=== PATIENT | female | born 2000 | race Caucasian/White ===

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

== ENCOUNTER 2022-01-10 08:00 | Outpatient (RCR) | payer OTHER, SELFPAY ==
--- NOTE | 2021-12-13 09:27 | HP.PTEVAL ---
Patient's Visit Information STEWART AQUINO is a 21 year old F referred to Physical Therapy by ARDEN Berkowitz with a diagnosis of STRAIN OF MUSCLE/TENDIN AT LOWER LEG LEVEL. Date of Evaluation: 12/13/21 Physical Therapist: Cristian Ogden, PT, Cert MDT, OCS - Visit Plan Frequency: 2x /Week Duration: 4 Weeks Plan: PATIENT PLANS TO HAVE MENISCUS REPAIR. PT INTERVETIONS ROM ,STRETCHING KNEE ,GRADED PRE'S QUADS/HAMS/HIP ,FUNCTIONAL STRENGTHNENING AND MODLITIES - Subjective This 21 y/o female presents to physical therapy with with right knee pain . Patient was tumbling gymnastics landed on knee in May 2021 felt pop and immediate edema. Pain located medial /inferior. Patient has popping after sitting for extended . Patient is scheduled for surgery at [facility] but rescheduled for April [address] Mattson. Patient had MRI at [facility] showed meniscus. Patient has continue pain with symptoms worsen. Seen [facility] recommended to reschedule surgery. Last week moving furniture felt pop caused pain thus seen Dr at [facility]. Aggravating squatting /kneeling stairs ,extended sitting. No running. Sleeping good . Alleviating factors ice and Aziza recommended brace. Denies paresthesia/tingling. Patient goal get stronger for surgery. Plan to start ENT program. MEDS : predisone 5day and muscle relaxer. 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 - Pain Right Knee Pain Intensity (Out of 10): 6 Pain Intensity Range: 10 - Objective POSTURE: mild genu recurvatum ,knee valgus. GAIT: ambulates with decrease stance time RLE with brace affecting swing phase. PALPATION: lateral joint line. EDEMA: absent. AROM: 7-127 supine knee flexion pain. MMT: quads 26.7, hamstrings 25.5 ,hip flexion/abduction 4/5 ,ankle 5/5 - Special Tests R Knee Luz Maria - Meniscus: Positive R Knee Anterior Drawer - ACL: Negative R Knee Valgus - MCL: Negative R Knee Varus - LCL: Positive - Balance/Special Test Scores Lower Extremity Functional Score: 33 - Goals Goal 1:: I with HEP for right knee Goal Time Frame: 4-6 Weeks Goal 2:: Patient to demonstrate 50% improvement with increase function and less pain Goal Time Frame: 4-6 Weeks Goal 3:: Patient to improve AROM knee 0-130 degrees to improve function with stairs Goal Time Frame: 4-6 Weeks Goal 4:: Patient to improve MMT peak force of knee by 5 to improve function Goal Time Frame: 4-6 Weeks Goal 5:: Patient to improve LFES score by 5 points to improve function and QOL. Goal Time Frame: 4-6 Weeks - Rehabilitation Potential Physical Therapy Diagnosis: Patient has meniscus tear and plans to have repair of meniscus Apr 2021 with current impairments with pain ,decrease ROM weakness and affects walking stairs and job activities thus need skilled PT PT. Rehabilitation Potential: Good - Anticipated Interventions Patient/Client Instruction: Educate patient on: Condition, Plan of Care For the Purpose of:: To decrease pain, To increase ROM, To improve muscle performance and motor function, To improve ability to perform ADL's, To increase tolerance to activity/condition/position, To improve performance and independence with ADL's, To improve ability of physical actions for home/community/work/leisure, To improve health of tissue, To decrease soft tissue restriction, To increase flexibility/ROM, To improve endurance, To improve balance, To reduce risk of recurrence, To prevent re-injury Therapeutic Exercise to Include: Strength training, Endurance training, Balance training, Postural training, Flexibilty training, Active ROM For the Purpose of:: To decrease pain, To increase ROM, To improve muscle performance and motor function, To improve ability to perform ADL's, To increase tolerance to activity/condition/position, To improve ability of physical actions for home/community/work/leisure, To improve health of tissue, To decrease soft tissue restriction, To increase flexibility/ROM, To reduce risk of recurrence, To prevent re-injury TENS: Yes IF ES: Yes Cryotherapy (ice pack, ice massage): Yes Thermo therapy (hot pack): Yes Ultrasound (thermal/non thermal): Yes For the Purpose of:: To decrease pain, To increase ROM, To improve nutrient delivery to tissue, To increase oxygenation perfusion, To improve health of tissue, To decrease soft tissue restriction Thank you for the opportunity to evaluate your patient. For Medicare and Medicare HMO plans, please review the plan of care and approve it. It will need to be FAXED BACK to us at [phone] for Medicare purposes. For Medicare only, by signing this I certify the plan of care. Please let me know if there are questions or concerns regarding this plan of care. Physician Signature: Date:
--- NOTE | 2022-01-10 08:28 | HP.PTDCSUM ---
It has been my pleasure to treat STEWART AQUINO referred by ARDEN Berkowitz, with the diagnosis of Right STRAIN OF MUSCLE/TENDIN AT LOWER LEG LEVEL for a total of 8 visit(s). Discharge Date: 01/10/22 Please see the following information for a summary of their discharge status. Subjective: Patient plan to have to have surgery meniscectomy tomorrow Right Knee Pain Intensity (Out of 10): 0 % Improvement: 50 Objective/Function: POSTURE: WFL. GAIT: reciprocal pattern. AROM: 2-135 DEGREES. MMT: quads/hams 4/5 ,hip abduction 4/5,ankle 5/5 Goal 1:: I with HEP for right knee Goal Progress: Goal Met Goal 2:: Patient to demonstrate 50% improvement with increase function and less pain Goal Progress: Progressing Goal 3:: Patient to improve AROM knee 0-130 degrees to improve function with stairs Goal Progress: Goal Met Goal 4:: Patient to improve MMT peak force of knee by 5 to improve function Goal Progress: Goal Met Goal 5:: Patient to improve LFES score by 5 points to improve function and QOL. Goal Progress: Goal Met Plan: D/C PLAN TO HAVE SURGERY Discharge Comments: SCEDULED FOR SURGERY If there are questions or concerns regarding this patient's physical therapy, please feel free to call me at [phone]. Thank you for the referral of this patient. Sincerely, Cristian Ogden, PT, Cert MDT, OCS Balance/Gait/Functional tests - Balance/Special Test Scores Lower Extremity Functional Score: 54
== END 2022-01-10 19:00 | disposition home or self-care (01) ==
LOC: PT 08:00
PROVIDERS: PCP Pediatrics; Referring Provider Physician Assistant; Visit Provider Physician Assistant
DX: S86.911D Strain of unspecified muscle(s) and tendon(s) at lower leg level, right leg, subsequent encounter (principal)
CPT/HCPCS: 97110; 97161; 97530

== ENCOUNTER 2022-02-22 08:00 | Outpatient (RCR) | payer OTHER, SELFPAY ==
--- NOTE | 2022-02-08 08:44 | HP.PTEVAL_ITS ---
Patient's Visit Information STEWART AQUINO is a 21 year old F referred to Physical Therapy by Dr. Paulo Rojas MD with a diagnosis of Right Medial Meniscal Repair and Plica Resection 01/12/22. Date of Evaluation: 02/08/22 Physical Therapist: Shilpa Crain DPT - Visit Plan Frequency: 3x /Week Duration: 4 Weeks Plan: Meniscal Repair 01/12/22- no restrictions- can wean from brace and crutches as tolerated. HEP Given IE: ROM Ex both flexion and extension and quad sets in supine/seated/prone - Subjective Right Medial Meniscal Repair and Plica Resection by Dr. Rojas 01/12/22. Original injury was gymnastics in May. Feb 03 she was given WBAT but told her to use her crutches- she is wearing a TROM brace every day. Worst: 6/10 Agg: any sort of pressure on the medial aspect of the knee. Eases: heat Best: 0/10. Describes the pain as sharp. No radiating pain into the hip/ankle. No N/T. She was given SLR during her 1 week post op so thats what she has been doing. Sleep: not disturbed- does not sleep in the brace since she saw him. 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 PMHx: none Meds: control - Objective Posture: fair throughout. Gait: slightly antalgic- decrease stance on right LE with poor heel strike. HR/TR: able without UE A. SLS: 10 sec with moderate sway. Observation: well healed incision no s/s of infection. Palpation: tender along medial joint line and medial patella. ROM: Right: 10-120 degrees Left: -5-140 degrees. Strength: Core: fair plus, Hip: 4+/5 throughout, Knee: Extn: Right: 25/24 Left: 63/64- Quad set visible but weak- mild SLR lag. Flexion: Right: 24/25 Left:50/48. Girth: Patella:36 cm 6: above:49 cm - Balance/Special Test Scores Lower Extremity Functional Score: 39 - Goals Goal 1:: Patient will be I with HEP and progression Goal Time Frame: 4-6 Weeks Goal 2:: Patient will have equal strength in bilateral flexion/extn of knees Goal Time Frame: 4-6 Weeks Goal 3:: Patient will demo 0-140 degrees of ROM in the right knee Goal Time Frame: 4-6 Weeks Goal 4:: Patient will ambulate >300 feet with a normalized gait pattern Goal Time Frame: 4-6 Weeks Goal 5:: Patient will have equal girth 6 above patella Goal Time Frame: 4-6 Weeks - Rehabilitation Potential Physical Therapy Diagnosis: Patient presents with hypomobility s/p right medial meniscal repair- she has decreased LE ROM, strength/stabilization, flex and muscular control leading to abnormal gait and decreased ability to perform ADL's. Rehabilitation Potential: Good - Anticipated Interventions Patient/Client Instruction: Educate patient on: Benefits of Fitness Program Therapeutic Exercise to Include: Strength training, Endurance training, Balance training, Coordination, Agility training, Body mechanics, Postural training, Flexibilty training, Gait and locomotor training, Neuromotor development, Dynamic Lumbar Stabilization, Scapular Strength/Stabilization TENS: Yes Cryotherapy (ice pack, ice massage): Yes Thermo therapy (hot pack): Yes Ultrasound (thermal/non thermal): No Vasopneumatic device: Yes Thank you for the opportunity to evaluate your patient. For Medicare and Medicare HMO plans, please review the plan of care and approve it. It will need to be FAXED BACK to us at [phone] for Medicare purposes. For Medicare only, by signing this I certify the plan of care. Please let me know if there are questions or concerns regarding this plan of care. Physician Signature: Date:
== END 2022-02-22 19:00 | disposition home or self-care (01) ==
LOC: PT 08:00
PROVIDERS: PCP Pediatrics; Referring Provider Orthopaedic Surgery; Visit Provider Orthopaedic Surgery
DX: S83.221A Peripheral tear of medial meniscus, current injury, right knee, initial encounter (principal)
CPT/HCPCS: 97110; 97161

== ENCOUNTER 2022-10-22 17:37 | Emergency (ER) | payer OTHER, SELFPAY ==
[2022-10-22 17:39] VITALS: BP 139/78; PULSE 124; RESP 18; TEMP 37; O2SAT 95; BMI 27.6
--- NOTE | 2022-10-22 17:46 | CT_ITS ---
INDICATION: Pain EXAMINATION: CT ABDOMEN AND PELVIS WITHOUT CONTRAST - CT Abdomen And Pelvis W/O Contrast Injection TECHNIQUE: Helically acquired images were obtained of the abdomen and pelvis without oral or IV contrast. A radiation dose optimization technique was used for this scan. IV Contrast dosage and agent: None. Oral contrast: None. COMPARISON: None. FINDINGS: LOWER CHEST: Lung bases are clear. No cardiomegaly or pericardial effusion. LIVER: Homogeneous. No focal mass. GALLBLADDER AND BILIARY TREE: No calcified gallstones. No gallbladder distension or wall edema. No intra- or extrahepatic biliary ductal dilation. PANCREAS: No focal cystic or solid mass. SPLEEN: Normal size without focal cystic or solid mass. ADRENAL GLANDS: No nodules. KIDNEYS AND URETERS: Normal renal size and position. No hydronephrosis. PERITONEUM: No ascites or free air. No other fluid collection. BOWEL: Significant colonic stool burden with the rectal thickening. Presacral haziness. Moderate colonic stool burden overall. No small bowel obstruction. Normal appendix. LYMPH NODES: No enlarged mesenteric or retroperitoneal lymph nodes. VESSELS: Aorta is non-dilated. URINARY BLADDER: Unremarkable. REPRODUCTIVE ORGANS: No pelvic masses. ABDOMINAL WALL: No discrete abdominal or pelvic wall hernia. BONES: No lytic or blastic abnormality. CT/Abdomen/Pelvis without Cont IMPRESSION: Significant colonic stool burden. Rectal thickening. Consider proctitis. Electronically Signed: Tal Ortiz MD at 19:29 EDT ,
--- NOTE | 2022-10-22 17:47 | ED.VIS.GI ---
HPI HPI - GI History of Present Illness Chief Complaint: Abd Pain Detail of Chief Complaint: Abdominal pain Informant: patient Narrative Narrative: Patient presents emergency department complaint of abdominal pain that started 5 days ago. Patient states that she ate some chicken while in [place] and afterwards started having vomiting. Patient went to urgent care and was told she may have food poisoning and was given some medication to take. Patient states that the vomiting stopped 4 days ago. She continues to have abdominal pain. She also started her menstrual period yesterday and typically the second day is painful and more heavy bleeding. Today the pain became more severe. EMS was called and they gave her Toradol 30 mg IV. Currently rates her pain a 5 out of 10. She denies urinary symptoms. She had no fever. Her last bowel movement was earlier today. [facility] Medical History Contact with and (suspected) exposure to other viral communicable diseases Strain of right knee Home Medications norgestimate 0.25 mg-ethinyl estradiol 35 mcg tablet 1 ea PO QHS 10/15/18 [History Last Taken Unknown] acetaminophen 325 mg tablet (Tylenol) 325 mg PO ONCE PRN fever or pain 12/08/21 [History Last Taken Unknown] dicyclomine 10 mg capsule mg 10/22/22 [History Last Taken Unknown] diphenoxylate-atropine 2.5 mg-0.025 mg tablet tab 10/22/22 [History Last Taken Unknown] metoprolol succinate 25 mg tablet,extended release 24 hr 12.5 mg PO QHS 10/22/22 [History Last Taken Unknown] ondansetron 4 mg disintegrating tablet mg 10/22/22 [History Last Taken Unknown] Allergy/AdvReac Type Severity Reaction Status Date / Time lactose Allergy Mild Unknown Verified 09/14/22 12:17 Family History Grandmother Heart disease Parkinsons Cancer Grandfather Cancer Social History Smoking Status: Never smoker alcohol intake: never ROS ROS ED Review of Systems ROS Unobtainable: other Constitutional Constitutional ED: Reports lethargy; Denies chills, fever(s), sweats or weight loss Eyes Eyes: Denies blurry vision, change in vision or diplopia ENT ENT ED: Denies rhinorrhea or sore throat Cardiovascular Cardiovascular: Denies chest pain, orthopnea or racing heartbeat Respiratory/Chest Respiratory/Chest: Denies cough, dyspnea, dyspnea on exertion, orthopnea or sputum Gastrointestinal Gastrointestinal: Reports abdominal pain, nausea and vomiting; Denies diarrhea Genitourinary Genitourinary ED: Denies dysuria, hematuria or urinary frequency Musculoskeletal Musculoskeletal: Denies arthralgias, back pain, myalgias or neck pain Integumentary Denies abscess, Abrasions or rash Neurologic Neurologic: Denies headache(s) or weakness Psychiatric Psychiatric: Denies anxiety, depression or suicidal thoughts Endocrine Endocrinology: Denies polydipsia, polyphagia or polyuria Hematologic/Lymphatic Hematologic/Lymphatic: Denies easy bleeding, easy bruising or lymphadenopathy Allergic/Immunologic Allergic/Immunologic ED: Denies mouth swelling, tongue swelling or urticaria EXAM Physical Exam Const Vital Signs: 10/22/22 17:39 Temperature 98.6 F Temperature Source Oral Pulse Rate 124 H Respiratory Rate 18 Blood Pressure 139/78 H Blood Pressure Mean 98 Pulse Ox 95 Oxygen Delivery Method Room Air Positive well nourished and well developed General Appearance ED: well developed and NAD HEENT Reports TM's clear and moist mucous membranes normocephalic and atraumatic; Negative for trauma or tenderness Tympanic Membrane ED: Yes TM's clear Eyes PERRL and EOMs intact bilaterally General Eye ED: Negative for pale conjunctiva or scleral icterus Neck no lymphadenopathy, supple and no JVD General: Negative for tenderness Chest Wall inspection of chest normal and palpation of chest normal Chest: Negative for tenderness Resp normal respiratory effort and clear to auscultation bilaterally Effort and Inspection: Negative for respiratory distress or pain with movement Auscultation: Negative for rhonchi, wheezes or diminished lung sounds Cardio regular rate, regular rhythm, S1 normal heart sound, S2 normal heart sound and no murmurs Peripheral Pulses: pulses 2+ throughout GI normal to inspection, nondistended, normoactive bowel sounds, soft to palpation, non-distended and no masses GI Narrative: Tender to palpation over the suprapubic region as well as the left lower quadrant with some guarding. There is no rebound, rigidity, or pedal signs. No mass palpated. Back/Spine no CVA tenderness and no thoracic nor lumbar tenderness Extremity normal to inspection General Extremety ED: Negative for edema General Extremity: Negative for edema Neuro oriented x3, CN's II-XII intact bilaterally, no sensory deficits noted and gait normal Sensorium / Orientation: awake, alert, oriented to person, oriented to place and oriented to time Motor Exam: strength 5/5 throughout and strength abnormal Psych mental status grossly normal Skin no rashes or lesions noted and no wounds MDM MDM MDM Narrative Medical decision making narrative: Patient presents to the emergency department with abdominal pain x5 days. In the differential would be constipation versus bowel obstruction versus appendicitis versus ovarian cyst or kidney stone or other etiology. IV line established. CBC with differential obtained showed an elevated white count of 13.3 with hemoglobin of 14 and platelet count of 418. Chemistries were unremarkable. Lactate was normal at 1.1. hCG was negative. Urinalysis was unremarkable other than some blood however she is on her menstrual period. CT scan of the Yusef without contra showed large mount of dual throughout the colon. I recommended that we perform a rectal exam to rule out impaction. Patient however is refusing. She tells me she has been having bowel movements and has always had problems with constipation. She would like to try MiraLAX at home and drinking [employer] which normally gets her to go. She refused an enema. There is mention of possible proctitis based on CT findings however clinically I feel this is less likely and patient has not been having significant rectal pain or mucus. She is however refusing rectal exam. Lab Data Attestation: I reviewed the patient's lab results. Labs: Laboratory Results - last 24 hr 10/22/22 10/22/22 17:50 18:10 WBC 13.3 H RBC 4.81 Hgb 14.1 Hct 41.9 MCV 87.1 MCH 29.3 MCHC 33.7 RDW Std Deviation 38.5 RDW Coeff of Karrie 12.1 Plt Count 418 MPV 10.7 Immature Gran % (Auto) 0.500 Neut % (Auto) 70.5 H Lymph % (Auto) 20.1 [place] % (Auto) 6.5 Eos % (Auto) 2.0 Baso % (Auto) 0.4 Absolute Neuts (auto) 9.4 H Absolute Lymphs (auto) 2.68 Nucleated RBC % 0 Sodium 139 Potassium 3.3 L Chloride 109 H Carbon Dioxide 21.0 Anion Gap 9 BUN 12 Creatinine 1.02 Estim Creat Clear Calc 66.39 Est GFR (MDRD) Af Amer 88 Est GFR (MDRD) Non-Af 73 BUN/Creatinine Ratio 11.8 Glucose 113 H Lactic Acid 1.1 Calcium 9.6 Serum , Qual NEGATIVE Urine Color Brown Urine Clarity Cloudy Urine pH 7.0 Ur Specific [place] 1.015 Urine Protein 100 H Urine Glucose (UA) Normal Urine Ketones 150 A* Urine Occult Blood 250 H Urine Nitrite Negative Urine Bilirubin 1 H Urine Urobilinogen 12 H Ur Leukocyte Esterase 100 H Urine RBC 10-25 SEEN Urine WBC 5-10 SEEN Ur Squamous Epith Cells 0-5 SEEN Urine Bacteria 2+ Urine Mucus 1+ Radiography Diagnostic Testing: Clinical Impression(s) from Imaging Studies Abdomen/Pelvis CT 10/22/22 17:46 IMPRESSION: Significant colonic stool burden. Rectal thickening. Consider proctitis. Electronically Signed: Tal Ortiz MD at 19:29 EDT Reading Location ID and State: [address] [place] [address] Tel , Service support , Discharge Plan Triage Chief Complaint: Abd Pain ED Provider: Thea Luque Dx/Rx/DC Orders Clinical Impression: Abdominal pain, Constipation Instructions: Abdominal Pain, ED Constipation (Adult) Prescriptions: No Action acetaminophen [Tylenol] 325 mg tablet 325 mg PO ONCE PRN (Reason: fever or pain) norgestimate-ethinyl estradiol 1 EACH tablet 1 ea PO QHS metoprolol succinate 25 mg tablet extended release 24 hr 12.5 mg PO QHS Patient Comments: TAKE 1/2 TABLET (12.5 MG) BY MOUTH EVERY DAY diphenoxylate-atropine 2.5-0.025 mg tablet Patient Comments: TAKE 1 TABLET BY MOUTH TWICE A DAY FOR 3 DAYS NEEDED FOR DIARRHEA ondansetron 4 mg tablet,disintegrating Patient Comments: TAKE 1 TABLET BY MOUTH EVERY 8 HOURS FOR 3 DAYS dicyclomine 10 mg capsule Patient Comments: TAKE 1 CAPSULE BY MOUTH FOUR TIMES A DAY NEEDED FOR ABDOMINAL PAIN FOR 3 DAYS Primary Care Provider: Kayleen Bailey Referrals: Kayleen Bailey MD [Primary Care Provider] - 3-5 Days Disposition Disposition: Home, Self Care
[2022-10-22 17:59] LABS: Absolute Lymphocyte Count 2.68 X10^3/uL (0.83-4.51); Absolute Neutrophil Count 9.4 X10^3/uL (2.0-7.7); Basophil# 0.05 X10^3/uL; Basophil% 0.4 % (0-1); Eosinophil# 0.27 X10^3/uL; Hematocrit 41.9 % (37-47); Hemoglobin 14.1 g/dL (12.0-15.0); Lymphocyte # 2.68 X10^3/ul (0.83-4.51); Lymphocyte % 20.1 % (19-41); Mean Corp Hgb Conc 33.7 g/dL (32-36); Mean Corpuscular Hgb 29.3 pg (27.0-32.0); Mean Corpuscular Volume 87.1 fL (81-99); Mean Platelet Vol. 10.7 fl (6.2-12.0); Monocyte# 0.87 X10^3/uL; Monocyte% 6.5 % (0-10); NRBC Flagged by Analyzer 0 % (0-5); Neutrophil # 9.38 X10^3/uL (2.7-7.7); Neutrophil % 70.5 % (47-70); Platelet Count 418 K/mm3 (150-450); RBC Distribution Width CV 12.1 % (11.6-14.6); RBC Distribution Width SD 38.5 fl (35.1-43.9); Red Blood Count 4.81 M/mm3 (4.2-5.4); White Blood Count 13.3 K/mm3 (4.4-11.0)
[2022-10-22 18:08] LABS: Internal QC Validated? YES +Cl - CLEAR BKGD; Pregnancy, Serum, hCG Quali. NEGATIVE Negative
[2022-10-22] MEDS: 0.9% Normal Saline 1,000 ML 125 ML IV (18:09)
[2022-10-22 18:11] LABS: Anion Gap 9 (5-15); BUN 12 mg/dL (7-18); BUN/Creat Ratio 11.8 RATIO (10-20); Calcium,Total 9.6 mg/dL (8.5-10.1); Chloride 109 mmol/L (98-107); Creatinine, Serum 1.02 mg/dL (0.55-1.02); EST Glomerular Filtration Rate 73 mL/min (>60); Est Glom Filt Rate - Afr Amer 88 mL/min (>60); Estimated Creatinine Clearance 66.39 ml/min; Glucose 113 mg/dL (74-106); Potassium 3.3 mmol/L (3.5-5.1); Sodium Level 139 mmol/L (136-145)
[2022-10-22 18:16] LABS: Glucose, Dipstick Normal (Normal); Leukocyte Esterase-Dipstick 100 /ul (Negative); Nitrite-Dipstick Negative (Negative); Occult Blood-Urine 250 /ul (Negative); Protein-Dipstick 100 mg/dl (Negative); Specific Gravity, Urine 1.015 (1.002-1.030); Urine Urobilinogen 12 mg/dl (Normal)
[2022-10-22 18:23] LABS: Lactic Acid 1.1 mmol/L (0.4-1.9)
[2022-10-22 18:56] LABS: Urine Bilirubin Dipstick 1 mg/dL (Negative)
[2022-10-22 18:57] LABS: Color, Urine Brown (Yellow); Urine Clarity Cloudy (Clear)
[2022-10-22 18:58] LABS: Bacteria 2+ /hpf (None Seen); Ketone-Dipstick 150 mg/dl (Negative); Mucous, Urine 1+ /hpf (<or=2+); Red Blood Cells-Urine 10-25 SEEN /hpf (0-5); Squamous Epithelial Cells - UA 0-5 SEEN /hpf (5-10); White Blood Cells 5-10 SEEN /hpf (0-5)
[2022-10-22 20:18] VITALS: BP 116/65; PULSE 72; RESP 18; O2SAT 100
== END 2022-10-22 20:20 | disposition home or self-care (01) ==
PROVIDERS: Emergency Provider Emergency Medicine; PCP Pediatrics; Visit Provider Emergency Medicine
DX: R10.9 Unspecified abdominal pain (principal); K59.00 Constipation, unspecified; Z79.899 Other long term (current) drug therapy
CPT/HCPCS: 74176; 80048; 81001; 83605; 84703; 85025; 96360; 96361; 99285; J7030; A4216

== ENCOUNTER 2023-03-28 10:00 | Outpatient (RCR) | payer OTHER, SELFPAY ==
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
--- NOTE | 2023-03-15 08:03 | HP.PTREVAL_ITS ---
Re-Evaluation Intro: Mariajose Sanchez, KADEN-C, It has been my pleasure to treat STEWART AQUINO over the last 7 visits for Trap muscle spasm, Acute POLLOCK, concussion w/o loss of consciousness. Please see the progress note below for an update on the physical therapy plan of care! Subjective Subjective: Freq of POLLOCK have gone down but Sunday night she had a bad migraine that was the first time in a little bit. L side of her neck has been bothering her still. Objective Objective/Function: C-spine AROM: flexion 75%, Ext 50%, Rot B 100%, SB B 100% (increase pain in all directions) Plan Plan Plan: Continue current treatment for another 2-3 weeks with HEP Balance/Gait/Functional tests Balance/Special Test Scores Oswestry Neck Score: 9 Goals Goals Goal 1:: I HEP Goal Time Frame: 6-8 Weeks Goal Progress: Goal Met Goal 2:: Sit with upright posture Goal Time Frame: 6-8 Weeks Goal Progress: Goal Met Goal 3:: Decrease POLLOCK to 1X/ week Goal Time Frame: 6-8 Weeks Goal Progress: Goal Met Goal 4:: Increase C-spine AROM all planes with no pain (at time of the eval: C- spine AROM: flexion 75%, Ext 25%, Rot B 75%, SB B 75% (increase pain in all directions) Goal Time Frame: 6-8 Weeks Anticipated Interventions Anticipated Interventions Patient/Client Instruction: Educate patient on: Condition and Plan of Care For the Purpose of:: To decrease pain, To increase ROM, To improve nutrient delivery to tissue, To improve muscle performance and motor function, To improve ability to perform ADL's, To increase tolerance to activity/condition/position, To improve performance and independence with ADL's, To decrease level of supervision to perform tasks, To improve ability of physical actions for home/community/work/leisure, To improve health of tissue, To decrease soft tissue restriction and To increase flexibility/ROM Therapeutic Exercise to Include: Strength training, Postural training, Flexibilty training, Neuromotor development, Passive ROM, Active ROM, Dynamic Lumbar Stabilization and Scapular Strength/Stabilization For the Purpose of:: To decrease pain, To increase ROM, To improve nutrient delivery to tissue, To improve muscle performance and motor function, To improve ability to perform ADL's, To increase tolerance to activity/condition/position, To improve performance and independence with ADL's, To decrease level of supervision to perform tasks, To improve ability of physical actions for home/c ommunity/work/leisure, To improve health of tissue, To decrease soft tissue restriction and To increase flexibility/ROM Manual Therapy Techniques to Include: Passive ROM and Soft tissue mobilization For the Purpose of:: To decrease pain, To increase ROM, To improve nutrient delivery to tissue, To improve muscle performance and motor function, To improve ability to perform ADL's, To increase tolerance to activity/condition/position, To improve health of tissue, To decrease soft tissue restriction and To increase flexibility/ROM Re-Evaluation Ending Re-evaluation ending: Please do not hesitate to contact me at [phone] by phone or if you have questions or concerns regarding this new plan of care! Sincerely, Briseyda Valenzuela, MPT
--- NOTE | 2023-03-28 10:37 | HP.PTDCSUM_ITS ---
Discharge Summary D/C summary: It has been my pleasure to treat STEWART AQUINO referred by MARIAELENA Staples, with the diagnosis of Trap muscle spasm, Acute POLLOCK, concussion w/o loss of consciousness for a total of 10 visit(s). Discharge Date: 03/28/23 Please see the following information for a summary of their discharge status. Subjective Subjective: Her last POLLOCK was Sunday and it was not bad. Pain neck pain: Pain Intensity (Out of 10): 0 POLLOCK: Pain Intensity (Out of 10): 0 Overall Improvement % Improvement: 100 Objective Objective/Function: C-spine AROM: Full ROM in all planes Goals Goal 1:: I HEP Goal Progress: Goal Met Goal 2:: Sit with upright posture Goal Progress: Goal Met Goal 3:: Decrease POLLOCK to 1X/ week Goal Progress: Goal Met Goal 4:: Increase C-spine AROM all planes with no pain (at time of the eval: C- spine AROM: flexion 75%, Ext 25%, Rot B 75%, SB B 75% (increase pain in all directions) Goal Progress: Goal Met Plan Plan: DC PT to HEP D/C Information Discharge Comments: DC PT to HEP d/c sentence: If there are questions or concerns regarding this patient's physical therapy, please feel free to call me at [phone]. Thank you for the referral of this patient. Sincerely, Briseyda Valenzuela, MPT Balance/Gait/Functional tests Balance/Special Test Scores Oswestry Neck Score: 0 Improvement % Improvement: 100
== END 2023-03-28 14:59 | disposition home or self-care (01) ==
LOC: PT 10:00
PROVIDERS: PCP Pediatrics; Referring Provider Nurse Practitioner Family; Visit Provider Nurse Practitioner Family
DX: S06.0X0D Concussion without loss of consciousness, subsequent encounter (principal); R51.9 Headache, unspecified; M62.838 Other muscle spasm
CPT/HCPCS: 97110; 97140; 97161; 97530

== ENCOUNTER 2023-07-06 10:32 | Emergency (ER) | payer OTHER, SELFPAY ==
[2023-07-06 10:32] VITALS: BP 145/99; PULSE 97; RESP 16; TEMP 36.1; O2SAT 100; BMI 25.8
--- NOTE | 2023-07-06 10:41 | ED.VIS.LOWEX ---
HPI History of Present Illness HPI Narrative: Patient presents with right knee pain that began after a fall last night. Patient states she fell onto her right knee and felt a pop. Patient states her pain is worse with weightbearing. Patient describes her pain as constant aching but sharp whenever she tries to bear weight. Patient states she has been using ice to her knee which has been helping somewhat. Patient states she has been taking Tylenol and ibuprofen which has been helping somewhat. Patient denies any paresthesias or weakness. Patient denies any other injuries. Patient states she has had a prior arthroscopy to her right knee for meniscus tear. Chief Complaint: Lower Extremity Injury Occured/Mechanism Mechanism/Context: Yes fall Onset/Context/Timing Onset: Yesterday Context: Sudden Onset Timing: Continuous Quality of Pain: Sharp and Aching Location: Right knee Worsened by: Weightbearing Relieved by: Ice, Tylenol, ibuprofen Associated Symptoms Associated Symptoms: Negative for Parasthesia, Weakness or Loss of Funtion [facility] Medical History (Updated 07/06/23 @ 11:[address] Cain Modi, DO) Cephalgia Contact with and (suspected) exposure to other viral communicable diseases PVCs (premature ventricular contractions) Strain of right knee Home Medications norgestimate 0.25 mg-ethinyl estradiol 35 mcg tablet 1 ea PO QHS 10/15/18 [History Last Taken Unknown] acetaminophen 325 mg tablet (Tylenol) 325 mg PO ONCE PRN fever or pain 12/08/21 [History Last Taken Unknown] dicyclomine 10 mg capsule mg 10/22/22 [History Last Taken Unknown] diphenoxylate-atropine 2.5 mg-0.025 mg tablet tab 10/22/22 [History Last Taken Unknown] metoprolol succinate 25 mg tablet,extended release 24 hr 12.5 mg PO QHS 10/22/22 [History Last Taken Unknown] ondansetron 4 mg disintegrating tablet mg 10/22/22 [History Last Taken Unknown] Allergy/AdvReac Type Severity Reaction Status Date / Time lactose Allergy Mild Unknown Verified 07/06/23 10:33 Family History Grandmother Heart disease Parkinsons Cancer Grandfather Cancer Surgical History Hx of arthroscopy of right knee Social History Smoking Status: Never smoker alcohol intake: never ROS ROS ED Constitutional Constitutional ED: Denies chills or fever(s) Eyes Eyes: Denies blurry vision or change in vision ENT ENT ED: Denies rhinorrhea or sore throat Cardiovascular Cardiovascular: Denies chest pain or palpitations Respiratory/Chest Respiratory/Chest: Denies cough or dyspnea Gastrointestinal Gastrointestinal: Denies nausea or vomiting Genitourinary Genitourinary ED: Denies dysuria or hematuria Musculoskeletal Musculoskeletal: Denies back pain or neck pain Integumentary Denies abscess or rash Neurologic Neurologic: Denies headache(s) or weakness Allergic/Immunologic Allergic/Immunologic ED: Denies mouth swelling or urticaria EXAM Physical Exam Const Vital Signs: 07/06/23 10:32 Temperature 97 F L Temperature Source Temporal Pulse Rate 97 Respiratory Rate 16 Blood Pressure 145/99 H Blood Pressure Mean 114 Pulse Ox 100 Oxygen Delivery Method Room Air Positive well nourished and well developed General Appearance ED: well developed and NAD HEENT Reports moist mucous membranes Neck full ROM and supple Extremity Extremity Narrative: There is diffuse tenderness over the right knee. There is slight joint effusion. There is no obvious deformity noted. There is no edema or ecchymosis. There is no calf tenderness noted. Pedal pulses are equal bilaterally. Strength is 5/5 bilateral in the lower extremities. There are no sensory deficits noted. Extensor mechanism is intact. Neuro oriented x3, CN's II-XII intact bilaterally, moves all extremities and no sensory deficits noted Sensorium / Orientation: alert Motor Exam: strength 5/5 throughout Psych mental status grossly normal MDM MDM MDM Narrative Medical decision making narrative: Differential diagnosis includes sprain, occult fracture, and contusion. X-rays of the right knee will be obtained for fracture. Radiography Diagnostic Testing: Clinical Impression(s) from Imaging Studies Knee X-Ray 07/06/23 10:55 IMPRESSION: Normal x-ray examination of the knee. Electronically Signed: Luis Miguel Francis MD at 11:17 EDT , X-rays of the right knee were obtained. There are 4 views. On my independent interpretation, there is no acute fracture or dislocation. There is no loose body noted. Radiologist also interpreted the x-rays and agrees. Treatment and Re-Evaluation Narrative: Patient was advised of her findings. Patient was advised that this could be something in the soft tissue such as ligaments, tendons, and cartilage. Patient was instructed to continue using ice to the area. Patient was instructed to continue using Tylenol and ibuprofen as needed. Patient was instructed to follow-up with her primary care physician in 5 to 7 days. Patient understood and was agreeable with the plan. All questions were answered. Discharge Plan Triage Chief Complaint: Lower Extremity Injury ED Provider: Cain Modi Dx/Rx/DC Orders Clinical Impression: Strain of right knee, Fall Instructions: ED Knee Pain of Uncertain Cause Prescriptions: No Action acetaminophen [Tylenol] 325 mg tablet 325 mg PO ONCE PRN (Reason: fever or pain) norgestimate-ethinyl estradiol 1 EACH tablet 1 ea PO QHS metoprolol succinate 25 mg tablet extended release 24 hr 12.5 mg PO QHS Patient Comments: TAKE 1/2 TABLET (12.5 MG) BY MOUTH EVERY DAY diphenoxylate-atropine 2.5-0.025 mg tablet Patient Comments: TAKE 1 TABLET BY MOUTH TWICE A DAY FOR 3 DAYS NEEDED FOR DIARRHEA ondansetron 4 mg tablet,disintegrating Patient Comments: TAKE 1 TABLET BY MOUTH EVERY 8 HOURS FOR 3 DAYS dicyclomine 10 mg capsule Patient Comments: TAKE 1 CAPSULE BY MOUTH FOUR TIMES A DAY NEEDED FOR ABDOMINAL PAIN FOR 3 DAYS Primary Care Provider: Kayleen Bailey Referrals: Kayleen Bailey MD [Primary Care Provider] - 5-7 Days Disposition Disposition: Home, Self Care
--- NOTE | 2023-07-06 10:55 | RAD_ITS ---
STUDY: X-RAY - RIGHT KNEE REASON FOR EXAM: Female, 23 years old. Injury/Pain TECHNIQUE: 4 view(s) of the knee. COMPARISON: None. FINDINGS: Normal visualized distal femur. Normal visualized proximal tibia and fibula. Normal proximal tibiofibular articulation. Normal medial femorotibial compartment. Normal lateral femorotibial compartment. Normal patellofemoral articulation. The soft tissue structures are unremarkable. RAD/Knee 4 or More Views IMPRESSION: Normal x-ray examination of the knee. Electronically Signed: Luis Miguel Francis MD at 11:17 EDT ,
[2023-07-06 11:32] VITALS: BP 118/78; PULSE 64; RESP 18; TEMP 36.4; O2SAT 99
== END 2023-07-06 11:53 | disposition home or self-care (01) ==
PROVIDERS: Emergency Provider Emergency Medicine; PCP Pediatrics; Visit Provider Emergency Medicine
DX: S83.91XA Sprain of unspecified site of right knee, initial encounter (principal); W19.XXXA Unspecified fall, initial encounter
CPT/HCPCS: 73564; 99282

== ENCOUNTER 2023-11-01 11:54 | Emergency (ER) | payer OTHER, SELFPAY ==
[2023-11-01 11:55] VITALS: BP 118/78; BP 120/81; PULSE 131; PULSE 133; RESP 12; RESP 16; TEMP 36.1; O2SAT 96; BMI 26.9
--- NOTE | 2023-11-01 12:30 | EKG12_ITS ---
Test Reason : Blood Pressure : / mmHG Vent. Rate : 125 BPM Atrial Rate : 125 BPM P-R Int : 152 ms QRS Dur : 082 ms QT Int : 298 ms P-R-T Axes : 065 064 025 degrees QTc Int : 430 ms Sinus tachycardia Borderline ECG Non-specific ST & T wave changes POSSIBLY AGE RELATED Confirmed by Rubio Paulino ([id number]), loan expeditor AGUSTIN MCCLURE ([id number]) on 11/02/2023 8:19:05 AM Referred By: ROCIO Confirmed By:Rubio Paulino
--- NOTE | 2023-11-01 12:31 | EDS_ITS ---
HPI History of Present Illness Chief Complaint: Chest Pain Narrative Narrative: 23-year-old female past medical history of previous chest pain with PVCs, on a beta-reuben, sees Dr. Paulino as her public service representative, presents with chest pain that she has had all day today. She states it may have started yesterday but did not feel as bad as when she woke up today. No exacerbating or alleviating factors. And may be pleuritic but she denies any leg swelling. No recent fevers or chills, no cough. She was nauseated and vomited twice in association with the pain. She denies any diaphoresis. No DVT or PE risk factors. Non-smoker. [facility] Medical History Physical exam, pre-employment Palpitations Chest pain PVCs (premature ventricular contractions) Cephalgia Contact with and (suspected) exposure to other viral communicable diseases Strain of right knee Home Medications ?Medication ?Instructions ?Recorded ?Last Taken ?Type norgestimate 0.25 mg-ethinyl 1 ea PO QHS 10/15/18 Unknown History estradiol 35 mcg tablet acetaminophen 325 mg tablet 325 mg PO ONCE PRN fever or pain 12/08/21 Unknown History (Tylenol) bisoprolol fumarate 5 mg tablet 5 mg PO DAILY #30 tabs 08/10/23 Unknown Rx fexofenadine 180 mg tablet 180 mg PO DAILY PRN 08/10/23 Unknown History (Raquel Allergy) prednisone 10 mg tablet 10 mg PO DAILY #18 tabs 10/23/23 Unknown Rx Allergy/AdvReac Type Severity Reaction Status Date / Time lactose Allergy Mild Unknown Verified 11/01/23 11:55 adhesive (adhesives) AdvReac Severe Rash Verified 11/01/23 11:55 Family History Grandmother Heart disease Parkinsons Cancer Grandfather Cancer Surgical History Hx of arthroscopy of right knee Social History Smoking Status: Never smoker alcohol intake: never substance use type: does not use caffeine: Yes ROS ROS ED ROS Narrative Constitutional: No fever, no chills. HEENT: No sore throat. No neck pain. No loss of vision. No rhinorrhea. Cardiovascular: Positive diffuse chest pain. No palpitations. No pedal edema. Respiratory: No cough, no shortness of breath. Abdominal: No abdominal pain. Positive nausea and vomiting. Genitourinary: No dysuria. No hematuria. Musculoskeletal: No myalgias. No arthralgias. Neurologic: No headaches. No dizziness. No lightheadedness. Skin: No rash. No change in color. Psychiatric: No depression. No anxiety. EXAM Physical Exam Narrative Exam Narrative: Afebrile. Vital signs noted. HEENT: Normocephalic. Atraumatic. PERRL, EOMI. Neck soft and supple. No point tenderness or step off. Cardiovascular: Positive tachycardia no murmurs, rubs, or gallops appreciated. Respiratory: No tachypnea. Lungs clear to auscultation bilaterally. Gastrointestinal: Abdomen soft, nontender, with normoactive bowel sounds. No rebound or guarding. Neurological: Awake. Alert. Nonfocal, nonlateralizing. Skin: No rash. Normal color. No pallor. Musculoskeletal: No pedal edema. Full range of motion extremities. Const Vital Signs: 11/01/23 11:55 11/01/23 11:55 11/01/23 12:30 Temperature 96.9 F L Temperature Source Temporal Pulse Rate 133 H 131 H Respiratory Rate 12 16 Blood Pressure 120/81 H 118/78 Blood Pressure Mean 94 91 Pulse Ox 96 96 Oxygen Delivery Method Room Air Room Air Room Air 11/01/23 13:55 11/01/23 15:00 11/01/23 16:55 Temperature 97 F L Temperature Source Pulse Rate 126 H 110 H 100 Respiratory Rate 14 13 17 Blood Pressure 132/89 H 127/73 H 124/89 H Blood Pressure Mean 103 91 100 Pulse Ox 96 96 96 Oxygen Delivery Method Room Air Room Air Heart Score History: Slightly/Non-Suspicious ECG: Normal Age: </= 45 years Risk Factors: No Risk Factors Troponin: </= Normal Limit Score: 0 MDM MDM MDM Narrative Medical decision making narrative: Differential diagnosis includes but not limited to ACS versus pulmonary embolism versus pneumothorax versus pneumonia versus anxiety. I have lower suspicion for the latter 2 diagnoses because history and physical does not support this. She states she already took her beta-reuben. EKG was obtained and interpreted by myself independently as sinus tachycardia at 125 bpm without ectopy or acute ST changes. No STEMI. I reviewed her laboratory work and she has normal white count of 10.7, hemoglobin 14.1, hematocrit 40.5, platelet count normal at 274. D-dimer is negative at less than 0.27, so I doubt pulmonary embolism. Potassium slightly low at 3.3 which he think is nonspecific, she has had this in the past as well. Magnesium normal at 1.8, troponin initially is 4 with repeat at 2 hours being 4 as well. Lipase normal at 15 so I doubt pancreatitis. Serum is negative. Urinalysis negative for infection. Chest x-ray interpreted by myself independently shows no evidence of an acute process no pneumothorax or pneumonia.. I reviewed the radiology report which confirms my independent interpretation. At this point in time, I am unsure as to the cause of her chest pain. She remains intermittently tachycardic. There may be some anxiety component to this as well. RN stated that she requested pain medication for her headache. I did offer her something more for pain such as Toradol, but she declined and stated she wanted discharge. I feel she can be discharged to follow-up with her public service representative. I am unsure to the cause of her chest pain, but given her negative workup including a negative D-dimer, I feel she can be discharged to follow-up. Return instructions to the emergency department were reviewed. Disposition is discharged home in stable condition. History & Record Review Discussion w/independent historian: Patient and Family Lab Data Attestation: I reviewed the patient's lab results. Labs: Laboratory Results - last 24 hr 11/01/23 11/01/23 11/01/23 12:46 12:50 14:55 WBC 10.7 RBC 4.71 Hgb 14.1 Hct 40.5 MCV 86.0 MCH 29.9 MCHC 34.8 RDW Std Deviation 38.5 RDW Coeff of Karrie 12.2 Plt Count 274 MPV 9.6 Immature Gran % (Auto) 0.200 Neut % (Auto) 85.6 H Lymph % (Auto) 4.1 L [place] % (Auto) 6.3 Eos % (Auto) 3.5 Baso % (Auto) 0.3 Absolute Neuts (auto) 9.2 H Absolute Lymphs (auto) 0.44 L Nucleated RBC % 0 D-Dimer Quant (PE/DVT) < 0.27 L Sodium 137 Potassium 3.3 L Chloride 107 Carbon Dioxide 23.0 Anion Gap 7 BUN 5 L Creatinine 0.74 Estim Creat Clear Calc 103.66 Est GFR (MDRD) Af Amer 127 Est GFR (MDRD) Non-Af 105 BUN/Creatinine Ratio 6.8 L Glucose 112 H Calcium 9.3 Magnesium 1.8 Troponin I High Sens 4 4 Lipase 15 Serum , Qual NEGATIVE Urine Color Yellow Urine Clarity Clear Urine pH 7.0 Ur Specific [place] 1.010 Urine Protein Negative Urine Glucose (UA) Normal Urine Ketones Negative Urine Occult Blood Negative Urine Nitrite Negative Urine Bilirubin Negative Urine Urobilinogen 1 H Ur Leukocyte Esterase Negative Urine RBC 0 SEEN Urine WBC 0 SEEN Ur Squamous Epith Cells 5-10 SEEN Urine Bacteria 1+ Urine Mucus 0 SEEN Radiography Diagnostic Testing: Clinical Impression(s) from Imaging Studies Chest X-Ray 11/01/23 12:55 IMPRESSION: Normal x-ray examination of the chest. Electronically Signed: Darío Cardenas MD at 13:07 EDT Reading Location ID and State: [facility] / [place] , Service support , Discharge Plan Triage Chief Complaint: Chest Pain ED Provider: Antoine Dodson Dx/Rx/DC Orders Clinical Impression: Chest pain, Tachycardia Instructions: ED Chest Pain, Uncertain Cause, ED Pain, Acute, Uncertain Cause Prescriptions: No Action acetaminophen [Tylenol] 325 mg tablet 325 mg PO ONCE PRN (Reason: fever or pain) fexofenadine [Rauqel Allergy] 180 mg tablet 180 mg PO DAILY PRN bisoprolol fumarate 5 mg tablet 5 mg PO DAILY Qty: 30 5RF prednisone 10 mg tablet 10 mg PO DAILY Qty: 18 0RF Rx Instructions: 3 tablets daily x3 days, then 2 tablets daily x3 days, then 1 tablet daily x3 days norgestimate-ethinyl estradiol 1 EACH tablet 1 ea PO QHS Primary Care Provider: Kayleen Bailey Referrals: Kayleen Bailey MD [Primary Care Provider] - As soon as possible Rubio Paulino MD [Med Staff - Active Staff] - As soon as possible Print Language: Gibraltarian Disposition Disposition: Home, Self Care Discharge Date/Time: 11/01/23 16:56
--- NOTE | 2023-11-01 12:55 | RAD_ITS ---
STUDY: X-RAY CHEST REASON FOR EXAM: Female, 23 years old. chest pain TECHNIQUE: Single AP portable view of the chest. COMPARISON: 02/15/2021 FINDINGS: EKG leads overlie the chest The lungs are clear and expanded. There is no demonstrated pleural abnormality. Normal size heart. Normal mediastinum and yonny. Normal visualized pulmonary arteries. Normal visualized aortic arch and descending thoracic aorta. Normal visualized thoracic spine. Normal visualized ribs, clavicles, and shoulders. There is no demonstrated abnormality of the visualized soft tissue structures of the upper abdomen. RAD/Chest 1 View (Portable) IMPRESSION: Normal x-ray examination of the chest. Electronically Signed: Darío Cardenas MD at 13:07 EDT ,
[2023-11-01] MEDS: 0.9% Normal Saline (1000mL) 1,000 ML 999 ML IV (12:58)
[2023-11-01 13:04] LABS: Absolute Lymphocyte Count 0.44 X10^3/uL (0.83-4.51); Absolute Neutrophil Count 9.2 X10^3/uL (2.0-7.7); Basophil# 0.03 X10^3/uL; Basophil% 0.3 % (0-1); Eosinophil# 0.38 X10^3/uL; Eosinophils% 3.5 % (0-5); Hematocrit 40.5 % (37-47); Hemoglobin 14.1 g/dL (12.0-15.0); Lymphocyte # 0.44 X10^3/ul (0.83-4.51); Lymphocyte % 4.1 % (19-41); Mean Corp Hgb Conc 34.8 g/dL (32-36); Mean Corpuscular Hgb 29.9 pg (27.0-32.0); Mean Platelet Vol. 9.6 fl (6.2-12.0); Monocyte# 0.68 X10^3/uL; Monocyte% 6.3 % (0-10); NRBC Flagged by Analyzer 0 % (0-5); Neutrophil # 9.16 X10^3/uL (2.7-7.7); Neutrophil % 85.6 % (47-70); POSITIVE DIFFERENTIAL YES; Platelet Count 274 K/mm3 (150-450); RBC Distribution Width CV 12.2 % (11.6-14.6); RBC Distribution Width SD 38.5 fl (35.1-43.9); Red Blood Count 4.71 M/mm3 (4.2-5.4); White Blood Count 10.7 K/mm3 (4.4-11.0)
[2023-11-01 13:14] LABS: Anion Gap 7 (5-15); BUN 5 mg/dL (7-18); BUN/Creat Ratio 6.8 RATIO (10-20); Calcium,Total 9.3 mg/dL (8.5-10.1); Chloride 107 mmol/L (98-107); Creatinine, Serum 0.74 mg/dL (0.55-1.02); EST Glomerular Filtration Rate 105 mL/min (>60); Est Glom Filt Rate - Afr Amer 127 mL/min (>60); Estimated Creatinine Clearance 103.66 ml/min; Glucose 112 mg/dL (74-106); Magnesium 1.8 mg/dL (1.6-2.6); Potassium 3.3 mmol/L (3.5-5.1); Sodium Level 137 mmol/L (136-145); Troponin-I HS (w/2H Reflex) 4 pg/mL (3.0-54.0)
[2023-11-01 13:47] LABS: D-Dimer Quantitative (DVT/PE) < 0.27 FEU/ug/m (0.27-0.49)
[2023-11-01 13:55] VITALS: BP 132/89; PULSE 126; RESP 14; O2SAT 96
[2023-11-01] MEDS: Ondansetron 4 MG/2 ML Vial IV (14:19)
[2023-11-01 14:20] LABS: Mucous, Urine 0 SEEN /hpf (<or=2+); Red Blood Cells-Urine 0 SEEN /hpf (0-5); White Blood Cells 0 SEEN /hpf (0-5)
[2023-11-01 14:22] LABS: Internal QC Validated? YES +Cl - CLEAR BKGD; Pregnancy, Serum, hCG Quali. NEGATIVE Negative
[2023-11-01 14:23] LABS: Lipase 15 U/L (13-75)
[2023-11-01 14:25] LABS: Color, Urine Yellow (Yellow); Glucose, Dipstick Normal (Normal); Ketone-Dipstick Negative (Negative); Leukocyte Esterase-Dipstick Negative /ul (Negative); Nitrite-Dipstick Negative (Negative); Occult Blood-Urine Negative /ul (Negative); Protein-Dipstick Negative (Negative); Urine Bilirubin Dipstick Negative (Negative); Urine Clarity Clear (Clear); Urine Urobilinogen 1 mg/dl (Normal)
[2023-11-01 14:40] LABS: Bacteria 1+ /hpf (None Seen); Squamous Epithelial Cells - UA 5-10 SEEN /hpf (5-10)
[2023-11-01 14:52] LABS: Reflex Troponin-HS? (from REC) Y
[2023-11-01 15:00] VITALS: BP 127/73; PULSE 110; RESP 13; O2SAT 96
[2023-11-01 16:00] LABS: Troponin-I HS 4 pg/mL (3.0-54.0)
[2023-11-01 16:55] VITALS: BP 124/89; PULSE 100; RESP 17; TEMP 36.1; O2SAT 96
== END 2023-11-01 16:56 | disposition home or self-care (01) ==
PROVIDERS: Emergency Provider Emergency Medicine; PCP Pediatrics; Visit Provider Emergency Medicine
DX: R07.9 Chest pain, unspecified (principal); R00.0 Tachycardia, unspecified; I49.3 Ventricular premature depolarization; Z79.899 Other long term (current) drug therapy
CPT/HCPCS: 71045; 80048; 81001; 83690; 83735; 84484; 84703; 85025; 85379; 93005; 96361; 96374; 99284; J7030; A4216; J2405

== ENCOUNTER → 2023-11-22 | Outpatient (CLI) | payer OTHER, SELFPAY | END | disposition home or self-care (01) | PROVIDERS: Referring Provider Internal Medicine Cardiovascular Disease; Visit Provider Internal Medicine Cardiovascular Disease | DX: R00.2 Palpitations (principal); R07.9 Chest pain, unspecified; I49.3 Ventricular premature depolarization | CPT/HCPCS: 93225; 93226 ==

== ENCOUNTER 2024-03-24 17:38 | Emergency (ER) | payer OTHER, SELFPAY ==
[2024-03-24 17:41] VITALS: BP 134/82; PULSE 122; RESP 20; TEMP 36.5; O2SAT 98; BMI 25.9
--- NOTE | 2024-03-24 18:14 | EDS_ITS ---
HPI History of Present Illness Chief Complaint: Nausea/Vomiting/Diarrhea PFSH PFS Medical History Physical exam, pre-employment Palpitations Chest pain PVCs (premature ventricular contractions) Cephalgia Contact with and (suspected) exposure to other viral communicable diseases Strain of right knee Home Medications ?Medication ?Instructions ?Recorded ?Last Taken ?Type acetaminophen 325 mg tablet 325 mg PO ONCE PRN fever or pain 12/08/21 Unknown History (Tylenol) bisoprolol fumarate 5 mg tablet 5 mg PO DAILY #30 tabs 08/10/23 Unknown Rx fexofenadine 180 mg tablet 180 mg PO DAILY PRN 08/10/23 Unknown History (Raquel Allergy) fluticasone propionate 50 2 spray intranasal QDAY #16 grams 01/10/24 Unknown Rx mcg/actuation nasal spray,suspension (Flonase Allergy Relief) Allergy/AdvReac Type Severity Reaction Status Date / Time lactose Allergy Mild Unknown Verified 03/24/24 17:43 adhesive (adhesives) AdvReac Severe Rash Verified 03/24/24 17:43 Family History Grandmother Heart disease Parkinsons Cancer Grandfather Cancer Surgical History Hx of arthroscopy of right knee Social History Smoking Status: Never smoker alcohol intake: never substance use type: does not use caffeine: Yes EXAM Physical Exam Const Vital Signs: 03/24/24 17:41 03/24/24 19:38 Temperature 97.7 F L Temperature Source Temporal Pulse Rate 122 H 71 Respiratory Rate 20 H 18 Blood Pressure 134/82 H 128/77 H Blood Pressure Mean 99 94 Pulse Ox 98 99 Oxygen Delivery Method Room Air MDM MDM MDM Narrative Medical decision making narrative: HISTORY OF PRESENT ILLNESS: 3-year-old female here with nausea vomiting diarrhea. States she 17 weeks . States I have noticed a decrease in movement. States she has had crampy abdominal pain all day. She further states symptoms began on (03/20/2024). States since then she has had copious amounts of nonbloody nonbilious vomitus as well as nonbloody nonmelanotic diarrhea. No sick contacts. No travel or recent antibiotics. No history abdominal surgeries. She notes she has been feeling her baby move and has been less than usual. Denies vaginal bleeding, discharge passage of tissue or fluid. She notes she is a G 1P0. REVIEW OF SYSTEMS: Pertinent positives: Abdominal pain, nausea vomiting diarrhea Pertinent negatives: Vaginal bleeding, vaginal discharge PHYSICAL EXAM: Nursing triage notes reviewed, Vital signs reviewed Constitutional: please see mdm HENT: MMM Eyes: Pupils equal round and reactive to light, Extraocular muscles intact Neck: No stridor, no JVD, full neck ROM Lungs: Clear to auscultation, No wheezing or rales. No increased work of breathing, no conversational dyspnea, no accessory muscle use, no nasal flaring. No respiratory distress noted Heart: Regular rate and rhythm, No murmurs, No rubs and No gallops, 2+ distal pulses (radial, femoral, posterior tibial) in all extremities Abdomen: Gravid uterus, soft, there is no significant tenderness, or rigidity, rebound or guarding, no obvious peritoneal signs, no palpable pulsatile abdominal masses, no auscultated abdominal bruit : No CVAT Extremities: No edema Neuro: No new focal neurological deficits, cranial nerves II through XII intact, 5/5 strength in all present extremities. Intact sensation to light touch in all present extremities, 2+ reflexes bilateral patella tendons. Skin: No rash or lesions noted MEDICAL DECISION MAKING: Chief Complaint: Nausea vomiting diarrhea, abdominal cramping External records reviewed: CT scan abdomen pelvis shows stool burden, rectal thickening and proctitis Factors affecting care: 17 weeks OB Social determinants of health: none History obtained from others: none Consults: none [facility] Narrative: Patient was initially tachycardic rate of 122, otherwise afebrile and nontoxic- appearing. Exam with benign abdomen. No peritoneal signs. Gravid uterus. No significant tenderness noted. I considered the following differential diagnosis: loss, dehydration, viral gastroenteritis, electrolyte disturbances, UTI I obtained a broad lab and imaging workup to further elucidate etiology of patient complaints. I gave patient IV fluids, Zofran for symptomatic relief. ALL IMAGES (IF OBTAINED) HAVE BEEN PERSONALLY REVIEWED AND INTERPRETED BY MYSELF. heart rate 152 CBC with leukocytosis suggestive of systemic inflammation likely reactive secondary to , no anemia or thrombocytopenia noted BMP with mild hypokalemia suggestive of dehydration, GI losses, no signs of metabolic acidosis or endorgan hypoperfusion No sign of PRINCESS LFTs show no evidence of hepatobiliary pathology. Lipase is wnl indicating no pancreatic inflammation. Patient cannot provide a urine sample On reevaluation patient abdominal exam is benign. Her blood pressure improved to 120/77, heart rate improved to 71. Stable tolerate p.o. She has Zofran prescription at home. Encouraged continue to take this as needed for nausea and vomiting. I encouraged her to take an electrolyte containing solutions. The patient and/or family, caregivers express understanding. The patient and/or family, caregivers agrees with the plan. Shared decision making: I will have a discussion with the patient and or visitors regarding risk/benefits of further testing or admission. They will be made aware of of the risk/benefits inherent in this decision they will be given the opportunity to voice understanding. Total critical care time today provided was at least 0 minutes. This excludes separately billable procedures. Critical care time (if documented) is secondary to the patient having high probability of clinically significant/life threatening deterioration in the patient's condition which required my urgent intervention. Impression: 1. Nausea vomiting diarrhea 2. Second trimester Dispo: Discharge home This note was generated with quickhuddle dictation software. It may contain incorrect words, spelling, and punctuation that were not noted in review of the chart prior to signing. Lab Data Labs: Laboratory Results - last 24 hr 03/24/24 18:20 WBC 15.2 H RBC 4.51 Hgb 13.5 Hct 39.2 MCV 86.9 MCH 29.9 MCHC 34.4 RDW Std Deviation 42.0 RDW Coeff of Karrie 13.3 Plt Count 309 MPV 9.5 Immature Gran % (Auto) 0.300 Neut % (Auto) 75.8 H Lymph % (Auto) 16.4 L [place] % (Auto) 4.7 Eos % (Auto) 2.6 Baso % (Auto) 0.2 Absolute Neuts (auto) 11.5 H Absolute Lymphs (auto) 2.49 Nucleated RBC % 0 Sodium 139 Potassium 3.2 L Chloride 109 H Carbon Dioxide 22.0 Anion Gap 8 BUN 4 L Creatinine 0.55 Estim Creat Clear Calc 136.75 Est GFR (MDRD) Af Amer 177 Est GFR (MDRD) Non-Af 146 BUN/Creatinine Ratio 7.2 L Glucose 98 Calcium 9.2 Total Bilirubin 0.40 AST 14 L ALT 21 Alkaline Phosphatase 59 Total Protein 6.8 Albumin 3.4 Globulin 3.4 Albumin/Globulin Ratio 1.0 Lipase 19 Discharge Plan Triage Chief Complaint: Nausea/Vomiting/Diarrhea ED Provider: Len Haile Dx/Rx/DC Orders Prescriptions: No Action acetaminophen [Tylenol] 325 mg tablet 325 mg PO ONCE PRN (Reason: fever or pain) fexofenadine [Raquel Allergy] 180 mg tablet 180 mg PO DAILY PRN bisoprolol fumarate 5 mg tablet 5 mg PO DAILY Qty: 30 5RF fluticasone propionate [Flonase Allergy Relief] 50 mcg/actuation spray,suspension 2 spray intranasal QDAY Qty: 16 0RF Rx Instructions: administer into each nostril Primary Care Provider: Care Physician,No Primary Referrals: Care Physician,No Primary [Primary Care Provider] - Print Language: Divehi
--- NOTE | 2024-03-24 18:22 | EKG12_ITS ---
Test Reason : DYSRHYTHMIA Blood Pressure : */* mmHG Vent. Rate : 124 BPM Atrial Rate : 124 BPM P-R Int : 138 ms QRS Dur : 90 ms QT Int : 322 ms P-R-T Axes : 74 66 51 degrees QTcB Int : 462 ms Sinus tachycardia Nonspecific ST and T wave abnormality Abnormal ECG Confirmed by MARKO SANTIAGO, JOSE M ([id number]), social media editor AGUSTIN MCCLURE ([id number]) on 03/31/2024 2:24:00 PM Referred By: Confirmed By: JOSE M ZHU MD
[2024-03-24] MEDS: Ondansetron 4 MG/2 ML Vial IV (18:35)
[2024-03-24] MEDS: 0.9% Normal Saline (1000mL) 1,000 ML 999 ML IV (18:35)
[2024-03-24 18:43] LABS: Absolute Lymphocyte Count 2.49 X10^3/uL (0.83-4.51); Absolute Neutrophil Count 11.5 X10^3/uL (2.0-7.7); Basophil# 0.03 X10^3/uL; Basophil% 0.2 % (0-1); Eosinophils% 2.6 % (0-5); Hematocrit 39.2 % (37-47); Hemoglobin 13.5 g/dL (12.0-15.0); Lymphocyte # 2.49 X10^3/ul (0.83-4.51); Lymphocyte % 16.4 % (19-41); Mean Corp Hgb Conc 34.4 g/dL (32-36); Mean Corpuscular Hgb 29.9 pg (27.0-32.0); Mean Corpuscular Volume 86.9 fL (81-99); Mean Platelet Vol. 9.5 fl (6.2-12.0); Monocyte# 0.72 X10^3/uL; Monocyte% 4.7 % (0-10); NRBC Flagged by Analyzer 0 % (0-5); Neutrophil # 11.53 X10^3/uL (2.7-7.7); Neutrophil % 75.8 % (47-70); Platelet Count 309 K/mm3 (150-450); RBC Distribution Width CV 13.3 % (11.6-14.6); Red Blood Count 4.51 M/mm3 (4.2-5.4); White Blood Count 15.2 K/mm3 (4.4-11.0)
[2024-03-24 19:01] LABS: AST(SGOT) 14 U/L (15-37); Alanine Aminotransfer ALT/SGPT 21 U/L (13-56); Albumin, Serum 3.4 g/dL (3.2-5.0); Alkaline Phosphatase 59 U/L (45-117); Anion Gap 8 (5-15); BUN 4 mg/dL (7-18); BUN/Creat Ratio 7.2 RATIO (10-20); Calcium,Total 9.2 mg/dL (8.5-10.1); Chloride 109 mmol/L (98-107); Creatinine, Serum 0.55 mg/dL (0.55-1.02); EST Glomerular Filtration Rate 146 mL/min (>60); Est Glom Filt Rate - Afr Amer 177 mL/min (>60); Estimated Creatinine Clearance 136.75 ml/min; Globulin 3.4 g/dL (2.2-4.2); Glucose 98 mg/dL (74-106); Lipase 19 U/L (13-75); Potassium 3.2 mmol/L (3.5-5.1); Protein, Total 6.8 g/dL (6.4-8.2); Sodium Level 139 mmol/L (136-145)
[2024-03-24 19:38] VITALS: BP 128/77; PULSE 71; RESP 18; O2SAT 99
[2024-03-24 21:00] VITALS: BP 124/65; PULSE 66; RESP 16; O2SAT 98
== END 2024-03-24 21:34 | disposition home or self-care (01) ==
PROVIDERS: Emergency Provider Emergency Medicine; Visit Provider Emergency Medicine
DX: O21.9 Vomiting of pregnancy, unspecified (principal); O99.891 Other specified diseases and conditions complicating pregnancy; R19.7 Diarrhea, unspecified; Z3A.17 17 weeks gestation of pregnancy
CPT/HCPCS: 80053; 83690; 85025; 87177; 87209; 93005; 96361; 96374; 99283; J2405

== ENCOUNTER 2024-06-15 19:56 | Outpatient (CLI) | payer OTHER, SELFPAY ==
[2024-06-15] VITALS (8 sets, daily range): BP systolic 116–136; BP diastolic 75–89; PULSE 70–108; RESP 16–20; TEMP 36.6–37.7; O2SAT 96–100
--- NOTE | 2024-06-15 20:00 | ED.RN ---
Talked to OB charge about pt. Instructed to have pt be seen up here first for SOB and to call them if baby needs monitored or mom taken to OB. KADEN Thomas notified.
--- NOTE | 2024-06-15 21:09 | EKG12_ITS ---
Test Reason : Blood Pressure : */* mmHG Vent. Rate : 85 BPM Atrial Rate : 85 BPM P-R Int : 138 ms QRS Dur : 70 ms QT Int : 344 ms P-R-T Axes : 41 57 38 degrees QTcB Int : 409 ms Normal sinus rhythm Normal ECG Confirmed by Rubio Paulino ([id number]), acquisition editor SHANTANU HARRIS ([id number]) on 06/16/2024 1:15:49 PM Referred By: Georgia Lino Confirmed By: Rubio Paulino
--- NOTE | 2024-06-15 21:11 | CT_ITS ---
PROCEDURE: CTA CHEST W/WO CONTRAST 06/15/2024 REASON FOR EXAM: Shortness of breath, pulmonary embolism TECHNIQUE: CTA imaging of the chest, abdomen and pelvis without and with intravenous contrast. Coronal and Sagittal reconstruction series were provided. 3D, 3D post processing, 3D reconstructions, Maximum intensity projection (MIPs) Volume rendering and Shaded surface rendering was provided. One or more dose reduction techniques were used (e.g., Automated exposure control, adjustment of the mA and/or kV according to patient size, use of iterative reconstruction technique). COMPARISON: None FINDINGS: Heart size is within normal limits. No significant pericardial effusion or coronary artery calcifications. Normal caliber thoracic aorta without gross dissection. Normal caliber pulmonary arteries without filling defects. Somewhat limited evaluation of the peripheral pulmonary arteries due to motion artifact. No suspicious adenopathy. Partially visualized mass in the upper abdomen measuring 10.1 x 12.8 cm in axial dimensions width ovoid fluid centrally and peripheral vascularity. Central airways are patent. No acute infiltrates, pleural effusion or pneumothorax. No pulmonary mass. Osseous structures are intact. CT/CTA Chest W/WO Contrast IMPRESSION: 1. No acute thoracic process. 2. Partially visualized large peripherally enhancing mass with central fluid de nsity in the upper abdomen. Recommend further evaluation with CT abdomen pelvis. Reading Location: [facility]
--- NOTE | 2024-06-15 21:13 | EDS_ITS ---
HPI History of Present Illness Chief Complaint: Shortness of Breath Narrative Narrative: Chief complaint and HPI: 24-year-old female who is G1, P0 and 29 weeks who follows with [facility] [place] [facility] presents for evaluation of shortness of breath and abdominal cramping. Patient states she received RhoGAM shot on Sunday given that she is O-. She states since then she has had increased shortness of breath and intermittent abdominal/pelvic cramping. She denies any vaginal bleeding or discharge. Shortness of breath is worse with exertion and walking. She states that she attempted to call the [facility] but did not get a return call therefore she presented to the emergency department. She denies any fever, chills, URI symptoms, cough, chest pain, nausea, vomiting, dysuria, hematuria, constipation, diarrhea. Patient does endorse good movement. Review of systems: See HPI Medications: As listed on the chart Allergies: As listed on the chart PFSH: Per chart Vital signs: As listed on the chart. Reviewed. Physical exam: Gen: A&O x3, NAD Head: Normocephalic, atraumatic Eyes: No sclera icterus, conjunctiva clear ENT: Moist mucous membranes Neck: Trachea midline, No JVD CV: RRR with intermittent tachycardia, no murmurs, no peripheral edema Resp: Lungs CTA BL, no w/r/c GI: Abd soft, gravid, non-tender, no r/r/g : No CVA tenderness Musc: Full ROM, no deformity Skin: Warm, dry Neuro: Alert, oriented, grossly intact, sensation intact Psych: Cooperative, appropriate mood and affect [facility] Medical History Physical exam, pre-employment Palpitations Chest pain PVCs (premature ventricular contractions) Cephalgia Contact with and (suspected) exposure to other viral communicable diseases Strain of right knee Home Medications ?Medication ?Instructions ?Recorded ?Last Taken ?Type acetaminophen 325 mg tablet 325 mg PO ONCE PRN fever o r pain 12/08/21 Unknown History (Tylenol) bisoprolol fumarate 5 mg tablet 5 mg PO DAILY #30 tabs 08/10/23 Unknown Rx fexofenadine 180 mg tablet 180 mg PO DAILY PRN 4 Unknown History (Raquel Allergy) fluticasone propionate 50 2 spray intranasal QDAY #16 grams 11/07/24 Unknown Rx mcg/actuation nasal spray,suspension (Flonase Allergy Relief) ondansetron 4 mg disintegrating 4 mg PO Q8H PRN PRN Na usea #10 tabs 03/24/24 Unknown Rx tablet Allergy/AdvReac Type Severity Reaction Status Date / Time lactose Allergy Mild Unknown Verified 06/16/24 00:00 adhesive (adhesives) AdvReac Severe Rash Verified 06/16/24 00:00 Family History Grandmother Heart disease Parkinsons Cancer Grandfather Cancer Surgical History Hx of arthroscopy of right knee Social History (Updated 06/15/24 @ 21:00 by Haylee Gold) household members: spouse housing: house Smoking Status: Never smoker alcohol intake: never substance use type: does not use caffeine: Yes EXAM Physical Exam Const Vital Signs: 06/15/24 19:56 06/15/24 20:59 06/15/24 20:59 Temperature 97.9 F Temperature Source Oral Pulse Rate 100 70 Respiratory Rate 20 H 18 Respiratory Effort Normal Non-Labored Respiratory Depth Normal Respiratory Pattern Normal Blood Pressure 136/83 H 128/78 H Blood Pressure Mean 100 94 BP Systolic BP Diastolic Pulse Ox 98 98 Oxygen Delivery Method Room Air Room Air 06/15/24 21:00 06/15/24 22:00 06/15/24 22:53 Temperature 98 F Temperature Source Pulse Rate 89 107 H 100 Respiratory Rate 17 18 18 Respiratory Effort Respiratory Depth Respiratory Pattern Blood Pressure 117/89 H 116/75 123/83 H Blood Pressure Mean 98 88 96 BP Systolic BP Diastolic Pulse Ox 98 98 99 Oxygen Delivery Method 06/15/24 23:24 06/15/24 23:24 06/15/24 23:25 Temperature Temperature Source Temporal Pulse Rate 100 Respiratory Rate Respiratory Effort Respiratory Depth Respiratory Pattern Blood Pressure Blood Pressure Mean BP Systolic BP Diastolic Pulse Ox 96 Oxygen Delivery Method 06/15/24 23:25 06/15/24 23:25 06/15/24 23:25 Temperature Temperature Source Pulse Rate 108 H Respiratory Rate 16 Respiratory Effort Respiratory Depth Respiratory Pattern Blood Pressure 128/86 H Blood Pressure Mean BP Systolic 128 BP Diastolic 86 Pulse Ox Oxygen Delivery Method 06/15/24 23:25 06/15/24 23:25 06/15/24 23:26 Temperature 99.9 F H Temperature Source Pulse Rate Respiratory Rate Respiratory Effort Respiratory Depth Respiratory Pattern Blood Pressure 128/86 H Blood Pressure Mean BP Systolic 128 BP Diastolic 86 Pulse Ox 97 Oxygen Delivery Method 06/15/24 23:26 Temperature Temperature Source Pulse Rate 107 H Respiratory Rate Respiratory Effort Respiratory Depth Respiratory Pattern Blood Pressure Blood Pressure Mean BP Systolic BP Diastolic Pulse Ox Oxygen Delivery Method MDM MDM MDM Narrative Medical decision making narrative: 24-year-old female who is G1, P0 and 29 weeks who follows with [facility] [place] [facility] presents for evaluation of shortness of breath and abdominal cramping. Prior to patient being placed in a room, triage called OB charge they recommend evaluation in our emergency department prior to transfer down to them for the intermittent abdominal cramping. Differential diagnosis includes but is not limited to symptomatic , PE, eclampsia, UTI, other intra-abdominal pathology. Suspect less likely viral illness or pneumonia given patient's symptoms. heart rate was obtained and within normal limits. I do not have ultrasound available in our emergency department at this time. I do not think an emergent ultrasound is needed as I suspect that her intermittent abdominal pain/pelvic cramping is likely secondary to her . She is nontender on physical exam. She is not in any acute distress. Given that I do not have ultrasound available, I did speak with OB charge, they are comfortable with evaluating her after I clear her and okay for no ultrasound. NS bolus ordered. CBC shows baseline leukocytosis of 15.1, likely secondary to . No anemia. Platelets unremarkable. CMP with hypokalemia of 3.2. P.o. potassium ordered. No PRINCESS. No transaminitis. LDH not elevated. Lipase unremarkable. Troponin unremarkable. BNP unremarkable. UA is positive for protein but otherwise is negative for bacteria or UTI. At this point in time, no clear etiology CTA chest is negative for acute thoracic process. Read states there is a partially visualized large peripheral enhancing mass with central fluid density in the right upper abdomen. I looked at this imaging, this is the patient's uterus. I did call the radiologist Dr. Tran and he confirmed that this is the uterus. To explain patient's shortness of breath, I suspect that this is secondary to . She is medically cleared for OB triage. I spoke with the on-call physician Dr. Lino. She is okay with transfer to OB triage after being updated on the patient and results. Patient updated on all the results and the plan and confirmed understanding. Impression: 1. Shortness of breath 2. Episodic abdominal/pelvic cramping 3. 29 weeks Lab Data Labs: Laboratory Results - last 24 hr 06/15/24 06/15/24 20:07 21:24 WBC 15.1 H RBC 4.17 L Hgb 12.9 Hct 38.5 MCV 92.3 MCH 30.9 MCHC 33.5 RDW Std Deviation 45.6 H RDW Coeff of Karrie 13.6 Plt Count 264 MPV 10.2 Immature Gran % (Auto) 1.300 H Neut % (Auto) 65.4 Lymph % (Auto) 21.7 [place] % (Auto) 6.4 Eos % (Auto) 4.9 Baso % (Auto) 0.3 Absolute Neuts (auto) 9.9 H Absolute Lymphs (auto) 3.28 Nucleated RBC % 0 Sodium 137 Potassium 3.2 L Chloride 104 Carbon Dioxide 20.9 L Anion Gap 12 BUN 4 Creatinine 0.88 Estim Creat Clear Calc 91.07 Est GFR (MDRD) Non-Af 95 BUN/Creatinine Ratio 5.0 L Glucose 86 Calcium 9.0 Total Bilirubin 0.20 AST 14 ALT 8 Alkaline Phosphatase 84 Lactate Dehydrogenase 169 Troponin T High Sens < 6 NT pro BNP II 59 Total Protein 6.4 Albumin 3.8 Globulin 2.6 Albumin/Globulin Ratio 1.5 Lipase 26 Urine Color Yellow Urine Clarity Sl. Cloudy Urine pH 7.0 Ur Specific [place] 1.005 Urine Protein 15 H Urine Glucose (UA) Normal Urine Ketones Negative Urine Occult Blood Negative Urine Nitrite Negative Urine Bilirubin Negative Urine Urobilinogen Normal Ur Leukocyte Esterase Negative Urine RBC 0 SEEN Urine WBC 0 SEEN Ur Squamous Epith Cells 0-5 SEEN Urine Bacteria 0 SEEN Urine Mucus 0 SEEN Radiography Diagnostic Testing: Clinical Impression(s) from Imaging Studies Chest CTA 06/15/24 21:11 IMPRESSION: 1. No acute thoracic process. 2. Partially visualized large peripherally enhancing mass with central fluid density in the upper abdomen. Recommend further evaluation with CT abdomen pelvis. Reading Location: [facility] Discharge Plan Admission Reason For Visit: CRAMPING Attending Provider: Georgia Lino Primary Care Provider: Care Physician,No Primary Discharge Date/Time: 06/16/24 00:00 Instructions Patient Instructions: Oswald Hoffmann, OB Triage: Return to Hospital or Notify Physician if you Experience: Additional Instructions / Restrictions: No reason to describe your shortness of breath. You need to go immediately to the OB ED to be evaluated for your abdominal pain. I did inform them that you were coming. Follow-up with your PCP as well as [facility]. If you do not have a PCP follow-up with the 1 provided above. Discharge Orders/Prescriptions Prescriptions: No Action acetaminophen [Tylenol] 325 mg tablet 325 mg PO ONCE PRN (Reason: fever or pain) fexofenadine [Raquel Allergy] 180 mg tablet 180 mg PO DAILY PRN bisoprolol fumarate 5 mg tablet 5 mg PO DAILY Qty: 30 5RF fluticasone propionate [Flonase Allergy Relief] 50 mcg/actuation spray,suspension 2 spray intranasal QDAY Qty: 16 0RF Rx Instructions: administer into each nostril ondansetron 4 mg tablet,disintegrating 4 mg PO Q8H PRN PRN (Reason: Nausea) Qty: 10 0RF Referrals / Follow Up: Georgia Lino MD [Med Staff - Active Staff] - 3-5 Days Paulo Singh MD [Med Staff - Active Staff] - 3-5 Days Care Physician,No Primary [Primary Care Provider] - Disposition Patient Disposition: Home, Self Care
[2024-06-15] MEDS: 0.9% Normal Saline (1000mL) 1,000 ML 1000 ML IV (21:21)
[2024-06-15 21:27] LABS: Bacteria 0 SEEN /hpf (None Seen); Mucous, Urine 0 SEEN /hpf (<or=2+); Red Blood Cells-Urine 0 SEEN /hpf (0-5); White Blood Cells 0 SEEN /hpf (0-5)
[2024-06-15 21:27] LABS: Absolute Lymphocyte Count 3.28 X10^3/uL (0.83-4.51); Absolute Neutrophil Count 9.9 X10^3/uL (2.0-7.7); Basophil# 0.05 X10^3/uL; Basophil% 0.3 % (0-1); Eosinophil# 0.74 X10^3/uL; Eosinophils% 4.9 % (0-5); Hematocrit 38.5 % (37-47); Hemoglobin 12.9 g/dL (12.0-15.0); Lymphocyte # 3.28 X10^3/ul (0.83-4.51); Lymphocyte % 21.7 % (19-41); Mean Corp Hgb Conc 33.5 g/dL (32-36); Mean Corpuscular Hgb 30.9 pg (27.0-32.0); Mean Corpuscular Volume 92.3 fL (81-99); Mean Platelet Vol. 10.2 fl (6.2-12.0); Monocyte# 0.97 X10^3/uL; Monocyte% 6.4 % (0-10); NRBC Flagged by Analyzer 0 % (0-5); Neutrophil % 65.4 % (47-70); Platelet Count 264 K/mm3 (150-450); RBC Distribution Width CV 13.6 % (11.6-14.6); RBC Distribution Width SD 45.6 fl (35.1-43.9); Red Blood Count 4.17 M/mm3 (4.2-5.4); White Blood Count 15.1 K/mm3 (4.4-11.0)
[2024-06-15 21:43] LABS: Color, Urine Yellow (Yellow); Glucose, Dipstick Normal (Normal); Ketone-Dipstick Negative (Negative); Leukocyte Esterase-Dipstick Negative /ul (Negative); Nitrite-Dipstick Negative (Negative); Occult Blood-Urine Negative /ul (Negative); Protein-Dipstick 15 mg/dl (Negative); Specific Gravity, Urine 1.005 (1.002-1.030); Urine Bilirubin Dipstick Negative (Negative); Urine Clarity Sl. Cloudy (Clear); Urine Urobilinogen Normal (Normal)
[2024-06-15 21:50] LABS: ALB/GLOB Ratio 1.5 RATIO (0.9-2.4); AST(SGOT) 14 U/L (<=31); Alanine Aminotransfer ALT/SGPT 8 U/L (<=34); Albumin, Serum 3.8 g/dL (3.5-5.0); Alkaline Phosphatase 84 U/L (35-104); Anion Gap 12 (5-15); BUN 4 mg/dL (4-19); Carbon Dioxide 20.9 mmol/L (21.0-32.0); Chloride 104 mmol/L (98-108); Creatinine, Serum 0.88 mg/dL (0.70-1.20); EST Glomerular Filtration Rate 95 (>60); Estimated Creatinine Clearance 91.07 ml/min (50-250); Globulin 2.6 g/dL (2.2-4.2); Glucose 86 mg/dL (70-99); LDH 169 U/L (84-246); Lipase 26 U/L (13-75); Potassium 3.2 mmol/L (3.3-5.1); Pro- Brain NATRIURETIC PEPTIDE 59 pg/mL (<=450); Protein, Total 6.4 g/dL (5.9-8.4); Sodium Level 137 mmol/L (133-145)
[2024-06-15] MEDS: Potassium Chloride Oral Soln 20 MEQ/15 ML UDC 40 MEQ PO (22:03)
[2024-06-15 22:04] LABS: Troponin T High Sensitivity < 6 ng/L (<=14)
[2024-06-15 22:13] LABS: Squamous Epithelial Cells - UA 0-5 SEEN /hpf (5-10)
--- NOTE | 2024-06-15 22:59 | ED.RN ---
THIS NURSE CALLED OB TO CLARIFY IF THEY WANTED PTS IV TAKEN OUT. PER [facility] NURSE WILMA THE IV IS TO BE LEFT IN LEAVING THE ED. PT IS ESCORTED TO OB BY [facility].
[2024-06-16 00:39] VITALS: BMI 29.8
--- NOTE | 2024-06-16 06:07 | OB.TRI.NOTE ---
HPI - General General Date of Admission: 06/15/24 Date of Service: 06/15/24 Chief Complaint: cramping HPI Narrative STEWART AQUINO, is a 24 F who presents uterine cramping. Seen in ED with SOB and cleared. Given fluids in the ED and K+ replaced. Cervix closed. Maternal Data Information Final JEM: 08/29/24 Gestational age: 29 PFSH PFSH Medical History Physical exam, pre-employment Palpitations Chest pain PVCs (premature ventricular contractions) Cephalgia Contact with and (suspected) exposure to other viral communicable diseases Strain of right knee Home Medications ?Medication ?Instructions ?Recorded ?Last Taken ?Type acetaminophen 325 mg tablet 325 mg PO ONCE PRN fever or pain 12/08/21 Unknown History (Tylenol) bisoprolol fumarate 5 mg tablet 5 mg PO DAILY #30 tabs 08/10/23 Unknown Rx fexofenadine 180 mg tablet 180 mg PO DAILY PRN 08/10/23 Unknown History (Raquel Allergy) fluticasone propionate 50 2 spray intranasal QDAY #16 grams 01/10/24 Unknown Rx mcg/actuation nasal spray,suspension (Flonase Allergy Relief) ondansetron 4 mg disintegrating 4 mg PO Q8H PRN PRN Nausea #10 tabs 03/24/24 Unknown Rx tablet Allergy/AdvReac Type Severity Reaction Status Date / Time lactose Allergy Mild Unknown Verified 06/16/24 00:00 adhesive (adhesives) AdvReac Severe Rash Verified 06/16/24 00:00 Family History Grandmother Heart disease Parkinsons Cancer Grandfather Cancer Surgical History Hx of arthroscopy of right knee Social History (Updated 06/15/24 @ 21:00 by Haylee Gold) household members: spouse housing: house Smoking Status: Never smoker alcohol intake: never substance use type: does not use caffeine: Yes History 1 Elective abortions Hx Para 0 Spontaneous abortions Hx # Term Pregnancies Ectopic pregnancies Hx # Pregnancies Multiple births # of living children NST FHR Rate Baby A Baseline: 150 Variability:: Moderate Accelerations:: 15 x 15 Decelerations:: None NST Reactive:: Yes FHR Rate Baby B Uterine Activity:: irritable Assessment & Plan (1) 29 weeks gestation of : (2) Cramping affecting , antepartum: PLAN: Plan Hydration and rest. PTL precautions
[2024-06-16 10:25] VITALS: BP 117/64; PULSE 96; O2SAT 100
== END 2024-06-16 | disposition home or self-care (01) ==
LOC: ED 22:55 → WPOUT 23:10 → WP 23:10
PROVIDERS: Surgery; Referring Provider Obstetrics & Gynecology; Visit Provider Obstetrics & Gynecology
DX: O99.891 Other specified diseases and conditions complicating pregnancy (principal); N94.89 Other specified conditions associated with female genital organs and menstrual cycle; O26.893 Other specified pregnancy related conditions, third trimester; R06.02 Shortness of breath; Z67.41 Type O blood, Rh negative; Z3A.29 29 weeks gestation of pregnancy
CPT/HCPCS: 96360; 59025; 59050; 71275; 80053; 81001; 83615; 83690; 83880; 84484; 85025; 93005; 99221; Q9967; G0378

== ENCOUNTER 2024-07-14 14:17 | Outpatient (CLI) | payer OTHER, SELFPAY ==
[2024-07-14] VITALS (8 sets, daily range): BP systolic 129; BP diastolic 84; PULSE 95–128; O2SAT 97–98; BMI 29.9
[2024-07-14 15:03] LABS: Mucous, Urine 0 SEEN /hpf (<or=2+); Red Blood Cells-Urine 0 SEEN /hpf (0-5)
[2024-07-14 15:05] LABS: Color, Urine Yellow (Yellow); Glucose, Dipstick Normal (Normal); Ketone-Dipstick Negative (Negative); Leukocyte Esterase-Dipstick 25 /ul (Negative); Nitrite-Dipstick Negative (Negative); Occult Blood-Urine 10 /ul (Negative); Protein-Dipstick 30 mg/dl (Negative); Specific Gravity, Urine 1.015 (1.002-1.030); Urine Bilirubin Dipstick Negative (Negative); Urine Clarity Sl. Cloudy (Clear); Urine Urobilinogen 4 mg/dl (Normal)
[2024-07-14 15:16] LABS: Amorphous Sediment 2+; Bacteria 2+ /hpf (None Seen); Squamous Epithelial Cells - UA 0-5 SEEN /hpf (5-10)
[2024-07-14 15:17] LABS: White Blood Cells 0-5 SEEN /hpf (0-5)
[2024-07-14] MEDS: Nitrofurantoin Macrocrystals 100 MG Capsule PO (15:37)
--- NOTE | 2024-07-14 16:30 | OB.TRI.NOTE ---
HPI - General General Date of Admission: 07/14/24 Date of Service: 07/14/24 Chief Complaint: ctx's HPI Narrative STEWART AQUINO, is a 24 F who presents from the office with ctx's. Improved after PO hydration. Spotting yesterday and no bleeding since. No LOF. No urinary symptoms of changes in bowel movements. [facility] Medical History Physical exam, pre-employment Palpitations Chest pain PVCs (premature ventricular contractions) Cephalgia Contact with and (suspected) exposure to other viral communicable diseases Strain of right knee Home Medications ?Medication ?Instructions ?Recorded ?Last Taken ?Type acetaminophen 325 mg tablet 325 mg PO ONCE PRN fever or pain 12/08/21 Unknown History (Tylenol) ondansetron 4 mg disintegrating 4 mg PO Q8H PRN PRN Nausea #10 tabs 03/24/24 Unknown Rx tablet aspirin 81 mg chewable tablet 1 tab PO DAILY 07/14/24 07/13/24 21:00 History (Children's Aspirin) 1 TAB metoprolol succinate 25 mg 25 mg PO DAILY 07/14/24 07/13/24 21:00 History tablet,extended release 24 hr 25 mg nitrofurantoin 100 mg PO BID 5 days #10 caps 07/14/24 Unknown Rx monohydrate/macrocrystals 100 mg capsule (Macrobid) vit no.95-ferrous 1 tab PO DAILY 07/14/24 07/13/24 21:00 History fumarate 28 mg-folic acid 800 mcg 1 TAB tablet () Allergy/AdvReac Type Severity Reaction Status Date / Time lactose Allergy Mild Unknown Verified 07/14/24 14:44 adhesive (adhesives) AdvReac Severe Rash Verified 07/14/24 14:44 Family History Grandmother Heart disease Parkinsons Cancer Grandfather Cancer Surgical History Hx of arthroscopy of right knee Social History (Updated 06/15/24 @ 21:00 by Haylee Gold) household members: spouse housing: house Smoking Status: Never smoker alcohol intake: never substance use type: does not use caffeine: Yes History 1 Elective abortions Hx Para 0 Spontaneous abortions Hx # Term Pregnancies Ectopic pregnancies Hx # Pregnancies Multiple births # of living children Physical Exam Const alert and no apparent distress Constitutional Narrative: Patient has been resting and on her phone while on L&D. She is very comfortable appearing General Appearance: comfortable GI soft to palpation and non-tender Narrative: Cervix closed and thick NST FHR Rate Baby A Baseline: 150 Variability:: Moderate Accelerations:: 15 x 15 Decelerations:: None NST Reactive:: Yes Uterine Activity:: ctx q 2 Assessment & Plan (1) 33 weeks gestation of : (2) Uterine contractions: PLAN: Patient is very comfortable appearing and abdomen palpates soft. Urine with evidence of infection. Patient's symptoms have improved with PO hydration. Macrobid started, and rx sent for suspected UTI. Urine cx sent. Reviewed PTL precautions. Cervix remains closed and thick over several hours. D/c home.
== END 2024-07-14 16:38 | disposition home or self-care (01) ==
LOC: WPOUT 14:29 → WP 14:29
PROVIDERS: Referring Provider Advanced Practice Midwife; Visit Provider Advanced Practice Midwife
DX: O47.03 False labor before 37 completed weeks of gestation, third trimester (principal); Z3A.33 33 weeks gestation of pregnancy
CPT/HCPCS: 59025; 59050; 81001; 87086; 87088; 99221; G0378

== ENCOUNTER 2024-07-15 08:50 | Outpatient (CLI) | payer OTHER, SELFPAY ==
[2024-07-15 09:04] VITALS: BP 124/76; PULSE 131; TEMP 36.1; O2SAT 97
[2024-07-15 09:09] VITALS: PULSE 116; O2SAT 97
[2024-07-15 10:10] VITALS: PULSE 95; O2SAT 98
--- NOTE | 2024-07-17 08:57 | OB.TRI.NOTE ---
HPI - General General Date of Admission: 07/15/24 Date of Service: 07/15/24 Chief Complaint: abd pain HPI Narrative STEWART AQUINO, is a 24 F who presents c/o abdominal pain, contractions Maternal Data Information Final JEM: 08/29/24 Gestational age: 33 4/7 PFSH [facility] Medical History Physical exam, pre-employment Palpitations Chest pain PVCs (premature ventricular contractions) Cephalgia Contact with and (suspected) exposure to other viral communicable diseases Strain of right knee Home Medications ?Medication ?Instructions ?Recorded ?Last Taken ?Type acetaminophen 325 mg tablet 325 mg PO ONCE PRN fever or pain 12/08/21 Unknown History (Tylenol) ondansetron 4 mg disintegrating 4 mg PO Q8H PRN PRN Nausea #10 tabs 03/24/24 Unknown Rx tablet aspirin 81 mg chewable tablet 1 tab PO DAILY 07/14/24 07/14/24 21:00 History (Children's Aspirin) 1 TAB metoprolol succinate 25 mg 25 mg PO DAILY 07/14/24 07/14/24 21:00 History tablet,extended release 24 hr 25 mg nitrofurantoin 100 mg PO BID 5 days #10 caps 07/14/24 07/15/24 07:00 Rx monohydrate/macrocrystals 100 mg 100 mg capsule (Macrobid) vit no.95-ferrous 1 tab PO DAILY 07/14/24 07/14/24 21:00 History fumarate 28 mg-folic acid 800 mcg 1 TAB tablet () Allergy/AdvReac Type Severity Reaction Status Date / Time lactose Allergy Mild Unknown Verified 07/15/24 09:01 adhesive (adhesives) AdvReac Severe Rash Verified 07/15/24 09:01 Family History Grandmother Heart disease Parkinsons Cancer Grandfather Cancer Surgical History Hx of arthroscopy of right knee Social History (Updated 06/15/24 @ 21:00 by Haylee Gold) household members: spouse housing: house Smoking Status: Never smoker alcohol intake: never substance use type: does not use caffeine: Yes History 1 Elective abortions Hx Para 0 Spontaneous abortions Hx # Term Pregnancies Ectopic pregnancies Hx # Pregnancies Multiple births # of living children NST FHR Rate Baby A Baseline: 140 Variability:: Moderate Accelerations:: 15 x 15 Decelerations:: None NST Reactive:: Yes Uterine Activity:: irritability, no regular ctxs Assessment & Plan (1) Uterine contractions: (2) 33 weeks gestation of : (3) Supervision of high risk in third trimester: (4) Threatened labor, antepartum:
== END 2024-07-15 10:37 | disposition home or self-care (01) ==
LOC: WPOUT 08:56 → WP 08:56
PROVIDERS: Referring Provider Obstetrics & Gynecology; Visit Provider Obstetrics & Gynecology
DX: O47.03 False labor before 37 completed weeks of gestation, third trimester (principal); Z3A.33 33 weeks gestation of pregnancy; O09.93 Supervision of high risk pregnancy, unspecified, third trimester
CPT/HCPCS: 59025; 59050; 99221; G0378

== ENCOUNTER 2024-08-07 16:31 | Outpatient (CLI) | payer OTHER, SELFPAY ==
[2024-08-07 16:46] VITALS: RESP 16; TEMP 37.1
[2024-08-07 16:50] VITALS: BMI 31.1
[2024-08-07 16:51] VITALS: BP 130/90; PULSE 120
--- NOTE | 2024-08-07 19:15 | OB.TRI.NOTE ---
HPI - General General Date of Admission: 08/07/24 Date of Service: 08/07/24 Chief Complaint: fall HPI Narrative STEWART AQUINO, is a 24 F who presents after falling into her couch and hitting her upper abd. Good movement No bleeding. Does not feel contractions. RH negative. Had rhogam at 36 weeks. Had an odd reaction after rhogam at 28 week.Chest pressure and nausea. Occurred again this visit with rhogam. EKG normal sinus. SpO2 98% Maternal Data Information Final JEM: 08/29/24 Gestational age: 36+6 PFSH PFSH Medical History Physical exam, pre-employment Palpitations Chest pain PVCs (premature ventricular contractions) Cephalgia Contact with and (suspected) exposure to other viral communicable diseases Strain of right knee Home Medications ?Medication ?Instructions ?Recorded ?Last Taken ?Type acetaminophen 325 mg tablet 325 mg PO ONCE PRN fever or pain 12/08/21 Unknown History (Tylenol) ondansetron 4 mg disintegrating 4 mg PO Q8H PRN PRN Nausea #10 tabs 03/24/24 Unknown Rx tablet aspirin 81 mg chewable tablet 1 tab PO DAILY 07/14/24 08/06/24 History (Children's Aspirin) metoprolol succinate 25 mg 25 mg PO DAILY 07/14/24 08/06/24 History tablet,extended release 24 hr vit no.95-ferrous 1 tab PO DAILY 07/14/24 08/06/24 History fumarate 28 mg-folic acid 800 mcg tablet () pantoprazole 20 mg tablet,delayed 20 mg PO DAILY 08/07/24 08/07/24 History release (Protonix) sertraline 25 mg tablet (Zoloft) 25 mg PO DAILY 08/07/24 08/06/24 History Allergy/AdvReac Type Severity Reaction Status Date / Time lactose Allergy Mild Unknown Verified 08/07/24 16:44 adhesive (adhesives) AdvReac Severe Rash Verified 08/07/24 16:44 Family History Grandmother Heart disease Parkinsons Cancer Grandfather Cancer Surgical History Hx of arthroscopy of right knee Social History (Updated 06/15/24 @ 21:00 by Haylee Gold) household members: spouse housing: house Smoking Status: Never smoker alcohol intake: never substance use type: does not use caffeine: Yes History 1 Elective abortions Hx Para 0 Spontaneous abortions Hx # Term Pregnancies Ectopic pregnancies Hx # Pregnancies Multiple births # of living children NST FHR Rate Baby A Baseline: 150 Variability:: Moderate Accelerations:: 15 x 15 Decelerations:: None NST Reactive:: Yes Uterine Activity:: irregular Assessment & Plan (1) 36 weeks gestation of : (2) Abdominal trauma: QUALIFIERS: Encounter type: initial encounter Qualified Code(s): S39.91XA - Unspecified injury of abdomen, initial encounter (3) Rh negative state in antepartum period: PLAN: Plan Prolonged monitoring. Rhogam given
[2024-08-07 19:45] VITALS: BP 128/78; PULSE 104; RESP 15; TEMP 37.1
[2024-08-07] MEDS: Ondansetron ODT 4 MG Tablet PO (19:54)
[2024-08-07] MEDS: Rho(D) Immune Globulin 300 MCG (1500 Unit) Syringe IV (20:08)
[2024-08-07 20:39] VITALS: BP 126/85; PULSE 93; RESP 16
[2024-08-07 20:42] VITALS: PULSE 80; O2SAT 99
--- NOTE | 2024-08-07 20:45 | EKG12_ITS ---
Test Reason : CHEST PAIN Blood Pressure : */* mmHG Vent. Rate : 85 BPM Atrial Rate : 85 BPM P-R Int : 134 ms QRS Dur : 68 ms QT Int : 354 ms P-R-T Axes : 17 49 27 degrees QTcB Int : 421 ms Normal sinus rhythm Nonspecific T wave abnormality Abnormal ECG When compared with ECG of 15-Jun-2024 21:25, No significant change was found Confirmed by MARKO SANTIAGO, JOSE M ([id number]), art editor SHANTANU HARRIS ([id number]) on 08/11/2024 6:56:33 AM Referred By: Georgia Lino Confirmed By: JOSE M ZHU MD
--- OUTSIDE RECORDS SUMMARY | 2024-08-07 22:10 | XMS RPT_ITS | CCD ---
Author Organization [facility] Care Team Providers Care Speed Belt Sander Tender Name Role Phone Dr. Kayleen Mckay Primary Care Provider Dr. Kayleen Mckay Referring Provider ARDEN Campos Attending Provider ARDEN Ruiz Attending Provider Dr. Simeon Delaney Attending Provider Dr. Kayleen Mckay Primary Care Provider Dr. Kayleen Mckay Referring Provider Dr. Kayleen Mckay Primary Care Provider Dr. Kayleen Mckay Referring Provider ARDEN Campos Attending Provider ARDEN Garcia Attending Provider ARDEN Ruiz Attending Provider Dr. Simeon Delaney Attending Provider Dr. Kayleen Mckay Primary Care Provider Dr. Kayleen Mckay Referring Provider ARDEN Garcia Attending Provider ARDEN Aguilar Attending Provider Dr. Kayleen Mckay Primary Care Provider Dr. Kayleen Mckay Referring Provider ARDEN Campos Attending Provider Dr. Simeon Delaney Attending Provider Kayleen Mckay MD Primary Care Provider REFERRED, SELF Referring Unavailable MINERVA HESTER Attending Unavailable KAYLEEN MCKAY Primary Care Unavailable EDITH PABLO Attending Unavailable KAYLEEN MCKAY Primary Care Unavailable EDITH PABLO Referring Unavailable EDITH PABLO Attending Unavailable KAYLEEN MCKAY Referring Unavailable KAYLEEN MCKAY Primary Care Unavailable Dr. Kayleen Mckay Primary Care Provider Dr. Kayleen Mckay Referring Provider ARDEN Campos Attending Provider ARDEN Garcia Attending Provider Kayleen Mckay MD Primary Care Provider Carson SANTIAGO, Jay Jones Unavailable Edith Pablo MD Unavailable Care Physician, No Primary Primary Care Provider Unavailable Lazara ALBERTS, Dr. Harrington Attending Provider Dr. Len Haile DO Emergency Provider [phone] Violeta ALBERTS, Dr. David Emergency Provider Holland SANTIAGO, Dr. Ho Attending Provider Dr. Georgia Lino MD Referring Provider Nena Méndez CNM Attending Provider Nena Méndez CNM Referring Provider Cristian SANTIAGO, Dr. Crook Attending Provider Cristian SANTIAGO, Dr. Crook Referring Provider KAYLEEN MCKAY Primary Care Unavailable JARETT WAITE Admitting Unavailable JARETT WAITE Attending Unavailable KAYLEEN MCKAY Primary Care Unavailable Rubio Paulino Attending Unavailable Rubio Paulino Referring Unavailable Care Physician, No Primary Primary Care Unava ilable Kayleen Mckay Primary Care Unavailable Kayleen Mckay Referring Unavailable Nilton Wagner Attending Unavailable Rick Campos Attending Unavailable Care Physician, No Primary Primary Care Unava ilable Care Physician, No Primary Referring Unava ilable Nena Méndez Attending Unavailable Nena Méndez Referring Unavailable Care Physician, No Primary Primary Care Unava ilable Yobany Romero Attending Unavailable Yobany Romero Referring Unavailable Care Physician, No Primary Primary Care Unava ilable Rubio Paulino Attending Unavailable Rubio Paulino Referring Unavailable Care Physician, No Primary Primary Care Unava ilable Care Physician, No Primary Primary Care Unava ilable Len Haile Attending Unavailable Antoine Dodson Attending Unavailable Mckay, Kayleen Primary Care Unavailable Georgia Lino Attending Unavailable Georgia Lino Referring Unavailable Care Physician, No Primary Primary Care Unava ilable Mckay, Kayleen Primary Care Unavailable Mckay, Kayleen Referring Unavailable Rubio Paulino Attending Unavailable Mckay, Kayleen Referring Unavailable Nilton Wagner Attending Unavailable Mckay, Kayleen Primary Care Unavailable NENA MÉNDEZ Attending Unavailable MCKAY, KAYLEEN ЕЛЕНА Primary Care Unavailable MCKAY, KAYLEEN ЕЛЕНА Primary Care Unavailable MARTHA SANTAMARIA Referring Unavailable MCKAY, KAYLEEN ЕЛЕНА Primary Care Unavailable GEORGIA LINO Attending Unavailable MCKAY, KAYLEEN ЕЛЕНА Primary Care Unavailable GEORGIA LINO Attending Unavailable MCKAY, KAYLEEN ЕЛЕНА Primary Care Unavailable ANGIE OCASIO Attending Unavailable MCKAY, KAYLEEN ЕЛЕНА Primary Care Unavailable MILLY SINGH Attending Unavailable MCKAY, KAYLEEN ЕЛЕНА Primary Care Unavailable NINFA, ANGIE Referring Unavailable MCKAY, KAYLEEN ЕЛЕНА Primary Care Unavailable ALLY SANTAMARIAICA Referring Unavailable MCKAY, KAYLEEN ЕЛЕНА Primary Care Unavailable ALLY SANTAMARIAICA Attending Unavailable MCKAY, KAYLEEN ЕЛЕНА Primary Care Unavailable YOBANY ROMERO Attending Unavailable MCKAY, KAYLEEN ЕЛЕНА Primary Care Unavailable ROSALIO MARTHA Referring Unavailable ALLY SANTAMARIAICA Attending Unavailable MCKAY, KAYLEEN ЕЛЕНА Primary Care Unavailable NINFA, ANGIE Referring Unavailable ALLY SANTAMARIAICA Attending Unavailable MCKAY, KAYLEEN ЕЛЕНА Primary Care Unavailable NINFA, ANGIE Referring Unavailable MCKAY, KAYLEEN ЕЛЕНА Primary Care Unavailable MILLY SINGH Attending Unavailable MCKAY, KAYLEEN ЕЛЕНА Primary Care Unavailable NINFA, ANGIE Referring Unavailable MCKAY, KAYLEEN ЕЛЕНА Primary Care Unavailable MCKAY, KAYLEEN ЕЛЕНА Primary Care Unavailable CONY CARDONA Referring Unavailable MCKAY, KAYLEEN ЕЛЕНА Primary Care Unavailable GEORGIA LINO Attending Unavailable MCKAY, KAYLEEN ЕЛЕНА Primary Care Unavailable JAY BYRD Attending Unavailable MCKAY, KAYLEEN ЕЛЕНА Primary Care Unavailable JAY BYRD Referring Unavailable MCKAY, KAYLEEN ЕЛЕНА Primary Care Unavailable MILLY SINGH Attending Unavailable MCKAY, KAYLEEN ЕЛЕНА Primary Care Unavailable GEORGIA LINO Attending Unavailable MCKAY, KAYLEEN ЕЛЕНА Primary Care Unavailable EDITH PABLO Referring Unavailable JAY BYRD Attending Unavailable MCKAY, KAYLEEN ЕЛЕНА Primary Care Unavailable JAY BYRD Referring Unavailable MCKAY, KAYLEEN ЕЛЕНА Primary Care Unavailable JAY BYRD Referring Unavailable KAYLEEN MCKAY Primary Care Unavailable JAY BYRD Referring Unavailable KAYLEEN MCKAY Primary Care Unavailable GEORGIA LINO Attending Unavailable KAYLEEN MCKAY Primary Care Unavailable NENA MÉNDEZ Attending Unavailable KAYLEEN MCKAY Primary Care Unavailable GEORGIA LINO Attending Unavailable KAYLEEN MCKAY Primary Care Unavailable SHARA MARTINEZ Attending Unavailable Allergies Allergy Classification Reported Allergen(s) Allergy Type Date of Onset Reaction(s) Facility (20 sources) Lactose; Translations: [LACTOSE] Drug Allergy 2 GI Upset [facility] (1 source) MILK-RELATED COMPOUNDS; Translations: [MILK-RELATED COMPOUNDS] Propensity to adverse reactions to drug (disorder) [facility] (20 sources) Adhesive agent; Translations: [ADHESIVE] Drug Allergy 4 [facility] Comment on above: holter patches (1 source) Adhesive agent Drug allergy (disorder) 5 [facility] Repository (1 source) Lactose Drug Allergy 5 [facility] Medications Current Medications Medication Drug Class(es) Dates Sig (Normalized) Sig (Original) acetaminophen 325 mg oral tablet (10 sources) Start: 12-08-2021 take 1 tablet by mouth once as needed for pain Acetaminophen (Tylenol) 325 mg tablet Active 325 mg PO ONCE as needed for fever or pain December 08, 2021 12:00am aspirin 81 mg chewable tablet (20 sources) Platelet Aggregation Inhibitor, Nonsteroidal Anti-inflammatory Drug Start: 07-14-2024 take 1 tablet by mouth once daily Aspirin (Children's Aspirin) 81 mg tablet,chewable Active 1 {tbl} PO DAILY July 14, 2024 12:00am Start: 01-14-2024 take 1 tablet by lizeth th once daily aspirin, enteric coated (ECOTRIN LOW STRENGTH) 81 mg EC tablet Indications: 7 weeks gestation of (HCC) Take 1 tablet by mouth once daily. 90 tablet 3 01/14/2024 Active drospirenone / Ethinyl Estradiol (3 sources) Progestin, Estrogen Start: 02-13-2023 End: 12-24-2023 take 1 tablet by mouth once VESTURA, 28, 3-0.02 mg per tablet Take 1 tablet by mouth every afternoon. 02/13/2023 12/24/2023 Discontinued Start: 02-13-2023 take 1 tablet by mouth once VE STURA, 28, 3-0.02 mg per tablet Take 1 tablet by mouth every afternoon. 02/13/2023 Active Start: 02-13-2023 take 1 tablet by mouth once VE STURA, 28, 3-0.02 mg per tablet Take 1 tablet by mouth every afternoon. 0 02/13/2023 Active Comment on above: Take 1 tablet by lizeth th every afternoon. levocetirizine dihydrochloride 5 mg oral tablet (3 sources) Histamine-1 Receptor Antagonist Start: 08-07-19 18 End: 12-24-19 Levocetirizine 5 mg tablet Take 5 mg by mouth. 08/06/2017 12/24/2023 Discontinued Comment on above: Take 5 mg by mouth. 24 hr metoprolol succinate 25 mg extended release oral tablet (20 sources) beta-Adrenergic Reuben Start: 07-15-19 take 1 tablet by mouth once daily Metoprolol Succinate 25 mg tablet extended release 24 hr Active 25 mg PO DAILY July 14, 2024 12:00am Start: 10-22-2022 End: 08-10-2023 take 2 tablets by mouth every twenty-four hours at bedtime Metoprolol Succinate 25 mg tablet extended release 24 hr Discontinued 12.5 mg PO AT BEDTIME October 22, 2022 12:00am August 10, 2023 10:44am Start: 10-22-2022 take 12.5 mg by mouth at bedti nm Metoprolol Succinate Active 12.5 MG PO AT BEDTIME October 22, 2022 12:00am Start: 07-26-2022 take 1 tablet by lizeth th every twenty-four hours metoprolol succinate ER (TOPROL XL) 25 mg 24 hr tablet Take by mouth. 07/26/2022 Active Comment on above: Take by mouth. nitrofurantoin, macrocrystals 25 mg / nitrofurantoin, monohydrate 75 mg oral capsule (3 sources) Nitrofuran Antibacterial Start: 025 take 1 capsule by mouth twice daily at mealtime Nitrofurantoin Monohyd/M-Cryst (Macrobid) 100 mg capsule Active 100 mg PO TWICE A DAY 12 07July 14, 2024 12:00am must administer with a meal/food ondansetron 4 mg disintegrating oral tablet (20 sources) Serotonin-3 Receptor Antagonist Start: 025 take 1 tablet by mouth every eight hours as needed for nausea Ondansetron 4 mg tablet,disintegrating Active 4 mg PO EVERY 8 HOURS NEEDED as needed for Nausea March 24, 2024 1:00am Start: 02-18-2024 take 1 tablet by lizeth th every eight hours as needed ondansetron (ZOFRAN) 4 mg tablet Take 1 tablet by mouth every 8 hours as needed for nausea/vomiting. 30 tablet 2 02/18/2024 Active Start: 10-22-2022 End: 08-10-2023 Ondansetron 4 mg tablet,disi ntegrating Discontinued mg October 22, 2022 12:00am August 10, 2023 10:45am Start: 10-22-2022 Ondansetron Ac tive MG October 22, 2022 12:00am pantoprazole 20 mg delayed release oral tablet (15 sources) Proton Pump Inhibitor Start: 06-13-2024 take 1 tablet by mouth once daily pantoprazole DR (PROTONIX) 20 mg tablet Take 1 tablet by mouth once daily. 90 tablet 06/13/2024 Active Start: 06-04-2024 End: 06-04-2024 take 1 tablet by mouth once daily pantoprazole DR (PROTONIX) 20 mg tablet Take 1 tablet by mouth once daily. 90 tablet 06/04/2024 06/04/2024 Discontinued Pnv Cmb#95-Ferrous Fumarate-Fa () 28 mg iron- 800 mcg tablet (2 sources) Start: 07-14-2024 Pnv Cmb#95-Ferrous Fumarate-Fa () 28 mg iron- 800 mcg tablet Active 1 {tbl} PO DAILY July 14, 2024 12:00am [id number] ( 19) 29 mg iron- 1 mg (20 sources) Start: 05-02-2024 take 1 tablet by mouth once daily [id number] acid ( 19) 29 mg iron- 1 mg Take 1 tablet by mouth once daily. 100 tablet 3 05/02/2024 Active sertraline 25 mg oral tablet (20 sources) Serotonin Reuptake Inhibitor Start: 05-02-2024 take 1 tablet by mouth once daily sertraline (ZOLOFT) 25 mg tablet Indications: Depressed mood Take 1 tablet by mouth once daily. 90 tablet 3 05/02/2024 Active Completed/Discontinued Medications Medication Drug Class(es) Dates Sig (Normalized) Sig (Original) amoxicillin 500 mg oral capsule (20 sources) Penicillin-class Antibacterial Start: 09-25-2019 End: 10-05-2019 take 1 capsule by mouth three times daily Amoxicillin 500 mg capsule Discontinued 500 mg PO THREE TIMES A DAY 30 September 25, 2019 12:00am October 04, 2019 12:00am October 05, 2019 12:03am Start: 05-01-2019 End: 05-11-2019 take 2 capsules by mouth twice daily Amoxicillin 500 mg capsule Discontinued 1000 mg PO TWICE A DAY 40 May 01, 2019 1:00am May 10, 2019 1:00am May 11, 2019 1:09am Start: 05-01-2019 End: 05-11-2019 take 1000 mg by mouth twice daily Amoxicillin Discontinued 1000 MG PO TWICE A DAY 40 May 01, 2019 1:00am May 11, 2019 1:09am amoxicillin 875 mg / clavulanate 125 mg oral tablet (20 sources) Penicillin-class Antibacterial Start: 01-10-2024 End: 01-20-2024 Amoxicillin-Pot Clavulanate 875-125 mg tablet Discontinued 1 {tbl} PO Q12H 22 12January 10, 2024 1:00am January 19, 2024 1:00am January 20, 2024 1:09am Start: 06-15-2023 End: 06-25-2023 Amoxicillin-Pot Clavulanate 875-125 mg tablet Discontinued 1 {tbl} PO Q12H 20 June 15, 2023 12:00am June 24, 2023 12:00am June 25, 2023 12:05am Start: 01-10-2021 End: 01-20-2021 Amoxicillin-Pot Clavulanate (Augmentin) 875-125 mg tablet Discontinued 1 {tbl} PO Q12H 22 12January 10, 2021 1:00am January 19, 2021 1:00am January 20, 2021 1:01am Start: 10-15-2018 End: 01-31-2019 take 1 tablet by mouth every twelve hours Amoxicillin-Pot Clavulanate 875 MG tablet Discontinued 875 mg PO Q12H October 15, 2018 12:00am January 31, 2019 1:06pm Start: 04-13-2011 End: 04-14-2023 take 5 mL by mouth twice daily amoxicillin-clavulanate 600-42.9 mg/5 mL ORAL suspension Take 5 mL by mouth twice daily. 100 mL 0 04/13/2011 04/14/2023 Discontinued (Course of therapy completed) Comment on above: Take 5 mL by mouth t wice daily. atropine sulfate 0.025 mg / diphenoxylate hydrochloride 2.5 mg oral tablet (7 sources) Anticholinergic, Cholinergic Muscarinic Antagonist, Antidiarrheal Start: 10-22-2022 End: 08-10-2023 Diphenoxylate-Atropine 2.5-0.025 mg tablet Discontinued {tbl} October 22, 2022 12:00am August 10, 2023 10:44am Start: 10-22-2022 Diphenoxylate- Atropine Active TABLET October 22, 2022 12:00am bisoprolol fumarate 5 mg oral tablet (4 sources) beta-Adrenergic Reuben Start: 08-10-2023 End: 07-14-2024 take 1 tablet by mouth once daily Bisoprolol Fumarate 5 mg tablet Discontinued 5 mg PO DAILY August 10, 2023 12:00am July 14, 2024 2:45pm cefdinir 300 mg oral capsule (9 sources) Cephalosporin Antibacterial Start: 03-19-2022 End: 10-22-2022 take 1 capsule by mouth twice daily Cefdinir 300 mg capsule Discontinued 300 mg PO TWICE A DAY March 19, 2022 1:00am October 22, 2022 5:47pm cephalexin 500 mg oral capsule (12 sources) Cephalosporin Antibacterial Start: 02-08-2021 End: 02-18-2021 take 1 capsule by mouth every twelve hours Cephalexin 500 mg capsule Discontinued 500 mg PO Q12H 22 12February 08, 2021 1:00am February 17, 2021 1:00am February 18, 2021 1:02am cyclobenzaprine hydrochloride 5 mg oral tablet (10 sources) Muscle Relaxant Start: 12-07-2021 End: 03-16-2022 take 1 tablet by mouth at bedtime as needed for muscle spasms Cyclobenzaprine 5 mg tablet Discontinued 5 mg PO AT BEDTIME as needed for muscle spasm December 07, 2021 12:00am March 16, 2022 10:04am dicyclomine hydrochloride 10 mg oral capsule (7 sources) Anticholinergic Start: 10-22-2022 End: 08-10-2023 Dicyclomine 10 mg capsule Discontinued mg October 22, 2022 12:00am August 10, 2023 10:44am Start: 10-22-2022 Dicyclomine Ac tive MG October 22, 2022 12:00am Ethinyl Estradiol / norgestimate (13 sources) Progestin, Estrogen Start: 12-25-2018 End: 04-14-2023 take 1 tablet by mouth once daily ESTARYLLA 0.25-35 mg-mcg per tablet Take 1 tablet by mouth once daily. 0 12/25/2018 04/14/2023 Discontinued Start: 10-15-2018 Norgestimate-E thinyl Estradiol Active 1 EACH PO AT BEDTIME October 15, 2018 4:29am Start: 10-15-2018 End: 01-10-2024 Norgestimate-Ethinyl Estradi ol 1 EACH tablet Discontinued 1 NMA PO AT BEDTIME October 15, 2018 12:00am January 10, 2024 9:44am Start: 10-15-2018 Norgestimate-E thinyl Estradiol Active 1 EACH PO AT BEDTIME October 14, 2018 11:00pm Start: 10-15-2018 Norgestimate-E thinyl Estradiol Active 1 EACH PO AT BEDTIME October 15, 2018 12:00am Comment on above: Take 1 tablet by lizeth once daily. fexofenadine hydrochloride 180 mg oral tablet (4 sources) Histamine-1 Receptor Antagonist Start: 2023 End: 2024 take 1 tablet by mouth once daily as needed Fexofenadine (Raquel Allergy) 180 mg tablet Discontinued 180 mg PO DAILY as needed August 10, 2023 12:00am July 14, 2024 2:45pm fluticasone propionate 0.05 mg/actuat metered dose nasal spray (4 sources) Corticosteroid Start: 2023 End: 2024 take 50 ug nasal route once daily Fluticasone Propionate (Flonase Allergy Relief) 50 mcg/actuation spray,suspension Discontinued 2 NMA INTRANASAL daily January 10, 2024 1:00am July 14, 2024 2:45pm administer into each nostril methylPREDNISolone 4 mg oral tablet (10 sources) Corticosteroid Start: 2021 End: 2021 take 1 tablet by mouth once Methylprednisolone (Medrol (Pineda)) 4 mg tablets,dose pack Discontinued 4 mg PO per package directions 21 September 26, 2021 12:00am October 01, 2021 12:00am October 02, 2021 12:04am omeprazole 10 mg delayed release oral capsule (16 sources) Proton Pump Inhibitor Start: 2024 End: 2024 take 1 capsule by mouth once daily omeprazole (PRILOSEC) 10 mg capsule Take 1 capsule by mouth once daily. 90 capsule 06/04/2024 06/13/2024 Discontinued Start: 05-05-2021 End: 03-16-2022 take 1 capsule by mouth once daily Omeprazole 20 mg capsule,delayed release(DR/EC) Discontinued 20 mg PO DAILY May 05, 2021 1:00am March 16, 2022 10:04am predniSONE 10 mg oral tablet (20 sources) Start: 10-23-2023 End: 01-10-2024 take 3 tablets by mouth once daily, then take 2 tablets by mouth once daily, then take 1 tablet by mouth once daily Prednisone 10 mg tablet Discontinued 10 mg PO DAILY October 23, 2023 12:00am January 10, 2024 9:44am 3 tablets daily x3 days, then 2 tablets daily x3 days, then 1 tablet daily x3 days Start: 03-16-2022 End: 10-22-2022 take 1 tablet by mouth twice daily Prednisone 10 mg tablet Discontinued 10 mg PO TWICE A DAY March 16, 2022 1:00am October 22, 2022 5:47pm Start: 12-07-2021 End: 03-16-2022 take 4 tablets by mouth once daily, then take 3 tablets by mouth once daily, then take 2 tablets by mouth once daily, then take 1 tablet by mouth once daily Prednisone 10 mg tablet Discontinued 10 mg PO DAILY December 07, 2021 12:00am March 16, 2022 9:58am 4 tablets daily for 3 days, then 3 tablets daily for 3 days, then 2 tablets daily for 3 days, then 1 tablets daily for 3 days no115/iron/folic ac id ( 19 ORAL) (20 sources) End: 05-02-2024 no115/iron/folic ac id ( 19 ORAL) Take by mouth. 05/02/2024 Discontinued no115/i alberto/folic acid ( 19 ORAL) Take by mouth. Active Problems Active Problems Problem Classification Problem Date Documented Da te Episodic/Chronic Abdominal pain (14 sources) Abdominal pain; Translations: [Unspecified abdominal pain] 10-22-2022 Episodic Anxiety disorders (20 sources) Mixed anxiety and depressive disorder; Translations: [Other specified anxiety disorders] Onset: 01-31-2021 01-14-2024 Chronic Cardiac dysrhythmias (20 sources) Multiple premature ventricular complexes; Translations: [Ventricular premature depolarization] Onset: 08-10-2023 11-13-2023 Chronic E Codes: Fall (5 sources) Fall; Translations: [Unspecified fall, initial encounter] 07-06-2023 Episodic Early or threatened labor (9 sources) Uterine contractions present; Translations: [False labor, unspecified] Onset: 07-14-2024 07-14-2024 Episodic Immunizations and screening for infectious disease (12 sources) Contact with and (suspected) exposure to other viral communicable diseases; Translations: [Contact with or suspected exposure to other viral communicable disease] 03-16-2022 Episodic Joint disorders and dislocations; trauma-related (2 sources) Unspecified internal derangement of right knee; Translations: [Unspecified internal derangement of knee] Chronic Miscellaneous mental health disorders (1 source) Depressed mood; Translations: [Other symptoms and signs involving emotional state] 05-02-2024 Episodic Other complications of (20 sources) Heartburn; Translations: [Other specified related conditions, second trimester] Onset: 06-04-2024 06-04-2024 Episodic Other complications of (2 sources) Low back pain in ; Translations: [Other specified related conditions, third trimester] 07-07-2024 Episodic Other complications of (3 sources) High risk ; Translations: [Supervision of high risk , unspecified, third trimester] 07-11-2024 Episodic Other complications of (4 sources) Uterine contractions problem; Translations: [Other specified related conditions, unspecified trimester] 06-16-2024 Episodic Other complications of (1 source) Supervision of high risk , unspecified, third trimester; Translations: [Supervision of high risk in third trimester ([facility])] Onset: 07-14-2024 Episodic Other complications of (2 sources) Other specified related conditions, third trimester; Translations: [Low back pain during in third trimester ([facility])] Onset: 06-04-2024 Episodic Other connective tissue disease (1 source) Muscle wasting and atrophy, not elsewhere classified, unspecified thigh; Translations: [Muscular wasting and disuse atrophy, not elsewhere classified] Episodic Other connective tissue disease (6 sources) Patellar tendonitis; Translations: [Patellar tendinitis, right knee] 09-26-2021 Episodic Other connective tissue disease (2 sources) Patellar tendinitis, right knee; Translations: [Patellar tendinitis] Episodic Other connective tissue disease (4 sources) Tendonitis of right patellar tendon; Translations: [Patellar tendinitis, right knee] 09-26-2021 Episodic Other female genital disorders (1 source) Vaginal discharge; Translations: [Other specified noninflammatory disorders of vagina] 07-14-2024 Episodic Other female genital disorders (1 source) Other specified noninflammatory disorders of vagina; Translations: [Vaginal discharge] Onset: 07-14-2024 Episodic Other gastrointestinal disorders (7 sources) Constipation; Translations: [Constipation, unspecified] 10-22-2022 Episodic Other gastrointestinal disorders (1 source) Heartburn; Translations: [Heartburn during in third trimester ([facility])] Onset: 06-04-2024 Episodic Other injuries and conditions due to external causes (2 sources) Injury of right knee; Translations: [Unspecified injury of right lower leg, initial encounter] 03-18-2024 Episodic Other lower respiratory disease (7 sources) Dyspnea; Translations: [Shortness of breath] 06-15-2024 Episodic Other nervous system disorders (1 source) Complex regional pain syndrome I of right lower limb; Translations: [Reflex sympathetic dystrophy of the lower limb] Chronic Other non-traumatic joint disorders (2 sources) Pain in right knee; Translations: [Pain in joint, lower leg] Episodic Other non-traumatic joint disorders (1 source) Pain in left shoulder; Translations: [Pain in joint, shoulder region] 04-14-2023 Episodic Other and delivery including normal (20 sources) with uncertain dates; Translations: [Encounter for supervision of normal , unspecified, unspecified trimester] Onset: 01-14-2024 01-14-2024 Episodic Other screening for suspected conditions (not mental disorders or infectious disease) (7 sources) Cancer cervix screening status; Translations: [Encounter for screening for malignant neoplasm of cervix] Onset: 03-28-2024 01-14-2024 Episodic Other upper respiratory infections (20 sources) Acute ethmoidal sinusitis; Translations: [Acute ethmoidal sinusitis, unspecified] Episodic Otitis media and related conditions (11 sources) Otitis media; Translations: [Otitis media, unspecified, right ear] 03-19-2022 Episodic Residual codes; unclassified (12 sources) Pain; Translations: [Pain, unspecified] 05-05-2021 Episodic Residual codes; unclassified (1 source) Gestation period, 7 weeks; Translations: [Less than 8 weeks gestation of ] 01-14-2024 Episodic Residual codes; unclassified (15 sources) Gestation period, 12 weeks; Translations: [12 weeks gestation of ] Onset: 02-18-2024 02-18-2024 Episodic Residual codes; unclassified (1 source) Gestation period, 14 weeks; Translations: [14 weeks gestation of ] 03-06-2024 Episodic Residual codes; unclassified (1 source) Gestation period, 16 weeks; Translations: [16 weeks gestation of ] 03-17-2024 Episodic Residual codes; unclassified (1 source) Gestation period, 19 weeks; Translations: [19 weeks gestation of ] 04-08-2024 Episodic Residual codes; unclassified (2 sources) Gestation period, 23 weeks; Translations: [23 weeks gestation of ] 05-02-2024 Episodic Residual codes; unclassified (1 source) Gestation period, 27 weeks; Translations: [27 weeks gestation of ] 06-04-2024 Episodic Residual codes; unclassified (5 sources) Gestation period, 29 weeks; Translations: [29 weeks gestation of ] 06-16-2024 Episodic Residual codes; unclassified (1 source) Gestation period, 32 weeks;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 [facility] Address: [address] [place] [address] Performed By: #### B VAMP, CVTV #### [facility] CLIA [id number] [address] [place] [address] [place] MCHC (RBC) [Mass/Vol] 35.0 g/dL Normal 30.5-36.0 [facility] Comment on above: Order Comment: Speci men Type: SWAB Ordering Facility: [facility] Address: [address] [place] [address] Performed By: #### B VAMP, CVTV #### [facility] CLIA [id number] [address] [place] [address] [place] MCV (RBC) [Entitic vol] 85.8 fL Normal 80.0-100.0 C [facility] Comment on above: Order Comment: Speci men Type: SWAB Ordering Facility: [facility] Address: [address] [place] [address] Performed By: #### B VAMP, CVTV #### [facility] CLIA [id number] [address] [place] [address] [place] Monocytes (Bld) [#/Vol] 0.67 10*3/uL Normal <0.87 [facility] Comment on above: Order Comment: Speci men Type: SWAB Ordering Facility: [facility] Address: [address] [place] [address] Performed By: #### B VAMP, CVTV #### [facility] CLIA [id number] [address] [place] [address] [place] Monocytes/100 WBC (Bld) 6.1 % Normal C [facility] Comment on above: Order Comment: Speci men Type: SWAB Ordering Facility: [facility] Address: [address] [place] [address] Performed By: #### B VAMP, CVTV #### [facility] CLIA [id number] [address] [place] [address] [place] Neutrophils (Bld) [#/Vol] 6.83 10*3/uL Normal 1.45-7.50 [facility] Comment on above: Order Comment: Speci men Type: SWAB Ordering Facility: [facility] Address: [address] [place] [address] Performed By: #### B VAMP, CVTV #### [facility] CLIA [id number] [address] [place] [address] [place] Neutrophils/100 WBC (Bld) 62.6 % Normal [facility] Comment on above: Order Comment: Speci men Type: SWAB Ordering Facility: [facility] Address: [address] [place] [address] Performed By: #### B VAMP, CVTV #### [facility] CLIA [id number] [address] [place] [address] [place] Nucleated RBC (Bld) [#/Vol] 10*3/uL Normal <0.01 [facility] Comment on above: Order Comment: Speci men Type: SWAB Ordering Facility: [facility] Address: [address] [place] [address] Performed By: #### B VAMP, CVTV #### [facility] CLIA [id number] [address] [place] [address] [place] Nucleated RBC/100 WBC (Bld) [Ratio] 0.0 /100 WBC Normal [facility] Comment on above: Order Comment: Speci men Type: SWAB Ordering Facility: [facility] Address: [address] [place] [address] Performed By: #### B VAMP, CVTV #### [facility] CLIA [id number] [address] [place] [address] [place] Platelet mean volume (Bld) [Entitic vol] 9.7 fL Normal 9.0-12.7 [facility] Comment on above: Order Comment: Speci men Type: SWAB Ordering Facility: [facility] Address: [address] [place] [address] Performed By: #### B VAMP, CVTV #### [facility] CLIA [id number] [address] [place] [address] [place] Platelets (Bld) [#/Vol] 320 10*3/uL Normal 150-400 [facility] Comment on above: Order Comment: Speci men Type: SWAB Ordering Facility: [facility] Address: [address] [place] [address] Performed By: #### B VAMP, CVTV #### [facility] CLIA [id number] [address] [place] [address] [place] RBC (Bld) [#/Vol] 4.80 10*6/uL Normal 3.90-5.20 [facility] Comment on above: Order Comment: Speci men Type: SWAB Ordering Facility: [facility] Address: [address] [place] [address] Performed By: #### B VAMP, CVTV #### [facility] CLIA [id number] [address] [place] [address] [place] WBC (Bld) [#/Vol] 10.92 10*3/uL Normal 3.70-11.00 [facility] Comment on above: Order Comment: Speci men Type: SWAB Ordering Facility: [facility] Address: [address] [place] [address] Performed By: #### B VAMP, CVTV #### [facility] CLIA [id number] [address] [place] [address] [place] nuchal translucency me asured by Trell 02-18-2024 Indication First trimester anatomic survey Impression REMOTE READ The patient is referred for a first trimester anatomy scan including nuchal translucency measurement as clinically indicated. - Single, live, intrauterine . - [place] rump length measurement is consistent with the established gestational age. - No malformations visualized on a complete first trimester anatomic assessment. - The nuchal translucency measurement is 1.4 mm. - Not all structural malformations can be detected by ultrasound examination. Maternal Structures: Right Ovary: Size 34 mm x 21 mm x 22 mm Recommendations Return for anatomy ultrasound Maternal Assessment Height 157 cm Height (ft) 5 ft Height (in) 2 in Physical Exam Initial weight (lb) 138 lb Initial BMI 25.24 kg/m Maternal assessment other: 1 Para 0 Method Transabdominal ultrasound examination Sánchez . Number of fetuses: 1 Dating LMP on: 11/23/2023 GA by LMP 12 w + 3 d JEM by LMP: 08/29/2024 GA by prior assessment 12 w + 3 d JEM by prior assessment: 08/29/2024 Ultrasound examination on: 02/18/2024 GA by U/S based upon: CRL GA by U/S 12 w + 6 d JEM by U/S: 08/26/2024 Assigned: based on stated JEM, selected on 02/18/2024 Assigned GA 12 w + 3 d Assigned JEM: 08/29/2024 General Evaluation Cardiac activity present Placenta: posterior Cord vessels: 3 vessel cord Amniotic fluid: normal amount Biometry Standard FHR 159 bpm CRL 65.1 mm 12w 6d 72% Hadlock NT 1.40 mm First Trimester Anatomy Calvarium: normal Falx cerebri: normal Choroid plexus: normal Profile: normal Nasal bone: normal Retronasal triangle: normal Maxilla: normal Mandible: normal Nuchal translucency: Unremarkable Situs: normal Cardiac position: normal Cardiac axis: normal 4-chamber view: visualized 4-chamber view with color: visualized [id number] view: normal Abdominal cord insertion: normal Stomach: normal Kidneys: visualized Bladder: normal Color doppler of perivesical umbilical arteries: normal Vertebral alignment: normal Arms: normal Hands: normal Legs: normal Feet: normal Maternal Structures Uterus / Cervix Uterus: Visualized Uterus length 160 mm Uterus width 96 mm Uterus height 61 mm Uterus Vol 492.5 cm Ovaries / Tubes / Adnexa Rt ovary: Visualized Rt ovary D1 34 mm Rt ovary D2 21 mm Rt ovary D3 22 mm Rt ovary Vol 8.1 cm Lt ovary: Not visualized Performed By: Mary Grace Lopez, ANTOINE, RVT Read By: Marlene Prakash M.D. MATERNAL MEDICINE [facility] Radiology Study observation (narrative) [facility] HBV surface Ag Ser Qlon 02-02 HBV surface Ag Ql (S) Negative Normal Negative [facility] Comment on above: Order Comment: Speci men Type: SWAB Ordering Facility: [facility] Address: [address] [place] [address] Performed By: #### B VAMP, CVTV #### [facility] CLIA [id number] [address] [place] [address] [place] HCV Ab Ser Qlon 02-18-2024 HCV Ab Ql (S) Negative Normal Negative [facility] Comment on above: Order Comment: Speci men Type: SWAB Ordering Facility: [facility] Address: [address] [place] [address] Result Comment: The result suggests no evidence of active infection with Hepatitis C virus. Should recent infection be suspected, repeat testing may be considered 4-6 weeks after this draw. Performed By: #### B VAMP, CVTV #### [facility] CLIA [id number] [address] [place] [address] [place] HIV 1+2 Ab IA Qlon 4 HIV 1 and 2 Ab IA.rapid Nom (S/P/Bld) Normal [facility] Comment on above: Order Comment: Speci men Type: SWAB Ordering Facility: [facility] Address: [address] [place] [address] Result Comment: Test not indicated. Performed By: #### B VAMP, CVTV #### [facility] CLIA [id number] [address] [place] [address] [place] HIV 1+2 Ab+HIV1 p24 Ag IA Ql Non-Reactive Normal Nonreactive [facility] Comment on above: Order Comment: Speci men Type: SWAB Ordering Facility: [facility] Address: [address] [place] [address] Performed By: #### B VAMP, CVTV #### [facility] CLIA [id number] [address] [place] [address] [place] HIV immunoassay testing algorithm interpretation (S/P/Bld) [Interp] Normal [facility] Comment on above: Order Comment: Speci men Type: SWAB Ordering Facility: [facility] Address: [address] [place] [address] Result Comment: No e vidence of HIV-1 or HIV-2 infection. Should recent infection be suspected, repeat testing may be considered 2-3 weeks after this draw. [place] Rev. Code 3701.243(E): This information has been disclosed to you from confidential records protected from disclosure by state law. ???You shall make no further disclosure of this information without the specific, written, and informed release of the individual to whom it pertains or as otherwise permitted by state law. A general authorization for the release of medical or other information is not sufficient for the purpose of the release of HIV test results or diagnoses. Performed By: #### B VAMP, CVTV #### [facility] CLIA [id number] [address] [place] [address] [place] HbA1c (Bld)on 02-18-2024 Average glucose Estimated from glycated hemoglobin (Bld) [Mass/Vol] 80 mg/dL Normal [facility] Comment on above: Order Comment: Speci men Type: BLOOD SPECIMEN Ordering Facility: [facility] Address: [address] [place] [address] Result Comment: eAG: (Estimated average glucose) is a calculated value from HgbA1c and is ambulatory services representative of the average blood glucose level in the last 2-3 month period. Performed By: #### 5 5454-3 #### [facility] [place] [id number] [address] [place] [address] [place] HbA1c (Bld) [Mass fraction] 4.4 % Normal 4.3-5.6 [facility] Comment on above: Order Comment: Speci [facility] Type: BLOOD SPECIMEN Ordering Facility: [facility] Address: [address] [place] [address] Result Comment: Amer [place] Diabetes Association guidelines indicate that patients with HgbA1c in the range 5.7-6.4% are at increased risk for development of diabetes, and intervention by lifestyle modification may be beneficial. HgbA1c greater or equal to 6.5% is considered diagnostic of diabetes. Performed By: #### 5 5454-3 #### [facility] CLIA [id number] [address] [place] [address] [place] [id number] PLUSon 02-18-2024 Cell-free DNA./Cell-free DNA.total Dosage of chromosome-specific cfDNA (cfDNA) [Molar fraction] 20% Normal [facility] Comment on above: Order Comment: Hilda barry Type: SWAB Ordering Facility: [facility] Address: [address] [place] [address] Performed By: #### B VAMP, CVTV #### [facility] CLIA [id number] [address] [place] [address] [place] Chr 13+18+21+X+Y aneuploidy Dosage of chromosome-specific cfDNA Ql (cfDNA) Negative Normal [facility] Comment on above: Order Comment: Hilda barry Type: SWAB Ordering Facility: [facility] Address: [address] [place] [address] Performed By: #### B VAMP, CVTV #### [facility] CLIA [id number] [address] [place] [address] [place] Chr 21 trisomy Dosage of chromosome-specific cfDNA Ql (cfDNA) Negative Normal [facility] Comment on above: Order Comment: Hilda barry Type: SWAB Ordering Facility: [facility] Address: [address] [place] [address] Performed By: #### B VAMP, CVTV #### [facility] CLIA [id number] [address] [place] [address] [place] Chr X and Y aneuploidy risk Sequencing Ql (cfDNA) [Interp] Not detected Normal [facility] Comment on above: Order Comment: Speci men Type: SWAB Ordering Facility: [facility] Address: [address] [place] [address] Result Comment: Not Detected Not Detected Performed By: #### B VAMP, CVTV #### [facility] CLIA [id number] [address] [place] [address] [place] Citation Jalen (Reference lab test) Comment Normal [facility] Comment on above: Order Comment: Speci men Type: SWAB Ordering Facility: [facility] Address: [address] [place] [address] Result Comment: 1. P anita SAEED, et al. Gabrielle Med. 2012;14(3):296-305. 2. Castillo RUFFIN et al. Prenat Diag. 2013;33(6):591-597. 3. Jono C, et al. Clin Chem. 2015 Apr;61(4):608-616. 4. Kimmy SAEED et al. Gabrielle Med. 2011;13(11):913-920. 5. ACOG/SMFM Practice Bulletin No. 226, Dec 2019. Performed By: #### B VAMP, CVTV #### [facility] CLIA [id number] [address] [place] [address] [place] Gestational age Estimated from conception date Sánchez Normal [facility] Comment on above: Order Comment: Speci men Type: SWAB Ordering Facility: [facility] Address: [address] [place] [address] Performed By: #### B VAMP, CVTV #### [facility] CLIA [id number] [address] [place] [address] [place] GESTATIONALAGE AGE > OR = 9W Yes Normal [facility] Comment on above: Order Comment: Speci men Type: SWAB Ordering Facility: [facility] Address: [address] [place] [address] Performed By: #### B VAMP, CVTV #### [facility] CLIA [id number] [address] [place] [address] Laboratory comment Jalen (Report) Comment Normal [facility] Comment on above: Order Comment: Hilda barry Type: SWAB Ordering Facility: [facility] Address: [address] [place] [address] Result Comment: The MaterniT(R) 21 PLUS laboratory-developed test (LDT) analyzes circulating cell-free DNA from a maternal blood sample. This test is used for screening purposes and not diagnostic. Clinical correlation is recommended. Validation data on twin pregnancies is limited and the ability of this test to detect aneuploidy in higher multiple gestations has not yet been validated. Performed By: #### B SUSSY CVTV #### [facility] CLIA [id number] [address] [place] [address] director social service name Nom (Provider) Comment Normal [facility] Comment on above: Order Comment: Hilda barry Type: SWAB Ordering Facility: [facility] Address: [address] [place] [address] Result Comment: This specimen showed an expected representation of chromosome 21, 18 and 13 material. Clinical correlation is suggested. Comment Scott Euceda MD, PhD, Director, [employer] Performed By: #### B SUSSY, CVTV #### [facility] CLIA [id number] [address] [place] [address] LIMITATIONS OF THE TEST Comment Normal [facility] Comment on above: Order Comment: Hilda barry Type: SWAB Ordering Facility: [facility] Address: [address] [place] [address] Result Comment: Whil e the results of these tests are highly reliable, discordant results, including inaccurate sex prediction, may occur due to placental, maternal, or mosaicism or neoplasm; vanishing twin; prior maternal organ transplant; or other causes. These tests are screening tests and not diagnostic; they do not replace the accuracy and precision of diagnosis with CVS or amniocentesis. A patient with a positive test result should be referred for genetic counseling and offered invasive diagnosis for confirmation of test results.[5] The results of this testing, including the benefits and limitations, should be discussed with a qualified healthcare provider. management decisions, including termination of the , should not be based on the results of these tests alone. The healthcare provider is responsible for the use of this information in the management of their patient. Sex chromosomal aneuploidies are not reportable for known multiple gestations. A negative result does not ensure an unaffected nor does it exclude the possibility of other chromosomal abnormalities or defects which are not a part of these tests. An uninformative result may be reported, the causes of which may include, but are not limited to, insufficient sequencing coverage, noise or artifacts in the region, amplification or sequencing bias, or insufficient fraction. These tests are not intended to identify pregnancies at risk for neural tube defects or ventral wall defects. Testing for whole chromosome abnormalities (including sex chromosomes) and for subchromosomal abnormalities could lead to the potential discovery of both and maternal genomic abnormalities that could have major, minor, or no, clinical significance. Evaluating the significance of a positive or a non-reportable result may involve both invasive testing and additional studies on the mother. Such investigations may lead to a diagnosis of maternal chromosomal or subchromosomal abnormalities, which on occasion may be associated with benign or malignant maternal neoplasms. These tests may not accurately identify triploidy, balanced rearrangements, or the precise location of subchromosomal duplications or deletions; these may be detected by diagnosis with CVS or amniocentesis. The ability to report results may be impacted by maternal BMI, maternal weight, maternal systemic lupus erythematosus (SLE) and/or by certain pharmaceutical agents such as low molecular weight heparin (for example: Lovenox(R), Xaparin(R), Clexane(R) and Fragmin(R)). Performed By: #### B TIFFANIE HI #### [facility] CLIA [id number] [address] [place] [address] [place] Monosomy X risk Dosage of chromosome-specific cfDNA Ql (Plasma cell-free+WBC DNA) [Interp] Not detected Normal [facility] Comment on above: Order Comment: Speci men Type: SWAB Ordering Facility: [facility] Address: [address] [place] [address] Performed By: #### B VAMP, CVTV #### [facility] CLIA [id number] [address] [place] [address] NEGATIVE PREDICTIVE VALUE Note Normal [facility] Comment on above: Order Comment: Speci men Type: SWAB Ordering Facility: [facility] Address: [address] [place] [address] Result Comment: The Negative Predictive Value (NPV) for trisomy 21, 18, and 13 is greater than 99%. The NPV for SCA and ESS cannot be calculated as SCA and ESS are only reported when an abnormality is detected. Performed By: #### B VAMP, CVTV #### [facility] CLIA [id number] [address] [place] [address] NOTE Comment Normal [facility] Comment on above: Order Comment: Speci men Type: SWAB Ordering Facility: [facility] Address: [address] [place] [address] Result Comment: See Notes [employer] is a subsidiary of [employer] using the brand [employer]. This test was developed and its performance characteristics determined by [employer]. It has not been cleared or approved by the Food and Drug Administration. This laboratory is certified under the Clinical Laboratory Improvement Amendments (CLIA) as qualified to perform high complexity clinical laboratory testing and accredited by the [employer] [place] [employer] (CAP). If there is future clinical need for adding MaterniT GENOME testing, this specimen will be available until term. [facility] samples will not be retained beyond 60 days. [facility] patients will have to send a new sample for re-sequencing ([facility] Test Code: [id number]). Performed By: #### B VAMP, CVTV #### [facility] CLIA [id number] [address] [place] [address] PERFORMANCE CHARACTERISTICS Note Normal [facility] Comment on above: Order Comment: Speci men Type: SWAB Ordering Facility: [facility] Address: [address] [place] [address] Result Comment: ! Sex ! Accuracy: 99.4% ! ! ! ! Region (associated syndrome) ! Est. Sens# ! Est. Spec ! ! ! ! Trisomy 21 (Down Syndrome) ! 99.1% ! 99.9% ! ! ! ! Trisomy 18 (Gibson Syndrome) ! >99.9% ! 99.6% ! ! ! ! Trisomy 13 (Patau Syndrome) ! 91.7% ! 99.7% ! ! ! ! Sex Chromosome Aneuploidies## ! 96.2% ! 99.7% ! ! ! * As reported in ISCA database nstd37 [https://www.ncbi.nlm.nih.gov/dbvar/studies/nstd37/ ] # Estimated Sensitivity. Sensitivity estimated across the observed size distribution of each syndrome [per ISCA database nstd37] and across the range of fractions observed in routine clinical NIPT. Actual sensitivity can also be influenced by other factors such as the size of the event, total sequence counts, amplification bias, or sequence bias. ## Sánchez gestation only. Performed By: #### B VAMP, CVTV #### [facility] CLIA [id number] [address] [place] [address] [place] POSITIVE PREDICTIVE VALUE N/A Normal [facility] Comment on above: Order Comment: Speci men Type: SWAB Ordering Facility: [facility] Address: [address] [place] [address] Performed By: #### Tiera VAMP, CVTV #### [facility] CLIA [id number] [address] [place] [address] [place] Reference Lab Test Method Comment Normal [facility] Comment on above: Order Comment: Speci men Type: SWAB Ordering Facility: [facility] Address: [address] [place] [address] Result Comment: See Notes Circulating cell-free DNA was purified from the plasma component of maternal blood. The extracted DNA was then converted into a genomic DNA library for aneuploidy analysis of chromosomes 21, 18, and 13 via next generation sequencing.[1] Optional findings based on the test order include sex chromosome aneuploidy (SCA)[2], and enhanced sequencing series (ESS)[3], which will only be reported on as an additional finding when an abnormality is detected. SCA testing includes information on X and Y representation, while ESS testing includes deletions in selected regions (22q, 15q, 11q, 8q, 5p, 4p, 1p) and trisomy of chromosomes 16 and 22. Performed By: #### B VAMP, CVTV #### [facility] CLIA [id number] [address] [place], [place] [address] [place] Sex Dosage of chromosome-specific cfDNA Nom (cfDNA) Comment Normal [facility] Comment on above: Order Comment: Speci men Type: SWAB Ordering Facility: [facility] Address: [address] [place] [address] Result Comment: Cons istent with Male Performed By: #### B VAMP, CVTV #### [facility] CLIA [id number] [address] [place] [address] [place] Test performance information Jalen (Unsp spec) Comment Normal [facility] Comment on above: Order Comment: Speci men Type: SWAB Ordering Facility: [facility] Address: [address] [place] [address] Result Comment: The performance characteristics of the MaterniT(R) 21 PLUS laboratory-developed test (LDT) have been determined in a clinical validation study with women at increased risk for chromosomal aneuploidy.[1-4] Performed By: #### B VAMP, CVTV #### [facility] CLIA [id number] [address] [place] [address] [place] Trisomy 13 risk Dosage of chromosome-specific cfDNA Ql (cfDNA) [Interp] Negative Normal [facility] Comment on above: Order Comment: Speci men Type: SWAB Ordering Facility: [facility] Address: [address] [place] [address] Performed By: #### B VAMP, CVTV #### [facility] CLIA [id number] [address] [place] [address] [place] Trisomy 18 risk Dosage of chromosome-specific cfDNA Ql (Plasma cell-free+WBC DNA) [Interp] Negative Normal [facility] Comment on above: Order Comment: Speci men Type: SWAB Ordering Facility: [facility] Address: [address] [place] [address] Performed By: #### B VAMP, CVTV #### [facility] CLIA [id number] [address] [place] [address] [place] RUBELLA IGG ANTIBODYon 02-17 RUBELLA IGG AB, QUAL Positive Normal Positive [facility] Comment on above: Order Comment: Speci men Type: BLOOD SPECIMENOrdering Facility: [facility] Address: [address] [place] [address] Result Comment: The result suggests recent or past exposure to Rubella virus or history of Rubella vaccination. Positive result may also be seen due to presence of passively-transferred antibodies. Please correlate with patient's history. Performed By: #### R UBIGG ####[facility] [id number] [place] [address] [place] Reagin and Treponema pallidu m IgG and IgM [Interp]on 02-18-2024 T. pallidum IgG+IgM IA Ql (S) Non-Reactive Normal Nonreactive [facility] Comment on above: Order Comment: Speci men Type: SWAB Ordering Facility: [facility] Address: [address] [place] [address] Performed By: #### B VAMP, CVTV #### [facility] CLIA [id number] [address] [place] [address] [place] Reagin+T pallidum IgG+IgM Se rPl-Impon 02-18-2024 Reagin and Treponema pallidum IgG and IgM [Interp] Cannot exclude recent Treponemal infection if specimen collected within 7-10 days after appearance of suspect lesions or 2-3 weeks after an exposure. Clinical correlation is required. Normal [facility] Comment on above: Order Comment: Speci men Type: SWAB Ordering Facility: [facility] Address: [address] [place] [address] Performed By: #### B VAMP, CVTV #### [facility] CLIA [id number] [address] [place] [address] [place] Bacteria Ur Culton 4 Bacteria identified Cx Nom (U) ORGANISM ID: 1 <10,000 CFU/ml Normal urogenital reza Normal [facility] Comment on above: Performed By: #### 6 30-4 ####[facility] [id number] [place] [address] [place] C. trachomatis+N. gonorrhoea e DNA RICHARD+probe Ql (Unsp spec)on 01-14-2024 C. trachomatis rRNA RICHARD+probe Ql (Unsp spec) Negative Normal Negative for Chlamydia trachomatis by amplificaton [facility] Comment on above: Order Comment: Speci men Type: SWAB Ordering Facility: [facility] Address: [address] [place] [address] Performed By: #### B VAMP, CVTV #### [facility] CLIA [id number] [address] [place] [address] [place] N. gonorrhoeae rRNA RICHARD+probe Ql (Unsp spec) Negative Normal Negative for Neisseria gonorrhoeae by amplification [facility] Comment on above: Order Comment: Speci men Type: SWAB Ordering Facility: [facility] Address: [address] [place] [address] Performed By: #### B VAMP, CVTV #### [facility] CLIA [id number] [address] [place] [address] [place] PAP TESTon 01-14-2024 ADEQUACY Normal [facility] Comment on above: Order Comment: Speci men Type: SWAB Ordering Facility: [facility] Address: [address] [place] [address] Result Comment: Sati sfactory for interpretation. No endocervical component Performed By: #### B VAMP, CVTV #### [facility] CLIA [id number] [address] [place] [address] [place] CASE REPORT Normal [facility] Comment on above: Order Comment: Speci men Type: SWAB Ordering Facility: [facility] Address: [address] [place] [address] Result Comment: Gyne cologic Cytology Report Case: [id number] Authorizing Provider: Angie Ocasio APRN.SENIOR PROGRAM MANAGER Collected: 01/14/2024 09:13 AM Ordering Location: OB/Gynecology Received: 01/14/2024 01:06 PM First Screen: Gareth Swanson Tech Specimen: Pap Test, ThinPrep, Cervix Performed By: #### B VAMP, CVTV #### [facility] CLIA [id number] [address] [place] [address] [place] CLINICAL HISTORY, CYTOLOGY, CERTIFIED MORTICIAN Routine Exam Normal [facility] Comment on above: Order Comment: Speci men Type: SWAB Ordering Facility: [facility] Address: [address] [place] [address] Performed By: #### B VAMP, CVTV #### [facility] CLIA [id number] [address] [place] [address] [place] FINAL PERFORMING LAB Normal [facility] Comment on above: Order Comment: Speci men Type: SWAB Ordering Facility: [facility] Address: [address] [place] [address] Result Comment: Rosi nical component, machine shop apprentice screening performed at [facility], [address] [place], [place] [id number] CLIA# [id number] Diagnostic interpretation performed at [facility], [address] [place], [place] [id number] CLIA# [id number] Sawing And Assembly Supervisor: Julien Link M.D. Performed By: #### B VAMP, CVTV #### [facility] CLIA [id number] [address] [place] [address] [place] INTERPRETATION, CYTOLOGY, CERTIFIED MORTICIAN Normal [facility] Comment on above: Order Comment: Speci men Type: SWAB Ordering Facility: [facility] Address: [address] [place] [address] Result Comment: Nega tive for intraepithelial lesion or malignancy. Performed By: #### B VAMP, CVTV #### [facility] CLIA [id number] [address] [place], [place] [id number] [place] LMP 11/23/2023 Normal [facility] Comment on above: Order Comment: Speci men Type: SWAB Ordering Facility: [facility] Address: [address] [place] [address] Performed By: #### B VAMP, CVTV #### [facility] CLIA [id number] [address] [place] [address] [place] PAP DISCLAIMER COMMENT The Pap Smear is a screening test for cervical cancer. False negative results occur with all screening tests, emphasizing the need for rescreening at recommended intervals, and clinical correlation. Normal [facility] Comment on above: Order Comment: Speci men Type: SWAB Ordering Facility: [facility] Address: [address] [place] [address] Performed By: #### B VAMP, CVTV #### [facility] CLIA [id number] [address] [place] [address] [place] PAP PHYS THER COMMENT This specimen has been analyzed by the ThinPrep Imaging System, an automated imaging and review system, which assists the laboratory in evaluating cells on ThinPrep Pap tests. Following automated imaging, selected villanueva from every slide are reviewed by a machine shop apprentice. Normal [facility] Comment on above: Order Comment: Speci men Type: SWAB Ordering Facility: [facility] Address: [address] [place] [address] Performed By: #### B VAMP, CVTV #### [facility] CLIA [id number] [address] [place] [address] [place] POC LINE CREW SUPERVISOR ULTRASOUNDon 01-14-20 24 Indication Confirmation of intrauterine . Confirmation of cardiac activity Impression CRL is appropriate for clinical dates, corresponding to JEM 08/29/24 , cardiac activity is visualized Recommendations Follow up for NT scan if desired Method Transabdominal ultrasound examination. View: Adequate visualization Sánchez . Number of embryos: 1 Dating LMP on: 11/23/2023 GA by LMP 7 w + 3 d JEM by LMP: 08/29/2024 Ultrasound examination on: 01/14/2024 GA by U/S based upon: CRL GA by U/S 7 w + 1 d JEM by U/S: 08/31/2024 Assigned: based on the LMP, selected on 01/14/2024 Assigned GA 7 w + 3 d Assigned JEM: 08/29/2024 Biometry Standard FHR 143 bpm CRL 10.6 mm 7w 1d 42% Hadlock Assessment CRL 10.6 mm 7w 1d 42% [place]lock Cardiac activity: present FHR 143 bpm General Evaluation Cardiac activity present. FHR 143 bpm Performed By: Angie Ocasio CNP Read By: Angie Ocasio CNP MATERNAL MEDICINE [facility] Radiology Study observation (narrative) [facility] Visit Reporton 1 03-11-2023 Urgent Care Visit Report [facility] [address], [address] [place] [address] OFFICE VISIT Date of Service: 01/10/24 MR#: [id number] Acct: [id number] Name: GREGG ZUNIGA Rep #: [id number] : 2000 Provider: ARDEN Baldwin Age/Sex: 23/F Location: [facility] Status: Signed Intake Vital Signs 11/01/23 11:55 01/10/24 08:43 Height 5 ft 1 in BP 126/68 H Blood Pressure Location Rt brachial Position Sitting Respiration 15 Pulse 89 Pulse Source NIBP Temp 98.7 F Temp Source Oral Pulse Oximetry (%) 98 Oxygen Delivery Method room air Intake Visit Reasons: BILAT EAR PAIN/POLLOCK/SINUS COMPLAINT Chief Complaint: ear pain, PND, POLLOCK, grn mucus Hedge Fund 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 Required: No Is patient in pain?: Yes Allergies lactose Allergy (Mild, Verified 01/10/24 08:43) Unknown adhesive (adhesives) Adverse Reaction (Severe, Verified 01/10/24 08:43) Rash Medications ???Medication ???Instructions ???Recorded ???Confirmed ???Type acetaminophen 325 mg tablet 325 mg PO ONCE PRN fever or pain 12/08/21 08/10/23 History (Tylenol) bisoprolol fumarate 5 mg tablet 5 mg PO DAILY #30 tabs 06/07/24 06/07/24 Rx fexofenadine 180 mg tablet 180 mg PO DAILY PRN 08/10/23 08/10/23 History (Raquel Allergy) amoxicillin 875 mg-potassium 1 tab PO Q12H 10 days #20 tabs 01/10/24 01/10/24 Rx clavulanate 125 mg tablet fluticasone propionate 50 2 spray intranasal QDAY #16 grams 01/10/24 01/10/24 Rx mcg/actuation nasal spray,suspension (Flonase Allergy Relief) Is last menstrual period known: No Patient : Yes Have you fallen in the past year?: No Nurse's Note: ear pain, PND, POLLOCK, grn mucus. pt is 6 weeks . declines covid testing. info given to provider. [facility] Medical History Physical exam, pre-employment Palpitations Chest pain PVCs (premature ventricular contractions) Cephalgia Contact with and (suspected) exposure to other viral communicable diseases Strain of right knee Surgical History Hx of arthroscopy of right knee Family History Grandmother Heart disease Parkinsons Cancer Grandfather Cancer Social History Smoking Status: Never smoker alcohol intake: never substance use type: does not use caffeine: Yes HPI HPI Chief Complaint: ear pain, PND, POLLOCK, grn mucus Details: GREGG ZUNIGA, is a 23 F who presents to the office today for complaint of ear pain, headache and green mucus for the past week. Patient denies fever, chills, sweats. No nausea, vomiting or diarrhea. No hemoptysis, shortness of breath or difficulty breathing. No loss of taste or smell. No other associated symptoms or alleviating/aggravat ing factors. ROS Const Constitutional: No other (as above) Exam Const General: cooperative and healthy appearing [facility] Head: normal to inspection Ears: hearing grossly normal bilaterally, TM's normal bilaterally and EAC's normal Nose: nasal discharge purulent Face and sinus: sinus tenderness frontal and maxillary Mouth: oral mucosae normal Throat: abnormal tonsil bilaterally erythema and hypertrophy 1+ and postnasal drainage Resp Effort Inspection: normal respiratory effort Auscultation: Bilateral: Clear to Auscultation Cardio Rate: regular rate Rhythm: regular rhythm Neuro General: patient alert Psych Appearance: grossly normal Mental Status: mental status grossly normal Coding Level of Care Code Off vis,est,level 3 Diagnoses Acute sinusitis J. Assessment and Plan Assessment and Plan (1) Acute sinusitis: Status: Acute Medications: New amoxicillin-pot clavulanate 875-125 mg 1 TAB PO Q12H 20 tabs 0RF 10 days J01.90 - Acute sinusitis, unspecified fluticasone propionate 50 mcg/actuation (Flonase Allergy Relief) administer into each nostril 2 sprays intranasal QDAY 16 grams 0RF Plan Augmentin and Flonase as prescribed today. Encouraged to get plenty of rest, drink lots of clear liquids, and use Tylenol or Ibuprofen (unless contraindicated) for fever and comfort. Patient also e ducated on other symptomatic management techniques. To be seen in 7-10 days if no improvement; sooner if worsening of symptoms. Patient advised of potential red flags and when appropriate to report to the ED. Patient verbalized understanding and agreement with all the above. Clinical Quality Measures Falls Risk Screening/Assistive Devices Have you fallen in the past year?: No 01/10/24906 Date Rick Adan Signature: Date (if ap (more content not included)... Normal [facility] CNCOon 12-24-2023 CNCO Letter Text Normal [facility] CNOVon 12-24-2023 CNOV Office Visit (CARDMN) GREGG ZUNIGA ([id number]) 4 F Date Time Provider Department 12/24/23 8:30 AM JAY YBRD During your visit today, we recorded the following information about you: Pulse Blood pressure Weight Height 99/minute 134/84 62 kg 1.562 m Jay Byrd MD 12/24/2023 9:21 AM Signed [facility] [place] [facility] Castellanos Department of Cardiovascular Medicine SECTION OF CARDIAC PACING and ELECTROPHYSIOLOGY OUTPATIENT VISIT DATE December 24, 2023 OUTPATIENT VISIT TYPE NEW PRIMARY CARE PHYSICIAN: Kayleen Mckay MD [facility] [place] [address] REFERRING PHYSICIAN: Edith Pablo 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 She has a history of low burden PVCs that was treated with metoprolol. She was seen by pediatric cardiology in 07/2020 for chest pain. She was found to have an 8.1% PVC burden on a 72 Hour Holter in 07/2020 and Echo was normal. She was started on metoprolol succinate 12.5 mg daily in 07/2022. Most recent 72 Hour Holter 04/2023 showed 1.3% burden. She endorses chest pain and palpitations with PVCs. Her metoprolol was increased to 25 mg daily several months ago. She reports she feels well overall but has episodes of HRs over 130s for hours. She endorses 5 episodes of syncope in the last few months in relation to these episodes. She reports feeling hot, dizzy and has palpitations prior to syncope. She reports having episodes 1-2 times a month. Her episodes are not related to activity or position. She reports the increase in metoprolol has not helped the episodes. She endorses frequent chest pain which is not related to exertion. She endorses occasional shortness of breath with exertion. She endorses daily episodes of palpitations. She reports she stays well hydrated with around 80 oz of water daily or more. She rarely uses liquid IV or other electrolyte supplements. She does not wear compression clothing. 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 She has caffeine a few times a week. == She reports experiencing sudden increases in heart rate, reaching 130-150 bpm, even while at rest. These episodes can last for hours and are accompanied by dizziness, diaphoresis, and occasional chest pain. She has experienced syncope three times, approximately once a month, each episode lasting a few seconds. She denies any identifiable triggers. She monitors her heart rate using an Apple Watch and a pulse oximeter. Increased dosage of metoprolol has not alleviated the tachycardia. She denies significant chest pain outside of these episodes. She maintains adequate hydration. PAST MEDICAL HISTORY Diagnosis Date PVC's (premature ventricular contractions) PAST SURGICAL HISTORY Procedure Laterality Date KNEE ARTHROSCOPY Right 01/2022 meniscus repair SOCIAL HISTORY Social History Tobacco Use Smoking status: Never Smokeless tobacco: Never Substance Use Topics Alcohol use: Never Drug use: Never FAMILY HISTORY Problem Relation Age of Onset Heart Maternal Grandmother ALLERGIES: ALLERGIES No Known Allergies MEDICATIONS: metoprolol succinate ER (TOPROL XL) 25 mg 24 hr tablet Take by mouth. REVIEW OF SYSTEMS: General, constitutional: Weight loss or gain- No, Fever or chills-No, Weakness-No, Trouble sleeping-No. Head, Eyes, Ears, Mouth: Headache, head injury-No, Glasses or contact lenses-yes, Pain-No, Impaired vision-No, Decreased hearing-No, Ringing in ears-No, Nose bleeds-No, Dental difficulties-No, Bleeding gums-No, Dentures-No. Neck: Swelling-No, Pain-No, Stiffness-No. Respiratory: Cough-No, Spitting up blood-No, Shortness of breath-No, Wheezing or asthma-No. Musculoskeletal: Muscle or joint pain or stiffness-No, Joint swelling-No. Gastrointestinal: Difficulty swallowing-No, Heartburn-No, Change in bowel habits-No, Blood in stool, Dark black stools-No. Neurological/Psychia tric: Weakness, paralysis-No, Numbness-No, Tingling-No, Tremor-No, Nervousness or anxiety-No, Depressed mood-No, Memory loss-No. Skin: Rash-No, Itching-No. Hematological: Easy bruising-yes, Easy bleeding-No. Endocrine: Heat or cold intolerance-No, Excessive sweating-No, Frequent urination-No, Frequent thirst-No. Phoebe Vona, RN PHYSICAL EXAMINATION: BP 134/84 Pulse 99 Ht 156.2 cm (5' 1.5) Wt 62 kg (136 lb 11.2 oz) LMP 01/04/2019 BMI 25.41 kg/m? General: Well appearing, in no acute distress. Skin: No cyanosis. Eyes: No jaundice Lungs: No wheezing Heart: Regular rhythm Extremities: Warm Neuro: Alert Psych: Cooperative CARDIOVASCULAR MEDICINE TESTING: (more content not included)... Normal [facility] ECG COMPLETEon 12-24-2023 ECG COMPLETE Ventricular Rate : 93 BPM Atrial Rate : 93 BPM P-R Interval : 144 ms QRS Duration : 82 ms Q-T Interval : 330 ms QTC Calculation(Bazett) : 410 ms Calculated P Brussels : 68 degrees Calculated R Brussels : 64 degrees Calculated T Brussels : 39 degrees SINUS RHYTHM WITH PREMATURE SUPRAVENTRICULAR COMPLEXES OTHERWISE NORMAL ECG Confirmed by MD VASQUEZ HEBA ([id number]) on 01/07/2024 8:38:02 PM NAME : GREGG ZUNIGA PID : [id number] : 2000 Gender : Female Race : ORD : [id number] Procedure Date : Dec 24 2023 08:04:19 Edit Date : Jan 07 2024 20:38:04 Diagnosis: SINUS RHYTHM WITH PREMATURE SUPRAVENTRICULAR COMPLEXES OTHERWISE NORMAL ECG Confirmed by MD VASQUEZ HEBA ([id number]) on 01/07/2024 8:38:02 PM Test Reason : Location : 314 : J14 J1-4 Overread By : MD VASQUEZ HEBA Edited By : MD VASQUEZ HEBA Referred By : JAY BYRD Acquired by : MINERVA SAHA Normal [facility] ECHOon 12-24-2023 CONCLUSIONS: - Exam indication: Syncope, Tachycardia, PVC's - The left ventricle is normal in size. Left ventricular systolic function is normal. EF = 63 5% (2D biplane) Normal left ventricular diastolic function. - The right ventricle is normal in size. Right ventricular systolic function is normal. - Estimated right ventricular systolic pressure is likely underestimated due to a weak or incomplete tricuspid regurgitation signal and is, at least, 28 mmHg consistent with normal pulmonary artery pressures. Estimated right atrial pressure is 3 mmHg based on IVC assessment. - The patient has not had a prior CC echocardiographic exam for comparison. * * * Final * * * [facility] Echocardi[facility] Report: Transthoracic Echo [facility] Date of service: 12/24/2023 10:56:13 AM ARTIST Ordering physician: JAY BYRD Indication: Syncope, Tachycardia, PVC's Technologist: Dominguez Pinto [facility] Interpreting physician: Sylvie Romero MD PATIENT: Name: GREGG ZUNIGA : 2000 Age: 23 years Gender: F Primary rhythm: sinus. Secondary rhythm: PVC. Height: 156.20 cm BSA: 1.64 m Weight: 62.01 kg BMI: 25.4 kg/m Heart rate 90 bpm Blood pressure 134/84 mmHg Color Doppler was utilized to interrogate the cardiac valves assessed and spectral Doppler was utilized to determine the flow velocities and pressure gradients reported in this exam. Myocardial strain analysis was performed in this exam to aid in the assessment of cardiac function. MEASUREMENTS: Value Indexed Normal Max aortic dimension 2.5 cm Ao < 3.8 Left atrial volume 50 ml (biplane A-L) 30 ml/m Es <= 34 LV ID (diastole) 4.3 cm (2D) 2.63 cm/m LV ID (systole) 2.8 cm (2D) 1.69 cm/m IVS, leaflet tips 0.7 cm (2D) Posterior wall thickness 0.7 cm (2D) Left ventricular mass 86 g (2D) 52 g/m Global peak long strain -20.9 % LV stroke volume 52 ml (2D biplane) LV end diastolic volume 83 ml (2D biplane) 50.8 ml/m 29<=EDVi<62 LV end systolic volume 31 ml (2D biplane) 18.9 ml/m Ejection Fraction 63 % (2D biplane) EF > 54 FINDINGS: LEFT VENTRICLE The left ventricle is normal in size. Left ventricular systolic function is normal. Global LV myocardial strain is normal. Normal left ventricular diastolic function. Mitral annular lateral E/e': 4.2. Mitral annular septal E/e': 6.2. Wall Motion: All scored segments are normal. RIGHT VENTRICLE The right ventricle is normal in size. Right ventricular systolic function is normal. RV systolic tissue Doppler velocity is 14.0 cm/s. Tricuspid annular displacement is 2.2 cm. Estimated right ventricular systolic pressure is likely underestimated due to a weak or incomplete tricuspid regurgitation signal and is, at least, 28 mmHg consistent with normal pulmonary artery pressures. Estimated right atrial pressure is 3 mmHg based on IVC assessment. LEFT ATRIUM The left atrial cavity is normal in size. RIGHT ATRIUM The right atrial cavity is normal in size. Inferior Vena Cava: The inferior vena cava appears normal measuring 1.5 cm. The vessel decreases greater than 50 percent with inspiration. MITRAL VALVE There is trace mitral valve regurgitation. There is no thickening. The pressure half time is 28 msec. The peak mitral E/A ratio is 1.75. The average mitral E/e' ratio is 5.2. The mitral flow deceleration time is 98 msec. TRICUSPID VALVE The tricuspid valve leaflets are structurally normal. There is trace (trace - 1+) tricuspid valve regurgitation. AORTIC VALVE There is trace aortic valve regurgitation. Tricuspid aortic valve. There is no thickening. PULMONIC VALVE The pulmonic valve was not seen or not interrogated. There is trace pulmonic valve regurgitation. AORTA The visualized aorta is normal in size. Measurements - Mid ascending aorta 2.5 cm. Visualized segments of the ascending, arch, and descending aorta without evidence of dissection. PULMONARY ARTERIES The pulmonary arteries are normal. INTERATRIAL SEPTUM There is no evidence of intracardiac shunting as detected by Doppler. INTERVENTRICULAR SEPTUM There is no flow through the interventricular septum as detected by Doppler. PERICARDIUM There is no pericardial effusion. There is an epicardial fat pad. [facility] Echocardiography Echocardiography Report: Transthoracic Echo [facility] Date of service: 12/24/2023 10:56:13 AM ARTIST Ordering physician: JAY BYRD Indication: Syncope, Tachycardia, PVC's Technologist: Dominguez Pinto [facility] Interpreting physician: Sylvie Romero MD PATIENT: Name: GREGG ZUNIGA : 2000 Age: 23 years Gender: F Primary rhythm: sinus. Secondary rhythm: PVC. Height: 156.20 cm BSA: 1.64 m Weight: 62.01 kg BMI: 25.4 kg/m Heart rate 90 bpm Blood pressure 134/84 mmHg Color Doppler was utilized to interrogate the cardiac valves assessed and spectral Doppler was utilized to determine the flow velocities and pressure gradients reported in this exam. Myocardial strain analysis was performed in this exam to aid in the assessment of cardiac function. MEASUREMENTS: Value Indexed Normal Max aortic dimension 2.5 cm Ao < 3.8 Left atrial volume 50 ml (biplane A-L) 30 ml/m Es <= 34 LV ID (diastole) 4.3 cm (2D) 2.63 cm/m LV ID (systole) 2.8 cm (2D) 1.69 cm/m IVS, leaflet tips 0.7 cm (2D) Posterior wall thickness 0.7 cm (2D) Left ventricular mass 86 g (2D) 52 g/m Global peak long strain -20.9 % LV stroke volume 52 ml (2D biplane) LV end diastolic volume 83 ml (2D biplane) 50.8 ml/m 29<=EDVi<62 LV end systolic volume 31 ml (2D biplane) 18.9 ml/m Ejection Fraction 63 % (2D biplane) EF > 54 FINDINGS: LEFT VENTRICLE The left ventricle is normal in size. Left ventricular systolic function is normal. Global LV myocardial strain is normal. Normal left ventricular diastolic function. Mitral annular lateral E/e': 4.2. Mitral annular septal E/e': 6.2. Wall Motion: All scored segments are normal. RIGHT VENTRICLE The right ventricle is normal in size. Right ventricular systolic function is normal. RV systolic tissue Doppler velocity is 14.0 cm/s. Tricuspid annular displacement is 2.2 cm. Estimated right ventricular systolic pressure is likely underestimated due to a weak or incomplete tricuspid regurgitation signal and is, at least, 28 mmHg consistent with normal pulmonary artery pressures. Estimated right atrial pressure is 3 mmHg based on IVC assessment. LEFT ATRIUM The left atrial cavity is normal in size. RIGHT ATRIUM The right atrial cavity is normal in size. Inferior Vena Cava: The inferior vena cava appears normal measuring 1.5 cm. The vessel decreases greater than 50 percent with inspiration. MITRAL VALVE There is trace mitral valve regurgitation. There is no thickening. The pressure half time is 28 msec. The peak mitral E/A ratio is 1.75. The average mitral E/e' ratio is 5.2. The mitral flow deceleration time is 98 msec. TRICUSPID VALVE The tricuspid valve leaflets are structurally normal. There is trace (trace - 1+) tricuspid valve regurgitation. AORTIC VALVE There is trace aortic valve regurgitation. Tricuspid aortic valve. There is no thickening. PULMONIC VALVE The pulmonic valve was not seen or not interrogated. There is trace pulmonic valve regurgitation. AORTA The visualized aorta is normal in size. Measurements - Mid ascending aorta 2.5 cm. Visualized segments of the ascending, arch, and descending aorta without evidence of dissection. PULMONARY ARTERIES The pulmonary arteries are normal. INTERATRIAL SEPTUM There is no evidence of intracardiac shunting as detected by Doppler. INTERVENTRICULAR SEPTUM There is no flow through the interventricular septum as detected by Doppler. PERICARDIUM There is no pericardial effusion. There is an epicardial fat pad. CONCLUSIONS: - Exam indication: Syncope, Tachycardia, PVC's - The left ventricle is normal in size. Left ventricular systolic function is normal. EF = 63 5% (2D biplane) Normal left ventricular diastolic function. - The right ventricle is normal in size. Right ventricular systolic function is normal. - Estimated right ventricular systolic pressure is likely underestimated due to a weak or incomplete tricuspid regurgitation signal and is, at least, 28 mmHg consistent with normal pulmonary artery pressures. Estimated right atrial pressure is 3 mmHg based on IVC assessment. - The patient has not had a prior CC echocardiographic exam for comparison. * * * Final * * * [facility] [employer] Medical Image : [id number]. [id number] Normal [facility] 12 Lead EKGon 11-01-2023 12 Lead EKG [facility] Cardiovascular Services [address] [place] [address] 12 Lead EKG 11/01/23 1200 MR#: [id number] Acct: [id number] Name: GREGG ZUNIGA Rep #: [id number] : 2000 23 From: Rubio Paulino MD Attending Dr: Status: DEP ER Ordering Dr: Antoine Dodson MD Date: 11/01/23 Location: ED Sex: F C Admitted: Test Reason : Blood Pressure : / mmHG Vent. Rate : 125 BPM Atrial Rate : 125 BPM P-R Int : 152 ms QRS Dur : 082 ms QT Int : 298 ms P-R-T Axes : 065 064 025 degrees QTc Int : 430 ms Sinus tachycardia Borderline ECG Non-specific ST T wave changes POSSIBLY AGE RELATED Confirmed by Rubio Paulino ([id number]), senior editor AGUSTIN MCCLURE ([id number]) on 11/02/2023 8:19:05 AM Referred By: ROCIO Confirmed By:Rubio Paulino 11/02/23818 Date Rubio Paulino MD CC: Dr. Antoine Dodson MD; Dr. Kayleen Mckay MD Signed Normal [facility] Basic Metabolic Profile (BMP )on 11-01-2023 BUN/CRE 6.8 RATIO Low 10-20 [facility] Comment on above: Order Comment: 1Y Performed By: #### L 700.6800, L501.2450 #### [facility] [address] [place], [address] CA,Total 9.3 mg/dL Normal 8.5-10.1 [facility] Comment on above: Order Comment: 1Y Performed By: #### L 700.6800, L501.2450 #### [facility] [address] [place], [address] Chloride [Moles/Vol] 107 mmol/L Normal 98-107 [facility] Comment on above: Order Comment: 1Y Performed By: #### L 700.6800, L501.2450 #### [facility] [address] [place], [address] CO2 [Moles/Vol] 23.0 mmol/L Normal 21.0-32.0 [facility] Comment on above: Order Comment: 1Y Performed By: #### L 700.6800, L501.2450 #### [facility] [address] [place], [address] Creatinine [Mass/Vol] 0.74 mg/dL Normal 0.55-1.02 [facility] Comment on above: Order Comment: 1Y Result Comment: The validity of the calculated GFR GFRAA in patients over 70 years has not been determined. Clinical correlation is essential. Performed By: #### L 700.6800, L501.2450 #### [facility] [address] [place], [address] ECRCL 103.66 ml/min Normal [facility] Comment on above: Order Comment: 1Y Performed By: #### L 700.6800, L501.2450 #### [facility] [address] [place], [address] EST GFR - AA 127 mL/min Normal >60 [facility] Comment on above: Order Comment: 1Y Result Comment: Afri can Citizen [place] GFR Calc Performed By: #### L 700.6800, L501.2450 #### [facility] [address] [place], [address] GAP 7 Normal 5-15 [facility] Comment on above: Order Comment: 1Y Performed By: #### L 700.6800, L501.2450 #### [facility] [address] [place], [address] GFR/1.73 sq M.predicted among non-blacks MDRD (S/P/Bld) [Vol rate/Area] 105 mL/min/{1.73_m2} Normal >60 [facility] Comment on above: Order Comment: 1Y Result Comment: Non- GFR Calc Performed By: #### L 700.6800, L501.2450 #### [facility] [address] [place], [address] Glucose [Mass/Vol] 112 mg/dL High 74-106 [facility] Comment on above: Order Comment: 1Y Result Comment: Fast ing Glucose result from 100 to 125 mg/dL suggests IMPAIRED HOMEOSTASIS per A.D.A. criteria. Performed By: #### L 700.6800, L501.2450 #### [facility] [address] [place], [address] Potassium [Moles/Vol] 3.3 mmol/L Low 3.5-5.1 [facility] Comment on above: Order Comment: 1Y Performed By: #### L 700.6800, L501.2450 #### [facility] [address] [place], [address] Sodium [Moles/Vol] 137 mmol/L Normal 136-145 [facility] Comment on above: Order Comment: 1Y Performed By: #### L 700.6800, L501.2450 #### [facility] [address] [place], [address] Urea nitrogen [Mass/Vol] 5 mg/dL Low 7-18 [facility] Comment on above: Order Comment: 1Y Performed By: #### L 700.6800, L501.2450 #### [facility] [address] [place], [address] CBC W/Diff, Automatedon 08-2 -2023 Absolute Lymph 0.44 X10 3/uL Low 0.83-4.51 [facility] Comment on above: Performed By: #### L 700.6800, L501.2450 #### [facility] [address] [place], [address] Absolute Neut 9.2 X10 3/uL High 2.0-7.7 [facility] Comment on above: Performed By: #### L 700.6800, L501.2450 #### [facility] [address] [place], [address] Basophils/100 WBC (Bld) 0.3 % Normal 0-1 [facility] Comment on above: Performed By: #### L 700.6800, L501.2450 #### [facility] [address] [place], [address] Eosinophils/100 WBC (Bld) 3.5 % Normal 0-5 [facility] Comment on above: Performed By: #### L 700.6800, L501.2450 #### [facility] [address] [place], [address] Erythrocyte distribution width (RBC) [Ratio] 12.2 % Normal 11.6-14.6 [facility] Comment on above: Performed By: #### L 700.6800, L501.2450 #### [facility] [address] [place], [address] Hematocrit (Bld) [Volume fraction] 40.5 % Normal 37-47 [facility] Comment on above: Performed By: #### L 700.6800, L501.2450 #### [facility] [address] [place], [address] Hemoglobin (Bld) [Mass/Vol] 14.1 g/dL Normal 12.0-15.0 [facility] Comment on above: Performed By: #### L 700.6800, L501.2450 #### [facility] [address] [place], [address] IG% 0.200 Normal 0.0-0.9 [facility] Comment on above: Result Comment: IG% - Immature Granulocytes (promyelocytes, myelocytes and metamyelocytes) > 1% indicates that a LEFT SHIFT is Present. Performed By: #### L 700.6800, L501.2450 #### [facility] [address] [place], [address] Lymphocytes/100 WBC (Bld) 4.1 % Low 19-41 [facility] Comment on above: Performed By: #### L 700.6800, L501.2450 #### [facility] [address] [place], [address] MCH (RBC) [Entitic mass] 29.9 pg Normal 27.0-32.0 [facility] Comment on above: Performed By: #### L 700.6800, L501.2450 #### [facility] [address] [place], [address] MCHC (RBC) [Mass/Vol] 34.8 g/dL Normal 32-36 [facility] Comment on above: Performed By: #### L 700.6800, L501.2450 #### [facility] [address] [place], [address] MCV (RBC) [Entitic vol] 86.0 fL Normal 81-99 [facility] Comment on above: Performed By: #### L 700.6800, L501.2450 #### [facility] [address] [place], [address] Monocytes/100 WBC (Bld) 6.3 % Normal 0-10 [facility] Comment on above: Performed By: #### L 700.6800, L501.2450 #### [facility] [address] [place], [address] Neutrophils/100 WBC (Bld) 85.6 % High 47-70 [facility] Comment on above: Performed By: #### L 700.6800, L501.2450 #### [facility] [address] [place], [address] Nucleated RBC (Bld) [#/Vol] 0 10*3/uL Normal 0-5 [facility] Comment on above: Performed By: #### L 700.6800, L501.2450 #### [facility] [address] [place], [address] Platelet mean volume (Bld) [Entitic vol] 9.6 fL Normal 6.2-12.0 [facility] Comment on above: Performed By: #### L 700.6800, L501.2450 #### [facility] [address] [place], [address] Platelets (Bld) [#/Vol] 274 10*3/uL Normal 150-450 [facility] Comment on above: Performed By: #### L 700.6800, L501.2450 #### [facility] [address] [place], [address] RBC (Bld) [#/Vol] 4.71 10*6/uL Normal 4.2-5.4 [facility] Comment on above: Performed By: #### L 700.6800, L501.2450 #### [facility] [address] [place], [address] RDW SD 38.5 fl Normal 35.1-43.9 [facility] Comment on above: Performed By: #### L 700.6800, L501.2450 #### [facility] [address] [place], [address] WBC (Bld) [#/Vol] 10.7 10*3/uL Normal 4.4-11.0 [facility] Comment on above: Performed By: #### L 700.6800, L501.2450 #### [facility] [address] [place], [address] Chest 1 View (Portable)on Chest 1 View (Portable) [facility] Imaging Services [address] [place] [address] Chest 1 View (Portable) MR#: [id number] Acct: [id number] Name: GREGG ZUNIGA Rep #: [id number] : 2000 F 23 From: Neville Cardenas MD PCP: Dr. Kayleen Mckay MD Status: [facility] ER Study: Chest 1 View (Portable) Date of Exam: 11/01/23 Exam# [id number] Ordering Dr: Antoine Dodson MD [id number] STUDY: X-RAY CHEST REASON FOR EXAM: Female, 23 years old. chest pain TECHNIQUE: Single AP portable view of the chest. COMPARISON: 02/15/2021 FINDINGS: EKG leads overlie the chest The lungs are clear and expanded. There is no demonstrated pleural abnormality. Normal size heart. Normal mediastinum and yonny. Normal visualized pulmonary arteries. Normal visualized aortic arch and descending thoracic aorta. Normal visualized thoracic spine. Normal visualized ribs, clavicles, and shoulders. There is no demonstrated abnormality of the visualized soft tissue structures of the upper abdomen. RAD/Chest 1 View (Portable) IMPRESSION: Normal x-ray examination of the chest. Electronically Signed: Darío Cardenas MD at 13:07 EDT , CC: Dr. Antoine Dodson MD; Dr. Kayleen Mckay MD [employer] Body Customizer: Signed Normal [facility] D-Dimer Quantitative (DVT/PE )on 11-01-2023 D-DIMER QUANT < 0.27 Low 0.27-0.49 [facility] Comment on above: Result Comment: NORM AL D-Dimer level (<0.50) indicates no DVT or PE. Performed By: #### L 700.6800, L501.2450 #### [facility] [address] [place], [address] Emergency Department Summary on 11-01-2023 Emergency Department Summary [facility] Medical Records Department [address] [place] [address] Emergency Department Summary 11/01/23 MR#: [id number] Acct: [id number] Name: GREGG ZUNIGA Rep #: [id number] : 2000 23 From: Antoien Dodson MD PCP: Dr. 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 She states it may have started yesterday but did not feel as bad as when she woke up today. No exacerbating or alleviating factors. And may be pleuritic but she denies any leg swelling. No recent fevers or chills, no cough. She was nauseated and vomited twice in association with the pain. She denies any diaphoresis. No DVT or PE risk factors. Non-smoker. [facility] Medical History Physical exam, pre-employment Palpitations Chest pain PVCs (premature ventricular contractions) Cephalgia Contact with and (suspected) exposure to other viral communicable diseases Strain of right knee Home Medications ???Medication ???Instructions ???Recorded ???Last Taken ???Type norgestimate 0.25 mg-ethinyl 1 ea PO QHS 10/15/18 Unknown History estradiol 35 mcg tablet acetaminophen 325 mg tablet 325 mg PO ONCE PRN fever or pain 12/08/21 Unknown History (Tylenol) bisoprolol fumarate 5 mg tablet 5 mg PO DAILY #30 tabs 08/10/23 Unknown Rx fexofenadine 180 mg tablet 180 mg PO DAILY PRN 08/10/23 Unknown History (Raquel Allergy) prednisone 10 mg tablet 10 mg PO DAILY #18 tabs 10/23/23 Unknown Rx Allergy/AdvReac Type Severity Reaction Status Date / Time lactose Allergy Mild Unknown Verified 11/01/23 11:55 adhesive (adhesives) AdvReac Severe Rash Verified 11/01/23 11:55 Family History Grandmother Heart disease Parkinsons Cancer Grandfather Cancer Surgical History Hx of arthroscopy of right knee Social History Smoking Status: Never smoker alcohol intake: never substance use type: does not use caffeine: Yes ROS ROS ED ROS Narrative Constitutional: No fever, no chills. HEENT: No sore throat. No neck pain. No loss of vision. No rhinorrhea. Cardiovascular: Positive diffuse chest pain. No palpitations. No pedal edema. Respiratory: No cough, no shortness of breath. Abdominal: No abdominal pain. Positive nausea and vomiting. Genitourinary: No dysuria. No hematuria. Musculoskeletal: No myalgias. No arthralgias. Neurologic: No headaches. No dizziness. No lightheadedness. Skin: No rash. No change in color. Psychiatric: No depression. No anxiety. EXAM Physical Exam Narrative Exam Narrative: Afebrile. Vital signs noted. HEENT: Normocephalic. Atraumatic. PERRL, EOMI. Neck soft and supple. No point tenderness or step off. Cardiovascular: Positive tachycardia no murmurs, rubs, or gallops appreciated. Respiratory: No tachypnea. Lungs clear to auscultation bilaterally. Gastrointestinal: Abdomen soft, nontender, with normoactive bowel sounds. No rebound or guarding. Neurological: Awake. Alert. Nonfocal, nonlateralizing. Skin: No rash. Normal color. No pallor. Musculoskeletal: No pedal edema. Full range of motion extremities. Const Vital Signs: 11/01/23 11:55 11/01/23 11:55 11/01/23 12:30 Temperature 96.9 F L Temperature Source Temporal Pulse Rate 133 H 131 H Respiratory Rate 12 16 Blood Pressure 120/81 H 118/78 Blood Pressure Mean 94 91 Pulse Ox 96 96 Oxygen Delivery Method Room Air Room Air Room Air 11/01/23 13:55 11/01/23 15:00 11/01/23 16:55 Temperature 97 F L Temperature Source Pulse Rate 126 H 110 H 100 Respiratory Rate 14 13 17 Blood Pressure 132/89 H 127/73 H 124/89 H Blood Pressure Mean 103 91 100 Pulse Ox 96 96 96 Oxygen Delivery Method Room Air Room Air Heart Score History: Slightly/Non-Suspici ous ECG: Normal Age: Risk Factors: No Risk Factors Troponin: Score: 0 MDM MDM MDM Narrative Medical decision making narrative: Differential diagnosis includes but not limited to ACS versus pulmonary embolism versus pneumothorax versus pneumonia versus anxiety. I have lower suspicion for the latter 2 diagnoses because history and physical does not support this. She states she already took her beta-reuben. EKG was obtained and interpreted by myself independently as sinus tachycardia at 125 bpm without ectopy or acute ST changes. No STEMI. I reviewed her laboratory work and she has normal white count of 10. (more content not included)... Normal [facility] L501.4020on 11-01-2023 TROPONIN-I HS 4 pg/mL Normal 3.0-54.0 [facility] Comment on above: Result Comment: Bacilio casarez Note: New Test Units and Gender Specific Reference Ranges. For more information see Policy Stat Procedure [place] High Sensitivity Troponin (TNIH) and attachments. Performed By: #### L 501.4020 #### [facility] [address] [place], [address] Order Comment: 1Y Performed By: #### L 700.6800, L501.2450 #### [facility] [address] [place], [address] Lipaseon 11-01-2023 Lipase [Catalytic activity/Vol] 15 U/L Normal 13-75 [facility] Comment on above: Result Comment: Bacilio casarez note: LIPASE revised reference range effective 22. New Lipase methodology. Expected to produce lower values than the previous assay method. NEW Reference Range: 13 - 75 U/L Performed By: #### L 700.6800, L501.2450 #### [facility] [address] [place], [address] Magnesiumon 11-01-2023 Magnesium [Mass/Vol] 1.8 mg/dL Normal 1.6-2.6 [facility] Comment on above: Order Comment: 1Y Performed By: #### L 700.6800, L501.2450 #### [facility] [address] [place], [address] ,Serum,hCG Quali.on 11-01-2023 HCG, SERUM QUAL Negative Normal [facility] Comment on above: Performed By: #### L 700.6800, L501.2450 #### [facility] [address] [place], [address] Urinalysis, Completeon 10-31 BACTERIA 1+ /hpf Normal None Seen [facility] Comment on above: Order Comment: CLEAN CATCH Performed By: #### L 700.6800, L501.2450 #### [facility] [address] [place], [address] EPI,SQUAMOUS 5-10 SEEN Normal 5-10 [facility] Comment on above: Order Comment: CLEAN CATCH Performed By: #### L 700.6800, L501.2450 #### [facility] [address] [place], [address] Mucus Ql (Urine sed) 0 SEEN Normal [facility] Comment on above: Order Comment: CLEAN CATCH Performed By: #### L 700.6800, L501.2450 #### [facility] [address] [place], [address] RBC 0 SEEN Normal 0-5 [facility] Comment on above: Order Comment: CLEAN CATCH Performed By: #### L 700.6800, L501.2450 #### [facility] [address] [place], [address] WBC 0 SEEN Normal 0-5 [facility] Comment on above: Order Comment: CLEAN CATCH Performed By: #### L 700.6800, L501.2450 #### [facility] [address] [place], [address] Urgent Care Visit Reporton 0 10-23-2023 Urgent Care Visit Report [facility] [address], [address] [place] [address] OFFICE VISIT Date of Service: 10/23/23 MR#: [id number] Acct: [id number] Name: GREGG ZUNIGA #: [id number] : 2000 Provider: ARDEN Berkowitz Age/Sex: 23/F Location: [facility] Status: Signed Intake Vital Signs 08/10/23 10:41 10/23/23 10:51 Height 5 ft 1 in Weight: 142 lb BMI 26.8 BP 129/83 H 128/78 H Blood Pressure Location Rt brachial Lt brachial Position Sitting Sitting Respiration 16 14 Pulse 94 80 Pulse Source Monitor NIBP Temp 98.7 F Temp Source Temporal Pulse Oximetry (%) 97 98 Oxygen Delivery Method room air room air Intake Visit Reasons: RASH/CONCREN FOR BITE Chief Complaint: rash 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 also peeling to several fingertips. had been in high weeds and wooded area night prior to rash starting, concern for spider bite. tried triamcinolone cream and bendadryl without relief. [facility] Medical History (Updated 10/17/23 @ 16:05 by ARDEN Barger) Physical exam, pre-employment Palpitations Chest pain PVCs (premature ventricular contractions) Cephalgia Contact with and (suspected) exposure to other viral communicable diseases Strain of right knee Surgical History Hx of arthroscopy of right knee Family History Grandmother Heart disease Parkinsons Cancer Grandfather Cancer Social History Smoking Status: Never smoker alcohol intake: never substance use type: does not use caffeine: Yes HPI HPI Chief Complaint: rash Details: GREGG ZUNIGA, is a 23 F who presents to the office today for initial evaluation pruritic hive-like rash to anterior CW, BUE, BLE as well as skin peeling to bilateral thumbs and index finger palmar DPs. Patient states she has used multiple hiow-wez-fyumvbl topical applications as well as oral Benadryl without relief of symptoms. No complaints of constricted/pruritic airway or chest pain/shortness of breath/wheeze/dyspne a on exertion. No other associated symptoms and no other alleviating/aggravat ing factors. ROS Const Constitutional: No other (As above) Exam Const General: cooperative, healthy appearing and no acute distress Nutritional Appearance: average body habitus Orientation: alert, awake and oriented x3 HENMT Head: normal to inspection Ears: hearing grossly normal bilaterally, external ears normal, TM's normal bilaterally and EAC's normal Nose: external nose normal, nares normal, septum normal and no nasal discharge Face and sinus: normal facial exam, sinuses nontender and face symmetric Mouth: oral mucosae normal, lip normal, tongue normal and oropharynx normal Throat: posterior oropharynx normal, tonsils normal, uvula midline and no postnasal drainage Eyes General: appearance normal, both eyes and all related structures Neck Neck: normal visual inspection, full ROM, no lymphadenopathy, no meningeal signs and supple Neck mass: No Thyroid: thyroid normal Lymphatic: no lymphadenopathy noted Chest Chest palpation inspection: normal inspection of the chest Resp Effort Inspection: normal respiratory effort and able to speak in complete sentences Auscultation: Bilateral: Clear to Auscultation Cardio Palpation: normal PMI Rate: regular rate Rhythm: regular rhythm Heart Sounds: S1 normal, S2 normal, no gallops, no murmurs and no rubs Pulses: radial pulses present GI Inspection: normal to inspection Skin General: no rashes or lesions noted Other: Except hive-like rash to anterior CW, BUE, BLE as well as skin peeling to bilateral thumbs and index finger palmar DPs Neuro General: patient alert, patient awake and patient oriented x3 Cognition: normal cognition Speech: speech normal Extrem General: normal to inspection Psych Appearance: grossly normal Mental Status: mental status grossly normal Mood: congruent mood Affect: normal affect Speech and Movement: speech and movement normal Attitude: cooperative Diagnoses Contact dermatitis L23.9 Assessment and Plan Assessment and Plan (1) Contact dermatitis: Status: Acute Plan: Prednisone as prescribed today. Supportive measures as instructed today. Follow-up with PCP in 3 to 5 days should symptoms not improve, ED sooner should symptoms (more content not included)... Normal [facility] Urgent Care Visit Reporton 0 10-17-2023 Urgent Care Visit Report [facility] [address] [place] [address] OFFICE VISIT Date of Service: 10/17/23 MR#: [id number] Acct: [id number] Name: GREGG ZUNIGA Rep #: [id number] : 2000 Provider: ARDEN Berkowitz Age/Sex: 23/F Location: [facility] Status: Signed Intake Vital Signs 08/10/23 10:41 Height 5 ft 1 in Weight: 142 lb BMI 26.8 BP 129/83 H Blood Pressure Location Rt brachial Position Sitting Respiration 16 Pulse 94 Pulse Source Monitor Pulse Oximetry (%) 97 Oxygen Delivery Method room air Intake Visit Reasons: WORK PHYSICAL/SELF PAY Chief Complaint: sore throat Allergies lactose Allergy (Mild, Verified 08/10/23 11:28) Unknown adhesive (adhesives) Adverse Reaction (Severe, Verified 08/10/23 11:28) Rash [facility] Medical History (Updated 10/17/23 @ 16:05 by Nilton HER, PA) Physical exam, pre-employment Palpitations Chest pain PVCs (premature ventricular contractions) Cephalgia Contact with and (suspected) exposure to other viral communicable diseases Strain of right knee Surgical History Hx of arthroscopy of right knee Family History Grandmother Heart disease Parkinsons Cancer Grandfather Cancer Social History Smoking Status: Never smoker alcohol intake: never substance use type: does not use caffeine: Yes HPI HPI Chief Complaint: sore throat Details: GREGG ZUNIGA, is a 23 F who presents to the office today for Office Procedures Physical Exam Coding PE Coding Pre-employment PE: Yes Coding Level of Care Code No Charge Diagnoses Physical exam, pre-employment Z02.1 Assessment and Plan Assessment and Plan (1) Physical exam, pre-employment: Status: Acute 10/17/23 1606 Date Nilton Adan Signature: Date (if applicable) CC: Normal [facility] 12 Lead EKG performed by [facility] on 08-10-2023 12 Lead EKG performed by [facility] [address] [place] [address] 12 Lead EKG performed by [facility] 08/10/2310 MR#: [id number] Acct: [id number] Name: KENIAGREGG BUTTERFIELD Rep #: [id number] : 2000 23 From: Rubio Paulino MD Attending Dr: Dr. Rubio Paulino MD Status: DE P AMB Ordering Dr: Rubio Paulino MD Date: 08/10/23 Location: [facility] Sex: F C Admitted: [facility]12 Lead EKG performed by [facility] ECG Report Interpretation ------Sinus Rhythm -RSR(V1) -probably normal for age. PROBABLY NORMAL FOR AGEElectronically signed on 08/10/2023 at 13:[address] Rubio Paulino [employer] Version 8610 08/10/23 1318 Date Rubio Paulino MD CC: Dr. Kalyeen Mckay MD Date Dictated: 08/10/23809 Date Transcribed: 08/10/23809 Automobile Body Customizer: Signed Normal [facility] Cardiology Visit Reporton Cardiology Visit Report [facility] [address] [place] [address] OFFICE VISIT Date of Service: 08/10/23 MR#: [id number] Acct: [id number] Name: GREGG ZUNIGA Rep #: [id number] : 2000 Provider: Dr. Rubio palomino MD Age/Sex: 23/F Location: [facility] Status: Signed [facility] History of Present Illness Details: The patient comes in today for new patient visit. She is a pleasant 23-year-old white female with a history of palpitations and chest pain. She has been [facility] at [facility] by Dr. 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 She had Holter monitor that correlated her chest pain with PVCs. In July 2020 right after she had COVID the patient had 8.1% PVC burden on her Holter monitor. This correlated with her chest pain. She had no couplets or ventricular tachycardia. The patient had this repeated a couple times and was placed on metoprolol 12.5 mg twice daily. Monitoring done on metoprolol showed a 1.3% PVC burden. This was done May 02, 2023. However, the metoprolol made the patient feel tired and wiped out all the time and she discontinued it. The patient also had an echocardiogram done July 14, 2020 which was read as normal coronary anatomy normal left and right ventricular size wall thickness and systolic function and diastolic indexes. This was read as a completely normal echo. EKG in the office today shows normal sinus rhythm with an RSR prime consistent with her age and is otherwise normal. The patient reports that when she tries to walk she feels the PVCs and gets chest pain she occasionally gets dizzy but is never passed out and denies any syncopal spells. She does report that she has had multiple Holter's in each time developed a rash under the adhesive pads. She had pictures on her iPhone depicting a papular erythematous rash. She also has EKG capabilities on her iPhone and is captured 3 EKGs from May to July of 2023. She felt that she was having palpitations at the time but all 3 of these 30 decond rhythm strips show sinus rhythm and no PVCs. 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 She reports that the symptoms did not begin until after she had COVID in 2020. 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 Accompanied by: Grandmother Is patient in pain?: No Allergies lactose Allergy (Mild, Verified 08/10/23 11:28) Unknown adhesive (adhesives) Adverse Reaction (Severe, Verified 08/10/23 11:28) Rash Medications ???Medication ???Instructions ???Recorded ???Confirmed ???Type norgestimate 0.25 mg-ethinyl 1 ea PO QHS 10/15/18 08/10/23 History estradiol 35 mcg tablet acetaminophen 325 mg tablet 325 mg PO ONCE PRN fever or pain 12/08/21 08/10/23 History (Tylenol) bisoprolol fumarate 5 mg tablet 5 mg PO DAILY #30 tabs 08/10/23 08/10/23 Rx fexofenadine 180 mg tablet 180 mg PO DAILY PRN 08/10/23 08/10/23 History (Raquel Allergy) PFSH Medical History Palpitations Chest pain PVCs (premature ventricular contractions) Cephalgia Contact with and (suspected) exposure to other viral communicable diseases Strain of right knee Surgical History Hx of arthroscopy of right knee Family History Grandmother Heart disease Parkinsons Cancer Grandfather Cancer Social History Smoking Status: Never smoker alcohol intake: never substance use type: does not use caffeine: Yes ROS Const Const: Positive for fatigue; Negative for weakness ENT ENT: Negative for dizziness or balance problems Cardio Chest Pain: Yes Palpitations: Yes Edema: None Muscle aches with walking: None Resp Respiratory: Negative for SOB with activity, SOB at rest or SOB orthopnea SOB lying down GI GI: Negative nausea, vomiting or heartburn Musc Musc: Negative for muscle weakness or balance problems Neuro Neuro: Negative for dizziness, lightheadedness, near syncope, syncope or weakness Endo Endo: Positive for fatigue Cardiology Exam Const Appearance: cooperative, healthy appearing, comfortable, no acute distress and well developed Appears much younger than her stated age. Head Head: normal to i (more content not included)... Normal [facility] Progress Noteon 05-02-2023 Tin Dipper Authentication Interface Message Text We had the pleasure of seeing Gregg Zuniga in the Heart Center at [facility] on May 02, 2023. As you know, Gregg is a 23 y.o. female seen in follow-up for premature ventricular complexes. She was last seen on July 26, 2022 and presents today for scheduled follow-up. Gregg notes infrequent palpitations and chest pain since beginning metoprolol following her last visit. There has been no syncope. There has been no significant interval illness. Past medical history was reviewed and is significant for anxiety, allergic rhinitis, and the above mentioned premature ventricular complexes. Current medications are metoprolol 12.5 mg daily, hydrocortisone ointment, RONNIE and Xyzal. There is an allergy to lactose. On review of systems, 10 of 14 systems were reviewed and were negative other than noted above. Family history was reviewed and is negative for congenital heart disease, premature coronary artery disease, and sudden . On review of social history Gregg lives in [place], [place]. 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 Physical exam showed: Weight - Scale: 64 kg Height: (!) 154.6 cm. Heart rate was 92 beats per minute, respiratory rate was 20 breaths per minute, and blood pressure was 134/85 mmHg. In general, Gregg is acyanotic, well developed, well nourished, and in no acute distress. HEENT exam revealed that mucous membranes are moist. There is no thyromegaly or cervical lymphadenopathy. Respirations are comfortable. There is no use of accessory muscles. There are no retractions. Auscultation reveals good air movement bilaterally without wheezes, rales, or rhonchi. On palpation of the precordium, there are no lifts, heaves, or thrills. Auscultation reveals an irregular rate and irregular rhythm with a normal S1 andphysiologically split S2. There is no ejection click. There is no murmur, gallop, or rub. Radial and posterior tibial pulses are 2+, with no delay. Abdomen is soft, non-tender, and non-distended. There is no abdominal bruit. Liver is not palpable. Spleen is not palpable. Extremity exam reveals no cyanosis, clubbing, or edema. Extremities are warm and well perfused. Neurologic exam is grossly intact. There are no rashes or bruises on skin exam. A 12-lead ECG performed today that I personally reviewed demonstrated sinus rhythm with frequent isolated premature ventricular complexes and a ventricular rate of 86, AR interval of 147 msec, QRS duration of 68 msec, QTc of 425 msec, QRS axis of +68 degrees, no atrial enlargement, no ventricular hypertrophy, and no ST/T changes. DIAGNOSES: 1. Chest pain. 2. Premature ventricular complexes. A. 8.1%, no couplets or ventricular tachycardia. Correlating with chest pain (Holter monitor July 14, 2020). B. 4.5%, no couplets or ventricular tachycardia. (Holter monitor January 19, 2021). C. 6.8%, no couplets or ventricular tachycardia. Correlating with chest pain (Holter monitor December 28, 2021). D. 4.4%, no couplets or ventricular tachycardia. Correlating with chest pain (Holter monitor July 26, 2022). E. Normal echocardiogram. ASSESSMENT: Gregg is a 23 y.o. female with frequent premature ventricular complexes and chest pain correlating with her ventricular ectopy. Her symptoms have improved with beta blockade. A repeat Holter monitor was provided today to reassess the degree of ventricular ectopy. RECOMMENDATIONS: 1. Continue primary medical care as directed. 2. Continue metoprolol 12.5 mg daily.. SBE prophylaxis is not indicated. 3. No activity restrictions from a cardiovascular perspective. 4. No restrictions or special requirements for anesthesia from a cardiovascular perspective. 5. [facility] As Gregg is 23 years of age, she should transition to general adult cardiology for follow-up within the next year. Total encounter time was 20 minutes, which includes chart review, counseling, documentation and/or coordination of care. Normal [facility] Progress Noteon 04-25-2023 Tin Dipper Authentication Interface Message Text Patient ID: Gregg Zuniga is a 23 y.o. female. Her chief complaint(s) include: 21+ YEAR WELL CHILD (Skin dryness. OTC lotions dont seem to help) Assessment 1. Routine general medical examination at a health care facility 2. Eczema, unspecified type 3. PVC's (premature ventricular contractions) 4. Chest pain, unspecified type 5. Dysmenorrhea 6. Nonintractable headache, unspecified chronicity pattern, unspecified headache type Plan Gregg was seen today for 23+ year well child. Diagnoses and associated orders for this visit: Routine general medical examination at a health care facility - Hearing Screening - PHQ9 Assessment With Score - Health Risk Assessment - YOVANIT Eczema, unspecified type - hydrocortisone 2.5 % ointment; Apply to affected area 2 times daily for 7 days Apply thin film to affected areas PVC's (premature ventricular contractions) Chest pain, unspecified type Dysmenorrhea Nonintractable headache, unspecified chronicity pattern, unspecified headache type Return in about 1 year (around 04/25/2024) for well check. Gregg is doing well overall. Passed hearing screening. Follows with the eye doctor and is getting new glasses soon. To call/follow up if headaches are not improving once she gets her new glasses (seem most likely due to eye straining at this time). Discussed eczema- recommended frequent application of unscented lotion to area (each time she washes her hands). Can also use hydrocortisone cream as needed for flares. Will continue on OCP for dysmenorrhea; she is doing well. Instructed to schedule follow up with cardiology since she is overdue. Discussed anticipatory guidance for age, starting transition to adult/family practice physician since she is 23. Work forms completed. Subjective HPI Comments: Right index finger area gets dry and cracked- using aquaphor, vaseline, o'keefes- nothing is helping. More headaches recently- needs new bifocals (waiting on them to come in the mail). Getting a headache after she has to focus for awhile. Still having some chest pains- better since starting metoprolol; still having a little pain. Needs cardiology follow up. She is unaccompanied. 21+ YEAR WELL CHILD Home: Gregg has an adult to turn to for help and is permitted and able to make independent decisions. Education: Gregg is a highschool graduate. (Going to start working at [employer]. Was working at [employer]). Eating: Gregg eats regular meals including fruits and vegetables and has a calcium source (calcium gummies, almond milk). Activities & Sports: Gregg has friends and has a job. (likes spending time with family and dogs). Drugs: Gregg uses alcohol (occasional). Gregg does not use tobacco, does not use drugs and does not vape. Safety: Gregg has a violence free home and has peer relationships free from violence. Sex: The patient has never had a sexual partner. The patient is interested in males (dating her boyfriend for almost 2 years, talking about engagement). Suicidality: Gregg has no depression and has no anxiety. PHQ-9 Score: 1 Menstruation Last Menstrual period: LMP from Vitals Patient's last menstrual period was 04/25/2023 (exact date).. (Taking OCP (had very heavy periods prior to starting OCP), no issues.) Menstruation: regular periods Output Urine and Stool Pattern: Urine and Stool Pattern: Normal stool pattern, normal urine pattern. Sleep Sleeping Difficulty: no difficulty sleeping Teen Anticipatory Guidance The following anticipatory guidance was reviewed during the visit: Nutrition: limit junk food/fast food and soft drinks. Health: age appropriate dental care, age appropriate sleep habits and talk with trusted adult if feeling sad or nervous. Screenings Life events information was reviewed-no referral needed (social determinants screen negative) Hearing Vision Concerns: The caregiver has no concerns about the patient's hearing. The caregiver has no concerns about the patient's vision. Primary Care Review of Systems Objective Vital Signs 04/25/23 1349 04/25/23 1359 BP: 134/89 119/80 Pulse: 90 Temp: 37.2 C (98.9 F) TempSrc: Temporal Weight: 64 kg Height: (!) 155.5 cm Body mass index is 26.47 kg/m . Physical Exam Constitutional: She appears well. She is active. No distress. HENT: Head: Atraumatic. Ears: Right Ear: Tympanic membrane and external ear normal. Left Ear: Tympanic membrane and external ear normal. Nose: Nose normal. No nasal deformity or nasal discharge. Mouth/Throat: Mucous membranes are moist. Dentition is normal. No pharynx erythema. Oropharynx is clear. Eyes: EOM are normal. Pupils are equal, round, and reactive to light. Right eyelid exhibits no discharge. Left eyelid exhibits no discharge. Right conjunctiva is not injected. Left conjunctiva is not injected. Neck: Neck supple. Cardiovascular: Normal rate, regular rhythm, S1 normal and S2 (more content not included)... Invalid Interpretation Code [facility] Absolute lymphocyte countOrd ered By: Thea Luque on 10-22-2022 Lymphocytes Auto (Unsp spec) [#/Vol] 2.68 10*3/uL 0.83-4.51 [facility] Basophil percentageOrdered B y: Thea Luque on 10-22-2022 Basophil percentage 5-10 SEEN /hpf 0-5 [facility] Basophils/100 WBC (Bld) 0.4 % 0-1 [facility] Chloride [Moles/Vol] 109 mmol/L 98-107 [facility] Eosinophils/100 WBC (Bld) 2.0 % 0-5 [facility] Glucose [Mass/Vol] 113 mg/dL 74-106 [facility] Comment on above: Fasting Glucose resu lt from 100 to 125 mg/dL suggests IMPAIRED HOMEOSTASIS per A.D.A. criteria. Lactate [Moles/Vol] 1.1 mmol/L 0.4-2.0 [facility] Neutrophils (Bld) [#/Vol] 9.4 10*3/uL 2.0-7.7 [facility] Neutrophils/100 WBC (Bld) 70.5 % 47-70 [facility] Potassium [Moles/Vol] 3.3 mmol/L 3.5-5.1 [facility] Sodium [Moles/Vol] 139 mmol/L 136-145 [facility] WBC (Bld) [#/Vol] 13.3 10*3/uL 4.4-11.0 [facility] Beta hCG serum qualOrdered B y: Thea Luque on 10-22-2022 Beta HCG ( test) Ql Negative [facility] Bilirubin Test strip Ql (U)O rdered By: Thea Luque on 10-22-2022 Bilirubin Ql (U) 1 mg/dL Negative [facility] Comment on above: COLOR OF URINE MAY A FFECT DIPSTICK RESULTS. Blood erythrocytes count (nu mber/volume)Ordered By: Thea Luque on 10-22-2022 RBC (Bld) [#/Vol] 4.81 10*6/uL 4.2-5.4 [facility] Blood hemoglobin measurement (mass/volume)Ordered By: Thea Luque on 10-22-2022 Hemoglobin (Bld) [Mass/Vol] 14.1 g/dL 12.0-15.0 [facility] Blood lymphocytes/100 leukoc ytesOrdered By: Thea Luque on 10-22-2022 Lymphocytes/100 WBC (Bld) 20.1 % 19-41 [facility] Blood monocytes/100 leukocyt esOrdered By: [facility] on 10-22-2022 Monocytes/100 WBC (Bld) 6.5 % 0-10 [facility] Blood platelet mean volumeOr dered By: Thea Luque on 10-22-2022 Platelet mean volume (Bld) [Entitic vol] 10.7 fL 6.2-12.0 [facility] Determination of erythrocyte mean corpuscular volume (MCV)Ordered By: Thea Luque on 10-22-2022 MCV (RBC) [Entitic vol] 87.1 fL 81-99 [facility] Hematocrit Auto (Bld) [Volum e fraction]Ordered By: Thea Luque on 10-22-2022 Hematocrit (Bld) [Volume fraction] 41.9 % 37-47 [facility] Ketones Test strip Ql (U)Ord ered By: Thea Luque on 10-22-2022 Ketones Ql (U) 150 mg/dl Negative [facility] Comment on above: CRITICAL VALUE *HCRI TICAL VALUE VERIFIED. CALLED TO ORLIN ESTRADA10/22/[id number] Nancy Guzman.RESULTS READ BACK BY SAME . Laboratory - Chemistry and C hemistry - challengeOrdered By: Thea Luque on 10-22-2022 CO2 [Moles/Vol] 21.0 mmol/L 21.0-32.0 [facility] Urea nitrogen/Creatinine [Mass ratio] 11.8 mg/mg 10-20 [facility] Laboratory - Hematology and Cell countsOrdered By: Thea Luque on 10-22-2022 Erythrocyte distribution width (RBC) [Entitic vol] 38.5 fL 35.1-43.9 [facility] Erythrocyte distribution width (RBC) [Ratio] 12.1 % 11.6-14.6 [facility] Immature granulocytes/100 WBC (Bld) 0.500 % 0.0-0.9 [facility] Comment on above: IG% - Immature Granu locytes (promyelocytes, myelocytes and metamyelocytes) > 1% indicates that a LEFT SHIFT is Present. MCH (RBC) [Entitic mass] 29.3 pg 27.0-32.0 [facility] Nucleated RBC/100 WBC (Bld) [Ratio] 0 % 0-5 [facility] MCHC Auto (RBC) [Mass/Vol]Or dered By: Thea Luque on 10-22-2022 MCHC (RBC) [Mass/Vol] 33.7 g/dL 32-36 [facility] Mucus LM Ql (Urine sed)Order ed By: Thea Luque on 10-22-2022 Mucus Ql (Urine sed) 1+ /hpf [facility] Nitrite Test strip Ql (U)Ord ered By: Thea Luque on 10-22-2022 Nitrite Ql (U) Negative Negative [facility] No Panel InformationOrdered By: Thea Luque on 10-22-2022 Estimated Creatinine Clearance Calc 66.39 ml/min [facility] Estimated GFR (MDRD) Amer 88 mL/min >60 [facility] Comment on above: GFR Calc Estimated GFR (MDRD) Non-Af Amer 73 mL/min >60 [facility] Comment on above: Non- GFR Calc Platelets bldOrdered By: Tanya Luque on 10-22-2022 Platelets (Bld) [#/Vol] 418 10*3/uL 150-450 [facility] Protein Test strip Ql (U)Ord ered By: Thea Luque on 10-22-2022 Protein Ql (U) 100 mg/dl Negative [facility] Serum or plasma calcium noa urement (mass/volume)Ordered By: Thea Luque on 10-22-2022 Calcium [Mass/Vol] 9.6 mg/dL 8.5-10.1 [facility] Serum or plasma creatinine m easurement (mass/volume)Ordered By: Thea Luque on 10-22-2022 Creatinine [Mass/Vol] 1.02 mg/dL 0.55-1.02 [facility] Comment on above: The validity of the calculated GFR & GFRAA in patients over 70 years has not been determined. Clinical correlation is essential. Serum or plasma urea nitroge n measurement (mass/volume)Ordered By: Thea Luque on 10-22-2022 Urea nitrogen [Mass/Vol] 12 mg/dL 7-18 [facility] Squamous epithelial cells de tection in urine sediment by light microscopyOrdered By: Thea Luque on 10-22-2022 Epithelial cells.squamous LM Ql (Urine sed) 0-5 SEEN /hpf 5-10 [facility] Thin prep Papanicolaou smear with manual screeningOrdered By: Thea Luque on 10-22-2022 Thin prep Papanicolaou smear with manual screening 9 5-15 [facility] Urine blood detectionOrdered By: Thea Luque on 10-22-2022 RBC Ql (U) 250 /ul Negative [facility] RBC Ql (U) 10-25 SEEN /hpf 0-5 [facility] Urine clarityOrdered By: Tanya Luque on 10-22-2022 Clarity (U) Cloudy Clear [facility] Urine color determinationOrd ered By: Thea Luque on 10-22-2022 Color (U) Brown Yellow [facility] Urine glucose detectionOrder ed By: Thea Luque on 10-22-2022 Glucose Ql (U) Normal mg/dl Normal [facility] Urine leukocyte esterase det ection by dipstickOrdered By: Thea Luuqe on 10-22-2022 Leukocyte esterase Test strip Ql (U) 100 /ul Negative [facility] Urine pHOrdered By: Thea Pendleton gur on 10-22-2022 pH (U) 7.0 [pH] 5.0 - 8.0 [facility] Urine sediment bacteria coun t by microscopy (number/high power field)Ordered By: Thea Luque on 10-22-2022 Bacteria LM.HPF (Urine sed) [#/Area] 2 /[HPF] None Seen [facility] Urine specific gravity measu rementOrdered By: Thea Luque on 08-20-2023 Specific gravity (U) [Rel density] 1.015 1.002-1.030 [facility] Urobilinogen Auto test strip Ql (U)Ordered By: Teha Luque on 10-22-2022 Urobilinogen Ql (U) 12 mg/dl Normal [facility] Progress Noteon 07-26-2022 Tin Dipper Authentication Interface Message Text We had the pleasure of seeing Gregg Zuniga in the Heart Center at [facility] on July 26, 2022. As you know, Gregg is a 22 y.o. female seen in follow-up for chest pain and premature ventricular complexes. She was last seen on December 28, 2021 and presents today for scheduled follow-up. Gregg reports worsening chest pain over the 2-3 weeks described intermittent pain associated with feelings or irregular heart rate. Gregg has decreased her caffeine intake and increased her hydration without significant change in symptoms. She continues to acknowledge intermittent palpitations. There has been no shortness of breath or syncope. There has been no significant interval illness. Past medical history was reviewed and is significant for anxiety, allergic rhinitis, and the above mentioned premature ventricular complexes. Current medications are RONNIE and Xyzal. There is an allergy to lactose. On review of systems, 10 of 14 systems were reviewed and were negative other than noted above. Family history was reviewed and is negative for congenital heart disease, premature coronary artery disease, and sudden . On review of social history Gregg lives with her family in [place], [place]. Physical exam showed: Weight - Scale: 59.6 kg, Facility age limit for growth %jennifer is 22 years. Height: (!) 155 cm, Facility age limit for growth %jennifer is 22 years. Heart rate was 99 beats per minute, respiratory rate was 24 breaths per minute, and blood pressure was 132/84 mmHg. In general, Gregg is acyanotic, well developed, well nourished, and in no acute distress. HEENT exam revealed that mucous membranes are moist. There is no thyromegaly or cervical lymphadenopathy. Respirations are comfortable. There is no use of accessory muscles. There are noretractions. Auscultation reveals good air movement bilaterally without wheezes, rales, or rhonchi. On palpation of the precordium, there are no lifts, heaves, or thrills. Auscultation reveals an irregular rate and irregular rhythm with a normal S1 and physiologically split S2. There is no ejection click. There is no murmur, gallop, or rub. Radial and posterior tibial pulses are 2+, with no delay. Abdomen is soft, non-tender, and non-distended. There is no abdominal bruit. Liver is not palpable. Spleen is not palpable. Extremity exam reveals no cyanosis, clubbing, or edema. Extremities are warm and well perfused. Neurologicexam is grossly intact. There are no rashes or bruises on skin exam. A 12-lead ECG performed today that I personally reviewed demonstrated sinus rhythm with frequent isolated premature ventricular complexes and a ventricular rate of 108, AR interval of 172 msec, QRS duration of 73 msec, QTc of 439 msec, QRS axis of +78 degrees, no atrial enlargement, no ventricular hypertrophy, and no ST/T changes. DIAGNOSES: 1. Chest pain. 2. Premature ventricular complexes. A. 8.1%, no couplets or ventricular tachycardia. Correlating with chest pain (Holter monitor July 14, 2020). B. 4.5%, no couplets or ventricular tachycardia. (Holter monitor January 19, 2021). C. 6.8%, no couplets or ventricular tachycardia. Correlating with chest pain (Holter monitor December 28, 2021). D. Normal echocardiogram. ASSESSMENT: Gregg is a 22 y.o. female with frequent premature ventricular complexes and chest pain correlating with her ventricular ectopy. At this time, Gregg would like to trial beta blockade in an effort to reduce her ventricular ectopy. A repeat Holter monitor was provided today to reassess the degree of ventricular ectopy and correlation with symptoms. RECOMMENDATIONS: 1. Continue primary medical care as directed. 2. SBE prophylaxis is not indicated. Begin metoprolol 12.5 mg daily. 3. No activity restrictions from a cardiovascular perspective. 4. [facility] We will plan to see Gregg in follow-up in 2 months for repeat evaluation and medication titration as needed. Total encounter time was 30 minutes, which includes chart review, counseling, documentation and/or coordination of care. Normal [facility] Laboratory - Microbiology an d Antimicrobial susceptibilityon 03-16-2022 SARS-CoV-2 (COVID-19) RNA RICHARD+probe Ql (Unsp spec) Not detected [facility] No Panel Informationon 03-16 Influenza Types A,B Rapid (Clinic) Not detected [facility] Vital Signs Date Time Vital Sign Value Performing Clinician Facility 07-29-2024 10:29-0400 Body mass index (BMI) [Ratio] 31.29 kg/m2 Georgia Lino MD Work Phone: [facility] 07-29-2024 10:29-0400 Body weight 75.12 kg Georgia Lino MD Work Phone: [facility] 07-29-2024 10:29-0400 Diastolic blood pressure 62 mm[Hg] Georgia Lino MD Work Phone: [facility] 07-29-2024 10:29-0400 Systolic blood pressure 120 mm[Hg] Georgia Lino MD Work Phone: [facility] 07-15-2024 10:10-0400 Heart rate 95 /min No Primary Care Physician [facility] 07-15-2024 10:10-0400 SaO2% (BldA) [Mass fraction] 98 % No Primary Care Physician [facility] 07-15-2024 09:04-0400 Body temperature 97 [degF] No Primary Care Physician [facility] 07-15-2024 09:04-0400 Diastolic blood pressure 76 mm[Hg] No Primary Care Physician [facility] 07-15-2024 09:04-0400 Systolic blood pressure 124 mm[Hg] No Primary Care Physician [facility] 07-15-2024 09:02-0400 Body height 156.21 cm No Primary Care Physician [facility] 07-15-2024 09:02-0400 Body mass index (BMI) [Ratio] 30 kg/m2 No Primary Care Physician [facility] 07-15-2024 09:02-0400 Body weight 73.4 kg No Primary Care Physician [facility] 07-14-2024 15:15-0400 Heart rate 95 /min No Primary Care Physician [facility] 07-14-2024 15:15-0400 SaO2% (BldA) [Mass fraction] 98 % No Primary Care Physician [facility] 07-14-2024 14:44-0400 Diastolic blood pressure 84 mm[Hg] No Primary Care Physician [facility] 07-14-2024 14:44-0400 Systolic blood pressure 129 mm[Hg] No Primary Care Physician [facility] 07-14-2024 14:32-0400 Body height 156.21 cm No Primary Care Physician [facility] 07-14-2024 14:32-0400 Body mass index (BMI) [Ratio] 29.9 kg/m2 No Primary Care Physician [facility] 07-14-2024 14:32-0400 Body weight 73.2 kg No Primary Care Physician [facility] 07-14-2024 12:57-0400 Body mass index (BMI) [Ratio] 29.59 kg/m2 Nena Méndez [employer] Work Phone: [facility] 07-14-2024 12:57-0400 Body weight 72.21 kg Nena Elanameri [employer] Work Phone: [facility] 07-14-2024 12:57-0400 Diastolic blood pressure 70 mm[Hg] Nena Elanameri [facility] MARSHAL.CNM Work Phone: [facility] 07-14-2024 12:57-0400 Systolic blood pressure 110 mm[Hg] Nena Elanameri [employer]OWN [employer]SH[employer]CNM Work Phone: [facility] 07-11-2024 14:57-0400 Body mass index (BMI) [Ratio] 29.56 kg/m2 Shara Martinez MD Work Phone: [facility] 07-11-2024 14:57-0400 Body weight 72.12 kg Shara Martinez MD Work Phone: [facility] 07-11-2024 14:57-0400 Diastolic blood pressure 64 mm[Hg] Shara Martinez MD Work Phone: [facility] 07-11-2024 14:57-0400 Systolic blood pressure 118 mm[Hg] Shara Martinez MD Work Phone: [facility] 07-07-2024 16:07-0400 Body mass index (BMI) [Ratio] 29.74 kg/m2 Georgia Lino MD Work Phone: [facility] 07-07-2024 16:07-0400 Body weight 72.58 kg Georgia Lino MD Work Phone: [facility] 07-07-2024 16:07-0400 Diastolic blood pressure 80 mm[Hg] Geogria Lino MD Work Phone: [facility] 07-07-2024 16:07-0400 Systolic blood pressure 122 mm[Hg] Georgia Lino MD Work Phone: [facility] 06-16-2024 10:25-0400 Diastolic blood pressure 64 mm[Hg] No Primary Care Physician [facility] 06-16-2024 10:25-0400 Heart rate 96 /min No Primary Care Physician [facility] 06-16-2024 10:25-0400 SaO2% (BldA) [Mass fraction] 100 % No Primary Care Physician [facility] 06-16-2024 10:25-0400 Systolic blood pressure 117 mm[Hg] No Primary Care Physician [facility] 06-16-2024 00:39-0400 Body height 154.94 cm No Primary Care Physician [facility] 06-16-2024 00:39-0400 Body mass index (BMI) [Ratio] 29.8 kg/m2 No Primary Care Physician [facility] 06-16-2024 00:39-0400 Body weight 71.66 kg No Primary Care Physician [facility] 06-15-2024 23:26-0400 Diastolic blood pressure 86 mm[Hg] No Primary Care Physician [facility] 06-15-2024 23:26-0400 Heart rate 107 /min No Primary Care Physician [facility] 06-15-2024 23:26-0400 Systolic blood pressure 128 mm[Hg] No Primary Care Physician [facility] 06-15-2024 23:25-0400 Body temperature 99.9 [degF] No Primary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 she has dizziness and sees stars, and resulting in contractions. Please advise, patient is concerned. Thank you, Maribel Joaquin, Admin [facility] 07-14-2024 History and physi meli note [facility] 07-14-2024 Note HNO ID: [id number] Author: NENA MÉNDEZ APRN.CNM Service: ? Author Type: Substation Electrician Type: Progress Notes Filed: 07/14/2024 14:08 Note Text: NST SUMMARY PROVIDER ASSESSMENT AND INTERPRETATION Gregg Zuniga is a 24 year old female, , who is at 33w3d with an JEM of 08/29/2024, by Last Menstrual Period dating method. Indications for NST: Threatened Labor and Other: contractions Baseline: 140 Variability: Moderate Accelerations: Present 15 X 15 Decelerations: None Contractions: TOCO: Every 1-3 minutes Interpretation: Reactive PATIENT SENT TO [facility] for extended monitoring SIGNATURE: Nena Méndez APRN.CNM [facility] 07-14-2024 History of Presen t illness Narrative NST SUMMARY PROVIDER ASSESSMENT AND INTERPRETATION Gregg Zuniga is a 24 year old female, , who is at 33w3d with an JEM of 08/29/2024, by Last Menstrual Period dating method. Indications for NST: Threatened Labor and Other: contractions Baseline: 140 Variability: Moderate Accelerations: Present 15 X 15 Decelerations: None Contractions: TOCO: Every 1-3 minutes Interpretation: Reactive PATIENT SENT TO L&D for extended monitoring SIGNATURE: Nena Méndez APRN.CNM documented in this encounter [facility] 07-14-2024 Progress note Formatting of t his note might be different from the original. S: Gregg Zuniga is a 24 year old female who presents at 33 weeks gestation as an add on for contractions, lower back pain and light pink discharge after wiping. She reports last week losing her mucous plug and began having irregular cramps. This past weekend continued to have cramps every couple of hours. Today, feeling increase in frequency and pain of cramps. Rates pain 6/10. Positive movements. Denies headache, visual changes, chest pain, shortness of breath, vaginal bleeding, leakage of fluid, or dysuria. Denies any recent intercourse. O: See flow sheet Gen: No apparent distress Abd: Gravid, non tender CERTIFIED MORTICIAN: SSE - cervix closed, no active bleeding. Large amount of white vaginal discharge present ASSESSMENT/PLAN: 1. 33 weeks gestation of 2. Supervision of high risk in third trimester 3. Vaginal discharge 4. Low back pain during in third trimester 5. Uterine contractions (HCC) - ICD9: 644.10, ICD10: O47.9 - CE- closed - BACTERIAL VAGINOSIS NAAT - IRENE/TRICHOMONAS NAAT - Placed on NST to monitor contractions- NST reactive, contractions every 1-3 minutes - Sent to L&D for extended monitoring, IV hydration, and possible steroid injection - call centre supervisor provided notified Nena Méndez APRN.CNM [facility] 07-14-2024 Miscellaneous Notes S: Gregg Zuniga is a 24 year old female who presents at 33 weeks gestation as an add on for contractions, lower back pain and light pink discharge after wiping. She reports last week losing her mucous plug and began having irregular cramps. This past weekend continued to have cramps every couple of hours. Today, feeling increase in frequency and pain of cramps. Rates pain 6/10. Positive movements. Denies headache, visual changes, chest pain, shortness of breath, vaginal bleeding, leakage of fluid, or dysuria. Denies any recent intercourse. O: See flow sheet Gen: No apparent distress Abd: Gravid, non tender CERTIFIED MORTICIAN: SSE - cervix closed, no active bleeding. Large amount of white vaginal discharge present ASSESSMENT/PLAN: 1. 33 weeks gestation of 2. Supervision of high risk in third trimester 3. Vaginal discharge 4. Low back pain during in third trimester 5. Uterine contractions (HCC) - ICD9: 644.10, ICD10: O47.9 - CE- closed - BACTERIAL VAGINOSIS NAAT - IRENE/TRICHOMONAS NAAT - Placed on NST to monitor contractions- NST reactive, contractions every 1-3 minutes - Sent to L&D for extended monitoring, IV hydration, and possible steroid injection - call centre supervisor provided notified Nena Méndez APRN.CNM documented in this encounter [facility] 07-14-2024 Instructions Minerva Gordon MA - 07/14/2024 12:57 PM EDT SEQUENTIAL SCREENINGS The [facility] offers sequential screenings for women who are interested in screenings for chromosomal abnormalities and certain defects during a . The sequential screen combines ultrasound and blood tests to determine the risk of chromosomal abnormalities, including Down's Syndrome (Trisomy 21) and Trisomy 18, as well as open neural tube defects including spina bifida. Ultrasound examination is performed between 11 weeks and 13 weeks gestational age. Blood tests are drawn after the ultrasound and again later in the between 15 and 21 weeks gestational age. Please let your physician know if you are interested in this testing. It will require an appointment with our hydro plant technician. This is not an ultrasound performed by a physician in our office during a routine visit. SIGNS AND SYMPTOMS OF LABOR 1. Contractions every 10 minutes or more often 2. Clear, pink, or brownish fluid (water) leaking from vagina 3. Feeling that baby is pushing down, pressure 4. Low, dull backache 5. Cramps that feel like a period 6. Cramps with or without diarrhea If you notice any of the above symptoms, contact our office at [phone] and ask to speak with a nurse. After hours, you can call doctors registry at [phone] OR call [facility] at [phone] and ask to have the doctor automotive power electronics engineer paged. If you consider this an emergency, dial 9-1-5 or go to your nearest emergency department. NEED HELP? Are you dealing with a violent or abusive relationship? Are you a victim of rape or sexual assult? Call [facility] ([place]) 24 hour Crisis Hotline: 253.756.7738 or 697-941-6628. MANUAL Your Guide to a Healthy manual is now on-line. Visit [email or web address] to download your free copy documented in this encounter [facility] 07-14-2024 Telephone encounter Note 33w3d Later last night twice Pt had light pink spotting-only when wiping, none this morning. No recent sexual intercourse. Denies LOF/denies vaginal bleeding, denies vaginal pressure. Active movement. C/o consistent low back pain wrapping around to low abdomen/described as tightness/q1 hour and lasts 3-4 minutes. Tried bouncing on ball, walking, shower, Tylenol 500mg at 4:30am-didn't help as pain keeps getting stronger. Scheduled Pt with SW at 1pm. Miki You RN [facility] 07-14-2024 Miscellaneous Notes 33w3d Later last night twice Pt had light pink spotting-only when wiping, none this morning. No recent sexual intercourse. Denies LOF/denies vaginal bleeding, denies vaginal pressure. Active movement. C/o consistent low back pain wrapping around to low abdomen/described as tightness/q1 hour and lasts 3-4 minutes. Tried bouncing on ball, walking, shower, Tylenol 500mg at 4:30am-didn't help as pain keeps getting stronger. Scheduled Pt with SW at 1pm. Miki You RN documented in this encounter [facility] 07-11-2024 Progress note Formatting of t his note might be different from the original. RR- VB No. LOF No. CTXS No. Movement: present. Other c/o: No. Medication list reviewed. SENSITIVE EXAM: Sensitive exam not performed. Physical Exam See Flow Sheet Abd: soft, nontender, gravid Ext: edema: no A/P 33w0d Estimated Date of Delivery: 08/29/24 Assessment & Plan 33 weeks gestation of ([facility]) Supervision of high risk in third trimester ([facility]) cont. pnv. f/u in 2 weeks or prn birthing plan reviewed Shara Martinez M.D. [facility] 07-11-2024 Miscellaneous Notes RR- VB No. LOF No. CTXS No. Movement: present. Other c/o: No. Medication list reviewed. SENSITIVE EXAM: Sensitive exam not performed. Physical Exam See Flow Sheet Abd: soft, nontender, gravid Ext: edema: no A/P 33w0d Estimated Date of Delivery: 08/29/24 Assessment & Plan 33 weeks gestation of ([facility]) Supervision of high risk in third trimester ([facility]) cont. pnv. f/u in 2 weeks or prn birthing plan reviewed Shara Martinez M.D. documented in this encounter [facility] 07-11-2024 Instructions Sahara Landis MA - 07/11/2024 2:38 PM EDT SEQUENTIAL SCREENINGS The [facility] offers sequential screenings for women who are interested in screenings for chromosomal abnormalities and certain defects during a . The sequential screen combines ultrasound and blood tests to determine the risk of chromosomal abnormalities, including Down's Syndrome (Trisomy 21) and Trisomy 18, as well as open neural tube defects including spina bifida. Ultrasound examination is performed between 11 weeks and 13 weeks gestational age. Blood tests are drawn after the ultrasound and again later in the between 15 and 21 weeks gestational age. Please let your physician know if you are interested in this testing. It will require an appointment with our hydro plant technician. This is not an ultrasound performed by a physician in our office during a routine visit. SIGNS AND SYMPTOMS OF LABOR 1. Contractions every 10 minutes or more often 2. Clear, pink, or brownish fluid (water) leaking from vagina 3. Feeling that baby is pushing down, pressure 4. Low, dull backache 5. Cramps that feel like a period 6. Cramps with or without diarrhea If you notice any of the above symptoms, contact our office at [phone] and ask to speak with a nurse. After hours, you can call doctors registry at [phone] OR call [facility] at [phone] and ask to have the doctor automotive power electronics engineer paged. If you consider this an emergency, dial or go to your nearest emergency department. NEED HELP? Are you dealing with a violent or abusive relationship? Are you a victim of rape or sexual assult? Call [facility] ([place]) 24 hour Crisis Hotline: 404.867.3925 or 957-890-9131. MANUAL Your Guide to a Healthy manual is now on-line. Visit [email or web address] [email or web address] to download your free copy documented in this encounter [facility] 07-10-2024 Telephone encounter Note Signed and faxed. Katie Yusuf RN [facility] 07-10-2024 Miscellaneous Notes Signed and faxed. Katie uYsuf RN Breast pump order received from [employer]. To CP to sign. Katie Yusuf RN documented in this encounter [facility] 07-10-2024 Telephone encounter Note Breast pump order received from [employer]. To CP to sign. Katie Yusuf RN [facility] 07-07-2024 Progress note Formatting of t his note might be different from the original. S: Gregg Zuniga is a 24 year old female who presents at 08/29/2024, by Last Menstrual Period for a routine visit. Denies headache, visual changes, chest pain, shortness of breath, vaginal bleeding, leakage of fluid, or dysuria. . Good movement, No contractions O: See flow sheet Gen: No apparent distress Abd: Gravid, nontender Lower back pain and possible LOF No bleeding Nitrazine negative Fern negative Did a lot of walking this weekend ASSESSMENT/PLAN: 1. Low back pain during in third trimester ([facility]) - ICD9: 646.80, 724.2, ICD10: O26.893, M54.50 (primary diagnosis) - UA DIP, URINE (POC) 2. 32 weeks gestation of ([facility]) - ICD9: V22.2, ICD10: Z3A.32 3. Encounter for supervision of normal first in third trimester ([facility]) - ICD9: V22.0, ICD10: Z34.03 Georgia Lino MD [facility] 07-07-2024 Miscellaneous Notes S: Gregg Zuniga is a 24 year old female who presents at 08/29/2024, by Last Menstrual Period for a routine visit. Denies headache, visual changes, chest pain, shortness of breath, vaginal bleeding, leakage of fluid, or dysuria. . Good movement, No contractions O: See flow sheet Gen: No apparent distress Abd: Gravid, nontender Lower back pain and possible LOF No bleeding Nitrazine negative Fern negative Did a lot of walking this ASSESSMENT/PLAN: 1. Low back pain during in third trimester ([facility]) - ICD9: 646.80, 724.2, ICD10: O26.893, M54.50 (primary diagnosis) - UA DIP, URINE (POC) 2. 32 weeks gestation of ([facility]) - ICD9: V22.2, ICD10: Z3A.32 3. Encounter for supervision of normal first in third trimester ([facility]) - ICD9: V22.0, ICD10: Z34.03 Georgia Lino MD documented in this encounter [facility] 05-05-2025 Instructions Sahara Landis MA - 07/07/2024 4:02 PM EDT SEQUENTIAL SCREENINGS The [facility] offers sequential screenings for women who are interested in screenings for chromosomal abnormalities and certain defects during a . The sequential screen combines ultrasound and blood tests to determine the risk of chromosomal abnormalities, including Down's Syndrome (Trisomy 21) and Trisomy 18, as well as open neural tube defects including spina bifida. Ultrasound examination is performed between 11 weeks and 13 weeks gestational age. Blood tests are drawn after the ultrasound and again later in the between 15 and 21 weeks gestational age. Please let your physician know if you are interested in this testing. It will require an appointment with our hydro plant technician. This is not an ultrasound performed by a physician in our office during a routine visit. SIGNS AND SYMPTOMS OF LABOR 1. Contractions every 10 minutes or more often 2. Clear, pink, or brownish fluid (water) leaking from vagina 3. Feeling that baby is pushing down, pressure 4. Low, dull backache 5. Cramps that feel like a period 6. Cramps with or without diarrhea If you notice any of the above symptoms, contact our office at [phone] and ask to speak with a nurse. After hours, you can call doctors registry at [phone] OR call [facility] at [phone] and ask to have the doctor automotive power electronics engineer paged. If you consider this an emergency, dial 9-1-1 or go to your nearest emergency department. NEED HELP? Are you dealing with a violent or abusive relationship? Are you a victim of rape or sexual assult? Call [facility] ([facility] 24 hour Crisis Hotline: 270.621.5348 or 700-934-3323. MANUAL Your Guide to a Healthy manual is now on-line. Visit [email or web address] to download your free copy documented in this encounter [facility] 06-17-2024 Telephone encounter Note Pt notified and voiced understanding. Miki You RN [facility] 06-17-2024 Miscellaneous Notes Pt notified and voiced understanding. Miki You RN Her CBC is fine. There is nothing of concern. The labs values are established for non patient so they will flag as abnormal even when they are not 29w4d Pt calling re: lab results from 06/13/24. States she received notification from that she was not anemic; however, she saw that the anemia reflex panel came back abnormal. Advised Pt that regarding the anemia reflex panel-her hemoglobin is WNL. Pt inquiring about whether the elevated CBC levels are of concern. Informed Pt that it is not uncommon for the WBC to be slightly increased in and that hers is not far out of range. Please advise and will send K Spine message to Pt with response. Miki You RN documented in this encounter [facility] 06-17-2024 Telephone encounter Note Her CBC is fine. There is nothing of concern. The labs values are established for non patient so they will flag as abnormal even when they are not [facility] Work Phone: 06-17-2024 Telephone encounter Note 29w4d Pt calling re: lab results from 06/13/24. States she received notification from that she was not anemic; however, she saw that the anemia reflex panel came back abnormal. Advised Pt that regarding the anemia reflex panel-her hemoglobin is WNL. Pt inquiring about whether the elevated CBC levels are of concern. Informed Pt that it is not uncommon for the WBC to be slightly increased in and that hers is not far out of range. Please advise and will send myaNUMBERhart message to Pt with response. Miki You RN [facility] 06-15-2024 Radiology Diagnostic study note [facility] Imaging Services [address] [place] [address] CTA Chest W/WO Contrast MR#: [id number] Acct: [id number] Name: GREGG ZUNIGA Rep #: [id number] : 2000 F 24 From: Mckenzie Tran DO PCP: Care Physician,No Primary Status: REG ER Study:CTA Chest W/WO Contrast Date of Exam: 06/15/24 Exam# [id number] Ordering Dr: Frankie Jesus DO PROCEDURE: CTA CHEST W/WO CONTRAST 06/15/2024 REASON FOR EXAM: Shortness of breath, pulmonary embolism TECHNIQUE: CTA imaging of the chest, abdomen and pelvis without and with intravenous contrast. Coronal and Sagittal reconstruction series were provided. 3D, 3D post processing, 3D reconstructions, Maximum intensity projection (MIPs) Volume rendering and Shaded surface rendering was provided. One or more dose reduction techniques were used (e.g., Automated exposure control, adjustment of the mA and/or kV according to patient size, use of iterative reconstruction technique). COMPARISON: None FINDINGS: Heart size is within normal limits. No significant pericardial effusion or coronary artery calcifications. Normal caliber thoracic aorta without gross dissection. Normal caliber pulmonary arteries without filling defects. Somewhat limited evaluation of the peripheral pulmonary arteries due to motion artifact. No suspicious adenopathy. Partially visualized mass in the upper abdomen measuring 10.1 x 12.8 cm in axial dimensions width ovoid fluid centrallyand peripheral vascularity. Central airways are patent. No acute infiltrates, pleural effusion or pneumothorax. No pulmonary mass. Osseous structures are intact. CT/CTA Chest W/WO Contrast IMPRESSION: 1. No acute thoracic process. 2. Partially visualized large peripherally enhancing mass with central fluid density in the upper abdomen. Recommend further evaluation with CT abdomen pelvis. Reading Location: [facility] CC: Dr. Frankie Sosa-Flores, DO; No Primary Care Physician ~ Automobile Body Customizer: Signed [facility] 06-15-2024 Evaluation note Diagnosis Onset Date Resolution Abdominal pain acute June 7:56pm acute June 15 7:56pm Shortness of breath acute June 15, 2024 7:56pm [facility] Work Phone: 1(156) 704-501804-13-2025 Evaluation note* Diagnosis Onset Date Resolution Status Admit Date 29 weeks gestation of acut e June 15, 2024 7:56pm Abdominal pain acute June 7:56pm Cramping affecting , antepartum acute June 15, 2024 7:56pm acute June 15 7:56pm Shortness of breath acute June 15, 2024 7:56pm 33 weeks gestation of acut e July 14, 2024 2:17pm Uterine contractions acute July 14, 2024 2:17pm [facility] Work Phone: 1(695) 675-698404-11-2025 NoteHNO ID: [id number] Author: MILLY SINGH MD Service: ? Author Type: Physician Type: Progress Notes Filed: 06/16/2024 08:33 Note Text: SW- Pt doing well. No ctx, vb, lof. Good FM PE: Gen- NAD, well appearing Abd- Soft, gravid, NT LE- No edema See flowsheet A/p 29 wk gestation - 28 wk labs today - LARC signed - plan sheet given - Tdap next visit - Rhogam today - Discussed classes at [facility] and peds - [facility] History of Present illness Narrative* Milly Singh MD - 06/13/2024 1:43 PM EDT SW- Pt doing well. No ctx, vb, lof. Good FM PE: Gen- NAD, well appearing Abd- Soft, gravid, NT LE- No edema See flowsheet A/p 29 wk gestation - 28 wk labs today - LARC signed - plan sheet given - Tdap next visit - Rhogam today - Discussed classes at [facility] and peds - RTO 2 wks Milly Singh DO [facility] Instructions* Patient Instructions* Minerva Gordon MA - 06/13/2024 1:23 PM EDT SEQUENTIAL SCREENINGS The [facility] offers sequential screenings for women who are interested in screenings for chromosomal abnormalities and certain defects during a . The sequential screen combinesultrasound and blood tests to determine the risk of chromosomal abnormalities, including Down's Syndrome (Trisomy 21) and Trisomy 18, as well as open neural tube defects including spina bifida. Ultrasound examination is performed between 11 weeks and 13 weeks gestational age. Blood tests are drawn after the ultrasound and again later in the between 15 and 21 weeks gestational age. Please let your physician know if you are interested in this testing. It will require an appointment withour hydro plant technician. This is not an ultrasound performed by a physician in our office during a routine visit. SIGNS AND SYMPTOMS OF LABOR 1. Contractions every 10 minutes or more often 2. Clear, pink, or brownish fluid (water) leaking from vagina 3. Feeling that baby is pushing down, pressure 4. Low, dull backache 5. Cramps that feel like a period 6. Cramps with or without diarrhea If you notice any of the above symptoms, contact our office at [phone] and ask to speak with anurse. After hours, you can call doctors registry at [phone] OR call [facility] at [phone] ask to have the doctor automotive power electronics engineer paged. If you consider this an emergency, dial or go to your nearest emergency department. NEED HELP? Are you dealing with a violent or abusive relationship? Are you a victim of rape or sexual assult? Call [facility] ([place]) 24 hour Crisis Hotline: 743.532.6771 or 485-076-2860. MANUAL Your Guide to a Healthy manual is now on-line. Visit [email or web address] to download your free copy [facility] Telephone encounter Note * Telephone Encounter - Manas Vogel MA - 06/10/2024 10:48 AM EDT Submitted PA for Prilosec. Received immediate response that Your PA has been resolved. No additional PA is required. Manas Vogel MA [facility]04-08-2025 Miscellaneous Notes* Telephone Encounter - Manas Vogel MA - 06/10/2024 10:48 AM EDT Submitted PA for Prilosec. Received immediate response that Your PA has been resolved. No additional PA is required. Manas Vogel MA * Telephone Encounter - Izabela Collins - 06/10/2024 9:46 AM EDT Pt called in stating [facility] needs prior auth for Prilosec. Please advise, Thank you documented [facility]04[facility] Telephone encounter Note * Telephone Encounter - Izabela Collins - 06/10/2024 9:46 AM EDT Pt called in stating [facility] needs prior auth for Prilosec. Please advise, Thank you [facility]04-08-2025 Telephone encounter Note* Telephone Encounter - Katie Yusuf RN - 06/10/2024 9:06 AM EDT Left message for patient to check myaNUMBERhart message or call office. Katie Yusuf RN [facility]04-08-2025 Miscellaneous Notes* Telephone Encounter - Katie Yusuf RN - 06/10/2024 9:06 AM EDT Left message for patient to check myaNUMBERhart message or call office. Katie Yusuf RN * Telephone Encounter - Aminah Escobar MD - 06/10/2024 8:42 AM EDT I would also try warm shower again or warm soak in tub, stretching 3 x day , heating pad. Sounds like it could be MSK in nature. If any further concerns or if pain is not relieved please notify office. * Telephone Encounter - Georgia Wren RN - 06/10/2024 8:13 AM EDT 28w4d Patient called in with lower back pain and left sided abdominal pain that woke her up last night. She took a warm shower and took 1,000 mg of Tylenol which did help. This morning the pain is a 7 and she can barely stand up straight. Advised that she can take another dose of Tylenol since it did help last night and to try a heating pad. Denies VB, contractions, or LOF. Good FM. No need to call patient back unless provider has further advice. Next OB visit is Sunday. Georgia Wren RN [facility] Telephone encounter Note * Telephone Encounter - Aminah Escobar MD - 06/10/2024 8:42 AM EDT I would also try warm shower again or warm soak in tub, stretching 3 x day , heating pad. Sounds like it could be MSK in nature. If any further concerns or if pain is not relieved please notify office. [facility] Work Phone: 1(330) 492-669504-08-2025 Telephone encounter Note* Telephone Encounter - Georgia Wren RN - 06/10/2024 8:13 AM EDT 28w4d Patient called in with lower back pain and left sided abdominal pain that woke her up last night. She took a warm shower and took 1,000 mg of Tylenol which did help. This morning the pain is a 7 and she can barely stand up straight. Advised that she can take another dose of Tylenol since it did help last night and to try a heating pad. Denies VB, contractions, or LOF. Good FM. No need to call patient back unless provider has further advice. Next OB visit is Sunday. Georgia Wren RN [facility]04-02-2025 Telephone encounter Note* Telephone Encounter - Katie Yusuf RN - 06/04/2024 4:59 PM EDT 27w5d Pharmacy requesting alternative for pantoprazole. See note below. Pharmacy comment: Alternative Requested:THE PRESCRIBED MEDICATION IS NOT COVERED BY INSURANCE. PLEASE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 Pablo MD [address] [place] [address] Assessment Analyst Pediatric Cardiology 12/24/23 Speed Belt Sander Tender Relationship Specialty Start Date End Date Kayleen Mckay MD (Fax) PCP - General Pediatrics 01/28/11 Jay Byrd MD [address] [place] [place] [address] Primary Staff Physician Cardiology 12/24/23 Edith Pablo MD [address] [place] [address] Assessment Analyst Pediatric Cardiology 12/24/23 Speed Belt Sander Tender Relationship Specialty Start Date End Date Kayleen Mckay MD PCP - General Pediatrics 01/28/11 Jay Byrd MD [address] [place], [place] [id number] Primary Staff Physician Cardiology 12/24/23 Edith Pablo MD [address] [place] [address] Assessment Analyst Pediatric Cardiology 12/24/23 Speed Belt Sander Tender Relationship Specialty Start Date End Date Kayleen Mckay MD PCP - General Pediatrics 01/28/11 Jay Byrd MD [address] [place] [place] [address] Primary Staff Physician Cardiology 12/24/23 Edith Pablo MD [address] [place] [address] Assessment Analyst Pediatric Cardiology 12/24/23 Speed Belt Sander Tender Relationship Specialty Start Date End Date Kayleen Mckay MD PCP - General Pediatrics 01/28/11 Jay Byrd MD [address] [place] [place] [address] Primary Staff Physician Cardiology 12/24/23 Edith Pablo MD [address] [place] [address] Assessment Analyst Pediatric Cardiology 12/24/23 Speed Belt Sander Tender Relationship Specialty Start Date End Date Kayleen Mckay MD PCP - General Pediatrics 01/28/11 Jay Byrd MD [address] [place], [place] [address] Primary Staff Physician Cardiology 12/24/23 Edith Pablo MD [address] [place], [place] [id number] Assessment Analyst Pediatric Cardiology 12/24/23 Speed Belt Sander Tender Relationship Specialty Start Date End Date Kayleen Mckay MD (Fax) PCP - General Pediatrics 01/28/11 Jay Byrd MD [address] [place] [place] [address] Primary Staff Physician Cardiology 12/24/23 Edith Pablo MD [address] [place] [address] Assessment Analyst Pediatric Cardiology 12/24/23 Speed Belt Sander Tender Relationship Specialty Start Date End Date Kayleen Mckay MD (Fax) PCP - General Pediatrics 01/28/11 Jay Byrd MD [address] [place] [place] [address] Primary Staff Physician Cardiology 12/24/23 Edith Pablo MD [address] [place] [address] Assessment Analyst Pediatric Cardiology 12/24/23 Speed Belt Sander Tender Relationship Specialty Start Date End Date Kayleen Mckay MD PCP - General Pediatrics 01/28/11 Jay Byrd MD [address] [place], [place] [address] Primary Staff Physician Cardiology 12/24/23 Edith Pablo MD [address] [facility] [address] [place] [address] Assessment Analyst Pediatric Cardiology 12/24/23 Team Status: Active Member Role Status Dates No Primary Care Physician Primary Care Provider Active Team Status: Inactive Member Role Status Dates No Primary Care Physician Primary Care Provider Active Start: March 24, 2024 End: March 24, 2024 Dr. Len Haile DO Attending Provider Active Start: March 24, 2024 End: March 24, 2024 Dr. Len Haile DO Emergency Provider Active Start: March 24, 2024 End: March 24, 2024 Team Status: Inactive Member Role Status Dates No Primary Care Physician Primary Care Provider Active Start: June 15, 2024 End: June 15, 2024 Dr. Frankie Mcdaniel DO Emergency Provider Activ e Start: June 15, 2024 End: June 15, 2024 Team Status: Inactive Member Role Status Dates No Primary Care Physician Primary Care Provider Active Start: June 15, 2024 End: June 16, 2024 Dr. Georgia Lino MD Attending Provider Active Start: June 15, 2024 End: June 16, 2024 Dr. Georgia Lino MD Referring Provider Active Start: June 15, 2024 End: June 16, 2024 Speed Belt Sander Tender Relationship Specialty Start Date End Date Kayleen Mckay MD PCP - General Pediatrics 01/28/11 Jay Byrd MD [address] [place] [address] Primary Staff Physician Cardiology 12/24/23 Edith Pablo MD [address] [place] [address] Assessment Analyst Pediatric Cardiology 12/24/23 Speed Belt Sander Tender Relationship Specialty Start Date End Date Kayleen Mckay MD (Fax) PCP - General Pediatrics 01/28/11 Jay Byrd MD [address] [place] [address] Primary Staff Physician Cardiology 12/24/23 Edith Pablo MD [address] [place], [place] [id number] Assessment Analyst Pediatric Cardiology 12/24/23 Speed Belt Sander Tender Relationship Specialty Start Date End Date Kayleen Mckay MD (Fax) PCP - General Pediatrics 01/28/11 Jay Byrd MD [address] [place] [place] [address] Primary Staff Physician Cardiology 12/24/23 Edith Pablo MD [address] [place] [address] Assessment Analyst Pediatric Cardiology 12/24/23 Speed Belt Sander Tender Relationship Specialty Start Date End Date Kayleen Mckay MD PCP - General Pediatrics 01/28/11 Jay Byrd MD [address] [place] [place] [address] Primary Staff Physician Cardiology 12/24/23 Edith Pablo MD [address] [place], [place] [id number] Assessment Analyst Pediatric Cardiology 12/24/23 Speed Belt Sander Tender Relationship Specialty Start Date End Date Kayleen Mckay MD PCP - General Pediatrics 01/28/11 Jay Byrd MD [address] [place] [place] [address] Primary Staff Physician Cardiology 12/24/23 Edith Pablo MD [address] [place], [place] [phone] Assessment Analyst Pediatric Cardiology 12/24/23 Team Status: Inactive Member Role Status Dates No Primary Care Physician Primary Care Provider Active Start: July 14, 2024 End: July 14, 2024 Nena Méndez CNM Attending Provider Active Start: July 14, 2024 End: July 14, 2024 Nena Méndez CNM Referring Provider Active Start: July 14, 2024 End: July 14, 2024 Speed Belt Sander Tender Relationship Specialty Start Date End Date Kayleen Mckay MD PCP - General Pediatrics 01/28/11 Jay Byrd MD [address] [place] [place] [address] Primary Staff Physician Cardiology 12/24/23 Edith Pablo MD [address] [place], [place] [phone] Assessment Analyst Pediatric Cardiology 12/24/23 Team Status: Inactive Member Role Status Dates No Primary Care Physician Primary Care Provider Active Start: July 15, 2024 End: July 15, 2024 Dr. Yobany Romero MD Attending Provider Active Start: July 15, 2024 End: July 15, 2024 Dr. Yobany Romero MD Referring Provider Active Start: July 15, 2024 End: July 15, 2024 Speed Belt Sander Tender Relationship Specialty Start Date End Date Kayleen Mckay MD PCP - General Pediatrics 01/28/11 Jay Byrd MD [address] [place] [address] Primary Staff Physician Cardiology 12/24/23 Edith Pablo MD [address] [place] [address] Assessment Analyst Pediatric Cardiology 12/24/23 Speed Belt Sander Tender Relationship Specialty Start Date End Date Kayleen Mckay MD PCP - General Pediatrics 01/28/11 Jay Byrd MD [address] [place] [address] Primary Staff Physician Cardiology 12/24/23 Edith Pablo MD [address] [place] [address] Assessment Analyst Pediatric Cardiology 12/24/23 Speed Belt Sander Tender Relationship Specialty Start Date End Date Kayleen Mckay MD PCP - General Pediatrics 01/28/11 Jay Byrd MD [address] [place] [address] Primary Staff Physician Cardiology 12/24/23 Edith Pablo MD [address] [place] [address] Assessment Analyst Pediatric Cardiology 12/24/23 Speed Belt Sander Tender Relationship Specialty Start Date End Date Kayleen Mckay MD PCP - General Pediatrics 01/28/11 Jay Byrd MD [address] [place] [address] Primary Staff Physician Cardiology 12/24/23 Edith Pablo MD [address] [place] [address] Assessment Analyst Pediatric Cardiology 12/24/23 Source Comments (unrecognize d section and content) In the event this informatio n is protected by the Federal Confidentiality of Alcohol and Drug Abuse Patient Records regulations: The Federal rules restrict any use of the information to criminally investigate or prosecute any alcohol or drug abuse patient.[facility] the event this information is protected by the Federal Confidentiality of Alcohol and Drug Abuse Patient Records regulations: The Federal rules restrict any use of the information to criminally investigate or prosecute any alcohol or drug abuse patient.[facility] HospitalIn the event this information is protected by the Federal Confidentiality of Alcohol and Drug Abuse Patient Records regulations: The Federal rules restrict any use of the information to criminally investigate or prosecute any alcohol or drug abuse patient.[facility] HospitalIn the event this information is protected by the Federal Confidentiality of Alcohol and Drug Abuse Patient Records regulations: The Federal rules restrict any use of the information to criminally investigate or prosecute any alcohol or drug abuse patient.[facility] HospitalIn the event this information is protected by the Federal Confidentiality of Alcohol and Drug Abuse Patient Records regulations: The Federal rules restrict any use of the information to criminally investigate or prosecute any alcohol or drug abuse patient.[facility] HospitalIn the event this information is protected by the Federal Confidentiality of Alcohol and Drug Abuse Patient Records regulations: The Federal rules restrict any use of the information to criminally investigate or prosecute any alcohol or drug abuse patient.[facility] HospitalIn the event this information is protected by the Federal Confidentiality of Alcohol and Drug Abuse Patient Records regulations: The Federal rules restrict any use of the information to criminally investigate or prosecute any alcohol or drug abuse patient.[facility] HospitalIn the event this information is protected by the Federal Confidentiality of Alcohol and Drug Abuse Patient Records regulations: The Federal rules restrict any use of the information to criminally investigate or prosecute any alcohol or drug abuse patient.[facility] HospitalIn the event this information is protected by the Federal Confidentiality of Alcohol and Drug Abuse Patient Records regulations: The Federal rules restrict any use of the information to criminally investigate or prosecute any alcohol or drug abuse patient.[facility] HospitalIn the event this information is protected by the Federal Confidentiality of Alcohol and Drug Abuse Patient Records regulations: The Federal rules restrict any use of the information to criminally investigate or prosecute any alcohol or drug abuse patient.[facility] HospitalIn the event this information is protected by the Federal Confidentiality of Alcohol and Drug Abuse Patient Records regulations: The Federal rules restrict any use of the information to criminally investigate or prosecute any alcohol or drug abuse patient.[facility] HospitalIn the event this information is protected by the Federal Confidentiality of Alcohol and Drug Abuse Patient Records regulations: The Federal rules restrict any use of the information to criminally investigate or prosecute any alcohol or drug abuse patient.[facility] HospitalIn the event this information is protected by the Federal Confidentiality of Alcohol and Drug Abuse Patient Records regulations: The Federal rules restrict any use of the information to criminally investigate or prosecute any alcohol or drug abuse patient.[facility] HospitalIn the event this information is protected by the Federal Confidentiality of Alcohol and Drug Abuse Patient Records regulations: The Federal rules restrict any use of the information to criminally investigate or prosecute any alcohol or drug abuse patient.[facility] HospitalIn the event this information is protected by the Federal Confidentiality of Alcohol and Drug Abuse Patient Records regulations: The Federal rules restrict any use of the information to criminally investigate or prosecute any alcohol or drug abuse patient.[facility] HospitalIn the event this information is protected by the Federal Confidentiality of Alcohol and Drug Abuse Patient Records regulations: The Federal rules restrict any use of the information to criminally investigate or prosecute any alcohol or drug abuse patient.[facility] HospitalIn the event this information is protected by the Federal Confidentiality of Alcohol and Drug Abuse Patient Records regulations: The Federal rules restrict any use of the information to criminally investigate or prosecute any alcohol or drug abuse patient.[facility] HospitalIn the event this information is protected by the Federal Confidentiality of Alcohol and Drug Abuse Patient Records regulations: The Federal rules restrict any use of the information to criminally investigate or prosecute any alcohol or drug abuse patient.[facility] HospitalIn the event this information is protected by the Federal Confidentiality of Alcohol and Drug Abuse Patient Records regulations: The Federal rules restrict any use of the information to criminally investigate or prosecute any alcohol or drug abuse patient.[facility] HospitalIn the event this information is protected by the Federal Confidentiality of Alcohol and Drug Abuse Patient Records regulations: The Federal rules restrict any use of the information to criminally investigate or prosecute any alcohol or drug abuse patient.[facility] HospitalIn the event this information is protected by the Federal Confidentiality of Alcohol and Drug Abuse Patient Records regulations: The Federal rules restrict any use of the information to criminally investigate or prosecute any alcohol or drug abuse patient.[facility] HospitalIn the event this information is protected by the Federal Confidentiality of Alcohol and Drug Abuse Patient Records regulations: The Federal rules restrict any use of the information to criminally investigate or prosecute any alcohol or drug abuse patient.[facility] HospitalIn the event this information is protected by the Federal Confidentiality of Alcohol and Drug Abuse Patient Records regulations: The Federal rules restrict any use of the information to criminally investigate or prosecute any alcohol or drug abuse patient.[facility] HospitalIn the event this information is protected by the Federal Confidentiality of Alcohol and Drug Abuse Patient Records regulations: The Federal rules restrict any use of the information to criminally investigate or prosecute any alcohol or drug abuse patient.[facility] HospitalIn the event this information is protected by the Federal Confidentiality of Alcohol and Drug Abuse Patient Records regulations: The Federal rules restrict any use of the information to criminally investigate or prosecute any alcohol or drug abuse patient.[facility] HospitalIn the event this information is protected by the Federal Confidentiality of Alcohol and Drug Abuse Patient Records regulations: The Federal rules restrict any use of the information to criminally investigate or prosecute any alcohol or drug abuse patient.[facility] the event this information is protected by the Federal Confidentiality of Alcohol and Drug Abuse Patient Records regulations: The Federal rules restrict any use of the information to criminally investigate or prosecute any alcohol or drug abuse patient.[facility] HospitalIn the event this information is protected by the Federal Confidentiality of Alcohol and Drug Abuse Patient Records regulations: The Federal rules restrict any use of the information to criminally investigate or prosecute any alcohol or drug abuse patient.[facility] HospitalIn the event this information is protected by the Federal Confidentiality of Alcohol and Drug Abuse Patient Records regulations: The Federal rules restrict any use of the information to criminally investigate or prosecute any alcohol or drug abuse patient.[facility]In the event this information is protected by the Federal Confidentiality of Alcohol and Drug Abuse Patient Records regulations: The Federal rules restrict any use of the information to criminally investigate or prosecute any alcohol or drug abuse patient.[facility] HospitalIn the event this information is protected by the Federal Confidentiality of Alcohol and Drug Abuse Patient Records regulations: The Federal rules restrict any use of the information to criminally investigate or prosecute any alcohol or drug abuse patient.[facility] HospitalIn the event this information is protected by the Federal Confidentiality of Alcohol and Drug Abuse Patient Records regulations: The Federal rules restrict any use of the information to criminally investigate or prosecute any alcohol or drug abuse patient.[facility] HospitalIn the event this information is protected by the Federal Confidentiality of Alcohol and Drug Abuse Patient Records regulations: The Federal rules restrict any use of the information to criminally investigate or prosecute any alcohol or drug abuse patient.[facility] HospitalIn the event this information is protected by the Federal Confidentiality of Alcohol and Drug Abuse Patient Records regulations: The Federal rules restrict any use of the information to criminally investigate or prosecute any alcohol or drug abuse patient.[facility] HospitalIn the event this information is protected by the Federal Confidentiality of Alcohol and Drug Abuse Patient Records regulations: The Federal rules restrict any use of the information to criminally investigate or prosecute any alcohol or drug abuse patient.[facility] HospitalIn the event this information is protected by the Federal Confidentiality of Alcohol and Drug Abuse Patient Records regulations: The Federal rules restrict any use of the information to criminally investigate or prosecute any alcohol or drug abuse patient.[facility] HospitalIn the event this information is protected by the Federal Confidentiality of Alcohol and Drug Abuse Patient Records regulations: The Federal rules restrict any use of the information to criminally investigate or prosecute any alcohol or drug abuse patient.[facility] HospitalIn the event this information is protected by the Federal Confidentiality of Alcohol and Drug Abuse Patient Records regulations: The Federal rules restrict any use of the information to criminally investigate or prosecute any alcohol or drug abuse patient.[facility] HospitalIn the event this information is protected by the Federal Confidentiality of Alcohol and Drug Abuse Patient Records regulations: The Federal rules restrict any use of the information to criminally investigate or prosecute any alcohol or drug abuse patient.[facility] HospitalIn the event this information is protected by the Federal Confidentiality of Alcohol and Drug Abuse Patient Records regulations: The Federal rules restrict any use of the information to criminally investigate or prosecute any alcohol or drug abuse patient.[facility] HospitalIn the event this information is protected by the Federal Confidentiality of Alcohol and Drug Abuse Patient Records regulations: The Federal rules restrict any use of the information to criminally investigate or prosecute any alcohol or drug abuse patient.[facility] HospitalIn the event this information is protected by the Federal Confidentiality of Alcohol and Drug Abuse Patient Records regulations: The Federal rules restrict any use of the information to criminally investigate or prosecute any alcohol or drug abuse patient.[facility] HospitalIn the event this information is protected by the Federal Confidentiality of Alcohol and Drug Abuse Patient Records regulations: The Federal rules restrict any use of the information to criminally investigate or prosecute any alcohol or drug abuse patient.[facility] HospitalIn the event this information is protected by the Federal Confidentiality of Alcohol and Drug Abuse Patient Records regulations: The Federal rules restrict any use of the information to criminally investigate or prosecute any alcohol or drug abuse patient.[facility] HospitalIn the event this information is protected by the Federal Confidentiality of Alcohol and Drug Abuse Patient Records regulations: The Federal rules restrict any use of the information to criminally investigate or prosecute any alcohol or drug abuse patient.[facility] HospitalIn the event this information is protected by the Federal Confidentiality of Alcohol and Drug Abuse Patient Records regulations: The Federal rules restrict any use of the information to criminally investigate or prosecute any alcohol or drug abuse patient.[facility] HospitalIn the event this information is protected by the Federal Confidentiality of Alcohol and Drug Abuse Patient Records regulations: The Federal rules restrict any use of the information to criminally investigate or prosecute any alcohol or drug abuse patient.[facility] HospitalIn the event this information is protected by the Federal Confidentiality of Alcohol and Drug Abuse Patient Records regulations: The Federal rules restrict any use of the information to criminally investigate or prosecute any alcohol or drug abuse patient.[facility] Reason for Visit (unrecogniz ed section and content) Reason Comments Shoulder Injury L shoulder Reason Onset Date Comments Palpitations 12/24/2023 Reason Comments Event ZIO PATCH Reason Onset Date Comments Care 02/18/2024 Reason Comments US Specialty Diagnoses / Procedures Referred By Contac t Referred To Contact [facility] Diagnoses 7 weeks gestation of Procedures NUCHAL TRANSLUCENCY WHI US NUCHAL TRANSLUCENCY 1ST GESTATION Angie Ocasio, [employer].SENIOR PROGRAM MANAGER [address] [place] [address] [address] Referral ID Status Reason Start Date Expiration Date V isits Requested Visits Authorized [id number] Closed Auto-Generate d Referral 01/14/2024 01/13/2025 1 1 Reason Onset Date Comments Care 03/06/2024 Reason Onset Date Comments Care 03/17/2024 Reason Comments Knee Injury R knee injury x toda y Reason Onset Date Comments Arrhythmia 03/28/2024 Reason Onset Date Comments Care 04/08/2024 Reason Onset Date Comments Care 04/14/2024 Specialty Diagnoses / Procedures Referred By Contac t Referred To Contact [facility] Diagnoses 12 weeks gestation of Encounter for supervision of normal first in second trimester Procedures OBSTETRIC ULTRASOUND WHI US PREG UTERUS AFTER 1ST TRIMEST GESTATION Martha Santamaria APRN.CNM [address] [place] [address] Phone: tel: fax: [address] [address] Referral ID Status Reason Start Date Expiration Date V isits Requested Visits Authorized [id number] Closed Auto-Generate d Referral 02/18/2024 02/17/2025 1 1 Reason Comments OB- Illness Reason Onset Date Comments Care 05/02/2024 Reason Onset Date Comments Care 05/08/2024 Reason Comments Med Change Request Reason Onset Date Comments Care 06/04/2024 Reason Comments OB back pain Reason Comments Medication Problem Reason Onset Date Comments Care 06/13/2024 Reason Comments Patient Question Reason Onset Date Comments Care 07/07/2024 Reason Comments Care Coordination [facility] ConsultCalle d pt for scheduled consult, no answer Reason Comments Breast Pump Reason Onset Date Comments Care 07/11/2024 Reason Onset Date Comments Care 07/14/2024 Reason Comments Patient Update High HR, dizziness, seeing stars Reason Comments OB Contractions INFORMATION SOURCE (unrecogn ized section and content) DATE CREATED AUTHOR 05/03/2023 [facility] DATE CREATED AUTHOR AUTHOR'S ORGANIZ ATION 07/11/2024 [facility] DATE CREATED AUTHOR AUTHOR'S ORGANIZ ATION 07/18/2024 [facility] DATE CREATED AUTHOR AUTHOR'S ORGANIZ ATION 07/31/2024 [facility] DATE CREATED AUTHOR AUTHOR'S ORGANIZ ATION 07/31/2024 [facility] FOR RECORDS PERTAINING TO PATIENTS WHO ARE OR HAVE BEEN ENROLLED IN A CHEMICAL DEPENDENCY/SUBSTANCEABUSE PROGRAM, SOME INFORMATION MAY BE OMITTED. This clinical summary was aggregated from multiple sources. Caution should be exercised in using it in the provision of clinical care. This summary normalizes information from multiple sources, and as a consequence, information in this document may materially change the coding, format and clinical context of patient data. In addition, data may be omitted in some cases. CLINICAL DECISIONS SHOULD BE BASED ON THE PRIMARY CLINICAL RECORDS. [facility] [employer] [facility]. provides no warranty or guarantee of the accuracy or completeness of information in this document.
[2024-08-07 22:15] VITALS: BP 122/80; PULSE 67; O2SAT 97
[2024-08-09 07:38] LABS: Kleihauer-Betke Negative
== END 2024-08-07 22:22 | disposition home or self-care (01) ==
LOC: WPOUT 16:39 → WP 16:40
PROVIDERS: Referring Provider Obstetrics & Gynecology; Visit Provider Obstetrics & Gynecology
DX: O9A.213 Injury, poisoning and certain other consequences of external causes complicating pregnancy, third trimester (principal); S39.91XA Unspecified injury of abdomen, initial encounter; W19.XXXA Unspecified fall, initial encounter; O26.893 Other specified pregnancy related conditions, third trimester; Z67.90 Unspecified blood type, Rh positive; Z3A.36 36 weeks gestation of pregnancy
CPT/HCPCS: 36415; 59025; 59050; 85460; 86900; 86901; 90384; 93005; 96372; 99221; G0378; J2790; J2791

== ENCOUNTER 2024-08-22 19:18 | Inpatient (IN) | payer OTHER, SELFPAY ==
[2024-08-22 19:23] VITALS: BMI 32.0
--- OUTSIDE RECORDS SUMMARY | 2024-08-22 19:45 | XMS RPT_ITS | CCD ---
Author Organization [facility] Care Team Providers Care Bonding Machine Setter Name Role Phone Dr. Kayleen Mckay Primary [...] Mckay Referring Provider ARDEN Campos Attending Provider [phone] Simeon Delaney Attending Provider Kayleen Mckay MD Primary Care Provider REFERRED, SELF Referring Unavailable MINERVA HESTER Attending Unavailable KAYLEEN MCKAY Primary Care Unavailable EDITH PABLO Attending Unavailable KAYLEEN MCKAY Primary Care Unavailable EDITH PABLO Referring Unavailable EDITH PABLO Attending Unavailable KAYLEEN MCKAY Referring Unavailable KAYLEEN MCKAY Primary Care Unavailable Dr. Kayleen Mckay Primary Care Provider Dr. Kayleen Mckay Referring Provider Jamil PA, PA Rick Attending Provider Kristy HER, PA Nilton Perez Attending Provider Kayleen Mckay MD Primary Care Provider Jay Byrd MD Unavailable Edith Pablo MD Unavailable Care Physician, No Primary Primary Care Provider Unavailable Dr. Len Haile DO Attending Provider Dr. Len Haile DO Emergency Provider Dr. Frankie Mcdaniel DO Emergency Provider Holland SANTIAGO, Dr. Ho Attending Provider Dr. Georgia Lino MD Referring Provider Nena Méndez CNM Attending Provider Nena Méndez CNM Referring Provider Dr. Yobany Romero MD Attending Provider Dr. Yobany Romero MD Referring Provider KAYLEEN MCKAY Primary Care Unavailable JARETT WAITE Admitting Unavailable JARETT WAITE Attending Unavailable KAYLEEN MCKAY Primary Care Unavailable Care Physician, No Primary Primary Care Provider Unavailable Yobany Romero Attending Unavailable Yobany Romero Referring Unavailable Care Physician, No Primary Primary Care Unava ilable Rubio Paulino Attending Unavailable Rubio Paulino Referring Unavailable Care Physician, No Primary Primary Care Unava ilable Care Physician, No Primary Primary Care Unava ilable Len Haile Attending Unavailable Kayleen Mckay Primary Care Unavailable Antoine Dodson Attending Unavailable Nena Méndez Attending Unavailable Nena Méndez Referring Unavailable Care Physician, No Primary Primary Care Unava ilable Georgia Lino Attending Unavailable Georgia Lino Referring Unavailable Care Physician, No Primary Primary Care Unava ilable Mckay, Kayleen Primary Care Unavailable Mckay, Kayleen Referring Unavailable Nilton Garcia Attending Unavailable Georgia Lino Referring Unavailable Cailin Joy Attending Unavailabl e Care Physician, No Primary Primary Care Unava ilable Rubio Paulino Attending Unavailable Rubio Paulino Referring Unavailable Care Physician, No Primary Primary Care Unava ilable Mckay, Kayleen Primary Care Unavailable MckayClaribele Referring Unavailable Nilton Garcia Attending Unavailable Rick Campos Attending Unavailable Care Physician, No Primary Primary Care Unava ilable Care Physician, No Primary Referring Unava ilable Georgia Lino Referring Unavailable Care Physician, No Primary Primary Care Unava ilable Georgia Lino Attending Unavailable KAYLEEN MCKAY Primary Care Unavailable NINFA, ANGIE Referring Unavailable MCKAYKAYLEEN Primary Care Unavailable MILLY SINGH Attending Unavailable MCKAYKAYLEEN ЕЛЕНА Primary Care Unavailable NINFA, ANGIE Referring Unavailable MARTHA SANTAMARIA Attending Unavailable KAYLEEN MCKAY Primary Care Unavailable GEORGIA LINO Attending Unavailable KAYLEEN MCKAY ЕЛЕНА Primary Care Unavailable GEORGIA LINO Attending Unavailable KAYLEEN MCKAY ЕЛЕНА Primary Care Unavailable MARTHA SANTAMARIA Referring Unavailable MCKAYKAYLEEN Primary Care Unavailable MCKAYKAYLEEN ЕЛЕНА Primary Care Unavailable NINFA, ANGIE Referring Unavailable KAYLEEN MCKAY Primary Care Unavailable GEORGIA LINO Attending Unavailable KAYLEEN MCKAY Primary Care Unavailable NINFA, ANGIE Attending Unavailable CLARIBEL MCKAYE ЕЛЕНА Primary Care Unavailable ARMAAN BYRDIN Z Referring Unavailable MCKAYKAYLEEN ЕЛЕНА Primary Care Unavailable EDITH PABLO Referring Unavailable ARMAAN BYRDIN Z Attending Unavailable KAYLEEN MCKAY ЕЛЕНА Primary Care Unavailable ARMAAN BYRDIN Z Referring Unavailable KAYLEEN MCKAY Primary Care Unavailable GEORGIA LINO Attending Unavailable CLARIBEL MCKAYE ЕЛЕНА Primary Care Unavailable ESCOBAR SANTAMARIASSICA Referring Unavailable MARTHA SANTAMARIA Attending Unavailable KAYLEEN MCKAY ЕЛЕНА Primary Care Unavailable ARMAAN BYRDIN Z Attending Unavailable KAYLEEN MCKAY ЕЛЕНА Primary Care Unavailable MICHELLE JAY Z Referring Unavailable MCKAYKAYLEEN ЕЛЕНА Primary Care Unavailable CONY CARDONA Referring Unavailable MCKAYKAYLEEN ЕЛЕНА Primary Care Unavailable MICHELLE, JAY Z Referring Unavailable MCKAY, KAYLEEN ЕЛЕНА Primary Care Unavailable GEORGIA LINO Attending Unavailable MCKAYCLARIBELE ЕЛЕНА Primary Care Unavailable YOBANY ROMERO Attending Unavailable MCKAY, KAYLEEN ЕЛЕНА Primary Care Unavailable MILLY SINGH Attending Unavailable NENA MÉNDEZ Attending Unavailable MCKAY, KAYLEEN ЕЛЕНА Primary Care Unavailable MCKAY, KAYLEEN ЕЛЕНА Primary Care Unavailable SHARA MARTINEZ Attending Unavailable MCKAY, KAYLEEN ЕЛЕНА Primary Care Unavailable GEORGIA LINO Attending Unavailable MCKAY, KAYLEEN ЕЛЕНА Primary Care Unavailable MARTHA SANTAMARIA Attending Unavailable MCKAY, KAYLEEN ЕЛЕНА Primary Care Unavailable MARTHA SANTAMARIA Referring Unavailable MCKAY, KAYLEEN ЕЛЕНА Primary Care Unavailable MILLY SINGH Attending Unavailable MCKAY, KAYLEEN ЕЛЕНА Primary Care Unavailable NENA MÉNDEZ Attending Unavailable MCKAY, KAYLEEN ЕЛЕНА Primary Care Unavailable GEORGIA LINO Attending Unavailable MCKAY, KAYLEEN ЕЛЕНА Primary Care Unavailable GEORGIA LINO Attending Unavailable MCKAY, KAYLEEN ЕЛЕНА Primary Care Unavailable AMINAH ESCOBAR Attending Unavail able MCKAYCLARIBELE ЕЛЕНА Primary Care Unavailable ANGIE OCASIO Referring Unavailable Allergies Allergy Classification Reported Allergen(s) Allergy Type Date of Onset Reaction(s) Facility (20 sources) Lactose; Translations: [LACTOSE] Drug Allergy 2 GI Upset [facility] (1 source) MILK-RELATED COMPOUNDS; Translations: [MILK-RELATED COMPOUNDS] Propensity to adverse reactions to drug (disorder) [facility] Repository (20 sources) Adhesive agent; Translations: [ADHESIVE] Drug Allergy 4 [facility] Comment on above: holter patches (1 source) Adhesive agent Drug allergy (disorder) 5 [facility] Repository (1 source) Lactose Drug Allergy 5 [facility] Repository Medications Current Medications Medication Drug Class(es) Dates Sig (Normalized) Sig (Original) acetaminophen 325 mg oral tablet (11 sources) Start: 12-08-2021 take 1 tablet by [...] (3 sources) Histamine-1 Receptor Antagonist Start: 08-07-19 End: 12-24-19 Levocetirizine 5 mg tablet Take [...] Active Comment on above: Take by mouth. ondansetron 4 mg disintegrating oral tablet (20 sources) Serotonin-3 Receptor Antagonist Start: take 1 tablet by mouth every eight hours as needed for nausea Ondansetron 4 mg tablet,disintegrati ng Active 4 mg PO EVERY 8 HOURS [...] pantoprazole 20 mg delayed release oral tablet (20 sources) Proton Pump Inhibitor Start: 06-13-2024 take [...] () 28 mg iron- 800 mcg tablet (3 sources) Start: 07-14-2024 Pnv Cmb#95-Ferrous Fumarate-Fa () 28 mg iron- 800 mcg tablet Active 1 {tbl} PO DAILY July 14, 2024 12:00am [id number] acid ( 19) 29 mg iron- 1 mg (20 sources) Start: 05-02-2024 take 1 tablet by mouth once daily [id number] acid ( 19) 29 mg iron- 1 [...] tablet Discontinued 1 {tbl} PO Q12H 20 January 10, 2024 1:00am January 19, 2024 1:00am January 20, 2024 1:09am Start: 06-15-2023 End: 06-25-2023 Amoxicillin-Pot Clavulanate 875-125 mg tablet Discontinued 1 {tbl} PO Q12H 20 June 15, 2023 12:00am June 24, 2023 12:00am June 25, 2023 12:05am Start: 01-10-2021 End: 01-20-2021 Amoxicillin-Pot Clavulanate (Augmentin) 875-125 mg tablet Discontinued 1 {tbl} PO Q12H 20 January 10, 2021 1:00am January 19, 2021 1:00am [...] / diphenoxylate hydrochloride 2.5 mg oral tablet (8 sources) Anticholinergic, Cholinergic Muscarinic Antagonist, Antidiarrheal Start: 10-22-2022 End: 08-10-2023 Diphenoxylate-Atropine 2.5-0.025 mg tablet Discontinued {tbl} October 22, 2022 12:00am August 10, 2023 10:44am Start: 10-22-2022 Diphenoxylate- Atropine Active TABLET October 22, 2022 12:00am bisoprolol fumarate 5 mg oral tablet (5 sources) beta-Adrenergic Reuben Start: 08-10-2023 End: 07-14-2024 take 1 tablet by mouth once daily Bisoprolol Fumarate 5 mg tablet Discontinued 5 mg PO DAILY August 10, 2023 12:00am July 14, 2024 2:45pm cefdinir 300 mg oral capsule (10 sources) Cephalosporin Antibacterial Start: 03-19-2022 End: 10-22-2022 take 1 capsule by mouth twice daily Cefdinir 300 mg capsule Discontinued 300 mg PO TWICE A DAY March 19, 2022 1:00am October 22, 2022 5:47pm cephalexin 500 mg oral capsule (13 sources) Cephalosporin Antibacterial Start: 02-08-2021 End: 02-18-2021 take 1 capsule by mouth every twelve hours Cephalexin 500 mg capsule Discontinued 500 mg PO Q12H 22 12February 08, 2021 1:00am February 17, 2021 1:00am February 18, 2021 1:02am cyclobenzaprine hydrochloride 5 mg oral tablet (11 sources) Muscle Relaxant Start: 12-07-2021 End: 03-16-2022 take 1 tablet by mouth at bedtime as needed for muscle spasms Cyclobenzaprine 5 mg tablet Discontinued 5 mg PO AT BEDTIME as needed for muscle spasm December 07, 2021 12:00am March 16, 2022 10:04am dicyclomine hydrochloride 10 mg oral capsule (8 sources) Anticholinergic Start: 10-22-2022 End: 08-10-2023 Dicyclomine 10 mg capsule Discontinued mg October 22, 2022 12:00am August 10, 2023 10:44am Start: 10-22-2022 Dicyclomine Ac tive MG October 22, 2022 12:00am Ethinyl Estradiol / norgestimate (14 sources) Progestin, Estrogen Start: 12-25-2018 End: 04-14-2023 [...] daily. fexofenadine hydrochloride 180 mg oral tablet (5 sources) Histamine-1 Receptor Antagonist Start : 08-09 End: 07-14 take 1 tablet by mouth once daily as needed Fexofenadine (Raquel Allergy) 180 mg tablet Discontinued 180 mg PO DAILY as needed August 10, 2023 12:00am July 14, 2024 2:45pm fluticasone propionate 0.05 mg/actuat metered dose nasal spray (5 sources) Corticosteroid Start : 01-09 End: 07-14 take 50 ug nasal route once daily Fluticasone Propionate (Flonase Allergy Relief) 50 mcg/actuation spray,suspension Discontinued 2 NMA INTRANASAL daily January 10, 2024 1:00am July 14, 2024 2:45pm administer into each nostril methylPREDNISolone 4 mg oral tablet (11 sources) Corticosteroid Start : 09-26 End: 10-02 take 1 tablet by mouth once Methylprednisolone (Medrol (Pineda)) 4 mg tablets,dose pack Discontinued 4 mg PO per package directions 23 08September 26, 2021 12:00am October 01, 2021 12:00am October 02, 2021 12:04am nitrofurantoin, macrocrystals 25 mg / nitrofurantoin, monohydrate 75 mg oral capsule (12 sources) Nitrofuran Antibacterial Start : 07-14 End: 08-07 take 1 capsule by mouth twice daily at mealtime Nitrofurantoin Monohyd/M-Cryst (Macrobid) 100 mg capsule Discontinued 100 mg PO TWICE A DAY 12 07July 14, 2024 12:00am August 07, 2024 4:45pm must administer with a meal/food omeprazole 10 mg delayed release oral capsule (17 sources) Proton Pump Inhibitor Start : 06-04 End: 06-13 take 1 capsule by mouth once daily [...] Date Documented Da te Episodic/Chronic Abdominal pain (17 sources) Abdominal pain; Translations: [Unspecified abdominal pain] 10-22-2022 Episodic Anxiety disorders (20 sources) Mixed anxiety and depressive disorder; Translations: [Other specified anxiety disorders] Onset: 01-31-2021 01-14-2024 Chronic Cardiac dysrhythmias (20 sources) Multiple premature ventricular complexes; Translations: [Ventricular premature depolarization] Onset: 12-24-2023 11-13-2023 Chronic E Codes: Fall (6 sources) Fall; Translations: [Unspecified fall, initial encounter] 07-06-2023 Episodic Early or threatened labor (20 sources) Uterine contractions present; Translations: [False labor, unspecified] Onset: 07-14-2024 07-14-2024 Episodic Immunizations and screening for infectious disease (13 sources) Contact with and (suspected) exposure to [...] third trimester] 07-07-2024 Episodic Other complications of (8 sources) High risk ; Translations: [Supervision of high risk , unspecified, third trimester] 07-11-2024 Episodic Other complications of (6 sources) Uterine contractions problem; Translations: [Other specified related conditions, unspecified trimester] 06-16-2024 Episodic Other complications of (1 source) Injury, poisoning and certain other consequences of external causes complicating , third trimester; Translations: [Injury, poisoning and certain other consequences of external causes complicating , third trimester] Onset: 08-14-2024 Episodic Other complications of (1 source) Supervision of high risk , unspecified, third trimester; Translations: [Supervision of high risk in third trimester (HCC)] Onset: 07-24-2024 Episodic Other complications of (2 sources) Other specified related conditions, third trimester; Translations: [Low back pain during in third trimester (HCC)] Onset: 06-04-2024 Episodic Other connective tissue disease (1 source) Muscle wasting and atrophy, not elsewhere classified, unspecified thigh; Translations: [Muscular wasting and disuse atrophy, not elsewhere classified] Episodic Other connective tissue disease (6 sources) Patellar tendonitis; Translations: [Patellar tendinitis, right knee] 09-26-2021 Episodic Other connective tissue disease (2 sources) Patellar tendinitis, right knee; Translations: [Patellar tendinitis] Episodic Other connective tissue disease (5 sources) Tendonitis of right patellar tendon; Translations: [Patellar tendinitis, right knee] 09-26-2021 Episodic Other female genital disorders (1 source) Vaginal discharge; Translations: [Other specified noninflammatory disorders of vagina] 07-14-2024 Episodic Other female genital disorders (1 source) Other specified noninflammatory disorders of vagina; Translations: [Vaginal discharge] Onset: 07-14-2024 Episodic Other gastrointestinal disorders (8 sources) Constipation; Translations: [Constipation, unspecified] 10-22-2022 Episodic Other gastrointestinal disorders (1 source) Heartburn; Translations: [Heartburn during in third trimester (HCC)] Onset: 06-04-2024 Episodic Other injuries and conditions due to external causes (2 sources) Injury of right knee; Translations: [Unspecified injury of right lower leg, initial encounter] 03-18-2024 Episodic Other lower respiratory disease (9 sources) Dyspnea; Translations: [Shortness of breath] 06-15-2024 [...] in joint, shoulder region] 04-14-2023 Episodic Other screening for suspected conditions (not mental disorders or infectious disease) (7 sources) Cancer cervix screening status; Translations: [Encounter for screening for malignant neoplasm of cervix] Onset: 03-28-2024 01-14-2024 Episodic Other upper respiratory infections (20 sources) Acute ethmoidal sinusitis; Translations: [Acute ethmoidal sinusitis, unspecified] Episodic Otitis media and related conditions (12 sources) Otitis media; Translations: [Otitis media, unspecified, right ear] 03-19-2022 Episodic Residual codes; unclassified (13 sources) Pain; Translations: [Pain, unspecified] 05-05-2021 Episodic [...] of ] 06-04-2024 Episodic Residual codes; unclassified (7 sources) Gestation period, 29 weeks; Translations: [29 weeks gestation of ] 06-16-2024 Episodic Residual codes; unclassified (1 source) Gestation period, 32 weeks; Translations: [32 weeks gestation of ] 07-07-2024 Episodic Residual codes; unclassified (20 sources) Gestation period, 33 weeks; Translations: [33 weeks gestation of ] Onset: 07-17-2024 07-11-2024 Episodic Residual codes; unclassified (1 source) Gestation period, 35 weeks; Translations: [35 weeks gestation of ] 07-29-2024 Episodic Residual codes; unclassified (1 source) Gestation period, 37 weeks; Translations: [37 weeks gestation of ] 08-11-2024 Episodic Residual codes; unclassified (1 source) Gestation period, 38 weeks; Translations: [38 weeks gestation of ] 08-19-2024 Episodic Residual codes; unclassified (1 source) 39 weeks gestation of ; Translations: [39 weeks gestation of (HCC)] Onset: 08-22-2024 Episodic Residual codes; unclassified (1 source) 38 weeks gestation of ; Translations: [38 weeks gestation of (HCC)] Onset: 08-19-2024 Episodic Residual codes; unclassified (1 source) 37 weeks gestation of ; Translations: [37 weeks gestation of (HCC)] Onset: 08-11-2024 Episodic Residual codes; unclassified (1 source) 34 weeks gestation of ; Translations: [34 weeks gestation of (HCC)] Onset: 07-24-2024 Episodic Residual codes; unclassified (1 source) 33 [...] weeks gestation of (HCC)] Onset: 06-13-2024 Episodic Residual codes; unclassified (1 source) Gestation period, 39 weeks; Translations: [39 weeks gestation of ] 08-22-2024 Episodic Sprains and strains (20 sources) Strain of knee; Translations: [Strain of [...] Date Documented Da te Episodic/Chronic Administrative/social admission (6 sources) Patient encounter status; Translations: [Encounter for pre-employment examination] Onset: 10-23-2023 10-17-2023 Episodic Cardiac dysrhythmias (15 sources) Tachycardia; Translations: [Tachycardia, unspecified] Onset: 12-18-2023 12-24-2023 Episodic Nonspecific chest pain (19 sources) Chest pain; Translations: [Chest pain, unspecified] [...] right knee, initial encounter] Onset: 03-18-2024 Episodic Other and delivery including normal (20 sources) with uncertain dates; Translations: [Encounter for supervision of normal , unspecified, unspecified trimester] Onset: 01-14-2024 01-14-2024 Episodic Residual codes; unclassified (19 sources) Gestation period, 20 weeks; Translations: [20 weeks gestation of ] Onset: 02-18-2024 04-14-2024 Episodic Residual codes; unclassified (20 sources) Gestation period, 31 weeks; Translations: [31 [...] Results Test Name Value Interpretation Reference Range Facil ity URINE OB DIP B/Oon Glucose Ql (U) Negative Neg mg/dL [facility] Interpretation and review of laboratory results Normal [facility] Protein.monoclonal (U) [Mass/Vol] Negative Neg mg/dL [facility] CNPNon 08-12-2024 CNPN Telephone (OBGYWM) KENIAGREGG ([id number]) 4 F Date Time Provider Department 08/12/24 YOBANY ROMERO OBGYWM During your visit today, we recorded the following information about you: Georgia Wren RN 08/12/2024 12:03 PM Signed 37w4d Patient called stating that she has been having light spotting and cramping since cervical exam yesterday. Advised this can be normal as long as pain is not severe or having bleeding. Patient states her pelvic pressure will be an 8 when standing or moving around. She is more comfortable laying down. She did kick counts and had 10 movements in 2 hours. Do you want patient to come in to the office to be seen or would you rather her go to [facility]? Thank you. PEACE Beatty Karmon, MD 08/12/2024 12:10 PM Signed The pelvic pressure with standing is a common occurrence. I would recommend rest and hydration. If having regular contractions, red bleeding beyond 24 hours or LOF should go to [facility]. MD Siena Pires Jennifer, RN 08/12/2024 12:56 PM Signed Patient notified. Voiced understanding. Georgia Wren RN Allergies As of Date: 08/12/2024 Noted Allergy Reaction ADHESIVE 10/23/2023 4 - Hives LACTOSE 10/23/2023 8 - GI Upset Date Reviewed: 08/11/2024 Reviewed by: Shelli Chapin MA - Fully Assessed Reason for Visit: OB Cramping [Other] Prescriptions as of 08/12/2024 - nitrofurantoin monohydrate and macrocrystal (MACROBID) 100 mg capsule Take 100 mg by mouth two times a day with meals. - pantoprazole DR (PROTONIX) 20 mg tablet Take 1 tablet by mouth once daily. - [id number] acid ( 19) 29 mg iron- 1 [...] by mouth. Problem List As Of Date 08/12/2024 Noted Resolved Encounter for supervision of normal [...] 07/17/2024 Encounter Status:Closed by GEORGIA WREN on 08/12/24 [facility] ROUTINE, GROUP B ST REPTOCOCCUS BY PCRon 08-11-2024 ROUTINE, GROUP B STREPTOCOCCUS BY PCR Not detected [facility] Comment on above: Performed By: #### 5 [id number] #### [facility] CLIA [id number] [address] [place] [address] OF ANDRE Jose Luis 08-09-2024 RAINER Negative Normal [facility] Comment on above: Result Comment: Storm Geiger Study Reference: Negative No cells seen. TESTING PERFORMED AT [facility]. ORIGINAL REPORT ON FILE IN LAB CONTAINS ADDITIONAL TEST SITE INFORMATION. AMENDED REPORT 08/09/24 0738 DELVIN GEIGER previously reported as: Ramakrishna Geiger Study Reference: Negative No cells seen. TESTING PERFORMED AT [facility]. ORIGINAL REPORT ON FILE IN LAB CONTAINS ADDITIONAL TEST SITE INFORMATION. Performed By: #### L 803.2300 #### [facility] [address] [place], [place] [address]tai. [place], [place], [id number] 12 Lead EKGon 08-07-2024 [facility] [address] [place], [place] [address] [address] 12 Lead EKG 08/07/242204 MR#: [id number] Acct: [id number] Name: GREGG ZUNIGA Rep #: [id number] : 2000 24 From: Cailin Joy MD Attending Dr: Dr. Georgia Lino MD Status: D EP CLI Ordering Dr: Georgia Lino MD Date: 08/07/24 Location: [facility] Sex: F C Admitted: Test Reason : CHEST PAIN Blood Pressure : */* mmHG Vent. Rate : 85 BPM Atrial Rate : 85 BPM P-R Int : 134 ms QRS Dur : 68 ms QT Int : 354 ms P-R-T Axes : 17 49 27 degrees QTcB Int : 421 ms Normal sinus rhythm Nonspecific T wave abnormality Abnormal ECG When compared with ECG of 15-Jun-2024 21:25, No significant change was found Confirmed by MARKO SANTIAGO, JOSE M ([id number]), editor greeting card MINERVA HARRIS ([id number]) on 08/11/2024 6:56:33 AM Referred By: Georgia Lino Confirmed By: JOSE M JOY MD 08/11/24 0656 Date Cailin Joy MD CC: Dr. Georgia Lino MD; No Primary Care Physician Signed [facility] [id number] 08-07-2024 ABO and Rh group Nom (Bld) Blood group O Rh(D) negative Normal [facility] Comment on above: Performed By: #### L 503.7505, L504.2610, L501.2450, L100.0100, L500.4050 #### [facility] [address] [place], [place], [id number] BRho(D) IGon 08-07-2024 Rho(D) IG Normal [facility] Comment on above: Result Comment: [id number] Rho(D) IG PRSMD TRFSD 08/07/24 193 Performed By: #### L 503.7505, L504.2610, L501.2450, L100.0100, L500.4050 #### [facility] [address] [place], [address] [facility] GREGG ZUNIGA ([id number]) 4 F Date Time Provider Department 08/07/24 GEORGIA LINO During your visit today, we recorded the following information about you: Mary Grace Gaviria RN 08/07/2024 3:34 PM Signed Patient 36w6d calling with concerns after falling on her abdomen after tripping over her dog. Patient states she fell around 3 pm and is now having pain and cramping in her abdomen and also concerns of decreased movement. Patient denies any bleeding or leaking of fluid. Patient instructed to go to [facility] for evaluation. Patient voiced understanding. [facility] notified. Mary Grace Gaviria RN Allergies As of Date: 08/07/2024 Noted Allergy Reaction ADHESIVE 10/23/2023 4 - Hives LACTOSE 10/23/2023 8 - GI Upset Date Reviewed: 07/29/2024 Reviewed by: Georgia Lino MD - Fully Assessed Reason for Visit: OB-fall [Other] Prescriptions as of 08/07/2024 - nitrofurantoin monohydrate and macrocrystal (MACROBID) 100 mg capsule Take 100 mg by mouth two times a day with meals. - pantoprazole DR (PROTONIX) 20 mg tablet Take 1 tablet by mouth once daily. - [id number] acid ( 19) 29 mg iron- 1 [...] by mouth. Problem List As Of Date 08/07/2024 Noted Resolved Encounter for supervision of normal [...] of (HCC) [Z3A.33] 07/17/2024 Encounter Status:Closed by MARY GRACE GAVIRIA on 08/07/24 [facility] OB Triage Physician Noteon 0 08-07-2024 OB Triage Physician Note [facility] Medical Records Department [address] [place] [address] OB Triage Physician Note 08/07/241914 MR#: [id number] Acct: [id number] Name: GREGG ZUNIGA Rep #: [id number] : 2000 24 From: Georgia Lino MD PCP: Care Physician,No Primary Status:DEP CLI Y Location: [facility] HPI - General General Date of Admission: 08/07/24 Date of Service: 08/07/24 Chief Complaint: fall HPI Narrative GREGG ZUNIGA, is a 24 F who presents after falling into her couch and hitting her upper abd. Good movement No bleeding. Does not feel contractions. RH negative. Had rhogam at 36 weeks. Had an odd reaction after rhogam at 28 week.Chest pressure and nausea. Occurred again this visit with rhogam. EKG normal sinus. SpO2 98% Maternal Data Information Final JEM: 08/29/24 Gestational age: 36+6 [facility] Medical History Physical exam, pre-employment Palpitations Chest [...] chewable tablet 1 tab PO DAILY 07/14/24 08/06/24 H istory (Children's Aspirin) metoprolol succinate 25 mg 25 mg PO DAILY 07/14/24 08/06/24 H istory tablet,extended release 24 hr vit no.95-ferrous 1 tab PO DAILY 07/14/24 08/06/24 H istory fumarate 28 mg-folic acid 800 mcg tablet () pantoprazole 20 mg tablet,delayed 20 mg PO DAILY 08/07/24 08/07/24 History release (Protonix) sertraline 25 mg tablet (Zoloft) 25 mg PO DAILY 08/07/24 08/06/24 H istory Allergy/AdvReac Type Severity Reaction Status Date / Time lactose Allergy Mild Unknown Verified 08/07/24 16:44 adhesive (adhesives) AdvReac Severe Rash Verified 08/07/24 16:44 Family History Grandmother Heart disease Parkinsons Cancer [...] Decelerations:: None NST Reactive:: Yes Uterine Activity:: irregular Assessment Plan (1) 36 weeks gestation of : (2) Abdominal trauma: QUALIFIERS: Encounter type: initial encounter Qualified Code(s): S39.91XA - Unspecified injury of abdomen, initial encounter (3) Rh negative state in antepartum period: PLAN: Plan Prolonged monitoring. Rhogam given 08/07/242253 Date Georgia Lino MD Cosigner Signature (if applicable): Date _ CC: Dr. Georgia Lino MD; No Primary Care Physician Signed Normal [facility] Type AND Screenon 08-07-2024 A1 CELL Not performed Normal [facility] Comment on above: Order Comment: Has p t arrived? [id number] fell on abdomen Result Comment: Canc elled via OM: Order Changed Performed By: #### L 503.7505, L504.2610, L501.2450, L100.0100, L500.4050 #### [facility] [address] [place], [place], [id number] Ab SCREEN GEL Not performed Normal [facility] Comment on above: Order Comment: Has p t arrived? [id number] fell on abdomen Result Comment: Canc elled via OM: Order Changed Performed By: #### L 503.7505, L504.2610, L501.2450, L100.0100, L500.4050 #### [facility] [address] [place], [address] ABO and Rh group Nom (Bld) Test Not Performed Normal [facility] Comment on above: Order Comment: Has p t arrived? [id number] fell on abdomen Result Comment: Canc elled via OM: Order Changed Performed By: #### L 503.7505, L504.2610, L501.2450, L100.0100, L500.4050 #### [facility] [address] [place], [address] ANTI A Not performed Normal [facility] Comment on above: Order Comment: Has p t arrived? [id number] fell on abdomen Result Comment: Canc elled via OM: Order Changed Performed By: #### L 503.7505, L504.2610, L501.2450, L100.0100, L500.4050 #### [facility] [address] [place], [address] ANTI B Not performed Normal [facility] Comment on above: Order Comment: Has p t arrived? [id number] fell on abdomen Result Comment: Canc elled via OM: Order Changed Performed By: #### L 503.7505, L504.2610, L501.2450, L100.0100, L500.4050 #### [facility] [address] [place], [address] ANTI D Not performed Normal [facility] Comment on above: Order Comment: Has p t arrived? [id number] fell on abdomen Result Comment: Canc elled via OM: Order Changed Performed By: #### L 503.7505, L504.2610, L501.2450, L100.0100, L500.4050 #### [facility] [address] [place], [address] B CELLS Not performed Normal [facility] Comment on above: Order Comment: Has p t arrived? [id number] fell on abdomen Result Comment: Canc elled via OM: Order Changed Performed By: #### L 503.7505, L504.2610, L501.2450, L100.0100, L500.4050 #### [facility] [address] [place], [address] [facility] ([id number]) 4 F Date Time Provider Department 07/17/24 [...] leaking fluid since Sunday. States she told [facility] nurse, but swab was not done. Spoke with DM regarding plan of care. Offered patient a visit here, go to [facility] (risk that baby could be transported if she delivers) or go to [facility]. For peace of mind, patient said, she is going to [facility]. JEZ Wren, Miki Jacobo RN 07/17/2024 2:45 PM Signed Pt calls back stating she went to [facility]. Was told she was 1cm [...] doing and to call the office/return to [facility] if she has LOF/vaginal bleeding, decreased movement, increase in frequency of contractions-increas ed pain despite measures above, or abdominal pain. Pt voiced understanding. Informed her message would be forwarded to RR to inform her of this and see if any further recommendations are needed. Miki Yuo, Shara Peerra MD 07/17/2024 4:25 PM Signed Called and [...] 1 tablet by mouth once daily. - et067-odqj-knfvw acid ( 19) 29 mg iron- 1 [...] Status:Closed by GEORGIA WREN on 07/17/24 [facility] ED Triage Noteon 07-17-2024 ED Triage Note HNO ID: [id number] Author: MILES MCKAY APRN.CNP Service: Emergency Medicine [...] placed in this encounter. SIGNATURE: Miles Mckay APRN.CNP Normal [facility] OB Triage Physician Noteon 0 07-17-2024 OB Triage Physician Note [facility] Medical Records Department [address] [place] [address] OB Triage Physician Note 07/17/24 0857 MR#: [id number] Acct: [id number] Name: GREGG ZUNIGA Rep #: [id number] : 2000 24 From: Shara Martinez MD PCP: Care Physician,No Primary Status:DEP CLI Y Location: [facility] HPI - General General Date of Admission: 07/15/24 Date of Service: 07/15/24 Chief Complaint: abd pain HPI Narrative GREGG ZUNIGA, is a 24 F who presents c/o abdominal pain, contractions Maternal Data Information Final JEM: 08/29/24 Gestational age: 33 4/7 [facility] Medical History Physical exam, pre-employment Palpitations Chest [...] MD; No Primary Care Physician Signed Normal [facility] Urine Cultureon 07-16-2024 [facility] Mixed Gram Positive Organisms [place] Count 11,000-25,000 MIXC Mixed contaminants. Submit a new specimen if indicated. Normal [facility] Comment on above: Performed By: #### L 503.7505, L504.2610, L501.2450, L100.0100, L500.4050 #### [facility] [place], [address] [facility] 07-15-2024 [facility] Telephone (CARDMN) GREGG ZUNIGA ([id number]) 4 F Date Time Provider Department 07/15/24 JAY BYRD During your visit today, we recorded the following information about you: Maribel Joaquin 07/15/2024 11:23 AM Signed July 15, 2024 Patient Contact Number: [phone] (home) [phone] (cell) Patient last seen within the last year: Yes Reason for Call: Dizziness and Other Issue: Pt is 33.5 weeks . States she experience having contractions and went to local ED ([facility]) yesterday and today and was sent home. [...] 1 tablet by mouth once daily. - zm843-cudz-wwauj acid ( 19) 29 mg iron- 1 [...] Status:Closed by NACHO KWAN on 07/15/24 [facility] Amorphous sediment detection in urine sediment by light microscopyOrdered By: Nena Méndez on 07-14-2024 Amorphous sediment LM Ql (Urine sed) 2+ [facility] BACTERIAL VAGINOSIS NAATon 0 07-14-2024 Lactobacillus crispatus+gasseri+jense patrick + Gardnerella vaginalis + Atopobium vaginae rRNA RICHARD+probe Ql (Vag fld) Not detected Normal Not detected [facility] Comment on above: Order Comment: Speci men Type: SWABOrdering Facility: [facility] Address: [address] [place] [address] Performed By: #### C VTV, BVAMP ####[facility] LABCLIA [id number] [place] [address] [place] Bilirubin Test strip Ql (U)O rdered By: Nena Méndez on 07-14-2024 Bilirubin Ql (U) Negative Negative [facility] IRENE/TRICHOMONAS NAATon 0 07-14-2024 C. glabrata RNA RICHARD+probe Ql (Vag fld) Not detected Normal [facility] detected [facility] Comment on above: Order Comment: Speci men Type: SWABOrdering Facility: [facility] Address: [address] [place] [address] Performed By: #### C VTV, BVAMP ####[facility] LABCLIA [id number] [address] [place] Irene sp DNA RICHARD+probe Ql (Vag fld) Not detected Normal [facility] detected [facility] Comment on above: Order Comment: Speci men Type: SWABOrdering Facility: [facility] Address: [address] [place] [address] Result Comment: The Irene species group target includes C. albicans, C. tropicalis, C. parapsilosis, and C. dubliniensis. Performed By: #### C VTV, BVAMP ####[facility] LABCLIA [id number] [address] [facility] T. vaginalis DNA RICHARD+probe Ql (Unsp spec) Not detected Normal Not detected [facility] Comment on above: Order Comment: Speci men Type: SWABOrdering Facility: [facility] Address: [address] [place] [address] Performed By: #### C VTV, BVAMP ####[facility] LABCLIA [id number] [place] [address] [place] Ketones Test strip Ql (U)Ord ered By: Nena Méndez on 07-14-2024 Ketones Ql (U) Negative Negative [facility] Microscopic analysis of urin e for red blood cells (RBC)Ordered By: Nena Méndez on 07-14-2024 Microscopic analysis of urine for red blood cells (RBC) 0 SEEN /hpf 0-5 [facility] Mucus LM Ql (Urine sed)Order ed By: Nena Méndez on 07-14-2024 Mucus Ql (Urine sed) 0 SEEN /hpf [facility] Nitrite Test strip Ql (U)Ord ered By: Nena Méndez on 07-14-2024 Nitrite Ql (U) Negative Negative [facility] OB Triage Physician Noteon 0 07-14-2024 OB Triage Physician Note [facility] Medical Records Department [address] [place] [address] OB Triage Physician Note 07/14/24 1630 MR#: [id number] Acct: [id number] Name: GREGG ZUNIGA SCOUT Rep #: [id number] : 2000 24 From: Milly Singh DO PCP: Care Physician,No Primary Status:REG CLI Y Location: [facility] HPI - General General Date of Admission: 07/14/24 Date of Service: 07/14/24 Chief Complaint: ctx's HPI Narrative GREGG ZUNIGA, is a 24 F who presents from the office with ctx's. Improved after PO hydration. Spotting yesterday and no bleeding since. No LOF. No urinary symptoms of changes in bowel movements. [facility] Medical History Physical exam, pre-employment [...] thick over several hours. D/c home. 07/14/24 1634 Date Milly Singh DO Cosigner Signature (if applicable): Date _ CC: Dr. Milly Singh, DO; No Primary Care Physician Signed Normal [facility] Protein Test strip Ql (U)Ord ered By: Nena Méndez on 07-14-2024 Protein Ql (U) 30 mg/dl High Negative [facility] Squamous epithelial cells de tection in urine sediment by light microscopyOrdered By: Nena Méndez on 07-14-2024 Epithelial cells.squamous LM Ql (Urine sed) 0-5 SEEN /hpf 5-10 [facility] Urinalysis, Completeon 07-14 WBC 0-5 SEEN Normal 0-5 [facility] Comment on above: Order Comment: CLEAN CATCH Performed By: #### L 503.7505, L504.2610, L501.2450, L100.0100, L500.4050 #### [facility] [address] [place], [address] AMORPHOUS 2+ Normal [facility] Comment on above: Order Comment: CLEAN CATCH Performed By: #### L 503.7505, L504.2610, L501.2450, L100.0100, L500.4050 #### [facility] [address] [place], [address] BACTERIA 2+ /hpf Normal None Seen [facility] Comment on above: Order Comment: CLEAN CATCH Performed By: #### L 503.7505, L504.2610, L501.2450, L100.0100, L500.4050 #### [facility] [address] [place], [address] EPI,SQUAMOUS 0-5 SEEN Normal 5-10 [facility] Comment on above: Order Comment: CLEAN CATCH Performed By: #### L 503.7505, L504.2610, L501.2450, L100.0100, L500.4050 #### [facility] [address] [place], [address] Mucus Ql (Urine sed) 0 SEEN Normal [facility] Comment on above: Order Comment: CLEAN CATCH Performed By: #### L 503.7505, L504.2610, L501.2450, L100.0100, L500.4050 #### [facility] [address] [place], [address] RBC 0 SEEN Normal 0-5 [facility] Comment on above: Order Comment: CLEAN CATCH Performed By: #### L 503.7505, L504.2610, L501.2450, L100.0100, L500.4050 #### [facility] [address] [place], [address] Urine clarityOrdered By: Madan Méndez on 07-14-2024 Clarity (U) Sl. Cloudy Clear [facility] Urine color determinationOrd ered By: Nena Méndez on 07-14-2024 Color (U) Yellow Yellow [facility] Urine cultureOrdered By: Mireille Singh on 07-14-2024 Bacteria identified Cx Nom (U) Positive Abnormal [facility] Urine glucose detectionOrder ed By: Nena Méndez on 07-14-2024 Glucose Ql (U) Normal mg/dl Normal [facility] Urine leukocyte esterase det ection by dipstickOrdered By: Nena Méndez on 07-14-2024 Leukocyte esterase Test strip Ql (U) 25 /ul High Negative [facility] Urine pHOrdered By: Nean Méndez on 07-14-2024 pH (U) 7.0 [pH] 5.0 - 8.0 [facility] Urine sediment bacteria coun t by microscopy (number/high power field)Ordered By: Nena Méndez on 07-14-2024 Bacteria LM.HPF (Urine sed) [#/Area] 2 /[HPF] None Seen [facility] Urine specific gravity measu rementOrdered By: Nena Méndez on 07-14-2024 Specific gravity (U) [Rel density] 1.015 1.002-1.030 [facility] Urine urobilinogen measureme ntOrdered By: Nena Méndez on 07-14-2024 Urobilinogen Ql (U) 4 mg/dl High Normal [facility] White blood cell countOrdere d By: Nena Méndez on 07-14-2024 White blood cell count 0-5 SEEN /hpf 0-5 [facility] CNPNon 07-10-2024 CNPN Telephone (OBGYWM) GREGG ZUNIGA ([id number]) 4 F Date Time Provider Department 07/10/24 NENA MÉNDEZ During your visit today, we recorded the following information about you: Katie Yusuf RN 07/10/2024 8:50 AM Signed Breast pump order received from [employer]. To CP to sign. PEACE Hou Trisha, RN 07/10/2024 [...] 1 tablet by mouth once daily. - nz435-fdfq-vaytz acid ( 19) 29 mg iron- 1 [...] Encounter Status:Closed by KATIE YUSUF on 07/10/24 [facility] C[facility] Telephone (FV3L+D) GREGG ZUNIGA ([id number]) 4 F Date Time Provider Department 07/08/24 FLORIDALMA MASON OB LANDYolis FV3L+D During your visit today, we recorded the following information about you: Allergies As of Date: 07/08/2024 Noted Allergy Reaction ADHESIVE 10/23/2023 4 - Hives LACTOSE 10/23/2023 8 - GI Upset Date Reviewed: 07/07/2024 Reviewed by: Georgia Lino MD - Fully Assessed Reason for Visit: Care Coordination [0123] Cmt: Codi Consult Called pt for scheduled consult, no answer Prescriptions as of 07/08/2024 - pantoprazole DR (PROTONIX) 20 mg tablet Take 1 tablet by mouth once daily. - uc592-kynj-vtryv acid ( 19) 29 mg iron- 1 [...] 31 weeks gestation of (HCC) [Z3A.31] 02/18/2024 Codi [O99.891] 02/19/2024 Rh negative state in antepartum period [O26.899*03/18/2024 Heartburn during in second trimester *06/04/2024 Decreased movements in second trimester (*06/04/2024 06/27/2024 Encounter Status:Closed by BRENDA HENRIQUEZ on 07/08/24 Normal [facility] UA DIP, URINE (POC)on 2024 BILIRUBIN UA (POCT) Negative Negative [facility] CLARITY UA (POCT) Clear [facility] COLOR UA (POCT) Yellow [facility] GLUCOSE UA (POCT) Negative Negative mg/dL [facility] Hemoglobin Ql (U) Negative Negative [facility] Interpretation and review of laboratory results Abnormal [facility] KETONE UA (POCT) Negative Negative mg/dL [facility] LEUKOCYTES UA (POCT) Trace Abnormal Negative [facility] NITRITE UA (POCT) Negative Negative [facility] PH UA (POCT) 6.5 4.5 - 8.0 [facility] Protein Ql (U) Negative Negative mg/dL [facility] SPECIFIC GRAVITY UA (POCT) 1.015 1.005 - 1.030 [facility] UROBILINOGEN UA (POCT) 4 Abnormal Normal E.U./d L [facility] Location:[facility], [address] [facility], [place], [place], [address] [place] [address] POINT OF CARE [facility] CNPNon 06-17-2024 CNPN Telephone (OBGYWM) GREGG ZUNIGA ([id number]) 4 F Date Time Provider Department 06/17/24 GEORGIA LINO During your visit today, we recorded the following information about you: Miki You, RN 06/17/2024 12:02 PM Addendum 29w4d Pt [...] of range. Please advise and will send Wizivahart message to Pt with response. PEACE Osborn [...] Fully Assessed Reason for Visit: Patient Question [3897] Prescriptions as of 06/17/2024 - pantoprazole DR (PROTONIX) 20 mg tablet Take 1 tablet by mouth once daily. - fh160-dyui-qqiyf acid ( 19) 29 mg iron- 1 [...] Status:Closed by MIKI YOU on 06/17/24 [facility] OB Triage Physician Noteon 0 06-16-2024 OB Triage Physician Note [facility] Medical Records Department [address] [place] [address] OB Triage Physician Note 06/16/24 0607 MR#: [id number] Acct: [id number] Name: GREGG ZUNIGA Rep #: [id number] : 2000 24 From: Georgia Lino MD PCP: Care Physician,No Primary Status:DEP CLI Y Location: [facility] HPI - General General Date of [...] MD; No Primary Care Physician Signed Normal [facility] 12 Lead EKGon 06-15-2024 12 Lead EKG [facility] Cardiovascular Services [address] [place] [address] 12 Lead EKG 06/15/245 MR#: [id number] Acct: [id number] Name: GREGG ZUNIGA Rep #: [id number] : 2000 24 From: Rubio Paulino MD Attending Dr: Dr. Georgia Lino MD Status: D EP CLI Ordering Dr: Frankie Mcdaniel DO Date: 5 Location: [facility] Sex: F C Admitted: Test Reason : Blood Pressure : */* mmHG Vent. Rate : 85 BPM Atrial Rate : 85 BPM P-R Int : 138 ms QRS Dur : 70 ms QT Int : 344 ms P-R-T Axes : 41 57 38 degrees QTcB Int : 409 ms Normal sinus rhythm Normal ECG Confirmed by Rubio Paulino ([id number]), editor greeting card MINERVA HARRIS ([id number]) on 06/16/2024 1:15:49 PM Referred By: Georgia Lino Confirmed By: Rubio Paulino 06/16/24 1315 Date Rubio Paulino MD CC: Dr. Frankie Mcdaniel, ; Dr. Georgia Lino MD; No Primary Care Physician Signed Normal [facility] Absolute lymphocyte countOrd ered By: Frankie Mcdaniel on 06-15-2024 Lymphocytes Auto (Unsp spec) [#/Vol] 3.28 10*3/uL 0.83-4.51 [facility] Absolute neutrophil countOrd ered By: Frankie Mcdaniel on 06-15-2024 Neutrophils (Bld) [#/Vol] 9.9 10*3/uL High 2.0-7.7 [facility] Anion gap in Serum or Plasma Ordered By: Frankie Mcdaniel on 06-15-2024 Anion gap [Moles/Vol] 12 mmol/L 5-15 [facility] Automated lymphocyte count a s percentage of total leukocytesOrdered By: Frankie Mcdaniel on 06-15-2024 Lymphocytes/100 WBC Auto (Unsp spec) 21.7 % 19-41 [facility] BUN/creatinine ratioOrdered By: Frankie Mcdaniel on 06-15-2024 Urea nitrogen/Creatinine [Mass ratio] 5.0 mg/mg Low 10-20 [facility] Basophil percentageOrdered B y: Frankie Mcdaniel on 06-15-2024 Basophils/100 WBC (Bld) 0.3 % 0-1 [facility] Bilirubin Test strip Ql (U)O rdered By: Frankie Mcdaniel on 06-15-2024 Bilirubin Ql (U) Negative Negative [facility] Bilirubin, totalOrdered By: Frankie Mcdaniel on 06-15-2024 Bilirubin [Mass/Vol] 0.20 mg/dL 0.00-1.30 [facility] CBC W/Diff, Automatedon 06-03 Absolute Lymph 3.28 X10 3/uL Normal 0.83-4.51 [facility] Comment on above: Performed By: #### L 503.7505, L504.2610, L501.2450, L100.0100, L500.4050 #### [facility] [address] [place], [address] Absolute Neut 9.9 X10 3/uL High 2.0-7.7 [facility] Comment on above: Performed By: #### L 503.7505, L504.2610, L501.2450, L100.0100, L500.4050 #### [facility] [address] [place], [address] Basophils/100 WBC (Bld) 0.3 % Normal 0-1 [facility] Comment on above: Performed By: #### L 503.7505, L504.2610, L501.2450, L100.0100, L500.4050 #### [facility] [address] [place], [address] Eosinophils/100 WBC (Bld) 4.9 % Normal 0-5 [facility] Comment on above: Performed By: #### L 503.7505, L504.2610, L501.2450, L100.0100, L500.4050 #### [facility] [address] [place], [address] Erythrocyte distribution width (RBC) [Ratio] 13.6 % Normal 11.6-14.6 [facility] Comment on above: Performed By: #### L 503.7505, L504.2610, L501.2450, L100.0100, L500.4050 #### [facility] [address] [place], [address] Hematocrit (Bld) [Volume fraction] 38.5 % Normal 37-47 [facility] Comment on above: Performed By: #### L 503.7505, L504.2610, L501.2450, L100.0100, L500.4050 #### [facility] [address] [place], [address] Hemoglobin (Bld) [Mass/Vol] 12.9 g/dL Normal 12.0-15.0 [facility] Comment on above: Performed By: #### L 503.7505, L504.2610, L501.2450, L100.0100, L500.4050 #### [facility] [address] [place], [address] IG% 1.300 High 0.0-0.9 [facility] Comment on above: Result Comment: IG% - Immature Granulocytes (promyelocytes, myelocytes and metamyelocytes) > 1% indicates that a LEFT SHIFT is Present. Performed By: #### L 503.7505, L504.2610, L501.2450, L100.0100, L500.4050 #### [facility] [address] [place], [address] Lymphocytes/100 WBC (Bld) 21.7 % Normal 19-41 [facility] Comment on above: Performed By: #### L 503.7505, L504.2610, L501.2450, L100.0100, L500.4050 #### [facility] [address] [place], [address] MCH (RBC) [Entitic mass] 30.9 pg Normal 27.0-32.0 [facility] Comment on above: Performed By: #### L 503.7505, L504.2610, L501.2450, L100.0100, L500.4050 #### [facility] [address] [place], [address] MCHC (RBC) [Mass/Vol] 33.5 g/dL Normal 32-36 [facility] Comment on above: Performed By: #### L 503.7505, L504.2610, L501.2450, L100.0100, L500.4050 #### [facility] [address] [place], [address] MCV (RBC) [Entitic vol] 92.3 fL Normal 81-99 [facility] Comment on above: Performed By: #### L 503.7505, L504.2610, L501.2450, L100.0100, L500.4050 #### [facility] [address] [place], [address] Monocytes/100 WBC (Bld) 6.4 % Normal 0-10 [facility] Comment on above: Performed By: #### L 503.7505, L504.2610, L501.2450, L100.0100, L500.4050 #### [facility] [address] [place], [address] Neutrophils/100 WBC (Bld) 65.4 % Normal 47-70 [facility] Comment on above: Performed By: #### L 503.7505, L504.2610, L501.2450, L100.0100, L500.4050 #### [facility] [address] [place], [address] Nucleated RBC (Bld) [#/Vol] 0 10*3/uL Normal 0-5 [facility] Comment on above: Performed By: #### L 503.7505, L504.2610, L501.2450, L100.0100, L500.4050 #### [facility] [address] [place], [address] Platelet mean volume (Bld) [Entitic vol] 10.2 fL Normal 6.2-12.0 [facility] Comment on above: Performed By: #### L 503.7505, L504.2610, L501.2450, L100.0100, L500.4050 #### [facility] [address] [place], [address] Platelets (Bld) [#/Vol] 264 10*3/uL Normal 150-450 [facility] Comment on above: Performed By: #### L 503.7505, L504.2610, L501.2450, L100.0100, L500.4050 #### [facility] [address] [place], [address] RBC (Bld) [#/Vol] 4.17 10*6/uL Low 4.2-5.4 [facility] Comment on above: Performed By: #### L 503.7505, L504.2610, L501.2450, L100.0100, L500.4050 #### [facility] [address] [place], [address] RDW SD 45.6 fl High 35.1-43.9 [facility] Comment on above: Performed By: #### L 503.7505, L504.2610, L501.2450, L100.0100, L500.4050 #### [facility] [address] [place], [address] WBC (Bld) [#/Vol] 15.1 10*3/uL High 4.4-11.0 [facility] Comment on above: Performed By: #### L 503.7505, L504.2610, L501.2450, L100.0100, L500.4050 #### [facility] [address] [place], [place], [address] CTA Chest W/WO Contraston CTA Chest W/WO Contrast [facility] Services [address] [place] [address] CTA Chest W/WO Contrast MR#: [id number] Acct: [id number] Name: GREGG ZUNIGA Rep #: [id number] : 2000 F 24 From: Joshua Dawson PCP: Care Physician,No Primary Status: REG ER Study: CTA Chest W/WO Contrast Date of Exam: 06/15/24 Exam# [id number] Ordering Dr: Frankie Mcdaniel DO PROCEDURE: CTA [...] pelvis. Reading Location: [facility] CC: Dr. 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 Supervisor Burling And Joining: Signed Normal [facility] Carbon dioxide, total [Moles /volume] in Central venous bloodOrdered By: Frankie Mcdaniel on 06-15-2024 CO2 [Moles/Vol] 20.9 mmol/L Low 21.0-32.0 [facility] Chloride assayOrdered By: Joseph Mcdaniel on 06-15-2024 Chloride [Moles/Vol] 104 mmol/L 98-108 [facility] Comprehensive Metabolic Prof ilon 06-15-2024 Albumin [Mass/Vol] 3.8 g/dL Normal 3.5-5.0 [facility] Comment on above: Performed By: #### L 503.7505, L504.2610, L501.2450, L100.0100, L500.4050 #### [facility] [address] [place], [address] Albumin/Globulin [Mass ratio] 1.5 {ratio} Normal 0.9-2.4 [facility] Comment on above: Performed By: #### L 503.7505, L504.2610, L501.2450, L100.0100, L500.4050 #### [facility] [address] [place], [address] ALK PHOS 84 U/L Normal 35-104 [facility] Comment on above: Performed By: #### L 503.7505, L504.2610, L501.2450, L100.0100, L500.4050 #### [facility] [address] [place], [address] ALT [Catalytic activity/Vol] 8 U/L Normal <=34 [facility] Comment on above: Performed By: #### L 503.7505, L504.2610, L501.2450, L100.0100, L500.4050 #### [facility] [address] [place], [address] AST [Catalytic activity/Vol] 14 U/L Normal <=31 [facility] Comment on above: Performed By: #### L 503.7505, L504.2610, L501.2450, L100.0100, L500.4050 #### [facility] [address] [place], [address] Bilirubin [Mass/Vol] 0.20 mg/dL Normal 0.00-1.30 [facility] Comment on above: Performed By: #### L 503.7505, L504.2610, L501.2450, L100.0100, L500.4050 #### [facility] [address] [place], [address] BUN/CRE 5.0 RATIO Low 10-20 [facility] Comment on above: Performed By: #### L 503.7505, L504.2610, L501.2450, L100.0100, L500.4050 #### [facility] [address] [place], [address] Calcium [Mass/Vol] 9.0 mg/dL Normal 7.6-11.0 [facility] Comment on above: Performed By: #### L 503.7505, L504.2610, L501.2450, L100.0100, L500.4050 #### [facility] [address] [place], [address] Chloride [Moles/Vol] 104 mmol/L Normal 98-108 [facility] Comment on above: Performed By: #### L 503.7505, L504.2610, L501.2450, L100.0100, L500.4050 #### [facility] [address] [place], [address] CO2 [Moles/Vol] 20.9 mmol/L Low 21.0-32.0 [facility] Comment on above: Performed By: #### L 503.7505, L504.2610, L501.2450, L100.0100, L500.4050 #### [facility] [address] [place], [address] Creatinine [Mass/Vol] 0.88 mg/dL Normal 0.70-1.20 [facility] Comment on above: Performed By: #### L 503.7505, L504.2610, L501.2450, L100.0100, L500.4050 #### [facility] [address] [place], [address] ECRCL 91.07 ml/min Normal 50-250 [facility] Comment on above: Performed By: #### L 503.7505, L504.2610, L501.2450, L100.0100, L500.4050 #### [facility] [address] [place], [address] GAP 12 Normal 5-15 [facility] Comment on above: Performed By: #### L 503.7505, L504.2610, L501.2450, L100.0100, L500.4050 #### [facility] [address] [place], [address] GFR/1.73 sq M.predicted among non-blacks MDRD (S/P/Bld) [Vol rate/Area] 95 mL/min/{1.73_m2} Normal >60 [facility] Comment on above: Result Comment: mL/m in/1.73m2 CKD-EPI Creatinine Equation (2020) Performed By: #### L 503.7505, L504.2610, L501.2450, L100.0100, L500.4050 #### [facility] [address] [place], [address] Globulin (S) [Mass/Vol] 2.6 g/dL Normal 2.2-4.2 [facility] Comment on above: Performed By: #### L 503.7505, L504.2610, L501.2450, L100.0100, L500.4050 #### [facility] [address] [place], [address] Glucose [Mass/Vol] 86 mg/dL Normal 70-99 [facility] Comment on above: Performed By: #### L 503.7505, L504.2610, L501.2450, L100.0100, L500.4050 #### [facility] [address] [place], [address] Potassium [Moles/Vol] 3.2 mmol/L Low 3.3-5.1 [facility] Comment on above: Performed By: #### L 503.7505, L504.2610, L501.2450, L100.0100, L500.4050 #### [facility] [address] [place], [address] Sodium [Moles/Vol] 137 mmol/L Normal 133-145 [facility] Comment on above: Performed By: #### L 503.7505, L504.2610, L501.2450, L100.0100, L500.4050 #### [facility] [address] [place], [address] T PROT 6.4 g/dL Normal 5.9-8.4 [facility] Comment on above: Performed By: #### L 503.7505, L504.2610, L501.2450, L100.0100, L500.4050 #### [facility] [address] [place], [address] Urea nitrogen [Mass/Vol] 4 mg/dL Normal 4-19 [facility] Comment on above: Performed By: #### L 503.7505, L504.2610, L501.2450, L100.0100, L500.4050 #### [facility] [address] [place], [address] Emergency Department Summary on 06-15-2024 Emergency Department Summary [facility] Medical Records Department [address] [place] [address] Emergency Department Summary 06/15/24 MR#: [id number] Acct: [id number] Name: GREGG ZUNIGA Rep #: [id number] : 2000 24 From: Frankie Mcdaniel DO PCP: Care Physician,No Primary Status:DEP CLI Location: [facility] HPI History of Present Illness Chief Complaint: Shortness of Breath Narrative Narrative: Chief complaint and HPI: 24-year-old female who is G1, P0 and 29 weeks [address] with [facility] presents for evaluation of shortness of breath and abdominal cramping. Patient states she received RhoGAM shot on Sunday given that she is O-. She states since then she has had increased shortness of breath and intermittent abdominal/pelvic cramping. She denies any vaginal bleeding or discharge. Shortness of breath is worse with exertion and walking. She states that she attempted to call the [facility] but did not get a return call [...] intact Psych: Cooperative, appropriate mood and affect [facility] Medical History Physical exam, pre-employment [...] Blood Pressur (more content not included)... Normal [facility] Eosinophil percentageOrdered By: Frankie Mcdaniel on 06-15-2024 Eosinophils/100 WBC (Bld) 4.9 % 0-5 [facility] Epithelial cells.squamous LM Ql (Urine sed)Ordered By: Frankie Mcdaniel on 06-15-2024 Epithelial cells.squamous LM.HPF (Urine sed) [#/Area] 0 /[HPF] 5-10 [facility] Erythrocyte distribution wid th (RBC) [Ratio]Ordered By: Frankie Mcdaniel on 06-15-2024 Erythrocyte distribution width (RBC) [Entitic vol] 45.6 fL High 35.1-43.9 [facility] Erythrocyte distribution wid th ratioOrdered By: [place] Violeta on 06-15-2024 Erythrocyte distribution width (RBC) [Ratio] 13.6 % 11.6-14.6 [facility] Erythrocyte distribution wid th standard deviationOrdered By: Frankie Abram Tanner on 06-15-2024 Erythrocyte distribution width (RBC) [Ratio] 45.6 fl High 35.1-43.9 [facility] Estimation of creatinine yaniv aranceOrdered By: Frankie Mcdaniel on 06-15-2024 Estimated Creatinine Clearance Calc 91.07 ml/min 50-250 [facility] GFR/1.73 sq M.predicted robyn g non-blacks MDRD (S/P/Bld) [Vol rate/Area]Ordered By: Frankie Mcdaniel on 06-15-2024 Estimated GFR (MDRD) Non-Af Amer 95 >60 [facility] Comment on above: mL/min/1.73m2 CKD-EP I Creatinine Equation (2020) Glomerular filtration rate ( GFR) estimation/1.73 sq m using serum, plasma, or whole bOrdered By: Frankie Mcdaniel on 06-15-2024 GFR/1.73 sq M.predicted among non-blacks MDRD (S/P/Bld) [Vol rate/Area] 95 mL/min/{1.73_m2} >60 [facility] Comment on above: mL/min/1.73m2 CKD-EP I Creatinine Equation (2020) Glucose Ql (U)Ordered By: Joseph Mcdaniel on 06-15-2024 Urine Glucose (UA) Normal mg/dl Normal [facility] Hematocrit Auto (Bld) [Volum e fraction]Ordered By: Frankie Mcdaniel on 06-15-2024 Hematocrit (Bld) [Volume fraction] 38.5 % 37-47 [facility] Hemoglobin measurementOrdere d By: Frankie AbramFlores on 06-15-2024 Hemoglobin (Bld) [Mass/Vol] 12.9 g/dL 12.0-15.0 [facility] Immature granulocytes/100 WB C Auto (Bld)Ordered By: [facility] on 06-15-2024 Immature granulocytes/100 WBC (Bld) 1.300 % High 0.0-0.9 [facility] Comment on above: IG% - Immature Granu locytes (promyelocytes, myelocytes and metamyelocytes) > 1% indicates that a LEFT SHIFT is Present. Ketones Test strip Ql (U)Ord ered By: Frankie Mcdaniel on 06-15-2024 Ketones Ql (U) Negative Negative [facility] L499.0042on 06-15-2024 Trop T High Sen Normal <=14 [facility] Comment on above: Result Comment: Nestor russell via OM: Ordered Performed By: #### L 503.7505, L504.2610, L501.2450, L100.0100, L500.4050 #### [facility] [address] [place], [address] L501.4021on 06-15-2024 Trop T High Sen < 6 Normal <=14 [facility] Comment on above: Performed By: #### L 503.7505, L504.2610, L501.2450, L100.0100, L500.4050 #### [facility] [address] [place], [address] L503.7505on 06-15-2024 Natriuretic peptide B (Bld) [Mass/Vol] 59 pg/mL Normal <=450 [facility] Comment on above: Result Comment: Hear t Failure Unlikely: < 300 pg/mL Heart Failure Likely < 50 Years: > 450 pg/mL 50-75 Years: > 900 pg/mL >75 Years: > 1800 pg/mL Performed By: #### L 503.7505, L504.2610, L501.2450, L100.0100, L500.4050 #### [facility] [address] [place], [place], [address] LDHon 06-15-2024 LDH 169 U/L Normal 84-246 [facility] Comment on above: Performed By: #### L 503.7505, L504.2610, L501.2450, L100.0100, L500.4050 #### [facility] [address] [place], [place], [address] Laboratory - Chemistry and C hemistry - challengeOrdered By: Frankie Mcdaniel on 06-15-2024 AST [Catalytic activity/Vol] 14 U/L <32 [facility] Lactate dehydrogenase (LDH) measurementOrdered By: Frankiestarla Mcdaniel on 06-15-2024 LDH [Catalytic activity/Vol] 169 U/L 84-246 [facility] Lipaseon 06-15-2024 Lipase [Catalytic activity/Vol] 26 U/L Normal 13-75 [facility] Comment on above: Result Comment: Bacilio casarez note: LIPASE revised reference range effective 22. New Lipase methodology. Expected to produce lower values than the previous assay method. NEW Reference Range: 13 - 75 U/L Performed By: #### L 503.7505, L504.2610, L501.2450, L100.0100, L500.4050 #### [facility] [place], [address] Lipase measurementOrdered By : Frankie Mcdaniel on 06-15-2024 Lipase [Catalytic activity/Vol] 26 U/L 13-75 [facility] Comment on above: Please note:LIPASE r evised reference range effective 22. New Lipase methodology. Expected to produce lower values than the previous assay method. NEW Reference Range: 13 - 75 U/L Lymphocytes Auto (Unsp spec) [#/Vol]Ordered By: Frankie Mcdaniel on 06-15-2024 Lymphocytes (Bld) [#/Vol] 3.28 10*3/uL 0.83-4.51 [facility] Lymphocytes/100 WBC Auto (Un sp spec)Ordered By: Frankie Mcdaniel on 06-15-2024 Lymphocytes/100 WBC (Bld) 21.7 % 19-41 [facility] MCV (mean corpuscular volume ) determinationOrdered By: Frankie Mcdaniel on 06-15-2024 MCV (RBC) [Entitic vol] 92.3 fL 81-99 [facility] Mean corpuscular hemoglobin (MCH) determinationOrdered By: [place] Violeta on 06-15-2024 MCH (RBC) [Entitic mass] 30.9 pg 27.0-32.0 [facility] Mean corpuscular hemoglobin concentration (MCHC) determinationOrdered By: [place] Violeta on 06-15-2024 MCHC (RBC) [Mass/Vol] 33.5 g/dL 32-36 [facility] Mean platelet volume determi nationOrdered By: Frankie Mcdaniel on 06-15-2024 Platelet mean volume (Bld) [Entitic vol] 10.2 fL 6.2-12.0 [facility] Microscopic analysis of urin e for red blood cells (RBC)Ordered By: Frankie Mcdaniel on 06-15-2024 Microscopic analysis of urine for red blood cells (RBC) 0 SEEN /hpf 0-5 [facility] Urine RBC 0 SEEN /hpf 0-5 [facility] Monocyte percentageOrdered B y: Frankie Mcdaniel on 06-15-2024 Monocytes/100 WBC (Bld) 6.4 % 0-10 [facility] Mucus LM Ql (Urine sed)Order ed By: Frankie Mcdaniel on 06-15-2024 Mucus Ql (Urine sed) 0 SEEN /hpf [facility] Natriuretic peptide.B prohor nathaly N-Terminal [Mass/Vol]Ordered By: Frankie Mcdaniel on 06-15-2024 Natriuretic peptide B (Bld) [Mass/Vol] 59 pg/mL <450 [facility] Comment on above: Heart Failure Unlike ly: < 300 pg/mLHeart Failure Likely< 50 Years: > 450 pg/mL50-75 Years: > 900 pg/mL>75 Years: > 1800 pg/mL Natriuretic peptide.B prohor nathaly N-Terminal [Mass/volume] in Serum or PlasmaOrdered By: Frankie Mcdaniel on 06-15-2024 Natriuretic peptide.B prohormone N-Terminal [Mass/Vol] 59 pg/mL <450 [facility] Comment on above: Heart Failure Unlike ly: < 300 pg/mLHeart Failure Likely< 50 Years: > 450 pg/mL50-75 Years: > 900 pg/mL>75 Years: > 1800 pg/mL Neutrophil percentageOrdered By: Frankie Mcdaniel on 06-15-2024 Neutrophils/100 WBC (Bld) 65.4 % 47-70 [facility] Nitrite Test strip Ql (U)Ord ered By: Frankie Mcdaniel on 06-15-2024 Nitrite Ql (U) Negative Negative [facility] Nucleated red blood cell per centageOrdered By: Frankie Mcdaniel on 06-15-2024 Nucleated RBC/100 WBC (Bld) [Ratio] 0 % 0-5 [facility] Platelet countOrdered By: Joseph Mcdaniel on 06-15-2024 Platelets (Bld) [#/Vol] 264 10*3/uL 150-450 [facility] Potassium (Unsp spec) [Mass/ Vol]Ordered By: Frankie Mcdaniel on 06-15-2024 Potassium [Moles/Vol] 3.2 mmol/L Low 3.3-5.1 [facility] Potassium measurement (mass/ volume)Ordered By: Frankie Mcdaniel on 06-15-2024 Potassium (Unsp spec) [Mass/Vol] 3.2 mmol/L Low 3.3-5.1 [facility] Protein Test strip Ql (U)Ord ered By: Frankie Mcdaniel on 06-15-2024 Protein Ql (U) 15 mg/dl High Negative [facility] RBC Auto (Bld) [#/Vol]Ordere d By: Frankie Mcdaniel on 06-15-2024 RBC (Bld) [#/Vol] 4.17 10*6/uL Low 4.2-5.4 [facility] Serum creatinine measurement (mass/volume)Ordered By: Frankie Mcdaniel on 06-15-2024 Creatinine [Mass/Vol] 0.88 mg/dL 0.70-1.20 [facility] Serum globulin measurementOr dered By: Frankie Mcdaniel on 06-15-2024 Globulin (S) [Mass/Vol] 2.6 g/dL 2.2-4.2 [facility] Serum glucose measurement (m ass/volume)Ordered By: Frankie Mcdaniel on 06-15-2024 Glucose [Mass/Vol] 86 mg/dL 70-99 [facility] Serum or plasma alanine bobo otransferase (ALT) measurementOrdered By: Frankie Mcdaniel on 06-15-2024 ALT [Catalytic activity/Vol] 8 U/L <35 [facility] Serum or plasma albumin noa urement (mass/volume)Ordered By: Frankie Tanner on 06-15-2024 Albumin [Mass/Vol] 3.8 g/dL 3.5-5.0 [facility] Serum or plasma albumin/glob ulin mass ratioOrdered By: Frankie Mcdaniel on 06-15-2024 Albumin/Globulin [Mass ratio] 1.5 {ratio} 0.9-2.4 [facility] Serum or plasma alkaline nancy sphatase measurementOrdered By: Frankie Mcdaniel on 06-15-2024 ALP [Catalytic activity/Vol] 84 U/L 35-104 [facility] Serum or plasma calcium noa urement (mass/volume)Ordered By: Frankie Tanner on 06-15-2024 Calcium [Mass/Vol] 9.0 mg/dL 7.6-11.0 [facility] Serum or plasma urea nitroge n measurement (mass/volume)Ordered By: Frankie Mcdaniel on 06-15-2024 Urea nitrogen [Mass/Vol] 4 mg/dL 4-19 [facility] Sodium levelOrdered By: Jeff Mcdaniel on 06-15-2024 Sodium [Moles/Vol] 137 mmol/L 133-145 [facility] Squamous epithelial cells de tection in urine sediment by light microscopyOrdered By: Frankie Mcdaniel on 06-15-2024 Epithelial cells.squamous LM Ql (Urine sed) 0-5 SEEN /hpf 5-10 [facility] Total proteinOrdered By: Jc Mcdaniel on 06-15-2024 Protein [Mass/Vol] 6.4 g/dL 5.9-8.4 [facility] Troponin T.cardiac High sens itivity method [Mass/Vol]Ordered By: Frankie Tanner on 06-15-2024 Troponin T High Sensitivity < 6 ng/L <14 [facility] Troponin T.cardiac [Mass/vol ume] in Serum or Plasma by High sensitivity methodOrdered By: Frankie Mcdaniel on 06-15-2024 Troponin T.cardiac High sensitivity method [Mass/Vol] < 6 ng/L <14 [facility] Urinalysis, Completeon 06-15 EPI,SQUAMOUS 0-5 SEEN Normal 5-10 [facility] Comment on above: Order Comment: CLEAN CATCH Performed By: #### L 400.0001 #### [facility] [address] [place], [place], [id number] BACTERIA 0 SEEN Normal None Seen [facility] Comment on above: Order Comment: CLEAN CATCH Performed By: #### L 400.0001 #### [facility] [address] [place] [place], [address] Mucus Ql (Urine sed) 0 SEEN Normal [facility] Comment on above: Order Comment: CLEAN CATCH Performed By: #### L 400.0001 #### [facility] [address] [place], [address] RBC 0 SEEN Normal 0-5 [facility] Comment on above: Order Comment: CLEAN CATCH Performed By: #### L 400.0001 #### [facility] [address] [place], [address] WBC 0 SEEN Normal 0-5 [facility] Comment on above: Order Comment: CLEAN CATCH Performed By: #### L 400.0001 #### [facility] [address] [place], [place], [id number] Urine blood detectionOrdered By: Frankie Mcdaniel on 06-15-2024 Urine Occult Blood Negative Negative [facility] Urine clarityOrdered By: Jc Mcdaniel on 06-15-2024 Clarity (U) Sl. Cloudy Clear [facility] Urine color determinationOrd ered By: Frankie Mcdaniel on 06-15-2024 Color (U) Yellow Yellow [facility] Urine glucose detectionOrder ed By: Frankie Mcdaniel on 06-15-2024 Glucose Ql (U) Normal mg/dl Normal [facility] Urine leukocyte esterase det ection by dipstickOrdered By: Frankie Mcdaniel on 06-15-2024 Leukocyte esterase Test strip Ql (U) Negative Negative [facility] Urine pHOrdered By: Frankie Darnell on 06-15-2024 pH (U) 7.0 [pH] 5.0 - 8.0 [facility] Urine sediment bacteria coun t by microscopy (number/high power field)Ordered By: Frankie Mcdaniel on 06-15-2024 Bacteria LM.HPF (Urine sed) [#/Area] 0 /[HPF] None Seen [facility] Urine specific gravity measu rementOrdered By: Frankie Mcdaniel on 06-15-2024 Specific gravity (U) [Rel density] 1.005 1.002-1.030 [facility] Urine urobilinogen measureme ntOrdered By: Frankie Mcdaniel on 06-15-2024 Urobilinogen Ql (U) Normal mg/dl Normal [facility] Urobilinogen Ql (U)Ordered B y: Frankie Mcdaniel on 06-15-2024 Urine Urobilinogen Normal mg/dl Normal [facility] White blood cell (WBC) count Ordered By: Frankie Mcdaniel on 06-15-2024 WBC (Bld) [#/Vol] 15.1 10*3/uL High 4.4-11.0 [facility] White blood cell countOrdere d By: Frankie Mcdaniel on 06-15-2024 Urine WBC 0 SEEN /hpf 0-5 [facility] White blood cell count 0 SEEN /hpf 0-5 [facility] CBC W Auto Differential pane l (Bld)on 06-13-2024 Basophils (Bld) [#/Vol] 0.04 10*3/uL Normal <0.11 [facility] Comment on above: Order Comment: Speci men Type: BLOOD SPECIMEN Ordering Facility: [facility] Address: [address] [place] [address] Performed By: #### 5 7021-8 #### [facility] CLIA [id number] [address] [place] [address] [place] Basophils/100 WBC (Bld) 0.3 % Normal C [facility] Comment on above: Order Comment: Speci men Type: BLOOD SPECIMEN Ordering Facility: [facility] Address: [address] [place] [address] Performed By: #### 5 7021-8 #### [facility] CLIA [id number] [address] [place] [address] [place] Differential cell count method Nom (Bld) Auto [facility] Comment on above: Order Comment: Speci men Type: BLOOD SPECIMEN Ordering Facility: [facility] Address: [address] [place] [address] Performed By: #### 5 7021-8 #### [facility] CLIA [id number] [address] [place] [address] [place] Eosinophils (Bld) [#/Vol] 0.47 10*3/uL High <0.46 [facility] Comment on above: Order Comment: Speci men Type: BLOOD SPECIMEN Ordering Facility: [facility] Address: [address] [place] [address] Performed By: #### 5 7021-8 #### [facility] CLIA [id number] [address] [place] [address] [place] Eosinophils/100 WBC (Bld) 3.5 % [facility] Comment on above: Order Comment: Speci men Type: BLOOD SPECIMEN Ordering Facility: [facility] Address: [address] [place] [address] Performed By: #### 5 7021-8 #### [facility] CLIA [id number] [address] [place] [address] [place] Erythrocyte distribution width (RBC) [Ratio] 13.7 % Normal 11.5-15.0 [facility] Comment on above: Order Comment: Speci men Type: BLOOD SPECIMEN Ordering Facility: [facility] Address: [address] [place] [address] Performed By: #### 5 7021-8 #### [facility] CLIA [id number] [address] [place] [address] [place] Hematocrit (Bld) [Volume fraction] 37.4 % Normal 36.0-46.0 [facility] Comment on above: Order Comment: Speci men Type: BLOOD SPECIMEN Ordering Facility: [facility] Address: [address] [place] [address] Performed By: #### 5 7021-8 #### [facility] CLIA [id number] [address] [place] [address] [place] Hemoglobin (Bld) [Mass/Vol] 13.1 g/dL Normal 11.5-15.5 [facility] Comment on above: Order Comment: Speci men Type: BLOOD SPECIMEN Ordering Facility: [facility] Address: [address] [place] [address] Performed By: #### 5 7021-8 #### [facility] CLIA [id number] [address] [place] [address] [place] Immature granulocytes (Bld) [#/Vol] 0.35 10*3/uL High <0.10 [facility] Comment on above: Order Comment: Speci men Type: BLOOD SPECIMEN Ordering Facility: [facility] Address: [address] [place] [address] Performed By: #### 5 7021-8 #### [facility] CLIA [id number] [address] [place] [address] [place] Immature granulocytes/100 WBC (Bld) 2.6 % [facility] Comment on above: Order Comment: Speci men Type: BLOOD SPECIMEN Ordering Facility: [facility] Address: [address] [place] [address] Performed By: #### 5 7021-8 #### [facility] CLIA [id number] [address] [place] [address] [place] Lymphocytes (Bld) [#/Vol] 2.24 10*3/uL Normal 1.00-4.00 [facility] Comment on above: Order Comment: Speci men Type: BLOOD SPECIMEN Ordering Facility: [facility] Address: [address] [place] [address] Performed By: #### 5 7021-8 #### [facility] CLIA [id number] [address] [place] [address] [place] Lymphocytes/100 WBC (Bld) 16.7 % [facility] Comment on above: Order Comment: Speci men Type: BLOOD SPECIMEN Ordering Facility: [facility] Address: [address] [place] [address] Performed By: #### 5 7021-8 #### [facility] CLIA [id number] [address] [place] [address] [place] MCH (RBC) [Entitic mass] 31.6 pg Normal 26.0-34.0 [facility] Comment on above: Order Comment: Speci men Type: BLOOD SPECIMEN Ordering Facility: [facility] Address: [address] [place] [address] Performed By: #### 5 7021-8 #### [id number] [address] [place] [address] [place] MCHC (RBC) [Mass/Vol] 35.0 g/dL Normal 30.5-36.0 [facility] Comment on above: Order Comment: Speci men Type: BLOOD SPECIMEN Ordering Facility: [facility] Address: [address] [place] [address] Performed By: #### 5 7021-8 #### [facility] [id number] [address] [place] [address] [place] MCV (RBC) [Entitic vol] 90.1 fL Normal 80.0-100.0 C [facility] Comment on above: Order Comment: Speci men Type: BLOOD SPECIMEN Ordering Facility: [facility] Address: [address] [place], [place] [address] Performed By: #### 5 7021-8 #### [id number] [address] [place] [address] [place] Monocytes (Bld) [#/Vol] 0.90 10*3/uL High <0.87 [facility] Comment on above: Order Comment: Speci men Type: BLOOD SPECIMEN Ordering Facility: [facility] Address: [address] [place] [address] Performed By: #### 5 7021-8 #### [facility] CLIA [id number] [address] [place] [address] [place] Monocytes/100 WBC (Bld) 6.7 % Normal C [facility] Comment on above: Order Comment: Speci men Type: BLOOD SPECIMEN Ordering Facility: [facility] Address: [address] [place] [address] Performed By: #### 5 7021-8 #### [facility] CLIA [id number] [address] [place] [address] [place] Neutrophils (Bld) [#/Vol] 9.38 10*3/uL High 1.45-7.50 [facility] Comment on above: Order Comment: Speci men Type: BLOOD SPECIMEN Ordering Facility: [facility] Address: [address] [place] [address] Performed By: #### 5 7021-8 #### [facility] CLIA [id number] [address] [place] [address] [place] Neutrophils/100 WBC (Bld) 70.2 % [facility] Comment on above: Order Comment: Speci men Type: BLOOD SPECIMEN Ordering Facility: [facility] Address: [address] [place] [address] Performed By: #### 5 7021-8 #### [facility] CLIA [id number] [address] [place] [address] [place] Nucleated RBC (Bld) [#/Vol] 10*3/uL Normal <0.01 [facility] Comment on above: Order Comment: Speci men Type: BLOOD SPECIMEN Ordering Facility: [facility] Address: [address] [place] [address] Performed By: #### 5 7021-8 #### [facility] CLIA [id number] [address] [place] [address] [place] Nucleated RBC/100 WBC (Bld) [Ratio] 0.0 /100 WBC [facility] Comment on above: Order Comment: Speci men Type: BLOOD SPECIMEN Ordering Facility: [facility] Address: [address] [place] [address] Performed By: #### 5 7021-8 #### [facility] CLIA [id number] [address] [place] [address] [place] Platelet mean volume (Bld) [Entitic vol] 9.6 fL Normal 9.0-12.7 [facility] Comment on above: Order Comment: Speci men Type: BLOOD SPECIMEN Ordering Facility: [facility] Address: [address] [place] [address] Performed By: #### 5 7021-8 #### [facility] CLIA [id number] [address] [place] [address] [place] Platelets (Bld) [#/Vol] 241 10*3/uL Normal 150-400 [facility] Comment on above: Order Comment: Speci men Type: BLOOD SPECIMEN Ordering Facility: [facility] Address: [address] [place] [address] Performed By: #### 5 7021-8 #### [facility] CLIA [id number] [address] [place] [address] [place] RBC (Bld) [#/Vol] 4.15 10*6/uL Normal 3.90-5.20 [facility] Comment on above: Order Comment: Speci men Type: BLOOD SPECIMEN Ordering Facility: [facility] Address: [address] [place] [address] Performed By: #### 5 7021-8 #### [facility] CLIA [id number] [address] [place] [address] [place] WBC (Bld) [#/Vol] 13.38 10*3/uL High 3.70-11.00 [facility] Comment on above: Order Comment: Speci jhonny Type: BLOOD SPECIMEN Ordering Facility: [facility] Address: [address] [place] [address] Performed By: #### 5 7021-8 #### [facility] CLIA [id number] [address] [place] [address] [place] GESTATIONAL GLUCOSE SCREEN, 1-HOUR, 50 GRAM, NON-FASTINGon 06-13-2024 Glucose [Mass/Vol] 102 mg/dL Normal 74-134 [facility] Comment on above: Order Comment: Hilda barry Type: BLOOD SPECIMEN Ordering Facility: [facility] Address: [address] [place] [address] Result Comment: [facility] Congress of Obstetricians and Gynecologists (Snyder/Coustan) guidelines state a gestational diabetes mellitus positive screen is made, in women not previously diagnosed with overt diabetes, when the 1 hr plasma glucose level is equal to or above 140 mg/dL. [facility] recommends a 135 mg/dL cutoff. Performed By: #### 5 195-3, 71337-6, 27711-9 #### [facility] CLIA [id number] [address] [place], [place] [address] [place] [address] [place] Reagin and Treponema pallidu m IgG and IgM [Interp]on 06-13-2024 T. pallidum IgG+IgM IA Ql (S) Non-Reactive Normal Non[facility] Comment on above: Order Comment: Hilda barry Type: BLOOD SPECIMENOrdering Facility: [facility] Address: [address] [place] [address] Performed By: #### 7 3752-8 ####[facility] [id number] [facility] [place] [address] [place] Reagin+T pallidum IgG+IgM Se rPl-Impon 06-13-2024 Reagin and Treponema pallidum IgG and IgM [Interp] Cannot exclude recent Treponemal infection if specimen collected within 7-10 days after appearance of suspect lesions or 2-3 weeks after an exposure. Clinical correlation is required. [facility] Comment on above: Order Comment: Speci men Type: BLOOD SPECIMENOrdering Facility: [facility] Address: [address] [place] [address] Performed By: #### 7 3752-8 ####[facility] [id number] [place] [address] [place] TYPE + SCREEN PRENATALon ABO O [facility] Comment on above: Order Comment: Speci men Type: BLOOD SPECIMEN Ordering Facility: [facility] Address: [address] [place] [address] Performed By: #### 5 195-3, 91516-9, 09255-4 #### [facility] CLIA [id number] [address] [place] [address] [place] Rh Nom (Bld) Negative [facility] Comment on above: Order Comment: Speci men Type: BLOOD SPECIMEN Ordering Facility: [facility] Address: [address] [place] [address] Performed By: #### 5 195-3, 95418-0, 53251-5 #### [facility] CLIA [id number] [address] [place] [address] [place] TYPE AND SCREEN EXPIRATION 06/16/2024 23:59 [facility] Comment on above: Order Comment: Speci men Type: BLOOD SPECIMEN Ordering Facility: [facility] Address: [address] [place] [address] Performed By: #### 5 195-3, 91055-3, 63086-7 #### [facility] CLIA [id number] [address] [place] [address] [place] CNPNon 06-10-2024 CNPN Telephone (4CQ) KENIAGREGG ([id number]) 4 F Date Time Provider Department 06/10/24 [...] 1 capsule by mouth once daily. - [id number] acid ( 19) 29 mg iron- 1 [...] Encounter Status:Closed by KATIE YUSUF on 06/10/24 [facility] Telephone (OBGYWM) GREGG ZUNIGA ([id number]) 4 F Date Time Provider Department 06/10/24 AMINAH ESCOBAR OBGYWM During your visit today, we recorded [...] Signed Left message for patient to check Impulsiv message or call office. Katie Yusuf RN Allergies As of Date: 06/10/2024 Noted Allergy Reaction ADHESIVE 10/23/2023 4 - Hives LACTOSE 10/23/2023 8 - GI Upset Date Reviewed: 06/04/2024 Reviewed by: Manas Vogel MA - Fully Assessed Reason for Visit: OB back pain [Other] Prescriptions as of 06/10/2024 - omeprazole (PRILOSEC) 10 mg capsule Take 1 capsule by mouth once daily. - [id number]-qlbqh acid ( 19) 29 mg iron- 1 [...] Encounter Status:Closed by GEORGIA WREN on 06/10/24 [facility] Sheila 2024 CNPN Telephone (OBGYWM) GREGG ZUNIGA ([id number]) 4 F Date Time Provider Department 04/24/24 YOBANY ROMERO OBGYWChris During your visit today, we recorded the following information about you: Katie Yusuf RN 2024 11:49 AM Signed 21w6d Patient's mother calling for her. She has GI virus with vomiting and diarrhea for over 24 hours. Mother talked to provider conductor sleeping car early this morning and gave 2 imodium [...] Status:Closed by KATIE YUSUF on 04/24/24 [facility] Examination level ultrasound on 04-14-2024 Indication [...] Method Transabdominal ultrasound examination. View: Adequate visualization Fitzgerald . Number of fetuses: 1 Dating LMP [...] 13 oz EFW by: [employer]lock (HC-AC-FL) Extended Cnc Service Engineer 6.6 mm CM 3.3 mm 5% Nicolaides [...] normal LVOT view: normal 3-vessel view: normal 4-fasqfa-nreoyto view: normal Heart / Thorax Situs: situs [...] Read By: Marlene Prakash M.D. MATERNAL MEDICINE [facility] Study observation (narrative) Adriana irby [facility] CNCOon 03-31-2024 CNCO Letter Text [facility] CNOVon 03-28-2024 CNOV Office Visit (CARDMN) GREGG ZUNIGA ([id number]) 4 F Date Time Provider Department 03/28/24 9:15 AM JAY BYRD CARDROBBIN During your visit today, we recorded the following information about you: Pulse Blood pressure Weight Height 79/minute 114/71 60.3 kg 1.562 m Jay Byrd MD 03/28/2024 10:26 AM Signed [facility] Castell[facility] Department of Cardiovascular Medicine SECTION OF CARDIAC PACING and ELECTROPHYSIOLOGY OUTPATIENT VISIT DATE March 28, 2024 OUTPATIENT VISIT TYPE ESTABLISHED PRIMARY CARE PHYSICIAN: Kayleen Mckay MD [address] [place] [address] CHIEF COMPLAINT: Follow-up for tachycardia and syncope [...] in office 12/24/2023. She was given a [employer] monitor and mailed it back but monitor was never received by [employer] (confirmed with company). Echo 12/24/2023 showed EF=63% [...] visit a (more content not included)... [facility] ECG COMPLETEon 03-28-2024 ECG COMPLETE Ventricular Rate : 72 BPM Atrial Rate : 72 BPM P-R Interval : 130 ms QRS Duration : 84 ms Q-T Interval : 368 ms QTC Calculation(Bazett) : 402 ms Calculated P [place] : 21 degrees Calculated R [place] : 64 degrees Calculated T [place] : 48 degrees NORMAL SINUS RHYTHM NORMAL ECG Confirmed by ALISTAIR MARTINEZ MD ([id number]) on 04/15/2024 9:35:54 AM NAME : GREGG ZUNIGA PID : [id number] : 2000 Gender : Female Race : ORD : [id number] Procedure Date : Mar 28 2024 08:33:06 Edit Date : Apr 15 2024 09:35:55 Diagnosis: NORMAL SINUS RHYTHM NORMAL ECG Confirmed by ALISTAIR MARTINEZ MD ([id number]) on 04/15/2024 9:35:54 AM Test Reason : Location : [facility] : [facility] Overread By : ALISTAIR MARTINEZ MD Edited By : ALISTAIR MARTINEZ MD Referred By : JAY BYRD Acquired by : MEGAN [facility] 12 Lead EKGon 03-24-2024 12 Lead EKG [facility] [address] [place] [address] 12 Lead EKG 03/24/24 1830 MR#: [id number] Acct: [id number] Name: GREGG ZUNIGA Rep #: [id number] : 2000 23 From: Cailin Joy MD [...] ECG Confirmed by MARKO SANTIAGO, JOSE M ([id number]), editor greeting card AGUSTIN MCCLURE ([id number]) on 03/31/2024 2:24:00 PM Referred By: Confirmed By: JOSE M JOY MD 03/31/24 1424 Date Cailin Joy MD CC: Dr. Len Haile, DO; No Primary Care Physician Signed Normal [facility] Absolute lymphocyte countOrd ered By: Len Haile on 03-24-2024 Lymphocytes Auto (Unsp spec) [#/Vol] 2.49 10*3/uL 0.83-4.51 [facility] Absolute neutrophil countOrd ered By: Len Haile on 03-24-2024 Neutrophils (Bld) [#/Vol] 11.5 10*3/uL High 2.0-7.7 [facility] Albumin to globulin ratioOrd ered By: Len Haile on 03-24-2024 Albumin/Globulin [Mass ratio] 1.0 {ratio} 0.9-2.4 [facility] Automated lymphocyte count a s percentage of total leukocytesOrdered By: Len Haile on 03-24-2024 Lymphocytes/100 WBC Auto (Unsp spec) 16.4 % Low 19-41 [facility] Basophil percentageOrdered B y: Len Haile on 03-24-2024 Basophils/100 WBC (Bld) 0.2 % 0-1 [facility] Bilirubin, totalOrdered By: Len Haile on 03-24-2024 Bilirubin [Mass/Vol] 0.40 mg/dL 0.20-1.00 [facility] Comment on above: For patients on eltr ombopag therapy, use of Dimension [place] TBIL is not recommended. Blood urea nitrogen (BUN)/cr eatinine ratioOrdered By: Len Haile on 03-24-2024 Urea nitrogen/Creatinine [Mass ratio] 7.2 mg/mg Low 10-20 [facility] CBC W/Diff, Automatedon 03-06 Absolute Lymph 2.49 X10 3/uL Normal 0.83-4.51 [facility] Comment on above: Performed By: #### L 501.2450, L100.0100, L500.4050 #### [facility] [place], [address] Absolute Neut 11.5 X10 3/uL High 2.0-7.7 [facility] Comment on above: Performed By: #### L 501.2450, L100.0100, L500.4050 #### [facility] [address] [place], [address] Basophils/100 WBC (Bld) 0.2 % Normal 0-1 [facility] Comment on above: Performed By: #### L 501.2450, L100.0100, L500.4050 #### [facility] [address] [place], [address] Eosinophils/100 WBC (Bld) 2.6 % Normal 0-5 [facility] Comment on above: Performed By: #### L 501.2450, L100.0100, L500.4050 #### [facility] [address] [place], [address] Erythrocyte distribution width (RBC) [Ratio] 13.3 % Normal 11.6-14.6 [facility] Comment on above: Performed By: #### L 501.2450, L100.0100, L500.4050 #### [facility] [address] [place], [address] Hematocrit (Bld) [Volume fraction] 39.2 % Normal 37-47 [facility] Comment on above: Performed By: #### L 501.2450, L100.0100, L500.4050 #### [facility] [address] [place], [address] Hemoglobin (Bld) [Mass/Vol] 13.5 g/dL Normal 12.0-15.0 [facility] Comment on above: Performed By: #### L 501.2450, L100.0100, L500.4050 #### [facility] [address] [place], [address] IG% 0.300 Normal 0.0-0.9 [facility] Comment on above: Result Comment: IG% - Immature Granulocytes (promyelocytes, myelocytes and metamyelocytes) > 1% indicates that a LEFT SHIFT is Present. Performed By: #### L 501.2450, L100.0100, L500.4050 #### [facility] [address] [place], [address] Lymphocytes/100 WBC (Bld) 16.4 % Low 19-41 [facility] Comment on above: Performed By: #### L 501.2450, L100.0100, L500.4050 #### [facility] [address] [place], [address] MCH (RBC) [Entitic mass] 29.9 pg Normal 27.0-32.0 [facility] Comment on above: Performed By: #### L 501.2450, L100.0100, L500.4050 #### [facility] [address] [place], [address] MCHC (RBC) [Mass/Vol] 34.4 g/dL Normal 32-36 [facility] Comment on above: Performed By: #### L 501.2450, L100.0100, L500.4050 #### [facility] [address] [place], [address] MCV (RBC) [Entitic vol] 86.9 fL Normal 81-99 [facility] Comment on above: Performed By: #### L 501.2450, L100.0100, L500.4050 #### [facility] [address] [place], [address] Monocytes/100 WBC (Bld) 4.7 % Normal 0-10 [facility] Comment on above: Performed By: #### L 501.2450, L100.0100, L500.4050 #### [facility] [address] [place], [address] Neutrophils/100 WBC (Bld) 75.8 % High 47-70 [facility] Comment on above: Performed By: #### L 501.2450, L100.0100, L500.4050 #### [facility] [address] [place], [address] Nucleated RBC (Bld) [#/Vol] 0 10*3/uL Normal 0-5 [facility] Comment on above: Performed By: #### L 501.2450, L100.0100, L500.4050 #### [facility] [address] [place], [address] Platelet mean volume (Bld) [Entitic vol] 9.5 fL Normal 6.2-12.0 [facility] Comment on above: Performed By: #### L 501.2450, L100.0100, L500.4050 #### [facility] [address] [place], [address] Platelets (Bld) [#/Vol] 309 10*3/uL Normal 150-450 [facility] Comment on above: Performed By: #### L 501.2450, L100.0100, L500.4050 #### [facility] [address] [place], [address] RBC (Bld) [#/Vol] 4.51 10*6/uL Normal 4.2-5.4 [facility] Comment on above: Performed By: #### L 501.2450, L100.0100, L500.4050 #### [facility] [address] [place], [address] RDW SD 42.0 fl Normal 35.1-43.9 [facility] Comment on above: Performed By: #### L 501.2450, L100.0100, L500.4050 #### [facility] [address] [place], [address] WBC (Bld) [#/Vol] 15.2 10*3/uL High 4.4-11.0 [facility] Comment on above: Performed By: #### L 501.2450, L100.0100, L500.4050 #### [facility] [address] [place], [address] Carbon dioxide measurementOr dered By: Len Haile on 03-24-2024 CO2 [Moles/Vol] 22.0 mmol/L 21.0-32.0 [facility] Chloride measurementOrdered By: Len Haile on 03-24-2024 Chloride [Moles/Vol] 109 mmol/L High 98-107 [facility] Comprehensive Metabolic Prof ilon 03-24-2024 Albumin [Mass/Vol] 3.4 g/dL Normal 3.2-5.0 [facility] Comment on above: Performed By: #### L 501.2450, L100.0100, L500.4050 #### [facility] [address] [place], [address] Albumin/Globulin [Mass ratio] 1.0 {ratio} Normal 0.9-2.4 [facility] Comment on above: Performed By: #### L 501.2450, L100.0100, L500.4050 #### [facility] [address] [place], [address] ALK P 59 U/L Normal 45-117 [facility] Comment on above: Performed By: #### L 501.2450, L100.0100, L500.4050 #### [facility] [address] [place], [address] ALT [Catalytic activity/Vol] 21 U/L Normal 13-56 [facility] Comment on above: Performed By: #### L 501.2450, L100.0100, L500.4050 #### [facility] [address] [place], [address] AST [Catalytic activity/Vol] 14 U/L Low 15-37 [facility] Comment on above: Performed By: #### L 501.2450, L100.0100, L500.4050 #### [facility] [address] [place], [address] Bilirubin [Mass/Vol] 0.40 mg/dL Normal 0.20-1.00 [facility] Comment on above: Result Comment: For patients on eltrombopag therapy, use of Dimension [place] TBIL is not recommended. Performed By: #### L 501.2450, L100.0100, L500.4050 #### [facility] [address] [place], [address] BUN/CRE 7.2 RATIO Low 10-20 [facility] Comment on above: Performed By: #### L 501.2450, L100.0100, L500.4050 #### [facility] [address] [place], [address] CA,Total 9.2 mg/dL Normal 8.5-10.1 [facility] Comment on above: Performed By: #### L 501.2450, L100.0100, L500.4050 #### [facility] [address] [place], [address] Chloride [Moles/Vol] 109 mmol/L High 98-107 [facility] Comment on above: Performed By: #### L 501.2450, L100.0100, L500.4050 #### [facility] [address] [place], [address] CO2 [Moles/Vol] 22.0 mmol/L Normal 21.0-32.0 [facility] Comment on above: Performed By: #### L 501.2450, L100.0100, L500.4050 #### [facility] [address] [place], [address] Creatinine [Mass/Vol] 0.55 mg/dL Normal 0.55-1.02 [facility] Comment on above: Result Comment: The validity of the calculated GFR GFRAA in patients over 70 years has not been determined. Clinical correlation is essential. Performed By: #### L 501.2450, L100.0100, L500.4050 #### [facility] [address] [place], [address] ECRCL 136.75 ml/min Normal [facility] Comment on above: Performed By: #### L 501.2450, L100.0100, L500.4050 #### [facility] [address] [place], [address] EST GFR - AA 177 mL/min Normal >60 [facility] Comment on above: Result Comment: Afri can Ethiopian GFR Calc Performed By: #### L 501.2450, L100.0100, L500.4050 #### [facility] [address] [place], [address] GAP 8 Normal 5-15 [facility] Comment on above: Performed By: #### L 501.2450, L100.0100, L500.4050 #### [facility] [address] [place], [address] GFR/1.73 sq M.predicted among non-blacks MDRD (S/P/Bld) [Vol rate/Area] 146 mL/min/{1.73_m2} Normal >60 [facility] Comment on above: Result Comment: Non- GFR Calc Performed By: #### L 501.2450, L100.0100, L500.4050 #### [facility] [address] [place], [address] Globulin (S) [Mass/Vol] 3.4 g/dL Normal 2.2-4.2 [facility] Comment on above: Performed By: #### L 501.2450, L100.0100, L500.4050 #### [facility] [address] [place], [address] Glucose [Mass/Vol] 98 mg/dL Normal 74-106 [facility] Comment on above: Performed By: #### L 501.2450, L100.0100, L500.4050 #### [facility] [address] [place], [address] Potassium [Moles/Vol] 3.2 mmol/L Low 3.5-5.1 [facility] Comment on above: Performed By: #### L 501.2450, L100.0100, L500.4050 #### [facility] [address] [place], [address] Sodium [Moles/Vol] 139 mmol/L Normal 136-145 [facility] Comment on above: Performed By: #### L 501.2450, L100.0100, L500.4050 #### [facility] [address] [place], [address] T PROT 6.8 g/dL Normal 6.4-8.2 [facility] Comment on above: Performed By: #### L 501.2450, L100.0100, L500.4050 #### [facility] [address] [place], [address] Urea nitrogen [Mass/Vol] 4 mg/dL Low 7-18 [facility] Comment on above: Performed By: #### L 501.2450, L100.0100, L500.4050 #### [facility] [address] [place], [address] Emergency Department Summary on 03-24-2024 Emergency Department Summary [facility] Medical Records Department [address] [place] [address] Emergency Department Summary 03/24/24 MR#: [id number] Acct: [id number] Name: GREGG ZUNIGA Rep #: [id number] : 2000 23 From: Len Haile DO PCP: Care Physician,No Primary Status:REG ER Location: ED HPI History of Present Illness Chief Complaint: Nausea/Vomiting/Diar nereida [facility] Medical History Physical exam, pre-employment [...] 98 99 Oxygen Delivery Method Room Air MDM MDM MDM Narrative Medical decision making narrative: HISTORY OF [...] History obtained from others: none Consults: none [facility] Narrative: Patient was initially tachycardic [...] IV fluids (more content not included)... Normal [facility] Eosinophil percentageOrdered By: Len Haile on 03-24-2024 Eosinophils/100 WBC (Bld) 2.6 % 0-5 [facility] Erythrocyte distribution wid th (RBC) [Ratio]Ordered By: Len Haile on 03-24-2024 Erythrocyte distribution width (RBC) [Entitic vol] 42.0 fL 35.1-43.9 [facility] Erythrocyte distribution wid th ratioOrdered By: Len Haile on 03-24-2024 Erythrocyte distribution width (RBC) [Ratio] 13.3 % 11.6-14.6 [facility] Erythrocyte distribution wid th standard deviationOrdered By: Len Haile on 03-24-2024 Erythrocyte distribution width (RBC) [Ratio] 42.0 fl 35.1-43.9 [facility] Estimated glomerular filtrat ion rate (GFR) AmericanOrdered By: Len Haile on 03-24-2024 Estimated GFR (MDRD) Amer 177 mL/min >60 [facility] Comment on above: GFR Calc Estimation of creatinine yaniv aranceOrdered By: Len Haile on 03-24-2024 Estimated Creatinine Clearance Calc 136.75 ml/min [facility] Glomerular filtration rate ( GFR) estimationOrdered By: Len Haile on 03-24-2024 Estimated GFR (MDRD) Non-Af Amer 146 mL/min >60 [facility] Comment on above: Non- GFR Calc GFR/1.73 sq M.predicted among non-blacks MDRD (S/P/Bld) [Vol rate/Area] 146 mL/min/{1.73_m2} >60 [facility] Comment on above: Non- GFR Calc Glucose measurementOrdered B y: Len Haile on 03-24-2024 Glucose [Mass/Vol] 98 mg/dL 74-106 [facility] Hematocrit Auto (Bld) [Volum e fraction]Ordered By: Len Haile on 03-24-2024 Hematocrit (Bld) [Volume fraction] 39.2 % 37-47 [facility] Hemoglobin measurementOrdere d By: Len Haile on 03-24-2024 Hemoglobin (Bld) [Mass/Vol] 13.5 g/dL 12.0-15.0 [facility] Immature granulocytes/100 WB C Auto (Bld)Ordered By: Len Haile on 03-24-2024 Immature granulocytes/100 WBC (Bld) 0.300 % 0.0-0.9 [facility] Comment on above: IG% - Immature Granu locytes (promyelocytes, myelocytes and metamyelocytes) > 1% indicates that a LEFT SHIFT is Present. Laboratory - Chemistry and C hemistry - challengeOrdered By: Len Haile on 03-24-2024 AST [Catalytic activity/Vol] 14 U/L Low 15-37 [facility] Lipaseon 03-24-2024 Lipase [Catalytic activity/Vol] 19 U/L Normal 13-75 [facility] Comment on above: Result Comment: Plea se note: LIPASE revised reference range effective 22. New Lipase methodology. Expected to produce lower values than the previous assay method. NEW Reference Range: 13 - 75 U/L Performed By: #### L 503.7505, L504.2610, L501.2450, L100.0100, L500.4050 #### [facility] [place], [address] Lipase measurementOrdered By : Len Haile on 03-24-2024 Lipase [Catalytic activity/Vol] 19 U/L 13-75 [facility] Comment on above: Please note:LIPASE r evised reference range effective 22. New Lipase methodology. Expected to produce lower values than the previous assay method. NEW Reference Range: 13 - 75 U/L Lymphocytes Auto (Unsp spec) [#/Vol]Ordered By: Len Haile on 03-24-2024 Lymphocytes (Bld) [#/Vol] 2.49 10*3/uL 0.83-4.51 [facility] Lymphocytes/100 WBC Auto (Un sp spec)Ordered By: Len Haile on 03-24-2024 Lymphocytes/100 WBC (Bld) 16.4 % Low 19-41 [facility] MCV (mean corpuscular volume ) determinationOrdered By: Len Haile on 03-24-2024 MCV (RBC) [Entitic vol] 86.9 fL 81-99 [facility] Mean corpuscular hemoglobin (MCH) determinationOrdered By: Len Haile on 03-24-2024 MCH (RBC) [Entitic mass] 29.9 pg 27.0-32.0 [facility] Mean corpuscular hemoglobin concentration (MCHC) determinationOrdered By: Len Haile on 03-24-2024 MCHC (RBC) [Mass/Vol] 34.4 g/dL 32-36 [facility] Mean platelet volume determi nationOrdered By: Len Haile on 03-24-2024 Platelet mean volume (Bld) [Entitic vol] 9.5 fL 6.2-12.0 [facility] Monocyte percentageOrdered B y: Len Haile on 03-24-2024 Monocytes/100 WBC (Bld) 4.7 % 0-10 [facility] Neutrophil percentageOrdered By: Len Haile on 03-24-2024 Neutrophils/100 WBC (Bld) 75.8 % High 47-70 [facility] Nucleated red blood cell per centageOrdered By: Len Haile on 03-24-2024 Nucleated RBC/100 WBC (Bld) [Ratio] 0 % 0-5 [facility] Platelet countOrdered By: Paul Haile on 03-24-2024 Platelets (Bld) [#/Vol] 309 10*3/uL 150-450 [facility] Potassium measurementOrdered By: Len Haile on 03-24-2024 Potassium [Moles/Vol] 3.2 mmol/L Low 3.5-5.1 [facility] RBC Auto (Bld) [#/Vol]Ordere d By: Len Haile on 03-24-2024 RBC (Bld) [#/Vol] 4.51 10*6/uL 4.2-5.4 [facility] Serum anion gap measurementO rdered By: Len Haile on 03-24-2024 Anion gap [Moles/Vol] 8 mmol/L 5-15 [facility] Serum globulin measurementOr dered By: Len Haile on 03-24-2024 Globulin (S) [Mass/Vol] 3.4 g/dL 2.2-4.2 [facility] Serum or plasma alanine bobo otransferase (ALT) measurementOrdered By: Len Haile on 03-24-2024 ALT [Catalytic activity/Vol] 21 U/L 13-56 [facility] Serum or plasma albumin noa urement (mass/volume)Ordered By: Len Haile on 03-24-2024 Albumin [Mass/Vol] 3.4 g/dL 3.2-5.0 [facility] Serum or plasma alkaline nancy sphatase measurementOrdered By: Len Haile on 03-24-2024 ALP [Catalytic activity/Vol] 59 U/L 45-117 [facility] Serum or plasma calcium noa urement (mass/volume)Ordered By: Len Haile on 03-24-2024 Calcium [Mass/Vol] 9.2 mg/dL 8.5-10.1 [facility] Serum or plasma creatinine m easurement (mass/volume)Ordered By: Len Haile on 03-24-2024 Creatinine [Mass/Vol] 0.55 mg/dL 0.55-1.02 [facility] Comment on above: The validity of the calculated GFR & GFRAA in patients over 70 years has not been determined. Clinical correlation is essential. Serum or plasma urea nitroge n measurement (mass/volume)Ordered By: Len Haile on 03-24-2024 Urea nitrogen [Mass/Vol] 4 mg/dL Low 7-18 [facility] Sodium levelOrdered By: Carlos Eduardo Haile on 03-24-2024 Sodium [Moles/Vol] 139 mmol/L 136-145 [facility] Total proteinOrdered By: Madeline Haile on 03-24-2024 Protein [Mass/Vol] 6.8 g/dL 6.4-8.2 [facility] Urinalysis, Completeon 03-24 BACTERIA Normal None Seen [facility] Comment on above: Order Comment: CLEAN CATCH Result Comment: Canc elled via OM: Pt refuses the test Performed By: #### L 400.0001 #### [facility] [address] [place], [address] BILIRUBIN URINE Normal Negative [facility] Comment on above: Order Comment: CLEAN CATCH Result Comment: Canc elled via OM: Pt refuses the test Performed By: #### L 400.0001 #### [facility] [address] [place], [address] Clarity (U) Normal Clear [facility] Comment on above: Order Comment: CLEAN CATCH Result Comment: Canc elled via OM: Pt refuses the test Performed By: #### L 400.0001 #### [facility] [address] [place], [address] Color (U) Normal Yellow [facility] Comment on above: Order Comment: CLEAN CATCH Result Comment: Canc elled via OM: Pt refuses the test Performed By: #### L 400.0001 #### [facility] [address] [place], [address] EPI,SQUAMOUS Normal 5-10 [facility] Comment on above: Order Comment: CLEAN CATCH Result Comment: Canc elled via OM: Pt refuses the test Performed By: #### L 400.0001 #### [facility] [address] [place], [address] GLUCOSE, UR Normal Normal [facility] Comment on above: Order Comment: CLEAN CATCH Result Comment: Canc elled via OM: Pt refuses the test Performed By: #### L 400.0001 #### [facility] [address] [place], [address] KETONE UR Normal Negative [facility] Comment on above: Order Comment: CLEAN CATCH Result Comment: Canc elled via OM: Pt refuses the test Performed By: #### L 400.0001 #### [facility] [address] [place], [address] LEUK ESTERASE Normal Negative [facility] Comment on above: Order Comment: CLEAN CATCH Result Comment: Canc elled via OM: Pt refuses the test Performed By: #### L 400.0001 #### [facility] [address] [place], [address] Mucus Ql (Urine sed) Normal [facility] Comment on above: Order Comment: CLEAN CATCH Result Comment: Canc elled via OM: Pt refuses the test Performed By: #### L 400.0001 #### [facility] [address] [place], [address] Nitrite Ql (U) Normal Negative [facility] Comment on above: Order Comment: CLEAN CATCH Result Comment: Canc elled via OM: Pt refuses the test Performed By: #### L 400.0001 #### [facility] [address] [place], [address] OCCULT BLOOD-UR Normal Negative [facility] Comment on above: Order Comment: CLEAN CATCH Result Comment: Canc elled via OM: Pt refuses the test Performed By: #### L 400.0001 #### [facility] [address] [place], [address] pH UR Normal 5.0 - 8.0 [facility] Comment on above: Order Comment: CLEAN CATCH Result Comment: Canc elled via OM: Pt refuses the test Performed By: #### L 400.0001 #### [facility] [address] [place], [address] PROT DIPSTX Normal Negative [facility] Comment on above: Order Comment: CLEAN CATCH Result Comment: Canc elled via OM: Pt refuses the test Performed By: #### L 400.0001 #### [facility] [address] [place], [address] RBC Normal 0-5 [facility] Comment on above: Order Comment: CLEAN CATCH Result Comment: Canc elled via OM: Pt refuses the test Performed By: #### L 400.0001 #### [facility] [address] [place], [address] SP.GR. DIPSTX Normal 1.002-1.030 [facility] Comment on above: Order Comment: CLEAN CATCH Result Comment: Canc elled via OM: Pt refuses the test Performed By: #### L 400.0001 #### [facility] [address] [place], [address] UR Preservative Normal [facility] Comment on above: Order Comment: CLEAN CATCH Result Comment: Canc elled via OM: Pt refuses the test Performed By: #### L 400.0001 #### [facility] [address] [place], [address] UROBILI Normal Normal [facility] Comment on above: Order Comment: CLEAN CATCH Result Comment: Canc elled via OM: Pt refuses the test Performed By: #### L 400.0001 #### [facility] [address] [place], [address] WBC Normal 0-5 [facility] Comment on above: Order Comment: CLEAN CATCH Result Comment: Canc elled via OM: Pt refuses the test Performed By: #### L 400.0001 #### [facility] [address] [place], [address] White blood cell (WBC) count Ordered By: Len Haile on 03-24-2024 WBC (Bld) [#/Vol] 15.2 10*3/uL High 4.4-11.0 [facility] CNOVon 03-18-2024 CNOV Office Visit ([facility]) GREGG ZUNIGA ([id number]) 4 F Date Time Provider Department 03/18/24 1:30 PM CONY CARDONA [facility] During your visit today, we recorded the following information about you: Temperature Pulse Respiration Blood pressure 98.3 degrees 84/minute 18/minute 121/83 Weight 63.5 kg Cony Cardona APRN.CNP 03/18/2024 2:14 PM Signed This note was created using [employer]. Subjective Gregg Zuniga is a 23 year [...] [S89.91XA] Order(s):XR KNEE LIMITED 2V AP/LAT RIGHT [9056150] Order #: [id number] FUTURE CONSULT TO ORTHOPAEDICS [9069] Order #: [id number]: 1 FUTURE Prescriptions as of 03/18/2024 - [...] Service: OFFICE/OUTPATIENT ESTABLISHED MOD MDM 30 MIN [80599] Encounter Status:Closed by CONY CARDONA on 03/18/24 [facility] XR KNEE 2V AP/LAT RTon 03-18 [...] are maintained. IMPRESSION: No acute osseous abnormality. Supervisor [employer]: KENYA Transcribe Date/Time: Mar 18 2024 2:03P Dictated by : NAJMA MCDONOUGH DO This examination was interpreted and the report reviewed and electronically signed by: NAJMA MCDONOUGH DO on Mar 18 2024 2:04PM EST [id number] [facility] XR Knee - right AP and Later essence 03-18-2024 IMPRESSION: No acute osseous abnormality. Supervisor [employer]: KENYA Transcribe Date/Time: Mar 18 2024 2:03P [...] spaces are maintained. DIVISION OF RADIOLOGY Provider, [facility] [place] - 03/18/2024 * * *Final Report* * [...] maintained. IMPRESSION IMPRESSION: No acute osseous abnormality. Supervisor [employer]: KENYA Transcribe Date/Time: Mar 18 2024 2:03P Dictated by : NAJMA MCDONOUGH DO This examination was interpreted and the report reviewed and electronically signed by: NAJMA MCDONOUGH DO on Mar 18 2024 2:04PM [facility] Radiology Study observation (narrative) Adriana Kohelr XR Knee - right AP and Later alOrdered By: [facility] Provider on 03-18-2024 [facility] TYPE + SCREEN PRENATALon ABO O [facility] Comment on above: Order Comment: Speci men Type: BLOOD SPECIMEN Ordering Facility: [facility] Address: [address] [place] [address] Performed By: #### 5 195-3, 20574-7, 70319-4 #### [facility] CLIA [id number] [address] [place] [address] [place] Rh Nom (Bld) Negative [facility] Comment on above: Order Comment: Speci men Type: BLOOD SPECIMEN Ordering Facility: [facility] Address: [address] [place] [address] Performed By: #### 5 195-3, 49611-7, 24343-5 #### [facility] CLIA [id number] [address] [place] [address] [place] TYPE AND SCREEN EXPIRATION 03/20/2024 23:59 [facility] Comment on above: Order Comment: Speci men Type: BLOOD SPECIMEN Ordering Facility: [facility] Address: [address] [place] [address] Performed By: #### 5 195-3, 77314-6, 68374-5 #### [facility] CLIA [id number] [address] [place] [address] [place] CBC W Auto Differential pane l (Bld)on 02-18-2024 Basophils (Bld) [#/Vol] 0.03 10*3/uL Normal <0.11 [facility] Comment on above: Order Comment: Speci men Type: BLOOD SPECIMEN Ordering Facility: [facility] Address: [address] [place] [address] Performed By: #### 5 195-3, 71931-2, 14663-4 #### [facility] CLIA [id number] [address] [place] [address] [place] Basophils/100 WBC (Bld) 0.3 % Normal [facility] Comment on above: Order Comment: Speci men Type: BLOOD SPECIMEN Ordering Facility: [facility] Address: [address] [place] [address] Performed By: #### 5 195-3, 31118-0, 57947-2 #### [facility] CLIA [id number] [address] [place] [address] [place] Differential cell count method Nom (Bld) Auto [facility] Comment on above: Order Comment: Speci men Type: BLOOD SPECIMEN Ordering Facility: [facility] Address: [address] [place] [address] Performed By: #### 5 195-3, 57603-1, 30519-0 #### [facility] CLIA [id number] [address] [place] [address] [place] Eosinophils (Bld) [#/Vol] 0.45 10*3/uL Normal <0.46 [facility] Comment on above: Order Comment: Speci men Type: BLOOD SPECIMEN Ordering Facility: [facility] Address: [address] [place] [address] Performed By: #### 5 195-3, 76226-3, 52909-5 #### [facility] CLIA [id number] [address] [place] [address] [place] Eosinophils/100 WBC (Bld) 4.1 % [facility] Comment on above: Order Comment: Speci men Type: BLOOD SPECIMEN Ordering Facility: [facility] Address: [address] [place] [address] Performed By: #### 5 195-3, 57208-3, 28036-8 #### [facility] CLIA [id number] [address] [place] [address] [place] Erythrocyte distribution width (RBC) [Ratio] 12.9 % Normal 11.5-15.0 [facility] Comment on above: Order Comment: Speci men Type: BLOOD SPECIMEN Ordering Facility: [facility] Address: [address] [place] [address] Performed By: #### 5 195-3, 89218-4, 20875-0 #### [facility] CLIA [id number] [address] [place] [address] [place] Hematocrit (Bld) [Volume fraction] 41.2 % Normal 36.0-46.0 [facility] Comment on above: Order Comment: Speci men Type: BLOOD SPECIMEN Ordering Facility: [facility] Address: [address] [place] [address] Performed By: #### 5 195-3, 82922-8, 57999-0 #### [facility] CLIA [id number] [address] [place] [address] [place] Hemoglobin (Bld) [Mass/Vol] 14.4 g/dL Normal 11.5-15.5 [facility] Comment on above: Order Comment: Speci men Type: BLOOD SPECIMEN Ordering Facility: [facility] Address: [address] [place] [address] Performed By: #### 5 195-3, 77979-6, 74294-2 #### [facility] CLIA [id number] [address] [place] [address] [place] Immature granulocytes (Bld) [#/Vol] 0.03 10*3/uL Normal <0.10 [facility] Comment on above: Order Comment: Speci men Type: BLOOD SPECIMEN Ordering Facility: [facility] Address: [address] [place] [address] Performed By: #### 5 195-3, 66143-3, 04892-2 #### [facility] CLIA [id number] [address] [place] [address] [place] Immature granulocytes/100 WBC (Bld) 0.3 % [facility] Comment on above: Order Comment: Speci men Type: BLOOD SPECIMEN Ordering Facility: [facility] Address: [address] [place] [address] Performed By: #### 5 195-3, 92061-1, 20800-0 #### [facility] CLIA [id number] [address] [place] [address] [place] Lymphocytes (Bld) [#/Vol] 2.91 10*3/uL Normal 1.00-4.00 [facility] Comment on above: Order Comment: Speci men Type: BLOOD SPECIMEN Ordering Facility: [facility] Address: [address] [place] [address] Performed By: #### 5 195-3, 61223-7, 16977-7 #### [facility] CLIA [id number] [address] [place] [address] [place] Lymphocytes/100 WBC (Bld) 26.6 % [facility] Comment on above: Order Comment: Speci men Type: BLOOD SPECIMEN Ordering Facility: [facility] Address: [address] [place] [address] Performed By: #### 5 195-3, 12634-7, 20175-4 #### [facility] CLIA [id number] [address] [place] [address] [place] MCH (RBC) [Entitic mass] 30.0 pg Normal 26.0-34.0 [facility] Comment on above: Order Comment: Speci men Type: BLOOD SPECIMEN Ordering Facility: [facility] Address: [address] [place] [address] Performed By: #### 5 195-3, 01294-4, 34162-9 #### [facility] CLIA [id number] [address] [place] [address] [place] MCHC (RBC) [Mass/Vol] 35.0 g/dL Normal 30.5-36.0 [facility] Comment on above: Order Comment: Speci men Type: BLOOD SPECIMEN Ordering Facility: [facility] Address: [address] [place] [address] Performed By: #### 5 195-3, 26546-4, 23694-6 #### [facility] CLIA [id number] [address] [place] [address] [place] MCV (RBC) [Entitic vol] 85.8 fL Normal 80.0-100.0 C [facility] Comment on above: Order Comment: Speci men Type: BLOOD SPECIMEN Ordering Facility: [facility] Address: [address] [place] [address] Performed By: #### 5 195-3, 46273-0, 47014-2 #### [facility] CLIA [id number] [address] [place] [address] [place] Monocytes (Bld) [#/Vol] 0.67 10*3/uL Normal <0.87 [facility] Comment on above: Order Comment: Speci men Type: BLOOD SPECIMEN Ordering Facility: [facility] Address: [address] [place] [address] Performed By: #### 5 195-3, 08998-3, 19166-2 #### [facility] CLIA [id number] [address] [place] [address] [place] Monocytes/100 WBC (Bld) 6.1 % Normal [facility] Comment on above: Order Comment: Speci men Type: BLOOD SPECIMEN Ordering Facility: [facility] Address: [address] [place] [address] Performed By: #### 5 195-3, 53791-4, 83193-2 #### [facility] CLIA [id number] [address] [place] [address] [place] Neutrophils (Bld) [#/Vol] 6.83 10*3/uL Normal 1.45-7.50 [facility] Comment on above: Order Comment: Speci men Type: BLOOD SPECIMEN Ordering Facility: [facility] Address: [address] [place] [address] Performed By: #### 5 195-3, 99427-0, 45055-6 #### [facility] CLIA [id number] [address] [place] [address] [place] Neutrophils/100 WBC (Bld) 62.6 % [facility] Comment on above: Order Comment: Speci men Type: BLOOD SPECIMEN Ordering Facility: [facility] Address: [address] [place] [address] Performed By: #### 5 195-3, 43968-6, 11670-6 #### [facility] CLIA [id number] [address] [place] [address] [place] Nucleated RBC (Bld) [#/Vol] 10*3/uL Normal <0.01 [facility] Comment on above: Order Comment: Speci men Type: BLOOD SPECIMEN Ordering Facility: [facility] Address: [address] [place] [address] Performed By: #### 5 195-3, 51159-8, 06957-4 #### [facility] CLIA [id number] [address] [place] [address] [place] Nucleated RBC/100 WBC (Bld) [Ratio] 0.0 /100 WBC [facility] Comment on above: Order Comment: Speci men Type: BLOOD SPECIMEN Ordering Facility: [facility] Address: [address] [place] [address] Performed By: #### 5 195-3, 56274-3, 64506-3 #### [facility] CLIA [id number] [address] [place] [address] [place] Platelet mean volume (Bld) [Entitic vol] 9.7 fL Normal 9.0-12.7 [facility] Comment on above: Order Comment: Speci men Type: BLOOD SPECIMEN Ordering Facility: [facility] Address: [address] [place] [address] Performed By: #### 5 195-3, 24106-0, 19562-8 #### [facility] CLIA [id number] [address] [place] [address] [place] Platelets (Bld) [#/Vol] 320 10*3/uL Normal 150-400 [facility] Comment on above: Order Comment: Speci men Type: BLOOD SPECIMEN Ordering Facility: [facility] Address: [address] [place] [address] Performed By: #### 5 195-3, 92541-3, 85089-2 #### [facility] CLIA [id number] [address] [place] [address] [place] RBC (Bld) [#/Vol] 4.80 10*6/uL Normal 3.90-5.20 [facility] Comment on above: Order Comment: Speci men Type: BLOOD SPECIMEN Ordering Facility: [facility] Address: [address] [place] [address] Performed By: #### 5 195-3, 61251-9, 63398-2 #### [facility] CLIA [id number] [address] [place], [place] [address] [address] [place] WBC (Bld) [#/Vol] 10.92 10*3/uL Normal 3.70-11.00 [facility] Comment on above: Order Comment: Speci men Type: BLOOD SPECIMEN Ordering Facility: [facility] Address: [address] [place] [address] Performed By: #### 5 195-3, 02070-8, 16573-6 #### [facility] CLIA [id number] [address] [place] [address] [place] nuchal translucency me asured by USon 02-18-2024 Indication First trimester anatomic survey Impression REMOTE READ The patient is referred for a first trimester anatomy scan including nuchal translucency measurement as clinically indicated. - Single, live, intrauterine . - [place] rump length measurement is consistent with the [...] 1 Para 0 Method Transabdominal ultrasound examination Fitzgerald . Number of fetuses: 1 Dating LMP [...] view: visualized 4-chamber view with color: visualized 2-fbdrln-kwximdi view: normal Abdominal cord insertion: normal Stomach: [...] ovary: Not visualized Performed By: Mary Grace Lopez RDMS, RVT Read By: Marlene Prakash M.D. MATERNAL MEDICINE [facility] Radiology Study observation (narrative) [facility] HBV surface Ag Ser Qlon 02-02 HBV surface Ag Ql (S) Negative Normal Negative [facility] Comment on above: Order Comment: Speci men Type: BLOOD SPECIMEN Ordering Facility: [facility] Address: [address] [place] [address] Performed By: #### 5 195-3, 44417-1, 06624-7 #### [facility] CLIA [id number] [address] [place] [address] OF [place] HCV Ab Ser Qlon 02-18-2024 HCV Ab Ql (S) Negative Normal [facility] Comment on above: Order Comment: Speci men Type: BLOOD SPECIMEN Ordering Facility: [facility] Address: [address] [place] [address] Result Comment: The result suggests no evidence of active infection with Hepatitis C virus. Should recent infection be suspected, repeat testing may be considered 4-6 weeks after this draw. Performed By: #### 5 195-3, 66734-9, 51335-9 #### [facility] CLIA [id number] [address] [place] [address] [place] HIV 1+2 Ab IA Qlon 4 HIV 1 and 2 Ab IA.rapid Nom (S/P/Bld) [facility] Comment on above: Order Comment: Speci men Type: BLOOD SPECIMEN Ordering Facility: [facility] Address: [address] [place] [address] Result Comment: Test not indicated. Performed By: #### 5 195-3, 72675-1, 80364-8 #### [facility] CLIA [id number] [address] [place] [address] [place] HIV 1+2 Ab+HIV1 p24 Ag IA Ql Non-Reactive Normal Nonreactive [facility] Comment on above: Order Comment: Speci men Type: BLOOD SPECIMEN Ordering Facility: [facility] Address: [address] [place] [address] Performed By: #### 5 195-3, 60550-3, 69374-7 #### [facility] CLIA [id number] [address] [place] [address] [place] HIV immunoassay testing algorithm interpretation (S/P/Bld) [Interp] [facility] Comment on above: Order Comment: Speci men Type: BLOOD SPECIMEN Ordering Facility: [facility] Address: [address] [place] [address] Result Comment: No e vidence of HIV-1 or HIV-2 infection. Should recent infection be suspected, repeat testing may be considered 2-3 weeks after this draw. [place] Rev. Code 3701.243(E): This information has been [...] test results or diagnoses. Performed By: #### 5 195-3, 81311-7, 78032-5 #### [facility] CLIA [id number] [address] [place] [address] [place] HbA1c (Bld)on 02-18-2024 Average glucose Estimated from glycated hemoglobin (Bld) [Mass/Vol] 80 mg/dL [facility] Comment on above: Order Comment: Speci men Type: BLOOD SPECIMENOrdering Facility: [facility] Address: [address] [place] [address] Result Comment: eAG: (Estimated average glucose) is a calculated value from HgbA1c and is vendor representatives of the average blood glucose level in the last 2-3 month period. Performed By: #### 5 5454-3 ####[facility] [id number] [address] STATES OF [facility] HbA1c (Bld) [Mass fraction] 4.4 % Normal 4.3-5.6 [facility] Comment on above: Order Comment: Speci men Type: BLOOD SPECIMENOrdering Facility: [facility] Address: [address] [place] [address] Result Comment: Amer ican Diabetes Association guidelines indicate that patients with HgbA1c in the range 5.7-6.4% are at increased risk for development of diabetes, and intervention by lifestyle modification may be beneficial. HgbA1c greater or equal to 6.5% is considered diagnostic of diabetes. Performed By: #### 5 5454-3 ####[facility] [id number] [place] [address] [place] [id number] PLUSon 02-18-2024 Cell-free DNA./Cell-free DNA.total Dosage of chromosome-specific cfDNA (cfDNA) [Molar fraction] 20% [facility] Comment on above: Order Comment: Speci men Type: BLOOD SPECIMENOrdering Facility: [facility] Address: [address] [place] [address] Performed By: #### M AT21 ####[facility]IA [id number] [place] [address] Chr 13+18+21+X+Y aneuploidy Dosage of chromosome-specific cfDNA Ql (cfDNA) Negative [facility] Comment on above: Order Comment: Speci men Type: BLOOD SPECIMENOrdering Facility: [facility] Address: [address] [place] [address] Performed By: #### M AT21 ####[facility] LABCLIA [id number] [place] [address] Chr 21 trisomy Dosage of chromosome-specific cfDNA Ql (cfDNA) Negative [facility] Comment on above: Order Comment: Speci men Type: BLOOD SPECIMENOrdering Facility: [facility] Address: [address] [place] [address] Performed By: #### M AT21 ####[facility] LABCLIA [id number] [place] [address] Chr X and Y aneuploidy risk Sequencing Ql (cfDNA) [Interp] Not detected [facility] Comment on above: Order Comment: Speci men Type: BLOOD SPECIMENOrdering Facility: [facility] Address: [address] [place] [address] Result Comment: Not Detected Not Detected Performed By: #### M AT21 ####[facility] LABCLIA [id number] [place] [address] Citation Jalen (Reference lab test) Comment [facility] Comment on above: Order Comment: Speci men Type: BLOOD SPECIMENOrdering Facility: [facility] Address: [address] [place] [address] Result Comment: 1. P anita SAEED, et al. Gabrielle Med. 2012;14(3):296-305. 2. Castillo RUFFIN, et al. Prenat Diag. 2013;33(6):591-597. 3. Jono C, et al. Clin Chem. 2015 Apr;61(4):608-616. 4. Kimmy SAEED et al. Gabrielle Med. 2011;13(11):913-920. 5. ACOG/SMFM Practice Bulletin No. 226, Dec 2019. Performed By: #### M AT21 ####[facility] LABCLIA [id number] [place] [address] Gestational age Estimated from conception date Fitzgerald [facility] Comment on above: Order Comment: Speci men Type: BLOOD SPECIMENOrdering Facility: [facility] Address: [address] [place] [address] Performed By: #### M AT21 ####[facility] LABCLIA [id number] [place] [id number] GESTATIONALAGE AGE > OR = 9W Yes [facility] Comment on above: Order Comment: Speci men Type: BLOOD SPECIMENOrdering Facility: [facility] Address: [address] [place] [address] Performed By: #### M AT21 ####[facility] LABCLIA [id number] [place] [address] Laboratory comment Jalen (Report) Comment [facility] Comment on above: Order Comment: Speci men Type: BLOOD SPECIMENOrdering Facility: [facility] Address: [address] [place] [address] Result Comment: The MaterniT(R) 21 PLUS laboratory-developed test (LDT) analyzes circulating cell-free DNA from a maternal blood sample. This test is used for screening purposes and not diagnostic. Clinical correlation is recommended. Validation data on twin pregnancies is limited and the ability of this test to detect aneuploidy in higher multiple gestations has not yet been validated. Performed By: #### M AT21 ####[facility] LABCLIA [id number] [place] [id number] director of transportation name Nom (Provider) Comment [facility] Comment on above: Order Comment: Speci men Type: BLOOD SPECIMENOrdering Facility: [facility] Address: [address] [place] [address] Result Comment: This specimen showed an expected representation of chromosome 21, 18 and 13 material. Clinical correlation is suggested. Comment Scott Euceda MD, PhD, Director, [employer] Performed By: #### M AT21 ####[facility] LABCLIA [id number] [place] [address] LIMITATIONS OF THE TEST Comment Normal C [facility] Comment on above: Order Comment: Speci men Type: BLOOD SPECIMENOrdering Facility: [facility] Address: [address] [place] [address] Result Comment: Abelardo robert the results of these tests are highly [...] Xaparin(R), Clexane(R) and Fragmin(R)). Performed By: #### M AT21 ####[facility] LABCLIA [id number] [place] [address] Monosomy X risk Dosage of chromosome-specific cfDNA Ql (Plasma cell-free+WBC DNA) [Interp] Not detected [facility] Comment on above: Order Comment: Speci men Type: BLOOD SPECIMENOrdering Facility: [facility] Address: [address] [place] [address] Performed By: #### M AT21 ####[facility]CLIA [id number] [place] [address] NEGATIVE PREDICTIVE VALUE Note [facility] Comment on above: Order Comment: Speci men Type: BLOOD SPECIMENOrdering Facility: [facility] Address: [address] [place] [address] Result Comment: The Negative Predictive Value (NPV) for trisomy 21, 18, and 13 is greater than 99%. The NPV for SCA and ESS cannot be calculated as SCA and ESS are only reported when an abnormality is detected. Performed By: #### M AT21 ####[facility] LABCLIA [id number] [place] [address] NOTE Comment [facility] Comment on above: Order Comment: Speci [facility] Type: BLOOD SPECIMENOrdering Facility: [facility] Address: [address] [place] [address] Result Comment: See Notes [employer] is a subsidiary of [employer], using the brand [employer]. This test was developed and its performance characteristics determined by [employer]. It has not been cleared or approved by the Food and Drug Administration. This laboratory is certified under the Clinical Laboratory Improvement Amendments (CLIA) as qualified to perform high complexity clinical laboratory testing and accredited by the College [employer] (CAP). If there is future clinical need for adding MaterniT GENOME testing, this specimen will be available until term. [facility] samples will not be retained beyond 60 days. [facility] patients will have to send a new sample for re-sequencing (LCA Test Code: 110646). Performed By: #### M AT21 ####[facility]IA [id number] [facility] [address] PERFORMANCE CHARACTERISTICS Note [facility] Comment on above: Order Comment: Anjalii men Type: BLOOD SPECIMENOrdering Facility: [facility] Address: [address] [place] [address] Result Comment: ! Sex ! Accuracy: 99.4% [...] ! ! ! * As reported in [facility]AA database nstd37 [https://www.ncbi.nlm.nih.gov/dbvar/studies/nstd37/ ] # Estimated Sensitivity. Sensitivity estimated across the observed size distribution of each syndrome [per ISCA database nstd37] and across the range of fractions observed in routine clinical NIPT. Actual sensitivity can also be influenced by other factors such as the size of the event, total sequence counts, amplification bias, or sequence bias. ## Fitzgerald gestation only. Performed By: #### M AT21 ####[employer] LABSypherlinkIA [id number] [place] [address] POSITIVE PREDICTIVE VALUE N/A [facility] Comment on above: Order Comment: Hilda barry Type: BLOOD SPECIMENOrdering Facility: [facility] Address: [address] [place] [address] Performed By: #### M AT21 ####[facility] LABCLIA [id number] [place] [address] Reference Lab Test Method Comment [facility] Comment on above: Order Comment: Hilda barry Type: BLOOD SPECIMENOrdering Facility: [facility] Address: [address] [place] [address] Result Comment: See Notes Circulating cell-free DNA [...] chromosomes 16 and 22. Performed By: #### M AT21 ####[facility] LABCLIA [id number] [place] [address] Sex Dosage of chromosome-specific cfDNA Nom (cfDNA) Comment [facility] Comment on above: Order Comment: Speci men Type: BLOOD SPECIMENOrdering Facility: [facility] Address: [address] [place] [address] Result Comment: Cons istent with Male Performed By: #### M AT21 ####[facility] LABCLIA [id number] [place] [address] Test performance information Jalen (Unsp spec) Comment [facility] Comment on above: Order Comment: Speci men Type: BLOOD SPECIMENOrdering Facility: [facility] Address: [address] [place] [address] Result Comment: The performance characteristics of the MaterniT(R) 21 PLUS laboratory-developed test (LDT) have been determined in a clinical validation study with women at increased risk for chromosomal aneuploidy.[1-4] Performed By: #### M AT21 ####[facility] LABCLIA [id number] [place] [address] Trisomy 13 risk Dosage of chromosome-specific cfDNA Ql (cfDNA) [Interp] Negative [facility] Comment on above: Order Comment: Speci men Type: BLOOD SPECIMENOrdering Facility: [facility] Address: [address] [place] [address] Performed By: #### M AT21 ####[facility] LABCLIA [id number] [place] [address] Trisomy 18 risk Dosage of chromosome-specific cfDNA Ql (Plasma cell-free+WBC DNA) [Interp] Negative [facility] Comment on above: Order Comment: Speci men Type: BLOOD SPECIMENOrdering Facility: [facility] Address: [address] [place] [address] Performed By: #### M AT21 ####[facility] LABCLIA [id number] [place] [address] RUBELLA IGG ANTIBODYon 02-17 RUBELLA IGG AB, QUAL Positive Normal Positive [facility] Comment on above: Order Comment: Speci men Type: BLOOD SPECIMENOrdering Facility: [facility] Address: [address] [place] [address] Result Comment: The result suggests recent or past exposure to Rubella virus or history of Rubella vaccination. Positive result may also be seen due to presence of passively-transferred antibodies. Please correlate with patient's history. Performed By: #### R UBIGG ####[facility] LABCLIA [id number] [place] [address] [place] Reagin and Treponema pallidu m IgG and IgM [Interp]on 02-18-2024 T. pallidum IgG+IgM IA Ql (S) Non-Reactive Normal Non[facility] Comment on above: Order Comment: Speci men Type: BLOOD SPECIMEN [facility] Address: [address] [place] [address] Performed By: #### 5 195-3, 83772-3, 51168-2 #### [facility] CLIA [id number] [address] [place] [address] [place] Reagin+T pallidum IgG+IgM Se rPl-Impon 02-18-2024 Reagin and Treponema pallidum IgG and IgM [Interp] Cannot exclude recent Treponemal infection if specimen collected within 7-10 days after appearance of suspect lesions or 2-3 weeks after an exposure. Clinical correlation is required. [facility] Comment on above: Order Comment: Speci men Type: BLOOD SPECIMEN [facility] Address: [address] [place] [address] Performed By: #### 5 195-3, 68876-6, 29804-0 #### [facility] CLIA [id number] [address] [place] [address] [place] Bacteria Ur Culton Bacteria identified Cx Nom (U) ORGANISM ID: 1 <10,000 CFU/ml Normal urogenital reza [facility] Comment on above: Performed By: #### 5 7021-8 #### [facility] CLIA [id number] [address] [place] [address] [place] C. trachomatis+N. gonorrhoea e DNA RICHARD+probe Ql (Unsp spec)on 01-14-2024 C. trachomatis rRNA RICHARD+probe Ql (Unsp spec) Negative Normal Negative for Chlamydia trachomatis by amplificaton [facility] Comment on above: Order Comment: Speci men Type: SWABOrdering Facility: [facility] Address: [address] [place] [address] Performed By: #### 3 6902-5 ####[facility] LABCLIA [id number] [place] [address] [place] N. gonorrhoeae rRNA RICHARD+probe Ql (Unsp spec) Negative Normal Negative for Neisseria gonorrhoeae by amplification [facility] Comment on above: Order Comment: Speci men Type: SWABOrdering Facility: [facility] Address: [address] [place] [address] Performed By: #### 3 6902-5 ####[facility] LABCLIA [id number] [place] [address] [place] PAP TESTon 01-14-2024 ADEQUACY [facility] Comment on above: Order Comment: Speci men Type: BLOOD SPECIMEN [facility] Address: [address] [place] [address] Result Comment: Sati sfactory for interpretation. No endocervical component Performed By: #### 5 195-3, 53836-3, 76181-8 #### [facility] CLIA [id number] [address] [place] [address] [place] CASE REPORT [facility] Comment on above: Order Comment: Speci men Type: BLOOD SPECIMEN [facility] Address: [address] [place] [address] Result Comment: Gyne cologic Cytology Report Case: [id number] Authorizing Provider: Angie Ocasio APRN.BUILDING OPERATOR Collected: 01/14/2024 09:13 AM Ordering Location: OB/Gynecology Received: 01/14/2024 01:06 PM First Screen: Gareth Swanson Tech Specimen: Pap Test, ThinPrep, Cervix Performed By: #### 5 195-3, 33108-4, 04631-4 #### [facility] CLIA [id number] [address] [place] [address] [place] CLINICAL HISTORY, CYTOLOGY, SUPERVISOR SMALL APPLIANCE ASSEMBLY Routine Exam [facility] Comment on above: Order Comment: Speci men Type: BLOOD SPECIMEN [facility] Address: [address] [place] [address] Performed By: #### 5 195-3, 88622-7, 81613-1 #### [facility] CLIA [id number] [address] [place] [address] [place] FINAL PERFORMING LAB [facility] Comment on above: Order Comment: Speci men Type: BLOOD SPECIMEN [facility] Address: [address] [place] [address] Result Comment: Tech nical component, boilermaker's assistant screening performed at [facility], [address] [place] [address] CLIA# [id number] Diagnostic interpretation performed at [facility], [address] [place] [address] CLIA# [id number] Sr. Merchandise Planner: Julien Link M.D. Performed By: #### 5 195-3, 29588-2, 77523-9 #### [facility] CLIA [id number] [address] [place] [address] [place] INTERPRETATION, CYTOLOGY, SUPERVISOR SMALL APPLIANCE ASSEMBLY [facility] [facility] Comment on above: Order Comment: Speci men Type: BLOOD SPECIMEN Ordering Facility: [facility] Address: [address] [place] [address] Result Comment: Nega tive for intraepithelial lesion or malignancy. Performed By: #### 5 195-3, 58403-7, 80931-0 #### [facility] CLIA [id number] [address] [place] [address] [place] LMP 11/23/2023 [facility] Comment on above: Order Comment: Speci men Type: BLOOD SPECIMEN Ordering Facility: [facility] Address: [address] [place] [address] Performed By: #### 5 195-3, 79881-5, 84159-8 #### [facility] CLIA [id number] [address] [place] [address] [place] PAP DISCLAIMER COMMENT The Pap Smear is a screening test for cervical cancer. False negative results occur with all screening tests, emphasizing the need for rescreening at recommended intervals, and clinical correlation. [facility] Comment on above: Order Comment: Speci men Type: BLOOD SPECIMEN Ordering Facility: [facility] Address: [address] [place] [address] Performed By: #### 5 195-3, 82803-0, 58616-6 #### [facility] CLIA [id number] [address] [place] [address] [place] PAP MILIEU TECHNICIAN COMMENT This specimen has been analyzed by the ThinPrep Imaging System, an automated imaging and review system, which assists the laboratory in evaluating cells on ThinPrep Pap tests. Following automated imaging, selected villanueva from every slide are reviewed by a boilermaker's assistant. [facility] Comment on above: Order Comment: Speci men Type: BLOOD SPECIMEN Ordering Facility: [facility] Address: [address] [place] [address] Performed By: #### 5 195-3, 96796-2, 57706-8 #### [facility] CLIA [id number] [address] [place] [address] [place] POC DOG OR HORSE RACING OFFICIAL ULTRASOUNDon 01-14-20 Indication Confirmation of intrauterine . Confirmation of cardiac activity Impression CRL is appropriate for clinical dates, corresponding to JEM 08/29/24 , cardiac activity is visualized Recommendations Follow up for NT scan if desired Method Transabdominal ultrasound examination. View: Adequate visualization Fitzgerald . Number of embryos: 1 Dating LMP [...] Read By: Angie Ocasio CNP MATERNAL MEDICINE [facility] Radiology Study observation (narrative) Adriana irby [facility] Urgent Care Visit Reporton 1 03-11-2023 Urgent Care Visit Report [facility] [address], [address] [place] [address] OFFICE VISIT Date of Service: 01/10/24 MR#: [id number] Acct: [id number] Name: GREGG ZUNIGA Rep #: [id number] : 2000 Provider: ARDEN Baldwin Age/Sex: 23/F Location: [facility] Status: Signed Intake Vital Signs 11/01/23 11:55 01/10/24 08:43 Height 5 ft 1 in BP 126/68 H Blood Pressure Location Rt brachial Position Sitting Respiration 15 Pulse 89 Pulse Source NIBP Temp 98.7 F Temp Source Oral Pulse Oximetry (%) 98 Oxygen Delivery Method room air Intake Visit Reasons: BILAT EAR PAIN/POLLOCK/SINUS COMPLAINT Chief Complaint: ear pain, PND, POLLOCK, grn mucus Cleaner Required: No Is patient in pain?: Yes [...] declines covid testing. info given to provider. [facility] Medical History Physical exam, pre-employment Palpitations Chest [...] Exam Const General: cooperative and healthy appearing HENMT Head: normal to inspection Ears: hearing [...] Code Off vis,est,level 3 Diagnoses Acute sinusitis J01.90 Assessment and Plan Assessment and Plan (1) [...] you fallen in the past year?: No 01/10/24 0907 Date Rick Adan Signature: Date (if ap (more content not included)... Normal [facility] CNCOon 12-24-2023 CNCO Letter Text [facility] CNOVon 12-24-2023 CNOV Office Visit (CARDMN) GREGG ZUNIGA ([id number]) 4 F Date Time Provider Department 12/24/23 8:30 AM JAY BYRD CARDMN During your visit today, we recorded the following information about you: Pulse Blood pressure Weight Height 99/minute 134/84 62 kg 1.562 m Jay Byrd MD 12/24/2023 9:21 AM Signed [facility] Department of Cardiovascular Medicine SECTION OF CARDIAC PACING and ELECTROPHYSIOLOGY OUTPATIENT VISIT DATE December 24, 2023 OUTPATIENT VISIT TYPE NEW PRIMARY CARE PHYSICIAN: Kayleen Mckay MD [facility] [place] [address] REFERRING PHYSICIAN: Edith Pablo [place] [address] CHIEF COMPLAINT: Consultation for tachycardias and syncope [...] 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 She has caffeine a few times a [...] She monitors her heart rate using an Lieferheld Watch and a pulse oximeter. Increased dosage [...] MEDICINE TESTING: (more content not included)... [facility] ECG COMPLETEon 12-24-2023 ECG COMPLETE Ventricular Rate : 93 BPM Atrial Rate : 93 BPM P-R Interval : 144 ms QRS Duration : 82 ms Q-T Interval : 330 ms QTC Calculation(Bazett) : 410 ms Calculated P [place] : 68 degrees Calculated R [place] : 64 degrees Calculated T [place] : 39 degrees SINUS RHYTHM WITH PREMATURE SUPRAVENTRICULAR COMPLEXES OTHERWISE NORMAL ECG Confirmed by MD VASQUEZ HEBA ([id number]) on 01/07/2024 8:38:02 PM NAME : GREGG ZUNIGA PID : [id number] : 2000 Gender : Female Race : ORD : [id number] Procedure Date : Dec 24 2023 08:04:19 Edit Date : Jan 07 2024 20:38:04 Diagnosis: SINUS RHYTHM WITH PREMATURE SUPRAVENTRICULAR COMPLEXES OTHERWISE NORMAL ECG Confirmed by MD VASQUEZ HEBA ([id number]) on 01/07/2024 8:38:02 PM Test Reason : Location : [facility] : J14 J1-4 Overread By : MD VASQUEZ HEBA Edited By : MD VASQUEZ HEBA Referred By : JAY BYRD Acquired by : MINERVA SAHA [facility] ECHOon 12-24-2023 CONCLUSIONS: - Exam indication: [...] [facility] Echocardiography Report: Transthoracic Echo [facility] Date of service: 12/24/2023 10:56:13 AM SLUDGE MIXER Ordering physician: JAY BYRD Indication: Syncope, Tachycardia, PVC's Technologist: Dominguez Pinto [facility] Interpreting physician: Sylvie Romero MD PATIENT: Name: [...] volume 50 ml (biplane A-L) 30 ml/m sE <= 34 LV ID (diastole) 4.3 cm [...] epicardial fat pad. [facility] Echocardiography Echocardiography Report: Transthoracic Echo [facility] Date of service: 12/24/2023 10:56:13 AM SLUDGE MIXER Ordering physician: JAY BYRD Indication: Syncope, Tachycardia, PVC's Technologist: Dominguez Pinto [facility] Interpreting physician: Sylvie Romero MD PATIENT: Name: [...] * * Final * * * CC [employer] [facility] Image : [id number]. [id number] [facility] 12 Lead EKGon 11-01-2023 12 Lead EKG [facility] Cardiovascular Services [address] [place] [address] 12 Lead EKG 11/01/23 1200 MR#: [id number] Acct: [id number] Name: GREGG ZUNGIA Rep #: [id number] : 2000 23 From: Rubio Paulino MD [...] POSSIBLY AGE RELATED Confirmed by Rubio Paulino ([id number]), editor greeting card AGUSTIN MCCLURE ([id number]) on 11/02/2023 8:19:05 AM Referred By: RUTHIE/ROBIN Confirmed By:Rubio Paulnio 11/02/23818 Date Rubio Paulino MD CC: Dr. Antoine Dodson MD; Dr. Kayleen Mckay MD Signed Normal [facility] Basic Metabolic Profile (BMP )on 11-01-2023 BUN/CRE 6.8 RATIO Low 10-20 [facility] Comment on above: Order Comment: 1Y Performed By: #### L 503.7505, L504.2610, L501.2450, L100.0100, L500.4050 #### [facility] [address] [place], [address] CA,Total 9.3 mg/dL Normal 8.5-10.1 [facility] Comment on above: Order Comment: 1Y Performed By: #### L 503.7505, L504.2610, L501.2450, L100.0100, L500.4050 #### [facility] [address] [place], [address] Chloride [Moles/Vol] 107 mmol/L Normal 98-107 [facility] Comment on above: Order Comment: 1Y Performed By: #### L 503.7505, L504.2610, L501.2450, L100.0100, L500.4050 #### [facility] [address] [place], [address] CO2 [Moles/Vol] 23.0 mmol/L Normal 21.0-32.0 [facility] Comment on above: Order Comment: 1Y Performed By: #### L 503.7505, L504.2610, L501.2450, L100.0100, L500.4050 #### [facility] [address] [place], [address] Creatinine [Mass/Vol] 0.74 mg/dL Normal 0.55-1.02 [facility] Comment on above: Order Comment: 1Y Result Comment: The validity of the calculated GFR GFRAA in patients over 70 years has not been determined. Clinical correlation is essential. Performed By: #### L 503.7505, L504.2610, L501.2450, L100.0100, L500.4050 #### [facility] [address] [place], [address] ECRCL 103.66 ml/min Normal [facility] Comment on above: Order Comment: 1Y Performed By: #### L 503.7505, L504.2610, L501.2450, L100.0100, L500.4050 #### [facility] [address] [place], [address] EST GFR - AA 127 mL/min Normal >60 [facility] Comment on above: Order Comment: 1Y Result Comment: Afri can Ethiopian GFR Calc Performed By: #### L 503.7505, L504.2610, L501.2450, L100.0100, L500.4050 #### [facility] [address] [place], [address] GAP 7 Normal 5-15 [facility] Comment on above: Order Comment: 1Y Performed By: #### L 503.7505, L504.2610, L501.2450, L100.0100, L500.4050 #### [facility] [address] [place], [address] GFR/1.73 sq M.predicted among non-blacks MDRD (S/P/Bld) [Vol rate/Area] 105 mL/min/{1.73_m2} Normal >60 [facility] Comment on above: Order Comment: 1Y Result Comment: Non- GFR Calc Performed By: #### L 503.7505, L504.2610, L501.2450, L100.0100, L500.4050 #### [facility] [address] [place], [address] Glucose [Mass/Vol] 112 mg/dL High 74-106 [facility] Comment on above: Order Comment: 1Y Result Comment: Fast ing Glucose result from 100 to 125 mg/dL suggests IMPAIRED HOMEOSTASIS per A.D.A. criteria. Performed By: #### L 503.7505, L504.2610, L501.2450, L100.0100, L500.4050 #### [facility] [address] [place], [address] Potassium [Moles/Vol] 3.3 mmol/L Low 3.5-5.1 [facility] Comment on above: Order Comment: 1Y Performed By: #### L 503.7505, L504.2610, L501.2450, L100.0100, L500.4050 #### [facility] [address] [place], [address] Sodium [Moles/Vol] 137 mmol/L Normal 136-145 [facility] Comment on above: Order Comment: 1Y Performed By: #### L 503.7505, L504.2610, L501.2450, L100.0100, L500.4050 #### [facility] [address] [place], [address] Urea nitrogen [Mass/Vol] 5 mg/dL Low 7-18 [facility] Comment on above: Order Comment: 1Y Performed By: #### L 503.7505, L504.2610, L501.2450, L100.0100, L500.4050 #### [facility] [address] [place], [address] CBC W/Diff, Automatedon 10-04-2023 Absolute Lymph 0.44 X10 3/uL Low 0.83-4.51 [facility] Comment on above: Performed By: #### L 503.7505, L504.2610, L501.2450, L100.0100, L500.4050 #### [facility] [address] [place], [address] Absolute Neut 9.2 X10 3/uL High 2.0-7.7 [facility] Comment on above: Performed By: #### L 503.7505, L504.2610, L501.2450, L100.0100, L500.4050 #### [facility] [address] [place], [address] Basophils/100 WBC (Bld) 0.3 % Normal 0-1 [facility] Comment on above: Performed By: #### L 503.7505, L504.2610, L501.2450, L100.0100, L500.4050 #### [facility] [address] [place], [address] Eosinophils/100 WBC (Bld) 3.5 % Normal 0-5 [facility] Comment on above: Performed By: #### L 503.7505, L504.2610, L501.2450, L100.0100, L500.4050 #### [facility] [address] [place], [address] Erythrocyte distribution width (RBC) [Ratio] 12.2 % Normal 11.6-14.6 [facility] Comment on above: Performed By: #### L 503.7505, L504.2610, L501.2450, L100.0100, L500.4050 #### [facility] [address] [place], [address] Hematocrit (Bld) [Volume fraction] 40.5 % Normal 37-47 [facility] Comment on above: Performed By: #### L 503.7505, L504.2610, L501.2450, L100.0100, L500.4050 #### [facility] [address] [place], [address] Hemoglobin (Bld) [Mass/Vol] 14.1 g/dL Normal 12.0-15.0 [facility] Comment on above: Performed By: #### L 503.7505, L504.2610, L501.2450, L100.0100, L500.4050 #### [facility] [address] [place], [address] IG% 0.200 Normal 0.0-0.9 [facility] Comment on above: Result Comment: IG% - Immature Granulocytes (promyelocytes, myelocytes and metamyelocytes) > 1% indicates that a LEFT SHIFT is Present. Performed By: #### L 503.7505, L504.2610, L501.2450, L100.0100, L500.4050 #### [facility] [address] [place], [address] Lymphocytes/100 WBC (Bld) 4.1 % Low 19-41 [facility] Comment on above: Performed By: #### L 503.7505, L504.2610, L501.2450, L100.0100, L500.4050 #### [facility] [address] [place], [address] MCH (RBC) [Entitic mass] 29.9 pg Normal 27.0-32.0 [facility] Comment on above: Performed By: #### L 503.7505, L504.2610, L501.2450, L100.0100, L500.4050 #### [facility] [address] [place], [address] MCHC (RBC) [Mass/Vol] 34.8 g/dL Normal 32-36 [facility] Comment on above: Performed By: #### L 503.7505, L504.2610, L501.2450, L100.0100, L500.4050 #### [facility] [address] [place], [address] MCV (RBC) [Entitic vol] 86.0 fL Normal 81-99 [facility] Comment on above: Performed By: #### L 503.7505, L504.2610, L501.2450, L100.0100, L500.4050 #### [facility] [address] [place], [address] Monocytes/100 WBC (Bld) 6.3 % Normal 0-10 [facility] Comment on above: Performed By: #### L 503.7505, L504.2610, L501.2450, L100.0100, L500.4050 #### [facility] [address] [place], [address] Neutrophils/100 WBC (Bld) 85.6 % High 47-70 [facility] Comment on above: Performed By: #### L 503.7505, L504.2610, L501.2450, L100.0100, L500.4050 #### [facility] [address] [place], [address] Nucleated RBC (Bld) [#/Vol] 0 10*3/uL Normal 0-5 [facility] Comment on above: Performed By: #### L 503.7505, L504.2610, L501.2450, L100.0100, L500.4050 #### [facility] [address] [place], [address] Platelet mean volume (Bld) [Entitic vol] 9.6 fL Normal 6.2-12.0 [facility] Comment on above: Performed By: #### L 503.7505, L504.2610, L501.2450, L100.0100, L500.4050 #### [facility] [address] [place], [address] Platelets (Bld) [#/Vol] 274 10*3/uL Normal 150-450 [facility] Comment on above: Performed By: #### L 503.7505, L504.2610, L501.2450, L100.0100, L500.4050 #### [facility] [address] [place], [address] RBC (Bld) [#/Vol] 4.71 10*6/uL Normal 4.2-5.4 [facility] Comment on above: Performed By: #### L 503.7505, L504.2610, L501.2450, L100.0100, L500.4050 #### [facility] [address] [place], [address] RDW SD 38.5 fl Normal 35.1-43.9 [facility] Comment on above: Performed By: #### L 503.7505, L504.2610, L501.2450, L100.0100, L500.4050 #### [facility] [address] [place], [address] WBC (Bld) [#/Vol] 10.7 10*3/uL Normal 4.4-11.0 [facility] Comment on above: Performed By: #### L 503.7505, L504.2610, L501.2450, L100.0100, L500.4050 #### [facility] [address] [place], [address] Chest 1 View (Portable)on Chest 1 View (Portable) [facility] Imaging Services [address] [place] [address] Chest 1 View (Portable) MR#: [id number] Acct: [id number] Name: GREGG ZUNIGA Rep #: [id number] : 2000 F 23 From: Neville Cardenas MD PCP: Dr. Kayleen Mckay MD Status: [facility] ER Study: Chest 1 View (Portable) Date of Exam: 11/01/23 Exam# [id number] Ordering Dr: Antoine Dodson MD [id number] STUDY: X-RAY CHEST REASON FOR EXAM: Female, [...] Antoine Dodson MD; Dr. Kayleen Mckay MD Supervisor Burling And Joining: Signed Normal [facility] D-Dimer Quantitative (DVT/PE )on 11-01-2023 D-DIMER QUANT < 0.27 Low 0.27-0.49 [facility] Comment on above: Result Comment: NORM AL D-Dimer level (<0.50) indicates no DVT or PE. Performed By: #### L 503.7505, L504.2610, L501.2450, L100.0100, L500.4050 #### [facility] [address] [place], [address] Emergency Department Summary on 11-01-2023 Emergency Department Summary [facility] Medical Records Department [address] [place] [address] Emergency Department Summary 11/01/23 MR#: [id number] Acct: [id number] Name: GREGG ZUNIGA Rep #: [id number] : 2000 23 From: Antoine Dodson MD PCP: Dr. 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 Non-smoker. [facility] Medical History Physical exam, pre-employment [...] of 10. (more content not included)... Normal [facility] L501.4020on 11-01-2023 TROPONIN-I HS 4 pg/mL Normal 3.0-54.0 [facility] Comment on above: Result Comment: Plea se Note: New Test Units and Gender Specific Reference Ranges. For more information see Policy Stat Procedure [place] High Sensitivity Troponin (TNIH) and attachments. Performed By: #### L 503.7505, L504.2610, L501.2450, L100.0100, L500.4050 #### [facility] [address] [place], [address] Order Comment: 1Y Lipaseon 11-01-2023 Lipase [Catalytic activity/Vol] 15 U/L Normal 13-75 [facility] Comment on above: Result Comment: Bacilio casarez note: LIPASE revised reference range effective 22. New Lipase methodology. Expected to produce lower values than the previous assay method. NEW Reference Range: 13 - 75 U/L Performed By: #### L 503.7505, L504.2610, L501.2450, L100.0100, L500.4050 #### [facility] [address] [place], [place], [address] Magnesiumon 11-01-2023 Magnesium [Mass/Vol] 1.8 mg/dL Normal 1.6-2.6 [facility] Comment on above: Order Comment: 1Y Performed By: #### L 503.7505, L504.2610, L501.2450, L100.0100, L500.4050 #### [facility] [address] [place], [address] ,Serum,hCG Quali.on 11-01-2023 HCG, SERUM QUAL Negative Normal [facility] Comment on above: Performed By: #### L 503.7505, L504.2610, L501.2450, L100.0100, L500.4050 #### [facility] [address] [place], [place], [address] Urinalysis, Completeon 10-31 BACTERIA 1+ /hpf Normal None Seen [facility] Comment on above: Order Comment: CLEAN CATCH Performed By: #### L 503.7505, L504.2610, L501.2450, L100.0100, L500.4050 #### [facility] [address] [place], [address] EPI,SQUAMOUS 5-10 SEEN Normal 5-10 [facility] Comment on above: Order Comment: CLEAN CATCH Performed By: #### L 503.7505, L504.2610, L501.2450, L100.0100, L500.4050 #### [facility] [address] [place], [address] Mucus Ql (Urine sed) 0 SEEN Normal [facility] Comment on above: Order Comment: CLEAN CATCH Performed By: #### L 503.7505, L504.2610, L501.2450, L100.0100, L500.4050 #### [facility] [address] [place], [address] RBC 0 SEEN Normal 0-5 [facility] Comment on above: Order Comment: CLEAN CATCH Performed By: #### L 503.7505, L504.2610, L501.2450, L100.0100, L500.4050 #### [facility] [address] [place], [address] WBC 0 SEEN Normal 0-5 [facility] Comment on above: Order Comment: CLEAN CATCH Performed By: #### L 503.7505, L504.2610, L501.2450, L100.0100, L500.4050 #### [facility] [address] [place], [address] Urgent Care Visit Reporton 0 10-23-2023 Urgent Care Visit Report [facility] [address], [address] [place], [place] [address] OFFICE VISIT Date of Service: 10/23/23 MR#: [id number] Acct: [id number] Name: GREGG ZUNIGA Rep #: [id number] : 2000 Provider: ARDEN Berkowitz Age/Sex: 23/F Location: [facility] Status: Signed Intake Vital Signs 08/10/23 10:41 [...] Reasons: RASH/CONCREN FOR BITE Chief Complaint: rash Cleaner Required: No Is patient in pain?: No [...] tried triamcinolone cream and bendadryl without relief. [facility] Medical History (Updated 10/17/23 @ 16:05 by [...] DPs. Patient states she has used multiple mlwa-tbp-zwdnjty topical applications as well as oral Benadryl [...] should symptoms (more content not included)... Normal [facility] Urgent Care Visit Reporton 0 10-17-2023 Urgent Care Visit Report [facility] [address], [address] [place] [address] OFFICE VISIT Date of Service: 10/17/23 MR#: [id number] Acct: [id number] Name: GREGG ZUNIGA Rep #: [id number] : 2000 Provider: ARDEN Berkowitz Age/Sex: 23/F Location: [facility] Status: Signed Intake Vital Signs 08/10/23 10:41 [...] Adverse Reaction (Severe, Verified 08/10/23 11:28) Rash [facility] Medical History (Updated 10/17/23 @ 16:05 by Nilton HER PA) Physical exam, pre-employment Palpitations Chest pain [...] Adan Signature: Date (if applicable) CC: Normal [facility] Progress Noteon 05-02-2023 Javascript Ui Developer Authentication Interface Message Text We had the pleasure of seeing Gregg Zuniga in the [facility] at [facility] on May 02, 2023. As you know, [...] review of social history Gregg lives in [place], [place]. 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 Physical exam showed: Weight - Scale: 64 [...] complexes and a ventricular rate of 86, NM interval of 147 msec, QRS duration of [...] [facility] As Gregg is 23 years of age, she should transition to general adult cardiology for follow-up within the next year. Total encounter time was 20 minutes, which includes chart review, counseling, documentation and/or coordination of care. Normal [place] [facility] 04-25-2023 Javascript Ui Developer Authentication Interface Message Text Patient ID: Gregg [...] With Score - Health Risk Assessment - CRAFFT Eczema, unspecified type - hydrocortisone 2.5 % [...] highschool graduate. (Going to start working at [employer]. Was working at [employer]). Eating: Gregg eats regular meals including fruits [...] (more content not included)... Invalid Interpretation Code [facility] Absolute lymphocyte countOrd ered By: Thea Luque on 10-22-2022 Lymphocytes Auto (Unsp spec) [#/Vol] 2.68 10*3/uL 0.83-4.51 [facility] Basophil percentageOrdered B y: Thea Luque on 10-22-2022 Basophil percentage 5-10 SEEN /hpf 0-5 [facility] Basophils/100 WBC (Bld) 0.4 % 0-1 [facility] Chloride [Moles/Vol] 109 mmol/L 98-107 [facility] Eosinophils/100 WBC (Bld) 2.0 % 0-5 [facility] Glucose [Mass/Vol] 113 mg/dL 74-106 [facility] Comment on above: Fasting Glucose resu lt from 100 to 125 mg/dL suggests IMPAIRED HOMEOSTASIS per A.D.A. criteria. Lactate [Moles/Vol] 1.1 mmol/L 0.4-2.0 [facility] Neutrophils (Bld) [#/Vol] 9.4 10*3/uL 2.0-7.7 [facility] Neutrophils/100 WBC (Bld) 70.5 % 47-70 [facility] Potassium [Moles/Vol] 3.3 mmol/L 3.5-5.1 [facility] Sodium [Moles/Vol] 139 mmol/L 136-145 [facility] WBC (Bld) [#/Vol] 13.3 10*3/uL 4.4-11.0 [facility] Beta hCG serum qualOrdered B y: Thea Luque on 10-22-2022 Beta HCG ( test) Ql Negative [facility] Bilirubin Test strip Ql (U)O rdered By: Thea Luque on 10-22-2022 Bilirubin Ql (U) 1 mg/dL Negative [facility] Comment on above: COLOR OF URINE MAY A FFECT DIPSTICK RESULTS. Blood erythrocytes count (nu mber/volume)Ordered By: Thea Ibarraradha on 10-22-2022 RBC (Bld) [#/Vol] 4.81 10*6/uL 4.2-5.4 [facility] Blood hemoglobin measurement (mass/volume)Ordered By: Thea Ibarraradha on 10-22-2022 Hemoglobin (Bld) [Mass/Vol] 14.1 g/dL 12.0-15.0 [facility] Blood lymphocytes/100 leukoc ytesOrdered By: Tanya Ene on 10-22-2022 Lymphocytes/100 WBC (Bld) 20.1 % 19-41 [facility] Blood monocytes/100 leukocyt esOrdered By: [facility] on 10-22-2022 Monocytes/100 WBC (Bld) 6.5 % 0-10 [facility] Blood platelet mean volumeOr dered By: Thea Luque on 10-22-2022 Platelet mean volume (Bld) [Entitic vol] 10.7 fL 6.2-12.0 [facility] Determination of erythrocyte mean corpuscular volume (MCV)Ordered By: [facility] on 10-22-2022 MCV (RBC) [Entitic vol] 87.1 fL 81-99 [facility] Hematocrit Auto (Bld) [Volum e fraction]Ordered By: [facility] on 10-22-2022 Hematocrit (Bld) [Volume fraction] 41.9 % 37-47 [facility] Ketones Test strip Ql (U)Ord ered By: [facility] on 10-22-2022 Ketones Ql (U) 150 mg/dl Negative [facility] Comment on above: CRITICAL VALUE *HCRI TICAL VALUE VERIFIED. CALLED TO ORLIN [id number] Nancy Guzman.RESULTS READ BACK BY SAME . Laboratory - Chemistry and C hemistry - challengeOrdered By: Thea Luque on 10-22-2022 CO2 [Moles/Vol] 21.0 mmol/L 21.0-32.0 [facility] Urea nitrogen/Creatinine [Mass ratio] 11.8 mg/mg 10-20 [facility] Laboratory - Hematology and Cell countsOrdered By: [facility] on 10-22-2022 Erythrocyte distribution width (RBC) [Entitic vol] 38.5 fL 35.1-43.9 [facility] Erythrocyte distribution width (RBC) [Ratio] 12.1 % 11.6-14.6 [facility] Immature granulocytes/100 WBC (Bld) 0.500 % 0.0-0.9 [facility] Comment on above: IG% - Immature Granu locytes (promyelocytes, myelocytes and metamyelocytes) > 1% indicates that a LEFT SHIFT is Present. MCH (RBC) [Entitic mass] 29.3 pg 27.0-32.0 [facility] Nucleated RBC/100 WBC (Bld) [Ratio] 0 % 0-5 [facility] MCHC Auto (RBC) [Mass/Vol]Or dered By: Thea Ene on 10-22-2022 MCHC (RBC) [Mass/Vol] 33.7 g/dL 32-36 [facility] Mucus LM Ql (Urine sed)Order ed By: Rem Ene on 10-22-2022 Mucus Ql (Urine sed) 1+ /hpf [facility] Nitrite Test strip Ql (U)Ord ered By: Remus Ibarraradha on 10-22-2022 Nitrite Ql (U) Negative Negative [facility] No Panel InformationOrdered By: Thea Ene on 10-22-2022 Estimated Creatinine Clearance Calc 66.39 ml/min [facility] Estimated GFR (MDRD) Amer 88 mL/min >60 [facility] Comment on above: GFR Calc Estimated GFR (MDRD) Non-Af Amer 73 mL/min >60 [facility] Comment on above: Non- GFR Calc Platelets bldOrdered By: Tanya bah Ene on 10-22-2022 Platelets (Bld) [#/Vol] 418 10*3/uL 150-450 [facility] Protein Test strip Ql (U)Ord ered By: Thea Ibarraradha on 10-22-2022 Protein Ql (U) 100 mg/dl Negative [facility] Serum or plasma calcium noa urement (mass/volume)Ordered By: Rem Ene on 10-22-2022 Calcium [Mass/Vol] 9.6 mg/dL 8.5-10.1 [facility] Serum or plasma creatinine m easurement (mass/volume)Ordered By: Rem Ene on 10-22-2022 Creatinine [Mass/Vol] 1.02 mg/dL 0.55-1.02 [facility] Comment on above: The validity of the calculated GFR & GFRAA in patients over 70 years has not been determined. Clinical correlation is essential. Serum or plasma urea nitroge n measurement (mass/volume)Ordered By: Thea Ene on 10-22-2022 Urea nitrogen [Mass/Vol] 12 mg/dL 7-18 [facility] Squamous epithelial cells de tection in urine sediment by light microscopyOrdered By: hTea Luque on 10-22-2022 Epithelial cells.squamous LM Ql (Urine sed) 0-5 SEEN /hpf 5-10 [facility] Thin prep Papanicolaou smear with manual screeningOrdered By: Remus Luque on 10-22-2022 Thin prep Papanicolaou smear with manual screening 9 5-15 [facility] Urine blood detectionOrdered By: Remus Luque on 10-22-2022 RBC Ql (U) 250 /ul Negative [facility] RBC Ql (U) 10-25 SEEN /hpf 0-5 [facility] Urine clarityOrdered By: Rem us Ene on 10-22-2022 Clarity (U) Cloudy Clear [facility] Urine color determinationOrd ered By: Thea Luque on 10-22-2022 Color (U) Brown Yellow [facility] Urine glucose detectionOrder ed By: Thea Luque on 10-22-2022 Glucose Ql (U) Normal mg/dl Normal [facility] Urine leukocyte esterase det ection by dipstickOrdered By: Thea Luque on 10-22-2022 Leukocyte esterase Test strip Ql (U) 100 /ul Negative [facility] Urine pHOrdered By: Thea bowlingr on 10-22-2022 pH (U) 7.0 [pH] 5.0 - 8.0 [facility] Urine sediment bacteria coun t by microscopy (number/high power field)Ordered By: Thea Luque on 10-22-2022 Bacteria LM.HPF (Urine sed) [#/Area] 2 /[HPF] None Seen [facility] Urine specific gravity measu rementOrdered By: Thea Luque on 10-22-2022 Specific gravity (U) [Rel density] 1.015 1.002-1.030 [facility] Urobilinogen Auto test strip Ql (U)Ordered By: Remus Luque on 10-22-2022 Urobilinogen Ql (U) 12 mg/dl Normal [facility] Progress Noteon 07-26-2022 Javascript Ui Developer Authentication Interface Message Text We had the pleasure of seeing Gregg Zuniga in the [facility] on July 26, 2022. As you know, [...] history Gregg lives with her family in [place], [place]. Physical exam showed: Weight - Scale: [...] complexes and a ventricular rate of 108, NM interval of 172 msec, QRS duration of [...] [facility] We will plan to see Gregg in follow-up in 2 months for repeat evaluation and medication titration as needed. Total encounter time was 30 minutes, which includes chart review, counseling, documentation and/or coordination of care. Normal [facility] - Microbiology an d Antimicrobial susceptibilityon 03-16-2022 SARS-CoV-2 (COVID-19) RNA RICHARD+probe Ql (Unsp spec) Not detected [facility] No Panel Informationon 03-16 Influenza Types A,B Rapid (Clinic) Not detected [facility] Vital Signs Date Time Vital Sign Value Performing Clinician Facility 08-22-2024 08:25-0400 Body mass index (BMI) [Ratio] 32.01 kg/m2 Georgia Lino MD Work Phone: [facility] 08-22-2024 08:25-0400 Body weight 76.84 kg Georgia Lino MD Work Phone: [facility] 08-22-2024 08:25-0400 Diastolic blood pressure 84 mm[Hg] Georgia Lino MD Work Phone: [facility] 08-22-2024 08:25-0400 Systolic blood pressure 124 mm[Hg] Georgia Lino MD Work Phone: [facility] 08-19-2024 14:52-0400 Body mass index (BMI) [Ratio] 32.12 kg/m2 Georgia Lino MD Work Phone: [facility] 08-19-2024 14:52-0400 Body weight 77.11 kg Georgia Lino MD Work Phone: [facility] 08-19-2024 14:52-0400 Diastolic blood pressure 70 mm[Hg] Georgia Lino MD Work Phone: [facility] 08-19-2024 14:52-0400 Systolic blood pressure 126 mm[Hg] Georgia Lino MD Work Phone: [facility] 08-11-2024 10:14-0400 Body mass index (BMI) [Ratio] 32.12 kg/m2 Aminah Ramsey MD Work Phone: [facility] 08-11-2024 10:14-0400 Body weight 77.11 kg Aminah Ramsey MD Work Phone: [facility] 08-11-2024 10:14-0400 Diastolic blood pressure 76 mm[Hg] Aminah Ramsey MD Work Phone: [facility] 08-11-2024 10:14-0400 Systolic blood pressure 122 mm[Hg] Aminah Ramsey MD Work Phone: [facility] 08-07-2024 22:15-0400 Diastolic blood pressure 80 mm[Hg] No Primary Care Physician [facility] 08-07-2024 22:15-0400 Heart rate 67 /min No Primary Care Physician [facility] 08-07-2024 22:15-0400 SaO2% (BldA) [Mass fraction] 97 % No Primary Care Physician [facility] 08-07-2024 22:15-0400 Systolic blood pressure 122 mm[Hg] No Primary Care Physician [facility] 08-07-2024 20:39-0400 Respiratory rate 16 /min No Primary Care Physician [facility] 08-07-2024 19:45-0400 Body temperature 98.8 [degF] No Primary Care Physician [facility] 08-07-2024 16:50-0400 Body height 154.94 cm No Primary Care Physician [facility] 08-07-2024 16:50-0400 Body mass index (BMI) [Ratio] 31.1 kg/m2 No Primary Care Physician [facility] 08-07-2024 16:50-0400 Body weight 74.84 kg No Primary Care Physician [facility] 07-29-2024 10:29-0400 Body mass index (BMI) [Ratio] 31.29 kg/m2 Georgia Lino MD Work Phone: [facility] 07-29-2024 10:29-0400 Body weight 75.12 kg Georgia Lino MD Work Phone: [facility] 07-29-2024 10:29-0400 Diastolic blood pressure 62 mm[Hg] Georgia Lino MD Work Phone: [facility] 07-29-2024 10:29-0400 Systolic blood pressure 120 mm[Hg] Georgia Lino MD Work Phone: [facility] 07-15-2024 10:10-0400 Heart rate 95 /min No Primary Care Physician [facility] 07-15-2024 10:10-0400 SaO2% (BldA) [Mass fraction] 98 % No Primary Care Physician [facility] 07-15-2024 09:04-0400 Body temperature 97 [degF] No Primary Care Physician [facility] 07-15-2024 09:04-0400 Diastolic blood pressure 76 mm[Hg] No Primary Care Physician [facility] 07-15-2024 09:04-0400 Systolic blood pressure 124 mm[Hg] No Primary Care Physician [facility] 07-15-2024 09:02-0400 Body height 156.21 cm No Primary Care Physician [facility] 07-15-2024 09:02-0400 Body mass index (BMI) [Ratio] 30 kg/m2 No Primary Care Physician [facility] 07-15-2024 09:02-0400 Body weight 73.4 kg No Primary Care Physician [facility] 07-14-2024 15:15-0400 Heart rate 95 /min No Primary Care Physician [facility] 07-14-2024 15:15-0400 SaO2% (BldA) [Mass fraction] 98 % No Primary Care Physician [facility] 07-14-2024 14:44-0400 Diastolic blood pressure 84 mm[Hg] No Primary Care Physician [facility] 07-14-2024 14:44-0400 Systolic blood pressure 129 mm[Hg] No Primary Care Physician [facility] 07-14-2024 14:32-0400 Body height 156.21 cm No Primary Care Physician [facility] 07-14-2024 14:32-0400 Body mass index (BMI) [Ratio] 29.9 kg/m2 No Primary Care Physician [facility] 07-14-2024 14:32-0400 Body weight 73.2 kg No Primary Care Physician [facility] 07-14-2024 12:57-0400 Body mass index (BMI) [Ratio] 29.59 kg/m2 Nena Méndez APRN.CNM Work Phone: [facility] 07-14-2024 12:57-0400 Body weight 72.21 kg Nena Méndez APRN.CNM Work Phone: [facility] 07-14-2024 12:57-0400 Diastolic blood pressure 70 mm[Hg] Nena Méndez APRN.CNM Work Phone: [facility] 07-14-2024 12:57-0400 Systolic blood pressure 110 mm[Hg] Nena Méndez APRN.CNM Work Phone: [facility] 07-11-2024 14:57-0400 Body mass index (BMI) [Ratio] 29.56 kg/m2 Shara Martinez MD Work Phone: [facility] 07-11-2024 14:57-0400 Body weight 72.12 kg Shara Martinez MD Work Phone: [facility] 07-11-2024 14:57-0400 Diastolic blood pressure 64 mm[Hg] Shara Martinez MD Work Phone: [facility] 07-11-2024 14:57-0400 Systolic blood pressure 118 mm[Hg] Shara Martinez MD Work Phone: [facility] 07-07-2024 16:07-0400 Body mass index (BMI) [Ratio] 29.74 kg/m2 Georgia Lino MD Work Phone: [facility] 07-07-2024 16:07-0400 Body weight 72.58 kg Georgia Lino MD Work Phone: [facility] 07-07-2024 16:07-0400 Diastolic blood pressure 80 mm[Hg] Georgia Lino MD Work Phone: [facility] 07-07-2024 16:07-0400 Systolic blood pressure 122 mm[Hg] Georgia Lion MD Work Phone: [facility] 06-16-2024 10:25-0400 Diastolic blood pressure 64 mm[Hg] No Primary Care Physician [facility] 06-16-2024 10:25-0400 Heart rate 96 /min No Primary Care Physician [facility] 06-16-2024 10:25-0400 SaO2% (BldA) [Mass fraction] 100 % No Primary Care Physician [facility] 06-16-2024 10:25-0400 Systolic blood pressure 117 mm[Hg] No Primary Care Physician [facility] 06-16-2024 00:39-0400 Body height 154.94 cm No Primary Care Physician [facility] 06-16-2024 00:39-0400 Body mass index (BMI) [Ratio] 29.8 kg/m2 No Primary Care Physician [facility] 06-16-2024 00:39-0400 Body weight 71.66 kg No Primary Care Physician [facility] 06-15-2024 23:26-0400 Diastolic blood pressure 86 mm[Hg] No Primary Care Physician [facility] 06-15-2024 23:26-0400 Heart rate 107 /min No Primary Care Physician [facility] 06-15-2024 23:26-0400 Systolic blood pressure 128 mm[Hg] No Primary Care Physician [facility] 06-15-2024 23:25-0400 Body temperature 99.9 [degF] No Primary Care Physician [facility] 06-15-2024 23:25-0400 Respiratory rate 16 /min No Primary Care Physician [facility] 06-15-2024 23:25-0400 SaO2% (BldA) [Mass fraction] 97 % No Primary Care Physician [facility] 06-15-2024 22:53-0400 Body temperature 98 [degF] No Primary Care Physician [facility] 06-15-2024 22:53-0400 Diastolic blood pressure 83 mm[Hg] No Primary Care Physician [facility] 06-15-2024 22:53-0400 Heart rate 100 /min No Primary Care Physician [facility] 06-15-2024 22:53-0400 Respiratory rate 18 /min No Primary Care Physician [facility] 06-15-2024 22:53-0400 SaO2% (BldA) [Mass fraction] 99 % No Primary Care Physician [facility] 06-15-2024 22:53-0400 Systolic blood pressure 123 mm[Hg] No Primary Care Physician [facility] 06-15-2024 19:56-0400 Body height 154.94 cm No Primary Care Physician [facility] 06-15-2024 19:56-0400 Body mass index (BMI) [Ratio] 30 kg/m2 No Primary Care Physician [facility] 06-15-2024 19:56-0400 Body weight 72.12 kg No Primary Care Physician [facility] 06-13-2024 13:23-0400 Body mass index (BMI) [Ratio] 29.52 kg/m2 Milly Singh MD Work Phone: [facility] 06-13-2024 13:23-0400 Body weight 72.03 kg Milly Singh MD Work Phone: [facility] 06-13-2024 13:23-0400 Diastolic blood pressure 76 mm[Hg] Milly Singh MD Work Phone: [facility] 06-13-2024 13:23-0400 Systolic blood pressure 120 mm[Hg] Milly Singh MD Work Phone: [facility] 06-04-2024 16:35-0400 Body mass index (BMI) [Ratio] 29 kg/m2 Nena Plotts SOFTWARE PACKAGING ENGINEER.CNM Work Phone: [facility] 06-04-2024 16:35-0400 Body weight 70.76 kg Nena Plotts SOFTWARE PACKAGING ENGINEER.CNM Work Phone: [facility] 06-04-2024 16:35-0400 Diastolic blood pressure 70 mm[Hg] Nena Plotts SOFTWARE PACKAGING ENGINEER.CNM Work Phone: [facility] 06-04-2024 16:35-0400 Systolic blood pressure 108 mm[Hg] Nena Plotts SOFTWARE PACKAGING ENGINEER.CNM Work Phone: [facility] 05-08-2024 09:54-0500 Body mass index (BMI) [Ratio] 27.51 kg/m2 Georgia Lino MD Work Phone: [facility] 05-08-2024 09:54-0500 Body weight 67.13 kg Georgia Lino MD Work Phone: [facility] 05-08-2024 09:54-0500 Diastolic blood pressure 62 mm[Hg] Georgia Lino MD Work Phone: [facility] 05-08-2024 09:54-0500 Systolic blood pressure 106 mm[Hg] Georgia Lino MD Work Phone: [facility] 05-02-2024 16:14-0500 Body mass index (BMI) [Ratio] 27.07 kg/m2 Milly Singh MD Work Phone: [facility] 05-02-2024 16:14-0500 Body weight 66.04 kg Milly Singh MD Work Phone: [facility] 05-02-2024 16:14-0500 Diastolic blood pressure 62 mm[Hg] Milly Singh MD Work Phone: [facility] 05-02-2024 16:14-0500 Systolic blood pressure 112 mm[Hg] Milly Singh MD Work Phone: [facility] 04-14-2024 10:19-0500 Body mass index (BMI) [Ratio] 25.84 kg/m2 Martha Santamaria SOFTWARE PACKAGING ENGINEER.CNM Work Phone: [facility] 04-14-2024 10:19-0500 Body weight 63.05 kg Martha Santamaria SOFTWARE PACKAGING ENGINEER.CNM Work Phone: [facility] 04-14-2024 10:19-0500 Diastolic blood pressure 70 mm[Hg] Martha Santamaria SOFTWARE PACKAGING ENGINEER.CNM Work Phone: [facility] 04-14-2024 10:19-0500 Systolic blood pressure 102 mm[Hg] Martha Santamaria SOFTWARE PACKAGING ENGINEER.CNM Work Phone: [facility] 04-08-2024 08:59-0500 Body mass index (BMI) [Ratio] 25.69 kg/m2 Yobany Romero MD Work Phone: [facility] 04-08-2024 08:59-0500 Body weight 62.69 kg Yobany Romero MD Work Phone: [facility] 04-08-2024 08:59-0500 Diastolic blood pressure 70 mm[Hg] Yobany Romero MD Work Phone: [facility] 04-08-2024 08:59-0500 Systolic blood pressure 106 mm[Hg] Yobany Romero MD Work Phone: [facility] 03-28-2024 09:35-0500 Body height 156.2 cm Jay Byrd MD Work Phone: [facility] 03-28-2024 09:35-0500 Body mass index (BMI) [Ratio] 24.7 kg/m2 Jay Byrd MD Work Phone: [facility] 03-28-2024 09:35-0500 Body weight 60.28 kg Jay Byrd MD Work Phone: [facility] 03-28-2024 09:35-0500 Diastolic blood pressure 71 mm[Hg] Jay Byrd MD Work Phone: [facility] 03-28-2024 09:35-0500 Heart rate 79 /min Jay Byrd MD Work Phone: [facility] 03-28-2024 09:35-0500 Systolic blood pressure 114 mm[Hg] Jay Byrd MD Work Phone: [facility] 03-24-2024 21:00-0500 Diastolic blood pressure 65 mm[Hg] No Primary Care Physician [facility] 03-24-2024 21:00-0500 Heart rate 66 /min No Primary Care Physician [facility] 03-24-2024 21:00-0500 Respiratory rate 16 /min No Primary Care Physician [facility] 03-24-2024 21:00-0500 SaO2% (BldA) [Mass fraction] 98 % No Primary Care Physician [facility] 03-24-2024 21:00-0500 Systolic blood pressure 124 mm[Hg] No Primary Care Physician [facility] 03-24-2024 17:41-0500 Body mass index (BMI) [Ratio] 25.9 kg/m2 No Primary Care Physician [facility] 03-24-2024 17:41-0500 Body temperature 97.7 [degF] No Primary Care Physician [facility] 03-24-2024 17:41-0500 Body weight 62.14 kg No Primary Care Physician [facility] 03-18-2024 13:28-0500 Body mass index (BMI) [Ratio] 26.02 kg/m2 Cony Cardona APRN.BUILDING OPERATOR Work Phone: [facility] 03-18-2024 13:28-0500 Body temperature 98.29 [degF] Cony Cardona APRN.BUILDING OPERATOR Work Phone: [facility] 03-18-2024 13:28-0500 Body weight 63.5 kg Cony Ball SOFTWARE PACKAGING ENGINEER.BUILDING OPERATOR Work Phone: [facility] 03-18-2024 13:28-0500 Diastolic blood pressure 83 mm[Hg] Cony Cardona SOFTWARE PACKAGING ENGINEER.BUILDING OPERATOR Work Phone: [facility] 03-18-2024 13:28-0500 Heart rate 84 /min Conybraden Cardona SOFTWARE PACKAGING ENGINEER.BUILDING OPERATOR Work Phone: [facility] 03-18-2024 13:28-0500 Respiratory rate 18 /min Conybraden Cardona SOFTWARE PACKAGING ENGINEER.BUILDING OPERATOR Work Phone: [facility] 03-18-2024 13:28-0500 SaO2% (BldA) [Mass fraction] 98 % Conybraden Cardona SOFTWARE PACKAGING ENGINEER.BUILDING OPERATOR Work Phone: [facility] 03-18-2024 13:28-0500 Systolic blood pressure 121 mm[Hg] Conybraden Cardona SOFTWARE PACKAGING ENGINEER.BUILDING OPERATOR Work Phone: [facility] 03-17-2024 08:28-0500 Body mass index (BMI) [Ratio] 26.25 kg/m2 Milly Singh MD Work Phone: [facility] 03-17-2024 08:28-0500 Body weight 64.05 kg Milly Singh MD Work Phone: [facility] 03-17-2024 08:28-0500 Diastolic blood pressure 64 mm[Hg] Milly Singh MD Work Phone: [facility] 03-17-2024 08:28-0500 Systolic blood pressure 110 mm[Hg] Milly Singh MD Work Phone: [facility] 03-06-2024 13:05-0500 Body mass index (BMI) [Ratio] 26.1 kg/m2 Georgia Lino MD Work Phone: [facility] 03-06-2024 13:05-0500 Body weight 63.69 kg Georgia Lino MD Work Phone: [facility] 03-06-2024 13:05-0500 Diastolic blood pressure 78 mm[Hg] Georgia Lino MD Work Phone: [facility] 03-06-2024 13:05-0500 Systolic blood pressure 110 mm[Hg] Georgia Lino MD Work Phone: [facility] 02-18-2024 08:30-0500 Body mass index (BMI) [Ratio] 25.47 kg/m2 Martha Santamaria SOFTWARE PACKAGING ENGINEER.CNM Work Phone: [facility] 02-18-2024 08:30-0500 Body weight 62.14 kg Martha Santamaria SOFTWARE PACKAGING ENGINEER.CNM Work Phone: [facility] 02-18-2024 08:30-0500 Diastolic blood pressure 74 mm[Hg] Martha Santamaria SOFTWARE PACKAGING ENGINEER.CNM Work Phone: [facility] 02-18-2024 08:30-0500 Systolic blood pressure 116 mm[Hg] Martha Santamaria SOFTWARE PACKAGING ENGINEER.CNM Work Phone: [facility] 01-14-2024 08:23-0500 Body mass index (BMI) [Ratio] 25.76 kg/m2 Angie Loraine SOFTWARE PACKAGING ENGINEER.BUILDING OPERATOR Work Phone: [facility] 01-14-2024 08:23-0500 Body weight 62.87 kg Angie Ninfa SOFTWARE PACKAGING ENGINEER.BUILDING OPERATOR Work Phone: [facility] 01-14-2024 08:23-0500 Diastolic blood pressure 74 mm[Hg] Angie Loraine SOFTWARE PACKAGING ENGINEER.BUILDING OPERATOR Work Phone: [facility] 01-14-2024 08:23-0500 Respiratory rate 16 /min Angie Loraine SOFTWARE PACKAGING ENGINEER.BUILDING OPERATOR Work Phone: [facility] 01-14-2024 08:23-0500 Systolic blood pressure 126 mm[Hg] Angie Loraine SOFTWARE PACKAGING ENGINEER.BUILDING OPERATOR Work Phone: [facility] 12-24-2023 08:32-0400 Body height 156.2 cm Jay Byrd MD Work Phone: [facility] 12-24-2023 08:32-0400 Body mass index (BMI) [Ratio] 25.41 kg/m2 Jay Byrd MD Work Phone: [facility] 12-24-2023 08:32-0400 Body weight 62.01 kg Jay Byrd MD Work Phone: [facility] 12-24-2023 08:32-0400 Diastolic blood pressure 84 mm[Hg] Jay Byrd MD Work Phone: [facility] 12-24-2023 08:32-0400 Heart rate 99 /min Jay Byrd MD Work Phone: [facility] 12-24-2023 08:32-0400 Systolic blood pressure 134 mm[Hg] Jay Byrd MD Work Phone: [facility] 07-06-2023 11:32-0400 Body temperature 97.6 [degF] Dr. Kayleen Mckay Work Phone: [facility] 07-06-2023 11:32-0400 Diastolic blood pressure 78 mm[Hg] Dr. Kayleen Mckay Work Phone: 9(222)[phone] [place] [address] 07-06-2023 11:32-0400 Heart rate 64 /min Dr. Kayleen Mckay Work Phone: 7(128)416-229202 [place] [address] 07-06-2023 11:32-0400 Respiratory rate 18 /min Dr. Kayleen Mckay Work Phone: 8(532)[phone] [place] [address] 07-06-2023 11:32-0400 SaO2% (BldA) [Mass fraction] 99 % Dr. Kayleen Mckay Work Phone: [facility] 07-06-2023 11:32-0400 Systolic blood pressure 118 mm[Hg] Dr. Kayleen Mckay Work Phone: [facility] 07-06-2023 10:32-0400 Body height 154.[address] Kayleen Mckay Work Phone: [facility] 07-06-2023 10:32-0400 Body mass index (BMI) [Ratio] 25.8 kg/m2 Dr. Kayleen Mckay Work Phone: [facility] 07-06-2023 10:32-0400 Body weight [address] Kayleen Mckay Work Phone: [facility] 06-19-2023 12:18-0400 Body temperature 98.3 [degF] Dr. Kayleen Mckay Work Phone: [facility] 06-19-2023 12:18-0400 Diastolic blood pressure 70 mm[Hg] Dr. Kayleen Mckay Work Phone: [facility] 06-19-2023 12:18-0400 Heart rate 86 /min Dr. Kayleen Mckay Work Phone: [facility] 06-19-2023 12:18-0400 Respiratory rate 12 /min Dr. Kayleen Mckay Work Phone: [facility] 06-19-2023 12:18-0400 SaO2% (BldA) [Mass fraction] 99 % Dr. Kayleen Mckay Work Phone: [facility] 06-19-2023 12:18-0400 Systolic blood pressure 116 mm[Hg] Dr. Kayleen Mckay Work Phone: [facility] 04-14-2023 12:52-0500 Body temperature 98.4 [degF] Michelet Barreto MD Work Phone: [facility] 04-14-2023 12:52-0500 Body weight 64.86 kg Michelet Barreto MD Work Phone: [facility] 04-14-2023 12:52-0500 Diastolic blood pressure 87 mm[Hg] Michelet Barreto MD Work Phone: [facility] 04-14-2023 12:52-0500 Heart rate 88 /min Michelet Barreto MD Work Phone: [facility] 04-14-2023 12:52-0500 Respiratory rate 18 /min Michelet Barreto MD Work Phone: [facility] 04-14-2023 12:52-0500 SaO2% (BldA) [Mass fraction] 99 % Michelet Barreto MD Work Phone: [facility] 02-10-2024 12:52-0500 Systolic blood pressure 138 mm[Hg] Michelet Barreto MD Work Phone: [facility] 10-22-2022 20:18-0400 Diastolic blood pressure 65 mm[Hg] Dr. Kayleen Mckay Work Phone: 9(497)652-037602 [place] [address] 10-22-2022 20:18-0400 Heart rate 72 /min Dr. Kayleen Mckay Work Phone: 6(314)229-850302 [place] [address] 10-22-2022 20:18-0400 Respiratory rate 18 /min Dr. Kayleen Mckay Work Phone: 5(042)662-860402 [place] [address] 10-22-2022 20:18-0400 SaO2% (BldA) [Mass fraction] 100 % Dr. Kayleen Mckay Work Phone: 4(268)209-751353 [address] 10-22-2022 20:18-0400 Systolic blood pressure 116 mm[Hg] Dr. Kayleen Mckay Work Phone: 0(840)426-417253 [address] 10-22-2022 17:39-0400 Body height 154.[address] Kayleen Mckay Work Phone: 1(988)918-048753 [address] 10-22-2022 17:39-0400 Body mass index (BMI) [Ratio] 27.6 kg/m2 Dr. Kayleen Mckay Work Phone: 4(637)914-007609 [place] [address] 10-22-2022 17:39-0400 Body temperature 98.6 [degF] Dr. Kayleen Mckay Work Phone: 2(597)407-680702 [place] [address] 10-22-2022 17:39-0400 Body weight 66.[address] Kayleen Mckay Work Phone: 2(602)255-330502 [place] [address] 09-14-2022 12:18-0400 Diastolic blood pressure 64 mm[Hg] Dr. Kayleen Mckay Work Phone: 2(795)725-375209 [place] [address] 09-14-2022 12:18-0400 Systolic blood pressure 128 mm[Hg] Dr. Kayleen Mckay Work Phone: 5(081)582-754853 [address] 09-14-2022 12:16-0400 Body temperature 98 [degF] Dr. Kayleen Mckay Work Phone: 0(216)580-098353 [address] 09-14-2022 12:16-0400 Heart rate 100 /min Dr. Kayleen Mckay Work Phone: 6(216)931-178902 [place] [address] 09-14-2022 12:16-0400 Respiratory rate 12 /min Dr. Kayleen Mckay Work Phone: 2(668)408-698402 [place] [address] 09-14-2022 12:16-0400 SaO2% (BldA) [Mass fraction] 98 % Dr. Kayleen Mckay Work Phone: 0(684)922-212902 [place] [address] 03-19-2022 10:15-0500 Body temperature 97.5 [degF] Dr. Kayleen Mckay Work Phone: 6(467)505-656802 [place] [address] 03-19-2022 10:15-0500 Diastolic blood pressure 70 mm[Hg] Dr. Kayleen Mckay Work Phone: 4(818)458-365353 [address] 03-19-2022 10:15-0500 Heart rate 109 /min Dr. Kayleen Mckay Work Phone: 5(706)975-648402 [place] [address] 03-19-2022 10:15-0500 Respiratory rate 15 /min Dr. Kayleen Mckay Work Phone: 3(901)454-454402 [place]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 [address] Ob OB/Gynecology Comment on above: Ob Start: 07-08-2024 End: 07-08-2024 Patient encounter procedure 07/08/2024 9:00 AM EDT Appointment OB/Gynecology [address] [place] [id number] [place] [address] [place] [address] [facility] phone consult OB/Gynecology Comment on above: [facility] phone consult Start: 06-27-2024 End: 06-27-2024 Patient encounter procedure 06/27/2024 2:30 PM EDT Routine Office Visit OB/Gynecology [address] [place] [address] Martha Santamaria APRN.[facility] [address] [place] [address] OB OB/Gynecology Comment on above: OB Start: 06-15-2024 [facility] Start: 06-15-2024 [facility] Start: 06-15-2024 Iv infusion hydration initial 31 min-1 hour HYDRATION IV INFUSION INIT [facility] Start: 06-13-2024 End: 06-13-2024 Patient encounter procedure 06/13/2024 1:30 PM EDT Routine Office Visit OB/Gynecology [address] [place] [address] Milly Singh MD [address] [place] [address] OB Routine OB/Gynecology Comment on above: OB Routine Start: 06-13-2024 End: 06-13-2024 ambulatory 06/13/2024 1:15 PM EDT Results Only [facility] [address] [place] [address] Glucose test and LABs [facility] Comment on above: Glucose test and LABs Start: 05-13-2024 End: 05-13-2024 Patient encounter procedure 05/13/2024 1:30 PM EDT Routine Office Visit OB/Gynecology [address] [place] [address] Georgia Lino MD [address] [place] [address] OB Routine OB/Gynecology Comment on above: OB Routine Start: 05-08-2024 End: 08-07-2024 ANEMIA REFLEX PANEL ANEMIA REFLEX PANEL Lab Routine 23 weeks gestation of Encounter for supervision of normal first in second trimester PVC's (premature ventricular contractions) Depression with anxiety Rh negative state in antepartum period Expected: 05/08/2024, Expires: 08/07/2024 [facility] Comment on above: Expected: 05/08/2024, Expires: Start: 05-08-2024 End: 05-08-2025 GESTATIONAL GLUCOSE SCREEN, 1-HOUR, 50 GRAM, NON-FASTING GESTATIONAL GLUCOSE SCREEN, 1-HOUR, 50 GRAM, NON-FASTING Lab Routine Screening for diabetes mellitus 23 weeks gestation of Encounter for supervision of normal first in second trimester PVC's (premature ventricular contractions) Depression with anxiety Rh negative state in antepartum period Expected: 05/08/2024, Expires: 05/08/2025 [facility] Work Phone: Comment on above: Expected: 05/08/2024, Expires: Start: 05-08-2024 End: 05-08-2025 SYPHILIS TREPONEMAL W/REFLEX SYPHILIS TREPONEMAL W/REFLEX Lab Routine 23 weeks gestation of Encounter for supervision of normal first in second trimester PVC's (premature ventricular contractions) Depression with anxiety Rh negative state in antepartum period Expected: 05/08/2024, Expires: 05/08/2025 [facility] Comment on above: Expected: 05/08/2024, Expires: Start: 05-08-2024 End: 08-07-2024 TYPE + SCREEN TYPE + SCREEN Blood Bank Routine 23 weeks gestation of Encounter for supervision of normal first in second trimester PVC's (premature ventricular contractions) Depression with anxiety Rh negative state in antepartum period Expected: 05/08/2024, Expires: 08/07/2024 [facility] Comment on above: Expected: 05/08/2024, Expires: Start: 05-08-2024 End: 05-08-2024 Patient encounter procedure 05/08/2024 10:10 AM EST Routine Office Visit OB/Gynecology [address] [place], [place] [address] Georgia Lino MD [address] [place], [place] [address] OB Routine OB/Gynecology Comment on above: OB Routine Start: 04-14-2024 End: 04-14-2024 Patient encounter procedure [facility] Comment on above: Anatomy OB Start: 04-08-2024 End: 04-08-2024 Patient encounter procedure 04/08/2024 9:00 AM EST Routine Office Visit OB/Gynecology [address] [place], [place] [id number] Yobany Romero MD [address] [place], [place] [id number] OB-N/V OB/Gynecology Comment on above: OB-N/V Start: 03-28-2024 End: 03-28-2024 Patient encounter procedure 03/28/2024 9:15 AM EST Office Visit Cardiology [address] [id number] Jay Byrd MD [address] [facility] [address] [place] [address] 3 MONTH FOLLOW UP Cardiology Comment on above: 3 MONTH FOLLOW UP Start: 03-28-2024 End: 03-28-2024 Follow-up encounter 03/28/2024 8:45 AM EST Results Only Cardiology [address] [place] [address] 3 MONTH FOLLOW UP Cardiology Comment on above: 3 MONTH FOLLOW UP Start: 03-24-2024 [facility] Start: 03-24-2024 Enteric precautions [facility] Start: 03-17-2024 End: 03-17-2024 Patient encounter procedure 03/17/2024 8:30 AM EST Routine Office Visit OB/Gynecology [address] [place], [place] [id number] Milly Singh MD [address] [place] [id number] OB OB/Gynecology Comment on above: OB Start: 02-18-2024 End: 05-19-2024 Chromosome 21 trisomy [Presence] in Blood or Tissue by Cytogenetics [facility] Work Phone: Comment on above: Expected: 02/18/2024, Expires: Start: 02-18-2024 End: 02-17-2025 OBSTETRIC ULTRASOUND WHI OBSTETRIC ULTRASOUND WHI Anc Imaging Routine 12 weeks gestation of Encounter for supervision of normal first in second trimester Expected: 02/18/2024, Expires: 02/17/2025 [facility] Work Phone: Comment on above: Expected: 02/18/2024, Expires: Start: 02-18-2024 End: 02-18-2024 Patient encounter procedure 02/18/2024 10:20 AM EST Routine Office Visit OB/Gynecology [address] [place], [place] [id number] Shara Martinez MD [address] [place] [address] ob lmp 11/22 OB/Gynecology Comment on above: ob lmp 11/22 Start: 02-18-2024 End: 02-18-2024 Patient encounter procedure Maternal Fet al Medicine Comment on above: Nuchal Est New OB/lmp11/22 Start: 02-18-2024 End: 02-18-2024 ambulatory [facility] Comment on above: Lab Start: 01-14-2024 End: 04-14-2024 ANEMIA REFLEX PANEL ANEMIA REFLEX PANEL Lab Routine 7 weeks gestation of Expected: 01/14/2024, Expires: 04/14/2024 [facility] Work Phone: Comment on above: Expected: 01/14/2024, Expires: Start: 01-14-2024 End: 04-14-2024 Hemoglobin A1c in Blood HEMOGLOBIN A1C Lab Routine 7 weeks gestation of Expected: 01/14/2024, Expires: 04/14/2024 [facility] Comment on above: Expected: 01/14/2024, Expires: Start: 01-14-2024 End: 04-14-2024 Hepatitis B virus surface Ag [Presence] in Serum HEPATITIS B SURFACE ANTIGEN Lab Routine 7 weeks gestation of Expected: 01/14/2024, Expires: 04/14/2024 [facility] Comment on above: Expected: 01/14/2024, Expires: Start: 01-14-2024 End: 04-14-2024 Hepatitis C virus Ab [Presence] in Serum HEPATITIS C ANTIBODY IA WITH CONFIRMATION Lab Routine 7 weeks gestation of Expected: 01/14/2024, Expires: 04/14/2024 [facility] Comment on above: Expected: 01/14/2024, Expires: Start: 01-14-2024 End: 04-14-2024 HIV 1+2 Ab [Presence] in Serum or Plasma by Immunoassay HIV 1/2 COMBO WITH REFLEX TO DIFFERENTIATION Lab Routine 7 weeks gestation of Expected: 01/14/2024, Expires: 04/14/2024 [facility] Comment on above: Expected: 01/14/2024, Expires: Start: 01-14-2024 End: 01-13-2025 NUCHAL TRANSLUCENCY WHI NUCHAL TRANSLUCENCY WHI Anc Imaging Routine 7 weeks gestation of Expected: 01/14/2024, Expires: 01/13/2025 [facility] Comment on above: Expected: 01/14/2024, Expires: Start: 01-14-2024 End: 04-14-2024 RUBELLA IGG ANTIBODY RUBELLA IGG ANTIBODY Lab Routine 7 weeks gestation of Expected: 01/14/2024, Expires: 04/14/2024 [facility] Comment on above: Expected: 01/14/2024, Expires: Start: 01-14-2024 End: 04-14-2024 SYPHILIS TREPONEMAL W/REFLEX SYPHILIS TREPONEMAL W/REFLEX Lab Routine 7 weeks gestation of Expected: 01/14/2024, Expires: 04/14/2024 [facility] Comment on above: Expected: 01/14/2024, Expires: Start: 01-14-2024 End: 04-14-2024 TYPE + SCREEN TYPE + SCREEN Blood Bank Routine 7 weeks gestation of Expected: 01/14/2024, Expires: 04/14/2024 [facility] Comment on above: Expected: 01/14/2024, Expires: Start: 12-24-2023 End: 03-24-2024 CBC panel - Blood by Automated count COMPLETE BLOOD COUNT Lab Routine PVC (premature ventricular contraction) Tachycardia Expected: 12/24/2023, Expires: 03/24/2024 [facility] Comment on above: Expected: 12/24/2023, Expires: Start: 12-24-2023 End: 03-24-2024 Comprehensive metabolic 2000 panel - Serum or Plasma COMPREHENSIVE METABOLIC PANEL Lab Routine PVC (premature ventricular contraction) Tachycardia Expected: 12/24/2023, Expires: 03/24/2024 [facility] Comment on above: Expected: 12/24/2023, Expires: Start: 12-24-2023 End: 03-24-2024 Thyrotropin [Units/volume] in Serum or Plasma THYROID STIMULATING HORMONE Lab Routine PVC (premature ventricular contraction) Tachycardia Expected: 12/24/2023, Expires: 03/24/2024 [facility] Comment on above: Expected: 12/24/2023, Expires: Start: 12-24-2023 End: 03-24-2024 Thyroxine (T4) free [Mass/volume] in Serum or Plasma T4 FREE/FREE THYROXINE Lab Routine PVC (premature ventricular contraction) Tachycardia Expected: 12/24/2023, Expires: 03/24/2024 [facility] Comment on above: Expected: 12/24/2023, Expires: Start: 12-24-2023 End: 03-24-2024 Triiodothyronine (T3) Free [Mass/volume] in Serum or Plasma T3, FREE Lab Routine PVC (premature ventricular contraction) Tachycardia Expected: 12/24/2023, Expires: 03/24/2024 [facility] Work Phone: Comment on above: Expected: 12/24/2023, Expires: Start: 12-24-2023 End: 12-24-2023 ambulatory 12/24/2023 7:45 AM EDT Results Only Cardiology [address] [place] [address] PVCs Cardiology Comment on above: PVCs Start: 12-24-2023 End: 12-24-2023 Patient encounter procedure Cardiology Comment on above: [facility]ie [facility] Start: 11-04-2023 Covid-19 Vaccine () Covid-19 Vaccine () [facility] Start: 11-04-2023 Covid-19 Vaccine () Covid-19 Vaccine () [facility] Start: 11-04-2023 Influenza vaccination Influenza Vaccine (#1) [facility] Start: 07-06-2023 [facility] Start: 2023 Screening for malignant neoplasm of cervix Cervical Cancer Screening [facility] Start: 03-05-2023 Depression Assessment Depression Assessment [facility] Start: 11-03-2022 Influenza vaccination Influenza Vaccine (#1) [facility] Start: 12-07-2021 Patient referral [facility] Work Phone: Start: 2020 Anxiety Screening Anxiety Screening [facility] Start: 2020 Depression Screening Depression Screening [facility] Start: 2020 GC (Gonorrhea) Screening (18-24) GC (Gonorrhea) Screening (18-24) [facility] Start: 2020 Hepatitis C screening Hepatitis C Screening [facility] Start: 2020 HIV screening HIV Screening [facility] Start: 2020 Screening for Chlamydia trachomatis Chlamydia Screening (18-24) [facility] Start: 2018 Meningococcal B Vaccine (1 of 2 - Standard) Meningococcal B Vaccine (1 of 2 - Standard) [facility] Start: 2018 Meningococcal B Vaccine: Consider Based On Risk (1 of 2 - Patient Seeks Protection) Meningococcal B Vaccine: Consider Based On Risk (1 of 2 - Patient Seeks Protection) [facility] Start: 2017 HPV Vaccine (1 - 3-dose series) HPV Vaccine (1 - 3-dose series) [facility] Start: 2016 Peds To Adult Transition Annual Assessment Peds To Adult Transition Annual Assessment [facility] Start: 2014 Peds To Adult Transition Initial Discussion Peds To Adult Transition Initial Discussion [facility] Start: 2011 HPV Vaccine (1 - 2-dose series) HPV Vaccine (1 - 2-dose series) [facility] Start: 2002 Covid-19 Vaccine (#1) Covid-19 Vaccine (#1) [facility] Bacteria identified in Urine by Culture URINE CULTURE Microbiology Routine 7 weeks gestation of 01/14/2024 9:13 AM EST [facility] BACTERIAL VAGINOSIS NAAT BACTERI AL VAGINOSIS NAAT Lab Routine Vaginal discharge 07/14/2024 1:44 PM EDT [facility] IRENE/TRICHOMONAS NAAT IRENE /TRICHOMONAS NAAT Lab Routine Vaginal discharge 07/14/2024 1:44 PM EDT [facility] Chlamydia trachomatis+Neisseria gonorrhoeae DNA [Presence] in Unspecified specimen by RICHARD with probe detection GONORRHEA/CHLAMYDIA NAAT Lab Routine 7 weeks gestation of 01/14/2024 9:13 AM [facility] End: 11-12-2024 ECG COMPLETE ECG COMPLETE ECG Routine PVC's (premature ventricular contractions) 1 Occurrences starting 11/13/2023 until 11/12/2024 [facility] Work Phone: Comment on above: 1 Occurrences starting 11/13/2023 until 11/12/2024 End: 03-27-2025 ECG COMPLETE ECG COMPLETE ECG Routine EKG abnormalities 1 Occurrences starting 03/27/2024 until 03/27/2025 [facility] Work Phone: Comment on above: 1 Occurrences starting 03/27/2024 until 03/27/2025 Hemoglobin F [Presen ce] in Blood by [facility] OUTSIDE VENDOR CARDI AC OUTPATIENT EXTENDED RHYTHM RECORDING (WITHOUT TELEMETRY) OUTSIDE VENDOR CARDIAC OUTPATIENT EXTENDED RHYTHM RECORDING (WITHOUT TELEMETRY) Holter Routine PVC (premature ventricular contraction) Tachycardia Ordered: 12/24/2023 [facility] Comment on above: Ordered: 12/24/2023 PAP TEST PAP TEST Lab Sonam myles Screening for cervical cancer 7 weeks gestation of 01/14/2024 9:13 AM [facility] Patient Education [facility] Work Phone: Patient referral [facility] Work Phone: ROUTINE, GR OUP B STREPTOCOCCUS BY PCR ROUTINE, GROUP B STREPTOCOCCUS BY PCR Microbiology Routine Supervision of high risk in third trimester ([facility]) 37 weeks gestation of ([facility]) 08/11/2024 10:31 AM EDT [facility] UA DIP, URINE (POC) UA DIP, URIN E (POC) Lab Routine Low back pain during in third trimester ([facility]) Ordered: 07/14/2024 [facility] Work Phone: Comment on above: Ordered: 07/14/2024 Urine culture [facility] URINE OB DIP B/O URINE OB DIP B/ O Lab Routine Supervision of high risk in third trimester ([facility] [facility]) 37 weeks gestation of ([facility]) Ordered: 08/11/2024 [facility] Work Phone: Comment on above: Ordered: 08/11/2024 End: 05-13-2024 XR Shoulder - left 3 Views XR SHOULDER GENERAL 3V OR MORE AP/TRUE AP/OTHER LEFT Radiology Routine Acute pain of left shoulder 1 Occurrences starting 04/14/2023 until 05/13/2024 [facility] Work Phone: Comment on above: 1 Occurrences starting 04/14/2023 until 05/13/2024 Immunizations Immunization Date Immunization Notes Care Provider [facility] 06-13-2024 RHO(D) immune globul in- IV or IM Milly Singh MD Work Phone: [facility] 04-14-2024 influenza virus vacc ine, unspecified formulation Georgia Lino MD Work Phone: [facility] 08-15-2018 meningococcal polysaccharide (groups A, C, Y and W-135) diphtheria toxoid conjugate vaccine (MCV4P) Georgia Lino MD Work Phone: [facility] 07-23-2015 meningococcal oligosaccharide (groups A, C, Y and W-135) diphtheria toxoid conjugate vaccine (MCV4O) Georgia Lino MD Work Phone: [facility] 07-23-2015 tetanus toxoid, redu ayaka diphtheria toxoid, and acellular pertussis vaccine, adsorbed Dr. Kayleen Mckay Work Phone: [facility] 2007 diphtheria, tetanus toxoids and acellular pertussis vaccine, unspecified formulation Georgia Lino MD Work Phone: [facility] 2007 hepatitis A vaccine, pediatric/adolescent dosage, 2 dose schedule Georgia Lino MD Work Phone: [facility] 2007 measles, mumps and rubella virus vaccine Dr. Kayleen Mckay Work Phone: [facility] 2007 poliovirus vaccine, inactivated Georgia Lino MD Work Phone: [facility] [address] Kayleen Mckay Work Phone: [facility] 2006 hepatitis A vaccine, pediatric/adolescent dosage, 2 dose schedule Georgia Lino MD Work Phone: [facility] 04-28-2004 pneumococcal conjuga te vaccine, 7 valent Georgia Lino MD Work Phone: [facility] 07-30-2003 diphtheria, tetanus toxoids and acellular pertussis vaccine, unspecified formulation Georgia Lino MD Work Phone: [facility] 07-30-2003 poliovirus vaccine, inactivated Georgia Lino MD Work Phone: [facility] 07-30-[address] Kayleen Mckay Work Phone: [facility] 05-01-2003 haemophilus influenz ae type b conjugate and Hepatitis B vaccine Dr. Kayleen Mckay Work Phone: [facility] 05-01-2003 haemophilus influenz ae type b vaccine, PRP-T conjugate Georgia Lino MD Work Phone: [facility] 05-01-2003 hepatitis B vaccine, pediatric or pediatric/adolescent dosage Georgia Lino MD Work Phone: [facility] 05-01-2003 measles, mumps and rubella virus vaccine Dr. Kayleen Mckay Work Phone: [facility] 2002 diphtheria, tetanus toxoids and acellular pertussis vaccine, unspecified formulation Georgia Lino MD Work Phone: [facility] 2002 haemophilus influenz ae type b vaccine, PRP-T conjugate Georgia Lino MD Work Phone: [facility] 2002 pneumococcal conjuga te vaccine, 7 valent Georgia Lino MD Work Phone: [facility] 2002 diphtheria, tetanus toxoids and acellular pertussis vaccine, unspecified formulation Georgia Lino MD Work Phone: [facility] 2002 haemophilus influenz ae type b vaccine, PRP-T conjugate Georgia Lino MD Work Phone: [facility] 2002 pneumococcal conjuga te vaccine, 7 valent Georgia Lino MD Work Phone: [facility] 2002 poliovirus vaccine, inactivated Georgia Lino MD Work Phone: [facility] 2002 diphtheria, tetanus toxoids and acellular pertussis vaccine, unspecified formulation Georgia Lino MD Work Phone: [facility] 2002 haemophilus influenz ae type b vaccine, PRP-T conjugate Georgia Lino MD Work Phone: [facility] 2002 hepatitis B vaccine, pediatric or pediatric/adolescent dosage Dr. Kayleen Mckay Work Phone: [facility] 2002 pneumococcal conjuga te vaccine, 7 valent Georgia Lino MD Work Phone: [facility] 2002 poliovirus vaccine, inactivated Georgia Lino MD Work Phone: [facility] 2002 hepatitis B vaccine, pediatric or pediatric/adolescent dosage Dr. Kayleen Mckay Work Phone: [facility] Payers Date Payer Category Payer Private Health Insurance [id number] 2023 Self-pay [id number] 2023 Private Health Insurance [id number] 2023 Private Health Insurance [id number] 2002 Unknown [id number] 79 2002 Unknown [id number] 79 2002 Unknown [id number] 79 Private Health Insurance [facility] [id number] Private Health Insurance [id number] Unknown [id number] Unknown [id number] 62 Unknown [id number] 62 Unknown [id number] 62 Unknown [id number] 62 Unknown [id number] 62 Unknown [id number] 62 Unknown [id number] 62 Unknown [id number] 62 Unknown [id number] 62 Unknown [id number] 62 Unknown [id number] 62 Unknown [id number] 62 Social History Date Type Detail Facility Start: 05-25-2021 End: 07-06-2023 Tobacco smoking status NHIS Unknown if ever smoked [facility] Start: 07-12-2020 Non-smoker [facility] Start: 2002 Sex Assigned At Female [facility] Start: 04-13-2011 End: 06-15-2024 Tobacco smoking status NHIS Never smoked tobacco [facility] Work Phone: Start: 04-13-2011 Tobacco use and exposure Smokeless tobacco non-user [facility] Work Phone: Start: 04-14-2023 Alcohol intake Not Asked [facility] Start: 04-14-2023 End: 12-24-2023 History of Social function [facility] Start: 04-14-2023 End: 12-24-2023 Tobacco use panel [facility] National Score (1-100), lower number is lower risk Not on file [facility] Start: 2002 Sex Assigned At Not on file [facility] Start: 12-24-2023 End: 08-22-2024 Alcoholic beverage intake Lifetime non-drinker (finding) [facility] Start: 12-07-2023 [facility] Start: 01-09-2024 Gender identity Identifies as female gender (finding) [facility] Start: 01-09-2024 Sexual orientation Heterosexual (negrita gutierrez) [facility] The thought of chyna nortno myself has occurred to me Never [facility] Start: 06-15-2024 End: 06-16-2024 Sex Female (finding) [facility] NEGATED: Highlighted row [facility] Goals Date Patient Goal Desired Activity /State Personal health goal Personal health goal Functional Status Date Assessment Result Facility 07-17-2024 Are you deaf, or do you have serious difficulty hearing No 07/17/2024 1:27 PM Ramona Suero RN [facility] 07-17-2024 Are you blind, or do you have serious difficulty seeing, even when wearing glasses No 07/17/2024 1:27 PM Ramona Suero RN No [facility] 07-17-2024 Do you have serious difficulty walking or climbing stairs No 07/17/2024 1:27 PM EDRamona Phillips RN No [facility] 07-17-2024 Do you have difficul ty dressing or bathing No 07/17/2024 1:27 PM Ramona Suero RN [facility] 07-17-2024 Because of a physica l, mental, or emotional condition, do you have difficulty doing errands alone such as visiting a physician's office or shopping No 07/17/2024 1:27 PM Ramona Suero RN [facility] Mental Status Date Assessment Result Facility 07-17-2024 Because of a physica l, mental, or emotional condition, do you have serious difficulty concentrating, remembering, or making decisions No 07/17/2024 1:27 PM Ramona Suero RN [facility] Clinical Notes 03-28-2023 to 08-22-2024 Quick Notes - Georgia Lino MD - 08/22/2024 8:52 AM EDTPrenatal Quick Notes - Georgia Lino MD - 08/22/2024 8:52 AM EDTPatient InstructionsPatient InstructionsPatient Instructions Note Date & Type Note Facility 08-22-2024 Progress note Formatting of t his note [...] Gen: No apparent distress Abd: Gravid, nontender SENSITIVE EXAMINATION CONSENT: The sensitive examination was discussed with the Patient or Patient's Authorized Instrumentation Designer. As applicable, any other physician, advance practice provider, medical student, or other health professional student that will be observing or involved in the sensitive examination for educational or training purposes was discussed with the Patient or Authorized Instrumentation Designer. The Patient or Authorized Instrumentation Designer has agreed to proceed with the sensitive examination. Desire elective induction. Reviewed risks and benefits of IOL and risk of failed induction ASSESSMENT/PLAN: 1. 39 weeks gestation of (HCC) - ICD9: V22.2, ICD10: Z3A.39 (primary diagnosis) - URINE OB DIP B/O 2. Supervision of high risk in third trimester (HCC) - ICD9: V23.9, ICD10: O09.93 - URINE OB DIP B/O Georgia Lino MD [facility] 08-22-2024 Miscellaneous Notes S: Gregg Zuniga is a 24 year old female who presents at 08/29/2024, by Last Menstrual Period for a routine visit. Denies headache, visual changes, chest pain, shortness of breath, vaginal bleeding, leakage of fluid, or dysuria. Feeling well, no complaints. Good movement, No contractions O: See flow sheet Gen: No apparent distress Abd: Gravid, nontender SENSITIVE EXAMINATION CONSENT: The sensitive examination was discussed with the Patient or Patient's Authorized Instrumentation Designer. As applicable, any other physician, advance practice provider, medical student, or other health professional student that will be observing or involved in the sensitive examination for educational or training purposes was discussed with the Patient or Authorized Instrumentation Designer. The Patient or Authorized Instrumentation Designer has agreed to proceed with the sensitive examination. Desire elective induction. Reviewed risks and benefits of IOL and risk of failed induction ASSESSMENT/PLAN: 1. 39 weeks gestation of (HCC) - ICD9: V22.2, ICD10: Z3A.39 (primary diagnosis) - URINE OB DIP B/O 2. Supervision of high risk in third trimester (HCC) - ICD9: V23.9, ICD10: O09.93 - URINE OB DIP B/O Georgia Lino MD documented in this encounter [facility] 08-22-2024 Instructions Minerva Gordon MA - 08/22/2024 8:24 AM EDT SEQUENTIAL SCREENINGS The [facility] offers sequential screenings for women who [...] It will require an appointment with our elevator technician. This is not an ultrasound performed [...] the above symptoms, contact our office at [phone] and ask to speak with a nurse. After hours, you can call doctors registry at [phone] OR call [facility] at [phone] and ask to have the doctor conductor sleeping car paged. If you consider this an emergency, dial 9-1-1 or go to your nearest emergency department. NEED HELP? Are you dealing with a violent or abusive relationship? Are you a victim of rape or sexual assult? Call [facility] ([facility] 24 hour Crisis Hotline: 490.928.1985 or 794-737-4383. MANUAL Your Guide to a Healthy manual is now on-line. Visit [email or web address] Caro to download your free copy documented in this encounter [facility] 08-19-2024 Telephone encounter Note I spoke w/ patient. Put her on at 850 am Albert w/ JG and if she isn't here yet I will see her and we can try to schedule induction. Shara Martinez MD [facility] Work Phone: 08-19-2024 Miscellaneous Notes I spoke w/ patient. Put her on at 850 am Sunday w/ JG and if she isn't here yet I will see her and we can try to schedule induction. Shara Martinez MD Was this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 with a violent or abusive relationship? Are you a victim of rape or sexual assult? Call [facility] ([place]) 24 hour Crisis Hotline: 709.597.5420 or 722-946-5737. MANUAL Your Guide to a Healthy manual is now on-line. Visit [email or web address] ancyGuide to download your free copy documented in this encounter [facility] 06-17-2024 Telephone encounter Note Pt notified and voiced understanding. Miki You RN [facility] 06-17-2024 Miscellaneous Notes Pt notified and [...] of range. Please advise and will send mycPlayerTakesAllt message to Pt with response. Miki You RN documented in this encounter [facility] 06-17-2024 Telephone encounter Note Her CBC is fine. There is nothing of concern. The labs values are established for non patient so they will flag as abnormal even when they are not [facility] Work Phone: 06-17-2024 Telephone encounter Note [...] of range. Please advise and will send mychart message to Pt with response. Miki You RN [facility] 06-15-2024 Radiology Diagnostic study note [facility] Imaging Services [address] [place], [place] [id number] CTA Chest W/WO Contrast MR#: [id number] Acct: [id number] Name: GREGG ZUNIGA Rep #: [id number] : 2000 F 24 From: Mckenzie Tran DO PCP: Care Physician,No Primary Status: REG ER Study:CTA Chest W/WO Contrast Date of Exam: 06/15/24 Exam# [id number] Ordering Dr: Frankie Jesus DO PROCEDURE: CTA [...] pelvis. Reading Location: [facility] CC: Dr. 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 ~ Supervisor Burling And Joining: Signed [facility] 06-15-2024 Evaluation note Diagnosis Onset Date Resolution Abdominal pain acute June 7:56pm acute June 15 7:56pm Shortness of breath acute June 15, 2024 7:56pm [facility] Work Phone: 1(628) 379-107704-13-2025 Evaluation note* Diagnosis Onset Date Resolution Status Admit Date 29 weeks gestation of acut e June 15, 2024 7:56pm Abdominal pain acute June 7:56pm Cramping affecting , antepartum acute June 15, 2024 7:56pm acute June 15 7:56pm Shortness of breath acute June 15, 2024 7:56pm 33 weeks gestation of acut e July 14, 2024 2:17pm Uterine contractions acute July 14, 2024 2:17pm [facility] Work Phone: 1(744) 623-600304-13-2025 Evaluation note* Diagnosis Onset Date Resolution Status Admit Date 29 weeks gestation of acut e June 15, 2024 7:56pm Abdominal pain acute June 7:56pm Cramping affecting , antepartum acute June 15, 2024 7:56pm acute June 15 7:56pm Shortness of breath acute June 15, 2024 7:56pm 33 weeks gestation of acut e July 14, 2024 2:17pm Uterine contractions acute July 14, 2024 2:17pm 33 weeks gestation of acut e July 15, 2024 8:50am Supervision of high risk in third trimester acute July 15, 2024 8:50am Threatened labor, antepartum acute July 15, 2024 8 :50am Uterine contractions acute July 15, 2024 8:50am [facility] Work Phone: 1(827) 424-665404-11-2025 NoteHNO ID: [id number] Author: MILLY SINGH MD Service: ? Author [...] - Rhogam today - Discussed classes at [facility] and peds - [facility] of Present illness Narrative* Milly Singh [...] - Rhogam today - Discussed classes at [facility] and peds - RTO 2 wks Milly Singh DO [facility] Instructions* Patient Instructions* Minerva Gordon MA - 06/13/2024 1:23 PM EDT SEQUENTIAL SCREENINGS The [facility] offers sequential screenings for women who [...] testing. It will require an appointment withour elevator technician. This is not an ultrasound performed [...] the above symptoms, contact our office at [phone] and ask to speak with anurse. After hours, you can call [employer] registry at [phone] OR call [facility] at [phone] ask to have the doctor conductor sleeping car paged. If you consider this an emergency, dial 9--1 or go to your nearest emergency department. NEED HELP? Are you dealing with a violent or abusive relationship? Are you a victim of rape or sexual assult? Call [facility] ([place]) 24 hour Crisis Hotline: 976.103.3684 or 530-849-9733. MANUAL Your Guide to a Healthy manual is now on-line. Visit [email or web address] to download your free copy [facility] Telephone encounter Note * Telephone Encounter - Manas Vogel MA - 06/10/2024 10:48 AM EDT Submitted PA for Prilosec. Received immediate response that Your PA has been resolved. No additional PA is required. Manas Vogel MA [facility]04-08-2025 Miscellaneous Notes* Telephone Encounter - Manas Vogel MA - 06/10/2024 10:48 AM EDT Submitted PA for Prilosec. Received immediate response that Your PA has been resolved. No additional PA is required. Manas Vogel MA * Telephone Encounter - Izabela Collins - 06/10/2024 9:46 AM EDT Pt called in stating [facility] needs prior auth for Prilosec. Please advise, Thank you [facility] Telephone encounter Note * Telephone Encounter - Izabela Collins - 06/10/2024 9:46 AM EDT Pt called in stating [facility] needs prior auth for Prilosec. Please advise, Thank you [facility]04-08-2025 Telephone encounter Note* Telephone Encounter - Katie Yusuf RN - 06/10/2024 9:06 AM EDT Left message for patient to check mychart message or call office. Katie Yusuf RN [facility]04-08-2025 Miscellaneous Notes* Telephone Encounter - Katie Yusuf RN - 06/10/2024 9:06 AM EDT Left message for patient to check mychart message or call office. Katie Yusuf RN * Telephone Encounter - Aminah Escoabr MD - 06/10/2024 8:42 AM EDT I [...] Sunday. Georgia Wren RN [facility] Telephone encounter Note * Telephone Encounter - Aminah Escobar MD - 06/10/2024 8:42 AM EDT I would also try warm shower again or warm soak in tub, stretching 3 x day , heating pad. Sounds like it could be MSK in nature. If any further concerns or if pain is not relieved please notify office. [facility] Work Phone: 1(771) 670-374404-08-2025 Telephone encounter Note* Telephone Encounter - Georgia [...] OB visit is Sunday. Georgia Wren RN [facility]04-02-2025 Telephone encounter Note* Telephone Encounter - [...] mg capsule lansoprazole (PREVACID) 15 mg capsule [facility]04-02-2025 Miscellaneous Notes* Telephone Encounter - Katie [...] (PREVACID) 15 mg capsule [facility] Progress note* Quick Notes - Nena [...] with 1 hour GCT Nena Méndez APRN.CNM [facility]04-02-2025 Miscellaneous Notes* Quick Notes - Nena [...] GCT Nena Méndez APRN.CNM [facility] Instructions* Patient Instructions* Manas Vogel MA - 06/04/2024 4:34 PM EDT SEQUENTIAL SCREENINGS The [facility] offers sequential screenings for women who [...] testing. It will require an appointment withour elevator technician. This is not an ultrasound performed [...] the above symptoms, contact our office at [phone] and ask to speak with anurse. After hours, you can call doctors registry at [phone] OR call [facility] at [phone] ask to have the doctor conductor sleeping car paged. If you consider this an emergency, dial or go to your nearest emergency department. NEED HELP? Are you dealing with a violent or abusive relationship? Are you a victim of rape or sexual assult? Call [facility] ([place]) 24 hour Crisis Hotline: 483.410.5604 or 079-596-5780. MANUAL Your Guide to a Healthy manual is now on-line. Visit [email or web address] to download your free copy documented [facility]04[facility] Telephone encounter Note * Telephone Encounter - Georgia Wren RN - 06/04/2024 3:54 PM EDT Called patient. Scheduled an appointment for today. Georgia Wren RN [facility]04-02-2025 Miscellaneous Notes* Telephone Encounter - Georgia Wren RN - 06/04/2024 3:54 PM EDT Called patient. Scheduled an appointment for today. Georgia Wren RN [facility] Telephone encounter Note * Telephone Encounter - Georgia Wren RN - 06/04/2024 3:50 PM EDT Spoke with CP. Ok for patient to come to office instead of L&d. Appointment given. Advised thatpatient call the office for urgent request such as decreased FM instead of a Mychart message. Georgia Wren RN [address]02-2025 Miscellaneous Notes* Telephone Encounter - Georgia Wren [...] for an office visit? [facility] Telephone encounter Note * Telephone Encounter - Georgia Wren RN - 06/04/2024 2:44 PM EDT 27w5d Do you want her seen for an office visit? [facility] Progress note* Quick Notes - Georgia [...] - TYPE + SCREEN Georgia Lino MD [facility]03-06-2025 Miscellaneous Notes* Quick Notes - Georgia [...] SCREEN Georgia Lino MD documented in [facility]25 Instructions* Patient Instructions* Manas Vogel MA - 05/08/2024 9:52 AM EST SEQUENTIAL SCREENINGS The [facility] offers sequential screenings for women who [...] testing. It will require an appointment withour elevator technician. This is not an ultrasound performed [...] the above symptoms, contact our office at [phone] and ask to speak with anurse. After hours, you can call doctors registry at [phone] OR call [facility] at [phone] ask to have the doctor conductor sleeping car paged. If you consider this an emergency, dial 91-2 or go to your nearest emergency department. NEED HELP? Are you dealing with a violent or abusive relationship? Are you a victim of rape or sexual assult? Call [facility] ([place]) 24 hour Crisis Hotline: 149.642.2667 or 862-812-9553. MANUAL Your Guide to a Healthy manual is now on-line. Visit [email or web address] to download your free copy documented in this encounterLuther[facility] Hospital02-28-2025 Progress note* Quick Notes - Milly [...] routine visit next week Milly Singh DO [facility]02-28[facility] Miscellaneous Notes* Quick Notes - Milly [...] week Milly Singh DO documented in this encounterL[facility]02-28-2025 Instructions* Patient Instructions* Amada Duran LPN - 05/02/2024 4:05 PM EST SEQUENTIAL SCREENINGS [facility] offers sequential screenings for women who [...] testing. It will require an appointment withour elevator technician. This is not an ultrasound performed [...] the above symptoms, contact our office at [phone] and ask to speak with anurse. After hours, you can call doctors registry at [phone] OR call [facility] at [phone] ask to have the doctor conductor sleeping car paged. If you consider this an emergency, dial 11-03- or go to your nearest emergency department. NEED HELP? Are you dealing with a violent or abusive relationship? Are you a victim of rape or sexual assult? Call [facility] ([facility] 24 hour Crisis Hotline: 922.937.4061 or 312-279-4002. MANUAL Your Guide to a Healthy manual is now on-line. Visit [email or web address]/HealthyPregnancyGuide to download your free copy documented in this encounterLuther[facility] Hospital[facility] Telephone encounter Note * Telephone Encounter - Katie Yusuf RN - 2024 12:43 PM EST Patient's mother notified. Katie Yusuf RN [facility] Miscellaneous Notes* Telephone Encounter - Katie Yusuf RN - 2024 12:43 PM EST Patient's mother notified. Katie Yusuf RN * Telephone Encounter - Mary Grace Gaviria RN - 2024 12:16 PM EST Left message to call office. Mary Grace Gaviria RN * Telephone Encounter - Yobany Romero [...] over 24 hours. Mother talked to provider conductor sleeping car early this morning and gave 2 imodium [...] advise. Katie Yusuf RN documented in this encounterLutheran Hospital02-20-2025 Telephone encounter Note * Telephone Encounter - Mary Grace Gaviria RN - 2024 12:16 PM EST Left message to call office. Mary Grace Gaviria RN [facility] Telephone encounter Note* Telephone Encounter - Yobany Romero MD - 2024 11:52 AM EST Zofran and imodium are her main options. I would recommend going to ED if any signs of dehydration. Yobany Romero MD [facility] Work Phone: 1(194) 508-300602-20-2025 Telephone encounter Note* Telephone Encounter - Katie Yusuf RN - 2024 11:44 AM EST 21w6d Patient's mother calling for her. She has GI virus with vomiting and diarrhea for over 24 hours. Mother talked to provider conductor sleeping car early this morning and gave 2 imodium [...] avoid ER if possible. Please advise. Katie Yusuf, [facility]02-10-2025 Progress note* Quick Notes - Martha Santamaria APRN.CNM - 04/14/2024 10:26 AM EST TAVARES-S: Gregg Zuniga is a [...] RTO in 4 weeks Martha Santamaria APRN.CNM [facility]02-10-2025 Miscellaneous Notes* Quick Notes - Martha Santamaria APRN.CNM - 04/14/2024 10:26 AM EST TAVARES-S: Gregg Zuniga is a [...] weeks Martha Santamaria APRN.CNM documented in this encounterLutheran Hospital02-10-2025 Instructions* Patient Instructions* Bruno Srivastava MA - 04/14/2024 10:18 AM EST SEQUENTIAL SCREENINGS [facility] offers sequential screenings for women who [...] testing. It will require an appointment withour elevator technician. This is not an ultrasound performed [...] the above symptoms, contact our office at [phone] and ask to speak with anurse. After hours, you can call doctors registry at [phone] OR call [facility] at [phone] ask to have the doctor conductor sleeping car paged. If you consider this an emergency, dial 9-- or go to your nearest emergency department. NEED HELP? Are you dealing with a violent or abusive relationship? Are you a victim of rape or sexual assult? Call [facility] ([place]) 24 hour Crisis Hotline: 438.121.3522 or 272-757-3930. MANUAL Your Guide to a Healthy manual is now on-line. Visit [email or web address]/HealthyPregnancyGuide to download your free copy documented in this encounterLutheran Hospital02-04-2025 Progress note* Quick Notes - Yobany [...] Anatomy US scheduled Advised on hydration and zofrchely Romero MD [facility] Work Phone: 1(431) 179-203002-04-2025 Miscellaneous Notes* Quick Notes - Yobany Romero [...] Anatomy US scheduled Advised on hydration and zofrchely Romero MD documented in this encounterLutheran Hospital02-04-2025 Instructions* Patient Instructions* Minerva Gordon MA - 04/08/2024 8:57 AM EST SEQUENTIAL SCREENINGS [facility] offers sequential screenings for women who [...] testing. It will require an appointment withour elevator technician. This is not an ultrasound performed [...] the above symptoms, contact our office at [phone] and ask to speak with anurse. After hours, you can call doctors registry at [phone] OR call [facility] at [phone] ask to have the doctor conductor sleeping car paged. If you consider this an emergency, dial 2-1-0 or go to your nearest emergency department. NEED HELP? Are you dealing with a violent or abusive relationship? Are you a victim of rape or sexual assult? Call [facility] ([place]) 24 hour Crisis Hotline: 114.466.8325 or 625-002-3998. MANUAL Your Guide to a Healthy manual is now on-line. Visit [email or web address]/HealthyPregnancyGuide to download your free copy documented in this encounterLutheran Hospital02-03-2025 Telephone encounter Note * Telephone Encounter - Mary Grace Gaviria RN - 04/07/2024 4:54 PM EST Patient called back and appointment scheduled. Mary Grace Gaviria RN [facility]-03-[facility] Miscellaneous Notes* Telephone Encounter - Mary Grace Gaviria RN - 04/07/2024 4:54 PM EST Patient called back and appointment scheduled. Mary Grace Gaviria RN * Telephone Encounter - Katie Yusuf RN - 04/07/2024 4:48 PM EST Left message for patient to call office. Katie Yusuf RN * Telephone Encounter - Martha Santamaria APRN.CNM - 04/07/2024 4:45 PM EST I would recommend appointment. Martha Santamaria APRN.CNM documented in this encounterLutheran Hospital02-03-2025 Telephone encounter Note * Telephone Encounter - Katie Yusuf RN - 04/07/2024 4:48 PM EST Left message for patient to call office. Katie Yusuf RN [facility]02-03-[facility] Telephone encounter Note* Telephone Encounter - Martha Santamaria APRN.CNM - 04/07/2024 4:45 PM EST I would recommend appointment. Martha Santamaria APRN.CNM [facility]01-24-2025 Instructions* Patient Instructions* Jay Byrd MD - 03/28/2024 9:56 AM EST The echocardiogram in December showed that the heart pumping function is 63%. This is very good. EKG is also normal. Therefore, please do not worry too much about heart arrhythmias. We can plan for a return visit as needed. documented in this encounterLutheran Hospital01-24-2025 History of Present illness Narrative* Jay Byrd MD - 03/28/2024 9:15 AM EST Images from the original note were not included. [facility] Department of Cardiovascular Medicine SECTION OF CARDIAC PACING and ELECTROPHYSIOLOGY OUTPATIENT VISIT DATE March 28, 2024 OUTPATIENT VISIT TYPE ESTABLISHED PRIMARY CARE PHYSICIAN: Kayleen Mckay MD [facility] [id number] CHIEF COMPLAINT: Follow-up for tachycardia and syncope [...] in office 12/24/2023. She was given a [employer] monitor and mailed it back but monitor was never received by [employer] (confirmed with company). Echo 12/24/2023 showed EF=63% [...] INFORMATION: Jay Byrd MD documented in this encounterLutheran Hospital01-24-2025 NoteHNO ID: [id number] Author: JAY BYRD MD Service: ? Author Type: Physician Type: Progress Notes Filed: 03/28/2024 10:26 Note Text: [facility] Department of Cardiovascular Medicine SECTION OF CARDIAC PACING and ELECTROPHYSIOLOGY OUTPATIENT VISIT DATE March 28, 2024 OUTPATIENT VISIT TYPE ESTABLISHED PRIMARY CARE PHYSICIAN: Kayleen Mckay MD [facility] [place] [id number] CHIEF COMPLAINT: Follow-up for tachycardia and syncope [...] in office 12/24/2023. She was given a [employer] monitor and mailed it back but monitor was never received by [employer] (confirmed with company). Echo 12/24/2023 showed EF=63% [...] obtained by others. CONTACT INFORMATION: Jay Byrd, [facility]01-14-2025 History of Present illness Narrative* Duke Fairchild [...] PATIENT PRESENTS WITH AN IMPLANTABLE OR ATTACHED TOP SCREW: No RADIOLOGY DEPARTMENT: General X-ray: Exam(s) Completed: Lower Extremity X- Ray(s): Knee, AP / LAT Right PERIPHERAL IV DATA: Not applicable SIGNED BY: RT Min(Sean) March 18, 2024 1:54 PM documented in this encounterLutheran Hospital01-14-2025 NoteHNO ID: [id number] Author: DUKE FAIRCHILD RT(R) Service: ? Author Type: Machine Tool Technology Instructor Type: Progress Notes Filed: 03/18/2024 14:02 Note [...] PATIENT PRESENTS WITH AN IMPLANTABLE OR ATTACHED TOP SCREW: No RADIOLOGY DEPARTMENT: General X-ray: Exam(s) Completed: Lower Extremity X-Ray(s): Knee, AP / LAT Right PERIPHERAL IV DATA: Not applicable SIGNED BY: RT Min(R) March 18, 2024 1:54 [facility]01-14-2025 NoteHNO ID: [id number] Author: CONY CARDONA APRN.BUILDING OPERATOR Service: ? Author Type: Nurse Practitioner Type: [...] in Jorge wrap after xray Cony Cardona APRN.IVETH Medical Decision Making: Problems: Moderate: New problem with uncertain prognosis Data: Unique test(s) ordered: 1 Risk: Moderate: Moderate risk from testing/treatment Medical Decision Making Level: 4 - [facility]City [facility]25 History of Present illness Narrative* Cony Cardona APRN.IVETH - 03/18/2024 1:33 PM EST Images from the original note were not included. This note was created using Reflex[employer] Network Solutionsriter. Subjective Gregg Zuniga is a 23 year [...] Level: 4 - Moderate documented in this encounterLutheran Hospital01-13-2025 Progress note* Quick Notes - Milly [...] - RTO 4 wks Milly Singh DO [facility]01-13-2025 Miscellaneous Notes* Quick Notes - Milly [...] wks Milly Singh DO documented in this encounterLutheran Hospital01-13-2025 Instructions* Patient Instructions* Minerva Gordon MA - 03/17/2024 8:24 AM EST SEQUENTIAL SCREENINGS [facility] offers sequential screenings for women who [...] testing. It will require an appointment withour elevator technician. This is not an ultrasound performed [...] the above symptoms, contact our office at [phone] and ask to speak with anurse. After hours, you can call doctors registry at [phone] OR call [facility] at [phone] ask to have the doctor conductor sleeping car paged. If you consider this an emergency, dial 9--9 or go to your nearest emergency department. NEED HELP? Are you dealing with a violent or abusive relationship? Are you a victim of rape or sexual assult? Call [facility] ([place]) 24 hour Crisis Hotline: 250.459.3568 or 443-847-6670. MANUAL Your Guide to a Healthy manual is now on-line. Visit [email or web address]/HealthyPregnancyGuide to download your free copy documented in this encounterLutheran Hospital01-02-2025 Progress note* Quick Notes - Georgia [...] ICD9: V22.0, ICD10: Z34.02 [place] Lino MD [facility]01-02-2025 Miscellaneous Notes* Quick Notes - Georgia [...] Z34.02 [place] Lino MD documented in this encounterLutheran Hospital01-02-2025 Instructions* Patient Instructions* Minerva Gordon MA - 03/06/2024 1:03 PM EST SEQUENTIAL SCREENINGS [facility] offers sequential screenings for women who [...] testing. It will require an appointment withour elevator technician. This is not an ultrasound performed [...] the above symptoms, contact our office at [phone] and ask to speak with anurse. After hours, you can call doctors registry at [phone] OR call [facility] at [phone] ask to have the doctor conductor sleeping car paged. If you consider this an emergency, dial 9-- or go to your nearest emergency department. NEED HELP? Are you dealing with a violent or abusive relationship? Are you a victim of rape or sexual assult? Call [facility] ([place]) 24 hour Crisis Hotline: 938.176.7025 or 266-420-6565. MANUAL Your Guide to a Healthy manual is now on-line. Visit [email or web address]/HealthyPregnancyGuide to download your free copy documented in this encounterLutheran Hospital12-16-2024 Telephone encounter Note * Telephone Encounter - Mary Grace Gaviria RN - 02/18/2024 12:02 PM EST Lab order pended. Patient 12w3d, seen in office today. Mary Grace Gaviria RN [facility]12-16-[facility] Miscellaneous Notes* Telephone Encounter - Mary Grace Gaviria RN - 02/18/2024 12:02 PM EST Lab order pended. Patient 12w3d, seen in office today. Mary Grace Gaviria RN documented in this encounterLutheran Hospital12-16-2024 Progress note* Quick Notes - Martha [...] RTO in 4 weeks Martha Santamaria APRN.CNM [facility]12-16-2024 Miscellaneous Notes* Quick Notes - Martha [...] weeks Martha Santamaria APRN.CNM documented in this encounterLutheran Hospital12-16-2024 Instructions* Patient Instructions* Martha Santamaria APRN.CNM [...] to help control my nausea and vomiting? [employer] has a helpful fact sheet on nausea in with recommendations. You can review it here: https://[email or web address]/fact-sheets/qkrjez-shnetzfd-fxsgpwptt-nvp/pdf/. Also, eating small meals often, drinking plenty [...] but the effects of ondansetron on a infant are not known. If ondansetron use is [...] . For more information, please see the [employer] fact sheet Paternal Exposures at https://[email or web address]/fact-sheets/uxyhfzhz-qtgqfattc-pokxmegtx/pdf/. SEQUENTIAL SCREENINGS [facility] offers sequential screenings for women who [...] testing. It will require an appointment withour elevator technician. This is not an ultrasound performed [...] the above symptoms, contact our office at [phone] and ask to speak with anurse. After hours, you can call doctors registry at [phone] OR call [facility] at [phone] ask to have the doctor conductor sleeping car paged. If you consider this an emergency, dial 8-8-6 or go to your nearest emergency department. NEED HELP? Are you dealing with a violent or abusive relationship? Are you a victim of rape or sexual assult? Call [facility] ([place]) 24 hour Crisis Hotline: 233.931.4220 or 963-544-4180. MANUAL Your Guide to a Healthy manual is now on-line. Visit [email or web address]/HealthyPregnancyGuide to download your free copy documented in this encounterLutheran Hospital12-02-2024 Telephone encounter Note * Telephone Encounter - Martha Santamaria APRN.CNM - 02/04/2024 11:20 AM EST Round ligament pain and normal discomfort. Good body mechanics, not to stretch or sudden movements which can make this worse. Warm bath, chiropractic can help. Martha Santamaria APRN.CNM [facility] Work Phone: [phone]) [phone] Miscellaneous Notes* Telephone Encounter - Martha Santamaria APRN.CNM - 02/04/2024 11:20 AM EST Round ligament pain and normal discomfort. Good body mechanics, not to stretch or sudden movements which can make this worse. Warm bath, chiropractic can help. Martha Santamaria APRN.CNM * Telephone Encounter - Angei Ocasio APRN.CNP - 02/04/2024 11:04 AM EST I have no further recommendation. Should refer to conductor sleeping car provider. Angie Ocasio APRN.CNP * Telephone Encounter - Katie Yusuf RN - 02/04/2024 10:57 AM EST 10w3d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 you have a Healthcare Power of Steam Power Plant Operator? No March 24, 2024 6:47pm Living Will No June 15, 2024 8:59pm Do you have a Healthcare Power of Steam Power Plant Operator? No June 15, 2024 8:59pm Advance Directive Response Recorded Date/ Time Living Will No June 15, 2024 8:59pm Do you have a Healthcare Power of Steam Power Plant Operator? No June 15, 2024 8:59pm Summary Purpose Reason for Referral Specialty Diagnoses / Procedures Referred By Contac t Referred To Contact Orthopedics Diagnoses Injury of right knee, initial encounter Procedures CONSULT TO ORTHOPAEDICS OFFICE/OUTPATIENT [facility] 60 MINUTES Cony Cardona, SOFTWARE PACKAGING ENGINEER.BUILDING OPERATOR [address] [place] [address] Referral ID Status Reason Start Date Expiration Date Visits Requested Visits Authorized [id number] Authorized PCP Requested Referral 03/18/2024 03/18/2025 1 1 Specialty Diagnoses / Procedures Referred By Contac t Referred To Contact XR IMAGING Diagnoses Injury of right knee, initial encounter Procedures XR KNEE LIMITED 2V AP/LAT RIGHT RADIOLOGIC EXAMINATION KNEE 1/2 VIEWS Cony Cardona, SOFTWARE PACKAGING ENGINEER.BUILDING OPERATOR [address] [place] [address] Xr Imaging [facility] Referral ID Status Reason Start Date Expiration Date V isits Requested Visits Authorized [id number] Closed Auto-Generate d Referral 03/18/2024 04/17/2025 1 1 Specialty Diagnoses / Procedures Referred By Contac t Ref[facility] Diagnoses PVC (premature ventricular contraction) Palpitation Procedures CARDIOVASCULAR MEDICINE OP FOLLOW UP APPT ORDER Jay Byrd MD [address] [facility] [address] [place] [address] [facility] [place] [address] Referral ID Status Reason Start Date Expiration Date Visits Requested Visits Authorized [id number] Authorized PCP Requested Referral 03/28/2024 03/28/2025 1 [...] Care Provider, Referrin g Provider Active Nilton HER, PA Attending Provider Active Team Status: Inactive Member Role Status Dates Dr. Kayleen Mckay MD Primary Care Provider, Referrin g Provider Active Josephine HER, PA Attending Provider Active Team Status: Inactive Member Role Status Dates Dr. Kayleen Mckay MD Primary Care Provider Active Nilton HER PA Attending Provider, Referring Pr ovider Active [...] MD Primary Care Provider Active Елена Sanchez PROCEDURE WRITER, PROCEDURE WRITER-C Attending Provider, Referring Provi crescencio Active Bonding Machine Setter Relationship Specialty Start Date End Date Kayleen Mckay MD (Fax) PCP - General Pediatrics 01/28/11 Team Status: Active Member Role Status Dates Employee Health Attending Provider Active Team Status: Inactive Member Role Status Dates Dr. Kayleen Mckay MD Primary Care Provider Active Dr. Cain Modi DO Emergency Provider Active Bonding Machine Setter Relationship Specialty Start Date End Date Kayleen Mckay MD (Fax) PCP - General Pediatrics 01/28/11 Jay Byrd MD [address] [place] [address] Primary Staff Physician Cardiology 12/24/23 Bonding Machine Setter Relationship Specialty Start Date End Date Kayleen Mckay MD (Fax) PCP - General Pediatrics 01/28/11 Jay Byrd MD [address] [place] [address] Primary Staff Physician Cardiology 12/24/23 Edith Pablo MD [address] [place] [address] Sap Trainer Pediatric Cardiology 12/24/23 Bonding Machine Setter Relationship Specialty Start Date End Date Kayleen Mckay MD (Fax) PCP - General Pediatrics 01/28/11 Jay Byrd MD [address] [place] [address] Primary Staff Physician Cardiology 12/24/23 Edith Pablo MD [address] [place] [address] Sap Trainer Pediatric Cardiology 12/24/23 Bonding Machine Setter Relationship Specialty Start Date End Date Kayleen Mckay MD PCP - General Pediatrics 01/28/11 Jay Byrd MD [address] [place] [address] Primary Staff Physician Cardiology 12/24/23 Edith Pablo MD [address] [place] [address] Sap Trainer Pediatric Cardiology 12/24/23 Bonding Machine Setter Relationship Specialty Start Date End Date Kayleen Mckay MD PCP - General Pediatrics 01/28/11 Jay Byrd MD [address] [place] [address] Primary Staff Physician Cardiology 12/24/23 Edith Pablo MD [address] [place] [address] Sap Trainer Pediatric Cardiology 12/24/23 Bonding Machine Setter Relationship Specialty Start Date End Date Kayleen Mckay MD PCP - General Pediatrics 01/28/11 Jay Byrd MD [address] [place] [address] Primary Staff Physician Cardiology 12/24/23 Edith Pablo MD [address] [place] [address] Sap Trainer Pediatric Cardiology 12/24/23 Bonding Machine Setter Relationship Specialty Start Date End Date Kayleen Mckay MD PCP - General Pediatrics 01/28/11 Jay Byrd MD [address] [place] [address] Primary Staff Physician Cardiology 12/24/23 Edith Pablo MD [address] [place] [address] Sap Trainer Pediatric Cardiology 12/24/23 Bonding Machine Setter Relationship Specialty Start Date End Date Kayleen Mckay MD PCP - General Pediatrics 01/28/11 Jay Byrd MD [address] [place] [address] Primary Staff Physician Cardiology 12/24/23 Edith Pablo MD [address] [place] [address] Sap Trainer Pediatric Cardiology 12/24/23 Bonding Machine Setter Relationship Specialty Start Date End Date Kayleen Mckay MD PCP - General Pediatrics 01/28/11 Jay Byrd MD [address] [place] [address] Primary Staff Physician Cardiology 12/24/23 Edith Pablo MD [address] [place] [address] Sap Trainer Pediatric Cardiology 12/24/23 Bonding Machine Setter Relationship Specialty Start Date End Date Kayleen Mckay MD PCP - General Pediatrics 01/28/11 Jay Byrd MD [address] [place] [address] Primary Staff Physician Cardiology 12/24/23 Edith Pablo MD [address] [place], [place] [id number] Sap Trainer Pediatric Cardiology 12/24/23 Bonding Machine Setter Relationship Specialty Start Date End Date Kayleen Mckay MD (Fax) PCP - General Pediatrics 01/28/11 Jay Byrd MD [address] [place] [address] Primary Staff Physician Cardiology 12/24/23 Edith Pablo MD [address] [place] [address] [employer] Pediatric Cardiology 12/24/23 Bonding Machine Setter Relationship Specialty Start Date End Date Kayleen Mckay MD (Fax) PCP - General Pediatrics 01/28/11 Jay Byrd MD [address] [place] [address] Primary Staff Physician Cardiology 12/24/23 Edith Pablo MD [address] [place] [address] [employer] Pediatric Cardiology 12/24/23 Bonding Machine Setter Relationship Specialty Start Date End Date Kayleen Mckay MD PCP - General Pediatrics 01/28/11 Jay Byrd MD [address] [place], [place] [id number] Primary Staff Physician Cardiology 12/24/23 Edith Pablo MD [address] [place], [place] [id number] [employer] Pediatric Cardiology 12/24/23 Bonding Machine Setter Relationship Specialty Start Date End Date Kayleen Mckay MD PCP - General Pediatrics 01/28/11 Jay Byrd MD [address] [place] [address] Primary Staff Physician Cardiology 12/24/23 Edith Pablo MD [address] [place] [address] [employer] Pediatric Cardiology 12/24/23 Bonding Machine Setter Relationship Specialty Start Date End Date Kayleen Mckay MD PCP - General Pediatrics 01/28/11 Jay Byrd MD [address] [place] [address] Primary Staff Physician Cardiology 12/24/23 Edith Pablo MD [address] [place] [address] [employer] Pediatric Cardiology 12/24/23 Bonding Machine Setter Relationship Specialty Start Date End Date Kayleen Mckay MD PCP - General Pediatrics 01/28/11 Jay Byrd MD [address] [place] [address] Primary Staff Physician Cardiology 12/24/23 Edith Pablo MD [address] [place] [address] [employer] Pediatric Cardiology 12/24/23 Bonding Machine Setter Relationship Specialty Start Date End Date Kayleen Mckay MD PCP - General Pediatrics 01/28/11 Jay Byrd MD [address] [place] [address] Primary Staff Physician Cardiology 12/24/23 Edith Pablo MD [address] [place] [address] [employer] Pediatric Cardiology 12/24/23 Bonding Machine Setter Relationship Specialty Start Date End Date Kayleen Mckay MD PCP - General Pediatrics 01/28/11 Jay Byrd MD [address] [place] [address] Primary Staff Physician Cardiology 12/24/23 Edith Pablo MD [address] [place] [address] [employer] Pediatric Cardiology 12/24/23 Bonding Machine Setter Relationship Specialty Start Date End Date Kayleen Mckay MD PCP - General Pediatrics 01/28/11 Jay Byrd MD [address] [place] [address] Primary Staff Physician Cardiology 12/24/23 Edith Pablo MD [address] [place] [address] [employer] Pediatric Cardiology 12/24/23 Bonding Machine Setter Relationship Specialty Start Date End Date Kayleen Mckay MD PCP - General Pediatrics 01/28/11 Jay Byrd MD [address] [place] [address] Primary Staff Physician Cardiology 12/24/23 Edith Pablo MD [address] [place] [address] [employer] Trainer Pediatric Cardiology 12/24/23 Bonding Machine Setter Relationship Specialty Start Date End Date Kayleen Mckay MD PCP - General Pediatrics 01/28/11 Jay Byrd MD [address] [place] [address] Primary Staff Physician Cardiology 12/24/23 Edith Pablo MD [address] [place] [address] [employer] Pediatric Cardiology 12/24/23 Bonding Machine Setter Relationship Specialty Start Date End Date Kayleen Mckay MD PCP - General Pediatrics 01/28/11 Jay Byrd MD [address] [place], [place] [id number] Primary Staff Physician Cardiology 12/24/23 Edith Pablo MD [address] [place], [place] [id number] [employer] Pediatric Cardiology 12/24/23 Bonding Machine Setter Relationship Specialty Start Date End Date Kayleen Mckay MD PCP - General Pediatrics 01/28/11 Jay Byrd MD [address] [place] [place] [address] Primary Staff Physician Cardiology 12/24/23 Edith Pablo MD [address] [place], [place] [id number] [employer] Pediatric Cardiology 12/24/23 Team Status: Active Member Role Status Dates No Primary Care Physician Primary Care Provider Active Team Status: Inactive Member Role Status Dates No Primary Care Physician Primary Care Provider Active Start: March 24, 2024 End: March 24, 2024 Dr. Len Haile , DO Attending Provider Active Start: March 24, 2024 End: March 24, 2024 Dr. Len Haile , DO Emergency Provider Active Start: March 24, 2024 End: March 24, 2024 Team Status: Inactive Member Role Status Dates No Primary Care Physician Primary Care Provider Active Start: June 15, 2024 End: June 15, 2024 Dr. Frankie Mcdaniel , Emergency Provider Activ e Start: June 15, [...] June 15, 2024 End: June 16, 2024 Bonding Machine Setter Relationship Specialty Start Date End Date Kayleen Mckay MD PCP - General Pediatrics 01/28/11 Jay Byrd MD [address] [place] [address] Primary Staff Physician Cardiology 12/24/23 Edith Pablo MD [address] [place] [address] [employer] Pediatric Cardiology 12/24/23 Bonding Machine Setter Relationship Specialty Start Date End Date Kayleen Mckay MD PCP - General Pediatrics 01/28/11 Jay Byrd MD [address] [place] [address] Primary Staff Physician Cardiology 12/24/23 Edith Pablo MD [address] [place] [address] [employer] Trainer Pediatric Cardiology 12/24/23 Bonding Machine Setter Relationship Specialty Start Date End Date Kayleen Mckay MD PCP - General Pediatrics 01/28/11 Jay Byrd MD [address] [place] [address] Primary Staff Physician Cardiology 12/24/23 Edith Pablo MD [address] [place] [address] Sap Trainer Pediatric Cardiology 12/24/23 Bonding Machine Setter Relationship Specialty Start Date End Date Kayleen Mckay MD PCP - General Pediatrics 01/28/11 Jay Byrd MD [address] [place] [address] Primary Staff Physician Cardiology 12/24/23 Edith Pablo MD [address] [place], [place] [id number] [employer] Pediatric Cardiology 12/24/23 Bonding Machine Setter Relationship Specialty Start Date End Date Kayleen Mckay MD (Fax) PCP - General Pediatrics 01/28/11 Jay Byrd MD [address] [place] [address] Primary Staff Physician Cardiology 12/24/23 Edith Pablo MD [address] [place], [place] [id number] [employer] Pediatric Cardiology 12/24/23 Team Status: Inactive Member Role Status Dates No Primary Care Physician Primary Care Provider Active Start: July 14, 2024 End: July 14, 2024 Nena Méndez CNM Attending Provider Active Start: July 14, 2024 End: July 14, 2024 Nena Méndez CNM Referring Provider Active Start: July 14, 2024 End: July 14, 2024 Bonding Machine Setter Relationship Specialty Start Date End Date Kayleen Mckay MD (Fax) PCP - General Pediatrics 01/28/11 Jay Byrd MD [address] [place] [address] Primary Staff Physician Cardiology 12/24/23 Edith Pablo MD [address] [place], [place] [id number] [employer] Pediatric Cardiology 12/24/23 Team Status: Inactive Member Role Status Dates No Primary Care Physician Primary Care Provider Active Start: July 15, 2024 End: July 15, 2024 Dr. Yobany Romero MD Attending Provider Active Start: July 15, 2024 End: July 15, 2024 Dr. Yobany Romero MD Referring Provider Active Start: July 15, 2024 End: July 15, 2024 Bonding Machine Setter Relationship Specialty Start Date End Date Kayleen Mckay MD PCP - General Pediatrics 01/28/11 Jay Byrd MD [address] [place], [place] [id number] Primary Staff Physician Cardiology 12/24/23 Edith Pablo MD [address] [place], [place] [id number] [employer] Pediatric Cardiology 12/24/23 Bonding Machine Setter Relationship Specialty Start Date End Date Kayleen Mckay MD PCP - General Pediatrics 01/28/11 Jay Byrd MD [address] [place] [address] Primary Staff Physician Cardiology 12/24/23 Edith Pablo MD [address] [place], [place] [id number] [employer] Pediatric Cardiology 12/24/23 Bonding Machine Setter Relationship Specialty Start Date End Date Kayleen Mckay MD (Fax) PCP - General Pediatrics 01/28/11 Jay Byrd MD [address] [place], [place] [id number] Primary Staff Physician Cardiology 12/24/23 Edith Pablo MD [address] [place], [place] [id number] [employer] Trainer Pediatric Cardiology 12/24/23 Bonding Machine Setter Relationship Specialty Start Date End Date Kayleen Mckay MD (Fax) PCP - General Pediatrics 01/28/11 Jay Byrd MD [address] [place], [place] [address] Primary Staff Physician Cardiology 12/24/23 Edith Pablo MD [address] [place], [place] [id number] [employer] Pediatric Cardiology 12/24/23 Team Status: Inactive Member Role Status Dates No Primary Care Physician Primary Care Provider Active Start: August 07, 2024 End: August 07, 2024 Dr. Georgia Lino MD Attending Provider Active Start: August 07, 2024 End: August 07, 2024 Dr. Georgia Lino MD Referring Provider Active Start: August 07, 2024 End: August 07, 2024 Bonding Machine Setter Relationship Specialty Start Date End Date Kayleen Mckay MD (Fax) PCP - General Pediatrics 01/28/11 Jay Byrd MD [address] [place] [address] Primary Staff Physician Cardiology 12/24/23 Edith Pablo MD [address] [place] [address] Sap Trainer Pediatric Cardiology 12/24/23 Bonding Machine Setter Relationship Specialty Start Date End Date Kayleen Mckay MD PCP - General Pediatrics 01/28/11 Jay Byrd MD [address] [place] [address] Primary Staff Physician Cardiology 12/24/23 Edith Pablo MD [address] [place] [address] Sap Trainer Pediatric Cardiology 12/24/23 Bonding Machine Setter Relationship Specialty Start Date End Date Kayleen Mckay MD (Fax) PCP - General Pediatrics 01/28/11 Jay Byrd MD [address] [place] [address] Primary Staff Physician Cardiology 12/24/23 Edith Pablo MD [address] [place] [address] Sap Trainer Pediatric Cardiology 12/24/23 Bonding Machine Setter Relationship Specialty Start Date End Date Kayleen Mckay MD PCP - General Pediatrics 01/28/11 Jay Byrd MD [address] [place] [address] Primary Staff Physician Cardiology 12/24/23 Edith Pablo MD [address] [place], [place] [id number] Sap Trainer Pediatric Cardiology 12/24/23 Bonding Machine Setter Relationship Specialty Start Date End Date Kayleen Mckay MD PCP - General Pediatrics 01/28/11 Jay Byrd MD [address] [place] [address] Primary Staff Physician Cardiology 12/24/23 Edith Pablo MD [address] [place], [place] [id number] Sap Trainer Pediatric Cardiology 12/24/23 Bonding Machine Setter Relationship Specialty Start Date End Date Kayleen Mckay MD PCP - General Pediatrics 01/28/11 Jay Byrd MD [address] [place] [address] Primary Staff Physician Cardiology 12/24/23 Edith Pablo MD [address] [place], [place] [id number] Sap Trainer Pediatric Cardiology 12/24/23 Source Comments (unrecognize d section and content) In the event this informatio n is protected by the Federal Confidentiality of Alcohol and Drug Abuse Patient Records regulations: The Federal rules restrict any use of the information to criminally investigate or prosecute any alcohol or drug abuse patient.[facility] HospitalIn the event this information is protected by the Federal Confidentiality of Alcohol and Drug Abuse Patient Records regulations: The Federal rules restrict any use of the information to criminally investigate or prosecute any alcohol or drug abuse patient.[facility] HospitalIn the event this information is protected by the Federal Confidentiality of Alcohol and Drug Abuse Patient Records regulations: The Federal rules restrict any use of the information to criminally investigate or prosecute any alcohol or drug abuse patient.[facility] HospitalIn the event this information is protected by the Federal Confidentiality of Alcohol and Drug Abuse Patient Records regulations: The Federal rules restrict any use of the information to criminally investigate or prosecute any alcohol or drug abuse patient.[facility] HospitalIn the event this information is protected by the Federal Confidentiality of Alcohol and Drug Abuse Patient Records regulations: The Federal rules restrict any use of the information to criminally investigate or prosecute any alcohol or drug abuse patient.[facility] HospitalIn the event this information is protected by the Federal Confidentiality of Alcohol and Drug Abuse Patient Records regulations: The Federal rules restrict any use of the information to criminally investigate or prosecute any alcohol or drug abuse patient.[facility] HospitalIn the event this information is protected by the Federal Confidentiality of Alcohol and Drug Abuse Patient Records regulations: The Federal rules restrict any use of the information to criminally investigate or prosecute any alcohol or drug abuse patient.[facility] HospitalIn the event this information is protected by the Federal Confidentiality of Alcohol and Drug Abuse Patient Records regulations: The Federal rules restrict any use of the information to criminally investigate or prosecute any alcohol or drug abuse patient.[facility] HospitalIn the event this information is protected by the Federal Confidentiality of Alcohol and Drug Abuse Patient Records regulations: The Federal rules restrict any use of the information to criminally investigate or prosecute any alcohol or drug abuse patient.[facility] HospitalIn the event this information is protected by the Federal Confidentiality of Alcohol and Drug Abuse Patient Records regulations: The Federal rules restrict any use of the information to criminally investigate or prosecute any alcohol or drug abuse patient.[facility] HospitalIn the event this information is protected by the Federal Confidentiality of Alcohol and Drug Abuse Patient Records regulations: The Federal rules restrict any use of the information to criminally investigate or prosecute any alcohol or drug abuse patient.[facility] HospitalIn the event this information is protected by the Federal Confidentiality of Alcohol and Drug Abuse Patient Records regulations: The Federal rules restrict any use of the information to criminally investigate or prosecute any alcohol or drug abuse patient.[facility] HospitalIn the event this information is protected by the Federal Confidentiality of Alcohol and Drug Abuse Patient Records regulations: The Federal rules restrict any use of the information to criminally investigate or prosecute any alcohol or drug abuse patient.[facility] HospitalIn the event this information is protected by the Federal Confidentiality of Alcohol and Drug Abuse Patient Records regulations: The Federal rules restrict any use of the information to criminally investigate or prosecute any alcohol or drug abuse patient.[facility] HospitalIn the event this information is protected by the Federal Confidentiality of Alcohol and Drug Abuse Patient Records regulations: The Federal rules restrict any use of the information to criminally investigate or prosecute any alcohol or drug abuse patient.[facility] HospitalIn the event this information is protected by the Federal Confidentiality of Alcohol and Drug Abuse Patient Records regulations: The Federal rules restrict any use of the information to criminally investigate or prosecute any alcohol or drug abuse patient.[facility] HospitalIn the event this information is protected by the Federal Confidentiality of Alcohol and Drug Abuse Patient Records regulations: The Federal rules restrict any use of the information to criminally investigate or prosecute any alcohol or drug abuse patient.[facility] HospitalIn the event this information is protected by the Federal Confidentiality of Alcohol and Drug Abuse Patient Records regulations: The Federal rules restrict any use of the information to criminally investigate or prosecute any alcohol or drug abuse patient.[facility] HospitalIn the event this information is protected by the Federal Confidentiality of Alcohol and Drug Abuse Patient Records regulations: The Federal rules restrict any use of the information to criminally investigate or prosecute any alcohol or drug abuse patient.[facility] HospitalIn the event this information is protected by the Federal Confidentiality of Alcohol and Drug Abuse Patient Records regulations: The Federal rules restrict any use of the information to criminally investigate or prosecute any alcohol or drug abuse patient.[facility] HospitalIn the event this information is protected by the Federal Confidentiality of Alcohol and Drug Abuse Patient Records regulations: The Federal rules restrict any use of the information to criminally investigate or prosecute any alcohol or drug abuse patient.[facility] HospitalIn the event this information is protected by the Federal Confidentiality of Alcohol and Drug Abuse Patient Records regulations: The Federal rules restrict any use of the information to criminally investigate or prosecute any alcohol or drug abuse patient.[facility] HospitalIn the event this information is protected by the Federal Confidentiality of Alcohol and Drug Abuse Patient Records regulations: The Federal rules restrict any use of the information to criminally investigate or prosecute any alcohol or drug abuse patient.[facility] HospitalIn the event this information is protected by the Federal Confidentiality of Alcohol and Drug Abuse Patient Records regulations: The Federal rules restrict any use of the information to criminally investigate or prosecute any alcohol or drug abuse patient.[facility] HospitalIn the event this information is protected by the Federal Confidentiality of Alcohol and Drug Abuse Patient Records regulations: The Federal rules restrict any use of the information to criminally investigate or prosecute any alcohol or drug abuse patient.[facility] HospitalIn the event this information is protected by the Federal Confidentiality of Alcohol and Drug Abuse Patient Records regulations: The Federal rules restrict any use of the information to criminally investigate or prosecute any alcohol or drug abuse patient.[facility] HospitalIn the event this information is protected by the Federal Confidentiality of Alcohol and Drug Abuse Patient Records regulations: The Federal rules restrict any use of the information to criminally investigate or prosecute any alcohol or drug abuse patient.[facility] HospitalIn the event this information is protected by the Federal Confidentiality of Alcohol and Drug Abuse Patient Records regulations: The Federal rules restrict any use of the information to criminally investigate or prosecute any alcohol or drug abuse patient.[facility] HospitalIn the event this information is protected by the Federal Confidentiality of Alcohol and Drug Abuse Patient Records regulations: The Federal rules restrict any use of the information to criminally investigate or prosecute any alcohol or drug abuse patient.[facility] HospitalIn the event this information is protected by the Federal Confidentiality of Alcohol and Drug Abuse Patient Records regulations: The Federal rules restrict any use of the information to criminally investigate or prosecute any alcohol or drug abuse patient.[facility] HospitalIn the event this information is protected by the Federal Confidentiality of Alcohol and Drug Abuse Patient Records regulations: The Federal rules restrict any use of the information to criminally investigate or prosecute any alcohol or drug abuse patient.[facility] HospitalIn the event this information is protected by the Federal Confidentiality of Alcohol and Drug Abuse Patient Records regulations: The Federal rules restrict any use of the information to criminally investigate or prosecute any alcohol or drug abuse patient.[facility] HospitalIn the event this information is protected by the Federal Confidentiality of Alcohol and Drug Abuse Patient Records regulations: The Federal rules restrict any use of the information to criminally investigate or prosecute any alcohol or drug abuse patient.[facility] HospitalIn the event this information is protected by the Federal Confidentiality of Alcohol and Drug Abuse Patient Records regulations: The Federal rules restrict any use of the information to criminally investigate or prosecute any alcohol or drug abuse patient.[facility] HospitalIn the event this information is protected by the Federal Confidentiality of Alcohol and Drug Abuse Patient Records regulations: The Federal rules restrict any use of the information to criminally investigate or prosecute any alcohol or drug abuse patient.[facility] HospitalIn the event this information is protected by the Federal Confidentiality of Alcohol and Drug Abuse Patient Records regulations: The Federal rules restrict any use of the information to criminally investigate or prosecute any alcohol or drug abuse patient.[facility] HospitalIn the event this information is protected by the Federal Confidentiality of Alcohol and Drug Abuse Patient Records regulations: The Federal rules restrict any use of the information to criminally investigate or prosecute any alcohol or drug abuse patient.[facility] HospitalIn the event this information is protected by the Federal Confidentiality of Alcohol and Drug Abuse Patient Records regulations: The Federal rules restrict any use of the information to criminally investigate or prosecute any alcohol or drug abuse patient.[facility] HospitalIn the event this information is protected by the Federal Confidentiality of Alcohol and Drug Abuse Patient Records regulations: The Federal rules restrict any use of the information to criminally investigate or prosecute any alcohol or drug abuse patient.[facility] HospitalIn the event this information is protected by the Federal Confidentiality of Alcohol and Drug Abuse Patient Records regulations: The Federal rules restrict any use of the information to criminally investigate or prosecute any alcohol or drug abuse patient.[facility] HospitalIn the event this information is protected by the Federal Confidentiality of Alcohol and Drug Abuse Patient Records regulations: The Federal rules restrict any use of the information to criminally investigate or prosecute any alcohol or drug abuse patient.[facility] HospitalIn the event this information is protected by the Federal Confidentiality of Alcohol and Drug Abuse Patient Records regulations: The Federal rules restrict any use of the information to criminally investigate or prosecute any alcohol or drug abuse patient.[facility] HospitalIn the event this information is protected by the Federal Confidentiality of Alcohol and Drug Abuse Patient Records regulations: The Federal rules restrict any use of the information to criminally investigate or prosecute any alcohol or drug abuse patient.[facility] HospitalIn the event this information is protected by the Federal Confidentiality of Alcohol and Drug Abuse Patient Records regulations: The Federal rules restrict any use of the information to criminally investigate or prosecute any alcohol or drug abuse patient.[facility] HospitalIn the event this information is protected by the Federal Confidentiality of Alcohol and Drug Abuse Patient Records regulations: The Federal rules restrict any use of the information to criminally investigate or prosecute any alcohol or drug abuse patient.[facility] HospitalIn the event this information is protected by the Federal Confidentiality of Alcohol and Drug Abuse Patient Records regulations: The Federal rules restrict any use of the information to criminally investigate or prosecute any alcohol or drug abuse patient.[facility] HospitalIn the event this information is protected by the Federal Confidentiality of Alcohol and Drug Abuse Patient Records regulations: The Federal rules restrict any use of the information to criminally investigate or prosecute any alcohol or drug abuse patient.[facility] HospitalIn the event this information is protected by the Federal Confidentiality of Alcohol and Drug Abuse Patient Records regulations: The Federal rules restrict any use of the information to criminally investigate or prosecute any alcohol or drug abuse patient.[facility] HospitalIn the event this information is protected by the Federal Confidentiality of Alcohol and Drug Abuse Patient Records regulations: The Federal rules restrict any use of the information to criminally investigate or prosecute any alcohol or drug abuse patient.[facility] HospitalIn the event this information is protected by the Federal Confidentiality of Alcohol and Drug Abuse Patient Records regulations: The Federal rules restrict any use of the information to criminally investigate or prosecute any alcohol or drug abuse patient.[facility] HospitalIn the event this information is protected by the Federal Confidentiality of Alcohol and Drug Abuse Patient Records regulations: The Federal rules restrict any use of the information to criminally investigate or prosecute any alcohol or drug abuse patient.[facility] HospitalIn the event this information is protected by the Federal Confidentiality of Alcohol and Drug Abuse Patient Records regulations: The Federal rules restrict any use of the information to criminally investigate or prosecute any alcohol or drug abuse patient.[facility] HospitalIn the event this information is protected by the Federal Confidentiality of Alcohol and Drug Abuse Patient Records regulations: The Federal rules restrict any use of the information to criminally investigate or prosecute any alcohol or drug abuse patient.[facility] HospitalIn the event this information is protected by the Federal Confidentiality of Alcohol and Drug Abuse Patient Records regulations: The Federal rules restrict any use of the information to criminally investigate or prosecute any alcohol or drug abuse patient.[facility] HospitalIn the event this information is protected by the Federal Confidentiality of Alcohol and Drug Abuse Patient Records regulations: The Federal rules restrict any use of the information to criminally investigate or prosecute any alcohol or drug abuse patient.[facility] HospitalIn the event this information is protected by the Federal Confidentiality of Alcohol and Drug Abuse Patient Records regulations: The Federal rules restrict any use of the information to criminally investigate or prosecute any alcohol or drug abuse patient.[facility] HospitalIn the event this information is protected by the Federal Confidentiality of Alcohol and Drug Abuse Patient Records regulations: The Federal rules restrict any use of the information to criminally investigate or prosecute any alcohol or drug abuse patient.[facility] Reason for Visit (unrecogniz ed section and content) Reason Comments Shoulder Injury L shoulder Reason Onset Date Comments Palpitations 12/24/2023 Reason Comments Event ZIO PATCH Reason Onset Date Comments Care 02/18/2024 Reason Comments US Specialty Diagnoses / Procedures Referred By Contac t Referred To Contact [facility] Diagnoses 7 weeks gestation of Procedures NUCHAL TRANSLUCENCY WHI US NUCHAL TRANSLUCENCY 1ST GESTATION Angie Ocasio, SOFTWARE PACKAGING ENGINEER.BUILDING OPERATOR [address] [place] [address] [facility] [address] [place] [address] Referral ID Status Reason Start Date Expiration Date V isits Requested Visits Authorized [id number] Closed Auto-Generate d Referral 01/14/2024 01/13/2025 1 1 Reason Onset Date Comments Care 03/06/2024 Reason Onset Date Comments Care 03/17/2024 Reason Comments Knee Injury R knee injury x toda y Reason Onset Date Comments Arrhythmia 03/28/2024 Reason Onset Date Comments Care 04/08/2024 Reason Onset Date Comments Care 04/14/2024 Specialty Diagnoses / Procedures Referred By Vaibhav t Referred To Contact [facility] Diagnoses 12 weeks gestation of Encounter for supervision of normal first in second trimester Procedures OBSTETRIC ULTRASOUND WHI US PREG UTERUS AFTER 1ST TRIMEST GESTATION Martha Santamaria APRN.CNChris [address] [place] [address] Phone: tel: fax: [facility] [address] [place] [address] Referral ID Status Reason Start Date Expiration Date V isits Requested Visits Authorized [id number] Closed Auto-Generate d Referral 02/18/2024 02/17/2025 1 [...] dizziness, seeing stars Reason Comments OB Contractions Reason Comments OB-fall Reason Onset Date Comments Care 08/11/2024 Reason Comments OB Cramping Reason Onset Date Comments Population Health Navigation Outreach 08/15/2024 to PCP/OB Reason Onset Date Comments Care 08/19/2024 Reason Onset Date Comments Care 08/22/2024 INFORMATION SOURCE (unrecogn ized section and content) DATE CREATED AUTHOR 05/03/2023 [facility] DATE CREATED AUTHOR AUTHOR'S ORGANIZ ATION 07/11/2024 [facility] DATE CREATED AUTHOR AUTHOR'S ORGANIZ ATION 07/18/2024 [facility] DATE CREATED AUTHOR AUTHOR'S ORGANIZ ATION 08/17/2024 [facility] DATE CREATED AUTHOR AUTHOR'S ORGANIZ ATION 08/22/2024 [facility] FOR RECORDS PERTAINING TO PATIENTS WHO [...] BE BASED ON THE PRIMARY CLINICAL RECORDS. [facility] [employer] [facility]. provides no warranty or guarantee of the accuracy or completeness of information in this document.
[2024-08-22 20:06] LABS: Absolute Lymphocyte Count 2.28 X10^3/uL (0.83-4.51); Absolute Neutrophil Count 10.4 X10^3/uL (2.0-7.7); Basophil# 0.05 X10^3/uL; Basophil% 0.4 % (0-1); Eosinophil# 0.26 X10^3/uL; Eosinophils% 1.9 % (0-5); Hemoglobin 12.5 g/dL (12.0-15.0); Lymphocyte # 2.28 X10^3/ul (0.83-4.51); Lymphocyte % 16.3 % (19-41); Mean Corp Hgb Conc 34.7 g/dL (32-36); Mean Corpuscular Hgb 31.9 pg (27.0-32.0); Mean Corpuscular Volume 91.8 fL (81-99); Mean Platelet Vol. 10.5 fl (6.2-12.0); Monocyte# 0.87 X10^3/uL; Monocyte% 6.2 % (0-10); NRBC Flagged by Analyzer 0 % (0-5); Neutrophil # 10.39 X10^3/uL (2.7-7.7); Neutrophil % 74.2 % (47-70); Platelet Count 209 K/mm3 (150-450); RBC Distribution Width CV 13.2 % (11.6-14.6); RBC Distribution Width SD 44.1 fl (35.1-43.9); Red Blood Count 3.92 M/mm3 (4.2-5.4)
[2024-08-22 20:11] VITALS: BP 122/86; PULSE 121; RESP 17; TEMP 37.1
[2024-08-22 20:12] VITALS: PULSE 120; O2SAT 98
[2024-08-22 20:46] LABS: Syphilis Antibodies Nonreactive (Nonreactive)
[2024-08-22] MEDS: 0.9% Normal Saline Single 100 ML IV.SOLN. INTRA-UTER (20:47)
--- NOTE | 2024-08-22 20:58 | PCM.HP.OB ---
HPI - General General Date of Admission: 08/22/24 Date of Service: 08/22/24 Chief Complaint: induction of labor HPI Narrative STEWART AQUINO, is a 24 F who presents elective induction labor. GBS negative. Maternal Data Information Final JEM: 08/29/24 Gestational age: 39 PFSH PFSH Medical History Depression Anxiety Physical exam, pre-employment Palpitations Chest pain PVCs (premature ventricular contractions) Cephalgia Contact with and (suspected) exposure to other viral communicable diseases Strain of right knee Home Medications ?Medication ?Instructions ?Recorded ?Last Taken ?Type acetaminophen 325 mg tablet 325 mg PO ONCE PRN fever or pain 12/08/21 Unknown History (Tylenol) ondansetron 4 mg disintegrating 4 mg PO Q8H PRN PRN Nausea #10 tabs 03/24/24 Unknown Rx tablet aspirin 81 mg chewable tablet 1 tab PO DAILY prophylatic 07/14/24 08/21/24 History (Children's Aspirin) metoprolol succinate 25 mg 25 mg PO DAILY PVC 07/14/24 08/22/24 History tablet,extended release 24 hr vit no.95-ferrous 1 tab PO DAILY 07/14/24 08/22/24 History fumarate 28 mg-folic acid 800 mcg tablet () pantoprazole 20 mg tablet,delayed 20 mg PO DAILY heartburn 08/07/24 08/21/24 History release (Protonix) sertraline 25 mg tablet (Zoloft) 25 mg PO DAILY depression and 08/07/24 08/06/24 History anxiety Allergy/AdvReac Type Severity Reaction Status Date / Time lactose Allergy Mild Unknown Verified 08/22/24 19:47 adhesive (adhesives) AdvReac Severe Rash Verified 08/22/24 19:47 Family History Grandmother Heart disease Parkinsons Cancer Grandfather Cancer Surgical History Hx of arthroscopy of right knee Social History household members: spouse housing: house Smoking Status: Never smoker alcohol intake: never substance use type: does not use caffeine: Yes History 1 Elective abortions Hx Para 0 Spontaneous abortions Hx # Term Pregnancies Ectopic pregnancies Hx # Pregnancies Multiple births # of living children NST FHR Rate Baby A Baseline: 150 Variability:: Moderate Accelerations:: 15 x 15 Decelerations:: None NST Reactive:: Yes FHR Category:: Category I Uterine Activity:: irritable ROS Constitutional Constitutional: Denies fatigue, fever(s) or malaise Eyes Eyes: Denies change in vision ENT HEENT: Denies dizziness or headache(s) Cardiovascular Cardiovascular: Denies chest pain, dyspnea or lightheadedness Respiratory/Chest Respiratory/Chest: Denies cough or dyspnea Gastrointestinal Gastrointestinal: Denies change in bowel habits Genitourinary Genitourinary: Denies burning urination or genital lesions Integumentary Integumentary: Denies rash Neurologic Neurologic: Denies confusion, dizziness, headache(s), numbness or weakness Vital Signs Vital Signs Vital Signs: 08/22/24 20:11 08/22/24 20:11 08/22/24 20:12 Pulse Rate 121 H 120 H Blood Pressure 122/86 H BP Systolic 122 BP Diastolic 86 Pulse Ox 08/22/24 20:12 Pulse Rate Blood Pressure BP Systolic BP Diastolic Pulse Ox 98 Weight Weight: 76.827 kg Body Mass Index (BMI) 32.0 Physical Exam Const alert and no apparent distress General Appearance: cooperative HEENT normocephalic Resp normal respiratory effort GI soft to palpation GI Narrative: gravid, nontender, appropriate for gestational age Extremity no calf tenderness General Extremity: edema Skin no wounds Rashes: No rashes noted Psych activity/motor behavior normal Labs Labs Labs: Blood Type O NEGATIVE Antibody Screen Pending Hct 36.0 % (37-47) L Hgb 12.5 g/dL (12.0-15.0) Syphilis Total Ab Nonreactive (Nonreactive) Assessment & Plan (1) 39 weeks gestation of : (2) Elective induction of labor planned: PLAN: Plan perry/pit GBS negative Epidural prn
[2024-08-22] MEDS: Lactated Ringers 1,000 ML 50 ML IV (21:15)
[2024-08-22] MEDS: Oxytocin 15 Units/NS 250ml 15 UNITS/250 ML IV.SOLN 2 UNITS IV (21:15)
[2024-08-22] MEDS: 0.9% Saline Lock 10 ML Syringe IV (21:15)
[2024-08-22 21:19] VITALS: RESP 16; TEMP 37.1
[2024-08-22 21:20] VITALS: BP 131/79; PULSE 102; PULSE 95; O2SAT 97
[2024-08-22 23:00] VITALS: BP 141/87; PULSE 88; RESP 16; TEMP 37.2
[2024-08-23] VITALS (50 sets, daily range): BP systolic 107–147; BP diastolic 55–98; PULSE 73–130; RESP 14–18; TEMP 35.7–37.2; O2SAT 97–100
--- OUTSIDE RECORDS SUMMARY | 2024-08-23 07:17 | XMS RPT_ITS | CCD ---
Author Organization [facility] Care Team Providers Care Computer Support Specialist Instructor Name Role Phone Dr. Kayleen Mckay Primary Care Provider Dr. Kayleen Mckay Referring Provider ARDEN Campos Attending Provider ARDEN Ruiz Attending Provider Dr. Simeon Delaney Attending Provider Dr. Kayleen Mcaky Primary Care Provider Dr. Kayleen Mckay Referring [...] Attending Unavailable Nena Méndez Attending Unavailable Nena Ménedz Referring Unavailable Care Physician, No Primary Primary [...] Care Unavailable MICHELLE, JAY Z Referring Unavailable MKCAY, KAYLEEN ЕЛЕНА Primary Care Unavailable GEORGIA LINO [...] Translations: [LACTOSE] Drug Allergy 2 GI Upset [facility] (1 source) MILK-RELATED COMPOUNDS; Translations: [MILK-RELATED COMPOUNDS] Propensity to adverse reactions to drug (disorder) [facility] (20 sources) Adhesive agent; Translations: [ADHESIVE] Drug Allergy 4 [facility] Comment on above: holter patches (1 source) Adhesive agent Drug allergy (disorder) 5 [facility] (1 source) Lactose Drug Allergy 5 [facility] Medications Current Medications Medication Drug Class(es) [...] take 12.5 mg by mouth at bedti nj Metoprolol Succinate Active 12.5 MG PO AT [...] {tbl} PO DAILY July 14, 2024 12:00am ox177-dblf-qbgkg acid ( 19) 29 mg iron- 1 mg (20 sources) Start: 05-02-2024 take 1 tablet by mouth once daily nu352-tmps-kfrsy acid ( 19) 29 mg iron- 1 [...] Low back pain during in third trimester ([facility]); Translations: [Low back pain during in third trimester ([facility])] Onset: 07-14-2024 Past or Other Problems Problem [...] B/Oon Glucose Ql (U) Negative Neg mg/dL [facility] Interpretation and review of laboratory results Normal [facility] Protein.monoclonal (U) [Mass/Vol] Negative Neg mg/dL [facility] CNPNon 08-12-2024 CNPN Telephone (OBGYWM) KENIAGREGG ([id number]) 4 F Date Time Provider Department 08/12/24 [...] or would you rather her go to [facility]? Thank you. PEACE Beatty Karmon, MD 08/12/2024 12:10 PM Signed The pelvic pressure with standing is a common occurrence. I would recommend rest and hydration. If having regular contractions, red bleeding beyond 24 hours or LOF should go to [facility]. MD Siena Pires Jennifer, RN [...] 1 tablet by mouth once daily. - zz566-naim-ntjjh acid ( 19) 29 mg iron- 1 [...] Status:Closed by GEORGIA WREN on 08/12/24 Normal [facility] ROUTINE, GROUP B ST REPTOCOCCUS BY PCRon 08-11-2024 ROUTINE, GROUP B STREPTOCOCCUS BY PCR Not detected Normal [facility] Comment on above: Performed By: #### 5 7021-8 #### [facility] CLIA [id number] [address] [place] [address] OF ANDRE Jose Luis 08-09-2024 RAINER Negative Normal [facility] Comment on above: Result Comment: Storm Geiger Study Reference: Negative No cells seen. TESTING PERFORMED AT [facility]. ORIGINAL REPORT ON FILE IN LAB CONTAINS ADDITIONAL TEST SITE INFORMATION. AMENDED REPORT 08/09/24 0738 DELVIN GEIGER previously reported as: Ramakrishna Geiger Study Reference: Negative No cells seen. TESTING PERFORMED AT [facility]. ORIGINAL REPORT ON FILE IN LAB CONTAINS ADDITIONAL TEST SITE INFORMATION. Performed By: #### L 803.2300 #### [facility] [address] [place], [place] [address]. [place], [place], [id number] 12 Lead EKGon 08-07-2024 12 [facility] Cardiovascular Services [address] [place], [place] [address] [address] 12 Lead EKG 08/07/242204 MR#: [id number] Acct: [id number] Name: GREGG ZUNIGA Rep #: [id number] : 2000 24 From: Cailin Joy MD Attending Dr: Dr. Georgia Lino MD Status: D EP CLI Ordering Dr: Georgia Lino MD Date: 08/07/24 Location: [facility] Sex: F C Admitted: Test Reason [...] found Confirmed by MARKO SANTIAGO, JOSE M ([id number]), digital editor MINERVA HARRIS ([id number]) on 08/11/2024 6:56:33 AM Referred By: Georgia Lino Confirmed By: JOSE M JOY MD 08/11/24 0656 Date Cailin Joy MD CC: Dr. Georgia Lino MD; No Primary Care Physician Signed [facility] [id number] 08-07-2024 ABO and Rh group Nom (Bld) Blood group O Rh(D) negative Normal [facility] Comment on above: Performed By: #### L 503.7505, L504.2610, L501.2450, L100.0100, L500.4050 #### [facility] [address] [place], [place], [id number] BRho(D) IGon 08-07-2024 Rho(D) IG Normal [facility] Comment on above: Result Comment: [id number] Rho(D) IG PRSMD TRFSD 08/07/24 193 Performed By: #### L 503.7505, L504.2610, L501.2450, L100.0100, L500.4050 #### [facility] [address] [place], [address] [facility] GRE[facility] ZUNIG[facility] ([id number]) 4 F Date Time Provider Department 08/07/24 [...] of fluid. Patient instructed to go to [facility] for evaluation. Patient voiced understanding. [facility] notified. Mary Grace Gaviria RN [...] 1 tablet by mouth once daily. - fi487-rcwd-urcuh acid ( 19) 29 mg iron- 1 [...] by MARY GRACE GAVIRIA on 08/07/24 Normal [facility] OB Triage Physician Noteon 0 08-07-2024 OB Triage Physician Note [facility] Medical Records Department [address] [place] [address] OB Triage Physician Note 08/07/241914 MR#: [id number] Acct: [id number] Name: GREGG ZUNIGA Rep #: [id number] : 2000 24 From: Georgia Lino MD PCP: Care Physician,No Primary Status:DEP CLI Y Location: [facility] HPI - General General Date of [...] Final JEM: 08/29/24 Gestational age: 36+6 [facility] Medical History Physical exam, pre-employment Palpitations Chest [...] History (Updated 06/15/24 @ 21:00 by Haylee Glod) household members: spouse housing: house Smoking Status: [...] MD; No Primary Care Physician Signed Normal [facility] Type AND Screenon 08-07-2024 A1 CELL Not performed Normal [facility] Comment on above: Order Comment: Has p t arrived? [id number] fell on abdomen Result Comment: Canc elled via OM: Order Changed Performed By: #### L 503.7505, L504.2610, L501.2450, L100.0100, L500.4050 #### [facility] [address] [place], [place], [address] Ab SCREEN GEL Not performed Normal [facility] Comment on above: Order Comment: Has p t arrived? [id number] fell on abdomen Result Comment: Canc elled via OM: Order Changed Performed By: #### L 503.7505, L504.2610, L501.2450, L100.0100, L500.4050 #### [facility] [address] [place], [address] ABO and Rh group Nom (Bld) Test Not Performed Normal [facility] Comment on above: Order Comment: Has p t arrived? [id number] fell on abdomen Result Comment: Canc elled via OM: Order Changed Performed By: #### L 503.7505, L504.2610, L501.2450, L100.0100, L500.4050 #### [facility] [address] [place], [address] ANTI A Not performed Normal [facility] Comment on above: Order Comment: Has p t arrived? [id number] fell on abdomen Result Comment: Canc elled via OM: Order Changed Performed By: #### L 503.7505, L504.2610, L501.2450, L100.0100, L500.4050 #### [facility] [address] [place], [address] ANTI B Not performed Normal [facility] Comment on above: Order Comment: Has p t arrived? [id number] fell on abdomen Result Comment: Canc elled via OM: Order Changed Performed By: #### L 503.7505, L504.2610, L501.2450, L100.0100, L500.4050 #### [facility] [address] [place], [address] ANTI D Not performed Normal [facility] Comment on above: Order Comment: Has p t arrived? [id number] fell on abdomen Result Comment: Canc elled via OM: Order Changed Performed By: #### L 503.7505, L504.2610, L501.2450, L100.0100, L500.4050 #### [facility] [address] [place], [address] B CELLS Not performed Normal [facility] Comment on above: Order Comment: Has p t arrived? [id number] fell on abdomen Result Comment: Canc elled via OM: Order Changed Performed By: #### L 503.7505, L504.2610, L501.2450, L100.0100, L500.4050 #### [facility] [address] [place], [address] [facility] GREGG ZUNIGA ([id number]) 4 F Date Time Provider Department 07/17/24 SHARA MARTINEZ OBGYWM During your visit today, we recorded the following information about you: Georgia Wrne, PEACE 07/17/2024 8:55 AM Signed 33w6d Patient called because she's been taking Macrobid for 4 days and still having pain. States that she began niru at 6:00 PM every 2-3 minutes for 30-50 seconds. Rating pain 8-9. Feels that she has been leaking fluid since Sunday. States she told [facility] nurse, but swab was not done. Spoke with DM regarding plan of care. Offered patient a visit here, go to [facility] (risk that baby could be transported if she delivers) or go to [place]. For peace of mind, patient said, she is going to [place]. JEZ Wren, Miki Jacobo RN 07/17/2024 2:45 PM Signed Pt calls back stating she went to [facility]. Was told she was 1cm dilated; [...] doing and to call the office/return to [facility] if she has LOF/vaginal bleeding, [...] 1 tablet by mouth once daily. - ua237-umjw-bjzfp acid ( 19) 29 mg iron- 1 [...] Status:Closed by GEORGIA WREN on 07/17/24 Normal [facility] ED Triage Noteon 07-17-2024 ED Triage Note HNO ID: [id number] Author: MILES MCKAY APRN.CNP Service: Emergency Medicine [...] this encounter. SIGNATURE: Miles Mckay APRN.CNP Normal [facility] OB Triage Physician Noteon 0 07-17-2024 OB Triage Physician Note [facility] Medical Records Department [address] [place] [address] OB Triage Physician Note 07/17/24 0857 MR#: [id number] Acct: [id number] Name: GREGG ZUNIGA Rep #: [id number] : 2000 24 From: Shara Martinez MD PCP: Care Physician,No Primary Status:DEP CLI Y Location: [facility] HPI - General General Date of Admission: 07/15/24 Date of Service: 07/15/24 Chief Complaint: abd pain HPI Narrative GREGG ZUNIGA, is a 24 F who presents c/o abdominal pain, contractions Maternal Data Information Final JEM: 08/29/24 Gestational age: 33 4/7 [facility] Medical History Physical exam, pre-employment [...] MD; No Primary Care Physician Signed Normal [facility] Urine Cultureon 07-16-2024 URC Mixed Gram Positive Organisms [place] Count 11,000-25,000 MIXC Mixed contaminants. Submit a new specimen if indicated. Normal [facility] Comment on above: Performed By: #### L 503.7505, L504.2610, L501.2450, L100.0100, L500.4050 #### [facility], [address] [facility] 07-15-2024 [facility] Telephone (CARDMN) GREGG ZUNIGA ([id number]) 4 F Date Time Provider Department 07/15/24 JAY BYRD During your visit today, we recorded the following information about you: Maribel Joaquin 07/15/2024 11:23 AM Signed July 15, 2024 Patient Contact Number: [phone] (home) [phone] (cell) Patient last seen within the last year: Yes Reason for Call: Dizziness and Other Issue: Pt is 33.5 weeks . States she experience having contractions and went to local ED ([facility]) yesterday and today and was sent [...] 1 tablet by mouth once daily. - wr675-dzje-zsess acid ( 19) 29 mg iron- 1 [...] Status:Closed by NACHO KWAN on 07/15/24 Normal [facility] Amorphous sediment detection in urine sediment by light microscopyOrdered By: Nena Méndez on 07-14-2024 Amorphous sediment LM Ql (Urine sed) 2+ [facility] BACTERIAL VAGINOSIS NAATon 0 07-14-2024 Lactobacillus crispatus+gasseri+jense patrick + Gardnerella vaginalis + Atopobium vaginae rRNA RICHARD+probe Ql (Vag fld) Not detected Normal Not detected [facility] Comment on above: Order Comment: Speci men Type: SWABOrdering Facility: [facility] Address: [address] [place] [address] Performed By: #### C VTV, BVAMP ####[facility] LABCLIA [id number] [place] [address] [place] Bilirubin Test strip Ql (U)O rdered By: Nena Méndez on 07-14-2024 Bilirubin Ql (U) Negative Negative [facility] IRENE/TRICHOMONAS NAATon 0 07-14-2024 C. glabrata RNA RICHARD+probe Ql (Vag fld) Not detected Normal Not detected [facility] Comment on above: Order Comment: Speci men Type: SWABOrdering Facility: [facility] Address: [address] [place] [address] Performed By: #### C VTV, BVAMP ####[facility] LABCLIA [id number] [address] [place] Irene sp DNA RICHARD+probe Ql (Vag fld) Not detected Normal Not detected [facility] Comment on above: Order Comment: Speci men Type: SWABOrdering Facility: [facility] Address: [address] [place] [address] Result Comment: The Irene species group target includes C. albicans, C. tropicalis, C. parapsilosis, and C. dubliniensis. Performed By: #### C VTV, BVAMP ####[facility] LABCLIA [id number] [address] OF [facility] T. vaginalis DNA RICHARD+probe Ql (Unsp spec) Not detected Normal Not detected [facility] Comment on above: Order Comment: Speci men Type: SWABOrdering Facility: [facility] Address: [address] [place] [address] Performed By: #### C VTV, BVAMP ####[facility] LABCLIA [id number] [place] [address] [place] Ketones Test strip Ql (U)Ord ered By: Nena Méndez on 07-14-2024 Ketones Ql (U) Negative Negative [facility] Microscopic analysis of urin e for red blood cells (RBC)Ordered By: Nena Méndez on 07-14-2024 Microscopic analysis of urine for red blood cells (RBC) 0 SEEN /hpf 0-5 [facility] Mucus LM Ql (Urine sed)Order ed By: Nena Méndez on 07-14-2024 Mucus Ql (Urine sed) 0 SEEN /hpf [facility] Nitrite Test strip Ql (U)Ord ered By: Nena Méndez on 07-14-2024 Nitrite Ql (U) Negative Negative [facility] OB Triage Physician Noteon 0 07-14-2024 OB Triage Physician Note [facility] Medical Records Department [address] [place] [address] OB Triage Physician Note 07/14/24 1630 MR#: [id number] Acct: [id number] Name: GREGG ZUNIGA SCOUT Rep #: [id number] : 2000 24 From: Milly Singh DO PCP: Care Physician,No Primary Status:REG CLI Y Location: [facility]7 HPI - General General Date of Admission: 07/14/24 Date of Service: 07/14/24 Chief Complaint: ctx's HPI Narrative GREGG ZUNIGA, is a 24 F who presents from the office with ctx's. Improved after PO hydration. Spotting yesterday and no bleeding since. No LOF. No urinary symptoms of changes in bowel movements. [facility] Medical History Physical exam, pre-employment Palpitations Chest [...] DO; No Primary Care Physician Signed Normal [facility] Protein Test strip Ql (U)Ord ered By: Nena Méndez on 07-14-2024 Protein Ql (U) 30 mg/dl High Negative [facility] Squamous epithelial cells de tection in urine sediment by light microscopyOrdered By: Nena Méndez on 07-14-2024 Epithelial cells.squamous LM Ql (Urine sed) 0-5 SEEN /hpf 5-10 [facility] Urinalysis, Completeon 07-14 WBC 0-5 SEEN Normal 0-5 [facility] Comment on above: Order Comment: CLEAN CATCH Performed By: #### L 503.7505, L504.2610, L501.2450, L100.0100, L500.4050 #### [facility] [address] [place], [address] AMORPHOUS 2+ Normal [facility] Comment on above: Order Comment: CLEAN CATCH Performed By: #### L 503.7505, L504.2610, L501.2450, L100.0100, L500.4050 #### [facility] [address] [place], [address] BACTERIA 2+ /hpf Normal None Seen [facility] Comment on above: Order Comment: CLEAN CATCH Performed By: #### L 503.7505, L504.2610, L501.2450, L100.0100, L500.4050 #### [facility] [address] [place], [address] EPI,SQUAMOUS 0-5 SEEN Normal 5-10 [facility] Comment on above: Order Comment: CLEAN CATCH Performed By: #### L 503.7505, L504.2610, L501.2450, L100.0100, L500.4050 #### [facility] [address] [place], [address] Mucus Ql (Urine sed) 0 SEEN Normal [facility] Comment on above: Order Comment: CLEAN CATCH Performed By: #### L 503.7505, L504.2610, L501.2450, L100.0100, L500.4050 #### [facility] [address] [place], [address] RBC 0 SEEN Normal 0-5 [facility] Comment on above: Order Comment: CLEAN CATCH Performed By: #### L 503.7505, L504.2610, L501.2450, L100.0100, L500.4050 #### [facility] [address] [place], [address] Urine clarityOrdered By: Madan Méndez on 07-14-2024 Clarity (U) Sl. Cloudy Clear [facility] Urine color determinationOrd ered By: Nena Méndez on 07-14-2024 Color (U) Yellow Yellow [facility] Urine cultureOrdered By: Mireille Singh on 07-14-2024 Bacteria identified Cx Nom (U) Positive Abnormal [facility] Urine glucose detectionOrder ed By: Nena Méndez on 07-14-2024 Glucose Ql (U) Normal mg/dl Normal [facility] Urine leukocyte esterase det ection by dipstickOrdered By: Nena Méndez on 07-14-2024 Leukocyte esterase Test strip Ql (U) 25 /ul High Negative [facility] Urine pHOrdered By: Nena Méndez on 07-14-2024 pH (U) 7.0 [pH] 5.0 - 8.0 [facility] Urine sediment bacteria coun t by microscopy (number/high power field)Ordered By: Nena Méndez on 07-14-2024 Bacteria LM.HPF (Urine sed) [#/Area] 2 /[HPF] None Seen [facility] Urine specific gravity measu rementOrdered By: Nena Méndez on 07-14-2024 Specific gravity (U) [Rel density] 1.015 1.002-1.030 [facility] Urine urobilinogen measureme ntOrdered By: Nena Méndez on 07-14-2024 Urobilinogen Ql (U) 4 mg/dl High Normal [facility] White blood cell countOrdere d By: Nena Méndez on 07-14-2024 White blood cell count 0-5 SEEN /hpf 0-5 [facility] CNPNon 07-10-2024 CNPN Telephone (OBGYWM) GREGG ZUNIGA ([id number]) 4 F Date Time Provider Department 07/10/24 NENA MÉNDEZ During your visit today, we recorded the following information about you: Katie Yusuf RN 07/10/2024 8:50 AM Signed Breast pump order received from [employer]. To CP to sign. PEACE Hou Trisha, [...] 1 tablet by mouth once daily. - cj276-cgpr-kzzkz acid ( 19) 29 mg iron- 1 [...] Encounter Status:Closed by KATIE YUSUF on [facility]10/[facility] C[facility]N Telephone (FV3L+D) GREGG ZUNIGA ([id number]) 4 F Date Time Provider Department 07/08/24 FLORIDALMA MASON OB LANDYolis FV3L+D During your visit today, we recorded the following information about you: Allergies As of Date: 07/08/2024 Noted Allergy Reaction ADHESIVE 10/23/2023 4 - Hives LACTOSE 10/23/2023 8 - GI Upset Date Reviewed: 07/07/2024 Reviewed by: Georgia Lino MD - Fully Assessed Reason for Visit: Care Coordination [5694] Cmt: Codi Consult Called pt for scheduled consult, no answer Prescriptions as of 07/08/2024 - pantoprazole DR (PROTONIX) 20 mg tablet Take 1 tablet by mouth once daily. - hw651-hkhh-vayyf acid ( 19) 29 mg iron- 1 [...] Status:Closed by BRENDA HENRIQUEZ on 07/08/24 Normal [facility] UA DIP, URINE (POC)on 2024 BILIRUBIN UA (POCT) Negative Negative [facility] CLARITY UA (POCT) Clear [facility] COLOR UA (POCT) Yellow [facility] GLUCOSE UA (POCT) Negative Negative mg/dL [facility] Hemoglobin Ql (U) Negative Negative [facility] Interpretation and review of laboratory results Abnormal [facility] KETONE UA (POCT) Negative Negative mg/dL [facility] LEUKOCYTES UA (POCT) Trace Abnormal Negative [facility] NITRITE UA (POCT) Negative Negative [facility] PH UA (POCT) 6.5 4.5 - 8.0 [facility] Protein Ql (U) Negative Negative mg/dL [facility] SPECIFIC GRAVITY UA (POCT) 1.015 1.005 - 1.030 [facility] UROBILINOGEN UA (POCT) 4 Abnormal Normal E.U./d L [facility] Location:[facility], [address] [facility], [place], [place], [address] [place] [address] POINT OF CARE [facility] CNPNon 06-17-2024 CNPN Telephone (OBGYWM) GREGG ZUNIGA ([id number]) 4 F Date Time Provider Department 06/17/24 [...] of range. Please advise and will send FanHerohart message to Pt with response. PEACE Osborn [...] Fully Assessed Reason for Visit: Patient Question [6277] Prescriptions as of 06/17/2024 - pantoprazole DR (PROTONIX) 20 mg tablet Take 1 tablet by mouth once daily. - uu858-rybs-bjkks acid ( 19) 29 mg iron- 1 [...] Status:Closed by MIKI YOU on 06/17/24 Normal [facility] OB Triage Physician Noteon 0 06-16-2024 OB Triage Physician Note [facility] Medical Records Department [address] [place] [address] OB Triage Physician Note 06/16/24 0607 MR#: [id number] Acct: [id number] Name: GREGG ZUNIGA Rep #: [id number] : 2000 24 From: Georgia Lino MD PCP: Care Physician,No Primary Status:DEP CLI Y Location: [facility] HPI - General General Date of [...] MD; No Primary Care Physician Signed Normal [facility] 12 Lead EKGon 06-15-2024 12 Lead EKG [facility] Cardiovascular Services [address] [place] [address] 12 Lead EKG 06/15/245 MR#: [id number] Acct: [id number] Name: GREGG ZUNIGA Rep #: [id number] : 2000 24 From: Rubio Paulino MD Attending Dr: Dr. Georgia Lino MD Status: D EP CLI Ordering Dr: Frankie Mcdaniel DO Date: 5 Location: [facility] Sex: F C Admitted: Test Reason : Blood Pressure : */* mmHG Vent. Rate : 85 BPM Atrial Rate : 85 BPM P-R Int : 138 ms QRS Dur : 70 ms QT Int : 344 ms P-R-T Axes : 41 57 38 degrees QTcB Int : 409 ms Normal sinus rhythm Normal ECG Confirmed by Rubio Paulino ([id number]), digital editor MINERVA HARRIS ([id number]) on 06/16/2024 1:15:49 PM Referred By: Georgia Lino Confirmed By: Rubio Paulino 06/16/24 1315 Date Rubio Paulino MD CC: Dr. Frankie Mcdaniel, ; Dr. Georgia Lino MD; No Primary Care Physician Signed Normal [facility] Absolute lymphocyte countOrd ered By: Frankie Mcdaniel on 06-15-2024 Lymphocytes Auto (Unsp spec) [#/Vol] 3.28 10*3/uL 0.83-4.51 [facility] Absolute neutrophil countOrd ered By: Frankie Mcdaniel on 06-15-2024 Neutrophils (Bld) [#/Vol] 9.9 10*3/uL High 2.0-7.7 [facility] Anion gap in Serum or Plasma Ordered By: Frankie Mcdaniel on 06-15-2024 Anion gap [Moles/Vol] 12 mmol/L 5-15 [facility] Automated lymphocyte count a s percentage of total leukocytesOrdered By: Frankie Mcdaniel on 06-15-2024 Lymphocytes/100 WBC Auto (Unsp spec) 21.7 % 19-41 [facility] BUN/creatinine ratioOrdered By: Frankie Mcdaniel on 06-15-2024 Urea nitrogen/Creatinine [Mass ratio] 5.0 mg/mg Low 10-20 [facility] Basophil percentageOrdered B y: Frankie Mcdaniel on 06-15-2024 Basophils/100 WBC (Bld) 0.3 % 0-1 [facility] Bilirubin Test strip Ql (U)O rdered By: Frankie Mcdaniel on 06-15-2024 Bilirubin Ql (U) Negative Negative [facility] Bilirubin, totalOrdered By: Frankie Mcdaniel on 06-15-2024 Bilirubin [Mass/Vol] 0.20 mg/dL 0.00-1.30 [facility] CBC W/Diff, Automatedon 06-03 Absolute Lymph 3.28 X10 3/uL Normal 0.83-4.51 [facility] Comment on above: Performed By: #### L 503.7505, L504.2610, L501.2450, L100.0100, L500.4050 #### [facility] [address] [place], [address] Absolute Neut 9.9 X10 3/uL High 2.0-7.7 [facility] Comment on above: Performed By: #### L 503.7505, L504.2610, L501.2450, L100.0100, L500.4050 #### [facility] [address] [place], [address] Basophils/100 WBC (Bld) 0.3 % Normal 0-1 [facility] Comment on above: Performed By: #### L 503.7505, L504.2610, L501.2450, L100.0100, L500.4050 #### [facility] [address] [place], [place], [address] Eosinophils/100 WBC (Bld) 4.9 % Normal 0-5 [facility] Comment on above: Performed By: #### L 503.7505, L504.2610, L501.2450, L100.0100, L500.4050 #### [facility] [address] [place], [address] Erythrocyte distribution width (RBC) [Ratio] 13.6 % Normal 11.6-14.6 [facility] Comment on above: Performed By: #### L 503.7505, L504.2610, L501.2450, L100.0100, L500.4050 #### [facility] [address] [place], [address] Hematocrit (Bld) [Volume fraction] 38.5 % Normal 37-47 [facility] Comment on above: Performed By: #### L 503.7505, L504.2610, L501.2450, L100.0100, L500.4050 #### [facility] [address] [place], [address] Hemoglobin (Bld) [Mass/Vol] 12.9 g/dL Normal 12.0-15.0 [facility] Comment on above: Performed By: #### L 503.7505, L504.2610, L501.2450, L100.0100, L500.4050 #### [facility] [address] [place], [address] IG% 1.300 High 0.0-0.9 [facility] Comment on above: Result Comment: IG% - Immature Granulocytes (promyelocytes, myelocytes and metamyelocytes) > 1% indicates that a LEFT SHIFT is Present. Performed By: #### L 503.7505, L504.2610, L501.2450, L100.0100, L500.4050 #### [facility] [address] [place], [address] Lymphocytes/100 WBC (Bld) 21.7 % Normal 19-41 [facility] Comment on above: Performed By: #### L 503.7505, L504.2610, L501.2450, L100.0100, L500.4050 #### [facility] [address] [place], [address] MCH (RBC) [Entitic mass] 30.9 pg Normal 27.0-32.0 [facility] Comment on above: Performed By: #### L 503.7505, L504.2610, L501.2450, L100.0100, L500.4050 #### [facility] [address] [place], [address] MCHC (RBC) [Mass/Vol] 33.5 g/dL Normal 32-36 [facility] Comment on above: Performed By: #### L 503.7505, L504.2610, L501.2450, L100.0100, L500.4050 #### [facility] [address] [place], [address] MCV (RBC) [Entitic vol] 92.3 fL Normal 81-99 [facility] Comment on above: Performed By: #### L 503.7505, L504.2610, L501.2450, L100.0100, L500.4050 #### [facility] [address] [place], [address] Monocytes/100 WBC (Bld) 6.4 % Normal 0-10 [facility] Comment on above: Performed By: #### L 503.7505, L504.2610, L501.2450, L100.0100, L500.4050 #### [facility] [address] [place], [address] Neutrophils/100 WBC (Bld) 65.4 % Normal 47-70 [facility] Comment on above: Performed By: #### L 503.7505, L504.2610, L501.2450, L100.0100, L500.4050 #### [facility] [address] [place], [address] Nucleated RBC (Bld) [#/Vol] 0 10*3/uL Normal 0-5 [facility] Comment on above: Performed By: #### L 503.7505, L504.2610, L501.2450, L100.0100, L500.4050 #### [facility] [address] [place], [address] Platelet mean volume (Bld) [Entitic vol] 10.2 fL Normal 6.2-12.0 [facility] Comment on above: Performed By: #### L 503.7505, L504.2610, L501.2450, L100.0100, L500.4050 #### [facility] [address] [place], [address] Platelets (Bld) [#/Vol] 264 10*3/uL Normal 150-450 [facility] Comment on above: Performed By: #### L 503.7505, L504.2610, L501.2450, L100.0100, L500.4050 #### [facility] [address] [place], [address] RBC (Bld) [#/Vol] 4.17 10*6/uL Low 4.2-5.4 [facility] Comment on above: Performed By: #### L 503.7505, L504.2610, L501.2450, L100.0100, L500.4050 #### [facility] [address] [place], [address] RDW SD 45.6 fl High 35.1-43.9 [facility] Comment on above: Performed By: #### L 503.7505, L504.2610, L501.2450, L100.0100, L500.4050 #### [facility] [address] [place], [address] WBC (Bld) [#/Vol] 15.1 10*3/uL High 4.4-11.0 [facility] Comment on above: Performed By: #### L 503.7505, L504.2610, L501.2450, L100.0100, L500.4050 #### [facility] [address] [place], [place], [address] CTA Chest W/WO Contraston CTA Chest W/WO Contrast [facility] Imaging Services [address] [place] [address] CTA Chest W/WO Contrast MR#: [id number] Acct: [id number] Name: GRGEG ZUNIGA Rep #: [id number] : 2000 F 24 From: Joshua Dawson PCP: Care Physician,No Primary Status: REG ER Study: CTA Chest W/WO Contrast Date of Exam: 06/15/24 Exam# [id number] Ordering Dr: Frankie Mcdaniel DO PROCEDURE: CTA [...] 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 Sales Representative Advertising: Signed Normal [facility] Carbon dioxide, total [Moles /volume] in Central venous bloodOrdered By: Frankie Mcdaniel on 06-15-2024 CO2 [Moles/Vol] 20.9 mmol/L Low 21.0-32.0 [facility] Chloride assayOrdered By: Joseph Mcdaniel on 06-15-2024 Chloride [Moles/Vol] 104 mmol/L 98-108 [facility] Comprehensive Metabolic Prof ilon 06-15-2024 Albumin [Mass/Vol] 3.8 g/dL Normal 3.5-5.0 [facility] Comment on above: Performed By: #### L 503.7505, L504.2610, L501.2450, L100.0100, L500.4050 #### [facility] [address] [place], [address] Albumin/Globulin [Mass ratio] 1.5 {ratio} Normal 0.9-2.4 [facility] Comment on above: Performed By: #### L 503.7505, L504.2610, L501.2450, L100.0100, L500.4050 #### [facility] [address] [place], [address] ALK PHOS 84 U/L Normal 35-104 [facility] Comment on above: Performed By: #### L 503.7505, L504.2610, L501.2450, L100.0100, L500.4050 #### [facility] [address] [place], [address] ALT [Catalytic activity/Vol] 8 U/L Normal <=34 [facility] Comment on above: Performed By: #### L 503.7505, L504.2610, L501.2450, L100.0100, L500.4050 #### [facility] [address] [place], [address] AST [Catalytic activity/Vol] 14 U/L Normal <=31 [facility] Comment on above: Performed By: #### L 503.7505, L504.2610, L501.2450, L100.0100, L500.4050 #### [facility] [address] [place], [address] Bilirubin [Mass/Vol] 0.20 mg/dL Normal 0.00-1.30 [facility] Comment on above: Performed By: #### L 503.7505, L504.2610, L501.2450, L100.0100, L500.4050 #### [facility] [address] [place], [address] BUN/CRE 5.0 RATIO Low 10-20 [facility] Comment on above: Performed By: #### L 503.7505, L504.2610, L501.2450, L100.0100, L500.4050 #### [facility] [address] [place], [address] Calcium [Mass/Vol] 9.0 mg/dL Normal 7.6-11.0 [facility] Comment on above: Performed By: #### L 503.7505, L504.2610, L501.2450, L100.0100, L500.4050 #### [facility] [address] [place], [address] Chloride [Moles/Vol] 104 mmol/L Normal 98-108 [facility] Comment on above: Performed By: #### L 503.7505, L504.2610, L501.2450, L100.0100, L500.4050 #### [facility] [address] [place], [address] CO2 [Moles/Vol] 20.9 mmol/L Low 21.0-32.0 [facility] Comment on above: Performed By: #### L 503.7505, L504.2610, L501.2450, L100.0100, L500.4050 #### [facility] [address] [place], [address] Creatinine [Mass/Vol] 0.88 mg/dL Normal 0.70-1.20 [facility] Comment on above: Performed By: #### L 503.7505, L504.2610, L501.2450, L100.0100, L500.4050 #### [facility] [address] [place], [address] ECRCL 91.07 ml/min Normal 50-250 [facility] Comment on above: Performed By: #### L 503.7505, L504.2610, L501.2450, L100.0100, L500.4050 #### [facility] [address] [place], [address] GAP 12 Normal 5-15 [facility] Comment on above: Performed By: #### L 503.7505, L504.2610, L501.2450, L100.0100, L500.4050 #### [facility] [address] [place], [address] GFR/1.73 sq M.predicted among non-blacks MDRD (S/P/Bld) [Vol rate/Area] 95 mL/min/{1.73_m2} Normal >60 [facility] Comment on above: Result Comment: mL/m in/1.73m2 CKD-EPI Creatinine Equation (2020) Performed By: #### L 503.7505, L504.2610, L501.2450, L100.0100, L500.4050 #### [facility] [address] [place], [address] Globulin (S) [Mass/Vol] 2.6 g/dL Normal 2.2-4.2 [facility] Comment on above: Performed By: #### L 503.7505, L504.2610, L501.2450, L100.0100, L500.4050 #### [facility] [address] [place], [address] Glucose [Mass/Vol] 86 mg/dL Normal 70-99 [facility] Comment on above: Performed By: #### L 503.7505, L504.2610, L501.2450, L100.0100, L500.4050 #### [facility] [address] [place], [address] Potassium [Moles/Vol] 3.2 mmol/L Low 3.3-5.1 [facility] Comment on above: Performed By: #### L 503.7505, L504.2610, L501.2450, L100.0100, L500.4050 #### [facility] [address] [place], [address] Sodium [Moles/Vol] 137 mmol/L Normal 133-145 [facility] Comment on above: Performed By: #### L 503.7505, L504.2610, L501.2450, L100.0100, L500.4050 #### [facility] [address] [place], [address] T PROT 6.4 g/dL Normal 5.9-8.4 [facility] Comment on above: Performed By: #### L 503.7505, L504.2610, L501.2450, L100.0100, L500.4050 #### [facility] [address] [place], [address] Urea nitrogen [Mass/Vol] 4 mg/dL Normal 4-19 [facility] Comment on above: Performed By: #### L 503.7505, L504.2610, L501.2450, L100.0100, L500.4050 #### [facility] [address] [place], [address] Emergency Department Summary on 06-15-2024 Emergency Department Summary [facility] Medical Records Department [address] [place] [address] Emergency Department Summary 06/15/24 MR#: [id number] Acct: [id number] Name: GREGG ZUNIGA Rep #: [id number] : 2000 24 From: Frankie Mcdaniel DO PCP: Care Physician,No Primary Status:DEP CLI Location: [facility] HPI History of Present Illness Chief Complaint: Shortness of Breath Narrative Narrative: Chief complaint and HPI: 24-year-old female who is G1, P0 and 29 weeks who follows with [facility] [employer]ICARE COMPLIANCE AUDITOR presents for evaluation of shortness of breath and abdominal cramping. Patient states she received RhoGAM shot on Sunday given that she is O-. She states since then she has had increased shortness of breath and intermittent abdominal/pelvic cramping. She denies any vaginal bleeding or discharge. Shortness of breath is worse with exertion and walking. She states that she attempted to call the MEDICARE COMPLIANCE AUDITOR but did not get a return call [...] intact Psych: Cooperative, appropriate mood and affect [facility] Medical History Physical exam, pre-employment Palpitations Chest [...] Blood Pressur (more content not included)... Normal [facility] Eosinophil percentageOrdered By: Frankie Mcdaniel on 06-15-2024 Eosinophils/100 WBC (Bld) 4.9 % 0-5 [facility] Epithelial cells.squamous LM Ql (Urine sed)Ordered By: Frankie Mcdaniel on 06-15-2024 Epithelial cells.squamous LM.HPF (Urine sed) [#/Area] 0 /[HPF] 5-10 [facility] Erythrocyte distribution wid th (RBC) [Ratio]Ordered By: Frankie Mcdaniel on 06-15-2024 Erythrocyte distribution width (RBC) [Entitic vol] 45.6 fL High 35.1-43.9 [facility] Erythrocyte distribution wid th ratioOrdered By: Enfield Violeta on 06-15-2024 Erythrocyte distribution width (RBC) [Ratio] 13.6 % 11.6-14.6 [facility] Erythrocyte distribution wid th standard deviationOrdered By: Frankie Abram Tanner on 06-15-2024 Erythrocyte distribution width (RBC) [Ratio] 45.6 fl High 35.1-43.9 [facility] Estimation of creatinine yaniv aranceOrdered By: Frankie Mcdaniel on 06-15-2024 Estimated Creatinine Clearance Calc 91.07 ml/min 50-250 [facility] GFR/1.73 sq M.predicted robyn g non-blacks MDRD (S/P/Bld) [Vol rate/Area]Ordered By: Frankie Mcdaniel on 06-15-2024 Estimated GFR (MDRD) Non-Af Amer 95 >60 [facility] Comment on above: mL/min/1.73m2 CKD-EP I Creatinine Equation (2020) Glomerular filtration rate ( GFR) estimation/1.73 sq m using serum, plasma, or whole bOrdered By: Frankie Mcdaniel on 06-15-2024 GFR/1.73 sq M.predicted among non-blacks MDRD (S/P/Bld) [Vol rate/Area] 95 mL/min/{1.73_m2} >60 [facility] Comment on above: mL/min/1.73m2 CKD-EP I Creatinine Equation (2020) Glucose Ql (U)Ordered By: Joseph Mcdaniel on 06-15-2024 Urine Glucose (UA) Normal mg/dl Normal [facility] Hematocrit Auto (Bld) [Volum e fraction]Ordered By: Frankie Mcdaniel on 06-15-2024 Hematocrit (Bld) [Volume fraction] 38.5 % 37-47 [facility] Hemoglobin measurementOrdere d By: Frankie AbramFlores on 06-15-2024 Hemoglobin (Bld) [Mass/Vol] 12.9 g/dL 12.0-15.0 [facility] Immature granulocytes/100 WB C Auto (Bld)Ordered By: [facility] on 06-15-2024 Immature granulocytes/100 WBC (Bld) 1.300 % High 0.0-0.9 [facility] Comment on above: IG% - Immature Granu locytes (promyelocytes, myelocytes and metamyelocytes) > 1% indicates that a LEFT SHIFT is Present. Ketones Test strip Ql (U)Ord ered By: Frankie Mcdaniel on 06-15-2024 Ketones Ql (U) Negative Negative [facility] L499.0042on 06-15-2024 Trop T High Sen Normal <=14 [facility] Comment on above: Result Comment: Nestor russell via OM: Ordered Performed By: #### L 503.7505, L504.2610, L501.2450, L100.0100, L500.4050 #### [facility] [address] [place], [address] L501.4021on 06-15-2024 Trop T High Sen < 6 Normal <=14 [facility] Comment on above: Performed By: #### L 503.7505, L504.2610, L501.2450, L100.0100, L500.4050 #### [facility] [address] [place], [address] L503.7505on 06-15-2024 Natriuretic peptide B (Bld) [Mass/Vol] 59 pg/mL Normal <=450 [facility] Comment on above: Result Comment: Hear t Failure Unlikely: < 300 pg/mL Heart Failure Likely < 50 Years: > 450 pg/mL 50-75 Years: > 900 pg/mL >75 Years: > 1800 pg/mL Performed By: #### L 503.7505, L504.2610, L501.2450, L100.0100, L500.4050 #### [facility] [address] [place], [place], [address] LDHon 06-15-2024 LDH 169 U/L Normal 84-246 [facility] Comment on above: Performed By: #### L 503.7505, L504.2610, L501.2450, L100.0100, L500.4050 #### [facility] [address] [place], [place], [address] Laboratory - Chemistry and C hemistry - challengeOrdered By: Frankie Mcdaniel on 06-15-2024 AST [Catalytic activity/Vol] 14 U/L <32 [facility] Lactate dehydrogenase (LDH) measurementOrdered By: Frankiestarla Mcdaniel on 06-15-2024 LDH [Catalytic activity/Vol] 169 U/L 84-246 [facility] Lipaseon 06-15-2024 Lipase [Catalytic activity/Vol] 26 U/L Normal 13-75 [facility] Comment on above: Result Comment: Bacilio casarez note: LIPASE revised reference range effective 22. New Lipase methodology. Expected to produce lower values than the previous assay method. NEW Reference Range: 13 - 75 U/L Performed By: #### L 503.7505, L504.2610, L501.2450, L100.0100, L500.4050 #### [facility] [place], [address] Lipase measurementOrdered By : Frankie Mcdaniel on 06-15-2024 Lipase [Catalytic activity/Vol] 26 U/L 13-75 [facility] Comment on above: Please note:LIPASE r evised reference range effective 22. New Lipase methodology. Expected to produce lower values than the previous assay method. NEW Reference Range: 13 - 75 U/L Lymphocytes Auto (Unsp spec) [#/Vol]Ordered By: Frankie Mcdaniel on 06-15-2024 Lymphocytes (Bld) [#/Vol] 3.28 10*3/uL 0.83-4.51 [facility] Lymphocytes/100 WBC Auto (Un sp spec)Ordered By: Frankie Mcdaniel on 06-15-2024 Lymphocytes/100 WBC (Bld) 21.7 % 19-41 [facility] MCV (mean corpuscular volume ) determinationOrdered By: Frankie Mcdaniel on 06-15-2024 MCV (RBC) [Entitic vol] 92.3 fL 81-99 [facility] Mean corpuscular hemoglobin (MCH) determinationOrdered By: Enfield Violeta on 06-15-2024 MCH (RBC) [Entitic mass] 30.9 pg 27.0-32.0 [facility] Mean corpuscular hemoglobin concentration (MCHC) determinationOrdered By: Enfield Violeta on 06-15-2024 MCHC (RBC) [Mass/Vol] 33.5 g/dL 32-36 [facility] Mean platelet volume determi nationOrdered By: Frankie Mcdaniel on 06-15-2024 Platelet mean volume (Bld) [Entitic vol] 10.2 fL 6.2-12.0 [facility] Microscopic analysis of urin e for red blood cells (RBC)Ordered By: Frankie Mcdaniel on 06-15-2024 Microscopic analysis of urine for red blood cells (RBC) 0 SEEN /hpf 0-5 [facility] Urine RBC 0 SEEN /hpf 0-5 [facility] Monocyte percentageOrdered B y: Frankie Mcdaniel on 06-15-2024 Monocytes/100 WBC (Bld) 6.4 % 0-10 [facility] Mucus LM Ql (Urine sed)Order ed By: Frankie Mcdaniel on 06-15-2024 Mucus Ql (Urine sed) 0 SEEN /hpf [facility] Natriuretic peptide.B prohor nathaly N-Terminal [Mass/Vol]Ordered By: Frankie Mcdaniel on 06-15-2024 Natriuretic peptide B (Bld) [Mass/Vol] 59 pg/mL <450 [facility] Comment on above: Heart Failure Unlike ly: < 300 pg/mLHeart Failure Likely< 50 Years: > 450 pg/mL50-75 Years: > 900 pg/mL>75 Years: > 1800 pg/mL Natriuretic peptide.B prohor nathaly N-Terminal [Mass/volume] in Serum or PlasmaOrdered By: Frankie Mcdaniel on 06-15-2024 Natriuretic peptide.B prohormone N-Terminal [Mass/Vol] 59 pg/mL <450 [facility] Comment on above: Heart Failure Unlike ly: < 300 pg/mLHeart Failure Likely< 50 Years: > 450 pg/mL50-75 Years: > 900 pg/mL>75 Years: > 1800 pg/mL Neutrophil percentageOrdered By: Frankie Mcdaniel on 06-15-2024 Neutrophils/100 WBC (Bld) 65.4 % 47-70 [facility] Nitrite Test strip Ql (U)Ord ered By: Frankie Mcdaniel on 06-15-2024 Nitrite Ql (U) Negative Negative [facility] Nucleated red blood cell per centageOrdered By: Frankie Mcdaniel on 06-15-2024 Nucleated RBC/100 WBC (Bld) [Ratio] 0 % 0-5 [facility] Platelet countOrdered By: Joseph Mcdaniel on 06-15-2024 Platelets (Bld) [#/Vol] 264 10*3/uL 150-450 [facility] Potassium (Unsp spec) [Mass/ Vol]Ordered By: Frankie Mcdaniel on 06-15-2024 Potassium [Moles/Vol] 3.2 mmol/L Low 3.3-5.1 [facility] Potassium measurement (mass/ volume)Ordered By: Frankie Mcdaniel on 06-15-2024 Potassium (Unsp spec) [Mass/Vol] 3.2 mmol/L Low 3.3-5.1 [facility] Protein Test strip Ql (U)Ord ered By: Frankie Mcdaniel on 06-15-2024 Protein Ql (U) 15 mg/dl High Negative [facility] RBC Auto (Bld) [#/Vol]Ordere d By: Frankie Mcdaniel on 06-15-2024 RBC (Bld) [#/Vol] 4.17 10*6/uL Low 4.2-5.4 [facility] Serum creatinine measurement (mass/volume)Ordered By: Frankie Mcdaniel on 06-15-2024 Creatinine [Mass/Vol] 0.88 mg/dL 0.70-1.20 [facility] Serum globulin measurementOr dered By: Frankie Mcdaniel on 06-15-2024 Globulin (S) [Mass/Vol] 2.6 g/dL 2.2-4.2 [facility] Serum glucose measurement (m ass/volume)Ordered By: Frankie Mcdaniel on 06-15-2024 Glucose [Mass/Vol] 86 mg/dL 70-99 [facility] Serum or plasma alanine bobo otransferase (ALT) measurementOrdered By: Frankie Mcdaniel on 06-15-2024 ALT [Catalytic activity/Vol] 8 U/L <35 [facility] Serum or plasma albumin noa urement (mass/volume)Ordered By: Frankie Tanner on 06-15-2024 Albumin [Mass/Vol] 3.8 g/dL 3.5-5.0 [facility] Serum or plasma albumin/glob ulin mass ratioOrdered By: Frankie Mcdaniel on 06-15-2024 Albumin/Globulin [Mass ratio] 1.5 {ratio} 0.9-2.4 [facility] Serum or plasma alkaline nancy sphatase measurementOrdered By: Frankie Mcdaniel on 06-15-2024 ALP [Catalytic activity/Vol] 84 U/L 35-104 [facility] Serum or plasma calcium noa urement (mass/volume)Ordered By: Frankie Tanner on 06-15-2024 Calcium [Mass/Vol] 9.0 mg/dL 7.6-11.0 [facility] Serum or plasma urea nitroge n measurement (mass/volume)Ordered By: Frankie Mcdaniel on 06-15-2024 Urea nitrogen [Mass/Vol] 4 mg/dL 4-19 [facility] Sodium levelOrdered By: Jeff Mcdaniel on 06-15-2024 Sodium [Moles/Vol] 137 mmol/L 133-145 [facility] Squamous epithelial cells de tection in urine sediment by light microscopyOrdered By: Frankie Mcdaniel on 06-15-2024 Epithelial cells.squamous LM Ql (Urine sed) 0-5 SEEN /hpf 5-10 [facility] Total proteinOrdered By: Jc Mcdaniel on 06-15-2024 Protein [Mass/Vol] 6.4 g/dL 5.9-8.4 [facility] Troponin T.cardiac High sens itivity method [Mass/Vol]Ordered By: Frankie Tanner on 06-15-2024 Troponin T High Sensitivity < 6 ng/L <14 [facility] Troponin T.cardiac [Mass/vol ume] in Serum or Plasma by High sensitivity methodOrdered By: Frankie Mcdaniel on 06-15-2024 Troponin T.cardiac High sensitivity method [Mass/Vol] < 6 ng/L <14 [facility] Urinalysis, Completeon 06-15 EPI,SQUAMOUS 0-5 SEEN Normal 5-10 [facility] Comment on above: Order Comment: CLEAN CATCH Performed By: #### L 400.0001 #### [facility] [address] [place], [place], [id number] BACTERIA 0 SEEN Normal None Seen [facility] Comment on above: Order Comment: CLEAN CATCH Performed By: #### L 400.0001 #### [facility] [address] [place], [address] Mucus Ql (Urine sed) 0 SEEN Normal [facility] Comment on above: Order Comment: CLEAN CATCH Performed By: #### L 400.0001 #### [facility] [address] [place], [address] RBC 0 SEEN Normal 0-5 [facility] Comment on above: Order Comment: CLEAN CATCH Performed By: #### L 400.0001 #### [facility] [address] [place], [address] WBC 0 SEEN Normal 0-5 [facility] Comment on above: Order Comment: CLEAN CATCH Performed By: #### L 400.0001 #### [facility] [address] [place], [place], [id number] Urine blood detectionOrdered By: Frankie Mcdaniel on 06-15-2024 Urine Occult Blood Negative Negative [facility] Urine clarityOrdered By: Jc Mcdaniel on 06-15-2024 Clarity (U) Sl. Cloudy Clear [facility] Urine color determinationOrd ered By: Frankie Mcdaniel on 06-15-2024 Color (U) Yellow Yellow [facility] Urine glucose detectionOrder ed By: Frankie Mcdaniel on 06-15-2024 Glucose Ql (U) Normal mg/dl Normal [facility] Urine leukocyte esterase det ection by dipstickOrdered By: Frankie Mcdaniel on 06-15-2024 Leukocyte esterase Test strip Ql (U) Negative Negative [facility] Urine pHOrdered By: Frankie Darnell on 06-15-2024 pH (U) 7.0 [pH] 5.0 - 8.0 [facility] Urine sediment bacteria coun t by microscopy (number/high power field)Ordered By: Frankie Mcdaniel on 06-15-2024 Bacteria LM.HPF (Urine sed) [#/Area] 0 /[HPF] None Seen [facility] Urine specific gravity measu rementOrdered By: Frankie Mcdaniel on 06-15-2024 Specific gravity (U) [Rel density] 1.005 1.002-1.030 [facility] Urine urobilinogen measureme ntOrdered By: Frankie Mcdaniel on 06-15-2024 Urobilinogen Ql (U) Normal mg/dl Normal [facility] Urobilinogen Ql (U)Ordered B y: Frankie Mcdaniel on 06-15-2024 Urine Urobilinogen Normal mg/dl Normal [facility] White blood cell (WBC) count Ordered By: Frankie Mcdaniel on 06-15-2024 WBC (Bld) [#/Vol] 15.1 10*3/uL High 4.4-11.0 [facility] White blood cell countOrdere d By: Frankie Mcdaniel on 06-15-2024 Urine WBC 0 SEEN /hpf 0-5 [facility] White blood cell count 0 SEEN /hpf 0-5 [facility] CBC W Auto Differential pane l (Bld)on 06-13-2024 Basophils (Bld) [#/Vol] 0.04 10*3/uL Normal <0.11 [facility] Comment on above: Order Comment: Speci men Type: BLOOD SPECIMEN Ordering Facility: [facility] Address: [address] [place] [address] Performed By: #### 5 7021-8 #### [facility] CLIA [id number] [address] [place] [address] [place] Basophils/100 WBC (Bld) 0.3 % Normal C [facility] Comment on above: Order Comment: Speci men Type: BLOOD SPECIMEN Ordering Facility: [facility] Address: [address] [place] [id number] Performed By: #### 5 7021-8 #### [facility] [facility] CLIA [id number] [address] [place] [address] [place] Differential cell count method Nom (Bld) Auto Normal [facility] Comment on above: Order Comment: Speci men Type: BLOOD SPECIMEN Ordering Facility: [facility] Address: [address] [place] [address] Performed By: #### 5 7021-8 #### [facility] CLIA [id number] [address] [place] [address] [place] Eosinophils (Bld) [#/Vol] 0.47 10*3/uL High <0.46 [facility] Comment on above: Order Comment: Speci men Type: BLOOD SPECIMEN Ordering Facility: [facility] Address: [address] [place] [address] Performed By: #### 5 7021-8 #### [facility] CLIA [id number] [address] [place] [address] [place] Eosinophils/100 WBC (Bld) 3.5 % Normal [facility] Comment on above: Order Comment: Speci men Type: BLOOD SPECIMEN Ordering Facility: [facility] Address: [address] [place] [address] Performed By: #### 5 7021-8 #### [facility] CLIA [id number] [address] [place] [address] [place] Erythrocyte distribution width (RBC) [Ratio] 13.7 % Normal 11.5-15.0 [facility] Comment on above: Order Comment: Speci men Type: BLOOD SPECIMEN Ordering Facility: [facility] Address: [address] [place] [address] Performed By: #### 5 7021-8 #### [facility] CLIA [id number] [address] [place] [address] [place] Hematocrit (Bld) [Volume fraction] 37.4 % Normal 36.0-46.0 [facility] Comment on above: Order Comment: Speci men Type: BLOOD SPECIMEN Ordering Facility: [facility] Address: [address] [place] [address] Performed By: #### 5 7021-8 #### [facility] CLIA [id number] [address] [place] [address] [place] Hemoglobin (Bld) [Mass/Vol] 13.1 g/dL Normal 11.5-15.5 [facility] Comment on above: Order Comment: Speci men Type: BLOOD SPECIMEN Ordering Facility: [facility] Address: [address] [place] [address] Performed By: #### 5 7021-8 #### [facility] CLIA [id number] [address] [place] [address] [place] Immature granulocytes (Bld) [#/Vol] 0.35 10*3/uL High <0.10 [facility] Comment on above: Order Comment: Speci men Type: BLOOD SPECIMEN Ordering Facility: [facility] Address: [address] [place] [address] Performed By: #### 5 7021-8 #### [facility] CLIA [id number] [address] [place] [address] [place] Immature granulocytes/100 WBC (Bld) 2.6 % Normal [facility] Comment on above: Order Comment: Speci men Type: BLOOD SPECIMEN Ordering Facility: [facility] Address: [address] [place] [address] Performed By: #### 5 7021-8 #### [facility] CLIA [id number] [address] [place] [address] [place] Lymphocytes (Bld) [#/Vol] 2.24 10*3/uL Normal 1.00-4.00 [facility] Comment on above: Order Comment: Speci men Type: BLOOD SPECIMEN Ordering Facility: [facility] Address: [address] [place] [address] Performed By: #### 5 7021-8 #### [facility] CLIA [id number] [address] [place] [address] [place] Lymphocytes/100 WBC (Bld) 16.7 % Normal [facility] Comment on above: Order Comment: Speci men Type: BLOOD SPECIMEN Ordering Facility: [facility] Address: [address] [place] [address] Performed By: #### 5 7021-8 #### [facility] CLIA [id number] [address] [place] [address] [place] MCH (RBC) [Entitic mass] 31.6 pg Normal 26.0-34.0 [facility] Comment on above: Order Comment: Speci men Type: BLOOD SPECIMEN Ordering Facility: [facility] Address: [address] [place] [address] Performed By: #### 5 7021-8 #### [id number] [address] [place] [address] [place] MCHC (RBC) [Mass/Vol] 35.0 g/dL Normal 30.5-36.0 [facility] Comment on above: Order Comment: Speci men Type: BLOOD SPECIMEN Ordering Facility: [facility] Address: [address] [place] [address] Performed By: #### 5 7021-8 #### [facility] [id number] [address] [place] [address] [place] MCV (RBC) [Entitic vol] 90.1 fL Normal 80.0-100.0 C [facility] Comment on above: Order Comment: Speci men Type: BLOOD SPECIMEN Ordering Facility: [facility] Address: [address] [place], [place] [address] Performed By: #### 5 7021-8 #### [facility] [id number] [address] [place] [address] [place] Monocytes (Bld) [#/Vol] 0.90 10*3/uL High <0.87 [facility] Comment on above: Order Comment: Speci men Type: BLOOD SPECIMEN Ordering Facility: [facility] Address: [address] [place] [address] Performed By: #### 5 7021-8 #### [facility] CLIA [id number] [address] [place] [address] [place] Monocytes/100 WBC (Bld) 6.7 % Normal C [facility] Comment on above: Order Comment: Speci men Type: BLOOD SPECIMEN Ordering Facility: [facility] Address: [address] [place] [address] Performed By: #### 5 7021-8 #### [facility] CLIA [id number] [address] [place] [address] [place] Neutrophils (Bld) [#/Vol] 9.38 10*3/uL High 1.45-7.50 [facility] Comment on above: Order Comment: Speci men Type: BLOOD SPECIMEN Ordering Facility: [facility] Address: [address] [place] [address] Performed By: #### 5 7021-8 #### [facility] CLIA [id number] [address] [place] [address] [place] Neutrophils/100 WBC (Bld) 70.2 % Normal [facility] Comment on above: Order Comment: Speci men Type: BLOOD SPECIMEN Ordering Facility: [facility] Address: [address] [place] [address] Performed By: #### 5 7021-8 #### [facility] CLIA [id number] [address] [place] [address] [place] Nucleated RBC (Bld) [#/Vol] 10*3/uL Normal <0.01 [facility] Comment on above: Order Comment: Speci men Type: BLOOD SPECIMEN Ordering Facility: [facility] Address: [address] [place] [address] Performed By: #### 5 7021-8 #### [facility] CLIA [id number] [address] [place] [address] [place] Nucleated RBC/100 WBC (Bld) [Ratio] 0.0 /100 WBC Normal [facility] Comment on above: Order Comment: Speci men Type: BLOOD SPECIMEN Ordering Facility: [facility] Address: [address] [place] [address] Performed By: #### 5 7021-8 #### [facility] CLIA [id number] [address] [place] [address] [place] Platelet mean volume (Bld) [Entitic vol] 9.6 fL Normal 9.0-12.7 [facility] Comment on above: Order Comment: Speci men Type: BLOOD SPECIMEN Ordering Facility: [facility] Address: [address] [place] [address] Performed By: #### 5 7021-8 #### [facility] CLIA [id number] [address] [place] [address] [place] Platelets (Bld) [#/Vol] 241 10*3/uL Normal 150-400 [facility] Comment on above: Order Comment: Speci men Type: BLOOD SPECIMEN Ordering Facility: [facility] Address: [address] [place] [address] Performed By: #### 5 7021-8 #### [facility] CLIA [id number] [address] [place] [address] [place] RBC (Bld) [#/Vol] 4.15 10*6/uL Normal 3.90-5.20 [facility] Comment on above: Order Comment: Speci men Type: BLOOD SPECIMEN Ordering Facility: [facility] Address: [address] [place] [address] Performed By: #### 5 7021-8 #### [facility] CLIA [id number] [address] [place] [address] [place] WBC (Bld) [#/Vol] 13.38 10*3/uL High 3.70-11.00 [facility] Comment on above: Order Comment: Speci jhonny Type: BLOOD SPECIMEN Ordering Facility: [facility] Address: [address] [place] [address] Performed By: #### 5 7021-8 #### [facility] CLIA [id number] [address] [place] [address] [place] GESTATIONAL GLUCOSE SCREEN, 1-HOUR, 50 GRAM, NON-FASTINGon 06-13-2024 Glucose [Mass/Vol] 102 mg/dL Normal 74-134 [facility] Comment on above: Order Comment: Hilda barry Type: BLOOD SPECIMEN Ordering Facility: [facility] Address: [address] [place] [address] Result Comment: [facility] Congress of Obstetricians and Gynecologists (Snyder/Coustan) guidelines state a gestational diabetes mellitus positive screen is made, in women not previously diagnosed with overt diabetes, when the 1 hr plasma glucose level is equal to or above 140 mg/dL. The [facility] [employer] [facility] recommends a 135 mg/dL cutoff. Performed By: #### 5 195-3, 18072-8, 26861-1 #### [facility] CLIA [id number] [address] [place], [place] [address] [address] [place] Reagin and Treponema pallidu m IgG and IgM [Interp]on 06-13-2024 T. pallidum IgG+IgM IA Ql (S) Non-Reactive Normal Nonreactive [facility] Comment on above: Order Comment: Hilda barry Type: BLOOD SPECIMENOrdering Facility: [facility] Address: [address] [place] [address] Performed By: #### 7 3752-8 ####[facility] [id number] [facility] [place] [address] [place] Reagin+T pallidum IgG+IgM Se rPl-Impon 06-13-2024 Reagin and Treponema pallidum IgG and IgM [Interp] Cannot exclude recent Treponemal infection if specimen collected within 7-10 days after appearance of suspect lesions or 2-3 weeks after an exposure. Clinical correlation is required. Normal [facility] Comment on above: Order Comment: Speci men Type: BLOOD SPECIMENOrdering Facility: [facility] Address: [address] [place] [address] Performed By: #### 7 3752-8 ####[facility] [id number] [place] [address] [place] TYPE + SCREEN PRENATALon ABO O Normal [facility] Comment on above: Order Comment: Speci men Type: BLOOD SPECIMEN Ordering Facility: [facility] Address: [address] [place] [address] Performed By: #### 5 195-3, 22292-4, 10815-4 #### [facility] CLIA [id number] [address] [place] [address] [place] Rh Nom (Bld) Negative Normal [facility] Comment on above: Order Comment: Speci men Type: BLOOD SPECIMEN Ordering Facility: [facility] Address: [address] [place] [address] Performed By: #### 5 195-3, 45387-3, 00988-3 #### [facility] CLIA [id number] [address] [place] [address] [place] TYPE AND SCREEN EXPIRATION 06/16/2024 23:59 Normal [facility] Comment on above: Order Comment: Speci men Type: BLOOD SPECIMEN Ordering Facility: [facility] Address: [address] [place] [address] Performed By: #### 5 195-3, 82073-7, 90069-8 #### [facility] CLIA [id number] [address] [place] [address] [place] CNPNon 06-10-2024 CNPN Telephone (4CQ) KENIAGREGG ([id number]) 4 F Date Time Provider Department 06/10/24 [...] 1 capsule by mouth once daily. - [id number]-vnbbp acid ( 19) 29 mg iron- 1 [...] Encounter Status:Closed by KATIE YUSUF on 06/10/24 [facility] Telephone (OBGYWM) GREGG ZUNIGA ([id number]) 4 F Date Time Provider Department 06/10/24 [...] Signed Left message for patient to check [employer] message or call office. Katie Yusuf RN Allergies As of Date: 06/10/2024 Noted Allergy Reaction ADHESIVE 10/23/2023 4 - Hives LACTOSE 10/23/2023 8 - GI Upset Date Reviewed: 06/04/2024 Reviewed by: Manas Vogel MA - Fully Assessed Reason for Visit: OB back pain [Other] Prescriptions as of 06/10/2024 - omeprazole (PRILOSEC) 10 mg capsule Take 1 capsule by mouth once daily. - ry233-[id number]-bzcvz acid ( 19) 29 mg iron- 1 [...] Status:Closed by GEORGIA WREN on 06/10/24 Normal [facility] Sheila 2024 CNPN Telephone (OBGYWM) GREGG ZUNIGA ([id number]) 4 F Date Time Provider Department 04/24/24 YOBANY ROMERO OBGYWChris During your visit today, we recorded the following information about you: Katie Yusuf RN 2024 11:49 AM Signed 21w6d Patient's mother calling for her. She has GI virus with vomiting and diarrhea for over 24 hours. Mother talked to provider continuous improvement intern early this morning and gave 2 imodium [...] Status:Closed by KATIE YUSUF on 04/24/24 Normal [facility] Examination level ultrasound on 04-14-2024 Indication Standard [...] 13 oz EFW by: [facility] (HC-AC-FL) [facility] Orderly 6.6 mm CM 3.3 mm 5% Nicolaides [...] normal LVOT view: normal 3-vessel view: normal 9-nssexy-jujhhhv view: normal Heart / Thorax Situs: situs [...] Read By: Marlene Prakash M.D. MATERNAL MEDICINE [facility] Radiology Study observation (narrative) Adriana irby [facility] CNCOon 03-31-2024 CNCO Letter Text Normal [facility] CNOVon 03-28-2024 CNOV Office Visit (CARDMN) GREGG ZUNIGA ([id number]) 4 F Date Time Provider Department 03/28/24 9:15 AM JAY BYRD CARDROBBIN During your visit today, we recorded the following information about you: Pulse Blood pressure Weight Height 79/minute 114/71 60.3 kg 1.562 m Jay Byrd MD 03/28/2024 10:26 AM Signed [facility] Castell[facility] Department of Cardiovascular Medicine SECTION OF CARDIAC PACING and ELECTROPHYSIOLOGY OUTPATIENT VISIT DATE March 28, 2024 OUTPATIENT VISIT TYPE ESTABLISHED PRIMARY CARE PHYSICIAN: Kayleen Mckay MD [address] [place] [address] CHIEF COMPLAINT: Follow-up for tachycardia and syncope [...] in office 12/24/2023. She was given a [employer] monitor and mailed it back but monitor was never received by [employer] (confirmed with company). Echo 12/24/2023 showed EF=63% [...] mg 24 hr tablet Take by mouth. Nahco Kwan RN PHYSICAL EXAMINATION: BP 114/71 Pulse [...] visit a (more content not included)... Normal [facility] ECG COMPLETEon 03-28-2024 ECG COMPLETE Ventricular Rate : 72 BPM Atrial Rate : 72 BPM P-R Interval : 130 ms QRS Duration : 84 ms Q-T Interval : 368 ms QTC Calculation(Bazett) : 402 ms Calculated P [place] : 21 degrees Calculated R [place] : 64 degrees Calculated T [place] : 48 degrees NORMAL SINUS RHYTHM NORMAL ECG Confirmed by ALISTAIR MARTINEZ MD ([id number]) on 04/15/2024 9:35:54 AM NAME : GREGG ZUNIGA PID : [id number] : 2000 Gender : Female Race : ORD : [id number] Procedure Date : Mar 28 2024 08:33:06 Edit Date : Apr 15 2024 09:35:55 Diagnosis: NORMAL SINUS RHYTHM NORMAL ECG Confirmed by ALISTAIR MARTINEZ MD ([id number]) on 04/15/2024 9:35:54 AM Test Reason : Location : [facility] : [facility] Overread By : ALISTAIR MARTINEZ MD Edited By : ALISTAIR MARTINEZ MD Referred By : JAY BYRD Acquired by : MEGAN WARREN [facility] 12 Lead EKGon 03-24-2024 12 Lead EKG [facility] [address] [place] [address] 12 Lead EKG 03/24/24 1830 MR#: [id number] Acct: [id number] Name: GREGG ZUNIGA Rep #: [id number] : 2000 23 From: Cailin Joy MD [...] Confirmed by MARKO SANTIAGO, JOSE M ([id number]), digital editor AGUSTIN MCCLURE ([id number]) on 03/31/2024 2:24:00 PM Referred By: Confirmed By: JOSE M JOY MD 03/31/24 1424 Date Cailin Joy MD CC: Dr. Len Haile, DO; No Primary Care Physician Signed Normal [facility] Absolute lymphocyte countOrd ered By: Len Haile on 03-24-2024 Lymphocytes Auto (Unsp spec) [#/Vol] 2.49 10*3/uL 0.83-4.51 [facility] Absolute neutrophil countOrd ered By: Len Haile on 03-24-2024 Neutrophils (Bld) [#/Vol] 11.5 10*3/uL High 2.0-7.7 [facility] Albumin to globulin ratioOrd ered By: Len Haile on 03-24-2024 Albumin/Globulin [Mass ratio] 1.0 {ratio} 0.9-2.4 [facility] Automated lymphocyte count a s percentage of total leukocytesOrdered By: Len Haile on 03-24-2024 Lymphocytes/100 WBC Auto (Unsp spec) 16.4 % Low 19-41 [facility] Basophil percentageOrdered B y: Len Haile on 03-24-2024 Basophils/100 WBC (Bld) 0.2 % 0-1 [facility] Bilirubin, totalOrdered By: Len Haile on 03-24-2024 Bilirubin [Mass/Vol] 0.40 mg/dL 0.20-1.00 [facility] Comment on above: For patients on eltr ombopag therapy, use of Dimension [place] TBIL is not recommended. Blood urea nitrogen (BUN)/cr eatinine ratioOrdered By: Len Haile on 03-24-2024 Urea nitrogen/Creatinine [Mass ratio] 7.2 mg/mg Low 10-20 [facility] CBC W/Diff, Automatedon 03-06 Absolute Lymph 2.49 X10 3/uL Normal 0.83-4.51 [facility] Comment on above: Performed By: #### L 501.2450, L100.0100, L500.4050 #### [facility] [place], [address] Absolute Neut 11.5 X10 3/uL High 2.0-7.7 [facility] Comment on above: Performed By: #### L 501.2450, L100.0100, L500.4050 #### [facility] [address] [place], [address] Basophils/100 WBC (Bld) 0.2 % Normal 0-1 [facility] Comment on above: Performed By: #### L 501.2450, L100.0100, L500.4050 #### [facility] [address] [place], [address] Eosinophils/100 WBC (Bld) 2.6 % Normal 0-5 [facility] Comment on above: Performed By: #### L 501.2450, L100.0100, L500.4050 #### [facility] [address] [place], [address] Erythrocyte distribution width (RBC) [Ratio] 13.3 % Normal 11.6-14.6 [facility] Comment on above: Performed By: #### L 501.2450, L100.0100, L500.4050 #### [facility] [address] [place], [address] Hematocrit (Bld) [Volume fraction] 39.2 % Normal 37-47 [facility] Comment on above: Performed By: #### L 501.2450, L100.0100, L500.4050 #### [facility] [address] [place], [address] Hemoglobin (Bld) [Mass/Vol] 13.5 g/dL Normal 12.0-15.0 [facility] Comment on above: Performed By: #### L 501.2450, L100.0100, L500.4050 #### [facility] [address] [place], [address] IG% 0.300 Normal 0.0-0.9 [facility] Comment on above: Result Comment: IG% - Immature Granulocytes (promyelocytes, myelocytes and metamyelocytes) > 1% indicates that a LEFT SHIFT is Present. Performed By: #### L 501.2450, L100.0100, L500.4050 #### [facility] [address] [place], [address] Lymphocytes/100 WBC (Bld) 16.4 % Low 19-41 [facility] Comment on above: Performed By: #### L 501.2450, L100.0100, L500.4050 #### [facility] [address] [place], [address] MCH (RBC) [Entitic mass] 29.9 pg Normal 27.0-32.0 [facility] Comment on above: Performed By: #### L 501.2450, L100.0100, L500.4050 #### [facility] [address] [place], [address] MCHC (RBC) [Mass/Vol] 34.4 g/dL Normal 32-36 [facility] Comment on above: Performed By: #### L 501.2450, L100.0100, L500.4050 #### [facility] [address] [place], [address] MCV (RBC) [Entitic vol] 86.9 fL Normal 81-99 [facility] Comment on above: Performed By: #### L 501.2450, L100.0100, L500.4050 #### [facility] [address] [place], [address] Monocytes/100 WBC (Bld) 4.7 % Normal 0-10 [facility] Comment on above: Performed By: #### L 501.2450, L100.0100, L500.4050 #### [facility] [address] [place], [address] Neutrophils/100 WBC (Bld) 75.8 % High 47-70 [facility] Comment on above: Performed By: #### L 501.2450, L100.0100, L500.4050 #### [facility] [address] [place], [address] Nucleated RBC (Bld) [#/Vol] 0 10*3/uL Normal 0-5 [facility] Comment on above: Performed By: #### L 501.2450, L100.0100, L500.4050 #### [facility] [address] [place], [address] Platelet mean volume (Bld) [Entitic vol] 9.5 fL Normal 6.2-12.0 [facility] Comment on above: Performed By: #### L 501.2450, L100.0100, L500.4050 #### [facility] [address] [place], [address] Platelets (Bld) [#/Vol] 309 10*3/uL Normal 150-450 [facility] Comment on above: Performed By: #### L 501.2450, L100.0100, L500.4050 #### [facility] [address] [place], [address] RBC (Bld) [#/Vol] 4.51 10*6/uL Normal 4.2-5.4 [facility] Comment on above: Performed By: #### L 501.2450, L100.0100, L500.4050 #### [facility] [address] [place], [address] RDW SD 42.0 fl Normal 35.1-43.9 [facility] Comment on above: Performed By: #### L 501.2450, L100.0100, L500.4050 #### [facility] [address] [place], [address] WBC (Bld) [#/Vol] 15.2 10*3/uL High 4.4-11.0 [facility] Comment on above: Performed By: #### L 501.2450, L100.0100, L500.4050 #### [facility] [address] [place], [address] Carbon dioxide measurementOr dered By: Len Haile on 03-24-2024 CO2 [Moles/Vol] 22.0 mmol/L 21.0-32.0 [facility] Chloride measurementOrdered By: Len Haile on 03-24-2024 Chloride [Moles/Vol] 109 mmol/L High 98-107 [facility] Comprehensive Metabolic Prof ilon 03-24-2024 Albumin [Mass/Vol] 3.4 g/dL Normal 3.2-5.0 [facility] Comment on above: Performed By: #### L 501.2450, L100.0100, L500.4050 #### [facility] [address] [place], [address] Albumin/Globulin [Mass ratio] 1.0 {ratio} Normal 0.9-2.4 [facility] Comment on above: Performed By: #### L 501.2450, L100.0100, L500.4050 #### [facility] [address] [place], [address] ALK P 59 U/L Normal 45-117 [facility] Comment on above: Performed By: #### L 501.2450, L100.0100, L500.4050 #### [facility] [address] [place], [address] ALT [Catalytic activity/Vol] 21 U/L Normal 13-56 [facility] Comment on above: Performed By: #### L 501.2450, L100.0100, L500.4050 #### [facility] [address] [place], [address] AST [Catalytic activity/Vol] 14 U/L Low 15-37 [facility] Comment on above: Performed By: #### L 501.2450, L100.0100, L500.4050 #### [facility] [address] [place], [address] Bilirubin [Mass/Vol] 0.40 mg/dL Normal 0.20-1.00 [facility] Comment on above: Result Comment: For patients on eltrombopag therapy, use of Dimension [place] TBIL is not recommended. Performed By: #### L 501.2450, L100.0100, L500.4050 #### [facility] [address] [place], [address] BUN/CRE 7.2 RATIO Low 10-20 [facility] Comment on above: Performed By: #### L 501.2450, L100.0100, L500.4050 #### [facility] [address] [place], [address] CA,Total 9.2 mg/dL Normal 8.5-10.1 [facility] Comment on above: Performed By: #### L 501.2450, L100.0100, L500.4050 #### [facility] [address] [place], [address] Chloride [Moles/Vol] 109 mmol/L High 98-107 [facility] Comment on above: Performed By: #### L 501.2450, L100.0100, L500.4050 #### [facility] [address] [place], [address] CO2 [Moles/Vol] 22.0 mmol/L Normal 21.0-32.0 [facility] Comment on above: Performed By: #### L 501.2450, L100.0100, L500.4050 #### [facility] [address] [place], [address] Creatinine [Mass/Vol] 0.55 mg/dL Normal 0.55-1.02 [facility] Comment on above: Result Comment: The validity of the calculated GFR GFRAA in patients over 70 years has not been determined. Clinical correlation is essential. Performed By: #### L 501.2450, L100.0100, L500.4050 #### [facility] [address] [place], [address] ECRCL 136.75 ml/min Normal [facility] Comment on above: Performed By: #### L 501.2450, L100.0100, L500.4050 #### [facility] [address] [place], [address] EST GFR - AA 177 mL/min Normal >60 [facility] Comment on above: Result Comment: Afri can Ivorian GFR Calc Performed By: #### L 501.2450, L100.0100, L500.4050 #### [facility] [address] [place], [address] GAP 8 Normal 5-15 [facility] Comment on above: Performed By: #### L 501.2450, L100.0100, L500.4050 #### [facility] [address] [place], [address] GFR/1.73 sq M.predicted among non-blacks MDRD (S/P/Bld) [Vol rate/Area] 146 mL/min/{1.73_m2} Normal >60 [facility] Comment on above: Result Comment: Non- GFR Calc Performed By: #### L 501.2450, L100.0100, L500.4050 #### [facility] [address] [place], [address] Globulin (S) [Mass/Vol] 3.4 g/dL Normal 2.2-4.2 [facility] Comment on above: Performed By: #### L 501.2450, L100.0100, L500.4050 #### [facility] [address] [place], [address] Glucose [Mass/Vol] 98 mg/dL Normal 74-106 [facility] Comment on above: Performed By: #### L 501.2450, L100.0100, L500.4050 #### [facility] [address] [place], [address] Potassium [Moles/Vol] 3.2 mmol/L Low 3.5-5.1 [facility] Comment on above: Performed By: #### L 501.2450, L100.0100, L500.4050 #### [facility] [address] [place], [address] Sodium [Moles/Vol] 139 mmol/L Normal 136-145 [facility] Comment on above: Performed By: #### L 501.2450, L100.0100, L500.4050 #### [facility] [address] [place], [address] T PROT 6.8 g/dL Normal 6.4-8.2 [facility] Comment on above: Performed By: #### L 501.2450, L100.0100, L500.4050 #### [facility] [address] [place], [address] Urea nitrogen [Mass/Vol] 4 mg/dL Low 7-18 [facility] Comment on above: Performed By: #### L 501.2450, L100.0100, L500.4050 #### [facility] [address] [place], [address] Emergency Department Summary on 03-24-2024 Emergency Department Summary [facility] Medical Records Department [address] [place] [address] Emergency Department Summary 03/24/24 MR#: [id number] Acct: [id number] Name: GREGG ZUNIGA Rep #: [id number] : 2000 23 From: Len Haile DO PCP: Care Physician,No Primary Status:REG ER Location: ED HPI History of Present Illness Chief Complaint: Nausea/Vomiting/Diar nereida [facility] Medical History Physical exam, pre-employment Palpitations Chest [...] History obtained from others: none Consults: none [facility] Narrative: Patient was initially tachycardic rate of 122, otherwise afebrile and nontoxic-appearing. Exam with benign abdomen. No peritoneal signs. Gravid uterus. No significant tenderness noted. I considered the following differential diagnosis: loss, dehydration, viral gastroenteritis, electrolyte disturbances, UTI I obtained a broad lab and imaging workup to further elucidate etiology of patient complaints. I gave patient IV fluids (more content not included)... Normal [facility] Eosinophil percentageOrdered By: Len Haile on 03-24-2024 Eosinophils/100 WBC (Bld) 2.6 % 0-5 [facility] Erythrocyte distribution wid th (RBC) [Ratio]Ordered By: Len Haile on 03-24-2024 Erythrocyte distribution width (RBC) [Entitic vol] 42.0 fL 35.1-43.9 [facility] Erythrocyte distribution wid th ratioOrdered By: Len Haile on 03-24-2024 Erythrocyte distribution width (RBC) [Ratio] 13.3 % 11.6-14.6 [facility] Erythrocyte distribution wid th standard deviationOrdered By: Len Haile on 03-24-2024 Erythrocyte distribution width (RBC) [Ratio] 42.0 fl 35.1-43.9 [facility] Estimated glomerular filtrat ion rate (GFR) AmericanOrdered By: Len Haile on 03-24-2024 Estimated GFR (MDRD) Amer 177 mL/min >60 [facility] Comment on above: GFR Calc Estimation of creatinine yaniv aranceOrdered By: Len Haile on 03-24-2024 Estimated Creatinine Clearance Calc 136.75 ml/min [facility] Glomerular filtration rate ( GFR) estimationOrdered By: Len Haile on 03-24-2024 Estimated GFR (MDRD) Non-Af Amer 146 mL/min >60 [facility] Comment on above: Non- GFR Calc GFR/1.73 sq M.predicted among non-blacks MDRD (S/P/Bld) [Vol rate/Area] 146 mL/min/{1.73_m2} >60 [facility] Comment on above: Non- GFR Calc Glucose measurementOrdered B y: Len Haile on 03-24-2024 Glucose [Mass/Vol] 98 mg/dL 74-106 [facility] Hematocrit Auto (Bld) [Volum e fraction]Ordered By: Len Haile on 03-24-2024 Hematocrit (Bld) [Volume fraction] 39.2 % 37-47 [facility] Hemoglobin measurementOrdere d By: Len Haile on 03-24-2024 Hemoglobin (Bld) [Mass/Vol] 13.5 g/dL 12.0-15.0 [facility] Immature granulocytes/100 WB C Auto (Bld)Ordered By: Len Haile on 03-24-2024 Immature granulocytes/100 WBC (Bld) 0.300 % 0.0-0.9 [facility] Comment on above: IG% - Immature Granu locytes (promyelocytes, myelocytes and metamyelocytes) > 1% indicates that a LEFT SHIFT is Present. Laboratory - Chemistry and C hemistry - challengeOrdered By: Len Haile on 03-24-2024 AST [Catalytic activity/Vol] 14 U/L Low 15-37 [facility] Lipaseon 03-24-2024 Lipase [Catalytic activity/Vol] 19 U/L Normal 13-75 [facility] Comment on above: Result Comment: Plea se note: LIPASE revised reference range effective 22. New Lipase methodology. Expected to produce lower values than the previous assay method. NEW Reference Range: 13 - 75 U/L Performed By: #### L 503.7505, L504.2610, L501.2450, L100.0100, L500.4050 #### [facility] [place], [address] Lipase measurementOrdered By : Len Haile on 03-24-2024 Lipase [Catalytic activity/Vol] 19 U/L 13-75 [facility] Comment on above: Please note:LIPASE r evised reference range effective 22. New Lipase methodology. Expected to produce lower values than the previous assay method. NEW Reference Range: 13 - 75 U/L Lymphocytes Auto (Unsp spec) [#/Vol]Ordered By: Len Haile on 03-24-2024 Lymphocytes (Bld) [#/Vol] 2.49 10*3/uL 0.83-4.51 [facility] Lymphocytes/100 WBC Auto (Un sp spec)Ordered By: Len Haile on 03-24-2024 Lymphocytes/100 WBC (Bld) 16.4 % Low 19-41 [facility] MCV (mean corpuscular volume ) determinationOrdered By: Len Haile on 03-24-2024 MCV (RBC) [Entitic vol] 86.9 fL 81-99 [facility] Mean corpuscular hemoglobin (MCH) determinationOrdered By: Len Haile on 03-24-2024 MCH (RBC) [Entitic mass] 29.9 pg 27.0-32.0 [facility] Mean corpuscular hemoglobin concentration (MCHC) determinationOrdered By: Len Haile on 03-24-2024 MCHC (RBC) [Mass/Vol] 34.4 g/dL 32-36 [facility] Mean platelet volume determi nationOrdered By: Len Haile on 03-24-2024 Platelet mean volume (Bld) [Entitic vol] 9.5 fL 6.2-12.0 [facility] Monocyte percentageOrdered B y: Len Haile on 03-24-2024 Monocytes/100 WBC (Bld) 4.7 % 0-10 [facility] Neutrophil percentageOrdered By: Len Haile on 03-24-2024 Neutrophils/100 WBC (Bld) 75.8 % High 47-70 [facility] Nucleated red blood cell per centageOrdered By: Len Haile on 03-24-2024 Nucleated RBC/100 WBC (Bld) [Ratio] 0 % 0-5 [facility] Platelet countOrdered By: Paul Haile on 03-24-2024 Platelets (Bld) [#/Vol] 309 10*3/uL 150-450 [facility] Potassium measurementOrdered By: Len Haile on 03-24-2024 Potassium [Moles/Vol] 3.2 mmol/L Low 3.5-5.1 [facility] RBC Auto (Bld) [#/Vol]Ordere d By: Len Haile on 03-24-2024 RBC (Bld) [#/Vol] 4.51 10*6/uL 4.2-5.4 [facility] Serum anion gap measurementO rdered By: Len Haile on 03-24-2024 Anion gap [Moles/Vol] 8 mmol/L 5-15 [facility] Serum globulin measurementOr dered By: Len Haile on 03-24-2024 Globulin (S) [Mass/Vol] 3.4 g/dL 2.2-4.2 [facility] Serum or plasma alanine bobo otransferase (ALT) measurementOrdered By: Len Haile on 03-24-2024 ALT [Catalytic activity/Vol] 21 U/L 13-56 [facility] Serum or plasma albumin noa urement (mass/volume)Ordered By: Len Haile on 03-24-2024 Albumin [Mass/Vol] 3.4 g/dL 3.2-5.0 [facility] Serum or plasma alkaline nancy sphatase measurementOrdered By: Len Haile on 03-24-2024 ALP [Catalytic activity/Vol] 59 U/L 45-117 [facility] Serum or plasma calcium noa urement (mass/volume)Ordered By: Len Haile on 03-24-2024 Calcium [Mass/Vol] 9.2 mg/dL 8.5-10.1 [facility] Serum or plasma creatinine m easurement (mass/volume)Ordered By: Len Haile on 03-24-2024 Creatinine [Mass/Vol] 0.55 mg/dL 0.55-1.02 [facility] Comment on above: The validity of the calculated GFR & GFRAA in patients over 70 years has not been determined. Clinical correlation is essential. Serum or plasma urea nitroge n measurement (mass/volume)Ordered By: Len Haile on 03-24-2024 Urea nitrogen [Mass/Vol] 4 mg/dL Low 7-18 [facility] Sodium levelOrdered By: Carlos Eduardo Haile on 03-24-2024 Sodium [Moles/Vol] 139 mmol/L 136-145 [facility] Total proteinOrdered By: Madeline Haile on 03-24-2024 Protein [Mass/Vol] 6.8 g/dL 6.4-8.2 [facility] Urinalysis, Completeon 03-24 BACTERIA Normal None Seen [facility] Comment on above: Order Comment: CLEAN CATCH Result Comment: Canc elled via OM: Pt refuses the test Performed By: #### L 400.0001 #### [facility] [address] [place], [address] BILIRUBIN URINE Normal Negative [facility] Comment on above: Order Comment: CLEAN CATCH Result Comment: Canc elled via OM: Pt refuses the test Performed By: #### L 400.0001 #### [facility] [address] [place], [address] Clarity (U) Normal Clear [facility] Comment on above: Order Comment: CLEAN CATCH Result Comment: Canc elled via OM: Pt refuses the test Performed By: #### L 400.0001 #### [facility] [address] [place], [address] Color (U) Normal Yellow [facility] Comment on above: Order Comment: CLEAN CATCH Result Comment: Canc elled via OM: Pt refuses the test Performed By: #### L 400.0001 #### [facility] [address] [place], [address] EPI,SQUAMOUS Normal 5-10 [facility] Comment on above: Order Comment: CLEAN CATCH Result Comment: Canc elled via OM: Pt refuses the test Performed By: #### L 400.0001 #### [facility] [address] [place], [address] GLUCOSE, UR Normal Normal [facility] Comment on above: Order Comment: CLEAN CATCH Result Comment: Canc elled via OM: Pt refuses the test Performed By: #### L 400.0001 #### [facility] [address] [place], [address] KETONE UR Normal Negative [facility] Comment on above: Order Comment: CLEAN CATCH Result Comment: Canc elled via OM: Pt refuses the test Performed By: #### L 400.0001 #### [facility] [address] [place], [address] LEUK ESTERASE Normal Negative [facility] Comment on above: Order Comment: CLEAN CATCH Result Comment: Canc elled via OM: Pt refuses the test Performed By: #### L 400.0001 #### [facility] [address] [place], [address] Mucus Ql (Urine sed) Normal [facility] Comment on above: Order Comment: CLEAN CATCH Result Comment: Canc elled via OM: Pt refuses the test Performed By: #### L 400.0001 #### [facility] [address] [place], [address] Nitrite Ql (U) Normal Negative [facility] Comment on above: Order Comment: CLEAN CATCH Result Comment: Canc elled via OM: Pt refuses the test Performed By: #### L 400.0001 #### [facility] [address] [place], [address] OCCULT BLOOD-UR Normal Negative [facility] Comment on above: Order Comment: CLEAN CATCH Result Comment: Canc elled via OM: Pt refuses the test Performed By: #### L 400.0001 #### [facility] [address] [place], [address] pH UR Normal 5.0 - 8.0 [facility] Comment on above: Order Comment: CLEAN CATCH Result Comment: Canc elled via OM: Pt refuses the test Performed By: #### L 400.0001 #### [facility] [address] [place], [address] PROT DIPSTX Normal Negative [facility] Comment on above: Order Comment: CLEAN CATCH Result Comment: Canc elled via OM: Pt refuses the test Performed By: #### L 400.0001 #### [facility] [address] [place], [address] RBC Normal 0-5 [facility] Comment on above: Order Comment: CLEAN CATCH Result Comment: Canc elled via OM: Pt refuses the test Performed By: #### L 400.0001 #### [facility] [address] [place], [address] SP.GR. DIPSTX Normal 1.002-1.030 [facility] Comment on above: Order Comment: CLEAN CATCH Result Comment: Canc elled via OM: Pt refuses the test Performed By: #### L 400.0001 #### [facility] [address] [place], [address] UR Preservative Normal [facility] Comment on above: Order Comment: CLEAN CATCH Result Comment: Canc elled via OM: Pt refuses the test Performed By: #### L 400.0001 #### [facility] [address] [place], [address] UROBILI Normal Normal [facility] Comment on above: Order Comment: CLEAN CATCH Result Comment: Canc elled via OM: Pt refuses the test Performed By: #### L 400.0001 #### [facility] [address] [place], [address] WBC Normal 0-5 [facility] Comment on above: Order Comment: CLEAN CATCH Result Comment: Canc elled via OM: Pt refuses the test Performed By: #### L 400.0001 #### [facility] [address] [place], [address] White blood cell (WBC) count Ordered By: Len Haile on 03-24-2024 WBC (Bld) [#/Vol] 15.2 10*3/uL High 4.4-11.0 [facility] CNOVon 03-18-2024 CNOV Office Visit ([facility]) GREGG ZUNIGA ([id number]) 4 F Date Time Provider Department 03/18/24 1:30 PM CONY CARDONA [facility] During your visit today, we recorded the following information about you: Temperature Pulse Respiration Blood pressure 98.3 degrees 84/minute 18/minute 121/83 Weight 63.5 kg Cony Cardona APRN.CNP 03/18/2024 2:14 PM Signed This note was created using Quandoo. Subjective Gregg Zuniga is a 23 year [...] [S89.91XA] Order(s):XR KNEE LIMITED 2V AP/LAT RIGHT [0527504] Order #: [id number] FUTURE CONSULT TO ORTHOPAEDICS [9084] Order #: [id number]: 1 FUTURE Prescriptions as of 03/18/2024 - [...] Service: OFFICE/OUTPATIENT ESTABLISHED MOD MDM 30 MIN [45990] Encounter Status:Closed by CONY CARDONA on 03/18/24 Normal [facility] XR KNEE 2V AP/LAT RTon 03-18 XR [...] are maintained. IMPRESSION: No acute osseous abnormality. Sales Representative Advertising: KENYA Transcribe Date/Time: Mar 18 2024 2:03P Dictated by : NAJMA MCDONOUGH DO This examination was interpreted and the report reviewed and electronically signed by: NAJMA MCDONOUGH DO on Mar 18 2024 2:04PM EST [id number] Normal [facility] XR Knee - right AP and Later essence 03-18-2024 IMPRESSION: No acute osseous abnormality. Sales Representative Advertising: KENYA Transcribe Date/Time: Mar 18 2024 2:03P [...] spaces are maintained. DIVISION OF RADIOLOGY Provider, [facility] - 03/18/2024 * * *Final Report* * [...] maintained. IMPRESSION IMPRESSION: No acute osseous abnormality. Sales Representative Advertising: KENYA Transcribe Date/Time: Mar 18 2024 2:03P Dictated by : NAJMA MCDONOUGH DO This examination was interpreted and the report reviewed and electronically signed by: NAJMA MCDONOUGH DO on Mar 18 2024 2:04PM [facility] Radiology Study observation (narrative) Adriana Kohler XR Knee - right AP and Later alOrdered By: [facility] Provider on 03-18-2024 [facility] TYPE + SCREEN PRENATALon ABO O Normal [facility] Comment on above: Order Comment: Speci men Type: BLOOD SPECIMEN Ordering Facility: [facility] Address: [address] [place] [address] Performed By: #### 5 195-3, 10396-9, 02425-7 #### [facility] CLIA [id number] [address] [place] [address] [place] Rh Nom (Bld) Negative Normal [facility] Comment on above: Order Comment: Speci men Type: BLOOD SPECIMEN Ordering Facility: [facility] Address: [address] [place] [address] Performed By: #### 5 195-3, 00297-6, 98877-2 #### [facility] CLIA [id number] [address] [place] [address] [place] TYPE AND SCREEN EXPIRATION 03/20/2024 23:59 Normal [facility] Comment on above: Order Comment: Speci men Type: BLOOD SPECIMEN Ordering Facility: [facility] Address: [address] [place] [address] Performed By: #### 5 195-3, 95181-0, 11305-9 #### [facility] CLIA [id number] [address] [place] [address] [place] CBC W Auto Differential pane l (Bld)on 02-18-2024 Basophils (Bld) [#/Vol] 0.03 10*3/uL Normal <0.11 [facility] Comment on above: Order Comment: Speci men Type: BLOOD SPECIMEN Ordering Facility: [facility] Address: [address] [place] [address] Performed By: #### 5 195-3, 83829-5, 06325-1 #### [facility] CLIA [id number] [address] [place] [address] [place] Basophils/100 WBC (Bld) 0.3 % Normal [facility] Comment on above: Order Comment: Speci men Type: BLOOD SPECIMEN Ordering Facility: [facility] Address: [address] [place] [address] Performed By: #### 5 195-3, 07096-6, 13142-6 #### [facility] CLIA [id number] [address] [place] [address] [place] Differential cell count method Nom (Bld) Auto Normal [facility] Comment on above: Order Comment: Speci men Type: BLOOD SPECIMEN Ordering Facility: [facility] Address: [address] [place] [address] Performed By: #### 5 195-3, 64029-1, 72469-2 #### [facility] CLIA [id number] [address] [place] [address] [place] Eosinophils (Bld) [#/Vol] 0.45 10*3/uL Normal <0.46 [facility] Comment on above: Order Comment: Speci men Type: BLOOD SPECIMEN Ordering Facility: [facility] Address: [address] [place] [address] Performed By: #### 5 195-3, 51961-4, 75444-2 #### [facility] CLIA [id number] [address] [place] [address] [place] Eosinophils/100 WBC (Bld) 4.1 % Normal [facility] Comment on above: Order Comment: Speci men Type: BLOOD SPECIMEN Ordering Facility: [facility] Address: [address] [place] [address] Performed By: #### 5 195-3, 33232-2, 12737-9 #### [facility] CLIA [id number] [address] [place] [address] [place] Erythrocyte distribution width (RBC) [Ratio] 12.9 % Normal 11.5-15.0 [facility] Comment on above: Order Comment: Speci men Type: BLOOD SPECIMEN Ordering Facility: [facility] Address: [address] [place] [address] Performed By: #### 5 195-3, 13997-9, 24754-3 #### [facility] CLIA [id number] [address] [place] [address] [place] Hematocrit (Bld) [Volume fraction] 41.2 % Normal 36.0-46.0 [facility] Comment on above: Order Comment: Speci men Type: BLOOD SPECIMEN Ordering Facility: [facility] Address: [address] [place] [address] Performed By: #### 5 195-3, 53724-7, 04312-5 #### [facility] CLIA [id number] [address] [place] [address] [place] Hemoglobin (Bld) [Mass/Vol] 14.4 g/dL Normal 11.5-15.5 [facility] Comment on above: Order Comment: Speci men Type: BLOOD SPECIMEN Ordering Facility: [facility] Address: [address] [place] [address] Performed By: #### 5 195-3, 78282-9, 42363-0 #### [facility] CLIA [id number] [address] [place] [address] [place] Immature granulocytes (Bld) [#/Vol] 0.03 10*3/uL Normal <0.10 [facility] Comment on above: Order Comment: Speci men Type: BLOOD SPECIMEN Ordering Facility: [facility] Address: [address] [place] [address] Performed By: #### 5 195-3, 34471-4, 81983-9 #### [facility] CLIA [id number] [address] [place] [address] [place] Immature granulocytes/100 WBC (Bld) 0.3 % Normal [facility] Comment on above: Order Comment: Speci men Type: BLOOD SPECIMEN Ordering Facility: [facility] Address: [address] [place] [address] Performed By: #### 5 195-3, 91009-2, 44773-9 #### [facility] CLIA [id number] [address] [place] [address] [place] Lymphocytes (Bld) [#/Vol] 2.91 10*3/uL Normal 1.00-4.00 [facility] Comment on above: Order Comment: Speci men Type: BLOOD SPECIMEN Ordering Facility: [facility] Address: [address] [place] [address] Performed By: #### 5 195-3, 81772-4, 26406-5 #### [facility] CLIA [id number] [address] [place] [address] [place] Lymphocytes/100 WBC (Bld) 26.6 % Normal [facility] Comment on above: Order Comment: Speci men Type: BLOOD SPECIMEN Ordering Facility: [facility] Address: [address] [place] [address] Performed By: #### 5 195-3, 33719-4, 97984-6 #### [facility] CLIA [id number] [address] [place] [address] [place] MCH (RBC) [Entitic mass] 30.0 pg Normal 26.0-34.0 [facility] Comment on above: Order Comment: Speci men Type: BLOOD SPECIMEN Ordering Facility: [facility] Address: [address] [place] [address] Performed By: #### 5 195-3, 98277-5, 00626-1 #### [facility] CLIA [id number] [address] [place] [address] [place] MCHC (RBC) [Mass/Vol] 35.0 g/dL Normal 30.5-36.0 [facility] Comment on above: Order Comment: Speci men Type: BLOOD SPECIMEN Ordering Facility: [facility] Address: [address] [place] [address] Performed By: #### 5 195-3, 88944-3, 48914-6 #### [facility] CLIA [id number] [address] [place] [address] [place] MCV (RBC) [Entitic vol] 85.8 fL Normal 80.0-100.0 C [facility] Comment on above: Order Comment: Speci men Type: BLOOD SPECIMEN Ordering Facility: [facility] Address: [address] [place] [address] Performed By: #### 5 195-3, 37219-1, 98347-6 #### [facility] CLIA [id number] [address] [place] [address] [place] Monocytes (Bld) [#/Vol] 0.67 10*3/uL Normal <0.87 [facility] Comment on above: Order Comment: Speci men Type: BLOOD SPECIMEN Ordering Facility: [facility] Address: [address] [place] [address] Performed By: #### 5 195-3, 30482-2, 60828-6 #### [facility] CLIA [id number] [address] [place] [address] [place] Monocytes/100 WBC (Bld) 6.1 % Normal [facility] Comment on above: Order Comment: Speci men Type: BLOOD SPECIMEN Ordering Facility: [facility] Address: [address] [place] [address] Performed By: #### 5 195-3, 57481-1, 00469-4 #### [facility] CLIA [id number] [address] [place] [address] [place] Neutrophils (Bld) [#/Vol] 6.83 10*3/uL Normal 1.45-7.50 [facility] Comment on above: Order Comment: Speci men Type: BLOOD SPECIMEN Ordering Facility: [facility] Address: [address] [place] [address] Performed By: #### 5 195-3, 03327-3, 83509-1 #### [facility] CLIA [id number] [address] [place] [address] [place] Neutrophils/100 WBC (Bld) 62.6 % Normal [facility] Comment on above: Order Comment: Speci men Type: BLOOD SPECIMEN Ordering Facility: [facility] Address: [address] [place] [address] Performed By: #### 5 195-3, 71398-4, 23940-5 #### [facility] CLIA [id number] [address] [place] [address] [place] Nucleated RBC (Bld) [#/Vol] 10*3/uL Normal <0.01 [facility] Comment on above: Order Comment: Speci men Type: BLOOD SPECIMEN Ordering Facility: [facility] Address: [address] [place] [address] Performed By: #### 5 195-3, 73912-7, 41436-2 #### [facility] CLIA [id number] [address] [place] [address] [place] Nucleated RBC/100 WBC (Bld) [Ratio] 0.0 /100 WBC Normal [facility] Comment on above: Order Comment: Speci men Type: BLOOD SPECIMEN Ordering Facility: [facility] Address: [address] [place] [address] Performed By: #### 5 195-3, 70891-4, 77494-3 #### [facility] CLIA [id number] [address] [place] [address] [place] Platelet mean volume (Bld) [Entitic vol] 9.7 fL Normal 9.0-12.7 [facility] Comment on above: Order Comment: Speci men Type: BLOOD SPECIMEN Ordering Facility: [facility] Address: [address] [place] [address] Performed By: #### 5 195-3, 30147-6, 10824-1 #### [facility] CLIA [id number] [address] [place] [address] [place] Platelets (Bld) [#/Vol] 320 10*3/uL Normal 150-400 [facility] Comment on above: Order Comment: Speci men Type: BLOOD SPECIMEN Ordering Facility: [facility] Address: [address] [place] [address] Performed By: #### 5 195-3, 81756-5, 82633-2 #### [facility] CLIA [id number] [address] [place] [address] [place] RBC (Bld) [#/Vol] 4.80 10*6/uL Normal 3.90-5.20 [facility] Comment on above: Order Comment: Speci men Type: BLOOD SPECIMEN Ordering Facility: [facility] Address: [address] [place] [address] Performed By: #### 5 195-3, 64057-9, 31812-8 #### [facility] CLIA [id number] [address] [place], [place] [address] [address] [place] WBC (Bld) [#/Vol] 10.92 10*3/uL Normal 3.70-11.00 [facility] Comment on above: Order Comment: Speci men Type: BLOOD SPECIMEN Ordering Facility: [facility] Address: [address] [place] [address] Performed By: #### 5 195-3, 87951-6, 21851-3 #### [facility] CLIA [id number] [address] [place] [address] [place] nuchal translucency me asured by USon 02-18-2024 Indication First trimester anatomic survey Impression REMOTE READ The patient is referred for a first trimester anatomy scan including nuchal translucency measurement as clinically indicated. - Single, live, intrauterine . - [place] rump length measurement is consistent with the [...] view: visualized 4-chamber view with color: visualized 2-yebrkr-zkpobff view: normal Abdominal cord insertion: normal Stomach: [...] Read By: Marlene Prakash M.D. MATERNAL MEDICINE [facility] Radiology Study observation (narrative) [facility] HBV surface Ag Ser Qlon 02-02 HBV surface Ag Ql (S) Negative Normal Negative [facility] Comment on above: Order Comment: Speci men Type: BLOOD SPECIMEN Ordering Facility: [facility] Address: [address] [place] [address] Performed By: #### 5 195-3, 78920-9, 15757-1 #### [facility] CLIA [id number] [address] [place] [address] OF [place] HCV Ab Ser Qlon 02-18-2024 HCV Ab Ql (S) Negative Normal Negative [facility] Comment on above: Order Comment: Speci men Type: BLOOD SPECIMEN Ordering Facility: [facility] Address: [address] [place] [address] Result Comment: The result suggests no evidence of active infection with Hepatitis C virus. Should recent infection be suspected, repeat testing may be considered 4-6 weeks after this draw. Performed By: #### 5 195-3, 29946-8, 10915-5 #### [facility] CLIA [id number] [address] [place] [address] [place] HIV 1+2 Ab IA Qlon 4 HIV 1 and 2 Ab IA.rapid Nom (S/P/Bld) Normal [facility] Comment on above: Order Comment: Speci men Type: BLOOD SPECIMEN Ordering Facility: [facility] Address: [address] [place] [address] Result Comment: Test not indicated. Performed By: #### 5 195-3, 36974-5, 41707-2 #### [facility] CLIA [id number] [address] [place] [address] [place] HIV 1+2 Ab+HIV1 p24 Ag IA Ql Non-Reactive Normal Nonreactive [facility] Comment on above: Order Comment: Speci men Type: BLOOD SPECIMEN Ordering Facility: [facility] Address: [address] [place] [address] Performed By: #### 5 195-3, 85630-3, 40462-5 #### [facility] CLIA [id number] [address] [place] [address] [place] HIV immunoassay testing algorithm interpretation (S/P/Bld) [Interp] Normal [facility] Comment on above: Order Comment: Speci men Type: BLOOD SPECIMEN Ordering Facility: [facility] Address: [address] [place] [address] Result Comment: No e vidence of HIV-1 or HIV-2 infection. Should recent infection be suspected, repeat testing may be considered 2-3 weeks after this draw. [place] Rev. Code 3701.243(E): This information has been [...] or diagnoses. Performed By: #### 5 195-3, 46787-4, 09938-1 #### [facility] CLIA [id number] [address] [place] [address] [place] HbA1c (Bld)on 02-18-2024 Average glucose Estimated from glycated hemoglobin (Bld) [Mass/Vol] 80 mg/dL Normal [facility] Comment on above: Order Comment: Speci men Type: BLOOD SPECIMENOrdering Facility: [facility] Address: [address] [place] [address] Result Comment: eAG: (Estimated average glucose) is a calculated value from HgbA1c and is medical billing representative of the average blood glucose level in the last 2-3 month period. Performed By: #### 5 5454-3 ####[facility] [id number] [address] STATES OF [facility] HbA1c (Bld) [Mass fraction] 4.4 % Normal 4.3-5.6 [facility] Comment on above: Order Comment: Speci men Type: BLOOD SPECIMENOrdering Facility: [facility] Address: [address] [place] [address] Result Comment: Amer ican Diabetes Association guidelines indicate that patients with HgbA1c in the range 5.7-6.4% are at increased risk for development of diabetes, and intervention by lifestyle modification may be beneficial. HgbA1c greater or equal to 6.5% is considered diagnostic of diabetes. Performed By: #### 5 5454-3 ####[facility] [id number] [place] [address] [place] [id number] PLUSon 02-18-2024 Cell-free DNA./Cell-free DNA.total Dosage of chromosome-specific cfDNA (cfDNA) [Molar fraction] 20% Normal [facility] Comment on above: Order Comment: Speci men Type: BLOOD SPECIMENOrdering Facility: [facility] Address: [address] [place] [address] Performed By: #### M AT21 ####[facility] LABCLIA [id number] [place] [address] Chr 13+18+21+X+Y aneuploidy Dosage of chromosome-specific cfDNA Ql (cfDNA) Negative Normal [facility] Comment on above: Order Comment: Speci men Type: BLOOD SPECIMENOrdering Facility: [facility] Address: [address] [place] [address] Performed By: #### M AT21 ####[facility] LABCLIA [id number] [place] [address] Chr 21 trisomy Dosage of chromosome-specific cfDNA Ql (cfDNA) Negative Normal [facility] Comment on above: Order Comment: Speci men Type: BLOOD SPECIMENOrdering Facility: [facility] Address: [address] [place] [address] Performed By: #### M AT21 ####[facility] LABCLIA [id number] [place] [address] Chr X and Y aneuploidy risk Sequencing Ql (cfDNA) [Interp] Not detected Normal [facility] Comment on above: Order Comment: Speci men Type: BLOOD SPECIMENOrdering Facility: [facility] Address: [address] [place] [address] Result Comment: Not Detected Not Detected Performed By: #### M AT21 ####[facility] LABCLIA [id number] [place] [address] Citation Jalen (Reference lab test) Comment Normal [facility] Comment on above: Order Comment: Speci men Type: BLOOD SPECIMENOrdering Facility: [facility] Address: [address] [place] [address] Result Comment: 1. P anita SAEED, et al. Gabrielle Med. 2012;14(3):296-305. 2. Castillo RUFFIN, et al. Prenat Diag. 2013;33(6):591-597. 3. Jono C, et al. Clin Chem. 2015 Apr;61(4):608-616. 4. Kimmy SAEED et al. Gabrielle Med. 2011;13(11):913-920. 5. ACOG/SMFM Practice Bulletin No. 226, Dec 2019. Performed By: #### M AT21 ####[facility] LABCLIA [id number] [place] [address] Gestational age Estimated from conception date Fitzgerald Normal [facility] Comment on above: Order Comment: Speci men Type: BLOOD SPECIMENOrdering Facility: [facility] Address: [address] [place] [address] Performed By: #### M AT21 ####[facility] LABCLIA [id number] [place] [id number] GESTATIONALAGE AGE > OR = 9W Yes Normal [facility] Comment on above: Order Comment: Speci men Type: BLOOD SPECIMENOrdering Facility: [facility] Address: [address] [place] [address] Performed By: #### M AT21 ####[facility] LABCLIA [id number] [place] [address] Laboratory comment Jalen (Report) Comment Normal [facility] Comment on above: Order Comment: Speci men Type: BLOOD SPECIMENOrdering Facility: [facility] Address: [address] [place] [address] Result Comment: The MaterniT(R) 21 PLUS laboratory-developed test (LDT) analyzes circulating cell-free DNA from a maternal blood sample. This test is used for screening purposes and not diagnostic. Clinical correlation is recommended. Validation data on twin pregnancies is limited and the ability of this test to detect aneuploidy in higher multiple gestations has not yet been validated. Performed By: #### M AT21 ####[facility] LABCLIA [id number] [place] [id number] parks recreation director name Nom (Provider) Comment Normal [facility] Comment on above: Order Comment: Speci men Type: BLOOD SPECIMENOrdering Facility: [facility] Address: [address] [place] [address] Result Comment: This specimen showed an expected representation of chromosome 21, 18 and 13 material. Clinical correlation is suggested. Comment Scott Euceda MD, PhD, Director, [employer] Performed By: #### M AT21 ####[facility] LABCLIA [id number] [place] [address] LIMITATIONS OF THE TEST Comment Normal C [facility] Comment on above: Order Comment: Speci men Type: BLOOD SPECIMENOrdering Facility: [facility] Address: [address] [place] [address] Result Comment: Abelardo robert the results of [...] and Fragmin(R)). Performed By: #### M AT21 ####[facility] LABCLIA [id number] [place] [address] Monosomy X risk Dosage of chromosome-specific cfDNA Ql (Plasma cell-free+WBC DNA) [Interp] Not detected Normal [facility] Comment on above: Order Comment: Speci men Type: BLOOD SPECIMENOrdering Facility: [facility] Address: [address] [place] [address] Performed By: #### M AT21 ####[facility] LABCLIA [id number] [place] [address] NEGATIVE PREDICTIVE VALUE Note Normal [facility] Comment on above: Order Comment: Speci men Type: BLOOD SPECIMENOrdering Facility: [facility] Address: [address] [place] [address] Result Comment: The Negative Predictive Value (NPV) for trisomy 21, 18, and 13 is greater than 99%. The NPV for SCA and ESS cannot be calculated as SCA and ESS are only reported when an abnormality is detected. Performed By: #### M AT21 ####[facility] LABCLIA [id number] [place] [address] NOTE Comment Normal [facility] Comment on above: Order Comment: Speci [facility] Type: BLOOD SPECIMENOrdering Facility: [facility] Address: [address] [place] [address] Result Comment: See Notes [employer] is a subsidiary of [employer], using the brand [employer]. This test was developed and its performance characteristics determined by [employer]. It has not been cleared or approved by the Food and Drug Administration. This laboratory is certified under the Clinical Laboratory Improvement Amendments (CLIA) as qualified to perform high complexity clinical laboratory testing and accredited by the College [employer] (CAP). If there is future clinical need for adding MaterniT GENOME testing, this specimen will be available until term. [facility] samples will not be retained beyond 60 days. [facility] patients will have to send a new sample for re-sequencing (LCA Test Code: 525688). Performed By: #### M AT21 ####[facility] LABIA [id number] [facility] [place] [address] PERFORMANCE CHARACTERISTICS Note Normal [facility] Comment on above: Order Comment: Anjalii men Type: BLOOD SPECIMENOrdering Facility: [facility] Address: [address] [place] [address] Result Comment: ! Sex ! Accuracy: 99.4% [...] ! ! ! * As reported in [facility] database nstd37 [https://www.ncbi.nlm.nih.gov/dbvar/studies/nstd37/ ] # Estimated Sensitivity. [...] gestation only. Performed By: #### M AT21 ####[employer] LABKidAdmitIA [id number] [place] [address] POSITIVE PREDICTIVE VALUE N/A Normal [facility] Comment on above: Order Comment: Hilda barry Type: BLOOD SPECIMENOrdering Facility: [facility] Address: [address] [place] [address] Performed By: #### M AT21 ####[facility] LABCLIA [id number] [place] [address] Reference Lab Test Method Comment Normal [facility] Comment on above: Order Comment: Hilda barry Type: BLOOD SPECIMENOrdering Facility: [facility] Address: [address] [place] [address] Result Comment: See Notes Circulating cell-free DNA [...] and 22. Performed By: #### M AT21 ####[facility] LABCLIA [id number] [place] [address] Sex Dosage of chromosome-specific cfDNA Nom (cfDNA) Comment Normal [facility] Comment on above: Order Comment: Speci men Type: BLOOD SPECIMENOrdering Facility: [facility] Address: [address] [place] [address] Result Comment: Cons istent with Male Performed By: #### M AT21 ####[facility] LABCLIA [id number] [place] [address] Test performance information Jalen (Unsp spec) Comment Normal [facility] Comment on above: Order Comment: Speci men Type: BLOOD SPECIMENOrdering Facility: [facility] Address: [address] [place] [address] Result Comment: The performance characteristics of the MaterniT(R) 21 PLUS laboratory-developed test (LDT) have been determined in a clinical validation study with women at increased risk for chromosomal aneuploidy.[1-4] Performed By: #### M AT21 ####[facility] LABCLIA [id number] [place] [address] Trisomy 13 risk Dosage of chromosome-specific cfDNA Ql (cfDNA) [Interp] Negative Normal [facility] Comment on above: Order Comment: Speci men Type: BLOOD SPECIMENOrdering Facility: [facility] Address: [address] [place] [address] Performed By: #### M AT21 ####[facility] LABCLIA [id number] [place] [address] Trisomy 18 risk Dosage of chromosome-specific cfDNA Ql (Plasma cell-free+WBC DNA) [Interp] Negative Normal [facility] Comment on above: Order Comment: Speci men Type: BLOOD SPECIMENOrdering Facility: [facility] Address: [address] [place] [address] Performed By: #### M AT21 ####[facility] LABCLIA [id number] [facility] [place] [address] RUBELLA IGG ANTIBODYon 02-17 RUBELLA IGG AB, QUAL Positive Normal Positive [facility] Comment on above: Order Comment: Speci men Type: BLOOD SPECIMENOrdering Facility: [facility] Address: [address] [place] [address] Result Comment: The result suggests recent or past exposure to Rubella virus or history of Rubella vaccination. Positive result may also be seen due to presence of passively-transferred antibodies. Please correlate with patient's history. Performed By: #### R UBIGG ####[facility] LABCLIA [id number] [place] [address] [place] Reagin and Treponema pallidu m IgG and IgM [Interp]on 02-18-2024 T. pallidum IgG+IgM IA Ql (S) Non-Reactive Normal Nonreactive [facility] Comment on above: Order Comment: Speci men Type: BLOOD SPECIMEN Ordering Facility: [facility] Address: [address] [place] [address] Performed By: #### 5 195-3, 29200-9, 33428-4 #### [facility] CLIA [id number] [address] [place] [address] [place] Reagin+T pallidum IgG+IgM Se rPl-Impon 02-18-2024 Reagin and Treponema pallidum IgG and IgM [Interp] Cannot exclude recent Treponemal infection if specimen collected within 7-10 days after appearance of suspect lesions or 2-3 weeks after an exposure. Clinical correlation is required. Normal [facility] Comment on above: Order Comment: Speci men Type: BLOOD SPECIMEN Ordering Facility: [facility] Address: [address] [place] [address] Performed By: #### 5 195-3, 79527-2, 97312-7 #### [facility] CLIA [id number] [address] [place] [address] [place] Bacteria Ur Culton Bacteria identified Cx Nom (U) ORGANISM ID: 1 <10,000 CFU/ml Normal urogenital reza Normal [facility] Comment on above: Performed By: #### 5 7021-8 #### [facility] CLIA [id number] [address] [place] [address] [place] C. trachomatis+N. gonorrhoea e DNA RICHARD+probe Ql (Unsp spec)on 01-14-2024 C. trachomatis rRNA RICHARD+probe Ql (Unsp spec) Negative Normal Negative for Chlamydia trachomatis by amplificaton [facility] Comment on above: Order Comment: Speci men Type: SWABOrdering Facility: [facility] Address: [address] [place] [address] Performed By: #### 3 6902-5 ####[facility]IA [id number] [place] [address] [place] N. gonorrhoeae rRNA RICHARD+probe Ql (Unsp spec) Negative Normal Negative for Neisseria gonorrhoeae by amplification [facility] Comment on above: Order Comment: Speci men Type: SWABOrdering Facility: [facility] Address: [address] [place] [address] Performed By: #### 3 6902-5 ####[facility] LABCLIA [id number] [place] [address] [place] PAP TESTon 01-14-2024 ADEQUACY Normal [facility] Comment on above: Order Comment: Speci men Type: BLOOD SPECIMEN Ordering Facility: [facility] Address: [address] [place] [address] Result Comment: Sati sfactory for interpretation. No endocervical component Performed By: #### 5 195-3, 36195-4, 45227-4 #### [facility] CLIA [id number] [address] [place] [address] [place] CASE REPORT Normal [facility] Comment on above: Order Comment: Speci men Type: BLOOD SPECIMEN Ordering Facility: [facility] Address: [address] [place] [address] Result Comment: Gyne cologic Cytology Report Case: [id number] Authorizing Provider: Angie Ocasio APRN.UNDERWEAR FINISHER Collected: 01/14/2024 09:13 AM Ordering Location: OB/Gynecology Received: 01/14/2024 01:06 PM First Screen: Gareth Swanson Tech Specimen: Pap Test, ThinPrep, Cervix Performed By: #### 5 195-3, 22633-0, 22389-0 #### [facility] CLIA [id number] [address] [place] [address] [place] CLINICAL HISTORY, CYTOLOGY, HEALTH AND SAFETY SPECIALIST Routine Exam Normal [facility] Comment on above: Order Comment: Speci men Type: BLOOD SPECIMEN [facility]ing Facility: [facility] Address: [address] [place] [address] Performed By: #### 5 195-3, 43701-6, 33448-1 #### [facility] CLIA [id number] [address] [place] [address] [place] FINAL PERFORMING LAB Normal [facility] Comment on above: Order Comment: Speci men Type: BLOOD SPECIMEN Ordering Facility: [facility] Address: [address] [place] [address] Result Comment: Tech nical component, stacker operator screening performed at [facility], [address] [place] [address] CLIA# [id number] Diagnostic interpretation performed at [facility], [address] [place] [address] CLIA# [id number] Superintendent Pier: Julien Link M.D. Performed By: #### 5 195-3, 87781-3, 63664-9 #### [facility] CLIA [id number] [address] [place] [address] [place] INTERPRETATION, CYTOLOGY, HEALTH AND SAFETY SPECIALIST Normal [facility] Comment on above: Order Comment: Speci men Type: BLOOD SPECIMEN Ordering Facility: [facility] Address: [address] [place] [address] Result Comment: Nega tive for intraepithelial lesion or malignancy. Performed By: #### 5 195-3, 28821-5, 12955-8 #### [facility] CLIA [id number] [address] [place] [address] [place] LMP 11/23/2023 Normal [facility] Comment on above: Order Comment: Speci men Type: BLOOD SPECIMEN [facility]ing Facility: [facility] Address: [address] [place] [address] Performed By: #### 5 195-3, 81803-5, 65355-6 #### [facility] CLIA [id number] [address] [place] [address] [place] PAP DISCLAIMER COMMENT The Pap Smear is a screening test for cervical cancer. False negative results occur with all screening tests, emphasizing the need for rescreening at recommended intervals, and clinical correlation. Normal [facility] Comment on above: Order Comment: Speci men Type: BLOOD SPECIMEN [facility]ing Facility: [facility] Address: [address] [place] [address] Performed By: #### 5 195-3, 96401-3, 92147-4 #### [facility] CLIA [id number] [address] [place] [address] [place] PAP SCRIPT READER COMMENT This specimen has been analyzed by the ThinPrep Imaging System, an automated imaging and review system, which assists the laboratory in evaluating cells on ThinPrep Pap tests. Following automated imaging, selected villanueva from every slide are reviewed by a stacker operator. Normal [facility] Comment on above: Order Comment: Speci men Type: BLOOD SPECIMEN [facility]ing Facility: [facility] Address: [address] [place] [address] Performed By: #### 5 195-3, 72017-4, 14630-7 #### [facility] CLIA [id number] [address] [place] [address] [place] POC SPICE MILLER HAMMER MILL ULTRASOUNDon 01-14-20 Indication Confirmation of intrauterine . [...] Read By: Angie Ocasio CNP MATERNAL MEDICINE [facility] Radiology Study observation (narrative) Adriana irby [facility] Visit Reporton 1 03-11-2023 Urgent Care Visit Report [facility] [address], [address] [place] [address] OFFICE VISIT Date of Service: 01/10/24 MR#: [id number] Acct: [id number] Name: GREGG ZUNIGA Rep #: [id number] : 2000 Provider: ARDEN Baldwin Age/Sex: 23/F [place] [facility] [place]: Signed Intake Vital Signs 11/01/23 11:55 01/10/24 08:43 Height 5 ft 1 in BP 126/68 H Blood Pressure Location Rt brachial Position Sitting Respiration 15 Pulse 89 Pulse Source NIBP Temp 98.7 F Temp Source Oral Pulse Oximetry (%) 98 Oxygen Delivery Method room air Intake Visit Reasons: BILAT EAR PAIN/POLLOCK/SINUS COMPLAINT Chief Complaint: ear pain, PND, POLLOCK, grn mucus 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 info given to provider. [facility] Medical History Physical exam, pre-employment [...] (if ap (more content not included)... Normal [facility] CNCOon 12-24-2023 CNCO Letter Text Normal [facility] CNOVon 12-24-2023 CNOV Office Visit (CARDMN) GREGG ZUNIGA ([id number]) 4 F Date Time Provider Department 12/24/23 8:30 AM JAY BYRD CARDMN During your visit today, we recorded the following information about you: Pulse Blood pressure Weight Height 99/minute 134/84 62 kg 1.562 m Jay Byrd MD 12/24/2023 9:21 AM Signed [facility] Castell[facility] Department of Cardiovascular Medicine SECTION OF CARDIAC PACING and ELECTROPHYSIOLOGY OUTPATIENT VISIT DATE December 24, 2023 OUTPATIENT VISIT TYPE NEW PRIMARY CARE PHYSICIAN: Kayleen Mckay MD [facility] [place] [address] REFERRING PHYSICIAN: Edith Pablo [place] [address] CHIEF COMPLAINT: Consultation for tachycardias and syncope [...] 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 She has caffeine a few times [...] She monitors her heart rate using an Geekatoo Watch and a pulse oximeter. Increased dosage [...] MEDICINE TESTING: (more content not included)... Normal [facility] ECG COMPLETEon 12-24-2023 ECG COMPLETE Ventricular Rate : 93 BPM Atrial Rate : 93 BPM P-R Interval : 144 ms QRS Duration : 82 ms Q-T Interval : 330 ms QTC Calculation(Bazett) : 410 ms Calculated P [place] : 68 degrees Calculated R [place] : 64 degrees Calculated T [place] : 39 degrees SINUS RHYTHM WITH PREMATURE SUPRAVENTRICULAR COMPLEXES OTHERWISE NORMAL ECG Confirmed by MD VASQUEZ HEBA ([id number]) on 01/07/2024 8:38:02 PM NAME : GREGG ZUNIGA PID : [id number] : 2000 Gender : Female Race : ORD : [id number] Procedure Date : Dec 24 2023 08:04:19 Edit Date : Jan 07 2024 20:38:04 Diagnosis: SINUS RHYTHM WITH PREMATURE SUPRAVENTRICULAR COMPLEXES OTHERWISE NORMAL ECG Confirmed by MD VASQUEZ HEBA ([id number]) on 01/07/2024 8:38:02 PM Test Reason : Location : [facility] : J14 J1-4 Overread By : MD VASQUEZ HEBA Edited By : MD VASQUEZ HEBA Referred By : JAY BRYD Acquired by : MINERVA SAHA Normal [facility] ECHOon 12-24-2023 CONCLUSIONS: - Exam indication: Syncope, [...] [facility] Echocardiography Report: Transthoracic Echo [facility] Date of service: 12/24/2023 10:56:13 AM VESSEL CHEF Ordering physician: JAY BYRD Indication: Syncope, Tachycardia, PVC's Technologist: Dominguez Pinto [facility] Interpreting physician: Sylvie Romero MD PATIENT: Name: [...] epicardial fat pad. [facility] Echocardiography Echocardiography Report: Transthoracic Echo [facility] Date of service: 12/24/2023 10:56:13 AM VESSEL CHEF Ordering physician: JAY BYRD Indication: Syncope, Tachycardia, PVC's Technologist: Dominguez Pinto [facility] Interpreting physician: Sylvie Romero MD PATIENT: Name: [...] * * Final * * * CC DNA13 Medical Image : [id number]. [id number] DynamicsSISUID Normal [facility] 12 Lead EKGon 11-01-2023 12 Lead EKG [facility] [address] [place] [address] 12 Lead EKG 11/01/23 1200 MR#: [id number] Acct: [id number] Name: GREGG ZUNIGA Rep #: [id number] : 2000 23 From: Rubio Paulino MD [...] AGE RELATED Confirmed by Rubio Paulino ([id number]), digital editor AGUSTIN MCCLURE ([id number]) on 11/02/2023 8:19:05 AM Referred By: RUTHIE/ROBIN Confirmed By:Rubio Paulino 11/02/23818 Date Rubio Paulino MD CC: Dr. Antoine Dodson MD; Dr. Kayleen Mckay MD Signed Normal [facility] Basic Metabolic Profile (BMP )on 11-01-2023 BUN/CRE 6.8 RATIO Low 10-20 [facility] Comment on above: Order Comment: 1Y Performed By: #### L 503.7505, L504.2610, L501.2450, L100.0100, L500.4050 #### [facility] [address] [place], [address] CA,Total 9.3 mg/dL Normal 8.5-10.1 [facility] Comment on above: Order Comment: 1Y Performed By: #### L 503.7505, L504.2610, L501.2450, L100.0100, L500.4050 #### [facility] [address] [place], [address] Chloride [Moles/Vol] 107 mmol/L Normal 98-107 [facility] Comment on above: Order Comment: 1Y Performed By: #### L 503.7505, L504.2610, L501.2450, L100.0100, L500.4050 #### [facility] [address] [place], [address] CO2 [Moles/Vol] 23.0 mmol/L Normal 21.0-32.0 [facility] Comment on above: Order Comment: 1Y Performed By: #### L 503.7505, L504.2610, L501.2450, L100.0100, L500.4050 #### [facility] [address] [place], [address] Creatinine [Mass/Vol] 0.74 mg/dL Normal 0.55-1.02 [facility] Comment on above: Order Comment: 1Y Result Comment: The validity of the calculated GFR GFRAA in patients over 70 years has not been determined. Clinical correlation is essential. Performed By: #### L 503.7505, L504.2610, L501.2450, L100.0100, L500.4050 #### [facility] [address] [place], [address] ECRCL 103.66 ml/min Normal [facility] Comment on above: Order Comment: 1Y Performed By: #### L 503.7505, L504.2610, L501.2450, L100.0100, L500.4050 #### [facility] [address] [place], [address] EST GFR - AA 127 mL/min Normal >60 [facility] Comment on above: Order Comment: 1Y Result Comment: Afri can Ivorian GFR Calc Performed By: #### L 503.7505, L504.2610, L501.2450, L100.0100, L500.4050 #### [facility] [address] [place], [address] GAP 7 Normal 5-15 [facility] Comment on above: Order Comment: 1Y Performed By: #### L 503.7505, L504.2610, L501.2450, L100.0100, L500.4050 #### [facility] [address] [place], [address] GFR/1.73 sq M.predicted among non-blacks MDRD (S/P/Bld) [Vol rate/Area] 105 mL/min/{1.73_m2} Normal >60 [facility] Comment on above: Order Comment: 1Y Result Comment: Non- GFR Calc Performed By: #### L 503.7505, L504.2610, L501.2450, L100.0100, L500.4050 #### [facility] [address] [place], [address] Glucose [Mass/Vol] 112 mg/dL High 74-106 [facility] Comment on above: Order Comment: 1Y Result Comment: Fast ing Glucose result from 100 to 125 mg/dL suggests IMPAIRED HOMEOSTASIS per A.D.A. criteria. Performed By: #### L 503.7505, L504.2610, L501.2450, L100.0100, L500.4050 #### [facility] [address] [place], [address] Potassium [Moles/Vol] 3.3 mmol/L Low 3.5-5.1 [facility] Comment on above: Order Comment: 1Y Performed By: #### L 503.7505, L504.2610, L501.2450, L100.0100, L500.4050 #### [facility] [address] [place], [address] Sodium [Moles/Vol] 137 mmol/L Normal 136-145 [facility] Comment on above: Order Comment: 1Y Performed By: #### L 503.7505, L504.2610, L501.2450, L100.0100, L500.4050 #### [facility] [address] [place], [address] Urea nitrogen [Mass/Vol] 5 mg/dL Low 7-18 [facility] Comment on above: Order Comment: 1Y Performed By: #### L 503.7505, L504.2610, L501.2450, L100.0100, L500.4050 #### [facility] [address] [place], [address] CBC W/Diff, Automatedon 10-04-2023 Absolute Lymph 0.44 X10 3/uL Low 0.83-4.51 [facility] Comment on above: Performed By: #### L 503.7505, L504.2610, L501.2450, L100.0100, L500.4050 #### [facility] [address] [place], [address] Absolute Neut 9.2 X10 3/uL High 2.0-7.7 [facility] Comment on above: Performed By: #### L 503.7505, L504.2610, L501.2450, L100.0100, L500.4050 #### [facility] [address] [place], [address] Basophils/100 WBC (Bld) 0.3 % Normal 0-1 [facility] Comment on above: Performed By: #### L 503.7505, L504.2610, L501.2450, L100.0100, L500.4050 #### [facility] [address] [place], [address] Eosinophils/100 WBC (Bld) 3.5 % Normal 0-5 [facility] Comment on above: Performed By: #### L 503.7505, L504.2610, L501.2450, L100.0100, L500.4050 #### [facility] [address] [place], [address] Erythrocyte distribution width (RBC) [Ratio] 12.2 % Normal 11.6-14.6 [facility] Comment on above: Performed By: #### L 503.7505, L504.2610, L501.2450, L100.0100, L500.4050 #### [facility] [address] [place], [address] Hematocrit (Bld) [Volume fraction] 40.5 % Normal 37-47 [facility] Comment on above: Performed By: #### L 503.7505, L504.2610, L501.2450, L100.0100, L500.4050 #### [facility] [address] [place], [address] Hemoglobin (Bld) [Mass/Vol] 14.1 g/dL Normal 12.0-15.0 [facility] Comment on above: Performed By: #### L 503.7505, L504.2610, L501.2450, L100.0100, L500.4050 #### [facility] [address] [place], [address] IG% 0.200 Normal 0.0-0.9 [facility] Comment on above: Result Comment: IG% - Immature Granulocytes (promyelocytes, myelocytes and metamyelocytes) > 1% indicates that a LEFT SHIFT is Present. Performed By: #### L 503.7505, L504.2610, L501.2450, L100.0100, L500.4050 #### [facility] [address] [place], [address] Lymphocytes/100 WBC (Bld) 4.1 % Low 19-41 [facility] Comment on above: Performed By: #### L 503.7505, L504.2610, L501.2450, L100.0100, L500.4050 #### [facility] [address] [place], [address] MCH (RBC) [Entitic mass] 29.9 pg Normal 27.0-32.0 [facility] Comment on above: Performed By: #### L 503.7505, L504.2610, L501.2450, L100.0100, L500.4050 #### [facility] [address] [place], [address] MCHC (RBC) [Mass/Vol] 34.8 g/dL Normal 32-36 [facility] Comment on above: Performed By: #### L 503.7505, L504.2610, L501.2450, L100.0100, L500.4050 #### [facility] [address] [place], [address] MCV (RBC) [Entitic vol] 86.0 fL Normal 81-99 [facility] Comment on above: Performed By: #### L 503.7505, L504.2610, L501.2450, L100.0100, L500.4050 #### [facility] [address] [place], [address] Monocytes/100 WBC (Bld) 6.3 % Normal 0-10 [facility] Comment on above: Performed By: #### L 503.7505, L504.2610, L501.2450, L100.0100, L500.4050 #### [facility] [address] [place], [address] Neutrophils/100 WBC (Bld) 85.6 % High 47-70 [facility] Comment on above: Performed By: #### L 503.7505, L504.2610, L501.2450, L100.0100, L500.4050 #### [facility] [address] [place], [address] Nucleated RBC (Bld) [#/Vol] 0 10*3/uL Normal 0-5 [facility] Comment on above: Performed By: #### L 503.7505, L504.2610, L501.2450, L100.0100, L500.4050 #### [facility] [address] [place], [address] Platelet mean volume (Bld) [Entitic vol] 9.6 fL Normal 6.2-12.0 [facility] Comment on above: Performed By: #### L 503.7505, L504.2610, L501.2450, L100.0100, L500.4050 #### [facility] [address] [place], [address] Platelets (Bld) [#/Vol] 274 10*3/uL Normal 150-450 [facility] Comment on above: Performed By: #### L 503.7505, L504.2610, L501.2450, L100.0100, L500.4050 #### [facility] [address] [place], [address] RBC (Bld) [#/Vol] 4.71 10*6/uL Normal 4.2-5.4 [facility] Comment on above: Performed By: #### L 503.7505, L504.2610, L501.2450, L100.0100, L500.4050 #### [facility] [address] [place], [address] RDW SD 38.5 fl Normal 35.1-43.9 [facility] Comment on above: Performed By: #### L 503.7505, L504.2610, L501.2450, L100.0100, L500.4050 #### [facility] [address] [place], [address] WBC (Bld) [#/Vol] 10.7 10*3/uL Normal 4.4-11.0 [facility] Comment on above: Performed By: #### L 503.7505, L504.2610, L501.2450, L100.0100, L500.4050 #### [facility] [address] [place], [address] Chest 1 View (Portable)on Chest 1 View (Portable) [facility] Imaging Services [address] [place] [address] Chest 1 View (Portable) MR#: [id number] Acct: [id number] Name: GREGG ZUNIGA Rep #: [id number] : 2000 F 23 From: Neville Cardenas MD PCP: Dr. Kayleen Mckay MD Status: [facility] ER Study: Chest 1 View (Portable) Date of Exam: 11/01/23 Exam# [id number] Ordering Dr: Antoine Dodson MD [id number] STUDY: X-RAY CHEST REASON FOR EXAM: Female, [...] Antoine Dodson MD; Dr. Kayleen Mckay MD Sales Representative Advertising: Signed Normal [facility] D-Dimer Quantitative (DVT/PE )on 11-01-2023 D-DIMER QUANT < 0.27 Low 0.27-0.49 [facility] Comment on above: Result Comment: NORM AL D-Dimer level (<0.50) indicates no DVT or PE. Performed By: #### L 503.7505, L504.2610, L501.2450, L100.0100, L500.4050 #### [facility] [address] [place], [address] Emergency Department Summary on 11-01-2023 Emergency Department Summary [facility] Medical Records Department [address] [place] [address] Emergency Department Summary 11/01/23 MR#: [id number] Acct: [id number] Name: GREGG ZUNIGA Rep #: [id number] : 2000 23 From: Antoine Dodson MD PCP: Dr. 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 Non-smoker. [facility] Medical History Physical exam, pre-employment Palpitations Chest [...] of 10. (more content not included)... Normal [facility] L501.4020on 11-01-2023 TROPONIN-I HS 4 pg/mL Normal 3.0-54.0 [facility] Comment on above: Result Comment: Plea se Note: New Test Units and Gender Specific Reference Ranges. For more information see Policy Stat Procedure [place] High Sensitivity Troponin (TNIH) and attachments. Performed By: #### L 503.7505, L504.2610, L501.2450, L100.0100, L500.4050 #### [facility] [address] [place], [address] Order Comment: 1Y Lipaseon 11-01-2023 Lipase [Catalytic activity/Vol] 15 U/L Normal 13-75 [facility] Comment on above: Result Comment: Bacilio casarez note: LIPASE revised reference range effective 22. New Lipase methodology. Expected to produce lower values than the previous assay method. NEW Reference Range: 13 - 75 U/L Performed By: #### L 503.7505, L504.2610, L501.2450, L100.0100, L500.4050 #### [facility] [address] [place], [place], [address] Magnesiumon 11-01-2023 Magnesium [Mass/Vol] 1.8 mg/dL Normal 1.6-2.6 [facility] Comment on above: Order Comment: 1Y Performed By: #### L 503.7505, L504.2610, L501.2450, L100.0100, L500.4050 #### [facility] [address] [place], [address] ,Serum,hCG Quali.on 11-01-2023 HCG, SERUM QUAL Negative Normal [facility] Comment on above: Performed By: #### L 503.7505, L504.2610, L501.2450, L100.0100, L500.4050 #### [facility] [address] [place], [place], [address] Urinalysis, Completeon 10-31 BACTERIA 1+ /hpf Normal None Seen [facility] Comment on above: Order Comment: CLEAN CATCH Performed By: #### L 503.7505, L504.2610, L501.2450, L100.0100, L500.4050 #### [facility] [address] [place], [address] EPI,SQUAMOUS 5-10 SEEN Normal 5-10 [facility] Comment on above: Order Comment: CLEAN CATCH Performed By: #### L 503.7505, L504.2610, L501.2450, L100.0100, L500.4050 #### [facility] [address] [place], [address] Mucus Ql (Urine sed) 0 SEEN Normal [facility] Comment on above: Order Comment: CLEAN CATCH Performed By: #### L 503.7505, L504.2610, L501.2450, L100.0100, L500.4050 #### [facility] [address] [place], [address] RBC 0 SEEN Normal 0-5 [facility] Comment on above: Order Comment: CLEAN CATCH Performed By: #### L 503.7505, L504.2610, L501.2450, L100.0100, L500.4050 #### [facility] [address] [place], [address] WBC 0 SEEN Normal 0-5 [facility] Comment on above: Order Comment: CLEAN CATCH Performed By: #### L 503.7505, L504.2610, L501.2450, L100.0100, L500.4050 #### [facility] [address] 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 [facility] Medical History (Updated 10/17/23 @ [...] DPs. Patient states she has used multiple vdcb-mgt-dwsnfoy topical applications as well as oral Benadryl [...] should symptoms (more content not included)... Normal [facility] Urgent Care Visit Reporton 0 10-17-2023 Urgent Care Visit Report [facility] [address], [address] [place] [address] OFFICE VISIT Date of Service: 10/17/23 MR#: [id number] Acct: [id number] Name: GREGG ZUNIGA Rep #: [id number] : 2000 Provider: ARDEN Berkowitz Age/Sex: 23/F Location: [facility] [place] Status: Signed Intake Vital Signs 08/10/23 10:41 [...] (Severe, Verified 08/10/23 11:28) Rash [facility] Medical History (Updated 10/17/23 @ [...] Adan Signature: Date (if applicable) CC: Normal [facility] Progress Noteon 05-02-2023 Charge Coordinator Authentication Interface Message Text We had the pleasure of seeing Gregg Zuniga in the [facility] on May 02, 2023. As you know, [...] review of social history Gregg lives in [place], [place]. 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 Physical exam showed: Weight - Scale: [...] complexes and a ventricular rate of 86, AK interval of 147 msec, QRS duration of [...] [facility] As Gregg is 23 years of age, she should transition to general adult cardiology for follow-up within the next year. Total encounter time was 20 minutes, which includes chart review, counseling, documentation and/or coordination of care. Normal [facility] Progress Noteon 04-25-2023 Charge Coordinator Authentication Interface Message Text Patient ID: Gregg [...] highschool graduate. (Going to start working at [employer]. Was working at [employer]). Eating: Gregg eats regular meals including fruits [...] (more content not included)... Invalid Interpretation Code [facility] Absolute lymphocyte countOrd ered By: Thea Luque on 10-22-2022 Lymphocytes Auto (Unsp spec) [#/Vol] 2.68 10*3/uL 0.83-4.51 [facility] Basophil percentageOrdered B y: Thea Luque on 10-22-2022 Basophil percentage 5-10 SEEN /hpf 0-5 [facility] Basophils/100 WBC (Bld) 0.4 % 0-1 [facility] Chloride [Moles/Vol] 109 mmol/L 98-107 [facility] Eosinophils/100 WBC (Bld) 2.0 % 0-5 [facility] Glucose [Mass/Vol] 113 mg/dL 74-106 [facility] Comment on above: Fasting Glucose resu lt from 100 to 125 mg/dL suggests IMPAIRED HOMEOSTASIS per A.D.A. criteria. Lactate [Moles/Vol] 1.1 mmol/L 0.4-2.0 [facility] Neutrophils (Bld) [#/Vol] 9.4 10*3/uL 2.0-7.7 [facility] Neutrophils/100 WBC (Bld) 70.5 % 47-70 [facility] Potassium [Moles/Vol] 3.3 mmol/L 3.5-5.1 [facility] Sodium [Moles/Vol] 139 mmol/L 136-145 [facility] WBC (Bld) [#/Vol] 13.3 10*3/uL 4.4-11.0 [facility] Beta hCG serum qualOrdered B y: Thea Luque on 10-22-2022 Beta HCG ( test) Ql Negative [facility] Bilirubin Test strip Ql (U)O rdered By: Thea Luque on 10-22-2022 Bilirubin Ql (U) 1 mg/dL Negative [facility] Comment on above: COLOR OF URINE MAY A FFECT DIPSTICK RESULTS. Blood erythrocytes count (nu mber/volume)Ordered By: Thea Ibarraradha on 10-22-2022 RBC (Bld) [#/Vol] 4.81 10*6/uL 4.2-5.4 [facility] Blood hemoglobin measurement (mass/volume)Ordered By: Thea Ibarraradha on 10-22-2022 Hemoglobin (Bld) [Mass/Vol] 14.1 g/dL 12.0-15.0 [facility] Blood lymphocytes/100 leukoc ytesOrdered By: Tanya Ene on 10-22-2022 Lymphocytes/100 WBC (Bld) 20.1 % 19-41 [facility] Blood monocytes/100 leukocyt esOrdered By: [facility] Luque on 10-22-2022 Monocytes/100 WBC (Bld) 6.5 % 0-10 [facility] Blood platelet mean volumeOr dered By: Thea Luque on 10-22-2022 Platelet mean volume (Bld) [Entitic vol] 10.7 fL 6.2-12.0 [facility] Determination of erythrocyte mean corpuscular volume (MCV)Ordered By: [facility] Lu[facility] on 10-22-2022 MCV (RBC) [Entitic vol] 87.1 fL 81-99 [facility] Hematocrit Auto (Bld) [Volum e fraction]Ordered By: [facility] Lu[facility] on 10-22-2022 Hematocrit (Bld) [Volume fraction] 41.9 % 37-47 [facility] Ketones Test strip Ql (U)Ord ered By: [facility] on 10-22-2022 Ketones Ql (U) 150 mg/dl Negative [facility] Comment on above: CRITICAL VALUE *HCRI TICAL VALUE VERIFIED. CALLED TO ORLIN ESTRADA10/22/221856 Nancy Guzman.RESULTS READ BACK BY SAME . Laboratory - Chemistry and C hemistry - challengeOrdered By: Thea Luque on 10-22-2022 CO2 [Moles/Vol] 21.0 mmol/L 21.0-32.0 [facility] Urea nitrogen/Creatinine [Mass ratio] 11.8 mg/mg 10-20 [facility] - Hematology and Cell countsOrdered By: [facility] on 10-22-2022 Erythrocyte distribution width (RBC) [Entitic vol] 38.5 fL 35.1-43.9 [facility] Erythrocyte distribution width (RBC) [Ratio] 12.1 % 11.6-14.6 [facility] Immature granulocytes/100 WBC (Bld) 0.500 % 0.0-0.9 [facility] Comment on above: IG% - Immature Granu locytes (promyelocytes, myelocytes and metamyelocytes) > 1% indicates that a LEFT SHIFT is Present. MCH (RBC) [Entitic mass] 29.3 pg 27.0-32.0 [facility] Nucleated RBC/100 WBC (Bld) [Ratio] 0 % 0-5 [facility] MCHC Auto (RBC) [Mass/Vol]Or dered By: Thea Ene on 10-22-2022 MCHC (RBC) [Mass/Vol] 33.7 g/dL 32-36 [facility] Mucus LM Ql (Urine sed)Order ed By: Rem Ene on 10-22-2022 Mucus Ql (Urine sed) 1+ /hpf [facility] Nitrite Test strip Ql (U)Ord ered By: Remus Ibarraradha on 10-22-2022 Nitrite Ql (U) Negative Negative [facility] No Panel InformationOrdered By: Thea Ene on 10-22-2022 Estimated Creatinine Clearance Calc 66.39 ml/min [facility] Estimated GFR (MDRD) Amer 88 mL/min >60 [facility] Comment on above: GFR Calc Estimated GFR (MDRD) Non-Af Amer 73 mL/min >60 [facility] Comment on above: Non- GFR Calc Platelets bldOrdered By: Tanya bah Ene on 10-22-2022 Platelets (Bld) [#/Vol] 418 10*3/uL 150-450 [facility] Protein Test strip Ql (U)Ord ered By: Thea Ibarraradha on 10-22-2022 Protein Ql (U) 100 mg/dl Negative [facility] Serum or plasma calcium noa urement (mass/volume)Ordered By: Rem Ene on 10-22-2022 Calcium [Mass/Vol] 9.6 mg/dL 8.5-10.1 [facility] Serum or plasma creatinine m easurement (mass/volume)Ordered By: Rem Ene on 10-22-2022 Creatinine [Mass/Vol] 1.02 mg/dL 0.55-1.02 [facility] Comment on above: The validity of the calculated GFR & GFRAA in patients over 70 years has not been determined. Clinical correlation is essential. Serum or plasma urea nitroge n measurement (mass/volume)Ordered By: Thea Ene on 10-22-2022 Urea nitrogen [Mass/Vol] 12 mg/dL 7-18 [facility] Squamous epithelial cells de tection in urine sediment by light microscopyOrdered By: Thea Luque on 10-22-2022 Epithelial cells.squamous LM Ql (Urine sed) 0-5 SEEN /hpf 5-10 [facility] Thin prep Papanicolaou smear with manual screeningOrdered By: Remus Luque on 10-22-2022 Thin prep Papanicolaou smear with manual screening 9 5-15 [facility] Urine blood detectionOrdered By: Remus Luque on 10-22-2022 RBC Ql (U) 250 /ul Negative [facility] RBC Ql (U) 10-25 SEEN /hpf 0-5 [facility] Urine clarityOrdered By: Rem us Ene on 10-22-2022 Clarity (U) Cloudy Clear [facility] Urine color determinationOrd ered By: Thea Luque on 10-22-2022 Color (U) Brown Yellow [facility] Urine glucose detectionOrder ed By: Thea Luque on 10-22-2022 Glucose Ql (U) Normal mg/dl Normal [facility] Urine leukocyte esterase det ection by dipstickOrdered By: Thea Luque on 10-22-2022 Leukocyte esterase Test strip Ql (U) 100 /ul Negative [facility] Urine pHOrdered By: Thea bowlingr on 10-22-2022 pH (U) 7.0 [pH] 5.0 - 8.0 [facility] Urine sediment bacteria coun t by microscopy (number/high power field)Ordered By: Thea Luque on 10-22-2022 Bacteria LM.HPF (Urine sed) [#/Area] 2 /[HPF] None Seen [facility] Urine specific gravity measu rementOrdered By: Thea Luque on 10-22-2022 Specific gravity (U) [Rel density] 1.015 1.002-1.030 [facility] Urobilinogen Auto test strip Ql (U)Ordered By: Remus Luque on 10-22-2022 Urobilinogen Ql (U) 12 mg/dl Normal [facility] Progress Noteon 07-26-2022 Charge Coordinator Authentication Interface Message Text We had the pleasure of seeing Gregg Zuniga in the [facility] on July 26, 2022. As you know, [...] history Gregg lives with her family in [place], [place]. Physical exam showed: Weight - Scale: [...] complexes and a ventricular rate of 108, AK interval of 172 msec, QRS duration of [...] [facility] We will plan to see Gregg in follow-up in 2 months for repeat evaluation and medication titration as needed. Total encounter time was 30 minutes, which includes chart review, counseling, documentation and/or coordination of care. Normal [facility] - Microbiology an d Antimicrobial susceptibilityon 03-16-2022 SARS-CoV-2 (COVID-19) RNA RICHARD+probe Ql (Unsp spec) Not detected [facility] No Panel Informationon 03-16 Influenza Types A,B Rapid (Clinic) Not detected [facility] Vital Signs Date Time Vital Sign Value Performing Clinician Facility 08-22-2024 08:25-0400 Body mass index (BMI) [Ratio] 32.01 kg/m2 Georgia Lino MD Work Phone: [facility] 08-22-2024 08:25-0400 Body weight 76.84 kg Georgia Lino MD Work Phone: [facility] 08-22-2024 08:25-0400 Diastolic blood pressure 84 mm[Hg] Georgia Lino MD Work Phone: [facility] 08-22-2024 08:25-0400 Systolic blood pressure 124 mm[Hg] Georgia Lino MD Work Phone: [facility] 08-19-2024 14:52-0400 Body mass index (BMI) [Ratio] 32.12 kg/m2 Georgia Lino MD Work Phone: [facility] 08-19-2024 14:52-0400 Body weight 77.11 kg Georgai Lino MD Work Phone: [facility] 08-19-2024 14:52-0400 Diastolic blood pressure 70 mm[Hg] Georgia Lino MD Work Phone: [facility] 08-19-2024 14:52-0400 Systolic blood pressure 126 mm[Hg] Georgia Lino MD Work Phone: [facility] 08-11-2024 10:14-0400 Body mass index (BMI) [Ratio] 32.12 kg/m2 Aminah Ramsey MD Work Phone: [facility] 08-11-2024 10:14-0400 Body weight 77.11 kg Aminah Ramsey MD Work Phone: [facility] 08-11-2024 10:14-0400 Diastolic blood pressure 76 mm[Hg] Aminah Ramsey MD Work Phone: [facility] 08-11-2024 10:14-0400 Systolic blood pressure 122 mm[Hg] Aminah Ramsey MD Work Phone: [facility] 08-07-2024 22:15-0400 Diastolic blood pressure 80 mm[Hg] No Primary Care Physician [facility] 08-07-2024 22:15-0400 Heart rate 67 /min No Primary Care Physician [facility] 08-07-2024 22:15-0400 SaO2% (BldA) [Mass fraction] 97 % No Primary Care Physician [facility] 08-07-2024 22:15-0400 Systolic blood pressure 122 mm[Hg] No Primary Care Physician [facility] 08-07-2024 20:39-0400 Respiratory rate 16 /min No Primary Care Physician [facility] 08-07-2024 19:45-0400 Body temperature 98.8 [degF] No Primary Care Physician [facility] 08-07-2024 16:50-0400 Body height 154.94 cm No Primary Care Physician [facility] 08-07-2024 16:50-0400 Body mass index (BMI) [Ratio] 31.1 kg/m2 No Primary Care Physician [facility] 08-07-2024 16:50-0400 Body weight 74.84 kg No Primary Care Physician [facility] 07-29-2024 10:29-0400 Body mass index (BMI) [Ratio] 31.29 kg/m2 Georgia Lino MD Work Phone: [facility] 07-29-2024 10:29-0400 Body weight 75.12 kg Georgia Lino MD Work Phone: [facility] 07-29-2024 10:29-0400 Diastolic blood pressure 62 mm[Hg] Georgia Lino MD Work Phone: [facility] 07-29-2024 10:29-0400 Systolic blood pressure 120 mm[Hg] Georgia Lino MD Work Phone: [facility] 07-15-2024 10:10-0400 Heart rate 95 /min No Primary Care Physician [facility] 07-15-2024 10:10-0400 SaO2% (BldA) [Mass fraction] 98 % No Primary Care Physician [facility] 07-15-2024 09:04-0400 Body temperature 97 [degF] No Primary Care Physician [facility] 07-15-2024 09:04-0400 Diastolic blood pressure 76 mm[Hg] No Primary Care Physician [facility] 07-15-2024 09:04-0400 Systolic blood pressure 124 mm[Hg] No Primary Care Physician [facility] 07-15-2024 09:02-0400 Body height 156.21 cm No Primary Care Physician [facility] 07-15-2024 09:02-0400 Body mass index (BMI) [Ratio] 30 kg/m2 No Primary Care Physician [facility] 07-15-2024 09:02-0400 Body weight 73.4 kg No Primary Care Physician [facility] 07-14-2024 15:15-0400 Heart rate 95 /min No Primary Care Physician [facility] 07-14-2024 15:15-0400 SaO2% (BldA) [Mass fraction] 98 % No Primary Care Physician [facility] 07-14-2024 14:44-0400 Diastolic blood pressure 84 mm[Hg] No Primary Care Physician [facility] 07-14-2024 14:44-0400 Systolic blood pressure 129 mm[Hg] No Primary Care Physician [facility] 07-14-2024 14:32-0400 Body height 156.21 cm No Primary Care Physician [facility] 07-14-2024 14:32-0400 Body mass index (BMI) [Ratio] 29.9 kg/m2 No Primary Care Physician [facility] 07-14-2024 14:32-0400 Body weight 73.2 kg No Primary Care Physician [facility] 07-14-2024 12:57-0400 Body mass index (BMI) [Ratio] 29.59 kg/m2 Nena Méndez APRN.CNM Work Phone: [facility] 07-14-2024 12:57-0400 Body weight 72.21 kg Nena Méndez APRN.CNM Work Phone: [facility] 07-14-2024 12:57-0400 Diastolic blood pressure 70 mm[Hg] Nena Méndez APRN.CNM Work Phone: [facility] 07-14-2024 12:57-0400 Systolic blood pressure 110 mm[Hg] Nena Méndez APRN.CNM Work Phone: [facility] 07-11-2024 14:57-0400 Body mass index (BMI) [Ratio] 29.56 kg/m2 Shara Martinez MD Work Phone: [facility] 07-11-2024 14:57-0400 Body weight 72.12 kg Shara Martinez MD Work Phone: [facility] 07-11-2024 14:57-0400 Diastolic blood pressure 64 mm[Hg] Shara Martinez MD Work Phone: [facility] 07-11-2024 14:57-0400 Systolic blood pressure 118 mm[Hg] Shara Martinez MD Work Phone: [facility] 07-07-2024 16:07-0400 Body mass index (BMI) [Ratio] 29.74 kg/m2 Georgia Lino MD Work Phone: [facility] 07-07-2024 16:07-0400 Body weight 72.58 kg Georgia Lino MD Work Phone: [facility] 07-07-2024 16:07-0400 Diastolic blood pressure 80 mm[Hg] Georgia Lino MD Work Phone: [facility] 07-07-2024 16:07-0400 Systolic blood pressure 122 mm[Hg] Georgia Lino MD Work Phone: [facility] 06-16-2024 10:25-0400 Diastolic blood pressure 64 mm[Hg] No Primary Care Physician [facility] 06-16-2024 10:25-0400 Heart rate 96 /min No Primary Care Physician [facility] 06-16-2024 10:25-0400 SaO2% (BldA) [Mass fraction] 100 % No Primary Care Physician [facility] 06-16-2024 10:25-0400 Systolic blood pressure 117 mm[Hg] No Primary Care Physician [facility] 06-16-2024 00:39-0400 Body height 154.94 cm No Primary Care Physician [facility] 06-16-2024 00:39-0400 Body mass index (BMI) [Ratio] 29.8 kg/m2 No Primary Care Physician [facility] 06-16-2024 00:39-0400 Body weight 71.66 kg No Primary Care Physician [facility] 06-15-2024 23:26-0400 Diastolic blood pressure 86 mm[Hg] No Primary Care Physician [facility] 06-15-2024 23:26-0400 Heart rate 107 /min No Primary Care Physician [facility] 06-15-2024 23:26-0400 Systolic blood pressure 128 mm[Hg] No Primary Care Physician [facility] 06-15-2024 23:25-0400 Body temperature 99.9 [degF] No Primary Care Physician [facility] 06-15-2024 23:25-0400 Respiratory rate 16 /min No Primary Care Physician [facility] 06-15-2024 23:25-0400 SaO2% (BldA) [Mass fraction] 97 % No Primary Care Physician [facility] 06-15-2024 22:53-0400 Body temperature 98 [degF] No Primary Care Physician [facility] 06-15-2024 22:53-0400 Diastolic blood pressure 83 mm[Hg] No Primary Care Physician [facility] 06-15-2024 22:53-0400 Heart rate 100 /min No Primary Care Physician [facility] 06-15-2024 22:53-0400 Respiratory rate 18 /min No Primary Care Physician [facility] 06-15-2024 22:53-0400 SaO2% (BldA) [Mass fraction] 99 % No Primary Care Physician [facility] 06-15-2024 22:53-0400 Systolic blood pressure 123 mm[Hg] No Primary Care Physician [facility] 06-15-2024 19:56-0400 Body height 154.94 cm No Primary Care Physician [facility] 06-15-2024 19:56-0400 Body mass index (BMI) [Ratio] 30 kg/m2 No Primary Care Physician [facility] 06-15-2024 19:56-0400 Body weight 72.12 kg No Primary Care Physician [facility] 06-13-2024 13:23-0400 Body mass index (BMI) [Ratio] 29.52 kg/m2 Milly Singh MD Work Phone: [facility] 06-13-2024 13:23-0400 Body weight 72.03 kg Milly Singh MD Work Phone: [facility] 06-13-2024 13:23-0400 Diastolic blood pressure 76 mm[Hg] Milly Singh MD Work Phone: [facility] 06-13-2024 13:23-0400 Systolic blood pressure 120 mm[Hg] Milly Singh MD Work Phone: [facility] 06-04-2024 16:35-0400 Body mass index (BMI) [Ratio] 29 kg/m2 Nena Plotts RN TEAM LEADER.CNM Work Phone: [facility] 06-04-2024 16:35-0400 Body weight 70.76 kg Nena Plotts RN TEAM LEADER.CNM Work Phone: [facility] 06-04-2024 16:35-0400 Diastolic blood pressure 70 mm[Hg] Nena Plotts RN TEAM LEADER.CNM Work Phone: [facility] 06-04-2024 16:35-0400 Systolic blood pressure 108 mm[Hg] Nena Plotts RN TEAM LEADER.CNM Work Phone: [facility] 05-08-2024 09:54-0500 Body mass index (BMI) [Ratio] 27.51 kg/m2 Georgia Lino MD Work Phone: [facility] 05-08-2024 09:54-0500 Body weight 67.13 kg Georgia Lino MD Work Phone: [facility] 05-08-2024 09:54-0500 Diastolic blood pressure 62 mm[Hg] Georgia Lino MD Work Phone: [facility] 05-08-2024 09:54-0500 Systolic blood pressure 106 mm[Hg] Georgia Lino MD Work Phone: [facility] 05-02-2024 16:14-0500 Body mass index (BMI) [Ratio] 27.07 kg/m2 Milly Singh MD Work Phone: [facility] 05-02-2024 16:14-0500 Body weight 66.04 kg Milly Singh MD Work Phone: [facility] 05-02-2024 16:14-0500 Diastolic blood pressure 62 mm[Hg] Milly Singh MD Work Phone: [facility] 05-02-2024 16:14-0500 Systolic blood pressure 112 mm[Hg] Milly Singh MD Work Phone: [facility] 04-14-2024 10:19-0500 Body mass index (BMI) [Ratio] 25.84 kg/m2 Martha Santamaria RN TEAM LEADER.CNM Work Phone: [facility] 04-14-2024 10:19-0500 Body weight 63.05 kg Martha Santamaria RN TEAM LEADER.CNM Work Phone: [facility] 04-14-2024 10:19-0500 Diastolic blood pressure 70 mm[Hg] Martha Santamaria RN TEAM LEADER.CNM Work Phone: [facility] 04-14-2024 10:19-0500 Systolic blood pressure 102 mm[Hg] Martha Santamaria RN TEAM LEADER.CNM Work Phone: [facility] 04-08-2024 08:59-0500 Body mass index (BMI) [Ratio] 25.69 kg/m2 Yobany Romero MD Work Phone: [facility] 04-08-2024 08:59-0500 Body weight 62.69 kg Yobany Rmoero MD Work Phone: [facility] 04-08-2024 08:59-0500 Diastolic blood pressure 70 mm[Hg] Yobany Romero MD Work Phone: [facility] 04-08-2024 08:59-0500 Systolic blood pressure 106 mm[Hg] Yobany Romero MD Work Phone: [facility] 03-28-2024 09:35-0500 Body height 156.2 cm Jay Byrd MD Work Phone: [facility] 03-28-2024 09:35-0500 Body mass index (BMI) [Ratio] 24.7 kg/m2 Jay Byrd MD Work Phone: [facility] 03-28-2024 09:35-0500 Body weight 60.28 kg Jay Byrd MD Work Phone: [facility] 03-28-2024 09:35-0500 Diastolic blood pressure 71 mm[Hg] Jay Byrd MD Work Phone: [facility] 03-28-2024 09:35-0500 Heart rate 79 /min Jay Byrd MD Work Phone: [facility] 03-28-2024 09:35-0500 Systolic blood pressure 114 mm[Hg] Jay Byrd MD Work Phone: [facility] 03-24-2024 21:00-0500 Diastolic blood pressure 65 mm[Hg] No Primary Care Physician [facility] 03-24-2024 21:00-0500 Heart rate 66 /min No Primary Care Physician [facility] 03-24-2024 21:00-0500 Respiratory rate 16 /min No Primary Care Physician [facility] 03-24-2024 21:00-0500 SaO2% (BldA) [Mass fraction] 98 % No Primary Care Physician [facility] 03-24-2024 21:00-0500 Systolic blood pressure 124 mm[Hg] No Primary Care Physician [facility] 03-24-2024 17:41-0500 Body mass index (BMI) [Ratio] 25.9 kg/m2 No Primary Care Physician [facility] 03-24-2024 17:41-0500 Body temperature 97.7 [degF] No Primary Care Physician [facility] 03-24-2024 17:41-0500 Body weight 62.14 kg No Primary Care Physician [facility] 03-18-2024 13:28-0500 Body mass index (BMI) [Ratio] 26.02 kg/m2 Cony Cardona APRN.UNDERWEAR FINISHER Work Phone: [facility] 03-18-2024 13:28-0500 Body temperature 98.29 [degF] Cony Cardona APRN.UNDERWEAR FINISHER Work Phone: [facility] 03-18-2024 13:28-0500 Body weight 63.5 kg Cony Ball RN TEAM LEADER.UNDERWEAR FINISHER Work Phone: [facility] 03-18-2024 13:28-0500 Diastolic blood pressure 83 mm[Hg] Cony Cardona RN TEAM LEADER.UNDERWEAR FINISHER Work Phone: [facility] 03-18-2024 13:28-0500 Heart rate 84 /min Conybraden Cardona RN TEAM LEADER.UNDERWEAR FINISHER Work Phone: [facility] 03-18-2024 13:28-0500 Respiratory rate 18 /min Conybraden Cardona RN TEAM LEADER.UNDERWEAR FINISHER Work Phone: [facility] 03-18-2024 13:28-0500 SaO2% (BldA) [Mass fraction] 98 % Conybraden Cardona RN TEAM LEADER.UNDERWEAR FINISHER Work Phone: [facility] 03-18-2024 13:28-0500 Systolic blood pressure 121 mm[Hg] Conybraden Cardona RN TEAM LEADER.UNDERWEAR FINISHER Work Phone: [facility] 03-17-2024 08:28-0500 Body mass index (BMI) [Ratio] 26.25 kg/m2 Milly Singh MD Work Phone: [facility] 03-17-2024 08:28-0500 Body weight 64.05 kg Milly Singh MD Work Phone: [facility] 03-17-2024 08:28-0500 Diastolic blood pressure 64 mm[Hg] Milly Singh MD Work Phone: [facility] 03-17-2024 08:28-0500 Systolic blood pressure 110 mm[Hg] Milly Singh MD Work Phone: [facility] 03-06-2024 13:05-0500 Body mass index (BMI) [Ratio] 26.1 kg/m2 Georgia Lino MD Work Phone: [facility] 03-06-2024 13:05-0500 Body weight 63.69 kg Georgia Lino MD Work Phone: [facility] 03-06-2024 13:05-0500 Diastolic blood pressure 78 mm[Hg] Georgia Lino MD Work Phone: [facility] 03-06-2024 13:05-0500 Systolic blood pressure 110 mm[Hg] Georgia Lino MD Work Phone: [facility] 02-18-2024 08:30-0500 Body mass index (BMI) [Ratio] 25.47 kg/m2 Martha Santamaria RN TEAM LEADER.CNM Work Phone: [facility] 02-18-2024 08:30-0500 Body weight 62.14 kg Martha Santamaria RN TEAM LEADER.CNM Work Phone: [facility] 02-18-2024 08:30-0500 Diastolic blood pressure 74 mm[Hg] Martha Santamaria RN TEAM LEADER.CNM Work Phone: [facility] 02-18-2024 08:30-0500 Systolic blood pressure 116 mm[Hg] Martha Santamaria RN TEAM LEADER.CNM Work Phone: [facility] 01-14-2024 08:23-0500 Body mass index (BMI) [Ratio] 25.76 kg/m2 Angie Java RN TEAM LEADER.UNDERWEAR FINISHER Work Phone: [facility] 01-14-2024 08:23-0500 Body weight 62.87 kg Angie Nnifa RN TEAM LEADER.UNDERWEAR FINISHER Work Phone: [facility] 01-14-2024 08:23-0500 Diastolic blood pressure 74 mm[Hg] Angie Java RN TEAM LEADER.UNDERWEAR FINISHER Work Phone: [facility] 01-14-2024 08:23-0500 Respiratory rate 16 /min Angie Java RN TEAM LEADER.UNDERWEAR FINISHER Work Phone: [facility] 01-14-2024 08:23-0500 Systolic blood pressure 126 mm[Hg] Angie Java RN TEAM LEADER.UNDERWEAR FINISHER Work Phone: [facility] 12-24-2023 08:32-0400 Body height 156.2 cm Jay Byrd MD Work Phone: [facility] 12-24-2023 08:32-0400 Body mass index (BMI) [Ratio] 25.41 kg/m2 Jay Byrd MD Work Phone: [facility] 12-24-2023 08:32-0400 Body weight 62.01 kg Jay Byrd MD Work Phone: [facility] 12-24-2023 08:32-0400 Diastolic blood pressure 84 mm[Hg] Jay Byrd MD Work Phone: [facility] 12-24-2023 08:32-0400 Heart rate 99 /min Jay Byrd MD Work Phone: [facility] 12-24-2023 08:32-0400 Systolic blood pressure 134 mm[Hg] Jay Byrd MD Work Phone: [facility] 07-06-2023 11:32-0400 Body temperature 97.6 [degF] Dr. Kayleen Mckay Work Phone: [facility] 07-06-2023 11:32-0400 Diastolic blood pressure 78 mm[Hg] Dr. Kayleen Mckay Work Phone: 5(533)695-303761 [place] [address] 07-06-2023 11:32-0400 Heart rate 64 /min Dr. Kayleen Mckay Work Phone: 4(123)950-851561 [place] [address] 07-06-2023 11:32-0400 Respiratory rate 18 /min Dr. Kayleen Mckay Work Phone: 8(316)554-119861 [place] [address] 07-06-2023 11:32-0400 SaO2% (BldA) [Mass fraction] 99 % Dr. Kayleen Mckay Work Phone: [facility] 07-06-2023 11:32-0400 Systolic blood pressure 118 mm[Hg] Dr. Kayleen Mckay Work Phone: [facility] 07-06-2023 10:32-0400 Body height 154.[address] Kayleen Mckay Work Phone: [facility] 07-06-2023 10:32-0400 Body mass index (BMI) [Ratio] 25.8 kg/m2 Dr. Kayleen Mckay Work Phone: [facility] 07-06-2023 10:32-0400 Body weight [address] Kayleen Mckay Work Phone: [facility] 06-19-2023 12:18-0400 Body temperature 98.3 [degF] Dr. Kayleen Mckay Work Phone: [facility] 06-19-2023 12:18-0400 Diastolic blood pressure 70 mm[Hg] Dr. Kayleen Mckay Work Phone: [facility] 06-19-2023 12:18-0400 Heart rate 86 /min Dr. Kayleen Mckay Work Phone: [facility] 06-19-2023 12:18-0400 Respiratory rate 12 /min Dr. Kayleen Mckay Work Phone: [facility] 06-19-2023 12:18-0400 SaO2% (BldA) [Mass fraction] 99 % Dr. Kayleen Mckay Work Phone: [facility] 06-19-2023 12:18-0400 Systolic blood pressure 116 mm[Hg] Dr. Kayleen Mckay Work Phone: [facility] 04-14-2023 12:52-0500 Body temperature 98.4 [degF] Michelet Barreto MD Work Phone: [facility] 04-14-2023 12:52-0500 Body weight 64.86 kg Michelet Barreto MD Work Phone: [facility] 04-14-2023 12:52-0500 Diastolic blood pressure 87 mm[Hg] Michelet Barreto MD Work Phone: [facility] 04-14-2023 12:52-0500 Heart rate 88 /min Michelet Barreto MD Work Phone: [facility] 04-14-2023 12:52-0500 Respiratory rate 18 /min Michelet Barreto MD Work Phone: [facility] 04-14-2023 12:52-0500 SaO2% (BldA) [Mass fraction] 99 % Michelet Barreto MD Work Phone: [facility] 02-10-2024 12:52-0500 Systolic blood pressure 138 mm[Hg] Michelet Barreto MD Work Phone: [facility] 10-22-2022 20:18-0400 Diastolic blood pressure 65 mm[Hg] Dr. Kayleen Mckay Work Phone: 7(327)345-320361 [place] [address] 10-22-2022 20:18-0400 Heart rate 72 /min Dr. Kayleen Mckay Work Phone: 7(049)271-616161 [place] [address] 10-22-2022 20:18-0400 Respiratory rate 18 /min Dr. Kayleen Mckay Work Phone: 7(151)990-355161 [place] [address] 10-22-2022 20:18-0400 SaO2% (BldA) [Mass fraction] 100 % Dr. Kayleen Mckay Work Phone: 3(268)080-118654 [address] 10-22-2022 20:18-0400 Systolic blood pressure 116 mm[Hg] Dr. Kayleen Mckay Work Phone: 2(065)952-482154 [address] 10-22-2022 17:39-0400 Body height 154.[address] Kayleen Mckay Work Phone: 4(207)680-867754 [address] 10-22-2022 17:39-0400 Body mass index (BMI) [Ratio] 27.6 kg/m2 Dr. Kayleen Mckay Work Phone: 9(863)901-947233 [place] [address] 10-22-2022 17:39-0400 Body temperature 98.6 [degF] Dr. Kayleen Mckay Work Phone: 5(350)253-696461 [place] [address] 10-22-2022 17:39-0400 Body weight 66.[address] Kayleen Mckay Work Phone: 9(786)022-122861 [place] [address] 09-14-2022 12:18-0400 Diastolic blood pressure 64 mm[Hg] Dr. Kayleen Mckay Work Phone: 4(381)318-241933 [place] [address] 09-14-2022 12:18-0400 Systolic blood pressure 128 mm[Hg] Dr. Kayleen Mckay Work Phone: 9(195)002-477654 [address] 09-14-2022 12:16-0400 Body temperature 98 [degF] Dr. Kayleen Mckay Work Phone: 9(211)723-631254 [address] 09-14-2022 12:16-0400 Heart rate 100 /min Dr. Kayleen Mckay Work Phone: 8(866)896-323061 [place] [address] 09-14-2022 12:16-0400 Respiratory rate 12 /min Dr. Kayleen Mckay Work Phone: 7(750)065-364361 [place] [address] 09-14-2022 12:16-0400 SaO2% (BldA) [Mass fraction] 98 % Dr. Kayleen Mckay Work Phone: 0(551)117-798161 [place] [address] 03-19-2022 10:15-0500 Body temperature 97.5 [degF] Dr. Kayleen Mckay Work Phone: 6(406)320-904661 [place] [address] 03-19-2022 10:15-0500 Diastolic blood pressure 70 mm[Hg] Dr. Kayleen Mckay Work Phone: 3(880)410-644354 [address] 03-19-2022 10:15-0500 Heart rate 109 /min Dr. Kayleen Mckay Work Phone: 3(255)230-183561 [place] [address] 03-19-2022 10:15-0500 Respiratory rate 15 /min Dr. Kayleen Mckay Work Phone: 5(911)679-322261 [place] [address] 03-19-2022 10:15-0500 SaO2% (BldA) [Mass fraction] 98 % Dr. Kayleen Mckay Work Phone: 7(319)331-364561 [place] [address] 03-19-2022 10:15-0500 Systolic blood pressure 108 mm[Hg] Dr. Kayleen Mckay Work Phone: 9([phone] [place] [address] 03-16-2022 09:11-0500 Body temperature 99.4 [degF] Dr. Kayleen Mckay Work Phone: 5(245)219-229061 [place] [address] 03-16-2022 09:11-0500 Diastolic blood pressure 78 mm[Hg] Dr. Kayleen Mckay Work Phone: 8(914)[phone] [place] [address] 03-16-2022 09:11-0500 Heart rate 113 /min Dr. Kayleen Mckay Work Phone: 3(144)103-852361 [place] [address] 03-16-2022 09:11-0500 Respiratory rate 16 /min Dr. Kayleen Mckay Work Phone: 8(270)101-292061 [place] [address] 03-16-2022 09:11-0500 SaO2% (BldA) [Mass fraction] 94 % Dr. Kayleen Mckay Work Phone: [facility] 03-16-2022 09:11-0500 Systolic blood pressure 128 mm[Hg] Dr. Kayleen Mckay Work Phone: [facility] 12-07-2021 13:34-0400 Body temperature 98.4 [degF] Dr. Kayleen Mckay Work Phone: [facility] Work Phone: 12-07-2021 13:34-0400 Diastolic blood pressure 74 mm[Hg] Dr. Kayleen Mckay Work Phone: [facility] Work Phone: 12-07-2021 13:34-0400 Heart rate 83 /min Dr. Kayleen Mckay Work Phone: [facility] Work Phone: 12-07-2021 13:34-0400 Respiratory rate 14 /min Dr. Kayleen Mckay Work Phone: [facility] Work Phone: 12-07-2021 13:34-0400 SaO2% (BldA) [Mass fraction] 99 % Dr. Kayleen Mckay Work Phone: [facility] Work Phone: 12-07-2021 13:34-0400 Systolic blood pressure 114 mm[Hg] Dr. Kayleen Mckay Work Phone: [facility] Work Phone: 09-26-2021 13:19-0400 Body temperature 98.4 [degF] Dr. Kayleen Mckay Work Phone: [facility] Work Phone: 09-26-2021 13:19-0400 Diastolic blood pressure 74 mm[Hg] Dr. Kayleen Mckay Work Phone: [facility] Work Phone: 09-26-2021 13:19-0400 Heart rate 96 /min Dr. Kayleen Mckya Work Phone: [facility] Work Phone: 09-26-2021 13:19-0400 Respiratory rate 14 /min Dr. Kayleen Mckay Work Phone: [facility] Work Phone: 09-26-2021 13:19-0400 SaO2% (BldA) [Mass fraction] 99 % Dr. Kayleen Mckay Work Phone: [facility] Work Phone: 09-26-2021 13:19-0400 Systolic blood pressure 120 mm[Hg] Dr. Kayleen Mckay Work Phone: [facility] Work Phone: 05-05-2021 08:34-0500 Body height 154.[address] Kayleen Mckay Work Phone: [facility] Work Phone: 05-05-2021 08:34-0500 Body mass index (BMI) [Percentile] Per age and sex 86.8 % Dr. Kayleen Mckay Work Phone: [facility] Work Phone: 05-05-2021 08:34-0500 Body mass index (BMI) [Ratio] 26.6 kg/m2 Dr. Kayleen Mckay Work Phone: [facility] Work Phone: 05-05-2021 08:34-0500 Body weight 63.[address] Kayleen Mckay Work Phone: [facility] Work Phone: 05-05-2021 07:34-0500 Body height 154.[address] Kayleen Mckay Work Phone: [facility] Work Phone: 05-05-2021 07:34-0500 Body mass index (BMI) [Ratio] 26.6 kg/m2 Dr. Kayleen Mckay Work Phone: [facility] Work Phone: 05-05-2021 07:34-0500 Body weight 63.[address] Kayleen Mckay Work Phone: [facility] Work Phone: 02-08-2021 10:20-0500 Body temperature 98.1 [degF] Dr. Kayleen Mckay Work Phone: [facility] Work Phone: 02-08-2021 10:20-0500 Diastolic blood pressure 82 mm[Hg] Dr. Kayleen Mckay Work Phone: [facility] Work Phone: 02-08-2021 10:20-0500 Heart rate 90 /min Dr. Kayleen Mckay Work Phone: [facility] Work Phone: 02-08-2021 10:20-0500 Respiratory rate 16 /min Dr. Kayleen Mckay Work Phone: [facility] Work Phone: 02-08-2021 10:20-0500 SaO2% (BldA) [Mass fraction] 99 % Dr. Kayleen Mckay Work Phone: [facility] Work Phone: 02-08-2021 10:20-0500 Systolic blood pressure 124 mm[Hg] Dr. Kayleen Mckay Work Phone: [facility] Work Phone: Encounters Encounter Date Encounter Type Care Provider Facility Start: 08-22-2024 End: 08-22-2024 Patient encounter procedure Georgia Lino MD Work Phone: OB/Gynecology Comment on above: 39 weeks gestation o f (HCC) (Primary Dx); Supervision of high risk in third trimester (HCC) Start: 08-22-2024 End: 08-22-2024 ambulatory KAYLEEN MCKAY Facility:[facility] Start: 08-19-2024 End: 08-19-2024 Patient encounter [...] Start: 08-15-2024 End: 08-15-2024 [facility] Start: 08-15-2024 End: 08-15-2024 Patient encounter procedure Sharonda Pizanocassidy [facility] Comment on above: Population Health Na vigation [...] Start: 08-11-2024 End: 08-11-2024 ambulatory KAYLEEN MCKAY Facility:[facility] Start: 08-07-2024 End: 08-07-2024 ambulatory Georgia Lino [place] [place] Start: 08-07-2024 End: 08-07-2024 ambulatory No Primary Care Physician [facility] Work Phone: Start: 08-07-2024 End: 08-07-[address] [facility] Work Phone: Start: 08-07-2024 End: 08-07-2024 Telephone encounter Georgia Lino MD Work Phone: OB/Gynecology Comment on above: OB-fall Start: 07-29-2024 End: 07-29-2024 Patient encounter procedure Georgia Lino MD Work Phone: OB/Gynecology Comment on above: 35 weeks gestation o f (HCC) (Primary Dx); Supervision of high risk in third trimester (HCC); Need for vaccination Start: 07-29-2024 End: 07-29-2024 ambulatory [facility] Facility:[facility] Start: 07-24-2024 End: 07-24-2024 ambulatory [facility] Facility:[facility] Start: 07-22-2024 End: 07-22-2024 ambulatory [facility] Facility:[facility] Start: 07-17-2024 End: 07-17-2024 Telephone encounter Shara Martinez MD Work Phone: OB/Gynecology Comment on above: OB Contractions Start: 07-17-2024 End: 07-17-2024 ambulatory [facility] Facility:[facility] Start: 07-17-2024 End: 07-17-2024 Emergency department patient visit [facility] Facility:[facility] Start: 07-16-2024 End: 07-16-2024 ambulatory Georgia Lino MD Work Phone: OB/Gynecology Comment on above: Good morning questio n Start: 07-15-2024 End: 07-15-2024 Telephone encounter Jay Byrd MD Work Phone: Cardiology Comment on above: Patient Update (High HR, dizziness, seeing stars) Start: 07-15-2024 End: 07-15-2024 ambulatory No Primary Care Physician [facility] Work Phone: Comment on above: Question Start: 07-15-2024 End: 07-15-[address] Yobany [facility] Work Phone: Start: 07-14-2024 End: 07-14-2024 ambulatory No Primary Care Physician [facility] Work Phone: Comment on above: Question Start: 07-14-2024 End: 07-14-2024 Patient encounter procedure Nena Méndez CNM -[facility] Work Phone: Comment on above: 33 weeks gestation o f (HCC) (Primary Dx); Supervision of high risk in third trimester ([facility]); Vaginal discharge; Low back pain during in third trimester (HCC); Uterine contractions (HCC) Start: 07-14-2024 End: 07-14-2024 ambulatory NENA MÉNDEZ Facility:[facility] Start: 07-11-2024 End: 07-11-2024 Patient encounter procedure Shara Martinez MD Work Phone: OB/Gynecology Comment on above: 33 weeks gestation o f (HCC) (Primary Dx); Supervision of high risk in third trimester ([facility]) Start: 07-11-2024 End: 07-11-2024 [facility] Facility:[facility] Start: 07-10-2024 End: 07-10-2024 Telephone encounter Nena Elanameri ALVAREZCNM Work Phone: OB/Gynecology Comment on above: Breast Pump Start: 07-08-2024 End: 07-08-2024 Telephone encounter Floridalma Mason Ob L&D Work Phone: [facility] 3 L&D Comment on above: Care Coordination (M -Power Consult/Called pt for scheduled consult, no answer) Start: 07-07-2024 End: 07-07-2024 Patient encounter procedure Georgia Lino MD Work Phone: OB/Gynecology Comment on above: Low back pain during in third trimester (HCC) (Primary Dx); 32 weeks gestation of (HCC); Encounter for supervision of normal first in third trimester ([facility]) Start: 07-07-2024 End: 07-07-2024 [facility] Start: 06-27-2024 End: 06-27-2024 [facility] Start: 06-17-2024 End: 06-17-2024 Telephone encounter Georgia Lino MD Work Phone: OB/Gynecology Comment on above: Patient Question Start: 06-15-2024 End: 06-15-2024 Emergency department patient visit No Primary Care Physician -Emergency Department Work Phone: Start: 06-15-2024 End: 06-16-[address] [facility] L[facility] Work Phone: Start: 06-15-2024 End: 06-16-2024 ambulatory No Primary Care Physician [facility] Work Phone: Start: 06-13-2024 End: 08-13-2024 Follow-up encounter Georgia Lino MD Work Phone: OB/Gynecology Start: 06-13-2024 End: 06-13-2024 Patient encounter procedure Milly Singh MD Work Phone: OB/Gynecology Comment on above: Encounter for superv ision of normal first in third trimester (HCC) (Primary Dx); 29 weeks gestation of (HCC); Rh negative state in antepartum period (HCC) Start: 06-13-2024 End: 06-13-2024 ambulatory [place] Facility:[facility] Start: 06-10-2024 End: 06-10-2024 Telephone encounter [...] above: Confused Start: 05-08-2024 End: 05-08-2024 ambulatory [facility] Facility:[facility] Start: 05-08-2024 End: 05-08-2024 Patient encounter procedure Georgia Lino MD Work Phone: OB/Gynecology Comment on above: Screening for diabet es mellitus (Primary Dx); 23 weeks gestation of ; Encounter for supervision of normal first in second trimester; PVC's (premature ventricular contractions); Depression with anxiety; Rh negative state in antepartum period Start: 05-02-2024 End: 05-02-2024 ambulatory [facility] Facility:[facility] Start: 05-02-2024 End: 05-02-2024 Patient encounter [...] Phone: OB/Gynecology Start: 04-14-2024 End: 04-14-2024 ambulatory [facility] Facility:[facility] Start: 04-14-2024 End: 04-14-2024 Patient encounter [...] weeks gestation of Start: 04-08-2024 End: 04-08-2024 [facility] Facility:[facility] Start: 04-08-2024 End: 04-08-2024 Patient encounter [...] (Primary Dx); Palpitation Start: 03-28-2024 End: 03-28-2024 [facility] Facility:[facility] Start: 03-27-2024 End: 03-27-2024 Orders Only Jay Byrd MD Work Phone: Cardiology Comment on above: EKG abnormalities (P rimary Dx) Start: 03-24-2024 End: 03-24-2024 Emergency department patient visit Dr. Len Haile DO -Emergency Department Work Phone: Start: 03-18-2024 End: 03-18-2024 Subsequent hospital visit by physician Dasia [facility] [place] Work Phone: Radiology Comment on above: Injury of right knee , initial encounter [S89.91XA] Start: 03-18-2024 End: 03-18-2024 [facility] Facility:[facility] Start: 03-18-2024 End: 03-18-2024 Office outpatient visit 25 minutes Cony Cardona APRN.CNP Work Phone: [facility] Comment on above: Injury of right knee , initial encounter (Primary Dx) Start: 03-17-2024 End: 03-17-2024 ambulatory [facility] Facility:[facility] Start: 03-17-2024 End: 03-17-2024 Patient encounter procedure Milly Singh MD Work Phone: OB/Gynecology Comment on above: Encounter for superv ision of normal first in second trimester (Primary Dx); 16 weeks gestation of Start: 03-06-2024 End: 03-06-2024 ambulatory [facility] Facility:[facility] Start: 03-06-2024 End: 03-06-2024 Patient encounter procedure Georgia Lino MD Work Phone: OB/Gynecology Comment on above: 14 weeks gestation o f (Primary Dx); Encounter for supervision of normal first in second trimester Start: 02-19-2024 End: 02-20-2024 ambulatory Martha Santamaria APRN.CNChris Work Phone: OB/Gynecology Comment on above: Question. Start: 02-19-2024 End: 02-19-2024 E-mail encounter from caregiver Floridalma Mason Ob L&D Work Phone: [address] Start: 02-19-2024 End: 02-19-2024 Patient encounter procedure Floridalma Isabella Ob L&D Work Phone: [address] Comment on above: M-Power Referral Start: [...] Start: 02-04-2024 End: 02-04-2024 ambulatory Angie Guardadocalf RN TEAM LEADER.UNDERWEAR FINISHER Work Phone: OB/Gynecology Comment on above: Confused Start: 01-14-2024 End: 01-14-2024 ambulatory [facility] Facility:[facility] Start: 01-14-2024 End: 01-14-2024 Patient encounter procedure Angie Ocasio RN TEAM LEADER.UNDERWEAR FINISHER Work Phone: OB/Gynecology Comment on above: 7 weeks gestation of (Primary Dx); Uncertain dates, antepartum, unspecified trimester; Screening for cervical cancer; Encounter for supervision of normal first in first trimester; PVC's (premature ventricular contractions) Start: 01-10-2024 End: 01-10-2024 ambulatory Rick HER [place] [place] Start: 12-27-2023 End: 01-01-2024 ambulatory Jay Byrd MD Work Phone: Cardiology Comment on above: Heart monitor Start: 12-24-2023 End: 12-24-2023 ambulatory [facility] Facility:[facility] Start: 12-24-2023 End: 12-24-2023 ambulatory [facility] Work Phone: Cardiology Comment on above: Event (ZIO PATCH) Start: 12-24-2023 End: 12-24-2023 Patient encounter procedure Jay Byrd MD Work Phone: Cardiology Comment on above: PVC (premature ventr icular contraction) (Primary Dx); Tachycardia Start: 12-24-2023 End: 12-24-2023 ambulatory [facility] Facility:[facility] Start: 11-22-2023 ambulatory [facility] Facility [place] [place] Start: 11-22-2023 End: 11-22-2023 ambulatory Rubio Paulino Facility:[facility] Start: 11-13-2023 End: 11-13-2023 Orders Only aJy Byrd MD Work Phone: Cardiology Comment on above: PVC's (premature basil tricular contractions) (Primary Dx) Start: 11-01-2023 End: 11-01-2023 Emergency department patient visit Kayleen Mckay Facility:[facility] Start: 10-23-2023 End: 10-23-2023 ambulatory Kayleen Mckay Facility:[facility] Start: 10-17-2023 End: 10-17-2023 ambulatory Kayleen Mckay Facility:[facility] Start: 07-06-2023 End: 07-06-2023 Emergency department patient visit Dr. Kayleen Mckay Work Phone: [facility]-Emergency Department Work Phone: Start: 06-19-2023 End: 06-19-[address] Kayleen Mckay Work Phone: [facility] Work Phone: Start: 06-15-2023 End: 06-15-[address] Kayleen Mckay Work Phone: [facility] Work Phone: Start: 05-18-[address] Claribel Mckay Work Phone: [facility] - Other Staff Start: 05-02-2023 End: 05-02-2023 ambulatory [facility] Start: 04-25-2023 End: 04-25-2023 ambulatory SELF REFERRED [facility] Start: 04-14-2023 End: 04-14-2023 Patient encounter procedure Michelet Barreto MD Work Phone: [facility] Comment on above: Acute pain of left s houlder (Primary Dx) Start: 03-28-2023 End: 03-28-2023 ambulatory [facility] Work Phone: Start: 03-28-2023 End: 03-28-2023 Discharged Recurring [facility]-Physical Therapy Work Phone: Start: 10-22-2022 End: 10-22-2022 Emergency department patient visit Dr. Kayleen Mckay Work Phone: [facility]-Emergency Department Work Phone: Start: 09-14-2022 End: 09-14-[address] Kayleen Mckay Work Phone: [facility] Work Phone: Start: 07-26-2022 End: 07-26-2022 ambulatory EDITHSANTINO PABLO [facility] Start: 03-19-2022 End: 03-19-[address] Kayleen Mckay Work Phone: [facility] Start: 03-16-2022 End: 03-16-[address] Kayleen Mckay Work Phone: [facility] Start: 02-22-2022 End: 02-22-[address] Kayleen Mckay Work Phone: [facility] Work Phone: Start: 02-22-2022 End: 02-22-[address] [facility] Start: 01-10-2022 End: 01-10-[address] Kayleen Mckay Work Phone: [facility] Work Phone: Start: 01-10-2022 End: 01-10-[address] Kay[facility]ck[facility] Start: 12-08-2021 End: 12-08-[address] Kayleen Mckay Work Phone: [facility] Start: 12-07-2021 End: 12-07-[address] Kayleen Mckay Work Phone: [facility] Start: 10-05-[address] Claribel [facility]ckay [facility] Start: 09-26-2021 End: 09-26-[address] Kayleen Mckay Work Phone: [facility] Start: 08-19-2021 End: 08-19-[address] Kayleen Mckay Work Phone: [facility]-Physical Therapy Start: 05-25-2021 End: 05-25-[address] Kayleen Mckay Work Phone: [facility] Start: 05-24-[address] Claribel Mckay Work Phone: [facility] Therapy Start: 05-21-2021 End: 05-21-[address] Kayleen Mckay Work Phone: [facility] Start: 05-05-2021 End: 05-05-[address] Kayleen Mckay Work Phone: [facility] Start: 02-15-[address] Kayleen Mckay Work Phone: [facility]-Radiology, [place] Start: 02-08-2021 End: 02-08-[address] Kayleen Mckay Work Phone: [facility] Procedures Date Procedure Procedure Detail Performing Clinician [...] Speci men Type: BLOOD SPECIMEN Ordering Facility: [facility] Address: [address] [place] [address] Performed By: #### 5 [id number], [id number], [id number] #### [facility] CLIA [id number] [address] [place] [address] [place] Start: 04-14-2024 Us preg uterus after 1st trimest 1/ gestation Martha Santamaria RN TEAM LEADER.CNM Work Phone: Start: 03-24-2024 Estimated creatinine clearance No Primary Care Physician Start: 03-24-2024 Measurement of renal function No Primary Care Physician Comment on above: GFR Calc Start: 03-24-2024 Ova OR parasites identification No Primary Care Physician Start: 03-18-2024 Radiologic examinati on knee 1/2 views Cony Cardona RN TEAM LEADER.UNDERWEAR FINISHER Work Phone: Start: 03-17-2024 Antibody screen KAYLEEN MCKAY Comment on above: Order Comment: Speci men Type: BLOOD SPECIMEN Ordering Facility: [facility] Address: [address] [place] [address] Performed By: #### 5 [id number], [id number], [id number] #### [facility] CLIA [id number] [address] [place] [address] [place] Start: 02-18-2024 Us nuchal translucency 1st gestation Angie Ocasio RN TEAM LEADER.UNDERWEAR FINISHER Work Phone: Start: 01-14-2024 Us uterus l imited fetuses Angie Java RN TEAM LEADER.UNDERWEAR FINISHER Work Phone: Start: 07-06-2023 Radiologic examinati on [...] malignant neoplasm of cervix Cervical Cancer Screening [facility] Start: 07-22-2025 Urine microalbumin profile DTaP,Tdap,Td Vaccine (7 - Td or Tdap) [facility] Start: 01-13-2025 GC (Gonorrhea) Screening (18-24) GC (Gonorrhea) Screening (18-24) [facility] Start: 01-13-2025 Screening for Chlamydia trachomatis Chlamydia Screening () [facility] Start: 08-29-2024 End: 08-29-2024 Patient encounter procedure 08/29/2024 4:30 PM EDT Routine Office Visit OB/Gynecology [address] [place] [address] Nena Méndez APRN.CNM [address] [place] [address] [facility] Comment on above: [facility] Start: 08-27-2024 End: 08-27-2024 Patient encounter procedure 08/27/2024 3:50 PM EDT Routine Office Visit OB/Gynecology [address] [place] [address] Georgia Lino MD [address] [place] [address] [facility] Comment on above: [facility] Start: 08-22-2024 End: 08-22-2024 Patient encounter procedure 08/22/2024 4:30 PM EDT Routine Office Visit OB/Gynecology [address] [place] [address] Nena Méndez APRN.CNM [address] [place] [address] [facility] Comment on above: [facility] Start: 08-22-2024 End: 08-22-2024 Patient encounter procedure 08/22/2024 8:50 AM EDT Routine Office Visit OB/Gynecology [address] [place] [address] Georgia Lino MD [address] [place] [address] (Fax) OB - schedule induction - time per RR OB/Gynecology Comment on above: OB - schedule induction - time per RR Start: 08-19-2024 End: 08-19-2024 Patient encounter procedure 08/19/2024 2:50 PM EDT Routine Office Visit OB/Gynecology [address] [place] [address] Georgia Lino MD [address] [place] [address] (Fax) [facility] Comment on above: [facility] Start: 08-11-2024 End: 08-11-2024 Patient encounter procedure 08/11/2024 10:40 AM EDT Routine Office Visit OB/Gynecology [address] [place] [address] Aminah Escobar MD [address] [place] [address] (Fax) [facility] Comment on above: [facility] Start: 08-08-2024 End: 08-08-2024 Patient encounter procedure 08/08/2024 3:45 PM EDT Routine Office Visit OB/Gynecology [address] [place] [address] Haylee Jc APRN.UNDERWEAR FINISHER [address] [place] [place] [address] (Fax) [facility]Gynecology Comment on above: [facility] Start: 08-07-2024 Electrocardiographic procedure [facility] Start: 08-07-2024 Administration of blood product [facility] Start: 08-07-2024 End: 08-07-2024 [facility] Start: 08-07-2024 Nonstress test [facility] Start: 08-07-2024 Obstetric monitoring [facility] Start: 08-07-2024 Vital signs measurements [facility] Start: 08-07-2024 Patient discharge [facility] Start: 07-31-2024 End: 07-31-2024 Nursing evaluation of patient and report 07/31/2024 4:00 PM EDT Nurse Visit OB/Gynecology [address] [place] [address] [place], Nurse Refrigerating Oiler [facility] [address] [place] [address] Nurse appt - T-DAP vaccine OB/Gynecology Comment on above: Nurse appt - T-DAP vaccine Start: 07-31-2024 Tdap vaccine 7 yrs/> im TDAP VACCINE, AGE 7+ YR (ADACEL, BOOSTRIX) Immunization/Injection Routine Need for vaccination Expected: 07/31/2024 (Approximate) [facility] Work Phone: Comment on above: Expected: 07/31/2024 (Approximate) Start: 07-29-2024 End: 07-29-2024 Patient encounter procedure 07/29/2024 11:10 AM EDT Routine Office Visit OB/Gynecology [address] [place] [address] Georgia Lino MD [address] [place] [address] OB OB/Gynecology Comment on above: OB Start: 07-25-2024 End: 07-25-2024 Patient encounter procedure 07/25/2024 3:45 PM EDT Routine Office Visit OB/Gynecology [address] [place] [address] Haylee Jc, [place].UNDERWEAR FINISHER [address] [place] [address] [facility] Comment on above: [facility] Start: 07-22-2024 End: 07-22-2024 Patient encounter procedure 07/22/2024 9:50 AM EDT Routine Office Visit OB/Gynecology [address] [place] [address] Georgia Lino MD [address] [place] [address] OB OB/Gynecology Comment on above: OB Start: 07-15-2024 Nonstress test [facility] Start: 07-15-2024 Obstetric monitoring [facility] Start: 07-15-2024 [facility] Start: 07-15-2024 Vital signs measurements [facility] Start: 07-15-2024 Patient discharge [facility] Start: 07-14-2024 Nonstress test [facility] Start: 07-14-2024 Obstetric monitoring [facility] Start: 07-14-2024 End: 07-14-2024 [facility] Start: 07-14-2024 Vital signs measurements [facility] Start: 07-14-2024 Bacteria identified in Urine by Culture Urine Culture [facility] Start: 07-14-2024 Patient discharge [facility] Start: 07-11-2024 End: 07-11-2024 Patient encounter procedure 07/11/2024 2:40 PM EDT Routine Office Visit OB/Gynecology [address] [place] [address] Shara Martinez MD [address] [place] [address] Ob OB/Gynecology Comment on above: Ob Start: 07-08-2024 End: 07-08-2024 Patient encounter procedure 07/08/2024 9:00 AM EDT Appointment OB/Gynecology [address] [place] [id number] [place] [address] [place] [address] [facility]-Power phone consult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 EDT SEQUENTIAL SCREENINGS The [facility] offers sequential screenings for women who [...] testing. It will require an appointment withour histopathology technician. This is not an ultrasound performed [...] the above symptoms, contact our office at [phone] and ask to speak with anurse. After hours, you can call doctors registry at [phone] OR call [facility] at [phone] ask to have the doctor continuous improvement intern paged. If you consider this an emergency, dial or go to your nearest emergency department. NEED HELP? Are you dealing with a violent or abusive relationship? Are you a victim of rape or sexual assult? Call [facility] ([place]) 24 hour Crisis Hotline: 378.385.3815 or 799-667-2865. MANUAL Your Guide to a Healthy manual is now on-line. Visit [email or web address]/HealthyPregnancyGuide to download your free copy documented in this encounterOhiohealth [facility]04-02-2025 Telephone encounter Note * Telephone Encounter - Georgia Wren RN - 06/04/2024 3:54 PM EDT Called patient. Scheduled an appointment for today. Georgia Wren RN [facility]04-02-2025 Miscellaneous Notes* Telephone Encounter - Georgia Wren RN - 06/04/2024 3:54 PM EDT Called patient. Scheduled an appointment for today. Georgia Wren RN documented in this encounterOhiohealth [facility]04-02-2025 Telephone encounter Note * Telephone Encounter - Georgia Wren RN - 06/04/2024 3:50 PM EDT Spoke with CP. Ok for patient to come to office instead of L&d. Appointment given. Advised thatpatient call the office for urgent request such as decreased FM instead of a Mychart message. Georgia Wren RN [address]02-2025 Miscellaneous Notes* Telephone Encounter - Georgia [...] for an office visit? documented in this encounterOhio[facility]04-02-2025 Telephone encounter Note * Telephone Encounter - Georgia Wren RN - 06/04/2024 2:44 PM EDT 27w5d Do you want her seen for an office visit? [facility]03-06-2025 Progress note* Quick Notes - Georgia [...] - TYPE + SCREEN Georgia Lino MD [facility]03-06-2025 Miscellaneous Notes* Quick Notes - Georgia [...] SCREEN Georgia Lino MD documented in this encounterOhiohealth Dublin [facility] Hospital03-06-2025 Instructions* Patient Instructions* Manas Vogel MA - 05/08/2024 9:52 AM EST SEQUENTIAL SCREENINGS The [facility] offers sequential screenings for women who [...] testing. It will require an appointment withour histopathology technician. This is not an ultrasound performed [...] the above symptoms, contact our office at [phone] and ask to speak with anurse. After hours, you can call doctors registry at [phone] OR call [facility] at [phone] ask to have the doctor continuous improvement intern paged. If you consider this an emergency, dial 91-3 or go to your nearest emergency department. NEED HELP? Are you dealing with a violent or abusive relationship? Are you a victim of rape or sexual assult? Call [facility] ([place]) 24 hour Crisis Hotline: 982.117.1845 or 970-862-1425. MANUAL Your Guide to a Healthy manual is now on-line. Visit [email or web address]/HealthyPregnancyGuide to download your free copy documented in this encounterOhiohealth [facility] Hospital02-28-2025 Progress note* Quick Notes - Milly [...] routine visit next week Milly Singh DO [facility]02-28-2025 Miscellaneous Notes* Quick Notes - Milly [...] week Milly Singh DO documented in this encounterOhiohealth Dublin [facility] Hospital02-28-2025 Instructions* Patient Instructions* Amada Duran LPN - 05/02/2024 4:05 PM EST SEQUENTIAL SCREENINGS The [facility] offers sequential screenings for women who [...] testing. It will require an appointment withour histopathology technician. This is not an ultrasound performed [...] the above symptoms, contact our office at [phone] and ask to speak with anurse. After hours, you can call doctors registry at [phone] OR call [facility] at [phone] ask to have the doctor continuous improvement intern paged. If you consider this an emergency, dial 11-03- or go to your nearest emergency department. NEED HELP? Are you dealing with a violent or abusive relationship? Are you a victim of rape or sexual assult? Call [facility] ([facility] 24 hour Crisis Hotline: 107.767.7104 or 897-150-6483. MANUAL Your Guide to a Healthy manual is now on-line. Visit [email or web address].[email or web address]/HealthyPregnancyGuide to download your free copy documented in this encounterOhiohealth [facility] Hospital02-20-2025 Telephone encounter Note * Telephone Encounter - Katie Yusuf RN - 2024 12:43 PM EST Patient's mother notified. Katie Yusuf RN [facility]02-20-2025 Miscellaneous Notes* Telephone Encounter - Katie [...] over 24 hours. Mother talked to provider continuous improvement intern early this morning and gave 2 imodium [...] advise. Katie Yusuf RN documented in this encounterOhiohealth Dublin [facility] Hospital02-20-2025 Telephone encounter Note * Telephone Encounter - Mary Grace Gaviria RN - 2024 12:16 PM EST Left message to call office. Mary Grace Gaviria RN [facility]02-20-2025 Telephone encounter Note* Telephone Encounter - Yobany Romero MD - 2024 11:52 AM EST Zofran and imodium are her main options. I would recommend going to ED if any signs of dehydration. Yobany Romero MD [facility] Work Phone: 1(114) 878-424902-20-2025 Telephone encounter Note* Telephone Encounter - Katie Yusuf RN - 2024 11:44 AM EST 21w6d Patient's mother calling for her. She has GI virus with vomiting and diarrhea for over 24 hours. Mother talked to provider continuous improvement intern early this morning and gave 2 imodium [...] if possible. Please advise. Katie Yusuf, [facility]02-10-2025 Progress note* Quick Notes - Martha [...] RTO in 4 weeks Martha Santamaria APRN.CNM [facility]02-10-2025 Miscellaneous Notes* Quick Notes - Martha [...] weeks Martha Santamaria APRN.CNM documented in this encounterOhiohealth [facility] Hospital02-10-2025 Instructions* Patient Instructions* Bruno Srivastava MA - 04/14/2024 10:18 AM EST SEQUENTIAL SCREENINGS The [facility] offers sequential screenings for women who [...] testing. It will require an appointment withour histopathology technician. This is not an ultrasound performed [...] the above symptoms, contact our office at [phone] and ask to speak with anurse. After hours, you can call doctors registry at [phone] OR call [facility] at [phone] ask to have the doctor continuous improvement intern paged. If you consider this an emergency, dial 9-- or go to your nearest emergency department. NEED HELP? Are you dealing with a violent or abusive relationship? Are you a victim of rape or sexual assult? Call [facility] ([place]) 24 hour Crisis Hotline: 480.175.1090 or 689-347-9090. MANUAL Your Guide to a Healthy manual is now on-line. Visit [facility].[email or web address]/HealthyPregnancyGuide to download your free copy documented in this encounterOhiohealth Dublin [facility] Hospital02-04-2025 Progress note* Quick Notes - Yobany [...] Advised on hydration and zofrchely Romero MD [facility] Work Phone: [phone] 633-831602-04-2025 Miscellaneous Notes* Quick Notes - Yobany Romero [...] and zofrchely Romero MD documented in this encounterOhiohealth Dublin [facility] Hospital02-04-2025 Instructions* Patient Instructions* Minerva Gordon MA - 04/08/2024 8:57 AM EST SEQUENTIAL SCREENINGS The [facility] offers sequential screenings for women who [...] testing. It will require an appointment withour histopathology technician. This is not an ultrasound performed [...] the above symptoms, contact our office at [phone] and ask to speak with anurse. After hours, you can call doctors registry at [phone] OR call [facility] at [phone] ask to have the doctor continuous improvement intern paged. If you consider this an emergency, dial 1-5-5 or go to your nearest emergency department. NEED HELP? Are you dealing with a violent or abusive relationship? Are you a victim of rape or sexual assult? Call [facility] ([place]) 24 hour Crisis Hotline: 245.613.9517 or 890-772-6530. MANUAL Your Guide to a Healthy manual is now on-line. Visit [email or web address]/HealthyPregnancyGuide to download your free copy documented in this encounterOhiohealth [facility] Hospital02-03-2025 Telephone encounter Note * Telephone Encounter - Mary Grace Gaviria RN - 04/07/2024 4:54 PM EST Patient called back and appointment scheduled. Mary Grace Gaviria RN [facility]02-03-2025 Miscellaneous Notes* Telephone Encounter - Mary [...] appointment. Martha Santamaria APRN.CNM documented in this encounterOhiohealth Dublin [facility] Hospital02-03-2025 Telephone encounter Note * Telephone Encounter - Katie Yusuf RN - 04/07/2024 4:48 PM EST Left message for patient to call office. Katie Yusuf RN [facility]02-03-2025 Telephone encounter Note* Telephone Encounter - Martha Santamaria APRN.CNM - 04/07/2024 4:45 PM EST I would recommend appointment. Martha Santamaria APRN.CNM [facility]01-24-2025 Instructions* Patient Instructions* Jay Byrd MD - 03/28/2024 9:56 AM EST The echocardiogram in December showed that the heart pumping function is 63%. This is very good. EKG is also normal. Therefore, please do not worry too much about heart arrhythmias. We can plan for a return visit as needed. documented in this encounterOhiohealth Dublin [facility] Hospital01-24-2025 History of Present illness Narrative* Jay Byrd MD - 03/28/2024 9:15 AM EST Images from the original note were not included. [facility] Department of Cardiovascular Medicine SECTION OF CARDIAC PACING and ELECTROPHYSIOLOGY OUTPATIENT VISIT DATE March 28, 2024 OUTPATIENT VISIT TYPE ESTABLISHED PRIMARY CARE PHYSICIAN: Kayleen Mckay MD [facility] [place] [id number] CHIEF COMPLAINT: Follow-up for tachycardia and syncope [...] in office 12/24/2023. She was given a [employer] monitor and mailed it back but monitor was never received by [employer] (confirmed with company). Echo 12/24/2023 showed EF=63% [...] as obtained by others. CONTACT INFORMATION: Jay yBrd MD documented in this encounterOhiohealth Dublin Methodist Hospital01-24-2025 NoteHNO ID: [id number] Author: JAY BYRD MD Service: ? Author Type: Physician Type: Progress Notes Filed: 03/28/2024 10:26 Note Text: [facility] Department of Cardiovascular Medicine SECTION OF CARDIAC PACING and ELECTROPHYSIOLOGY OUTPATIENT VISIT DATE March 28, 2024 OUTPATIENT VISIT TYPE ESTABLISHED PRIMARY CARE PHYSICIAN: Kayleen Mckay MD [facility] [place] [id number] CHIEF COMPLAINT: Follow-up for tachycardia and syncope [...] in office 12/24/2023. She was given a [employer] monitor and mailed it back but monitor was never received by [employer] (confirmed with company). Echo 12/24/2023 showed EF=63% [...] obtained by others. CONTACT INFORMATION: Jay Byrd, [facility]01-14-2025 History of Present illness Narrative* Duke Fairchild [...] PATIENT PRESENTS WITH AN IMPLANTABLE OR ATTACHED REGULATORY AFFAIRS INTERNSHIP: No RADIOLOGY DEPARTMENT: General X-ray: Exam(s) Completed: Lower Extremity X- Ray(s): Knee, AP / LAT Right PERIPHERAL IV DATA: Not applicable SIGNED BY: RT Min(Sean) March 18, 2024 1:54 PM documented in this encounterOhiohealth Dublin Methodist Hospital01-14-2025 NoteHNO ID: [id number] Author: DUKE FAIRCHILD RT(R) Service: ? Author Type: Clinical Social Work Aide Type: Progress Notes Filed: 03/18/2024 14:02 Note [...] PATIENT PRESENTS WITH AN IMPLANTABLE OR ATTACHED REGULATORY AFFAIRS INTERNSHIP: No RADIOLOGY DEPARTMENT: General X-ray: Exam(s) Completed: Lower Extremity X-Ray(s): Knee, AP / LAT Right PERIPHERAL IV DATA: Not applicable SIGNED BY: RT Min(R) March 18, 2024 1:54 [facility]01-14-2025 NoteHNO ID: [id number] Author: CONY CARDONA APRN.[employer]DERWE[employer] FINISHER Service: ? Author Type: Nurse Practitioner Type: [...] testing/treatment Medical Decision Making Level: [facility] History of Present illness Narrative* Cony Cardona APRN.IVETH - 03/18/2024 1:33 PM EST Images from the original note were not included. This note was created using [email or web address].comriter. Subjective Gregg Zuniga is a 23 year [...] Level: 4 - Moderate documented in this encounterOhiohealth Dublin Methodist Hospital01-13-2025 Progress note* Quick Notes - Milly [...] - RTO 4 wks Milly Singh DO [facility]01-13-2025 Miscellaneous Notes* Quick Notes - Milly [...] wks Milly Singh DO documented in this encounterOhiohealth Dublin Methodist Hospital01-13-2025 Instructions* Patient Instructions* Minerva Gordon MA - 03/17/2024 8:24 AM EST SEQUENTIAL SCREENINGS The [facility] offers sequential screenings for women who [...] testing. It will require an appointment withour histopathology technician. This is not an ultrasound performed [...] the above symptoms, contact our office at [phone] and ask to speak with anurse. After hours, you can call doctors registry at [phone] OR call [facility] at [phone] ask to have the doctor continuous improvement intern paged. If you consider this an emergency, dial 9--8 or go to your nearest emergency department. NEED HELP? Are you dealing with a violent or abusive relationship? Are you a victim of rape or sexual assult? Call [facility] ([place]) 24 hour Crisis Hotline: 750.866.3290 or 702-330-6123. MANUAL Your Guide to a Healthy manual is now on-line. Visit [facility].org/HealthyPregnancyGuide to download your free copy documented in this encounterOhiohealth Dublin [facility] Hospital01-02-2025 Progress note* Quick Notes - Georgia [...] ICD9: V22.0, ICD10: Z34.02 Georgia Lino MD [facility]01-02-2025 Miscellaneous Notes* Quick Notes - Georgia [...] Z34.02 Georgia Lino MD documented in this encounterOhiohealth Dublin Methodist Hospital01-02-2025 Instructions* Patient Instructions* Minerva Gordon MA - 03/06/2024 1:03 PM EST SEQUENTIAL SCREENINGS The [facility] offers sequential screenings for women who [...] testing. It will require an appointment withour histopathology technician. This is not an ultrasound performed [...] the above symptoms, contact our office at [phone] and ask to speak with anurse. After hours, you can call doctors registry at [phone] OR call [facility] at [phone] ask to have the doctor continuous improvement intern paged. If you consider this an emergency, dial 9-- or go to your nearest emergency department. NEED HELP? Are you dealing with a violent or abusive relationship? Are you a victim of rape or sexual assult? Call [facility] ([place]) 24 hour Crisis Hotline: 961.326.9835 or 260-445-0829. MANUAL Your Guide to a Healthy manual is now on-line. Visit [email or web address].org/HealthyPregnancyGuide to download your free copy documented in this encounterOhiohealth Dublin Methodist Hospital12-16-2024 Telephone encounter Note * Telephone Encounter - Mary Grace Gaviria RN - 02/18/2024 12:02 PM EST Lab order pended. Patient 12w3d, seen in office today. Mary Grace Gaviria RN [facility]12-16-2024 Miscellaneous Notes* Telephone Encounter - Mary Grace Gavriia RN - 02/18/2024 12:02 PM EST Lab order pended. Patient 12w3d, seen in office today. Mary Grace Gaviria RN documented in this encounterOhiohealth Dublin Methodist Hospital12-16-2024 Progress note* Quick Notes - Martha [...] RTO in 4 weeks Martha Santamaria APRN.CNM [facility]12-16-2024 Miscellaneous Notes* Quick Notes - Martha [...] weeks Martha Santamaria APRN.CNM documented in this encounterOhiohealth Dublin Methodist Hospital12-16-2024 Instructions* Patient Instructions* Martha Santamaria APRN.CNM [...] to help control my nausea and vomiting? [employer] has a helpful fact sheet on nausea in with recommendations. You can review it here: https://[employer].org/fact-sheets/cdqmrw-erjqilxu-pfbobbrhv-nvp/pdf/. Also, eating small meals often, drinking plenty [...] . For more information, please see the [employer] fact sheet Paternal Exposures at https://mothertobaby.org/fact-sheets/vhdturmq-qrjoqkaip-yqchpvmyw/pdf/. SEQUENTIAL SCREENINGS The [facility] offers sequential screenings for women who [...] testing. It will require an appointment withour histopathology technician. This is not an ultrasound performed [...] the above symptoms, contact our office at [phone] and ask to speak with anurse. After hours, you can call doctors registry at [phone] OR call [facility] at [phone] ask to have the doctor continuous improvement intern paged. If you consider this an emergency, dial 3-3-7 or go to your nearest emergency department. NEED HELP? Are you dealing with a violent or abusive relationship? Are you a victim of rape or sexual assult? Call [facility] ([place]) 24 hour Crisis Hotline: 120.441.5700 or 427-317-1104. MANUAL Your Guide to a Healthy manual is now on-line. Visit [facility].org/HealthyPregnancyGuide to download your free copy documented in this [facility] Telephone encounter Note * Telephone Encounter - Martha Santamaria APRN.CNM - 02/04/2024 11:20 AM EST Round ligament pain and normal discomfort. Good body mechanics, not to stretch or sudden movements which can make this worse. Warm bath, chiropractic can help. Martha Santamaria APRN.CNM [facility] Work Phone: [phone] Miscellaneous Notes* Telephone Encounter - Martha Santamaria APRN.CNM - 02/04/2024 11:20 AM EST Round ligament pain and normal discomfort. Good body mechanics, not to stretch or sudden movements which can make this worse. Warm bath, chiropractic can help. Martha Santamaria APRN.CNM * Telephone Encounter - Angie Ocasio APRN.CNP - 02/04/2024 11:04 AM EST I have no further recommendation. Should refer to continuous improvement intern provider. Angie Ocasio APRN.CNP * Telephone Encounter - Katie Yusuf RN - 02/04/2024 10:57 AM EST 10w3d Responded to patient. Please advise if any further recommendations. Katie Yusuf RN documented in this encounterOhio[facility]12-[facility]24 Telephone encounter Note * Telephone Encounter - Angie Ocasio APRN.CNP - 02/04/2024 11:04 AM EST I have no further recommendation. Should refer to continuous improvement intern provider. Angie Ocasio APRN.CNP [facility]12-02-[facility]24 Telephone encounter Note* Telephone Encounter - Katie Yusuf RN - 02/04/2024 10:57 AM EST 10w3d Responded to patient. Please advise if any further recommendations. Katie Yusuf RN [facility]11-11-2024 NoteHNO ID: [id number] Author: ANGIE OCASIO APRN.UNDERWEAR FINISHER Service: ? Author Type: Nurse Practitioner Type: Progress Notes Filed: 01/14/2024 09:06 Note Text: Patient declined dressmaker garment fitter. INITIAL OB ASSESSMENT HPI: Gregg is a [...] the following (please check all that apply)? Nursing Home Social Worker; Help Desk Associate care Social History: Do you have any [...] Partner: Name: Jose Koehler Age: 22 Occupation: [employer] working Gender: Male PAST MEDICAL HISTORY Diagnosis [...] discussed with the Patient or Patient's Authorized Hand Mounter. As applicable, any other physician, advance practice provider, medical student, or other health professional student that will be observing or involved in the sensitive examination for educational or t (more content not included)...[facility]11-11-[facility] History of Present illness Narrative* Angie Ocasio APRN.UNDERWEAR FINISHER - 01/14/2024 7:53 AM EST Patient declined dressmaker garment fitter. INITIAL OB ASSESSMENT HPI: Gregg is a [...] the following (please check all that apply)? Nursing Home Social Worker; Help Desk Associate care Social History: Do you have any [...] Partner: Name: Jose Koehler Age: 22 Occupation: [employer] working Gender: Male PAST MEDICAL HISTORY Diagnosis [...] discussed with the Patient or Patient's Authorized Hand Mounter. As applicable, any other physician, advance practice provider, medical student, or other health professional student that will be observing or involved in the sensitive examination for educational or training purposes was discussed with the Patient or Authorized Hand Mounter. The Patient or Authorized Hand Mounter has agreed to proceed with the sensitive [...] activity, CRL consistent with LMP. Angie Ocasio, RN TEAM LEADER.UNDERWEAR FINISHER ASSESSMENT: 23 year old No obstetric history on file. at Unknown wks gestational age PLAN: 1) Patient oriented to practice. Patient given new OB orientation folder. Discussed nutrition, folic acid supplementation, dietary guidelines, exercise, smoking, alcohol, caffeine, and drug use. Discussed gestational weight gain guidelines. Discussed routine OB labs including STD/HIV. Discussed how to access Your guide to a health and the Abrasive Band Winder. Reviewed midwifery and livestock farmer services that are available. 2) Screening: Hemoglobin [...] prn. Angie Ocasio APRN.CNP documented in this encounterOhio[facility]11-11-2024 Instructions* Patient Instructions* Amada Duran LPN - 01/14/2024 7:53 AM EST Please select the following link to access the [facility] Your Guide to a Healthy . [email or web address] documented in this encounterOhio[facility] Hospital10-21-2024 NoteHNO ID: [id number] Author: FAMILIA LIGHT Tech Service: ? Author Type: Technologist Type: Progress Notes Filed: 12/24/2023 10:01 Note Text: EVENT MONITOR DISPOSABLE PATCH INSTRUCTIONS Patient Name: Gregg Zuniga [facility] Number: [id number] Skin prepped and cleansed with alcohol Patch secured to prepped area Monitor Activated Serial #: [id number] Patient Instructed: Prescribed order timeframe Bathing guidelines Usage of event button and diary documentation Return of monitor at the end of prescribed order Call with problems [phone] or [phone]. [phone] Patient expresses a good understanding of instructions [facility] History of Present illness Narrative* Familia Light Tech - 12/24/2023 10:00 AM EDT EVENT MONITOR DISPOSABLE PATCH INSTRUCTIONS Patient Name: Gregg Zuniga [facility] Number: [id number] Skin prepped and cleansed with alcohol Patch secured to prepped area Monitor Activated Serial #: [id number] Patient Instructed: Prescribed order timeframe Bathing guidelines Usage of event button and diary documentation Return of monitor at the end of prescribed order Call with problems [phone] or [phone]. [phone] Patient expresses a good understanding of instructions Rosi Adams documented in this encounterOhio[facility]10-21-2024 Note* Addendum Note - Enrique Mccoy - 12/24/2023 9:59 AM EDTAddended by: ENRIQUE MCCOY on: 12/24/2023 09:59 AM Modules accepted: Orders [facility]10-21-2024 Miscellaneous Notes* Addendum Note - Enrique Mccoy - 12/24/2023 9:59 AM EDTAddended by: ENRIQUE MCCOY on: 12/24/2023 09:59 AM Modules accepted: Orders documented in this encounterOhio[facility] Hospital10-21-2024 NoteEducation (CARDMN) GREGG ZUNIGA ([id number]) 4 F Date Time Provider Department 12/24/23 [...] mouth. Encounter Status:Closed by FAMILIA LIGHT on 12/24/23[facility] Instructions* Patient Instructions* Jay Byrd MD - [...] visit in 3 months. documented in this encounterOhio[facility] Hospital10-21-2024 History of Present illness Narrative* Jay Byrd MD - 12/24/2023 8:30 AM EDT Images from the original note were not included. [facility] Department of Cardiovascular Medicine SECTION OF CARDIAC PACING and ELECTROPHYSIOLOGY OUTPATIENT VISIT DATE December 24, 2023 OUTPATIENT VISIT TYPE NEW PRIMARY CARE PHYSICIAN: Kayleen Mckay MD [address] [place] [address] REFERRING PHYSICIAN: Edith Pablo [facility] [address] CHIEF COMPLAINT: Consultation for tachycardias and syncope [...] clothing. 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 She has caffeine a few times [...] sinus tachycardia. - Patient to continue using Geekatoo Watch to monitor heart rate and capture [...] INFORMATION: Jay Byrd MD documented in this encounterOhio[facility]10-21-2024 NoteHNO ID: [id number] Author: JAY BYRD MD Service: ? 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 She has caffeine a few times [...] couplets or supraventricular tachycardia. (more content not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 01/28/11 Jay Byrd MD [address] [place] [address] Primary Staff Physician Cardiology 12/24/23 Edith Pablo MD [address] [place] [address] Carpenters Supervisor Pediatric Cardiology 12/24/23 Computer Support Specialist Instructor Relationship Specialty Start Date End Date Kayleen Mckay MD PCP - General Pediatrics 01/28/11 Jay Byrd MD [address] [place] [address] Primary Staff Physician Cardiology 12/24/23 Edith Pablo MD [address] [place] [address] Carpenters Supervisor Pediatric Cardiology 12/24/23 Computer Support Specialist Instructor Relationship Specialty Start Date End Date Kayleen Mckay MD PCP - General Pediatrics 01/28/11 Jay Byrd MD [address] [place] [address] Primary Staff Physician Cardiology 12/24/23 Edith Pablo MD [address] [place] [address] Carpenters Supervisor Pediatric Cardiology 12/24/23 Computer Support Specialist Instructor Relationship Specialty Start Date End Date Kayleen Mckay MD PCP - General Pediatrics 01/28/11 Jay Byrd MD [address] [place] [address] Primary Staff Physician Cardiology 12/24/23 Edith Pablo MD [address] [place] [address] Carpenters Supervisor Pediatric Cardiology 12/24/23 Computer Support Specialist Instructor Relationship Specialty Start Date End Date Kayleen Mckay MD PCP - General Pediatrics 01/28/11 Jay Byrd MD [address] [place] [address] Primary Staff Physician Cardiology 12/24/23 Edith Pablo MD [address] [place] [address] Carpenters Supervisor Pediatric Cardiology 12/24/23 Computer Support Specialist Instructor Relationship Specialty Start Date End Date Kayleen Mckay MD PCP - General Pediatrics 01/28/11 Jay Byrd MD [address] [place], [place] [address] Primary Staff Physician Cardiology 12/24/23 Edith Pablo MD [address] [place], [place] [address] Carpenters Supervisor Pediatric Cardiology 12/24/23 Computer Support Specialist Instructor Relationship Specialty Start Date End Date Kayleen Mckay MD PCP - General Pediatrics 01/28/11 Jay Byrd MD [address] [place] [address] Primary Staff Physician Cardiology 12/24/23 Edith Pablo MD [address] [place], [place] [id number] Carpenters Supervisor Pediatric Cardiology 12/24/23 Team Status: Active Member Role Status Dates No Primary Care Physician Primary Care Provider Active Team Status: Inactive Member Role Status Dates No Primary Care Physician Primary Care Provider Active Start: March 24, 2024 End: March 24, 2024 Dr. Len Haile , DO Attending Provider Active Start: March 24, 2024 End: March 24, 2024 Dr. eLn Haile , DO Emergency Provider Active Start: [...] June 15, 2024 End: June 16, 2024 Computer Support Specialist Instructor Relationship Specialty Start Date End Date Kayleen Mckay MD PCP - General Pediatrics 01/28/11 Jay Byrd MD [address] [place] [address] Primary Staff Physician Cardiology 12/24/23 Edith Pablo MD [address] [place] [address] Carpenters Supervisor Pediatric Cardiology 12/24/23 Computer Support Specialist Instructor Relationship Specialty Start Date End Date Kayleen Mckay MD PCP - General Pediatrics 01/28/11 Jay Byrd MD [address] [place] [address] Primary Staff Physician Cardiology 12/24/23 Edith Pablo MD [address] [place] [address] Carpenters Supervisor Pediatric Cardiology 12/24/23 Computer Support Specialist Instructor Relationship Specialty Start Date End Date Kayleen Mckay MD PCP - General Pediatrics 01/28/11 Jay Byrd MD [address] [place] [address] Primary Staff Physician Cardiology 12/24/23 Edith Pablo MD [address] [place] [address] Carpenters Supervisor Pediatric Cardiology 12/24/23 Computer Support Specialist Instructor Relationship Specialty Start Date End Date Kayleen Mckay MD PCP - General Pediatrics 01/28/11 Jay Byrd MD [address] [place] [address] Primary Staff Physician Cardiology 12/24/23 Edith Pablo MD [address] [place], [place] [phone] Carpenters Supervisor Pediatric Cardiology 12/24/23 Computer Support Specialist Instructor Relationship Specialty Start Date End Date Kayleen Mckay MD (Fax) PCP - General Pediatrics 01/28/11 Jay Byrd MD [address] [place] [address] Primary Staff Physician Cardiology 12/24/23 Edith Pablo MD [address] [place], [place] [phone] Carpenters Supervisor Pediatric Cardiology 12/24/23 Team Status: Inactive Member Role Status Dates No Primary Care Physician Primary Care Provider Active Start: July 14, 2024 End: July 14, 2024 Nena Méndez CNM Attending Provider Active Start: July 14, 2024 End: July 14, 2024 Nena Méndez CNM Referring Provider Active Start: July 14, 2024 End: July 14, 2024 Computer Support Specialist Instructor Relationship Specialty Start Date End Date Kayleen Mckay MD (Fax) PCP - General Pediatrics 01/28/11 Jay Byrd MD [address] [place] [address] Primary Staff Physician Cardiology 12/24/23 Edith Pablo MD [address] [place], [place] [phone] Carpenters Supervisor Pediatric Cardiology 12/24/23 Team Status: Inactive Member Role Status Dates No Primary Care Physician Primary Care Provider Active Start: July 15, 2024 End: July 15, 2024 Dr. Yobany Romero MD Attending Provider Active Start: July 15, 2024 End: July 15, 2024 Dr. Yobany Romero MD Referring Provider Active Start: July 15, 2024 End: July 15, 2024 Computer Support Specialist Instructor Relationship Specialty Start Date End Date Kayleen Mckay MD PCP - General Pediatrics 01/28/11 Jay Byrd MD [address] [place], [place] [address] Primary Staff Physician Cardiology 12/24/23 Edith Pablo MD [address] [place], [place] [phone] Carpenters Supervisor Pediatric Cardiology 12/24/23 Computer Support Specialist Instructor Relationship Specialty Start Date End Date Kayleen Mckay MD PCP - General Pediatrics 01/28/11 Jay Byrd MD [address] [place] [address] Primary Staff Physician Cardiology 12/24/23 Edith Pablo MD [address] [place], [place] [id number] Carpenters Supervisor Pediatric Cardiology 12/24/23 Computer Support Specialist Instructor Relationship Specialty Start Date End Date Kayleen Mckay MD (Fax) PCP - General Pediatrics 01/28/11 Jay Byrd MD [address] [place], [place] [address] Primary Staff Physician Cardiology 12/24/23 Edith Pablo MD [address] [place], [place] [phone] Carpenters Supervisor Pediatric Cardiology 12/24/23 Computer Support Specialist Instructor Relationship Specialty Start Date End Date Kayleen Mckay MD (Fax) PCP - General Pediatrics 01/28/11 Jay Byrd MD [address] [place], [place] [address] Primary Staff Physician Cardiology 12/24/23 Edith Pablo MD [address] [place], [place] [id number] Carpenters Supervisor Pediatric Cardiology 12/24/23 Team Status: Inactive Member Role Status Dates No Primary Care Physician Primary Care Provider Active Start: August 07, 2024 End: August 07, 2024 Dr. Georgia Lino MD Attending Provider Active Start: August 07, 2024 End: August 07, 2024 Dr. Georgia Lino MD Referring Provider Active Start: August 07, 2024 End: August 07, 2024 Computer Support Specialist Instructor Relationship Specialty Start Date End Date Kayleen Mckay MD (Fax) PCP - General Pediatrics 01/28/11 Jay Byrd MD [address] [place] [address] Primary Staff Physician Cardiology 12/24/23 Edith Pablo MD [address] [place] [address] Carpenters Supervisor Pediatric Cardiology 12/24/23 Computer Support Specialist Instructor Relationship Specialty Start Date End Date Kayleen Mckay MD PCP - General Pediatrics 01/28/11 Jay Byrd MD [address] [place] [address] Primary Staff Physician Cardiology 12/24/23 Edith Pablo MD [address] [place] [address] Carpenters Supervisor Pediatric Cardiology 12/24/23 Computer Support Specialist Instructor Relationship Specialty Start Date End Date Kayleen Mckay MD (Fax) PCP - General Pediatrics 01/28/11 Jay Byrd MD [address] [place] [address] Primary Staff Physician Cardiology 12/24/23 Edith Pablo MD [address] [place] [address] Carpenters Supervisor Pediatric Cardiology 12/24/23 Computer Support Specialist Instructor Relationship Specialty Start Date End Date Kayleen Mckay MD PCP - General Pediatrics 01/28/11 Jay Byrd MD [address] [place] [address] Primary Staff Physician Cardiology 12/24/23 Edith Pablo MD [address] [place], [place] [phone] Carpenters Supervisor Pediatric Cardiology 12/24/23 Computer Support Specialist Instructor Relationship Specialty Start Date End Date Kayleen Mckay MD PCP - General Pediatrics 01/28/11 Jay Byrd MD [address] [place] [address] Primary Staff Physician Cardiology 12/24/23 Edith Pablo MD [address] [place], [place] [phone] Carpenters Supervisor Pediatric Cardiology 12/24/23 Computer Support Specialist Instructor Relationship Specialty Start Date End Date Kayleen Mckay MD PCP - General Pediatrics 01/28/11 Jay Byrd MD [address] [place] [address] Primary Staff Physician Cardiology 12/24/23 Edith Pablo MD [address] [place], [place] [phone] Carpenters Supervisor Pediatric Cardiology 12/24/23 Source Comments (unrecognize d section and content) In the event this informatio n is protected by the Federal Confidentiality of Alcohol and Drug Abuse Patient Records regulations: The Federal rules restrict any use of the information to criminally investigate or prosecute any alcohol or drug abuse patient.[facility] the event this information is protected by the Federal Confidentiality of Alcohol and Drug Abuse Patient Records regulations: The Federal rules restrict any use of the information to criminally investigate or prosecute any alcohol or drug abuse patient.[facility] the event this information is protected by the Federal Confidentiality of Alcohol and Drug Abuse Patient Records regulations: The Federal rules restrict any use of the information to criminally investigate or prosecute any alcohol or drug abuse patient.[facility] the event this information is protected by the Federal Confidentiality of Alcohol and Drug Abuse Patient Records regulations: The Federal rules restrict any use of the information to criminally investigate or prosecute any alcohol or drug abuse patient.[facility] the event this information is protected by the Federal Confidentiality of Alcohol and Drug Abuse Patient Records regulations: The Federal rules restrict any use of the information to criminally investigate or prosecute any alcohol or drug abuse patient.[facility] the event this information is protected by the Federal Confidentiality of Alcohol and Drug Abuse Patient Records regulations: The Federal rules restrict any use of the information to criminally investigate or prosecute any alcohol or drug abuse patient.[facility] the event this information is protected by the Federal Confidentiality of Alcohol and Drug Abuse Patient Records regulations: The Federal rules restrict any use of the information to criminally investigate or prosecute any alcohol or drug abuse patient.[facility] the event this information is protected by the Federal Confidentiality of Alcohol and Drug Abuse Patient Records regulations: The Federal rules restrict any use of the information to criminally investigate or prosecute any alcohol or drug abuse patient.[facility] the event this information is protected by the Federal Confidentiality of Alcohol and Drug Abuse Patient Records regulations: The Federal rules restrict any use of the information to criminally investigate or prosecute any alcohol or drug abuse patient.[facility] the event this information is protected by the Federal Confidentiality of Alcohol and Drug Abuse Patient Records regulations: The Federal rules restrict any use of the information to criminally investigate or prosecute any alcohol or drug abuse patient.[facility] the event this information is protected by the Federal Confidentiality of Alcohol and Drug Abuse Patient Records regulations: The Federal rules restrict any use of the information to criminally investigate or prosecute any alcohol or drug abuse patient.[facility] HospitalIn the event this information is protected by the Federal Confidentiality of Alcohol and Drug Abuse Patient Records regulations: The Federal rules restrict any use of the information to criminally investigate or prosecute any alcohol or drug abuse patient.[facility] HospitalIn the event this information is protected by the Federal Confidentiality of Alcohol and Drug Abuse Patient Records regulations: The Federal rules restrict any use of the information to criminally investigate or prosecute any alcohol or drug abuse patient.[facility] HospitalIn the event this information is protected by the Federal Confidentiality of Alcohol and Drug Abuse Patient Records regulations: The Federal rules restrict any use of the information to criminally investigate or prosecute any alcohol or drug abuse patient.[facility] HospitalIn the event this information is protected by the Federal Confidentiality of Alcohol and Drug Abuse Patient Records regulations: The Federal rules restrict any use of the information to criminally investigate or prosecute any alcohol or drug abuse patient.[facility] HospitalIn the event this information is protected by the Federal Confidentiality of Alcohol and Drug Abuse Patient Records regulations: The Federal rules restrict any use of the information to criminally investigate or prosecute any alcohol or drug abuse patient.[facility] HospitalIn the event this information is protected by the Federal Confidentiality of Alcohol and Drug Abuse Patient Records regulations: The Federal rules restrict any use of the information to criminally investigate or prosecute any alcohol or drug abuse patient.[facility] HospitalIn the event this information is protected by the Federal Confidentiality of Alcohol and Drug Abuse Patient Records regulations: The Federal rules restrict any use of the information to criminally investigate or prosecute any alcohol or drug abuse patient.[facility] HospitalIn the event this information is protected by the Federal Confidentiality of Alcohol and Drug Abuse Patient Records regulations: The Federal rules restrict any use of the information to criminally investigate or prosecute any alcohol or drug abuse patient.[facility] HospitalIn the event this information is protected by the Federal Confidentiality of Alcohol and Drug Abuse Patient Records regulations: The Federal rules restrict any use of the information to criminally investigate or prosecute any alcohol or drug abuse patient.[facility] HospitalIn the event this information is protected by the Federal Confidentiality of Alcohol and Drug Abuse Patient Records regulations: The Federal rules restrict any use of the information to criminally investigate or prosecute any alcohol or drug abuse patient.[facility] HospitalIn the event this information is protected by the Federal Confidentiality of Alcohol and Drug Abuse Patient Records regulations: The Federal rules restrict any use of the information to criminally investigate or prosecute any alcohol or drug abuse patient.[facility] HospitalIn the event this information is protected by the Federal Confidentiality of Alcohol and Drug Abuse Patient Records regulations: The Federal rules restrict any use of the information to criminally investigate or prosecute any alcohol or drug abuse patient.[facility] HospitalIn the event this information is protected by the Federal Confidentiality of Alcohol and Drug Abuse Patient Records regulations: The Federal rules restrict any use of the information to criminally investigate or prosecute any alcohol or drug abuse patient.[facility] HospitalIn the event this information is protected by the Federal Confidentiality of Alcohol and Drug Abuse Patient Records regulations: The Federal rules restrict any use of the information to criminally investigate or prosecute any alcohol or drug abuse patient.[facility] HospitalIn the event this information is protected by the Federal Confidentiality of Alcohol and Drug Abuse Patient Records regulations: The Federal rules restrict any use of the information to criminally investigate or prosecute any alcohol or drug abuse patient.[facility] HospitalIn the event this information is protected by the Federal Confidentiality of Alcohol and Drug Abuse Patient Records regulations: The Federal rules restrict any use of the information to criminally investigate or prosecute any alcohol or drug abuse patient.[facility] HospitalIn the event this information is protected by the Federal Confidentiality of Alcohol and Drug Abuse Patient Records regulations: The Federal rules restrict any use of the information to criminally investigate or prosecute any alcohol or drug abuse patient.[facility] HospitalIn the event this information is protected by the Federal Confidentiality of Alcohol and Drug Abuse Patient Records regulations: The Federal rules restrict any use of the information to criminally investigate or prosecute any alcohol or drug abuse patient.[facility] HospitalIn the event this information is protected by the Federal Confidentiality of Alcohol and Drug Abuse Patient Records regulations: The Federal rules restrict any use of the information to criminally investigate or prosecute any alcohol or drug abuse patient.[facility] HospitalIn the event this information is protected by the Federal Confidentiality of Alcohol and Drug Abuse Patient Records regulations: The Federal rules restrict any use of the information to criminally investigate or prosecute any alcohol or drug abuse patient.[facility] HospitalIn the event this information is protected by the Federal Confidentiality of Alcohol and Drug Abuse Patient Records regulations: The Federal rules restrict any use of the information to criminally investigate or prosecute any alcohol or drug abuse patient.[facility] HospitalIn the event this information is protected by the Federal Confidentiality of Alcohol and Drug Abuse Patient Records regulations: The Federal rules restrict any use of the information to criminally investigate or prosecute any alcohol or drug abuse patient.[facility] HospitalIn the event this information is protected by the Federal Confidentiality of Alcohol and Drug Abuse Patient Records regulations: The Federal rules restrict any use of the information to criminally investigate or prosecute any alcohol or drug abuse patient.[facility] HospitalIn the event this information is protected by the Federal Confidentiality of Alcohol and Drug Abuse Patient Records regulations: The Federal rules restrict any use of the information to criminally investigate or prosecute any alcohol or drug abuse patient.[facility] HospitalIn the event this information is protected by the Federal Confidentiality of Alcohol and Drug Abuse Patient Records regulations: The Federal rules restrict any use of the information to criminally investigate or prosecute any alcohol or drug abuse patient.[facility] HospitalIn the event this information is protected by the Federal Confidentiality of Alcohol and Drug Abuse Patient Records regulations: The Federal rules restrict any use of the information to criminally investigate or prosecute any alcohol or drug abuse patient.[facility] HospitalIn the event this information is protected by the Federal Confidentiality of Alcohol and Drug Abuse Patient Records regulations: The Federal rules restrict any use of the information to criminally investigate or prosecute any alcohol or drug abuse patient.[facility] HospitalIn the event this information is protected by the Federal Confidentiality of Alcohol and Drug Abuse Patient Records regulations: The Federal rules restrict any use of the information to criminally investigate or prosecute any alcohol or drug abuse patient.[facility] HospitalIn the event this information is protected by the Federal Confidentiality of Alcohol and Drug Abuse Patient Records regulations: The Federal rules restrict any use of the information to criminally investigate or prosecute any alcohol or drug abuse patient.[facility] HospitalIn the event this information is protected by the Federal Confidentiality of Alcohol and Drug Abuse Patient Records regulations: The Federal rules restrict any use of the information to criminally investigate or prosecute any alcohol or drug abuse patient.[facility] HospitalIn the event this information is protected by the Federal Confidentiality of Alcohol and Drug Abuse Patient Records regulations: The Federal rules restrict any use of the information to criminally investigate or prosecute any alcohol or drug abuse patient.[facility] HospitalIn the event this information is protected by the Federal Confidentiality of Alcohol and Drug Abuse Patient Records regulations: The Federal rules restrict any use of the information to criminally investigate or prosecute any alcohol or drug abuse patient.[facility] HospitalIn the event this information is protected by the Federal Confidentiality of Alcohol and Drug Abuse Patient Records regulations: The Federal rules restrict any use of the information to criminally investigate or prosecute any alcohol or drug abuse patient.[facility] HospitalIn the event this information is protected by the Federal Confidentiality of Alcohol and Drug Abuse Patient Records regulations: The Federal rules restrict any use of the information to criminally investigate or prosecute any alcohol or drug abuse patient.[facility] HospitalIn the event this information is protected by the Federal Confidentiality of Alcohol and Drug Abuse Patient Records regulations: The Federal rules restrict any use of the information to criminally investigate or prosecute any alcohol or drug abuse patient.[facility] HospitalIn the event this information is protected by the Federal Confidentiality of Alcohol and Drug Abuse Patient Records regulations: The Federal rules restrict any use of the information to criminally investigate or prosecute any alcohol or drug abuse patient.[facility] HospitalIn the event this information is protected by the Federal Confidentiality of Alcohol and Drug Abuse Patient Records regulations: The Federal rules restrict any use of the information to criminally investigate or prosecute any alcohol or drug abuse patient.[facility] HospitalIn the event this information is protected by the Federal Confidentiality of Alcohol and Drug Abuse Patient Records regulations: The Federal rules restrict any use of the information to criminally investigate or prosecute any alcohol or drug abuse patient.[facility] HospitalIn the event this information is protected by the Federal Confidentiality of Alcohol and Drug Abuse Patient Records regulations: The Federal rules restrict any use of the information to criminally investigate or prosecute any alcohol or drug abuse patient.[facility] HospitalIn the event this information is protected by the Federal Confidentiality of Alcohol and Drug Abuse Patient Records regulations: The Federal rules restrict any use of the information to criminally investigate or prosecute any alcohol or drug abuse patient.[facility] HospitalIn the event this information is protected by the Federal Confidentiality of Alcohol and Drug Abuse Patient Records regulations: The Federal rules restrict any use of the information to criminally investigate or prosecute any alcohol or drug abuse patient.[facility] HospitalIn the event this information is protected by the Federal Confidentiality of Alcohol and Drug Abuse Patient Records regulations: The Federal rules restrict any use of the information to criminally investigate or prosecute any alcohol or drug abuse patient.[facility] HospitalIn the event this information is protected by the Federal Confidentiality of Alcohol and Drug Abuse Patient Records regulations: The Federal rules restrict any use of the information to criminally investigate or prosecute any alcohol or drug abuse patient.[facility] HospitalIn the event this information is protected by the Federal Confidentiality of Alcohol and Drug Abuse Patient Records regulations: The Federal rules restrict any use of the information to criminally investigate or prosecute any alcohol or drug abuse patient.[facility] HospitalIn the event this information is protected by the Federal Confidentiality of Alcohol and Drug Abuse Patient Records regulations: The Federal rules restrict any use of the information to criminally investigate or prosecute any alcohol or drug abuse patient.[facility] HospitalIn the event this information is protected by the Federal Confidentiality of Alcohol and Drug Abuse Patient Records regulations: The Federal rules restrict any use of the information to criminally investigate or prosecute any alcohol or drug abuse patient.[facility] Reason for Visit (unrecogniz ed section and content) Reason Comments Shoulder Injury L shoulder Reason Onset Date Comments Palpitations 12/24/2023 Reason Comments Event ZIO PATCH Reason Onset Date Comments Care 02/18/2024 Reason Comments US Specialty Diagnoses / Procedures Referred By Contac t Referred To Contact [facility] Diagnoses 7 weeks gestation of Procedures NUCHAL TRANSLUCENCY WHI US NUCHAL TRANSLUCENCY 1ST GESTATION Angie Ocasio, RN TEAM LEADER.UNDERWEAR FINISHER [address] [place] [address] [facility] [address] [place] [address] Referral ID Status Reason Start Date Expiration Date V isits Requested Visits Authorized [id number] Closed Auto-Generate d Referral 01/14/2024 01/13/2025 1 1 Reason Onset Date Comments Care 03/06/2024 Reason Onset Date Comments Care 03/17/2024 Reason Comments Knee Injury R knee injury x toda y Reason Onset Date Comments Arrhythmia 03/28/2024 Reason Onset Date Comments Care 04/08/2024 Reason Onset Date Comments Care 04/14/2024 Specialty Diagnoses / Procedures Referred By Vaibhav t Referred To Contact [facility] Diagnoses 12 weeks gestation of Encounter for supervision of normal first in second trimester Procedures OBSTETRIC ULTRASOUND WHI US PREG UTERUS AFTER 1ST TRIMEST GESTATION Martha Santamaria APRN.CNChris [address] [place] [address] Phone: tel: fax: [facility] [address] [place] [address] Referral ID Status Reason Start Date Expiration Date V isits Requested Visits Authorized [id number] Closed Auto-Generate d Referral 02/18/2024 02/17/2025 1 [...] section and content) DATE CREATED AUTHOR 05/03/2023 [facility] DATE CREATED AUTHOR AUTHOR'S ORGANIZ ATION 07/11/2024 [facility] DATE CREATED AUTHOR AUTHOR'S ORGANIZ ATION 07/18/2024 [facility] DATE CREATED AUTHOR AUTHOR'S ORGANIZ ATION 08/17/2024 [facility] DATE CREATED AUTHOR AUTHOR'S ORGANIZ ATION 08/22/2024 [facility] FOR RECORDS PERTAINING TO PATIENTS WHO ARE [...] BE BASED ON THE PRIMARY CLINICAL RECORDS. [facility]. provides no warranty or guarantee of the accuracy or completeness of information in this document.
[2024-08-23] MEDS: Lactated Ringers 1,000 ML 999 ML IV (13:16)
[2024-08-23] MEDS: Lactated Ringers 1,000 ML 200 ML IV ×2 (14:46→20:30)
[2024-08-23] MEDS: fentaNYL-bupivacaine (epidural) 100 ML BAG EPIDURAL ×2 (14:46→21:03)
[2024-08-23] MEDS: LACTATED RINGERS 500 ML 999 ML IV (16:08)
--- NOTE | 2024-08-23 16:43 | PN.OBGYN_ITS ---
Subjective Subjective AROM for clear fluid. Very anterior cervix 4cm/70/-2. Comfortable with epidural. Pitocin at 16. Objective Data Objective Data Vital Signs: Vital Signs Temp Pulse Resp BP Pulse Ox 97.5 F L 79 16 112/68 99 08/23/24 15:52 08/23/24 16:18 08/23/24 15:52 08/23/24 16:18 08/23/24 15:52 Weight: 76.827 kg Body Mass Index (BMI) 32.0 Intake & Output: Intake and Output for Last 24 Hours 08/21/24 08/22/24 08/23/24 23:59 23:59 23:59 Intake Total 9.53 / 9.53 938.13 / 938.13 Balance 9.53 / 9.53 938.13 / 938.13 Lab / Micro Data 08/22/24 19:45 Labs: Laboratory Results - last 24 hr 08/22/24 19:45: WBC 14.0 H, RBC 3.92 L, Hgb 12.5, Hct 36.0 L, MCV 91.8, MCH 31.9, MCHC 34.7, RDW Std Deviation 44.1 H, RDW Coeff of Karrie 13.2, Plt Count 209, MPV 10.5, Immature Gran % (Auto) 1.000 H, Neut % (Auto) 74.2 H, Lymph % (Auto) 16.3 L, Andrews % (Auto) 6.2, Eos % (Auto) 1.9, Baso % (Auto) 0.4, Absolute Neuts (auto) 10.4 H, Absolute Lymphs (auto) 2.28, Nucleated RBC % 0, Syphilis Total Ab Nonreactive, Blood Type O NEGATIVE, Antibody Screen POSITIVE, Antibody Identification ANTI-D NST FHR Rate Baby A Baseline: 145 Variability:: Moderate Accelerations:: 15 x 15 Decelerations:: None NST Reactive:: Yes Uterine Activity:: q3-4 Assessment & Plan (1) Elective induction of labor planned: (2) 39 weeks gestation of : PLAN: Plan Continue active management
[2024-08-23] MEDS: Oxytocin 15 Units/NS 250ml 15 UNITS/250 ML IV.SOLN 14 UNITS IV (17:21)
[2024-08-23] MEDS: Ondansetron 4 MG/2 ML Vial IV (21:03)
[2024-08-24] VITALS (20 sets, daily range): BP systolic 108–140; BP diastolic 56–82; PULSE 70–122; RESP 14–24; TEMP 36.1–37.1; O2SAT 93–100
[2024-08-24] MEDS: proCHLORPERazine 10 MG/2 ML Vial IV (00:10)
[2024-08-24] MEDS: Acetaminophen 500 MG Tablet PO (02:19)
[2024-08-24] MEDS: Sodium Citrate/Citric Acid 30 ML UDC PO (02:20)
--- NOTE | 2024-08-24 02:20 | PCM.PN.OB ---
Subjective Subjective Patient complete and pushing for 3 hours. Ineffective maternal effort. Patient consented for vacuum assisted vaginal delivery. Risks and benefits discussed. The vacuum was applied and with 3 contractions, 3 pulls per contraction and maternal effort there was minimal descent of vertex. One pop-off. Patient consented for PCS after failed vacuum extraction. Objective Data Objective Data Vital Signs: Vital Signs Temp Pulse Resp BP Pulse Ox 97.3 F L 70 14 117/76 99 08/24/24 01:13 08/24/24 01:13 08/24/24 01:13 08/24/24 01:13 08/24/24 00:17 Weight: 76.827 kg Body Mass Index (BMI) 32.0 Intake & Output: Intake and Output for Last 24 Hours 08/22/24 08/23/24 08/24/24 23:59 23:59 23:59 Intake Total 9.53 / 9.53 3093.07 / 3093.07 936.67 / 936.67 Output Total 900 / 900 Balance 9.53 / 9.53 2193.07 / 2193.07 936.67 / 936.67 Lab / Micro Data 08/22/24 19:45 Assessment & Plan (1) Elective induction of labor planned: (2) 39 weeks gestation of : PLAN: Plan proceed with PCS
[2024-08-24] MEDS: Cefazolin 2 GM in 0.9% Normal Saline (100mL Bag) 100 ML IV (02:28)
[2024-08-24] MEDS: Azithromycin 500 MG in 0.9% Normal Saline (250mL Bag) 250 ML 250 MG IV (03:05)
--- NOTE | 2024-08-24 03:19 | OP.PCM_ITS ---
Assessment & Plan (1) S/P : (2) Rh negative state in antepartum period: Maternal Data Information Final JEM: 08/29/24 Gestational age: 39+2 Operative Report (OB) Details Procedure Type: low transverse Date of Procedure: 08/24/24 Procedure Start Time: 02:47 Procedure Stop Time: 03:15 Time of Delivery: 02:51 Pre-Operative Diagnosis: Failure of Descent Post-Operative Diagnosis: Same as Pre-operative diagnosis Classification: Scheduled Type of Anesthesia: Spinal Drain: Church to straight drain Estimated Blood Loss: 500 cc Findings Description of surgery: Patient pushed for 3 hours. Vacuum extraction was attempted. After 3 pulls and one pop-off there was minimal descent. Patient taken to the OR with Church in placed. Her epidural was dosed for . She was prepped and draped in the normal sterile fashion. A Pfannenstiel incision was made and carried down to the underlying fascia. The fascia was incised in the midline and extended laterally. The fascia was dissected from the muscle. The muscles divided in the midline. The peritoneum was entered bluntly and extended manually. A bladder blade was placed. A bladder flap was created. A low transverse incision was made and extended bluntly. The head was elevated to the incision. The shoulders delivered easily. There was a cord around the neck x 1. The cried upon delivery. The cord was cut and clamped. The placenta was delivered with yessica traction. The uterus was exteriorized and cleared of all clot and debris. The incision was repaired with 1-0 Vicryl x 2. The uterus was returned the abdomen, The gutter cleared of all clots. The peritoneum was closed with 2-0 Monocryl. The fascia was closed with 1-0 Vicryl. The subcutaneous tissue was reapproximated with 2-0 Monocryl The skin was closed with 4-0. I performed the major parts of the procedure with the RFNA assisting with retraction and closing the skin. The sponge lap and needle count was correct x 2 Surgical findings: normal uterus tubes and ovaries Presentation: Vertex and ROP Amniotic Membrane Rupture Type: Artificial Amniotic Fluid Description: Clear Placental Delivery Description: Expressed Placenta Disposition: [facility] Specimen collected: No Cord Vessel Description: 3 Vessels Cord Entanglement: Around neck x 1, loose Nuchal Cord Compression: Without compression A gender: Male (1 minute): 9 (5 minute): 9 Delayed Cord Clamping: Yes Hotel Maintenance Worker coke still cleaner: Yes Shrimp Boat Captain: Bobo Garg Tasks completed by first officer and flight instructor: Opening & closing and Retracting Additional assistant professor nurse education?: No Complications Complications: No
[2024-08-24] MEDS: Ketorolac 30 MG/ML Syringe IV ×4 (03:56→22:33)
[2024-08-24] MEDS: Oxytocin 15 Units/NS 250ml 15 UNITS/250 ML IV.SOLN 83 UNITS IV (04:12)
--- NOTE | 2024-08-24 05:19 | NURSING ---
epidural catheter removed, blue tip intact
[2024-08-24] MEDS: Lactated Ringers 1,000 ML 100 ML IV (07:13)
[2024-08-24] MEDS: Acetaminophen 500 MG Tablet 1000 MG PO ×3 (10:01→22:32)
[2024-08-24] MEDS: Senna/Docusate Sodium 1 Tablet PO (10:02)
[2024-08-24] MEDS: Sertraline 50 MG Tablet 25 MG PO (10:02)
[2024-08-24] MEDS: Metoprolol(XL)Succ 25 MG Tablet PO (10:02)
[2024-08-24] MEDS: Ondansetron 4 MG/2 ML Vial IV (10:47)
[2024-08-24] MEDS: Rho(D) Immune Globulin 300 MCG (1500 Unit) Syringe IV (10:49)
[2024-08-25 00:30] VITALS: BP 119/79; PULSE 95; RESP 14; TEMP 36.4; O2SAT 96
[2024-08-25 03:30] VITALS: BP 109/62; PULSE 77; RESP 14; TEMP 36.5; O2SAT 97
[2024-08-25] MEDS: Acetaminophen 500 MG Tablet 1000 MG PO ×2 (06:24→12:40)
[2024-08-25] MEDS: Ibuprofen 600 MG Tablet PO ×2 (06:24→12:39)
[2024-08-25 06:43] LABS: Absolute Lymphocyte Count 2.36 X10^3/uL (0.83-4.51); Absolute Neutrophil Count 11.1 X10^3/uL (2.0-7.7); Basophil# 0.04 X10^3/uL; Basophil% 0.3 % (0-1); Eosinophil# 0.38 X10^3/uL; Eosinophils% 2.5 % (0-5); Hematocrit 28.9 % (37-47); Hemoglobin 9.6 g/dL (12.0-15.0); Lymphocyte # 2.36 X10^3/ul (0.83-4.51); Lymphocyte % 15.8 % (19-41); Mean Corp Hgb Conc 33.2 g/dL (32-36); Mean Corpuscular Hgb 31.8 pg (27.0-32.0); Mean Corpuscular Volume 95.7 fL (81-99); Mean Platelet Vol. 10.3 fl (6.2-12.0); Monocyte% 6.7 % (0-10); NRBC Flagged by Analyzer 0 % (0-5); Neutrophil # 11.05 X10^3/uL (2.7-7.7); Neutrophil % 74.1 % (47-70); Platelet Count 179 K/mm3 (150-450); RBC Distribution Width CV 13.8 % (11.6-14.6); RBC Distribution Width SD 48.1 fl (35.1-43.9); Red Blood Count 3.02 M/mm3 (4.2-5.4); White Blood Count 14.9 K/mm3 (4.4-11.0)
--- NOTE | 2024-08-25 07:11 | PN.OBGYN_ITS ---
Subjective Subjective Doing well. Ambulating and voiding without difficulty. Mild lochia. Breast feeding. Objective Data Objective Data Vital Signs: Vital Signs Temp Pulse Resp BP Pulse Ox O2 Del Method 97.7 F L 77 14 109/62 97 Room Air 08/25/24 03:30 08/25/24 03:30 08/25/24 03:30 08/25/24 03:30 08/25/24 03:30 08/25/24 03:30 Oxygen Delivery Method Room Air Weight: 76.827 kg Body Mass Index (BMI) 32.0 Intake & Output: Intake and Output for Last 24 Hours 08/23/24 08/24/24 08/25/24 23:59 23:59 23:59 Intake Total 3093.07 / 3093.07 1941.61 / 1941.61 Output Total 900 / 900 2650 / 2650 Balance 2193.07 / 2193.07 -708.39 / -708.39 Lab / Micro Data 08/25/24 06:30 Labs: Laboratory Results - last 24 hr 08/25/24 05:40: WBC Cancelled, Corrected WBC Cancelled, RBC Cancelled, Hgb Cancelled, Hct Cancelled, MCV Cancelled, MCH Cancelled, MCHC Cancelled, RDW Std Deviation Cancelled, RDW Coeff of Karrie Cancelled, Plt Count Cancelled, MPV Cancelled, Diff Path Review Cancelled 08/25/24 06:30: WBC 14.9 H, RBC 3.02 L, Hgb 9.6 L, Hct 28.9 L, MCV 95.7, MCH 31.8, MCHC 33.2, RDW Std Deviation 48.1 H, RDW Coeff of Karrie 13.8, Plt Count 179, MPV 10.3, Immature Gran % (Auto) 0.600, Neut % (Auto) 74.1 H, Lymph % (Auto) 15.8 L, [place] % (Auto) 6.7, Eos % (Auto) 2.5, Baso % (Auto) 0.3, Absolute Neuts (auto) 11.1 H, Absolute Lymphs (auto) 2.36, Nucleated RBC % 0 ROS Constitutional Constitutional: Denies headache(s) Cardiovascular Cardiovascular: Denies chest pain or dyspnea Gastrointestinal Gastrointestinal: Denies nausea or vomiting Genitourinary Genitourinary: Denies dysuria Physical Exam Const alert, oriented x3 and no apparent distress General Appearance: cooperative and comfortable Eyes PERRL and EOMs intact bilaterally Resp normal respiratory effort GI soft to palpation and non-tender GI Narrative: soft, moderate distention, fundus firm, appropriately tender. Abdominal bandage clean dry and intact Uterus Palpation: uterus fundus firm ( below umbilicus) Extremity normal to inspection and full ROM Neuro oriented x3 and CN's II-XII intact bilaterally Psych mental status grossly normal Assessment & Plan (1) S/P : (2) Rh negative state in antepartum period: PLAN: Plan discharge home
--- NOTE | 2024-08-25 07:12 | PCM.DC.SUM ---
Providers Date of Admission: 08/22/24 Date of Discharge: 08/25/24 Primary Care Physician: No Primary Care Phys Reason For Visit: LABOR Diagnosis Discharge Diagnosis (1) S/P : Status: Acute Code(s): Z98.891 - History of uterine scar from previous surgery (2) Rh negative state in antepartum period: Status: Acute Code(s): O26.899 - Other specified related conditions, unspecified trimester; Z67.91 - Unspecified blood type, Rh negative Plan discharge home Medications at Discharge Home Medications acetaminophen 325 mg tablet (Tylenol) 325 mg PO ONCE PRN fever or pain 12/08/21 metoprolol succinate 25 mg tablet,extended release 24 hr 25 mg PO DAILY PVC 07/14/24 vit no.95-ferrous fumarate 28 mg-folic acid 800 mcg tablet () 1 tab PO DAILY 07/14/24 pantoprazole 20 mg tablet,delayed release (Protonix) 20 mg PO DAILY heartburn 08/07/24 sertraline 25 mg tablet (Zoloft) 25 mg PO DAILY depression and anxiety 08/07/24 Hospital Course Operations section Procedures None Summary of Care Provided Minutes Spent on Discharge: 20 Hospital Course: Induction of labor. Failed vacuum. PCS without complication. breast feeding Physical Exam Const alert General Appearance: cooperative GI GI Narrative: soft, moderate distention, fundus firm, appropriately tender. Abdominal bandage clean dry and intact Weight / BMI Weight Weight: 76.827 kg Body Mass Index (BMI) 32.0 ABG / Lab / Microbiology Data 08/25/24 06:30 Laboratory: Laboratory Results - last 24 hr 08/25/24 05:40: WBC Cancelled, Corrected WBC Cancelled, RBC Cancelled, Hgb Cancelled, Hct Cancelled, MCV Cancelled, MCH Cancelled, MCHC Cancelled, RDW Std Deviation Cancelled, RDW Coeff of Karrie Cancelled, Plt Count Cancelled, MPV Cancelled, Diff Path Review Cancelled 08/25/24 06:30: WBC 14.9 H, RBC 3.02 L, Hgb 9.6 L, Hct 28.9 L, MCV 95.7, MCH 31.8, MCHC 33.2, RDW Std Deviation 48.1 H, RDW Coeff of Karrie 13.8, Plt Count 179, MPV 10.3, Immature Gran % (Auto) 0.600, Neut % (Auto) 74.1 H, Lymph % (Auto) 15.8 L, [place] % (Auto) 6.7, Eos % (Auto) 2.5, Baso % (Auto) 0.3, Absolute Neuts (auto) 11.1 H, Absolute Lymphs (auto) 2.36, Nucleated RBC % 0 D/C Instructions Discharge Diet: No restrictions May resume sexual activity in: 4-6 weeks Lifting Restrictions: 20 pounds Additional Activity Instructions: Nothing in the vagina for 4-6 weeks. You may return to work/school in 6 weeks. Call your doctor if your incision/area has: Continuous Slow Oozing, Sudden Increased Bleeding, Increased Pain/ Swelling, Increased Redness and Foul Smelling Discharge Call your doctor if you observe: Fever of 101 or Higher and Using more than 1 pad per hour (for 2 hours) Suture Line Care: Avoid Pulling/Pushing and Avoid Pinching/Bending Cleanse incision/area with: Keep Dressing Clean & Dry DC O2, CPAP, BIPAP Needs Home O2 Discharge instructions: No Please Follow Up With: Genesis Islas MD When: Call to make an appointment for an incision check in 1-2 [phone]. You will need a post check in 6 weeks. Meaningful Use Info Meaningful Use Meaningful Use Diagnoses (Choose all that apply): None applicable Ischemic Stroke Statin Dosing Therapy Reference: STATIN DOSE THERAPY REFERENCE: * Patients > 75 years receive moderate or high dose statin therapy. * Patients 75 years or YOUNGER should receive HIGH intensity statin dose unless contraindicated. You will be required to document reason for non-treatment if statin daily dose does not meet guidelines. HIGH DOSE STATIN THERAPY DAILY Atorvastatin > than or = to 40 mg Rosuvastatin > than or = to 20 mg Amlodipine + Atorvastatin > than or = to 2.5/40 mg Ezetimibe + Simvastatin 10/80 mg Simvastatin 80mg Discharge Plan Admission Admit Date/Time: 08/22/24 19:18 Primary Reason for Your Visit: induction Attending Provider: Georgia Lino Primary Care Provider: Care Physician,No Primary Discharge Orders/Prescriptions Prescriptions: Continued acetaminophen [Tylenol] 325 mg tablet 325 mg PO ONCE PRN (Reason: fever or pain) pantoprazole [Protonix] 20 mg tablet,delayed release (DR/EC) 20 mg PO DAILY sertraline [Zoloft] 25 mg tablet 25 mg PO DAILY PNV cmb#95-ferrous fumarate-FA [] 28 mg iron- 800 mcg tablet 1 tab PO DAILY metoprolol succinate 25 mg tablet extended release 24 hr 25 mg PO DAILY Discontinued ondansetron 4 mg tablet,disintegrating 4 mg PO Q8H PRN PRN (Reason: Nausea) Qty: 10 0RF aspirin [Children's Aspirin] 81 mg tablet,chewable 1 tab PO DAILY Referrals / Follow Up: Care Physician,No Primary [Primary Care Provider] - Disposition Disposition (needs filled in before D/C Order can be placed): Home, Self Care
[2024-08-25 08:22] VITALS: BP 112/70; PULSE 85; RESP 16; TEMP 36.3; O2SAT 97
[2024-08-25] MEDS: Sertraline 50 MG Tablet 25 MG PO (11:03)
[2024-08-25] MEDS: Senna/Docusate Sodium 1 Tablet PO (11:04)
[2024-08-25 12:00] VITALS: BP 128/87; PULSE 100; RESP 18; TEMP 37; O2SAT 98
[2024-08-25 14:10] VITALS: PULSE 100
[2024-08-25] MEDS: Metoprolol(XL)Succ 25 MG Tablet PO (14:10)
--- NOTE | 2024-09-02 15:22 | CASEMGMT ---
Social Work Assessment Labor and Delivery Unit Patient Address: [address] [facility] [address] Phone number: [phone] Date of Referral: 08/24/24 Time of Referral:? 518 Referred By: Dr. Lino Date of Intervention: ??08/25/24 Time of Intervention:? 1145 Reason for Referral:? mental health Sw completed chart review and acknowledges social work consult due to maternal mental health history. Sw presented to bedside and introduced self to mother of baby (MOB- Gregg) and father of baby (FOB- CAL). Sw explained reason for sw involvement and completed psychosocial assessment. History obtained from: medical records, MOB and FOB Household composition: Currently residing in the family home is MOB and FOB. baby to be included in residence when ready for discharge. Parents deny any housing concerns, stating their house is safe and secure. Patient's parent/guardian status:? ?Parents have been together for 3 years after meeting at a [employer] game. baby is first baby for parents together. No concerns reported of domestic violence or intimate partner violence. Medical History: MG is 24 year old female who is 1, para 0- now 1 following labor and delivery of . MG received routine care during with [facility]. MG presented to hospital and delivered baby via emergency on 08/24/24 at 39 weeks gestation. Baby boy, named Bossman Foster, was born weighing 7lb 4oz with apgars of 9 and 9 at one and five minutes of life, respectfully. MG is doing a combination of feeds with baby and states that baby will be followed by Dr. Sorto for pediatrics. Educational Status:? Both parents graduated from high school, no college education. Parents deny problems with reading, learning or comprehension. Financial Status: Both parents are gainfully employed outside of the home. 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 FOB works as a customer services medical field representative. Infant Supplies:?? All necessary baby supplies obtained, including: car seat, safe sleep space, clothes, diapers and wipes. Childcare/Caregiver(s): MOB will be the primary caregiver to baby along with FOB when he is not working. When both parents have returned to work baby will be watched by paternal grandmother. ? Transportation:?? Both parents have their drivers license and reliable means of transportation. No barriers. Programs/Agencies Involved: MG reports that she is connected to WIC. ??? Children Services/Legal Issues:??? No history of children services involvement, no issues or concerns warranting referral to be made at this time. Behavioral Health Issues: ??Mental Health History: CRAIG reports that he has history of anxiety and depression and is prescribed lexapro. FOB states that he is also connected to a counselor at [facility]. FOB states that he feels as though his mental health is managed. MOB reports that she has also been diagnosed with anxiety and depression and is prescribed zoloft by her OBGYN. MOB states that she has felt slightly overwhelmed and anxious during her and was receptive to starting medication to help manage her symptoms. MOB states that she is hopeful that by starting medication prior to delivery will prevent any symptoms. ?? Substance Use History: Parents deny any substance use prior to and during . ?? Family History:??Parents deny family history of substance use or significant mental health diagnoses. ??? Drug Screens: No drug screens observed while completing chart review. ?? Family/Social Stressors:? Parents deny any family issues, stressors or concerns. Support Systems: MOB states that FOB and grandparents are her biggest supports. Depression/Shaken Baby/Safe Sleeping:? Jonny educated parents on signs and symptoms of baby blues and depression and anxiety to be mindful of. Jonny pointed out to parents that both of them are at more risk for experiencing symptoms of due to their mental health history. MOB reports that she is aware of what red flags to look out for. FOB states that if MOB were to struggle he would be able to recognize that. FOB states that he would do his best to help MOB, but may not always know what to do. MOB and FOB talked about other ways that CRAIG could be of assistance if she were to struggle with her mental health. Jonny educated parents on shaken baby prevention and ABCs of safe sleep. Parents express understanding. ASSESSMENT:? MOB and baby admitted following labor and delivery. MOB and FOB with mental health history. Both parents are prescribed medication to help them manage their mental health symptoms. FOB also connected to counseling resources. MOB states that if she feels as though she is struggling with she will also ask to linkage to counseling supports. Parents were receptive to meeting with sw. Parents were polite and talkative, engaging in conversation during completion of assessment. MOB observed holding baby lovingly and attentively. Parents have natural supports in place and have obtained all necessary baby supplies. PLAN:? No other services requested or indicated. MOB and baby to be discharged when medically ready. Parents were provided literature regarding: signs and symptoms of baby blues and mood and anxiety disorders, Help Me Grow, shaken baby prevention, ABCs of safe sleep and a list of psychiatric hospital resources that are available for them should any needs present themselves. Deepika Gonzales, TRAFFIC ENGINEER, ASSOCIATE CURATOR
== END 2024-08-25 15:55 | disposition home or self-care (01) | DRG 788 ==
PROVIDERS: Admitting Provider Obstetrics & Gynecology; Referring Provider Obstetrics & Gynecology; Visit Provider Obstetrics & Gynecology
DX: O99.42 Diseases of the circulatory system complicating childbirth (principal); F32.A Depression, unspecified; F41.9 Anxiety disorder, unspecified; O69.81X0 Labor and delivery complicated by cord around neck, without compression, not applicable or unspecified; I49.3 Ventricular premature depolarization; O99.344 Other mental disorders complicating childbirth; Z37.0 Single live birth; O26.893 Other specified pregnancy related conditions, third trimester; Z67.41 Type O blood, Rh negative; O66.5 Attempted application of vacuum extractor and forceps; O32.4XX0 Maternal care for high head at term, not applicable or unspecified; Z3A.39 39 weeks gestation of pregnancy; Z79.899 Other long term (current) drug therapy
CPT/HCPCS: 59025; 59050; 76815; 85025; 85461; 86780; 86850; 86870; 86900; 86901; 90384; 99221; A4216; G0378; J2405; J2790; J2791

== ENCOUNTER 2024-11-15 11:35 | Emergency (ER) | payer OTHER, SELFPAY ==
[2024-11-15 11:35] VITALS: BP 135/104; PULSE 113; RESP 14; TEMP 36.7; O2SAT 98; BMI 26.9
--- NOTE | 2024-11-15 12:15 | RAD_ITS ---
PROCEDURE: HIP, UNI W/ PELVIS 2-3 VIEWS 11/15/2024 REASON FOR EXAM: PAIN TECHNIQUE: Procedure Code: RAD Modality: DX Procedure: HIP, UNI W/ PELVIS 2-3 VIEWS Laterality: Left COMPARISON: None FINDINGS: Bones: No demonstrated fracture or suspicious osseous lesion. Joints: Preservation of the hip and SI joints. No subchondral changes Soft tissues: Retained stool in the colon, particularly in a distended rectum Other: RAD/HIP, UNI W/ Pelvis 2-3 Views IMPRESSION: Unremarkable pelvis and hips Retained stool with stool in a distended rectum. Stool may be impacted Reading Location: [id number]
--- NOTE | 2024-11-15 12:16 | ED.VIS.LOWEX ---
HPI History of Present Illness Chief Complaint: Lower Extremity Injury Informant: patient Narrative Narrative: Patient has been having anterior left hip pain for the past 2 weeks. Sitting really makes it worse. Movement also hurts a little but not as much as when she is sitting and then tries to get up. She denies any numbness or tingling down her left lower extremity. She has had no recent injury. She had a baby in August by , she has not been doing any exercising, running, or new repetitive motions with her left lower extremity since. She is not breast-feeding. She has not tried any medications or treatments yet. She does not have pain into her back or abdomen, and denies any GI symptoms or urinary symptoms. [facility] Medical History delivery delivered Depression Anxiety Physical exam, pre-employment Palpitations Chest pain PVCs (premature ventricular contractions) Cephalgia Contact with and (suspected) exposure to other viral communicable diseases Strain of right knee Home Medications ?Medication ?Instructions ?Recorded ?Last Taken ?Type acetaminophen 325 mg tablet 325 mg PO ONCE PRN fever or pain 12/08/21 Unknown History (Tylenol) metoprolol succinate 25 mg 25 mg PO DAILY PVC 07/14/24 08/22/24 History tablet,extended release 24 hr vit no.95-ferrous 1 tab PO DAILY 07/14/24 08/22/24 History fumarate 28 mg-folic acid 800 mcg tablet () pantoprazole 20 mg tablet,delayed 20 mg PO DAILY heartburn 08/07/24 08/21/24 History release (Protonix) sertraline 25 mg tablet (Zoloft) 25 mg PO DAILY depression and 08/07/24 08/06/24 History anxiety naproxen 500 mg tablet 500 mg PO BID PRN pain #14 tabs 11/15/24 Unknown Rx Allergy/AdvReac Type Severity Reaction Status Date / Time lactose Allergy Mild Unknown Verified 11/15/24 11:35 adhesive (adhesives) AdvReac Severe Rash Verified 11/15/24 11:35 Family History Grandmother Heart disease Parkinsons Cancer Grandfather Cancer Surgical History (Updated 09/02/24 @ 00:01 by Background Daemon) Hx of arthroscopy of right knee Social History household members: spouse housing: house Smoking Status: Never smoker alcohol intake: never substance use type: does not use caffeine: Yes ROS ROS ED Constitutional Constitutional ED: Denies chills or fever(s) Musculoskeletal Musculoskeletal: Reports extremity pain; Denies neck pain Integumentary Denies Abrasions, rash or wounds Neurologic Neurologic: Denies paresthesias or weakness EXAM Physical Exam Const Vital Signs: 11/15/24 11:35 Temperature 98.1 F Temperature Source Temporal Pulse Rate 113 H Respiratory Rate 14 Blood Pressure 135/104 H Blood Pressure Mean 114 Pulse Ox 98 Oxygen Delivery Method Room Air Positive well nourished and well developed General Appearance ED: well developed and NAD Neck full ROM and supple GI non-tender and non-distended GI Narrative: Patient has focal tenderness of the AIIS on the bony pelvis. She has a fairly prominent AIIS. The ASIS is nontender. There is no swelling over the tender area, and distal to this toward the inguinal ligament/thigh there is no tenderness or inguinal lymphadenopathy. Auscultation: normoactive bowel sounds Palpation: soft Back/Spine normal ROM and normal to inspection Extremity Extremity Narrative: Range of motion without limitation or pain with regards to the left lower extremity. She can flex her thigh against resistance without limitation or significant discomfort and there is no tenderness at the tendon of the thigh flexors, but tender at the AIIS which is prominent. Neuro oriented x3, no focal motor deficits and no sensory deficits noted Sensorium / Orientation: alert Psych mental status grossly normal and thought process normal Skin no wounds Rashes: no rashes MDM MDM MDM Narrative Medical decision making narrative: The patient's pain is reproducible with palpation over the AIIS which is more prominent than in most people in this patient. I obtained x-rays to rule out an avulsion fracture. Three-view x-rays of the left hip and pelvis on my interpretation is negative for anything acute. At this time I recommend topical treatments and oral NSAIDs since she is not breast-feeding and follow-up with a PCP. She does not have one, to she is referred to the next doctor on the unassigned list, Dr. Ortiz. Discharge Plan Triage Chief Complaint: Lower Extremity Injury ED Provider: Reginald,Dandy Dx/Rx/DC Orders Clinical Impression: Acute pain of left hip Instructions: ED Hip Strain, ED Tendonitis Prescriptions: New naproxen 500 mg tablet 500 mg PO BID PRN (Reason: pain) Qty: 14 0RF No Action acetaminophen [Tylenol] 325 mg tablet 325 mg PO ONCE PRN (Reason: fever or pain) pantoprazole [Protonix] 20 mg tablet,delayed release (DR/EC) 20 mg PO DAILY sertraline [Zoloft] 25 mg tablet 25 mg PO DAILY PNV no.95-ferrous fumarate-FA [] 28 mg iron- 800 mcg tablet 1 tab PO DAILY metoprolol succinate 25 mg tablet extended release 24 hr 25 mg PO DAILY Primary Care Provider: Care Physician,No Primary Referrals: Christian Ortiz MD [Med Staff - Active Staff] - 1-2 Weeks Activity Restrictions/Additional Instructions: suspect tendonitis or bursitis involving the anterior superior iliac spine; follow up with primary care, may be appropriate for referral to physical therapy if NSAIDS do not resolve. Print Language: Guinean Disposition Disposition: Home, Self Care
[2024-11-15 12:44] VITALS: BP 107/61; PULSE 69; RESP 16; TEMP 36.4; O2SAT 100
--- OUTSIDE RECORDS SUMMARY | 2024-11-15 12:45 | XMS RPT_ITS | CCD ---
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 above: Order Comment: Comme nts: Age > 13 WeeksNorman,[id number] Performed By: #### B Rodrigo GALVEZ(D) IG ####[facility] [address] [place], [address] [id number] 08-22-2024 ANTIBODY ID D Normal [facility] Comment on above: Order Comment: Labor Performed By: #### L 499.0042 #### [facility] [address] [place], [address] CBC W/Diff, Automatedon 06-2 0-2024 Absolute Lymph 2.28 X10 3/uL Normal 0.83-4.51 [facility] Comment on above: Performed By: #### L 499.0042 #### [facility] [address] [place], [address] Absolute Neut 10.4 X10 3/uL High 2.0-7.7 [facility] Comment on above: Performed By: #### L 499.0042 #### [facility] [address] [place], [address] Basophils/100 WBC (Bld) 0.4 % Normal 0-1 [facility] Comment on above: Performed By: #### L 499.0042 #### [facility] [address] [place], [address] Eosinophils/100 WBC (Bld) 1.9 % Normal 0-5 [facility] Comment on above: Performed By: #### L 499.0042 #### [facility] [address] [place], [address] Erythrocyte distribution width (RBC) [Ratio] 13.2 % Normal 11.6-14.6 [facility] Comment on above: Performed By: #### L 499.0042 #### [facility] [address] [place], [address] Hematocrit (Bld) [Volume fraction] 36.0 % Low 37-47 [facility] Comment on above: Performed By: #### L 499.0042 #### [facility] [address] [place], [address] Hemoglobin (Bld) [Mass/Vol] 12.5 g/dL Normal 12.0-15.0 [facility] Comment on above: Performed By: #### L 499.0042 #### [facility] [address] [place], [address] IG% 1.000 High 0.0-0.9 [facility] Comment on above: Result Comment: IG% - Immature Granulocytes (promyelocytes, myelocytes and metamyelocytes) > 1% indicates that a LEFT SHIFT is Present. Performed By: #### L 499.0042 #### [facility] [address] [place], [address] Lymphocytes/100 WBC (Bld) 16.3 % Low 19-41 [facility] Comment on above: Performed By: #### L 499.0042 #### [facility] [address] [place], [address] MCH (RBC) [Entitic mass] 31.9 pg Normal 27.0-32.0 [facility] Comment on above: Performed By: #### L 499.0042 #### [facility] [address] [place], [address] MCHC (RBC) [Mass/Vol] 34.7 g/dL Normal 32-36 [facility] Comment on above: Performed By: #### L 499.0042 #### [facility] [address] [place], [address] MCV (RBC) [Entitic vol] 91.8 fL Normal 81-99 [facility] Comment on above: Performed By: #### L 499.0042 #### [facility] [address] [place], [address] Monocytes/100 WBC (Bld) 6.2 % Normal 0-10 [facility] Comment on above: Performed By: #### L 499.0042 #### [facility] [address] [place], [address] Neutrophils/100 WBC (Bld) 74.2 % High 47-70 [facility] Comment on above: Performed By: #### L 499.0042 #### [facility] [address] [place], [address] Nucleated RBC (Bld) [#/Vol] 0 10*3/uL Normal 0-5 [facility] Comment on above: Performed By: #### L 499.0042 #### [facility] [address] [place], [address] Platelet mean volume (Bld) [Entitic vol] 10.5 fL Normal 6.2-12.0 [facility] Comment on above: Performed By: #### L 499.0042 #### [facility] [address] [place], [address] Platelets (Bld) [#/Vol] 209 10*3/uL Normal 150-450 [facility] Comment on above: Performed By: #### L 499.0042 #### [facility] [address] [place], [address] RBC (Bld) [#/Vol] 3.92 10*6/uL Low 4.2-5.4 [facility] Comment on above: Performed By: #### L 499.0042 #### [facility] [address] [place], [address] RDW SD 44.1 fl High 35.1-43.9 [facility] Comment on above: Performed By: #### L 499.0042 #### [facility] [address] [place], [address] WBC (Bld) [#/Vol] 14.0 10*3/uL High 4.4-11.0 [facility] Comment on above: Performed By: #### L 499.0042 #### [facility] [address] [place], [address] H AND P Exam - OB/GYNon 08-04 H&P Exam - STAY CUTTER [facility] Medical Records Department [address] [place] [address] H P Exam - STAY CUTTER 08/22/242057 MR#: [id number] Acct: [id number] Name: STEWART ZUNIGA Rep #: [id number] : 2000 24 From: Georgia Lino MD PCP: Care Physician,No Primary Status:ADM IN Location: [place] [address] HPI - General General Date of Admission: 08/22/24 Date of Service: 08/22/24 Chief Complaint: induction of labor HPI Narrative STEWART ZUNIGA, is a 24 F who presents elective induction labor. GBS negative. Maternal Data Information Final JEM: 08/29/24 Gestational age: 39 PFSH PFSH Medical History Depression Anxiety Physical exam, pre-employment Palpitations Chest pain PVCs [...] mg chewable tablet 1 tab PO DAILY prophylatic 2 5 08/21/24 History (Children's Aspirin) metoprolol succinate 25 mg 25 mg PO DAILY PVC 07/14/24 History tablet,extended release 24 hr vit no.95-ferrous 1 tab PO DAILY 07/14/24 08/22/24 History fumarate 28 mg-folic acid 800 mcg tablet () pantoprazole 20 mg tablet,delayed 20 mg PO DAILY heartburn 08/07/24 08/21/24 History release (Protonix) sertraline 25 mg tablet (Zoloft) 25 mg PO DAILY depression and 07/2708/06/24 History anxiety Allergy/AdvReac Type Severity Reaction Status Date / Time lactose Allergy Mild Unknown Verified 08/22/24 19:47 adhesive (adhesives) AdvReac Severe Rash Verified 08/22/24 19:47 Family History Grandmother Heart disease Parkinsons Cancer Grandfather Cancer Surgical History Hx of arthroscopy of right knee Social History household members: spouse housing: house Smoking Status: Never smoker alcohol intake: never substance use type: does not use caffeine: Yes History 1 Elective abortions Hx Para 0 Spontaneous abortions Hx # Term Pregnancies Ectopic pregnancies Hx # Pregnancies Multiple births # of living children NST FHR Rate Baby A Baseline: 150 Variability:: Moderate Accelerations:: 15 x 15 Decelerations:: None NST Reactive:: Yes FHR Category:: Category I Uterine Activity:: irritable ROS Constitutional Constitutional: Denies fatigue, fever(s) or malaise Eyes Eyes: Denies change in vision ENT HEENT: Denies dizziness or headache(s) Cardiovascular Cardiovascular: Denies chest pain, dyspnea or lightheadedness Respiratory/Chest Respiratory/Chest: Denies cough or dyspnea Gastrointestinal Gastrointestinal: Denies change in bowel habits Genitourinary Genitourinary: Denies burning urination or genital lesions Integumentary Integumentary: Denies rash Neurologic Neurologic: Denies confusion, dizziness, headache(s), numbness or weakness Vital Signs Vital Signs Vital Signs: 08/22/24 20:11 08/22/24 20:11 08/22/24 20:12 Pulse Rate 121 H 120 H Blood Pressure 122/86 H BP Systolic 122 BP Diastolic 86 Pulse Ox 08/22/24 20:12 Pulse Rate Blood Pressure BP Systolic BP Diastolic Pulse Ox 98 Weight Weight: 76.827 kg Body Mass Index (BMI) 32.0 Physical Exam Const alert and no apparent distress General Appearance: cooperative HEENT normocephalic Resp normal respiratory effort GI soft to palpation GI Narrative: gravid, nontender, appropriate for gestational age Extremity no calf tenderness General Extremity: edema Skin no wounds Rashes: No rashes noted Psych activity/motor behavior normal Labs Labs Labs: Blood Type O NEGATIVE Antibody Screen Pending Hct 36.0 % (37-47) L Hgb 12.5 g/dL (12.0-15.0) Syphilis Total Ab Nonreactive (Nonreactive) Assessment Plan (1) 39 weeks gestation of : (2) Elective induction of labor planned: PLAN: Plan church/pit GBS negative Epidural prn 08/22/242100 Cosigner Signature (if applicable): CC: Dr. Georgia Lino MD; No Primary Care Physician Signed Normal [facility] Syphilis Antibodieson 2024 Syphilis Abs Non-Reactive Normal Nonreactive [facility] Comment on above: Performed By: #### L 499.0042 #### [facility] [address] [place], [place], [address] Type AND Screenon 08-22-2024 Ab SCREEN GEL Positive Normal [facility] Comment on above: Order Comment: Labor Performed By: #### L 499.0042 #### [facility] [address] [place], [address] URINE OB DIP B/Oon Glucose Ql (U) Negative Neg mg/dL [facility] Interpretation and review of laboratory results Normal [facility] Protein.monoclonal (U) [Mass/Vol] Negative Neg mg/dL [facility] CNPNon 08-12-2024 CNPN Telephone (OBGYWM) STEWART ZUNIGA ([id number]) 4 F Date Time Provider Department 08/12/24 AMBREEN ROMERO OBGYWChrsi During your visit today, we recorded the [...] or would you rather her go to [facility]? Thank you. PEACE Beatty Karmon, MD 08/12/2024 12:10 PM Signed The pelvic pressure with standing is a common occurrence. I would recommend rest and hydration. If having regular contractions, red bleeding beyond 24 hours or LOF should go to [facility]. MD Siena Pires Jennifer, PEACE 08/12/2024 12:56 PM Signed Patient notified. Voiced [...] 1 tablet by mouth once daily. - [id number]-ormy-dvtnz acid ( 19) 29 mg iron- 1 [...] Status:Closed by GEORGIA WREN on 08/12/24 Normal [facility] ROUTINE, GROUP B ST REPTOCOCCUS BY PCRon 08-11-2024 ROUTINE, GROUP B STREPTOCOCCUS BY PCR Not detected Normal [facility] Comment on above: Performed By: #### G BPCR ####[facility] LABCLIA [id number] [address] [place] K[place] 08-09-2024 KLEIHAUER-BETKE Negative Normal [facility] Comment on above: Result Comment: Storm Geiger Study Reference: Negative No cells seen. TESTING PERFORMED AT [facility]. ORIGINAL REPORT ON FILE IN LAB CONTAINS ADDITIONAL TEST SITE INFORMATION. AMENDED REPORT 08/09/2438 DELVIN GEIGER previously reported as: Ramakrishna Geiger Study Reference: Negative No cells seen. TESTING PERFORMED AT [facility]. ORIGINAL REPORT ON FILE IN LAB CONTAINS ADDITIONAL TEST SITE INFORMATION. Performed By: #### L 400.0001 #### [facility] [address] [facility] [place], [place], [address] 12 Lead EKGon 08-07-2024 12 Lead [facility] Cardiovascular Services [address] [place] [address] 12 Lead EKG 08/07/242204 MR#: [id number] Acct: [id number] Name: STEWART ZUNIGA Rep #: [id number] : 2000 24 From: Cailin Joy MD Attending Dr: Dr. Georgia Lino MD Status: D EP CLI Ordering Dr: Georgia Lino MD Date: 08/07/24 Location: [facility] Sex: F C Admitted: Test Reason : [...] No significant change was found Confirmed by RUFINO SANTIAGO, JOSE M ([id number]), editor farm journal SHANTANU HARRIS ([id number]) on 08/11/2024 6:56:33 AM Referred By: Georgia Lino Confirmed By: JOSE M JOY MD 08/11/24 0656 Date Cailin Joy MD CC: Dr. Georgia Lino MD; No Primary Care Physician Signed [facility] [id number] 08-07-2024 ABO and Rh group Nom (Bld) Blood group O Rh(D) negative Normal [facility] Comment on above: Performed By: #### L 499.0042 #### [facility] [address] [place], [place], [address] BRho(D) IGon 08-07-2024 Rho(D) IG Normal [facility] Comment on above: Result Comment: [id number] Rho(D) IG PRSMD TRFSD 08/07/241930 Performed By: #### L 499.0042 #### [facility] [address] [place], [place], [address] CNPNon 08-07-2024 [facility] Telephone (OBGYWM) STEWART ZUNIGA ([id number]) 4 F Date Time Provider Department 08/07/24 GEORGIA LINO During your visit today, we recorded the following information about you: Mathew Gaviria RN 08/07/2024 3:34 PM Signed Patient 36w6d calling with concerns after falling on her abdomen after tripping over her dog. Patient states she fell around 3 pm and is now having pain and cramping in her abdomen and also concerns of decreased movement. Patient denies any bleeding or leaking of fluid. Patient instructed to go to [facility] for evaluation. Patient voiced understanding. [facility] notified. Mathew Gaviria RN Allergies As of Date: 08/07/2024 [...] 1 tablet by mouth once daily. - by953-khzj-qyrio acid ( 19) 29 mg iron- 1 [...] of (HCC) [Z3A.33] 07/17/2024 Encounter Status:Closed by MATHEW GAVIRIA on 08/07/24 Normal [facility] OB Triage Physician Noteon 0 08-07-2024 OB Triage Physician Note [facility] Medical Records Department [address] [place] [address] OB Triage Physician Note 08/07/241914 MR#: [id number] Acct: [id number] Name: STEWART ZUNIGA Rep #: [id number] : 2000 24 From: Georgia Lino MD PCP: Care Physician,No Primary Status:DEP CLI Y Location: [facility] HPI - General General Date of Admission: 08/07/24 Date of Service: 08/07/24 Chief Complaint: fall HPI Narrative STEWART ZUNIGA, is a 24 F who presents [...] Final JEM: 08/29/24 Gestational age: 36+6 PFSH PFSH Medical History Physical exam, pre-employment [...] Social History (Updated 06/15/24 @ 21:00 by Naren Gold) household members: spouse housing: house Smoking [...] period: PLAN: Plan Prolonged monitoring. Rhogam given 08/07/24 2254 Date Georgia Lino MD Cosigner Signature (if applicable): Date _ CC: Dr. Georgia Lino MD; No Primary Care Physician Signed Normal [facility] Type AND Screenon 08-07-2024 A1 CELL Not performed Normal [facility] Comment on above: Order Comment: Has p t arrived? [id number] fell on abdomen Result Comment: Canc elled via OM: Order Changed Performed By: #### B TS ####[facility] [address] [place], [place], [address] Ab SCREEN GEL Not performed Normal [facility] Comment on above: Order Comment: Has p t arrived? [id number] fell on abdomen Result Comment: Canc elled via OM: Order Changed Performed By: #### B TS ####[facility] [address] [place], [place], [address] ABO and Rh group Nom (Bld) Test Not Performed Normal [facility] Comment on above: Order Comment: Has p t arrived? [id number] fell on abdomen Result Comment: Canc elled via OM: Order Changed Performed By: #### B TS ####[facility] [address] [place], [place], [address] ANTI A Not performed Normal [facility] Comment on above: Order Comment: Has p t arrived? [id number] fell on abdomen Result Comment: Canc elled via OM: Order Changed Performed By: #### B TS ####[facility] [address] [place], [address] ANTI B Not performed Normal [facility] Comment on above: Order Comment: Has p t arrived? [id number] fell on abdomen Result Comment: Canc elled via OM: Order Changed Performed By: #### B TS ####[facility] [address] [place], [place], [address] ANTI D Not performed Normal [facility] Comment on above: Order Comment: Has p t arrived? [id number] fell on abdomen Result Comment: Canc elled via OM: Order Changed Performed By: #### B TS ####[facility] [address] [place], [place], [address] B CELLS Not performed Normal [facility] Comment on above: Order Comment: Has p t arrived? [id number] fell on abdomen Result Comment: Canc elled via OM: Order Changed Performed By: #### B TS ####[facility] [address] [place], [place], [address] CNPNon 07-17-2024 CNPN Telephone (OBGYWM) STEWART ZUNIGA ([id number]) 4 F Date Time Provider Department 07/17/24 GENESIS MARTINEZ OBGYWM During your visit today, we recorded the following information about you: Georgia Wren, RN 07/17/2024 8:55 AM Signed 33w6d Patient called because she's been taking Macrobid for 4 days and still having pain. States that she began niru at 6:00 PM every 2-3 minutes for 30-50 seconds. Rating pain 8-9. Feels that she has been leaking fluid since Sunday. States she told [facility] nurse, but swab was not done. Spoke with DM regarding plan of care. Offered patient a visit here, go to [facility] (risk that baby could be transported if she delivers) or go to [place]. For peace of mind, patient said, she is going to [place]. PEACE Barber Tara, RN 07/17/2024 2:45 PM Signed Pt calls back stating she went to [facility]. Was told she was 1cm dilated; [...] doing and to call the office/return to [facility] if she has LOF/vaginal bleeding, decreased movement, increase in frequency of contractions-increas ed pain despite measures above, or abdominal pain. Pt voiced understanding. Informed her message would be forwarded to RR to inform her of this and see if any further recommendations are needed. PEACE Osborn Rebecca L, MD 07/17/2024 4:25 PM Signed Called and spoke w/ patient. Feels about the same as when she went in today. D/w her at this point not much more to offer her, other than supportive measures. If VB/LOF/Fever, increased ctxs let us know. Otherwise rest when she can,follow up as scheduled or prn. Genesis Martinez MD Allergies As of Date: 07/17/2024 [...] 1 tablet by mouth once daily. - tm901-vwzg-xqbnu acid ( 19) 29 mg iron- 1 [...] Status:Closed by GEORGIA WREN on 07/17/24 Normal [facility] ED Triage Noteon 07-17-2024 ED Triage Note HNO ID: [id number] Author: DAVID MCKAY APRN.PREPARED FOODS SUPERVISOR Service: Emergency Medicine Author Type: Nurse Practitioner Type: ED Triage Notes Filed: 07/17/2024 11:10 Note Text: ED TRIAGE PROVIDER NOTE Patient Name: Stewart Zuniga Service Date: 07/17/24 BRIEF HPI: This [...] types were placed in this encounter. 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.PREPARED FOODS SUPERVISOR Normal [facility] OB Triage Physician Noteon 0 07-17-2024 OB Triage Physician Note [facility] Medical Records Department [address] [place] [address] OB Triage Physician Note 07/17/24 0857 MR#: [id number] Acct: [id number] Name: STEWART ZUNIGA Rep #: [id number] : 2000 From: Genesis Martinez MD PCP: Care Physician,No Primary Status:DEP CLI Y Location: [facility] HPI - General General Date of Admission: 07/15/24 Date of Service: 07/15/24 Chief Complaint: abd pain HPI Narrative STEWART ZUNIGA, is a 24 F who presents c/o abdominal pain, contractions Maternal Data Information Final JEM: 08/29/24 Gestational age: 33 4/7 PFSH PFS Medical History Physical exam, pre-employment [...] Social History (Updated 06/15/24 @ 21:00 by Naren Gold) household members: spouse housing: house Smoking [...] (4) Threatened labor, antepartum: 07/17/24 0858 Date Genesis Martinez MD Cosigner Signature (if applicable): Date _ CC: Dr. Genesis Martinez MD; No Primary Care Physician Signed [facility] Urine Cultureon 07-16-2024 [facility] Mixed Gram Positive Organisms [place] Count 11,000-25,000 MIXC Mixed contaminants. Submit a new specimen if indicated. [facility] Comment on above: Performed By: #### M 100.2200 ####[facility] [address] [place], [address] [facility] 07-15-2024 CNPN Telephone (CARDMN) EFRAINSTEWART ([id number]) 4 F Date Time Provider Department 07/15/24 JAY BYRD CARDCT During your visit today, we recorded the following information about you: Maribel Joaquin 07/15/2024 11:23 AM Signed July 15, 2024 Patient Contact Number: [phone] (home) [phone] (cell) Patient last seen within the last year: Yes Reason for Call: Dizziness and Other Issue: Pt is 33.5 weeks . States she experience having contractions and went to local ED ([facility]) yesterday and today and was sent home. [...] GI Upset Date Reviewed: 07/14/2024 Reviewed by: Shantanu Gordon MA - Fully Assessed Reason for Visit: Patient Update [1234] Cmt: High HR, dizziness, seeing stars Prescriptions as of 07/15/2024 - pantoprazole DR (PROTONIX) 20 mg tablet Take 1 tablet by mouth once daily. - wg887-qfup-dwouy acid ( 19) 29 mg iron- 1 [...] Status:Closed by NACHO KWAN on 07/15/24 Normal [facility] Amorphous sediment detection in urine sediment by light microscopyOrdered By: Amilcar Méndez on 07-14-2024 Amorphous sediment LM Ql (Urine sed) 2+ [facility] BACTERIAL VAGINOSIS NAATon 0 07-14-2024 Lactobacillus crispatus+gasseri+jense patrick + Gardnerella vaginalis + Atopobium vaginae rRNA RICHARD+probe Ql (Vag fld) Not detected Normal Not detected [facility] Comment on above: Order Comment: Speci men Type: SWABOrdering Facility: [facility] Address: [address] [place] [address] Performed By: #### B VAMP, CVTV ####[facility] LABCLIA [id number] [place] [address] [place] Bilirubin Test strip Ql (U)O rdered By: Amilcar Méndez on 07-14-2024 Bilirubin Ql (U) Negative Negative [facility] IRENE/TRICHOMONAS NAATon 0 07-14-2024 C. glabrata RNA RICHARD+probe Ql (Vag fld) Not detected Normal Not detected [facility] Comment on above: Order Comment: Speci men Type: SWABOrdering Facility: [facility] Address: [address] [place] [address] Performed By: #### B VAMP, CVTV ####[facility] LABCLIA [id number] [place] [address] [place] Irene sp DNA RICHARD+probe Ql (Vag fld) Not detected Normal Not detected [facility] Comment on above: Order Comment: Speci men Type: SWABOrdering Facility: [facility] Address: [address] [place] [address] Result Comment: The Irene species group target includes C. albicans, C. tropicalis, C. parapsilosis, and C. dubliniensis. Performed By: #### Tiera VAMP, CVTV ####[facility] LABCLIA [id number] [place] [address] [place] T. vaginalis DNA RICHARD+probe Ql (Unsp spec) Not detected Normal Not detected [facility] Comment on above: Order Comment: Speci men Type: SWABOrdering Facility: [facility] Address: [address] [place] [address] Performed By: #### B VAMP, CVTV ####[facility] LABCLIA [id number] [place] [address] [place] Ketones Test strip Ql (U)Ord ered By: Amilcar Méndez on 07-14-2024 Ketones Ql (U) Negative Negative [facility] Microscopic analysis of urin e for red blood cells (RBC)Ordered By: Amilcar Méndez on 07-14-2024 Microscopic analysis of urine for red blood cells (RBC) 0 SEEN /hpf 0-5 [facility] Mucus LM Ql (Urine sed)Order ed By: Amilcar Méndez on 07-14-2024 Mucus Ql (Urine sed) 0 SEEN /hpf [facility] Nitrite Test strip Ql (U)Ord ered By: Amilcar Méndez on 07-14-2024 Nitrite Ql (U) Negative Negative [facility] OB Triage Physician Noteon 0 07-14-2024 OB Triage Physician Note [facility] Medical Records Department [address] [place] [address] OB Triage Physician Note 07/14/24 1630 MR#: [id number] Acct: [id number] Name: STEWART ZUNIGA Rep #: [id number] : 2000 24 From: Milly Singh DO PCP: Care Physician,No Primary Status:REG CLI Y Location: [place] [address] HPI - General General Date of Admission: 07/14/24 Date of Service: 07/14/24 Chief Complaint: ctx's HPI Narrative STEWART ZUNIGA, is a 24 F who presents from the office with ctx's. Improved after PO hydration. Spotting yesterday and no bleeding since. No LOF. No urinary symptoms of changes in bowel movements. [facility] Medical History Physical exam, pre-employment Palpitations Chest [...] Social History (Updated 06/15/24 @ 21:00 by Naren Gold) household members: spouse housing: house Smoking [...] DO; No Primary Care Physician Signed Normal [facility] Protein Test strip Ql (U)Ord ered By: Amilcar Méndez on 07-14-2024 Protein Ql (U) 30 mg/dl High Negative [facility] Squamous epithelial cells de tection in urine sediment by light microscopyOrdered By: Amilcar Méndez on 07-14-2024 Epithelial cells.squamous LM Ql (Urine sed) 0-5 SEEN /hpf 5-10 [facility] Urinalysis, Completeon 07-14 WBC 0-5 SEEN Normal 0-5 [facility] Comment on above: Order Comment: CLEAN CATCH Performed By: #### L 400.0001 #### [facility] Laboratory [address] [place], [place], [id number] ([phone] AMORPHOUS 2+ Normal [facility] Comment on above: Order Comment: CLEAN CATCH Performed By: #### L 400.0001 #### [facility] Laboratory [address] [place], [place], [id number] ([phone] BACTERIA 2+ /hpf Normal None Seen [facility] Comment on above: Order Comment: CLEAN CATCH Performed By: #### L 400.0001 #### [facility] Laboratory [address] [place], [address] EPI,SQUAMOUS 0-5 SEEN Normal 5-10 [facility] Comment on above: Order Comment: CLEAN CATCH Performed By: #### L 400.0001 #### [facility] [address] [place], [address] Mucus Ql (Urine sed) 0 SEEN Normal [facility] Comment on above: Order Comment: CLEAN CATCH Performed By: #### L 400.0001 #### [facility] [address] [place], [address] RBC 0 SEEN Normal 0-5 [facility] Comment on above: Order Comment: CLEAN CATCH Performed By: #### L [id number] #### [facility] Laboratory [address] [place], [address] Urine clarityOrdered By: Madan Méndez on 07-14-2024 Clarity (U) Sl. Cloudy Clear [facility] Urine color determinationOrd ered By: Amilcar Méndez on 07-14-2024 Color (U) Yellow Yellow [facility] Urine cultureOrdered By: Mireille Singh on 07-14-2024 Bacteria identified Cx Nom (U) Positive Abnormal [facility] Urine glucose detectionOrder ed By: Amilcar Méndez on 07-14-2024 Glucose Ql (U) Normal mg/dl Normal [facility] Urine leukocyte esterase det ection by dipstickOrdered By: Amilcar Méndez on 07-14-2024 Leukocyte esterase Test strip Ql (U) 25 /ul High Negative [facility] Urine pHOrdered By: Amilcar Méndez on 07-14-2024 pH (U) 7.0 [pH] 5.0 - 8.0 [facility] Urine sediment bacteria coun t by microscopy (number/high power field)Ordered By: Amilcar Méndez on 07-14-2024 Bacteria LM.HPF (Urine sed) [#/Area] 2 /[HPF] None Seen [facility] Urine specific gravity measu rementOrdered By: Amilcar Méndez on 07-14-2024 Specific gravity (U) [Rel density] 1.015 1.002-1.030 [facility] Urine urobilinogen measureme ntOrdered By: Amilcar Méndez on 07-14-2024 Urobilinogen Ql (U) 4 mg/dl High Normal [facility] White blood cell countOrdere d By: Amilcar Méndez on 07-14-2024 White blood cell count 0-5 SEEN /hpf 0-5 [facility] CNPNon 07-10-2024 CNPN Telephone (OBGYWM) STEWART ZUNIGA ([id number]) 4 F Date Time Provider Department 07/10/24 AMILCAR MÉNDEZ During your visit today, we recorded the following information about you: Sharon Yusuf RN 07/10/2024 8:50 AM Signed Breast pump order received from [facility] Jyoti. To to sign. PEACE Hou Trisha, RN 07/10/2024 10:47 AM Signed Signed and faxed. Sharon Yusuf RN Allergies As of Date: 07/10/2024 Noted Allergy Reaction ADHESIVE 10/23/2023 4 - Hives LACTOSE 10/23/2023 8 - GI Upset Date Reviewed: 07/07/2024 Reviewed by: Georgia Lino MD - Fully Assessed Reason for Visit: Breast Pump [Other] Prescriptions as of 07/10/2024 - pantoprazole DR (PROTONIX) 20 mg tablet Take 1 tablet by mouth once daily. - zj421-yrut-xyzyi acid ( 19) 29 mg iron- 1 [...] second trimester (*06/04/2024 06/27/2024 Encounter Status:Closed by SHARON YUSUF on 07/10/24 Normal [facility] Sheila 07-08-2024 CNPN Telephone (FV3L+D) STEWART ZUNIGA ([id number]) 4 F Date Time Provider Department 07/08/24 [facility] FV3L+D During your visit today, we recorded the following information about you: Allergies As of Date: 07/08/2024 Noted Allergy Reaction ADHESIVE 10/23/2023 4 - Hives LACTOSE 10/23/2023 8 - GI Upset Date Reviewed: 07/07/2024 Reviewed by: Georgia Lino MD - Fully Assessed Reason for Visit: Care Coordination [8488] Cmt: Chris-Gary Consult Called pt for scheduled consult, no answer Prescriptions as of 07/08/2024 - pantoprazole DR (PROTONIX) 20 mg tablet Take 1 tablet by mouth once daily. - gn454-octs-fddwy acid ( 19) 29 mg iron- 1 [...] Encounter Status:Closed by BRENDA HENRIQUEZ on 07/08/24 [facility] UA DIP, URINE (POC)on 2024 BILIRUBIN UA (POCT) Negative Negative [facility] CLARITY UA (POCT) Clear [facility] COLOR UA (POCT) Yellow [facility] GLUCOSE UA (POCT) Negative Negative mg/dL [facility] Hemoglobin Ql (U) Negative Negative [facility] Interpretation and review of laboratory results Abnormal [facility] KETONE UA (POCT) Negative Negative mg/dL [facility] LEUKOCYTES UA (POCT) Trace Abnormal Negative [facility] NITRITE UA (POCT) Negative Negative [facility] PH UA (POCT) 6.5 4.5 - 8.0 [facility] Protein Ql (U) Negative Negative mg/dL [facility] SPECIFIC GRAVITY UA (POCT) 1.015 1.005 - 1.030 [facility] UROBILINOGEN UA (POCT) 4 Abnormal Normal E.U./d L [facility] Location:[facility], [address], [place], [place], [id number] [place] [address] POINT OF CARE [facility] Sheila 06-17-2024 YURY Telephone (AURY) STEWART ZUNIGA ([id number]) 4 F Date Time Provider Department 06/17/24 [place]IA LINO During your visit today, we recorded the following information about you: Juju You RN 06/17/2024 12:02 PM Addendum 29w4d Pt calling re: lab results from 06/13/24. States she received notification from J that she was not anemic; however, she [...] of range. Please advise and will send Wurldtecht message to Pt with response. PEACE Osborn Jennifer, MD 06/17/2024 12:06 PM Signed Her CBC is fine. There is nothing of concern. The labs values are established for non patient so they will flag as abnormal even when they are not Juju You RN 06/17/2024 12:18 PM Signed Pt notified and voiced understanding. Juju You RN Allergies As of Date: 06/17/2024 Noted Allergy Reaction ADHESIVE 10/23/2023 4 - Hives LACTOSE 10/23/2023 8 - GI Upset Date Reviewed: 06/04/2024 Reviewed by: Manas Vogel MA - Fully Assessed Reason for Visit: Patient Question [0537] Prescriptions as of 06/17/2024 - pantoprazole DR (PROTONIX) 20 mg tablet Take 1 tablet by mouth once daily. - bf150-evhp-vdekz acid ( 19) 29 mg iron- 1 [...] in second trimester (*06/04/2024 Encounter Status:Closed by JUJU YOU on 06/17/24 Normal [facility] OB Triage Physician Noteon 0 06-16-2024 OB Triage Physician Note [facility] Medical Records Department [address] [place] [address] OB Triage Physician Note 06/16/24 0607 MR#: [id number] Acct: [id number] Name: STEWART ZUNIGA Rep #: [id number] : 2000 24 From: Georgia Lino MD PCP: Care Physician,No Primary Status:DEP CLI Y Location: [facility] HPI - General General Date of Admission: 06/15/24 Date of Service: 06/15/24 Chief Complaint: cramping HPI Narrative STEWART ZUNIGA, is a 24 F who presents uterine cramping. Seen in ED with SOB and cleared. Given fluids in the ED and K+ replaced. Cervix closed. Maternal Data Information Final JEM: 08/29/24 Gestational age: 31 [facility] Medical History Physical exam, pre-employment [...] Social History (Updated 06/15/24 @ 21:00 by Naren Gold) household members: spouse housing: house Smoking [...] MD; No Primary Care Physician Signed Normal [facility] 12 Lead EKGon 06-15-2024 12 Lead EKG [facility] Cardiovascular Services [address] [place] [address] 12 Lead EKG 06/15/242124 MR#: [id number] Acct: [id number] Name: STEWART ZUNIGA Rep #: [id number] : 2000 24 From: Rubio Paulino MD Attending Dr: Dr. Georgia Lino MD Status: D EP CLI Ordering Dr: Frankie Mcdaniel DO Date: 5 Location: [facility] Sex: F C Admitted: Test Reason : Blood Pressure : */* mmHG Vent. Rate : 85 BPM Atrial Rate : 85 BPM P-R Int : 138 ms QRS Dur : 70 ms QT Int : 344 ms P-R-T Axes : 41 57 38 degrees QTcB Int : 409 ms Normal sinus rhythm Normal ECG Confirmed by Rubio Paulino ([id number]), editor farm journal SHANTANU HARRIS ([id number]) on 06/16/2024 1:15:49 PM Referred By: Georgia Lino Confirmed By: Rubio Paulino 06/16/24 1315 Date Rubio Paulino MD CC: Dr. Frankie Mcdaniel DO; Dr. Georgia Lino MD; No Primary Care Physician Signed Normal [facility] Absolute lymphocyte countOrd ered By: Frankie Mcdaniel on 06-15-2024 Lymphocytes Auto (Unsp spec) [#/Vol] 3.28 10*3/uL 0.83-4.51 [facility] Absolute neutrophil countOrd ered By: Frankie Mcdaniel on 06-15-2024 Neutrophils (Bld) [#/Vol] 9.9 10*3/uL High 2.0-7.7 [facility] Anion gap in Serum or Plasma Ordered By: Frankie Mcdaniel on 06-15-2024 Anion gap [Moles/Vol] 12 mmol/L 5-15 [facility] Automated lymphocyte count a s percentage of total leukocytesOrdered By: Frankie Mcdaniel on 06-15-2024 Lymphocytes/100 WBC Auto (Unsp spec) 21.7 % 19-41 [facility] BUN/creatinine ratioOrdered By: Frankie Mcdaniel on 06-15-2024 Urea nitrogen/Creatinine [Mass ratio] 5.0 mg/mg Low 10-20 [facility] Basophil percentageOrdered B y: Frankie SosaCristhianFlores on 06-15-2024 Basophils/100 WBC (Bld) 0.3 % 0-1 [facility] Bilirubin Test strip Ql (U)O rdered By: Frankie ArellanoMann on 06-15-2024 Bilirubin Ql (U) Negative Negative [facility] Bilirubin, totalOrdered By: Frankie ArellanoferminFlores on 06-15-2024 Bilirubin [Mass/Vol] 0.20 mg/dL 0.00-1.30 [facility] CBC W/Diff, Automatedon 06-03 Absolute Lymph 3.28 X10 3/uL Normal 0.83-4.51 [facility] Comment on above: Performed By: #### L 499.0042 #### [facility] Laboratory [address] [place], [address] Absolute Neut 9.9 X10 3/uL High 2.0-7.7 [facility] Comment on above: Performed By: #### L 499.0042 #### [facility] [address] [place], [address] Basophils/100 WBC (Bld) 0.3 % Normal 0-1 [facility] Comment on above: Performed By: #### L 499.0042 #### [facility] [address] [place], [address] Eosinophils/100 WBC (Bld) 4.9 % Normal 0-5 [facility] Comment on above: Performed By: #### L 499.0042 #### [facility] [address] [place], [address] Erythrocyte distribution width (RBC) [Ratio] 13.6 % Normal 11.6-14.6 [facility] Comment on above: Performed By: #### L 499.0042 #### [facility] [address] [place], [address] Hematocrit (Bld) [Volume fraction] 38.5 % Normal 37-47 [facility] Comment on above: Performed By: #### L 499.0042 #### [facility] [address] [place], [address] Hemoglobin (Bld) [Mass/Vol] 12.9 g/dL Normal 12.0-15.0 [facility] Comment on above: Performed By: #### L 499.0042 #### [facility] [address] [place], [address] IG% 1.300 High 0.0-0.9 [facility] Comment on above: Result Comment: IG% - Immature Granulocytes (promyelocytes, myelocytes and metamyelocytes) > 1% indicates that a LEFT SHIFT is Present. Performed By: #### L 499.0042 #### [facility] Laboratory [address] [place], [address] Lymphocytes/100 WBC (Bld) 21.7 % Normal 19-41 [facility] Comment on above: Performed By: #### L 499.0042 #### [facility] [address] [place], [address] MCH (RBC) [Entitic mass] 30.9 pg Normal 27.0-32.0 [facility] Comment on above: Performed By: #### L 499.0042 #### [facility] [address] [place], [address] MCHC (RBC) [Mass/Vol] 33.5 g/dL Normal 32-36 [facility] Comment on above: Performed By: #### L 499.0042 #### [facility] [address] [place] [place], [address] MCV (RBC) [Entitic vol] 92.3 fL Normal 81-99 [facility] Comment on above: Performed By: #### L 499.0042 #### [facility] [address] [place], [address] Monocytes/100 WBC (Bld) 6.4 % Normal 0-10 [facility] Comment on above: Performed By: #### L 499.0042 #### [facility] [address] [place], [address] Neutrophils/100 WBC (Bld) 65.4 % Normal 47-70 [facility] Comment on above: Performed By: #### L 499.0042 #### [facility] [address] [place], [address] Nucleated RBC (Bld) [#/Vol] 0 10*3/uL Normal 0-5 [facility] Comment on above: Performed By: #### L 499.0042 #### [facility] [address] [place], [address] Platelet mean volume (Bld) [Entitic vol] 10.2 fL Normal 6.2-12.0 [facility] Comment on above: Performed By: #### L 499.0042 #### [facility] [address] [place], [address] Platelets (Bld) [#/Vol] 264 10*3/uL Normal 150-450 [facility] Comment on above: Performed By: #### L 499.0042 #### [facility] [address] [place], [address] RBC (Bld) [#/Vol] 4.17 10*6/uL Low 4.2-5.4 [facility] Comment on above: Performed By: #### L 499.0042 #### [facility] [address] [place], [address] RDW SD 45.6 fl High 35.1-43.9 [facility] Comment on above: Performed By: #### L 499.0042 #### [facility] [address] [place], [address] WBC (Bld) [#/Vol] 15.1 10*3/uL High 4.4-11.0 [facility] Comment on above: Performed By: #### L 499.0042 #### [facility] [address] [place], [place], [address] CTA Chest W/WO Contraston CTA Chest W/WO Contrast [facility] Imaging Services [address] [place] [place] [address] CTA Chest W/WO Contrast MR#: [id number] Acct: [id number] Name: STEWART ZUNIGA Rep #: [id number] : 2000 F 24 From: Joshua Dawson PCP: Care Physician,No Primary Status: [facility] ER Study: CTA Chest W/WO Contrast Date of Exam: 06/15/24 Exam# [id number] Ordering Dr: Frankie Mcdaniel DO PROCEDURE: CTA [...] pelvis. Reading Location: [facility] CC: Dr. Frankie Mcdaniel, DO; No Primary Care Physician Rotor Coil Taper: Signed Normal [facility] Carbon dioxide, total [Moles /volume] in Central venous bloodOrdered By: Frankie Mcdaniel on 06-15-2024 CO2 [Moles/Vol] 20.9 mmol/L Low 21.0-32.0 [facility] Chloride assayOrdered By: Joseph Mcdaniel on 06-15-2024 Chloride [Moles/Vol] 104 mmol/L 98-108 [facility] Comprehensive Metabolic Prof ilon 06-15-2024 Albumin [Mass/Vol] 3.8 g/dL Normal 3.5-5.0 [facility] Comment on above: Performed By: #### L 499.0042 #### [facility] [address] [place], [address] Albumin/Globulin [Mass ratio] 1.5 {ratio} Normal 0.9-2.4 [facility] Comment on above: Performed By: #### L 499.0042 #### [facility] [address] [place], [address] ALK PHOS 84 U/L Normal 35-104 [facility] Comment on above: Performed By: #### L 499.0042 #### [facility] [address] [place], [address] ALT [Catalytic activity/Vol] 8 U/L Normal <=34 [facility] Comment on above: Performed By: #### L 499.0042 #### [facility] [address] [place], [address] AST [Catalytic activity/Vol] 14 U/L Normal <=31 [facility] Comment on above: Performed By: #### L 499.0042 #### [facility] [address] [place], [address] Bilirubin [Mass/Vol] 0.20 mg/dL Normal 0.00-1.30 [facility] Comment on above: Performed By: #### L 499.0042 #### [facility] [address] [place], [address] BUN/CRE 5.0 RATIO Low 10-20 [facility] Comment on above: Performed By: #### L 499.0042 #### [facility] [address] [place], [address] Calcium [Mass/Vol] 9.0 mg/dL Normal 7.6-11.0 [facility] Comment on above: Performed By: #### L 499.0042 #### [facility] [address] [place], [address] Chloride [Moles/Vol] 104 mmol/L Normal 98-108 [facility] Comment on above: Performed By: #### L 499.0042 #### [facility] [address] [place], [address] CO2 [Moles/Vol] 20.9 mmol/L Low 21.0-32.0 [facility] Comment on above: Performed By: #### L 499.0042 #### [facility] [address] [place], [address] Creatinine [Mass/Vol] 0.88 mg/dL Normal 0.70-1.20 [facility] Comment on above: Performed By: #### L 499.0042 #### [facility] [address] [place], [address] ECRCL 91.07 ml/min Normal 50-250 [facility] Comment on above: Performed By: #### L 499.0042 #### [facility] [address] [place], [address] GAP 12 Normal 5-15 [facility] Comment on above: Performed By: #### L 499.0042 #### [facility] [address] [place], [address] GFR/1.73 sq M.predicted among non-blacks MDRD (S/P/Bld) [Vol rate/Area] 95 mL/min/{1.73_m2} Normal >60 [facility] Comment on above: Result Comment: mL/m in/1.73m2 CKD-EPI Creatinine Equation (2020) Performed By: #### L 499.0042 #### [facility] [address] [place], [address] Globulin (S) [Mass/Vol] 2.6 g/dL Normal 2.2-4.2 [facility] Comment on above: Performed By: #### L 499.0042 #### [facility] [address] [place], [address] Glucose [Mass/Vol] 86 mg/dL Normal 70-99 [facility] Comment on above: Performed By: #### L 499.0042 #### [facility] [address] [place], [address] Potassium [Moles/Vol] 3.2 mmol/L Low 3.3-5.1 [facility] Comment on above: Performed By: #### L 499.0042 #### [facility] [address] [place], [address] Sodium [Moles/Vol] 137 mmol/L Normal 133-145 [facility] Comment on above: Performed By: #### L 499.0042 #### [facility] [address] [place], [address] T PROT 6.4 g/dL Normal 5.9-8.4 [facility] Comment on above: Performed By: #### L 499.0042 #### [facility] [address] [place], [address] Urea nitrogen [Mass/Vol] 4 mg/dL Normal 4-19 [facility] Comment on above: Performed By: #### L 499.0042 #### [facility] [address] [place], [address] Emergency Department Summary on 06-15-2024 Emergency Department Summary [facility] Medical Records Department [address] [place] [address] Emergency Department Summary 06/15/24 MR#: [id number] Acct: [id number] Name: STEWART ZUNIGA Rep #: [id number] : 2000 24 From: Frankie Mcdaniel DO PCP: Care Physician,No Primary Status:DEP CLI Location: [facility]OUT HPI History of Present Illness Chief Complaint: Shortness of Breath Narrative Narrative: Chief complaint and HPI: 24-year-old female who is G1, P0 and 29 weeks who follows with [facility] presents for evaluation of shortness of breath and abdominal cramping. Patient states she received RhoGAM shot on Sunday given that she is O-. She states since then she has had increased shortness of breath and intermittent abdominal/pelvic cramping. She denies any vaginal bleeding or discharge. Shortness of breath is worse with exertion and walking. She states that she attempted to call the [facility] but did not get a return call [...] intact Psych: Cooperative, appropriate mood and affect [facility] Medical History Physical exam, pre-employment Palpitations Chest [...] Social History (Updated 06/15/24 @ 21:00 by Naren Gold) household members: spouse housing: house Smoking [...] Blood Pressur (more content not included)... Normal [facility] Eosinophil percentageOrdered By: Frankie Mcdaniel on 06-15-2024 Eosinophils/100 WBC (Bld) 4.9 % 0-5 [facility] Epithelial cells.squamous LM Ql (Urine sed)Ordered By: Frankie Mcdaniel on 06-15-2024 Epithelial cells.squamous LM.HPF (Urine sed) [#/Area] 0 /[HPF] 5-10 [facility] Erythrocyte distribution wid th (RBC) [Ratio]Ordered By: Seaford Violeta on 06-15-2024 Erythrocyte distribution width (RBC) [Entitic vol] 45.6 fL High 35.1-43.9 [facility] Erythrocyte distribution wid th ratioOrdered By: Seaford Violeta on 06-15-2024 Erythrocyte distribution width (RBC) [Ratio] 13.6 % 11.6-14.6 [facility] Erythrocyte distribution wid th standard deviationOrdered By: [facility] Tanner on 06-15-2024 Erythrocyte distribution width (RBC) [Ratio] 45.6 fl High 35.1-43.9 [facility] Estimation of creatinine yaniv aranceOrdered By: Frankie Mcdaniel on 06-15-2024 Estimated Creatinine Clearance Calc 91.07 ml/min 50-250 [facility] GFR/1.73 sq M.predicted robyn g non-blacks MDRD (S/P/Bld) [Vol rate/Area]Ordered By: Frankie Mcdaniel on 06-15-2024 Estimated GFR (MDRD) Non-Af Amer 95 >60 [facility] Comment on above: mL/min/1.73m2 CKD-EP I Creatinine Equation (2020) Glomerular filtration rate ( GFR) estimation/1.73 sq m using serum, plasma, or whole bOrdered By: Frankie Mcdaniel on 06-15-2024 GFR/1.73 sq M.predicted among non-blacks MDRD (S/P/Bld) [Vol rate/Area] 95 mL/min/{1.73_m2} >60 [facility] Comment on above: mL/min/1.73m2 CKD-EP I Creatinine Equation (2020) Glucose Ql (U)Ordered By: Joseph Mcdaniel on 06-15-2024 Urine Glucose (UA) Normal mg/dl Normal [facility] Hematocrit Auto (Bld) [Volum e fraction]Ordered By: [facility] on 06-15-2024 Hematocrit (Bld) [Volume fraction] 38.5 % 37-47 [facility] Hemoglobin measurementOrdere d By: Frankie Mcdaniel on 06-15-2024 Hemoglobin (Bld) [Mass/Vol] 12.9 g/dL 12.0-15.0 [facility] Immature granulocytes/100 WB C Auto (Bld)Ordered By: Frankie Mcdaniel on 06-15-2024 Immature granulocytes/100 WBC (Bld) 1.300 % High 0.0-0.9 [facility] Comment on above: IG% - Immature Granu locytes (promyelocytes, myelocytes and metamyelocytes) > 1% indicates that a LEFT SHIFT is Present. Ketones Test strip Ql (U)Ord ered By: Frankie Mcdaniel on 06-15-2024 Ketones Ql (U) Negative Negative [facility] L499.0042on 06-15-2024 Trop T High Sen Normal <=14 [facility] Comment on above: Result Comment: Nestor russell via OM: Ordered Performed By: #### L 499.0042 #### [facility] [address] [place], [address] L501.4021on 06-15-2024 Trop T High Sen < 6 Normal <=14 [facility] Comment on above: Performed By: #### L 501.4021 #### [facility] [address] [place], [address] L503.7505on 06-15-2024 Natriuretic peptide B (Bld) [Mass/Vol] 59 pg/mL Normal <=450 [facility] Comment on above: Result Comment: Hear t Failure Unlikely: < 300 pg/mL Heart Failure Likely < 50 Years: > 450 pg/mL 50-75 Years: > 900 pg/mL >75 Years: > 1800 pg/mL Performed By: #### L 501.4021 #### [facility] [address] [place], [address] LDHon 06-15-2024 LDH 169 U/L Normal 84-246 [facility] Comment on above: Performed By: #### L 501.4021 #### [facility] [address] [place], [address] Laboratory - Chemistry and C hemistry - challengeOrdered By: Frankie Mcdaniel on 06-15-2024 AST [Catalytic activity/Vol] 14 U/L <32 [facility] Lactate dehydrogenase (LDH) measurementOrdered By: Frankie Mcdaniel on 06-15-2024 LDH [Catalytic activity/Vol] 169 U/L 84-246 [facility] Lipaseon 06-15-2024 Lipase [Catalytic activity/Vol] 26 U/L Normal 13-75 [facility] Comment on above: Result Comment: Bacilio casarez note: LIPASE revised reference range effective 22. New Lipase methodology. Expected to produce lower values than the previous assay method. NEW Reference Range: 13 - 75 U/L Performed By: #### L 501.4021 #### [facility] [place], [address] Lipase measurementOrdered By : Frankie Mcdaniel on 06-15-2024 Lipase [Catalytic activity/Vol] 26 U/L 13-75 [facility] Comment on above: Please note:LIPASE r evised reference range effective 22. New Lipase methodology. Expected to produce lower values than the previous assay method. NEW Reference Range: 13 - 75 U/L Lymphocytes Auto (Unsp spec) [#/Vol]Ordered By: Frankie Mcdaniel on 06-15-2024 Lymphocytes (Bld) [#/Vol] 3.28 10*3/uL 0.83-4.51 [facility] Lymphocytes/100 WBC Auto (Un sp spec)Ordered By: Seaford Violeta on 06-15-2024 Lymphocytes/100 WBC (Bld) 21.7 % 19-41 [facility] MCV (mean corpuscular volume ) determinationOrdered By: Frankie Mcdaniel on 06-15-2024 MCV (RBC) [Entitic vol] 92.3 fL 81-99 [facility] Mean corpuscular hemoglobin (MCH) determinationOrdered By: Seaford Violeta on 06-15-2024 MCH (RBC) [Entitic mass] 30.9 pg 27.0-32.0 [facility] Mean corpuscular hemoglobin concentration (MCHC) determinationOrdered By: Seaford Violeta on 06-15-2024 MCHC (RBC) [Mass/Vol] 33.5 g/dL 32-36 [facility] Mean platelet volume determi nationOrdered By: Seaford Violeta on 06-15-2024 Platelet mean volume (Bld) [Entitic vol] 10.2 fL 6.2-12.0 [facility] Microscopic analysis of urin e for red blood cells (RBC)Ordered By: Frankie Mcdaniel on 06-15-2024 Microscopic analysis of urine for red blood cells (RBC) 0 SEEN /hpf 0-5 [facility] Urine RBC 0 SEEN /hpf 0-5 [facility] Monocyte percentageOrdered B y: Frankie Mcdaniel on 06-15-2024 Monocytes/100 WBC (Bld) 6.4 % 0-10 [facility] Mucus LM Ql (Urine sed)Order ed By: Frankie Mcdaniel on 06-15-2024 Mucus Ql (Urine sed) 0 SEEN /hpf [facility] Natriuretic peptide.B prohor nathaly N-Terminal [Mass/Vol]Ordered By: Frankie Mcdaniel on 06-15-2024 Natriuretic peptide B (Bld) [Mass/Vol] 59 pg/mL <450 [facility] Comment on above: Heart Failure Unlike ly: < 300 pg/mLHeart Failure Likely< 50 Years: > 450 pg/mL50-75 Years: > 900 pg/mL>75 Years: > 1800 pg/mL Natriuretic peptide.B prohor nathaly N-Terminal [Mass/volume] in Serum or PlasmaOrdered By: Frankie Mcdaniel on 06-15-2024 Natriuretic peptide.B prohormone N-Terminal [Mass/Vol] 59 pg/mL <450 [facility] Comment on above: Heart Failure Unlike ly: < 300 pg/mLHeart Failure Likely< 50 Years: > 450 pg/mL50-75 Years: > 900 pg/mL>75 Years: > 1800 pg/mL Neutrophil percentageOrdered By: Frankie Mcdaniel on 06-15-2024 Neutrophils/100 WBC (Bld) 65.4 % 47-70 [facility] Nitrite Test strip Ql (U)Ord ered By: Frankie Mcdaniel on 06-15-2024 Nitrite Ql (U) Negative Negative [facility] Nucleated red blood cell per centageOrdered By: Frankie Mcdaniel on 06-15-2024 Nucleated RBC/100 WBC (Bld) [Ratio] 0 % 0-5 [facility] Platelet countOrdered By: Joseph Mcdaniel on 06-15-2024 Platelets (Bld) [#/Vol] 264 10*3/uL 150-450 [facility] Potassium (Unsp spec) [Mass/ Vol]Ordered By: Frankie Mcdaniel on 06-15-2024 Potassium [Moles/Vol] 3.2 mmol/L Low 3.3-5.1 [facility] Potassium measurement (mass/ volume)Ordered By: Frankie Mcdaniel on 06-15-2024 Potassium (Unsp spec) [Mass/Vol] 3.2 mmol/L Low 3.3-5.1 [facility] Protein Test strip Ql (U)Ord ered By: Frankie Mcdaniel on 06-15-2024 Protein Ql (U) 15 mg/dl High Negative [facility] RBC Auto (Bld) [#/Vol]Ordere d By: Frankie Mcdaniel on 06-15-2024 RBC (Bld) [#/Vol] 4.17 10*6/uL Low 4.2-5.4 [facility] Serum creatinine measurement (mass/volume)Ordered By: Frankie Mcdaniel on 06-15-2024 Creatinine [Mass/Vol] 0.88 mg/dL 0.70-1.20 [facility] Serum globulin measurementOr dered By: Frankie Mcdaniel on 06-15-2024 Globulin (S) [Mass/Vol] 2.6 g/dL 2.2-4.2 [facility] Serum glucose measurement (m ass/volume)Ordered By: Frankie Mcdaniel on 06-15-2024 Glucose [Mass/Vol] 86 mg/dL 70-99 [facility] Serum or plasma alanine bobo otransferase (ALT) measurementOrdered By: Frankie Mcdaniel on 06-15-2024 ALT [Catalytic activity/Vol] 8 U/L <35 [facility] Serum or plasma albumin noa urement (mass/volume)Ordered By: Frankie Tanner on 06-15-2024 Albumin [Mass/Vol] 3.8 g/dL 3.5-5.0 [facility] Serum or plasma albumin/glob ulin mass ratioOrdered By: Frankie Mcdaniel on 06-15-2024 Albumin/Globulin [Mass ratio] 1.5 {ratio} 0.9-2.4 [facility] Serum or plasma alkaline nancy sphatase measurementOrdered By: Frankie Mcdaniel on 06-15-2024 ALP [Catalytic activity/Vol] 84 U/L 35-104 [facility] Serum or plasma calcium noa urement (mass/volume)Ordered By: Frankie Tanner on 06-15-2024 Calcium [Mass/Vol] 9.0 mg/dL 7.6-11.0 [facility] Serum or plasma urea nitroge n measurement (mass/volume)Ordered By: Frankie Mcdaniel on 06-15-2024 Urea nitrogen [Mass/Vol] 4 mg/dL 4-19 [facility] Sodium levelOrdered By: Jeff Mcdaniel on 06-15-2024 Sodium [Moles/Vol] 137 mmol/L 133-145 [facility] Squamous epithelial cells de tection in urine sediment by light microscopyOrdered By: Frankie Mcdaniel on 06-15-2024 Epithelial cells.squamous LM Ql (Urine sed) 0-5 SEEN /hpf - [facility] Total proteinOrdered By: Jc Mcdaniel on 06-15-2024 Protein [Mass/Vol] 6.4 g/dL 5.9-8.4 [facility] Troponin T.cardiac High sens itivity method [Mass/Vol]Ordered By: Frankie Tanner on 06-15-2024 Troponin T High Sensitivity < 6 ng/L <14 [facility] Troponin T.cardiac [Mass/vol ume] in Serum or Plasma by High sensitivity methodOrdered By: Frankie Mcdaniel on 06-15-2024 Troponin T.cardiac High sensitivity method [Mass/Vol] < 6 ng/L <14 [facility] Urinalysis, Completeon 06-15 EPI,SQUAMOUS 0-5 SEEN Normal 5-10 [facility] Comment on above: Order Comment: CLEAN CATCH Performed By: #### L 400.0001 #### [facility] [address] [place], [address] BACTERIA 0 SEEN Normal None Seen [facility] Comment on above: Order Comment: CLEAN CATCH Performed By: #### L 400.0001 #### [facility] [address] [place], [place], [address] Mucus Ql (Urine sed) 0 SEEN Normal [facility] Comment on above: Order Comment: CLEAN CATCH Performed By: #### L 400.0001 #### [facility] [address] [facility] [address] RBC 0 SEEN Normal 0-5 [facility] Comment on above: Order Comment: CLEAN CATCH Performed By: #### L 400.0001 #### [facility] [address] [facility] [address] WBC 0 SEEN Normal 0-5 [facility] Comment on above: Order Comment: CLEAN CATCH Performed By: #### L 400.0001 #### [facility] [address] [facility] [id number] Urine blood detectionOrdered By: Frankie Mcdaniel on 06-15-2024 Urine Occult Blood Negative Negative [facility] Urine clarityOrdered By: Jc Mcdaniel on 06-15-2024 Clarity (U) Sl. Cloudy Clear [facility] Urine color determinationOrd ered By: Frankie Mcdaniel on 06-15-2024 Color (U) Yellow Yellow [facility] Urine glucose detectionOrder ed By: Frankie Mcdaneil on 06-15-2024 Glucose Ql (U) Normal mg/dl Normal [facility] Urine leukocyte esterase det ection by dipstickOrdered By: Frankie Mcdaniel on 06-15-2024 Leukocyte esterase Test strip Ql (U) Negative Negative [facility] Urine pHOrdered By: Frankie Darnell on 06-15-2024 pH (U) 7.0 [pH] 5.0 - 8.0 [facility] Urine sediment bacteria coun t by microscopy (number/high power field)Ordered By: Frankie Mcdaniel on 06-15-2024 Bacteria LM.HPF (Urine sed) [#/Area] 0 /[HPF] None Seen [facility] Urine specific gravity measu rementOrdered By: Frankie Mcdaniel on 06-15-2024 Specific gravity (U) [Rel density] 1.005 1.002-1.030 [facility] Urine urobilinogen measureme ntOrdered By: Frankie Mcdaniel on 06-15-2024 Urobilinogen Ql (U) Normal mg/dl Normal [facility] Urobilinogen Ql (U)Ordered B y: Frankie Mcdaniel on 06-15-2024 Urine Urobilinogen Normal mg/dl Normal [facility] White blood cell (WBC) count Ordered By: Frankie Mcdaniel on 06-15-2024 WBC (Bld) [#/Vol] 15.1 10*3/uL High 4.4-11.0 [facility] White blood cell countOrdere d By: Frankie Mcdaniel on 06-15-2024 Urine WBC 0 SEEN /hpf 0-5 [facility] White blood cell count 0 SEEN /hpf 0-5 [facility] CBC W Auto Differential pane l (Bld)on 06-13-2024 Basophils (Bld) [#/Vol] 0.04 10*3/uL Normal <0.11 [facility] Comment on above: Order Comment: Speci men Type: BLOOD SPECIMENOrdering Facility: [facility] Address: [address] [place] [address] Performed By: #### 5 7021-8 ####[facility] [id number] [place] [address] [place] Basophils/100 WBC (Bld) 0.3 % Normal C [facility] Comment on above: Order Comment: Speci men Type: BLOOD SPECIMENOrdering Facility: [facility] Address: [address] [place] [address] Performed By: #### 5 7021-8 ####[facility] [id number] [place] [address] [place] Differential cell count method Nom (Bld) Auto Normal [facility] Comment on above: Order Comment: Speci men Type: BLOOD SPECIMENOrdering Facility: [facility] Address: [address] [place] [address] Performed By: #### 5 7021-8 ####[facility] CENTERBJORNDelia [id number] [place] [address] [place] Eosinophils (Bld) [#/Vol] 0.47 10*3/uL High <0.46 [facility] Comment on above: Order Comment: Speci men Type: BLOOD SPECIMENOrdering Facility: [facility] Address: [address] [place] [address] Performed By: #### 5 7021-8 ####[facility] HOSPITALDelia [id number] [place] [address] [place] Eosinophils/100 WBC (Bld) 3.5 % Normal [facility] Comment on above: Order Comment: Speci men Type: BLOOD SPECIMENOrdering Facility: [facility] Address: [address] [place] [address] Performed By: #### 5 7021-8 ####[facility] [id number] [place] [address] [place] Erythrocyte distribution width (RBC) [Ratio] 13.7 % Normal 11.5-15.0 [facility] Comment on above: Order Comment: Speci men Type: BLOOD SPECIMENOrdering Facility: [facility] Address: [address] [place] [address] Performed By: #### 5 7021-8 ####[facility] [id number] [place] [address] [place] Hematocrit (Bld) [Volume fraction] 37.4 % Normal 36.0-46.0 [facility] Comment on above: Order Comment: Speci men Type: BLOOD SPECIMENOrdering Facility: [facility] Address: [address] [place] [address] Performed By: #### 5 7021-8 ####[facility] TRACISANDRA [id number] [place] [address] [place] Hemoglobin (Bld) [Mass/Vol] 13.1 g/dL Normal 11.5-15.5 [facility] Comment on above: Order Comment: Speci men Type: BLOOD SPECIMENOrdering Facility: [facility] Address: [address] [place] [address] Performed By: #### 5 7021-8 ####[facility] HOSPITALDelia [id number] [place] [address] [place] Immature granulocytes (Bld) [#/Vol] 0.35 10*3/uL High <0.10 [facility] Comment on above: Order Comment: Speci men Type: BLOOD SPECIMENOrdering Facility: [facility] Address: [address] [place] [address] Performed By: #### 5 7021-8 ####[facility] HOSPITALDelia [id number] [place] [address] [place] Immature granulocytes/100 WBC (Bld) 2.6 % Normal [facility] Comment on above: Order Comment: Speci men Type: BLOOD SPECIMENOrdering Facility: [facility] Address: [address] [place] [address] Performed By: #### 5 7021-8 ####[facility] [id number] [place] [address] [place] Lymphocytes (Bld) [#/Vol] 2.24 10*3/uL Normal 1.00-4.00 [facility] Comment on above: Order Comment: Speci men Type: BLOOD SPECIMENOrdering Facility: [facility] Address: [address] [place] [address] Performed By: #### 5 7021-8 ####[facility] [id number] [place] [address] [place] Lymphocytes/100 WBC (Bld) 16.7 % Normal [facility] Comment on above: Order Comment: Speci men Type: BLOOD SPECIMENOrdering Facility: [facility] Address: [address] [place] [address] Performed By: #### 5 7021-8 ####[facility]OSPITALFABI [id number] [place] [address] [place] MCH (RBC) [Entitic mass] 31.6 pg Normal 26.0-34.0 [facility] Comment on above: Order Comment: Speci men Type: BLOOD SPECIMENOrdering Facility: [facility] Address: [address] [place] [address] Performed By: #### 5 7021-8 ####[facility] [id number] [place] [address] [place] MCHC (RBC) [Mass/Vol] 35.0 g/dL Normal 30.5-36.0 [facility] Comment on above: Order Comment: Speci men Type: BLOOD SPECIMENOrdering Facility: [facility] Address: [address] [place] [address] Performed By: #### 5 7021-8 ####[facility] [id number] [place] [address] [place] MCV (RBC) [Entitic vol] 90.1 fL Normal 80.0-100.0 C [facility] Comment on above: Order Comment: Speci men Type: BLOOD SPECIMENOrdering Facility: [facility] Address: [address] [place], [place] [id number] Performed By: #### 5 7021-8 ####[facility] [id number] [place] [address] [place] Monocytes (Bld) [#/Vol] 0.90 10*3/uL High <0.87 [facility] Comment on above: Order Comment: Speci men Type: BLOOD SPECIMENOrdering Facility: [facility] Address: [address] [place] [address] Performed By: #### 5 7021-8 ####[facility] HOSPITALA [id number] [place] [address] [place] Monocytes/100 WBC (Bld) 6.7 % Normal [facility] Comment on above: Order Comment: Speci men Type: BLOOD SPECIMENOrdering Facility: [facility] Address: [address] [place] [address] Performed By: #### 5 7021-8 ####[facility] [id number] [place] [address] [place] Neutrophils (Bld) [#/Vol] 9.38 10*3/uL High 1.45-7.50 [facility] Comment on above: Order Comment: Speci men Type: BLOOD SPECIMENOrdering Facility: [facility] Address: [address] [place] [address] Performed By: #### 5 7021-8 ####[facility] [id number] [place] [address] [place] Neutrophils/100 WBC (Bld) 70.2 % Normal [facility] Comment on above: Order Comment: Speci men Type: BLOOD SPECIMENOrdering Facility: [facility] Address: [address] [place] [address] Performed By: #### 5 7021-8 ####[facility] [id number] [place] [address] [place] Nucleated RBC (Bld) [#/Vol] 10*3/uL Normal <0.01 [facility] Comment on above: Order Comment: Speci men Type: BLOOD SPECIMENOrdering Facility: [facility] Address: [address] [place] [address] Performed By: #### 5 7021-8 ####[facility] SUDHA [id number] [place] [address] [place] Nucleated RBC/100 WBC (Bld) [Ratio] 0.0 /100 WBC Normal [facility] Comment on above: Order Comment: Speci men Type: BLOOD SPECIMENOrdering Facility: [facility] Address: [address] [place] [address] Performed By: #### 5 7021-8 ####[facility] TRACILIMAVILLENCHALEIGH [id number] [place] [address] [place] Platelet mean volume (Bld) [Entitic vol] 9.6 fL Normal 9.0-12.7 [facility] Comment on above: Order Comment: Speci men Type: BLOOD SPECIMENOrdering Facility: [facility] Address: [address] [place] [address] Performed By: #### 5 7021-8 ####[facility] TRACILIMAVILLENCFABIA [id number] [place] [address] [place] Platelets (Bld) [#/Vol] 241 10*3/uL Normal 150-400 [facility] Comment on above: Order Comment: Speci men Type: BLOOD SPECIMENOrdering Facility: [facility] Address: [address] [place] [address] Performed By: #### 5 7021-8 ####[facility] CENTERNCLIA [id number] [place] [address] [place] RBC (Bld) [#/Vol] 4.15 10*6/uL Normal 3.90-5.20 [facility] Comment on above: Order Comment: Speci men Type: BLOOD SPECIMENOrdering Facility: [facility] Address: [address] [place] [address] Performed By: #### 5 7021-8 ####[facility]ENTERNCSTEWARD [facility] [id number] [place] [address] [place] WBC (Bld) [#/Vol] 13.38 10*3/uL High 3.70-11.00 [facility] Comment on above: Order Comment: Speci men Type: BLOOD SPECIMENOrdering Facility: [facility] Address: [address] [place] [address] Performed By: #### 5 7021-8 ####[facility] [id number] [place] [address] [place] GESTATIONAL GLUCOSE SCREEN, 1-HOUR, 50 GRAM, NON-FASTINGon 06-13-2024 Glucose [Mass/Vol] 102 mg/dL Normal 74-134 [facility] Comment on above: Order Comment: Speci men Type: BLOOD SPECIMENOrdering Facility: [facility] Address: [address] [place] [address] Result Comment: [facility] Congress of Obstetricians and Gynecologists (Claudio/Berry) guidelines state a gestational diabetes mellitus positive screen is made, in women not previously diagnosed with overt diabetes, when the 1 hr plasma glucose level is equal to or above 140 mg/dL. [facility] Legal Analyst and [facility] [place] recommends a 135 mg/dL cutoff. Performed By: #### G LTGST ####[facility] [id number] [place] [address] [place] Reagin and Treponema pallidu m IgG and IgM [Interp]on 06-13-2024 T. pallidum IgG+IgM IA Ql (S) Non-Reactive Normal Nonreactive [facility] Comment on above: Order Comment: Speci men Type: BLOOD SPECIMENOrdering Facility: [facility] Address: [address] [place] [address] Performed By: #### 7 3752-8 ####[facility] LABCLIA [id number] [place] [address] [place] Reagin+T pallidum IgG+IgM Se rPl-Impon 06-13-2024 Reagin and Treponema pallidum IgG and IgM [Interp] Cannot exclude recent Treponemal infection if specimen collected within 7-10 days after appearance of suspect lesions or 2-3 weeks after an exposure. Clinical correlation is required. Normal [facility] Comment on above: Order Comment: Speci men Type: BLOOD SPECIMENOrdering Facility: [facility] Address: [address] [place] [address] Performed By: #### 7 3752-8 ####[facility] LABCLIA [id number] [address] [place] TYPE + SCREEN PRENATALon ABO O Normal [facility] Comment on above: Order Comment: Speci men Type: BLOOD SPECIMENOrdering Facility: [facility] Address: [address] [place] [address] Performed By: #### T SPN ####[facility] MA[facility] BLOOD BANKCLIA [id number] [place] [address] [place] Rh Nom (Bld) Negative Normal [facility] Comment on above: Order Comment: Speci men Type: BLOOD SPECIMENOrdering Facility: [facility] Address: [address] [place] [address] Performed By: #### T SPN ####[facility] MAIN BLOOD BANKCLIA [id number] [place] [address] [place] TYPE AND SCREEN EXPIRATION 06/16/2024 23:59 Normal [facility] Comment on above: Order Comment: Speci men Type: BLOOD SPECIMENOrdering Facility: [facility] Address: [address] [place] [address] Performed By: #### T SPN ####[facility] MAIN BLOOD BANKCLIA [id number] [place] [address] [place] CNPNon 06-10-2024 CNPN Telephone (4CQ) STEWART ZUNIGA ([id number]) 4 F Date Time Provider Department 06/10/24 AMILCAR MÉNDEZ 4CQ During your visit today, we [...] 1 capsule by mouth once daily. - [id number] acid ( 19) 29 mg iron- 1 [...] in second trimester (*06/04/2024 Encounter Status:Closed by SHARON YUSUF on 06/10/24 [facility] Telephone (OBGYWM) STEWART ZUNIGA ([id number]) 4 F Date Time Provider Department 06/10/24 KAHLIL ESCOBAR OBGYWM During your visit today, we [...] pain is not relieved please notify office. Sharon Yusuf RN 06/10/2024 9:06 AM Signed Left message for patient to check [employer] message or call office. Sharon Yusuf RN Allergies As of Date: 06/10/2024 Noted Allergy Reaction ADHESIVE 10/23/2023 4 - Hives LACTOSE 10/23/2023 8 - GI Upset Date Reviewed: 06/04/2024 Reviewed by: Manas Vogel MA - Fully Assessed Reason for Visit: OB back pain [Other] Prescriptions as of 06/10/2024 - omeprazole (PRILOSEC) 10 mg capsule Take 1 capsule by mouth once daily. - [id number] acid ( 19) 29 mg iron- 1 [...] Status:Closed by GEORGIA WREN on 06/10/24 Normal [facility] Sheila 2024 CNPN Telephone (OBGYWM) STEWART ZUNIAG ([id number]) 4 F Date Time Provider Department 04/24/24 AMBREEN ROMERO During your visit today, we recorded the following information about you: Sharon Yusuf RN 2024 11:49 AM Signed 21w6d Patient's mother calling for her. She has GI virus with vomiting and diarrhea for over 24 hours. Mother talked to provider decision science analyst early this morning and gave 2 imodium [...] 2024 12:44 PM Signed Patient's mother notified. Sharon Yusuf RN Allergies As of Date: 2024 [...] in antepartum period [O26.899*03/18/2024 Encounter Status:Closed by SHARON YUSUF on 04/24/24 Normal [facility] Examination level ultrasound on 04-14-2024 Indication [...] 13 oz EFW by: Hadlock (HC-AC-FL) Extended Stock Order Lister 6.6 mm CM 3.3 mm 5% Nicolaides [...] normal LVOT view: normal 3-vessel view: normal 6-rihqyc-agtggzu view: normal Heart / Thorax Situs: situs [...] Not visualized Lt ovary: Visualized Performed By: Mathew Lopez RDMS, RVT Read By: Marlene Prakash M.D. MATERNAL MEDICINE [facility] Radiology Study observation (narrative) Adriana irby [facility] CNCOon 03-31-2024 CNCO Letter Text Normal [facility] CNOVon 03-28-2024 CNOV Office Visit (CARDMN) STEWART ZUNIGA ([id number]) 4 F Date Time Provider Department 03/28/24 9:15 AM JAY BYRD CARDROBBIN During your visit today, we recorded the following information about you: Pulse Blood pressure Weight Height 79/minute 114/71 60.3 kg 1.562 m Jay Byrd MD 03/28/2024 10:26 AM Signed [facility] [place] Taya Castellanos Department of Cardiovascular Medicine SECTION OF CARDIAC PACING and ELECTROPHYSIOLOGY OUTPATIENT VISIT DATE March 28, 2024 OUTPATIENT VISIT TYPE ESTABLISHED PRIMARY CARE PHYSICIAN: Kayleen Mckay MD [address] [place] [id number] CHIEF COMPLAINT: Follow-up for tachycardia and syncope [...] in office 12/24/2023. She was given a [employer] monitor and mailed it back but monitor was never received by [employer] (confirmed with company). Echo 12/24/2023 showed EF=63% [...] visit a (more content not included)... Normal [facility] ECG COMPLETEon 03-28-2024 ECG COMPLETE Ventricular Rate : 72 BPM Atrial Rate : 72 BPM P-R Interval : 130 ms QRS Duration : 84 ms Q-T Interval : 368 ms QTC Calculation(Bazett) : 402 ms Calculated P [place] : 21 degrees Calculated R [place] : 64 degrees Calculated T [place] : 48 degrees NORMAL SINUS RHYTHM NORMAL ECG Confirmed by ALISTAIR MARTINEZ MD ([id number]) on 04/15/2024 9:35:54 AM NAME : STEWART ZUNIGA PID : [id number] : 2000 Gender : Female Race : ORD : [id number] Procedure Date : Mar 28 2024 08:33:06 Edit Date : Apr 15 2024 09:35:55 Diagnosis: NORMAL SINUS RHYTHM NORMAL ECG Confirmed by ALISTAIR MARTINEZ MD ([id number]) on 04/15/2024 9:35:54 AM Test Reason : Location : 314 : 14 Overread By : ALISTAIR MARTINEZ MD Edited By : ALISTAIR MARTINEZ MD Referred By : JAY BYRD Acquired by : MEGAN WARREN [facility] 12 Lead EKGon 03-24-2024 12 Lead EKG [facility] [address] [place] [address] 12 Lead EKG 03/24/24 1830 MR#: [id number] Acct: [id number] Name: STEWART ZUNIGA Rep #: [id number] : 2000 23 From: Cailin Joy MD [...] T wave abnormality Abnormal ECG Confirmed by RUFINO SANTIAGO, JOSE M ([id number]), editor farm journal AGUSTIN MCCLURE ([id number]) on 03/31/2024 2:24:00 PM Referred By: Confirmed By: JOSE M JOY MD 03/31/24 1424 Date Cailin Joy MD CC: Dr. Len Haile, DO; No Primary Care Physician Signed Normal [facility] Absolute lymphocyte countOrd ered By: Len Haile on 03-24-2024 Lymphocytes Auto (Unsp spec) [#/Vol] 2.49 10*3/uL 0.83-4.51 [facility] Absolute neutrophil countOrd ered By: Len Haile on 03-24-2024 Neutrophils (Bld) [#/Vol] 11.5 10*3/uL High 2.0-7.7 [facility] Albumin to globulin ratioOrd ered By: Len Haile on 03-24-2024 Albumin/Globulin [Mass ratio] 1.0 {ratio} 0.9-2.4 [facility] Automated lymphocyte count a s percentage of total leukocytesOrdered By: Len Haile on 03-24-2024 Lymphocytes/100 WBC Auto (Unsp spec) 16.4 % Low 19-41 [facility] Basophil percentageOrdered B y: Len Haile on 03-24-2024 Basophils/100 WBC (Bld) 0.2 % 0-1 [facility] Bilirubin, totalOrdered By: Len Haile on 03-24-2024 Bilirubin [Mass/Vol] 0.40 mg/dL 0.20-1.00 [facility] Comment on above: For patients on eltr ombopag therapy, use of Dimension Hiko TBIL is not recommended. Blood urea nitrogen (BUN)/cr eatinine ratioOrdered By: Len Haile on 03-24-2024 Urea nitrogen/Creatinine [Mass ratio] 7.2 mg/mg Low 10-20 [facility] CBC W/Diff, Automatedon 03-06 Absolute Lymph 2.49 X10 3/uL Normal 0.83-4.51 [facility] Comment on above: Performed By: #### L 501.4021 #### [facility] Laboratory [facility] [place], [address] Absolute Neut 11.5 X10 3/uL High 2.0-7.7 [facility] Comment on above: Performed By: #### L 501.4021 #### [facility] Laboratory [address] [place], [address] Basophils/100 WBC (Bld) 0.2 % Normal 0-1 [facility] Comment on above: Performed By: #### L 501.4021 #### [facility] [address] [place], [address] Eosinophils/100 WBC (Bld) 2.6 % Normal 0-5 [facility] Comment on above: Performed By: #### L [id number] #### [facility] Laboratory [address] [place], [address] Erythrocyte distribution width (RBC) [Ratio] 13.3 % Normal 11.6-14.6 [facility] Comment on above: Performed By: #### L 501.4021 #### [facility] [address] [place], [address] Hematocrit (Bld) [Volume fraction] 39.2 % Normal 37-47 [facility] Comment on above: Performed By: #### L 501.4021 #### [facility] [address] [place], [address] Hemoglobin (Bld) [Mass/Vol] 13.5 g/dL Normal 12.0-15.0 [facility] Comment on above: Performed By: #### L 501.4021 #### [facility] [address] [place], [address] IG% 0.300 Normal 0.0-0.9 [facility] Comment on above: Result Comment: IG% - Immature Granulocytes (promyelocytes, myelocytes and metamyelocytes) > 1% indicates that a LEFT SHIFT is Present. Performed By: #### L 501.4021 #### [facility] [address] [place], [address] Lymphocytes/100 WBC (Bld) 16.4 % Low 19-41 [facility] Comment on above: Performed By: #### L [id number] #### [facility] [address] [place], [address] MCH (RBC) [Entitic mass] 29.9 pg Normal 27.0-32.0 [facility] Comment on above: Performed By: #### L [id number] #### [facility] [address] [place], [address] MCHC (RBC) [Mass/Vol] 34.4 g/dL Normal 32-36 [facility] Comment on above: Performed By: #### L [id number] #### [facility] [address] [place], [address] MCV (RBC) [Entitic vol] 86.9 fL Normal 81-99 [facility] Comment on above: Performed By: #### L [id number] #### [facility] [address] [place], [address] Monocytes/100 WBC (Bld) 4.7 % Normal 0-10 [facility] Comment on above: Performed By: #### L [id number] #### [facility] [address] [place], [address] Neutrophils/100 WBC (Bld) 75.8 % High 47-70 [facility] Comment on above: Performed By: #### L 501.4021 #### [facility] [address] [place], [address] Nucleated RBC (Bld) [#/Vol] 0 10*3/uL Normal 0-5 [facility] Comment on above: Performed By: #### L 501.4021 #### [facility] [address] [place], [address] Platelet mean volume (Bld) [Entitic vol] 9.5 fL Normal 6.2-12.0 [facility] Comment on above: Performed By: #### L 501.4021 #### [facility] [address] [place], [address] Platelets (Bld) [#/Vol] 309 10*3/uL Normal 150-450 [facility] Comment on above: Performed By: #### L 501.4021 #### [facility] [address] [place], [address] RBC (Bld) [#/Vol] 4.51 10*6/uL Normal 4.2-5.4 [facility] Comment on above: Performed By: #### L 501.4021 #### [facility] [address] [place], [address] RDW SD 42.0 fl Normal 35.1-43.9 [facility] Comment on above: Performed By: #### L [id number] #### [facility] [address] [place], [address] WBC (Bld) [#/Vol] 15.2 10*3/uL High 4.4-11.0 [facility] Comment on above: Performed By: #### L 501.4021 #### [facility] [address] [place], [address] Carbon dioxide measurementOr dered By: Len Haile on 03-24-2024 CO2 [Moles/Vol] 22.0 mmol/L 21.0-32.0 [facility] Chloride measurementOrdered By: Len Haile on 03-24-2024 Chloride [Moles/Vol] 109 mmol/L High 98-107 [facility] Comprehensive Metabolic Prof ilon 03-24-2024 Albumin [Mass/Vol] 3.4 g/dL Normal 3.2-5.0 [facility] Comment on above: Performed By: #### L 501.4021 #### [facility] [address] [place], [address] Albumin/Globulin [Mass ratio] 1.0 {ratio} Normal 0.9-2.4 [facility] Comment on above: Performed By: #### L [id number] #### [facility] [address] [place], [address] ALK P 59 U/L Normal 45-117 [facility] Comment on above: Performed By: #### L 501.4021 #### [facility] [address] [place], [address] ALT [Catalytic activity/Vol] 21 U/L Normal 13-56 [facility] Comment on above: Performed By: #### L [id number] #### [facility] [address] [place], [address] AST [Catalytic activity/Vol] 14 U/L Low 15-37 [facility] Comment on above: Performed By: #### L 501.4021 #### [facility] [address] [place], [address] Bilirubin [Mass/Vol] 0.40 mg/dL Normal 0.20-1.00 [facility] Comment on above: Result Comment: For patients on eltrombopag therapy, use of Dimension Hiko TBIL is not recommended. Performed By: #### L 501.4021 #### [facility] [address] [place], [address] BUN/CRE 7.2 RATIO Low 10-20 [facility] Comment on above: Performed By: #### L 501.4021 #### [facility] [address] [place], [address] CA,Total 9.2 mg/dL Normal 8.5-10.1 [facility] Comment on above: Performed By: #### L 501.4021 #### [facility] [address] [place], [address] Chloride [Moles/Vol] 109 mmol/L High 98-107 [facility] Comment on above: Performed By: #### L [id number] #### [facility] [address] [place], [address] CO2 [Moles/Vol] 22.0 mmol/L Normal 21.0-32.0 [facility] Comment on above: Performed By: #### L 501.4021 #### [facility] [address] [place], [address] Creatinine [Mass/Vol] 0.55 mg/dL Normal 0.55-1.02 [facility] Comment on above: Result Comment: The validity of the calculated GFR GFRAA in patients over 70 years has not been determined. Clinical correlation is essential. Performed By: #### L 501.4021 #### [facility] [address] [place], [address] ECRCL 136.75 ml/min Normal [facility] Comment on above: Performed By: #### L 501.4021 #### [facility] [address] [place], [address] EST GFR - AA 177 mL/min Normal >60 [facility] Comment on above: Result Comment: Afri can Bhutanese GFR Calc Performed By: #### L 501.4021 #### [facility] [address] [place], [address] GAP 8 Normal 5-15 [facility] Comment on above: Performed By: #### L 501.4021 #### [facility] [address] [place], [address] GFR/1.73 sq M.predicted among non-blacks MDRD (S/P/Bld) [Vol rate/Area] 146 mL/min/{1.73_m2} Normal >60 [facility] Comment on above: Result Comment: Non- GFR Calc Performed By: #### L 501.4021 #### [facility] [address] [place], [address] Globulin (S) [Mass/Vol] 3.4 g/dL Normal 2.2-4.2 [facility] Comment on above: Performed By: #### L 501.4021 #### [facility] [address] [place], [address] Glucose [Mass/Vol] 98 mg/dL Normal 74-106 [facility] Comment on above: Performed By: #### L 501.4021 #### [facility] [address] [place], [address] Potassium [Moles/Vol] 3.2 mmol/L Low 3.5-5.1 [facility] Comment on above: Performed By: #### L 501.4021 #### [facility] [address] [place], [address] Sodium [Moles/Vol] 139 mmol/L Normal 136-145 [facility] Comment on above: Performed By: #### L 501.4021 #### [facility] [address] [place], [address] T PROT 6.8 g/dL Normal 6.4-8.2 [facility] Comment on above: Performed By: #### L [id number] #### [facility] [address] [place], [address] Urea nitrogen [Mass/Vol] 4 mg/dL Low 7-18 [facility] Comment on above: Performed By: #### L 501.4021 #### [facility] [address] [place], [address] Emergency Department Summary on 03-24-2024 Emergency Department Summary [facility] Medical Records Department [address] [place] [address] Emergency Department Summary 03/24/24 MR#: [id number] Acct: [id number] Name: STEWART ZUNIGA Rep #: [id number] : 2000 23 From: Len Haile DO PCP: Care Physician,No Primary Status:REG ER Location: ED HPI History of Present Illness Chief Complaint: Nausea/Vomiting/Diar nereida [facility] Medical History Physical exam, pre-employment Palpitations Chest [...] History obtained from others: none Consults: none [facility] Narrative: Patient was initially tachycardic rate of 122, otherwise afebrile and nontoxic-appearing. Exam with benign abdomen. No peritoneal signs. Gravid uterus. No significant tenderness noted. I considered the following differential diagnosis: loss, dehydration, viral gastroenteritis, electrolyte disturbances, UTI I obtained a broad lab and imaging workup to further elucidate etiology of patient complaints. I gave patient IV fluids (more content not included)... Normal [facility] Eosinophil percentageOrdered By: Len Haile on 03-24-2024 Eosinophils/100 WBC (Bld) 2.6 % 0-5 [facility] Erythrocyte distribution wid th (RBC) [Ratio]Ordered By: Len Haile on 03-24-2024 Erythrocyte distribution width (RBC) [Entitic vol] 42.0 fL 35.1-43.9 [facility] Erythrocyte distribution wid th ratioOrdered By: Len Haile on 03-24-2024 Erythrocyte distribution width (RBC) [Ratio] 13.3 % 11.6-14.6 [facility] Erythrocyte distribution wid th standard deviationOrdered By: Len Haile on 03-24-2024 Erythrocyte distribution width (RBC) [Ratio] 42.0 fl 35.1-43.9 [facility] Estimated glomerular filtrat ion rate (GFR) AmericanOrdered By: Len Haile on 03-24-2024 Estimated GFR (MDRD) Amer 177 mL/min >60 [facility] Comment on above: GFR Calc Estimation of creatinine yaniv aranceOrdered By: Len Haile on 03-24-2024 Estimated Creatinine Clearance Calc 136.75 ml/min [facility] Glomerular filtration rate ( GFR) estimationOrdered By: Len Haile on 03-24-2024 Estimated GFR (MDRD) Non-Af Amer 146 mL/min >60 [facility] Comment on above: Non- GFR Calc GFR/1.73 sq M.predicted among non-blacks MDRD (S/P/Bld) [Vol rate/Area] 146 mL/min/{1.73_m2} >60 [facility] Comment on above: Non- GFR Calc Glucose measurementOrdered B y: Len Haile on 03-24-2024 Glucose [Mass/Vol] 98 mg/dL 74-106 [facility] Hematocrit Auto (Bld) [Volum e fraction]Ordered By: Len Haile on 03-24-2024 Hematocrit (Bld) [Volume fraction] 39.2 % 37-47 [facility] Hemoglobin measurementOrdere d By: Len Haile on 03-24-2024 Hemoglobin (Bld) [Mass/Vol] 13.5 g/dL 12.0-15.0 [facility] Immature granulocytes/100 WB C Auto (Bld)Ordered By: Len Haile on 03-24-2024 Immature granulocytes/100 WBC (Bld) 0.300 % 0.0-0.9 [facility] Comment on above: IG% - Immature Granu locytes (promyelocytes, myelocytes and metamyelocytes) > 1% indicates that a LEFT SHIFT is Present. Laboratory - Chemistry and C hemistry - challengeOrdered By: Len Haile on 03-24-2024 AST [Catalytic activity/Vol] 14 U/L Low 15-37 [facility] Lipaseon 03-24-2024 Lipase [Catalytic activity/Vol] 19 U/L Normal 13-75 [facility] Comment on above: Result Comment: Bacilio casarez note: LIPASE revised reference range effective 22. New Lipase methodology. Expected to produce lower values than the previous assay method. NEW Reference Range: 13 - 75 U/L Performed By: #### L 501.4021 #### [facility] [address] [place], [place] [address], [address] Lipase measurementOrdered By : Len Haile on 03-24-2024 Lipase [Catalytic activity/Vol] 19 U/L 13-75 [facility] Comment on above: Please note:LIPASE r evised reference range effective 22. New Lipase methodology. Expected to produce lower values than the previous assay method. NEW Reference Range: 13 - 75 U/L Lymphocytes Auto (Unsp spec) [#/Vol]Ordered By: Len Haile on 03-24-2024 Lymphocytes (Bld) [#/Vol] 2.49 10*3/uL 0.83-4.51 [facility] Lymphocytes/100 WBC Auto (Un sp spec)Ordered By: Len Haile on 03-24-2024 Lymphocytes/100 WBC (Bld) 16.4 % Low 19-41 [facility] MCV (mean corpuscular volume ) determinationOrdered By: Len Haile on 03-24-2024 MCV (RBC) [Entitic vol] 86.9 fL 81-99 [facility] Mean corpuscular hemoglobin (MCH) determinationOrdered By: Len Haile on 03-24-2024 MCH (RBC) [Entitic mass] 29.9 pg 27.0-32.0 [facility] Mean corpuscular hemoglobin concentration (MCHC) determinationOrdered By: Len Haile on 03-24-2024 MCHC (RBC) [Mass/Vol] 34.4 g/dL 32-36 [facility] Mean platelet volume determi nationOrdered By: Len Haile on 03-24-2024 Platelet mean volume (Bld) [Entitic vol] 9.5 fL 6.2-12.0 [facility] Monocyte percentageOrdered B y: Len Haile on 03-24-2024 Monocytes/100 WBC (Bld) 4.7 % 0-10 [facility] Neutrophil percentageOrdered By: Len Haile on 03-24-2024 Neutrophils/100 WBC (Bld) 75.8 % High 47-70 [facility] Nucleated red blood cell per centageOrdered By: Len Haile on 03-24-2024 Nucleated RBC/100 WBC (Bld) [Ratio] 0 % 0-5 [facility] Platelet countOrdered By: Paul Haile on 03-24-2024 Platelets (Bld) [#/Vol] 309 10*3/uL 150-450 [facility] Potassium measurementOrdered By: Len Haile on 03-24-2024 Potassium [Moles/Vol] 3.2 mmol/L Low 3.5-5.1 [facility] RBC Auto (Bld) [#/Vol]Ordere d By: Len Haile on 03-24-2024 RBC (Bld) [#/Vol] 4.51 10*6/uL 4.2-5.4 [facility] Serum anion gap measurementO rdered By: Len Haile on 03-24-2024 Anion gap [Moles/Vol] 8 mmol/L 5-15 [facility] Serum globulin measurementOr dered By: Len Haile on 03-24-2024 Globulin (S) [Mass/Vol] 3.4 g/dL 2.2-4.2 [facility] Serum or plasma alanine bobo otransferase (ALT) measurementOrdered By: Len Haile on 03-24-2024 ALT [Catalytic activity/Vol] 21 U/L 13-56 [facility] Serum or plasma albumin noa urement (mass/volume)Ordered By: Len Haile on 03-24-2024 Albumin [Mass/Vol] 3.4 g/dL 3.2-5.0 [facility] Serum or plasma alkaline nancy sphatase measurementOrdered By: Len Haile on 03-24-2024 ALP [Catalytic activity/Vol] 59 U/L 45-117 [facility] Serum or plasma calcium noa urement (mass/volume)Ordered By: Len Haile on 03-24-2024 Calcium [Mass/Vol] 9.2 mg/dL 8.5-10.1 [facility] Serum or plasma creatinine m easurement (mass/volume)Ordered By: Len Haile on 03-24-2024 Creatinine [Mass/Vol] 0.55 mg/dL 0.55-1.02 [facility] Comment on above: The validity of the calculated GFR & GFRAA in patients over 70 years has not been determined. Clinical correlation is essential. Serum or plasma urea nitroge n measurement (mass/volume)Ordered By: Len Haile on 03-24-2024 Urea nitrogen [Mass/Vol] 4 mg/dL Low 7-18 [facility] Sodium levelOrdered By: Carlos Eduardo Haile on 03-24-2024 Sodium [Moles/Vol] 139 mmol/L 136-145 [facility] Total proteinOrdered By: Madeline Haile on 03-24-2024 Protein [Mass/Vol] 6.8 g/dL 6.4-8.2 [facility] Urinalysis, Completeon 03-24 BACTERIA Normal None Seen [facility] Comment on above: Order Comment: CLEAN CATCH Result Comment: Canc elled via OM: Pt refuses the test Performed By: #### L 501.4021 #### [facility] [address] [place], [address] BILIRUBIN URINE Normal Negative [facility] Comment on above: Order Comment: CLEAN CATCH Result Comment: Canc elled via OM: Pt refuses the test Performed By: #### L 501.4021 #### [facility] [address] [place], [address] Clarity (U) Normal Clear [facility] Comment on above: Order Comment: CLEAN CATCH Result Comment: Canc elled via OM: Pt refuses the test Performed By: #### L 501.4021 #### [facility] [address] [place], [address] Color (U) Normal Yellow [facility] Comment on above: Order Comment: CLEAN CATCH Result Comment: Canc elled via OM: Pt refuses the test Performed By: #### L 501.4021 #### [facility] [address] [place], [address] EPI,SQUAMOUS Normal 5-10 [facility] Comment on above: Order Comment: CLEAN CATCH Result Comment: Canc elled via OM: Pt refuses the test Performed By: #### L 501.4021 #### [facility] [address] [place], [address] GLUCOSE, UR Normal Normal [facility] Comment on above: Order Comment: CLEAN CATCH Result Comment: Canc elled via OM: Pt refuses the test Performed By: #### L 501.4021 #### [facility] [address] [place], [address] KETONE UR Normal Negative [facility] Comment on above: Order Comment: CLEAN CATCH Result Comment: Canc elled via OM: Pt refuses the test Performed By: #### L 501.4021 #### [facility] [address] [place], [address] LEUK ESTERASE Normal Negative [facility] Comment on above: Order Comment: CLEAN CATCH Result Comment: Canc elled via OM: Pt refuses the test Performed By: #### L 501.4021 #### [facility] [address] [place], [address] Mucus Ql (Urine sed) Normal [facility] Comment on above: Order Comment: CLEAN CATCH Result Comment: Canc elled via OM: Pt refuses the test Performed By: #### L 501.4021 #### [facility] [address] [place], [address] Nitrite Ql (U) Normal Negative [facility] Comment on above: Order Comment: CLEAN CATCH Result Comment: Canc elled via OM: Pt refuses the test Performed By: #### L 501.4021 #### [facility] [address] [place], [address] OCCULT BLOOD-UR Normal Negative [facility] Comment on above: Order Comment: CLEAN CATCH Result Comment: Canc elled via OM: Pt refuses the test Performed By: #### L 501.4021 #### [facility] [address] [place], [address] pH UR Normal 5.0 - 8.0 [facility] Comment on above: Order Comment: CLEAN CATCH Result Comment: Canc elled via OM: Pt refuses the test Performed By: #### L 501.4021 #### [facility] [address] [place], [address] PROT DIPSTX Normal Negative [facility] Comment on above: Order Comment: CLEAN CATCH Result Comment: Canc elled via OM: Pt refuses the test Performed By: #### L 501.4021 #### [facility] [address] [place], [address] RBC Normal 0-5 [facility] Comment on above: Order Comment: CLEAN CATCH Result Comment: Canc elled via OM: Pt refuses the test Performed By: #### L 501.4021 #### [facility] [address] [place], [address] SP.GR. DIPSTX Normal 1.002-1.030 [facility] Comment on above: Order Comment: CLEAN CATCH Result Comment: Canc elled via OM: Pt refuses the test Performed By: #### L 501.4021 #### [facility] [address] [place], [address] UR Preservative Normal [facility] Comment on above: Order Comment: CLEAN CATCH Result Comment: Canc elled via OM: Pt refuses the test Performed By: #### L 501.4021 #### [facility] [address] [place], [address] UROBILI Normal Normal [facility] Comment on above: Order Comment: CLEAN CATCH Result Comment: Canc elled via OM: Pt refuses the test Performed By: #### L 501.4021 #### [facility] [address] [place], [address] WBC Normal 0-5 [facility] Comment on above: Order Comment: CLEAN CATCH Result Comment: Canc elled via OM: Pt refuses the test Performed By: #### L 501.4021 #### [facility] [address] [place], [address] White blood cell (WBC) count Ordered By: Len Haile on 03-24-2024 WBC (Bld) [#/Vol] 15.2 10*3/uL High 4.4-11.0 [facility] CNOVon 03-18-2024 CNOV Office Visit ([facility]) STEWART ZUNIGA ([id number]) [birth year] F Date Time Provider Department 03/18/24 1:30 PM GELNDY CARDONA [facility] During your visit today, we recorded the following information about you: Temperature Pulse Respiration Blood pressure 98.3 degrees 84/minute 18/minute 121/83 Weight 63.5 kg Glendy Cardona APRN.PREPARED [employer]ODS SUPERVISOR 03/18/2024 2:14 PM Signed This note was created using Litbloc. Subjective Stewart Zuniga is a 23 year old female. HPI by patient: Stewart is a 23 year old presenting to [...] - Wrapped in Jorge wrap after xray Glendy Cardona APRN.CNP Medical Decision Making: Problems: Moderate: [...] [S89.91XA] Order(s):XR KNEE LIMITED 2V AP/LAT RIGHT [[id number]] Order #: [id number] FUTURE CONSULT TO ORTHOPAEDICS [9031] Order #: [id number]: 1 FUTURE Prescriptions as of 03/18/2024 - [...] Service: OFFICE/OUTPATIENT ESTABLISHED MOD MDM 30 MIN [15863] Encounter Status:Closed by GLENDY CARDONA on 03/18/24 Normal [facility] XR KNEE 2V AP/LAT RTon 03-18 [...] are maintained. IMPRESSION: No acute osseous abnormality. Rotor Coil Taper: KENYA Transcribe Date/Time: Mar 18 2024 2:03P Dictated by : NAJMA MCDONOUGH DO This examination was interpreted and the report reviewed and electronically signed by: NAJMA MCDONOUGH DO on Mar 18 2024 2:04PM EST [id number] CN Normal [facility] XR Knee - right AP and Later essence 03-18-2024 IMPRESSION: No acute osseous abnormality. Rotor Coil Taper: KENYA Transcribe Date/Time: Mar 18 2024 2:03P [...] spaces are maintained. DIVISION OF RADIOLOGY Provider, [facility] [place] - 03/18/2024 * * *Final Report* * [...] maintained. IMPRESSION IMPRESSION: No acute osseous abnormality. Rotor Coil Taper: KENYA Transcribe Date/Time: Mar 18 2024 2:03P Dictated by : NAJMA MCDONOUGH DO This examination was interpreted and the report reviewed and electronically signed by: NAJMA MCDONOUGH DO on Mar 18 2024 2:04PM [facility] Radiology Study observation (narrative) [facility] XR Knee - right AP and Later alOrdered By: [facility] Provider on 03-18-2024 [facility] TYPE + SCREEN PRENATALon ABO O Normal [facility] Comment on above: Order Comment: Speci men Type: BLOOD SPECIMENOrdering Facility: [facility] Address: [address] [place] [address] Performed By: #### T SPN ####CC MAIN BLOOD BANKCLIA [id number] [place] [address] [place] Rh Nom (Bld) Negative Normal [facility] Comment on above: Order Comment: Speci men Type: BLOOD SPECIMENOrdering Facility: [facility] Address: [address] [place] [address] Performed By: #### T SPN ####CC MAIN BLOOD BANKCLIA [id number] [place] [address] [place] TYPE AND SCREEN EXPIRATION 03/20/2024 23:59 Normal [facility] Comment on above: Order Comment: Speci men Type: BLOOD SPECIMENOrdering Facility: [facility] Address: [address] [place] [address] Performed By: #### T SPN ####CC MAIN BLOOD BANKCLIA [id number] [facility] [id number] [id number] [place] CBC W Auto Differential pane l (Bld)on 02-18-2024 Basophils (Bld) [#/Vol] 0.03 10*3/uL Normal <0.11 [facility] Comment on above: Order Comment: Speci men Type: BLOOD SPECIMENOrdering Facility: [facility] Address: [address] [place] [address] Performed By: #### 5 7021-8 ####[facility]ITAL[facility] [id number] [place] [address] [place] Basophils/100 WBC (Bld) 0.3 % Normal C [facility] Comment on above: Order Comment: Speci men Type: BLOOD SPECIMENOrdering Facility: [facility] Address: [address] [place] [address] Performed By: #### 5 7021-8 ####[facility] [id number] [place] [address] [place] Differential cell count method Nom (Bld) Auto Normal [facility] Comment on above: Order Comment: Speci men Type: BLOOD SPECIMENOrdering Facility: [facility] Address: [address] [place] [address] Performed By: #### 5 7021-8 ####[facility]PITALLIA [id number] [place] [address] [place] Eosinophils (Bld) [#/Vol] 0.45 10*3/uL Normal <0.46 [facility] Comment on above: Order Comment: Speci men Type: BLOOD SPECIMENOrdering Facility: [facility] Address: [address] [place] [address] Performed By: #### 5 7021-8 ####[facility] MILLSADEWNCLIA [id number] [place] [address] [place] Eosinophils/100 WBC (Bld) 4.1 % Normal [facility] Comment on above: Order Comment: Speci men Type: BLOOD SPECIMENOrdering Facility: [facility] Address: [address] [place] [address] Performed By: #### 5 7021-8 ####[facility] CENTERBJORNLIA [id number] [place] [address] [place] Erythrocyte distribution width (RBC) [Ratio] 12.9 % Normal 11.5-15.0 [facility] Comment on above: Order Comment: Speci men Type: BLOOD SPECIMENOrdering Facility: [facility] Address: [address] [place] [address] Performed By: #### 5 7021-8 ####[facility] CENTERANDREAS [id number] [place] [address] [place] Hematocrit (Bld) [Volume fraction] 41.2 % Normal 36.0-46.0 [facility] Comment on above: Order Comment: Speci men Type: BLOOD SPECIMENOrdering Facility: [facility] Address: [address] [place] [address] Performed By: #### 5 7021-8 ####[facility] CENTERANDREAS [id number] [place] [address] [place] Hemoglobin (Bld) [Mass/Vol] 14.4 g/dL Normal 11.5-15.5 [facility] Comment on above: Order Comment: Speci men Type: BLOOD SPECIMENOrdering Facility: [facility] Address: [address] [place] [address] Performed By: #### 5 7021-8 ####[facility] CENTERNCLIA [id number] [place] [address] [place] Immature granulocytes (Bld) [#/Vol] 0.03 10*3/uL Normal <0.10 [facility] Comment on above: Order Comment: Speci men Type: BLOOD SPECIMENOrdering Facility: [facility] Address: [address] [place] [address] Performed By: #### 5 7021-8 ####[facility] CENTERNCSTEWARD HE[facility] [id number] [place] [address] [place] Immature granulocytes/100 WBC (Bld) 0.3 % Normal [facility] Comment on above: Order Comment: Speci men Type: BLOOD SPECIMENOrdering Facility: [facility] Address: [address] [place] [address] Performed By: #### 5 7021-8 ####[facility] CENTERNCLI [id number] [place] [address] [place] Lymphocytes (Bld) [#/Vol] 2.91 10*3/uL Normal 1.00-4.00 [facility] Comment on above: Order Comment: Speci men Type: BLOOD SPECIMENOrdering Facility: [facility] Address: [address] [place] [address] Performed By: #### 5 7021-8 ####[facility] [id number] [place] [address] [place] Lymphocytes/100 WBC (Bld) 26.6 % Normal [facility] Comment on above: Order Comment: Speci men Type: BLOOD SPECIMENOrdering Facility: [facility] Address: [address] [place] [address] Performed By: #### 5 7021-8 ####[facility] CENTERNCLIA [id number] [place] [address] [place] MCH (RBC) [Entitic mass] 30.0 pg Normal 26.0-34.0 [facility] Comment on above: Order Comment: Speci men Type: BLOOD SPECIMENOrdering Facility: [facility] Address: [address] [place] [address] Performed By: #### 5 7021-8 ####[facility] SUDHA [id number] [place] [address] [place] MCHC (RBC) [Mass/Vol] 35.0 g/dL Normal 30.5-36.0 [facility] Comment on above: Order Comment: Speci men Type: BLOOD SPECIMENOrdering Facility: [facility] Address: [address] [place] [address] Performed By: #### 5 7021-8 ####[facility] TRACILIMAVILLEANDREAS [id number] [place] [address] [place] MCV (RBC) [Entitic vol] 85.8 fL Normal 80.0-100.0 C [facility] Comment on above: Order Comment: Speci men Type: BLOOD SPECIMENOrdering Facility: [facility] Address: [address] [place] [address] Performed By: #### 5 7021-8 ####[facility] CENTERANDREAS [id number] [place] [address] [place] Monocytes (Bld) [#/Vol] 0.67 10*3/uL Normal <0.87 [facility] Comment on above: Order Comment: Speci men Type: BLOOD SPECIMENOrdering Facility: [facility] Address: [address] [place] [address] Performed By: #### 5 7021-8 ####[facility] CENTERANDREAS [id number] [place] [address] [place] Monocytes/100 WBC (Bld) 6.1 % Normal C [facility] Comment on above: Order Comment: Speci men Type: BLOOD SPECIMENOrdering Facility: [facility] Address: [address] [place] [address] Performed By: #### 5 7021-8 ####[facility] MILLWNCLIA [id number] [place] [address] [place] Neutrophils (Bld) [#/Vol] 6.83 10*3/uL Normal 1.45-7.50 [facility] Comment on above: Order Comment: Speci men Type: BLOOD SPECIMENOrdering Facility: [facility] Address: [address] [place] [address] Performed By: #### 5 7021-8 ####[facility]OSPITALLIA [id number] [place] [address] [place] Neutrophils/100 WBC (Bld) 62.6 % Normal [facility] Comment on above: Order Comment: Speci men Type: BLOOD SPECIMENOrdering Facility: [facility] Address: [address] [place] [address] Performed By: #### 5 7021-8 ####[facility]ALLIA [id number] [place] [address] [place] Nucleated RBC (Bld) [#/Vol] 10*3/uL Normal <0.01 [facility] Comment on above: Order Comment: Speci men Type: BLOOD SPECIMENOrdering Facility: [facility] Address: [address] [place] [address] Performed By: #### 5 7021-8 ####[facility]ALL[facility] [id number] [place] [address] [place] Nucleated RBC/100 WBC (Bld) [Ratio] 0.0 /100 WBC Normal [facility] Comment on above: Order Comment: Speci men Type: BLOOD SPECIMENOrdering Facility: [facility] Address: [address] [place] [address] Performed By: #### 5 7021-8 ####[facility] CENTERNCLIA [id number] [place] [address] [place] Platelet mean volume (Bld) [Entitic vol] 9.7 fL Normal 9.0-12.7 [facility] Comment on above: Order Comment: Speci men Type: BLOOD SPECIMENOrdering Facility: [facility] Address: [address] [place] [address] Performed By: #### 5 7021-8 ####[facility] CENTERNCLIA [id number] [place] [address] [place] Platelets (Bld) [#/Vol] 320 10*3/uL Normal 150-400 [facility] Comment on above: Order Comment: Speci men Type: BLOOD SPECIMENOrdering Facility: [facility] Address: [address] [place] [address] Performed By: #### 5 7021-8 ####[facility] CENTERNCA [id number] [place] [address] [place] RBC (Bld) [#/Vol] 4.80 10*6/uL Normal 3.90-5.20 [facility] Comment on above: Order Comment: Speci men Type: BLOOD SPECIMENOrdering Facility: [facility] Address: [address] [place] [address] Performed By: #### 5 7021-8 ####[facility] CENTERNCA [id number] [place] [address] [place] WBC (Bld) [#/Vol] 10.92 10*3/uL Normal 3.70-11.00 [facility] Comment on above: Order Comment: Speci men Type: BLOOD SPECIMENOrdering Facility: [facility] Address: [address] [place] [address] Performed By: #### 5 7021-8 ####[facility] CENTERNCLIA [id number] [place] [address] [place] nuchal translucency me asured by USon 02-18-2024 Indication First trimester anatomic survey Impression REMOTE READ The patient is referred for a first trimester anatomy scan including nuchal translucency measurement as clinically indicated. - Single, live, intrauterine . - [place] rump length measurement is consistent with the [...] view: visualized 4-chamber view with color: visualized 3-kqojsh-naxptqd view: normal Abdominal cord insertion: normal Stomach: [...] cm Lt ovary: Not visualized Performed By: Mathew Lopez RDMS, RVT Read By: Marlene Prakash M.D. MATERNAL MEDICINE [facility] Radiology Study observation (narrative) [facility] HBV surface Ag Ser Qlon 02-02 HBV surface Ag Ql (S) Negative Normal Negative [facility] Comment on above: Order Comment: Speci men Type: BLOOD SPECIMENOrdering Facility: [facility] Address: [address] [place] [address] Performed By: #### 5 195-3, 31370-9, 45008-5 ####[facility] LABCLIA [id number] [place] [address] [place] HCV Ab Ser Qlon 02-18-2024 HCV Ab Ql (S) Negative Normal Negative [facility] Comment on above: Order Comment: Speci men Type: BLOOD SPECIMENOrdering Facility: [facility] Address: [address] [place] [address] Result Comment: The result suggests no evidence of active infection with Hepatitis C virus. Should recent infection be suspected, repeat testing may be considered 4-6 weeks after this draw. Performed By: #### 1 6128-1 ####[facility] LABCLIA [id number] [place] [address] [place] HIV 1+2 Ab IA Qlon HIV 1 and 2 Ab IA.rapid Nom (S/P/Bld) Normal [facility] Comment on above: Order Comment: Speci men Type: BLOOD SPECIMENOrdering Facility: [facility] Address: [address] [place] [address] Result Comment: Test not indicated. Performed By: #### 5 195-3, 15646-0, 44117-1 ####[facility] LABCLIA [id number] [place] [address] [place] HIV 1+2 Ab+HIV1 p24 Ag IA Ql Non-Reactive Normal Nonreactive [facility] Comment on above: Order Comment: Speci men Type: BLOOD SPECIMENOrdering Facility: [facility] Address: [address] [place] [address] Performed By: #### 5 195-3, 40026-3, 04242-1 ####[facility] LABIA [id number] [address] [address] [place] HIV immunoassay testing algorithm interpretation (S/P/Bld) [Interp] Normal [facility] Comment on above: Order Comment: Speci men Type: BLOOD SPECIMENOrdering Facility: [facility] Address: [address] [place] [address] Result Comment: No e vidence of HIV-1 or HIV-2 infection. Should recent infection be suspected, repeat testing may be considered 2-3 weeks after this draw. [place] Rev. Code 3701.243(E): This information has been [...] or diagnoses. Performed By: #### 5 195-3, 68872-7, 66843-1 ####[facility] CAMPUSIA [id number] [place] [address] [place] HbA1c (Bld)on 02-18-2024 Average glucose Estimated from glycated hemoglobin (Bld) [Mass/Vol] 80 mg/dL Normal [facility] Comment on above: Order Comment: Speci men Type: BLOOD SPECIMENOrdering Facility: [facility] Address: [address] [place] [address] Result Comment: eAG: (Estimated average glucose) is a calculated value from HgbA1c and is medical collections representative of the average blood glucose level in the last 2-3 month period. Performed By: #### 5 5454-3 ####[facility] LABIA [id number] [place] [address] [place] HbA1c (Bld) [Mass fraction] 4.4 % Normal 4.3-5.6 [facility] Comment on above: Order Comment: Hilda men Type: BLOOD SPECIMENOrdering Facility: [facility] Address: [address] [place] [address] Result Comment: [place] Diabetes Association guidelines indicate that patients with HgbA1c in the range 5.7-6.4% are at increased risk for development of diabetes, and intervention by lifestyle modification may be beneficial. HgbA1c greater or equal to 6.5% is considered diagnostic of diabetes. Performed By: #### 5 5454-3 ####[facility] LABCLIA [id number] [address] [place] [id number] PLUSon 02-18-2024 Cell-free DNA./Cell-free DNA.total Dosage of chromosome-specific cfDNA (cfDNA) [Molar fraction] 20% Normal [facility] Comment on above: Order Comment: Hilda barry Type: BLOOD SPECIMENOrdering Facility: [facility] Address: [address] [place] [address] Performed By: #### M AT21 ####[employer] LABCLIA [id number] [place] [address] Chr 13+18+21+X+Y aneuploidy Dosage of chromosome-specific cfDNA Ql (cfDNA) Negative [facility] Comment on above: Order Comment: Hilda barry Type: BLOOD SPECIMENOrdering Facility: [facility] Address: [address] [place] [address] Performed By: #### M AT21 ####[employer] LABCLIA [id number] [place] [address] Chr 21 trisomy Dosage of chromosome-specific cfDNA Ql (cfDNA) Negative [facility] Comment on above: Order Comment: Hilda men Type: BLOOD SPECIMENOrdering Facility: [facility] Address: [address] [place] [address] Performed By: #### M AT21 ####[employer] LABCLIA [id number] [place] [address] Chr X and Y aneuploidy risk Sequencing Ql (cfDNA) [Interp] Not detected [facility] Comment on above: Order Comment: Speci men Type: BLOOD SPECIMENOrdering Facility: [facility] Address: [address] [place] [address] Result Comment: Not Detected Not Detected Performed By: #### M AT21 ####[employer] LABCLIA [id number] [place] [address] Citation Jalen (Reference lab test) Comment [facility] Comment on above: Order Comment: Speci men Type: BLOOD SPECIMENOrdering Facility: [facility] Address: [address] [place] [address] Result Comment: 1. P anita SAEED et al. Gabrielle Med. 2012;14(3):296-305. 2. Castillo RUFFIN, et al. Prenat Diag. 2013;33(6):591-597. 3. Jono C, et al. Clin Chem. 2015 Apr;61(4):608-616. 4. Kimmy SAEED, et al. Gabrielle Med. 2011;13(11):913-920. 5. ACOG/SMFM Practice Bulletin No. 226, Dec 2019. Performed By: #### M AT21 ####[employer] LABCLIA [id number] [place] [address] Gestational age Estimated from conception date Sánchez [facility] Comment on above: Order Comment: Speci men Type: BLOOD SPECIMENOrdering Facility: [facility] Address: [address] [place] [address] Performed By: #### M AT21 ####[employer] LABCLIA [id number] [place] [address] GESTATIONALAGE AGE > OR = 9W Yes [facility] Comment on above: Order Comment: Speci men Type: BLOOD SPECIMENOrdering Facility: [facility] Address: [address] [place] [address] Performed By: #### M AT21 ####[employer] LABCLIA [id number] [place] [address] Laboratory comment Jalen (Report) Comment [facility] Comment on above: Order Comment: Hilda barry Type: BLOOD SPECIMENOrdering Facility: [facility] Address: [address] [place] [address] Result Comment: The MaterniT(R) 21 PLUS laboratory-developed test (LDT) analyzes circulating cell-free DNA from a maternal blood sample. This test is used for screening purposes and not diagnostic. Clinical correlation is recommended. Validation data on twin pregnancies is limited and the ability of this test to detect aneuploidy in higher multiple gestations has not yet been validated. Performed By: #### M AT21 ####[employer] Holding CompanyIA [id number] [place] [id number] community life director name Nom (Provider) Comment [facility] Comment on above: Order Comment: Hilda barry Type: BLOOD SPECIMENOrdering Facility: [facility] Address: [address] [place] [address] Result Comment: This specimen showed an expected representation of chromosome 21, 18 and 13 material. Clinical correlation is suggested. Comment Scott Euceda MD, PhD, Director, [employer] Performed By: #### M AT21 ####[employer]SI Holding CompanyIA [id number] [place] [address] LIMITATIONS OF THE TEST Comment Normal [facility] Comment on above: Order Comment: Hilda barry Type: BLOOD SPECIMENOrdering Facility: [facility] Address: [address] [place] [address] Result Comment: Abelardo robert the results of [...] and Fragmin(R)). Performed By: #### M AT21 ####[employer] Holding CompanyIA [id number] [place] [address] Monosomy X risk Dosage of chromosome-specific cfDNA Ql (Plasma cell-free+WBC DNA) [Interp] Not detected [facility] Comment on above: Order Comment: Speci men Type: BLOOD SPECIMENOrdering Facility: [facility] Address: [address] [place] [address] Performed By: #### M AT21 ####[employer] LABCLIA [id number] [place] [address] NEGATIVE PREDICTIVE VALUE Note [facility] Comment on above: Order Comment: Speci men Type: BLOOD SPECIMENOrdering Facility: [facility] Address: [address] [place] [address] Result Comment: The Negative Predictive Value (NPV) for trisomy 21, 18, and 13 is greater than 99%. The NPV for SCA and ESS cannot be calculated as SCA and ESS are only reported when an abnormality is detected. Performed By: #### M AT21 ####[employer] LABCLIA [id number] [place] [id number] NOTE Comment [facility] Comment on above: Order Comment: [facility] Type: BLOOD SPECIMENOrdering Facility: [facility] Address: [address] [place] [address] Result Comment: See Notes [employer] is a subsidiary of [employer], using the brand [employer]. This test was developed and its performance characteristics determined by [employer]. It has not been cleared or approved by the Food and Drug Administration. This laboratory is certified under the Clinical Laboratory Improvement Amendments (CLIA) as qualified to perform high complexity clinical laboratory testing and accredited by the [employer] (CAP). If there is future clinical need for adding MaterniT GENOME testing, this specimen will be available until term. [facility] samples will not be retained beyond 60 days. [facility] patients will have to send a new sample for re-sequencing ([facility] Test Code: [id number]). Performed By: #### M AT21 ####[employer] LABCLIA [id number] [place] [id number] PERFORMANCE CHARACTERISTICS Note [facility] Comment on above: Order Comment: Speci men Type: BLOOD SPECIMENOrdering Facility: [facility] Address: [address] [place] [address] Result Comment: ! Sex ! Accuracy: 99.4% [...] ## Sánchez gestation only. Performed By: #### M AT21 ####[employer] LABCLIA [id number] [place] [address] POSITIVE PREDICTIVE VALUE N/A [facility] Comment on above: Order Comment: Speci men Type: BLOOD SPECIMENOrdering Facility: [facility] Address: [address] [place] [address] Performed By: #### M AT21 ####[employer] LABCLIA [id number] [place] [address] Reference Lab Test Method Comment [facility] Comment on above: Order Comment: Speci men Type: BLOOD SPECIMENOrdering Facility: [facility] Address: [address] [place] [address] Result Comment: See Notes Circulating cell-free DNA [...] and 22. Performed By: #### M AT21 ####[employer] LABCLIA [id number] [place] [address] Sex Dosage of chromosome-specific cfDNA Nom (cfDNA) Comment [facility] Comment on above: Order Comment: Speci men Type: BLOOD SPECIMENOrdering Facility: [facility] Address: [address] [place] [address] Result Comment: Cons istent with Male Performed By: #### M AT21 ####[employer] LABCLIA [id number] [place] [address] Test performance information Jalen (Unsp spec) Comment [facility] Comment on above: Order Comment: Speci jhonny Type: BLOOD SPECIMENOrdering Facility: [facility] Address: [address] [place] [address] Result Comment: The performance characteristics of the MaterniT(R) 21 PLUS laboratory-developed test (LDT) have been determined in a clinical validation study with women at increased risk for chromosomal aneuploidy.[1-4] Performed By: #### M AT21 ####[employer] LABCLIA [id number] [place] [address] Trisomy 13 risk Dosage of chromosome-specific cfDNA Ql (cfDNA) [Interp] Negative [facility] Comment on above: Order Comment: Hilda barry Type: BLOOD SPECIMENOrdering Facility: [facility] Address: [address] [place] [address] Performed By: #### M AT21 ####[employer] LABCLIA [id number] [place] [address] Trisomy 18 risk Dosage of chromosome-specific cfDNA Ql (Plasma cell-free+WBC DNA) [Interp] Negative [facility] Comment on above: Order Comment: Hilda barry Type: BLOOD SPECIMENOrdering Facility: [facility] Address: [address] [place] [address] Performed By: #### M AT21 ####[employer] LABCLIA [id number] [place] [address] RUBELLA IGG ANTIBODYon 02-17 RUBELLA IGG AB, QUAL Positive Normal Positive [facility] Comment on above: Order Comment: Hilda barry Type: BLOOD SPECIMENOrdering Facility: [facility] Address: [address] [place] [address] Result Comment: The result suggests recent or past exposure to Rubella virus or history of Rubella vaccination. Positive result may also be seen due to presence of passively-transferred antibodies. Please correlate with patient's history. Performed By: #### R UBIGG ####[facility] LABCLIA [id number] [place] [address] [place] Reagin and Treponema pallidu m IgG and IgM [Interp]on 02-18-2024 T. pallidum IgG+IgM IA Ql (S) Non-Reactive Normal Nonreactive [facility] Comment on above: Order Comment: Speci men Type: BLOOD SPECIMENOrdering Facility: [facility] Address: [address] [place] [address] Performed By: #### 5 195-3, 40662-2, 69412-5 ####[facility] LABIA [id number] [place] [address] [place] Reagin+T pallidum IgG+IgM Se rPl-Impon 02-18-2024 Reagin and Treponema pallidum IgG and IgM [Interp] Cannot exclude recent Treponemal infection if specimen collected within 7-10 days after appearance of suspect lesions or 2-3 weeks after an exposure. Clinical correlation is required. [facility] Comment on above: Order Comment: Speci men Type: BLOOD SPECIMENOrdering Facility: [facility] Address: [address] [place] [address] Performed By: #### 5 195-3, 61204-4, 38155-1 ####[facility] LABIA [id number] [place] [address] [place] Bacteria Ur Culton 4 Bacteria identified Cx Nom (U) ORGANISM ID: 1 <10,000 CFU/ml Normal urogenital reza [facility] Comment on above: Performed By: #### 6 30-4 ####[facility] LABIA [id number] [place] [address] [place] C. trachomatis+N. gonorrhoea e DNA RICHARD+probe Ql (Unsp spec)on 01-14-2024 C. trachomatis rRNA RICHARD+probe Ql (Unsp spec) Negative Normal Negative for Chlamydia trachomatis by amplificaton [facility] Comment on above: Order Comment: Speci men Type: SWABOrdering Facility: [facility] Address: [address] [place] [address] Performed By: #### 3 6902-5 ####[facility] LABCLIA [id number] [place] [address] [place] N. gonorrhoeae rRNA RICHARD+probe Ql (Unsp spec) Negative Normal Negative for Neisseria gonorrhoeae by amplification [facility] Comment on above: Order Comment: Speci men Type: SWABOrdering Facility: [facility] Address: [address] [place] [address] Performed By: #### 3 6902-5 ####[facility] LABCLIA [id number] [place] [address] [place] PAP TESTon 01-14-2024 ADEQUACY [facility] Comment on above: Order Comment: Speci men Type: FLUID SPECIMENOrdering Facility: [facility] Address: [address] [place] [address] Result Comment: Sati sfactory for interpretation. No endocervical component Performed By: #### L [id number] ####[facility] LABCLIA [id number] [place] [address] [place] CASE REPORT [facility] Comment on above: Order Comment: Speci men Type: FLUID SPECIMENOrdering Facility: [facility] Address: [address] [place] [address] Result Comment: Gyne cologic Cytology Report Case: [id number] Authorizing Provider: Angie Ocasio APRN.PREPARED FOODS SUPERVISOR Collected: 01/14/2024 09:13 AM Ordering Location: OB/Gynecology Received: 01/14/2024 01:06 PM First Screen: Gareth Swanson Tech Specimen: Pap Test, ThinPrep, Cervix Performed By: #### L [id number] ####[facility] LABCLIA [id number] [place] [address] [place] CLINICAL HISTORY, CYTOLOGY, MEDICAL TECHNOLOGIST PRN Routine Exam [facility] Comment on above: Order Comment: Speci men Type: FLUID SPECIMENOrdering Facility: [facility] Address: [address] [place] [address] Performed By: #### L [id number] ####[facility] LABCLIA [id number] [place] [address] [place] FINAL PERFORMING LAB Normal [facility] Comment on above: Order Comment: Speci men Type: FLUID SPECIMENOrdering Facility: [facility] Address: [address] [place] [address] Result Comment: Tech nical component, driver courier screening performed at [facility], [address] [place] [address] CLIA# [id number] Diagnostic interpretation performed at [facility], [address] [place], [place] [address] CLIA# [id number] Manager Planning: Julien Link M.D. Performed By: #### L [id number] ####[facility] LABCLIA [id number] [place] [address] [place] INTERPRETATION, CYTOLOGY, MEDICAL TECHNOLOGIST PRN [facility] Comment on above: Order Comment: Speci men Type: FLUID SPECIMENOrdering Facility: [facility] Address: [address] [place] [address] Result Comment: Nega tive for intraepithelial lesion or malignancy. Performed By: #### L [id number] ####[facility] LABCLIA [id number] [place] [address] [place] LMP 11/23/2023 [facility] Comment on above: Order Comment: Speci men Type: FLUID SPECIMENOrdering Facility: [facility] Address: [address] [place] [address] Performed By: #### L [id number] ####[facility] LABCLIA [id number] [place] [id number] [place] PAP DISCLAIMER COMMENT The Pap Smear is a screening test for cervical cancer. False negative results occur with all screening tests, emphasizing the need for rescreening at recommended intervals, and clinical correlation. [facility] Comment on above: Order Comment: Speci men Type: FLUID SPECIMENOrdering Facility: [facility] Address: [address] [place] [address] Performed By: #### L [id number] ####[facility] LABCLIA [id number] [address] [place] PAP PATROL OFFICER COMMENT This specimen has been analyzed by the ThinPrep Imaging System, an automated imaging and review system, which assists the laboratory in evaluating cells on ThinPrep Pap tests. Following automated imaging, selected villanueva from every slide are reviewed by a driver courier. [facility] Comment on above: Order Comment: Speci men Type: FLUID SPECIMENOrdering Facility: [facility] Address: [address] [place] [address] Performed By: #### L [id number] ####[facility] LABCLIA [id number] [address] [place] POC SHIPPING LEAD PERSON ULTRASOUNDon 01-14-20 24 Indication Confirmation of intrauterine [...] Read By: Angie Ocasio CNP MATERNAL MEDICINE [facility] Radiology Study observation (narrative) Adriana irby [facility] Visit Reporton 1 03-11-2023 Urgent Care Visit Report [facility] [address] [place] [address] OFFICE VISIT Date of Service: 01/10/24 MR#: [id number] Acct: [id number] Name: STEWART ZUNIGA Rep #: [id number] : 2000 Provider: ARDEN Baldwin Age/Sex: 23/F Location: [facility] Status: Signed Intake Vital Signs 11/01/23 11:55 01/10/24 08:43 Height 5 ft 1 in BP 126/68 H Blood Pressure Location Rt brachial Position Sitting Respiration 15 Pulse 89 Pulse Source NIBP Temp 98.7 F Temp Source Oral Pulse Oximetry (%) 98 Oxygen Delivery Method room air Intake Visit Reasons: BILAT EAR PAIN/POLLOCK/SINUS COMPLAINT Chief Complaint: ear pain, PND, POLLOCK, grn mucus Gauge Controller Required: No Is patient in pain?: Yes [...] declines covid testing. info given to provider. [facility] Medical History Physical exam, pre-employment [...] ear pain, PND, POLLOCK, grn mucus Details: STEWART ZUNIGA, is a 23 F who presents [...] Exam Const General: cooperative and healthy appearing [facility] Head: normal to inspection Ears: hearing grossly [...] (if ap (more content not included)... Normal [facility] CNCOon 12-24-2023 CNCO Letter Text Normal [facility] CNOVon 12-24-2023 CNOV Office Visit (CARDMN) STEWART ZUNIGA ([id number]) [birth year] F Date Time Provider Department 12/24/23 8:30 AM JAY BYRD CARDMN During your visit today, we recorded the following information about you: Pulse Blood pressure Weight Height 99/minute 134/84 62 kg 1.562 m Jay Byrd MD 12/24/2023 9:21 AM Signed [facility] Department of Cardiovascular Medicine SECTION OF CARDIAC PACING and ELECTROPHYSIOLOGY OUTPATIENT VISIT DATE December 24, 2023 OUTPATIENT VISIT TYPE NEW PRIMARY CARE PHYSICIAN: Kayleen Mckay MD [address] [place] [address] REFERRING PHYSICIAN: Arnoldo Pablo 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 She has caffeine a few times [...] MEDICINE TESTING: (more content not included)... [facility] ECG COMPLETEon 12-24-2023 ECG COMPLETE Ventricular Rate : 93 BPM Atrial Rate : 93 BPM P-R Interval : 144 ms QRS Duration : 82 ms Q-T Interval : 330 ms QTC Calculation(Bazett) : 410 ms Calculated P [place] : 68 degrees Calculated R [place] : 64 degrees Calculated T [place] : 39 degrees SINUS RHYTHM WITH PREMATURE SUPRAVENTRICULAR COMPLEXES OTHERWISE NORMAL ECG Confirmed by MD VASQUEZ HEBA ([id number]) on 01/07/2024 8:38:02 PM NAME : STEWART ZUNIGA PID : [id number] : 2000 Gender : Female Race : ORD : [id number] Procedure Date : Dec 24 2023 08:04:19 Edit Date : Jan 07 2024 20:38:04 Diagnosis: SINUS RHYTHM WITH PREMATURE SUPRAVENTRICULAR COMPLEXES OTHERWISE NORMAL ECG Confirmed by MD VASQUEZ HEBA ([id number]) on 01/07/2024 8:38:02 PM Test Reason : Location : 314 : J14 J1-4 Overread By : MD VASQUEZ HEBA Edited By : MD VASQUEZ HEBA Referred By : JAY BYRD Acquired by : MINERVA SAHA [facility] 12-24-2023 CONCLUSIONS: - Exam indication: Syncope, Tachycardia, [...] [facility] Echocardiography Report: Transthoracic Echo [facility] Date of service: 12/24/2023 10:56:13 AM EXECUTIVE DIRECTOR Ordering physician: JAY BYRD Indication: Syncope, Tachycardia, PVC's Technologist: Dominguez Pinto [facility] Interpreting physician: Sylvie Romero MD PATIENT: Name: STEWART ZUNIGA : 2000 Age: 23 years Gender: [...] epicardial fat pad. [facility] Echocardiography Echocardiography Report: Transthoracic Echo [facility] Date of service: 12/24/2023 10:56:13 AM EXECUTIVE DIRECTOR Ordering physician: JAY BYRD Indication: Syncope, Tachycardia, PVC's Technologist: Dominguez Pinto [facility] Interpreting physician: Sylvie Romero MD PATIENT: Name: STEWART ZUNIGA : 2000 Age: 23 years Gender: [...] * * Final * * * CC [employer] Environment Medical Image : [id number]. [id number] DynamicsSISUID [facility] 12 Lead EKGon 11-01-2023 12 Lead EKG [facility] Cardiovascular Services [address] [place] [address] 12 Lead EKG 11/01/23 1200 MR#: [id number] Acct: [id number] Name: STEWART ZUNIGA Rep #: [id number] : 2000 23 From: Rubio Paulino MD [...] POSSIBLY AGE RELATED Confirmed by Rubio Paulino ([id number]), editor farm journal AGUSTIN MCCLURE ([id number]) on 11/02/2023 8:19:05 AM Referred By: RUTHIE/ROBIN Confirmed By:Rubio Paulino 11/02/23 0819 Date Rubio Paulino MD CC: Dr. Antoine Dodson MD; Dr. Kayleen Mckay MD Signed Normal [facility] Basic Metabolic Profile (BMP )on 11-01-2023 BUN/CRE 6.8 RATIO Low 10-20 [facility] Comment on above: Order Comment: 1Y Performed By: #### L 501.4021 #### [facility] [address] [place], [address] CA,Total 9.3 mg/dL Normal 8.5-10.1 [facility] Comment on above: Order Comment: 1Y Performed By: #### L 501.4021 #### [facility] [address] [place], [address] Chloride [Moles/Vol] 107 mmol/L Normal 98-107 [facility] Comment on above: Order Comment: 1Y Performed By: #### L 501.4021 #### [facility] [address] [place], [address] CO2 [Moles/Vol] 23.0 mmol/L Normal 21.0-32.0 [facility] Comment on above: Order Comment: 1Y Performed By: #### L 501.4021 #### [facility] [address] [place], [address] Creatinine [Mass/Vol] 0.74 mg/dL Normal 0.55-1.02 [facility] Comment on above: Order Comment: 1Y Result Comment: The validity of the calculated GFR GFRAA in patients over 70 years has not been determined. Clinical correlation is essential. Performed By: #### L 501.4021 #### [facility] [address] [place], [address] ECRCL 103.66 ml/min Normal [facility] Comment on above: Order Comment: 1Y Performed By: #### L 501.4021 #### [facility] [address] [place], [address] EST GFR - AA 127 mL/min Normal >60 [facility] Comment on above: Order Comment: 1Y Result Comment: Afri can Bhutanese GFR Calc Performed By: #### L 501.4021 #### [facility] [address] [place], [address] GAP 7 Normal 5-15 [facility] Comment on above: Order Comment: 1Y Performed By: #### L 501.4021 #### [facility] [address] [place], [address] GFR/1.73 sq M.predicted among non-blacks MDRD (S/P/Bld) [Vol rate/Area] 105 mL/min/{1.73_m2} Normal >60 [facility] Comment on above: Order Comment: 1Y Result Comment: Non- GFR Calc Performed By: #### L 501.4021 #### [facility] [address] [place], [address] Glucose [Mass/Vol] 112 mg/dL High 74-106 [facility] Comment on above: Order Comment: 1Y Result Comment: Fast ing Glucose result from 100 to 125 mg/dL suggests IMPAIRED HOMEOSTASIS per A.D.A. criteria. Performed By: #### L 501.4021 #### [facility] [address] [place], [address] Potassium [Moles/Vol] 3.3 mmol/L Low 3.5-5.1 [facility] Comment on above: Order Comment: 1Y Performed By: #### L 501.4021 #### [facility] [address], [address] Sodium [Moles/Vol] 137 mmol/L Normal 136-145 [facility] Comment on above: Order Comment: 1Y Performed By: #### L 501.4021 #### [facility] [address] [place], [address] Urea nitrogen [Mass/Vol] 5 mg/dL Low 7-18 [facility] Comment on above: Order Comment: 1Y Performed By: #### L 501.4021 #### [facility] [address] [place], [address] CBC W/Diff, Automatedon 08-2 -2023 Absolute Lymph 0.44 X10 3/uL Low 0.83-4.51 [facility] Comment on above: Performed By: #### L [id number] #### [facility] [address] [place], [address] Absolute Neut 9.2 X10 3/uL High 2.0-7.7 [facility] Comment on above: Performed By: #### L [id number] #### [facility] [address] [place], [address] Basophils/100 WBC (Bld) 0.3 % Normal 0-1 [facility] Comment on above: Performed By: #### L [id number] #### [facility] [address] [place], [address] Eosinophils/100 WBC (Bld) 3.5 % Normal 0-5 [facility] Comment on above: Performed By: #### L [id number] #### [facility] [address] [place], [address] Erythrocyte distribution width (RBC) [Ratio] 12.2 % Normal 11.6-14.6 [facility] Comment on above: Performed By: #### L 501.4021 #### [facility] [address] [place], [address] Hematocrit (Bld) [Volume fraction] 40.5 % Normal 37-47 [facility] Comment on above: Performed By: #### L 501.4021 #### [facility] [address] [place], [address] Hemoglobin (Bld) [Mass/Vol] 14.1 g/dL Normal 12.0-15.0 [facility] Comment on above: Performed By: #### L 501.4021 #### [facility] [address] [place], [address] IG% 0.200 Normal 0.0-0.9 [facility] Comment on above: Result Comment: IG% - Immature Granulocytes (promyelocytes, myelocytes and metamyelocytes) > 1% indicates that a LEFT SHIFT is Present. Performed By: #### L 501.4021 #### [facility] [address] [place], [address] Lymphocytes/100 WBC (Bld) 4.1 % Low 19-41 [facility] Comment on above: Performed By: #### L [id number] #### [facility] [address] [place], [address] MCH (RBC) [Entitic mass] 29.9 pg Normal 27.0-32.0 [facility] Comment on above: Performed By: #### L [id number] #### [facility] [address] [place], [address] MCHC (RBC) [Mass/Vol] 34.8 g/dL Normal 32-36 [facility] Comment on above: Performed By: #### L [id number] #### [facility] [address] [place], [address] MCV (RBC) [Entitic vol] 86.0 fL Normal 81-99 [facility] Comment on above: Performed By: #### L [id number] #### [facility] [address] [place], [address] Monocytes/100 WBC (Bld) 6.3 % Normal 0-10 [facility] Comment on above: Performed By: #### L [id number] #### [facility] [address] [place], [address] Neutrophils/100 WBC (Bld) 85.6 % High 47-70 [facility] Comment on above: Performed By: #### L 501.4021 #### [facility] [address] [place], [address] Nucleated RBC (Bld) [#/Vol] 0 10*3/uL Normal 0-5 [facility] Comment on above: Performed By: #### L 501.4021 #### [facility] [address] [place], [address] Platelet mean volume (Bld) [Entitic vol] 9.6 fL Normal 6.2-12.0 [facility] Comment on above: Performed By: #### L 501.4021 #### [facility] [address] [place], [address] Platelets (Bld) [#/Vol] 274 10*3/uL Normal 150-450 [facility] Comment on above: Performed By: #### L 501.4021 #### [facility] [address] [place], [address] RBC (Bld) [#/Vol] 4.71 10*6/uL Normal 4.2-5.4 [facility] Comment on above: Performed By: #### L 501.4021 #### [facility] [address] [place], [address] RDW SD 38.5 fl Normal 35.1-43.9 [facility] Comment on above: Performed By: #### L [id number] #### [facility] [address] [place], [address] WBC (Bld) [#/Vol] 10.7 10*3/uL Normal 4.4-11.0 [facility] Comment on above: Performed By: #### L 501.4021 #### [facility] [address] [place], [address] Chest 1 View (Portable)on Chest 1 View (Portable) [facility] Imaging Services [address] [place] [address] Chest 1 View (Portable) MR#: [id number] Acct: [id number] Name: STEWART ZUNIGA Rep #: [id number] : 2000 F 23 From: Neville Cardenas MD PCP: Dr. Kyaleen Mckay MD Status: REG ER Study: Chest 1 View (Portable) Date of Exam: 11/01/23 Exam# [id number] Ordering Dr: Antoine Dodson MD [id number] STUDY: X-RAY CHEST REASON FOR EXAM: Female, [...] Antoine Dodson MD; Dr. Kayleen Mckay MD Rotor Coil Taper: Signed Normal [facility] D-Dimer Quantitative (DVT/PE )on 11-01-2023 D-DIMER QUANT < 0.27 Low 0.27-0.49 [facility] Comment on above: Result Comment: MAYKEL ARROYO D-Dimer level (<0.50) indicates no DVT or PE. Performed By: #### L 400.0001 #### [facility] [address] [place], [address] Emergency Department Summary on 11-01-2023 Emergency Department Summary [facility] Medical Records Department [address] [place] [address] Emergency Department Summary 11/01/23 MR#: [id number] Acct: [id number] Name: STEWART ZUNIGA Rep #: [id number] : 2000 23 From: Antoine Dodson MD PCP: Dr. 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 Non-smoker. [facility] Medical History Physical exam, pre-employment Palpitations Chest [...] of 10. (more content not included)... Normal [facility] L501.4020on 11-01-2023 TROPONIN-I HS 4 pg/mL Normal 3.0-54.0 [facility] Comment on above: Result Comment: Bacilio casarez Note: New Test Units and Gender Specific Reference Ranges. For more information see Policy Stat Procedure Hiko High Sensitivity Troponin (TNIH) and attachments. Performed By: #### L 501.4020 #### [facility] [address] [place], [place], [address] Order Comment: CLEAN CATCH Performed By: #### L 400.0001 #### [facility] [address] [place], [place], [address] Lipaseon 11-01-2023 Lipase [Catalytic activity/Vol] 15 U/L Normal 13-75 [facility] Comment on above: Result Comment: Bacilio casarez note: LIPASE revised reference range effective 22. New Lipase methodology. Expected to produce lower values than the previous assay method. NEW Reference Range: 13 - 75 U/L Performed By: #### L 499.0042 #### [facility] [address] [place], [address] Magnesiumon 11-01-2023 Magnesium [Mass/Vol] 1.8 mg/dL Normal 1.6-2.6 [facility] Comment on above: Order Comment: 1Y Performed By: #### L 501.4021 #### [facility] [address] [place], [address] ,Serum,hCG Quali.on 11-01-2023 HCG, SERUM QUAL Negative Normal [facility] Comment on above: Performed By: #### L 499.0042 #### [facility] [address] [place], [address] Urinalysis, Completeon 10-31 BACTERIA 1+ /hpf Normal None Seen [facility] Comment on above: Order Comment: CLEAN CATCH Performed By: #### L 400.0001 #### [facility] [address] [place], [address] EPI,SQUAMOUS 5-10 SEEN Normal 5-10 [facility] Comment on above: Order Comment: CLEAN CATCH Performed By: #### L 400.0001 #### [facility] [address] [place], [address] Mucus Ql (Urine sed) 0 SEEN Normal [facility] Comment on above: Order Comment: CLEAN CATCH Performed By: #### L 400.0001 #### [facility] [address] [place], [address] RBC 0 SEEN Normal 0-5 [facility] Comment on above: Order Comment: CLEAN CATCH Performed By: #### L 400.0001 #### [facility] [address] [place], [address] WBC 0 SEEN Normal 0-5 [facility] Comment on above: Order Comment: CLEAN CATCH Performed By: #### L 400.0001 #### [facility] [address] [place], [address] Urgent Care Visit Reporton 0 10-23-2023 Urgent Care Visit Report [facility] [address] [place] [address] OFFICE VISIT Date of Service: 10/23/23 MR#: [id number] Acct: [id number] Name: STEWART ZUNIGA Rep #: [id number] : 2000 Provider: ARDEN Berkowitz Age/Sex: 23/F Location: [facility] Status: Signed Intake Vital Signs 08/10/23 10:41 [...] Reasons: RASH/CONCREN FOR BITE Chief Complaint: rash Gauge Controller Required: No Is patient in pain?: No [...] tried triamcinolone cream and bendadryl without relief. [facility] Medical History (Updated 10/17/23 @ [...] Yes HPI HPI Chief Complaint: rash Details: STEWART ZUNIGA, is a 23 F who presents to the office today for initial evaluation pruritic hive-like rash to anterior CW, BUE, BLE as well as skin peeling to bilateral thumbs and index finger palmar DPs. Patient states she has used multiple denp-blm-[id number] topical applications as well as oral Benadryl [...] should symptoms (more content not included)... Normal [facility] Urgent Care Visit Reporton 0 10-17-2023 Urgent Care Visit Report [facility] [address], [address] [place] [address] OFFICE VISIT Date of Service: 10/17/23 MR#: [id number] Acct: [id number] Name: STEWART ZUNIGA Rep #: [id number] : 2000 Provider: ARDEN Berkowitz Age/Sex: 23/F Location: [facility] Status: Signed Intake Vital Signs 08/10/23 10:41 [...] Adverse Reaction (Severe, Verified 08/10/23 11:28) Rash [facility] Medical History (Updated 10/17/23 @ [...] HPI HPI Chief Complaint: sore throat Details: STEWART ZUNIGA, is a 23 F who presents to the office today for Office Procedures Physical Exam Coding PE Coding Pre-employment PE: Yes Coding Level of Care Code No Charge Diagnoses Physical exam, pre-employment Z02.1 Assessment and Plan Assessment and Plan (1) Physical exam, pre-employment: Status: Acute 10/17/23 1606 Date Nilton Adan Signature: Date (if applicable) CC: Normal [facility] Progress Noteon 05-02-2023 Estate Tax Examiner Authentication Interface Message Text We had the pleasure of seeing Stewart Zuniga in the [facility] on May 02, 2023. As you know, Stewart is a 23 y.o. female seen in follow-up for premature ventricular complexes. She was last seen on July 26, 2022 and presents today for scheduled follow-up. Stewart notes infrequent palpitations and chest pain since [...] sudden . On review of social history Stewart lives in [place], [place]. 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 Physical exam showed: Weight - Scale: 64 kg Height: (!) 154.6 cm. Heart rate was 92 beats per minute, respiratory rate was 20 breaths per minute, and blood pressure was 134/85 mmHg. In general, Stewart is acyanotic, well developed, well nourished, and [...] July 26, 2022). E. Normal echocardiogram. ASSESSMENT: Stewart is a 23 y.o. female with frequent [...] will follow-up the Holter monitor results by Bobby. As Stewart is 23 years of age, she should transition to general adult cardiology for follow-up within the next year. Total encounter time was 20 minutes, which includes chart review, counseling, documentation and/or coordination of care. Normal [facility] Progress Noteon 04-25-2023 Estate Tax Examiner Authentication Interface Message Text Patient ID: Stewatr Zuniga is a 23 y.o. female. Her chief complaint(s) include: 21+ YEAR WELL CHILD (Skin dryness. OTC lotions dont seem to help) Assessment 1. Routine general medical examination at a health care facility 2. Eczema, unspecified type 3. PVC's (premature ventricular contractions) 4. Chest pain, unspecified type 5. Dysmenorrhea 6. Nonintractable headache, unspecified chronicity pattern, unspecified headache type Plan Stewart was seen today for 21+ year well child. Diagnoses and associated orders for this visit: Routine general medical examination at a health care facility - Hearing Screening - PHQ9 Assessment With Score - Health Risk Assessment - WALTER Eczema, unspecified type - hydrocortisone 2.5 % ointment; Apply to affected area 2 times daily for 7 days Apply thin film to affected areas PVC's (premature ventricular contractions) Chest pain, unspecified type Dysmenorrhea Nonintractable headache, unspecified chronicity pattern, unspecified headache type Return in about 1 year (around 04/25/2024) for well check. Stewart is doing well overall. Passed hearing screening. [...] is unaccompanied. 21+ YEAR WELL CHILD Home: Stewart has an adult to turn to for help and is permitted and able to make independent decisions. Education: Stewart is a highschool graduate. (Going to start working at [employer]. Was working at [employer]). Eating: Stewart eats regular meals including fruits and vegetables and has a calcium source (calcium gummies, almond milk). Activities & Sports: Stewart has friends and has a job. (likes spending time with family and dogs). Drugs: Stewart uses alcohol (occasional). Stewart does not use tobacco, does not use drugs and does not vape. Safety: Stewart has a violence free home and has peer relationships free from violence. Sex: The patient has never had a sexual partner. The patient is interested in males (dating her boyfriend for almost 2 years, talking about engagement). Suicidality: Stewart has no depression and has no anxiety. [...] (more content not included)... Invalid Interpretation Code [facility] Absolute lymphocyte countOrd ered By: Tanya Ene on 10-22-2022 Lymphocytes Auto (Unsp spec) [#/Vol] 2.68 10*3/uL 0.83-4.51 [facility] Basophil percentageOrdered B y: Thea Luque on 10-22-2022 Basophil percentage 5-10 SEEN /hpf 0-5 [facility] Basophils/100 WBC (Bld) 0.4 % 0-1 [facility] Chloride [Moles/Vol] 109 mmol/L 98-107 [facility] Eosinophils/100 WBC (Bld) 2.0 % 0-5 [facility] Glucose [Mass/Vol] 113 mg/dL 74-106 [facility] Comment on above: Fasting Glucose resu lt from 100 to 125 mg/dL suggests IMPAIRED HOMEOSTASIS per A.D.A. criteria. Lactate [Moles/Vol] 1.1 mmol/L 0.4-2.0 [facility] Neutrophils (Bld) [#/Vol] 9.4 10*3/uL 2.0-7.7 [facility] Neutrophils/100 WBC (Bld) 70.5 % 47-70 [facility] Potassium [Moles/Vol] 3.3 mmol/L 3.5-5.1 [facility] Sodium [Moles/Vol] 139 mmol/L 136-145 [facility] WBC (Bld) [#/Vol] 13.3 10*3/uL 4.4-11.0 [facility] Beta hCG serum qualOrdered B y: Thea Ene on 10-22-2022 Beta HCG ( test) Ql Negative [facility] Bilirubin Test strip Ql (U)O rdered By: Thea Ibarraradha on 10-22-2022 Bilirubin Ql (U) 1 mg/dL Negative [facility] Comment on above: COLOR OF URINE MAY A FFECT DIPSTICK RESULTS. Blood erythrocytes count (nu mber/volume)Ordered By: Thea Luque on 10-22-2022 RBC (Bld) [#/Vol] 4.81 10*6/uL 4.2-5.4 [facility] Blood hemoglobin measurement (mass/volume)Ordered By: Thea Luque on 10-22-2022 Hemoglobin (Bld) [Mass/Vol] 14.1 g/dL 12.0-15.0 [facility] Blood lymphocytes/100 leukoc ytesOrdered By: Thea Luque on 10-22-2022 Lymphocytes/100 WBC (Bld) 20.1 % 19-41 [facility] Blood monocytes/100 leukocyt esOrdered By: Thea Luque on 10-22-2022 Monocytes/100 WBC (Bld) 6.5 % 0-10 [facility] Blood platelet mean volumeOr dered By: Thea Luque on 10-22-2022 Platelet mean volume (Bld) [Entitic vol] 10.7 fL 6.2-12.0 [facility] Determination of erythrocyte mean corpuscular volume (MCV)Ordered By: Thea Luque on 10-22-2022 MCV (RBC) [Entitic vol] 87.1 fL 81-99 [facility] Hematocrit Auto (Bld) [Volum e fraction]Ordered By: Thea Luque on 10-22-2022 Hematocrit (Bld) [Volume fraction] 41.9 % 37-47 [facility] Ketones Test strip Ql (U)Ord ered By: Thea Luque on 10-22-2022 Ketones Ql (U) 150 mg/dl Negative [facility] Comment on above: CRITICAL VALUE *HCRI TICAL VALUE VERIFIED. CALLED TO ORLIN CLARK10/22/221856 Nancy Guzman.RESULTS READ BACK BY SAME . Laboratory - Chemistry and C hemistry - challengeOrdered By: Thea Luque on 10-22-2022 CO2 [Moles/Vol] 21.0 mmol/L 21.0-32.0 [facility] Urea nitrogen/Creatinine [Mass ratio] 11.8 mg/mg 10-20 [facility] - Hematology and Cell countsOrdered By: Thea Luque on 10-22-2022 Erythrocyte distribution width (RBC) [Entitic vol] 38.5 fL 35.1-43.9 [facility] Erythrocyte distribution width (RBC) [Ratio] 12.1 % 11.6-14.6 [facility] Immature granulocytes/100 WBC (Bld) 0.500 % 0.0-0.9 [facility] Comment on above: IG% - Immature Granu locytes (promyelocytes, myelocytes and metamyelocytes) > 1% indicates that a LEFT SHIFT is Present. MCH (RBC) [Entitic mass] 29.3 pg 27.0-32.0 [facility] Nucleated RBC/100 WBC (Bld) [Ratio] 0 % 0-5 [facility] MCHC Auto (RBC) [Mass/Vol]Or dered By: Thea Luque on 10-22-2022 MCHC (RBC) [Mass/Vol] 33.7 g/dL 32-36 [facility] Mucus LM Ql (Urine sed)Order ed By: Thea Luque on 10-22-2022 Mucus Ql (Urine sed) 1+ /hpf [facility] Nitrite Test strip Ql (U)Ord ered By: Thea Luque on 10-22-2022 Nitrite Ql (U) Negative Negative [facility] No Panel InformationOrdered By: Thea Luque on 10-22-2022 Estimated Creatinine Clearance Calc 66.39 ml/min [facility] Estimated GFR (MDRD) Amer 88 mL/min >60 [facility] Comment on above: GFR Calc Estimated GFR (MDRD) Non-Af Amer 73 mL/min >60 [facility] Comment on above: Non- GFR Calc Platelets bldOrdered By: Tanya Luque on 10-22-2022 Platelets (Bld) [#/Vol] 418 10*3/uL 150-450 [facility] Protein Test strip Ql (U)Ord ered By: Thea Luque on 10-22-2022 Protein Ql (U) 100 mg/dl Negative [facility] Serum or plasma calcium noa urement (mass/volume)Ordered By: Thea Luque on 10-22-2022 Calcium [Mass/Vol] 9.6 mg/dL 8.5-10.1 [facility] Serum or plasma creatinine m easurement (mass/volume)Ordered By: Remus Luque on 10-22-2022 Creatinine [Mass/Vol] 1.02 mg/dL 0.55-1.02 [facility] Comment on above: The validity of the calculated GFR & GFRAA in patients over 70 years has not been determined. Clinical correlation is essential. Serum or plasma urea nitroge n measurement (mass/volume)Ordered By: Thea Luque on 10-22-2022 Urea nitrogen [Mass/Vol] 12 mg/dL 7-18 [facility] Squamous epithelial cells de tection in urine sediment by light microscopyOrdered By: Thea Luque on 10-22-2022 Epithelial cells.squamous LM Ql (Urine sed) 0-5 SEEN /hpf 5-10 [facility] Thin prep Papanicolaou smear with manual screeningOrdered By: Thea Luque on 10-22-2022 Thin prep Papanicolaou smear with manual screening 9 5-15 [facility] Urine blood detectionOrdered By: Thea Luque on 10-22-2022 RBC Ql (U) 250 /ul Negative [facility] RBC Ql (U) 10-25 SEEN /hpf 0-5 [facility] Urine clarityOrdered By: Tanya Luque on 10-22-2022 Clarity (U) Cloudy Clear [facility] Urine color determinationOrd ered By: Thea Luque on 10-22-2022 Color (U) Brown Yellow [facility] Urine glucose detectionOrder ed By: Thea Luque on 10-22-2022 Glucose Ql (U) Normal mg/dl Normal [facility] Urine leukocyte esterase det ection by dipstickOrdered By: Thea Luque on 10-22-2022 Leukocyte esterase Test strip Ql (U) 100 /ul Negative [facility] Urine pHOrdered By: Tanyaus Pendleton gur on 10-22-2022 pH (U) 7.0 [pH] 5.0 - 8.0 [facility] Urine sediment bacteria coun t by microscopy (number/high power field)Ordered By: Thea Ibarraradha on 10-22-2022 Bacteria LM.HPF (Urine sed) [#/Area] 2 /[HPF] None Seen [facility] Urine specific gravity measu rementOrdered By: Thea Luque on 10-22-2022 Specific gravity (U) [Rel density] 1.015 1.002-1.030 [facility] Urobilinogen Auto test strip Ql (U)Ordered By: Thea Luque on 10-22-2022 Urobilinogen Ql (U) 12 mg/dl Normal [facility] Progress Noteon 07-26-2022 Estate Tax Examiner Authentication Interface Message Text We had the pleasure of seeing Stewart Zuniga in the [facility] at [facility] on July 26, 2022. As you know, Stewart is a 22 y.o. female seen in follow-up for chest pain and premature ventricular complexes. She was last seen on December 28, 2021 and presents today for scheduled follow-up. Stewart reports worsening chest pain over the 2-3 weeks described intermittent pain associated with feelings or irregular heart rate. Stewart has decreased her caffeine intake and increased [...] sudden . On review of social history Stewart lives with her family in [place], [place]. Physical exam showed: Weight - Scale: 59.6 kg, Facility age limit for growth %jennifer is 22 years. Height: (!) 155 cm, Facility age limit for growth %jennifer is 22 years. Heart rate was 99 beats per minute, respiratory rate was 24 breaths per minute, and blood pressure was 132/84 mmHg. In general, Stewart is acyanotic, well developed, well nourished, and [...] December 28, 2021). D. Normal echocardiogram. ASSESSMENT: Stewart is a 22 y.o. female with frequent premature ventricular complexes and chest pain correlating with her ventricular ectopy. At this time, Stewart would like to trial beta blockade in [...] will follow-up her Holter monitor results by Bobby. We will plan to see Stewart in follow-up in 2 months for repeat evaluation and medication titration as needed. Total encounter time was 30 minutes, which includes chart review, counseling, documentation and/or coordination of care. Normal [facility] - Microbiology an d Antimicrobial susceptibilityon 03-16-2022 SARS-CoV-2 (COVID-19) RNA RICHARD+probe Ql (Unsp spec) Not detected [facility] No Panel Informationon 03-16 Influenza Types A,B Rapid (Clinic) Not detected [facility] Vital Signs Date Time Vital Sign Value Performing Clinician Facility 11-14-2024 14:15-0400 Body mass index (BMI) [Ratio] 27.02 kg/m2 Georgia Lino MD Work Phone: [facility] 11-14-2024 14:15-0400 Body weight 64.86 kg Georgia Lino MD Work Phone: [facility] 11-14-2024 14:15-0400 Diastolic blood pressure 74 mm[Hg] Georgia Lino MD Work Phone: [facility] 11-14-2024 14:15-0400 Systolic blood pressure 114 mm[Hg] Georgia Lino MD Work Phone: [facility] 11-12-2024 11:36-0400 Body mass index (BMI) [Ratio] 27.58 kg/m2 Flaquita Romero APRN.PREPARED FOODS SUPERVISOR Work Phone: [facility] 11-12-2024 11:36-0400 Body temperature 98.1 [degF] Flaquita Romero APRN.PREPARED FOODS SUPERVISOR Work Phone: [facility] 11-12-2024 11:36-0400 Body weight 66.2 kg Flaquita Romero APRN.PREPARED FOODS SUPERVISOR Work Phone: [facility] 11-12-2024 11:36-0400 Diastolic blood pressure 72 mm[Hg] Flaquita Romero APRN.PREPARED FOODS SUPERVISOR Work Phone: [facility] 11-12-2024 11:36-0400 Heart rate 116 /min Flaquita Romero APRN.PREPARED FOODS SUPERVISOR Work Phone: [facility] 11-12-2024 11:36-0400 Respiratory rate 16 /min Flaquita Romero APRN.PREPARED FOODS SUPERVISOR Work Phone: [facility] 11-12-2024 11:36-0400 SaO2% (BldA) [Mass fraction] 98 % Flaquita Romero APRN.PREPARED FOODS SUPERVISOR Work Phone: [facility] 11-12-2024 11:36-0400 Systolic blood pressure 110 mm[Hg] Flaquita Romero MOGUL OPERATOR.PREPARED FOODS SUPERVISOR Work Phone: [facility] 10-21-2024 10:23-0400 Body mass index (BMI) [Ratio] 27.21 kg/m2 Genesis Martinez MD Work Phone: [facility] 10-21-2024 10:23-0400 Body weight 65.32 kg Genesis Martinez MD Work Phone: [facility] 10-21-2024 10:23-0400 Diastolic blood pressure 74 mm[Hg] Genesis Martinez MD Work Phone: [facility] 10-21-2024 10:23-0400 Systolic blood pressure 110 mm[Hg] Genesis Martinez MD Work Phone: [facility] 10-13-2024 13:03-0400 Body mass index (BMI) [Ratio] 27.1 kg/m2 Angie Bhargavi MOGUL OPERATOR.PREPARED FOODS SUPERVISOR Work Phone: [facility] 10-13-2024 13:03-0400 Body weight 65.05 kg Angie Bhargavi MOGUL OPERATOR.PREPARED FOODS SUPERVISOR Work Phone: [facility] 10-13-2024 13:03-0400 Diastolic blood pressure 68 mm[Hg] Angie Swayzee MOGUL OPERATOR.PREPARED FOODS SUPERVISOR Work Phone: [facility] 10-13-2024 13:03-0400 Systolic blood pressure 110 mm[Hg] Angie Bhargavi MOGUL OPERATOR.PREPARED FOODS SUPERVISOR Work Phone: [facility] 10-06-2024 14:49-0400 Body mass index (BMI) [Ratio] 27.02 kg/m2 Amilcar Plotts MOGUL OPERATOR.CNM Work Phone: [facility] 10-06-2024 14:49-0400 Body weight 64.86 kg Amilcar Plotts MOGUL OPERATOR.CNM Work Phone: [facility] 10-06-2024 14:49-0400 Diastolic blood pressure 78 mm[Hg] Amilcar Plotts MOGUL OPERATOR.CNM Work Phone: [facility] 10-06-2024 14:49-0400 Heart rate 82 /min Amilcar Plotts MOGUL OPERATOR.CNM Work Phone: [facility] 10-06-2024 14:49-0400 SaO2% (BldA) [Mass fraction] 98 % Amilcar Plotts MOGUL OPERATOR.CNM Work Phone: [facility] 10-06-2024 14:49-0400 Systolic blood pressure 116 mm[Hg] Amilcar Plotts MOGUL OPERATOR.CNM Work Phone: [facility] 09-29-2024 08:50-0400 Body height 154.9 cm Naren Haury MOGUL OPERATOR.PREPARED FOODS SUPERVISOR Work Phone: [facility] 09-29-2024 08:50-0400 Body mass index (BMI) [Ratio] 26.83 kg/m2 Naren Haury MOGUL OPERATOR.PREPARED FOODS SUPERVISOR Work Phone: [facility] 09-29-2024 08:50-0400 Body weight 64.41 kg Naren Haury MOGUL OPERATOR.PREPARED FOODS SUPERVISOR Work Phone: [facility] 09-29-2024 08:50-0400 Diastolic blood pressure 82 mm[Hg] Naren Haury MOGUL OPERATOR.PREPARED FOODS SUPERVISOR Work Phone: [facility] 09-29-2024 08:50-0400 Systolic blood pressure 116 mm[Hg] Naren Haury MOGUL OPERATOR.PREPARED FOODS SUPERVISOR Work Phone: [facility] 09-11-2024 11:02-0400 Body mass index (BMI) [Ratio] 27.06 kg/m2 Milly Singh MD Work Phone: [facility] 09-11-2024 11:02-0400 Body weight 64.95 kg Milly Singh MD Work Phone: [facility] 09-11-2024 11:02-0400 Diastolic blood pressure 72 mm[Hg] Milly Singh MD Work Phone: [facility] 09-11-2024 11:02-0400 Systolic blood pressure 110 mm[Hg] Milly Singh MD Work Phone: [facility] 09-02-2024 09:01-0400 Body mass index (BMI) [Ratio] 28.53 kg/m2 Georgia Lino MD Work Phone: [facility] 09-02-2024 09:01-0400 Body weight 68.49 kg Georgia Lino MD Work Phone: [facility] 09-02-2024 09:01-0400 Diastolic blood pressure 66 mm[Hg] Georgia Lino MD Work Phone: [facility] 09-02-2024 09:01-0400 Systolic blood pressure 122 mm[Hg] Georgia Lino MD Work Phone: [facility] 08-29-2024 13:47-0400 Body mass index (BMI) [Ratio] 29.1 kg/m2 Genesis Martinez MD Work Phone: [facility] 08-29-2024 13:47-0400 Body weight 69.85 kg Genesis Martinez MD Work Phone: [facility] 08-29-2024 13:47-0400 Diastolic blood pressure 70 mm[Hg] Genesis Martinez MD Work Phone: [facility] 08-29-2024 13:47-0400 Systolic blood pressure 112 mm[Hg] Genesis Martinez MD Work Phone: [facility] 08-25-2024 14:10-0400 Heart rate 100 /min No Primary Care Physician [facility] 08-25-2024 12:00-0400 Body temperature 98.6 [degF] No Primary Care Physician [facility] 08-25-2024 12:00-0400 Diastolic blood pressure 87 mm[Hg] No Primary Care Physician [facility] 08-25-2024 12:00-0400 Respiratory rate 18 /min No Primary Care Physician [facility] 08-25-2024 12:00-0400 SaO2% (BldA) [Mass fraction] 98 % No Primary Care Physician [facility] 08-25-2024 12:00-0400 Systolic blood pressure 128 mm[Hg] No Primary Care Physician [facility] 08-22-2024 19:23-0400 Body height 154.94 cm No Primary Care Physician [facility] 08-22-2024 19:23-0400 Body mass index (BMI) [Ratio] 32 kg/m2 No Primary Care Physician [facility] 08-22-2024 19:23-0400 Body weight 76.82 kg No Primary Care Physician [facility] 08-22-2024 08:25-0400 Body mass index (BMI) [Ratio] 32.01 kg/m2 Georgia Lino MD Work Phone: [facility] 08-22-2024 08:25-0400 Body weight 76.84 kg Georgia Lino MD Work Phone: [facility] 08-22-2024 08:25-0400 Diastolic blood pressure 84 mm[Hg] Georgia Lino MD Work Phone: [facility] 08-22-2024 08:25-0400 Systolic blood pressure 124 mm[Hg] Georgia Lino MD Work Phone: [facility] 08-19-2024 14:52-0400 Body mass index (BMI) [Ratio] 32.12 kg/m2 Georgia Lino MD Work Phone: [facility] 08-19-2024 14:52-0400 Body weight 77.11 kg Georgia Lino MD Work Phone: [facility] 08-19-2024 14:52-0400 Diastolic blood pressure 70 mm[Hg] Georgia Lino MD Work Phone: [facility] 08-19-2024 14:52-0400 Systolic blood pressure 126 mm[Hg] Georgia Lino MD Work Phone: [facility] 08-11-2024 10:14-0400 Body mass index (BMI) [Ratio] 32.12 kg/m2 Kahlil Ramsey MD Work Phone: [facility] 08-11-2024 10:14-0400 Body weight 77.11 kg Kahlil Ramsey MD Work Phone: [facility] 08-11-2024 10:14-0400 Diastolic blood pressure 76 mm[Hg] Kahlil Ramsey MD Work Phone: [facility] 08-11-2024 10:14-0400 Systolic blood pressure 122 mm[Hg] Kahlil Ramsey MD Work Phone: [facility] 08-07-2024 22:15-0400 Diastolic blood pressure 80 mm[Hg] No Primary Care Physician [facility] 08-07-2024 22:15-0400 Heart rate 67 /min No Primary Care Physician [facility] 08-07-2024 22:15-0400 SaO2% (BldA) [Mass fraction] 97 % No Primary Care Physician [facility] 08-07-2024 22:15-0400 Systolic blood pressure 122 mm[Hg] No Primary Care Physician [facility] 08-07-2024 20:39-0400 Respiratory rate 16 /min No Primary Care Physician [facility] 08-07-2024 19:45-0400 Body temperature 98.8 [degF] No Primary Care Physician [facility] 08-07-2024 16:50-0400 Body height 154.94 cm No Primary Care Physician [facility] 08-07-2024 16:50-0400 Body mass index (BMI) [Ratio] 31.1 kg/m2 No Primary Care Physician [facility] 08-07-2024 16:50-0400 Body weight 74.84 kg No Primary Care Physician [facility] 07-29-2024 10:29-0400 Body mass index (BMI) [Ratio] 31.29 kg/m2 Georgia Lino MD Work Phone: [facility] 07-29-2024 10:29-0400 Body weight 75.12 kg Georgia Lino MD Work Phone: [facility] 07-29-2024 10:29-0400 Diastolic blood pressure 62 mm[Hg] Georgia Lino MD Work Phone: [facility] 07-29-2024 10:29-0400 Systolic blood pressure 120 mm[Hg] Georgia Lino MD Work Phone: [facility] 07-15-2024 10:10-0400 Heart rate 95 /min No Primary Care Physician [facility] 07-15-2024 10:10-0400 SaO2% (BldA) [Mass fraction] 98 % No Primary Care Physician [facility] 07-15-2024 09:04-0400 Body temperature 97 [degF] No Primary Care Physician [facility] 07-15-2024 09:04-0400 Diastolic blood pressure 76 mm[Hg] No Primary Care Physician [facility] 07-15-2024 09:04-0400 Systolic blood pressure 124 mm[Hg] No Primary Care Physician [facility] 07-15-2024 09:02-0400 Body height 156.21 cm No Primary Care Physician [facility] 07-15-2024 09:02-0400 Body mass index (BMI) [Ratio] 30 kg/m2 No Primary Care Physician [facility] 07-15-2024 09:02-0400 Body weight 73.4 kg No Primary Care Physician [facility] 07-14-2024 15:15-0400 Heart rate 95 /min No Primary Care Physician [facility] 07-14-2024 15:15-0400 SaO2% (BldA) [Mass fraction] 98 % No Primary Care Physician [facility] 07-14-2024 14:44-0400 Diastolic blood pressure 84 mm[Hg] No Primary Care Physician [facility] 07-14-2024 14:44-0400 Systolic blood pressure 129 mm[Hg] No Primary Care Physician [facility] 07-14-2024 14:32-0400 Body height 156.21 cm No Primary Care Physician [facility] 07-14-2024 14:32-0400 Body mass index (BMI) [Ratio] 29.9 kg/m2 No Primary Care Physician [facility] 07-14-2024 14:32-0400 Body weight 73.2 kg No Primary Care Physician [facility] 07-14-2024 12:57-0400 Body mass index (BMI) [Ratio] 29.59 kg/m2 Amilcar Huitronmeri MOGUL OPERATOR.CNM Work Phone: [facility] 07-14-2024 12:57-0400 Body weight 72.21 kg Amilcar éMndez MOGUL OPERATOR.CNM Work Phone: [facility] 07-14-2024 12:57-0400 Diastolic blood pressure 70 mm[Hg] Amilcar Méndez MOGUL OPERATOR.CNM Work Phone: [facility] 07-14-2024 12:57-0400 Systolic blood pressure 110 mm[Hg] Amilcar Huitronmeri MOGUL OPERATOR.CNM Work Phone: [facility] 07-11-2024 14:57-0400 Body mass index (BMI) [Ratio] 29.56 kg/m2 Genesis Martinez MD Work Phone: [facility] 07-11-2024 14:57-0400 Body weight 72.12 kg Genesis Martinez MD Work Phone: [facility] 07-11-2024 14:57-0400 Diastolic blood pressure 64 mm[Hg] Genesis Martinez MD Work Phone: [facility] 07-11-2024 14:57-0400 Systolic blood pressure 118 mm[Hg] Genesis Martinez MD Work Phone: [facility] 07-07-2024 16:07-0400 Body mass index (BMI) [Ratio] 29.74 kg/m2 Georgia Lino MD Work Phone: [facility] 07-07-2024 16:07-0400 Body weight 72.58 kg Georgia Lino MD Work Phone: [facility] 07-07-2024 16:07-0400 Diastolic blood pressure 80 mm[Hg] Georgia Lino MD Work Phone: [facility] 07-07-2024 16:07-0400 Systolic blood pressure 122 mm[Hg] Georgia Lino MD Work Phone: [facility] 06-16-2024 10:25-0400 Diastolic blood pressure 64 mm[Hg] No Primary Care Physician [facility] 06-16-2024 10:25-0400 Heart rate 96 /min No Primary Care Physician [facility] 06-16-2024 10:25-0400 SaO2% (BldA) [Mass fraction] 100 % No Primary Care Physician [facility] 06-16-2024 10:25-0400 Systolic blood pressure 117 mm[Hg] No Primary Care Physician [facility] 06-16-2024 00:39-0400 Body height 154.94 cm No Primary Care Physician [facility] 06-16-2024 00:39-0400 Body mass index (BMI) [Ratio] 29.8 kg/m2 No Primary Care Physician [facility] 06-16-2024 00:39-0400 Body weight 71.66 kg No Primary Care Physician [facility] 06-15-2024 23:26-0400 Diastolic blood pressure 86 mm[Hg] No Primary Care Physician [facility] 06-15-2024 23:26-0400 Heart rate 107 /min No Primary Care Physician [facility] 06-15-2024 23:26-0400 Systolic blood pressure 128 mm[Hg] No Primary Care Physician [facility] 06-15-2024 23:25-0400 Body temperature 99.9 [degF] No Primary Care Physician [facility] 06-15-2024 23:25-0400 Respiratory rate 16 /min No Primary Care Physician [facility] 06-15-2024 23:25-0400 SaO2% (BldA) [Mass fraction] 97 % No Primary Care Physician [facility] 06-15-2024 22:53-0400 Body temperature 98 [degF] No Primary Care Physician [facility] 06-15-2024 22:53-0400 Diastolic blood pressure 83 mm[Hg] No Primary Care Physician [facility] 06-15-2024 22:53-0400 Heart rate 100 /min No Primary Care Physician [facility] 06-15-2024 22:53-0400 Respiratory rate 18 /min No Primary Care Physician [facility] 06-15-2024 22:53-0400 SaO2% (BldA) [Mass fraction] 99 % No Primary Care Physician [facility] 06-15-2024 22:53-0400 Systolic blood pressure 123 mm[Hg] No Primary Care Physician [facility] 06-15-2024 19:56-0400 Body height 154.94 cm No Primary Care Physician [facility] 06-15-2024 19:56-0400 Body mass index (BMI) [Ratio] 30 kg/m2 No Primary Care Physician [facility] 06-15-2024 19:56-0400 Body weight 72.12 kg No Primary Care Physician [facility] 06-13-2024 13:23-0400 Body mass index (BMI) [Ratio] 29.52 kg/m2 Milly Singh MD Work Phone: [facility] 06-13-2024 13:23-0400 Body weight 72.03 kg Milly Singh MD Work Phone: [facility] 06-13-2024 13:23-0400 Diastolic blood pressure 76 mm[Hg] Milly Singh MD Work Phone: [facility] 06-13-2024 13:23-0400 Systolic blood pressure 120 mm[Hg] Milly Singh MD Work Phone: [facility] 06-04-2024 16:35-0400 Body mass index (BMI) [Ratio] 29 kg/m2 Amilcar Méndez APRN.CNM Work Phone: [facility] 06-04-2024 16:35-0400 Body weight 70.76 kg Amilcar Méndez APRN.CNM Work Phone: [facility] 06-04-2024 16:35-0400 Diastolic blood pressure 70 mm[Hg] Amilcar Méndez APRN.CNM Work Phone: [facility] 06-04-2024 16:35-0400 Systolic blood pressure 108 mm[Hg] Amilcar Méndez APRN.CNM Work Phone: [facility] 05-08-2024 09:54-0500 Body mass index (BMI) [Ratio] 27.51 kg/m2 Georgia Lino MD Work Phone: [facility] 05-08-2024 09:54-0500 Body weight 67.13 kg Georgia Lino MD Work Phone: [facility] 05-08-2024 09:54-0500 Diastolic blood pressure 62 mm[Hg] Georgia Lino MD Work Phone: [facility] 05-08-2024 09:54-0500 Systolic blood pressure 106 mm[Hg] Georgia Lino MD Work Phone: [facility] 05-02-2024 16:14-0500 Body mass index (BMI) [Ratio] 27.07 kg/m2 Milly Singh MD Work Phone: [facility] 05-02-2024 16:14-0500 Body weight 66.04 kg Milly Singh MD Work Phone: [facility] 05-02-2024 16:14-0500 Diastolic blood pressure 62 mm[Hg] Milly Singh MD Work Phone: [facility] 05-02-2024 16:14-0500 Systolic blood pressure 112 mm[Hg] Milly Singh MD Work Phone: [facility] 04-14-2024 10:19-0500 Body mass index (BMI) [Ratio] 25.84 kg/m2 Martha Santamaria APRN.CNM Work Phone: [facility] 04-14-2024 10:19-0500 Body weight 63.05 kg Martha Santamaria APRN.CNM Work Phone: [facility] 04-14-2024 10:19-0500 Diastolic blood pressure 70 mm[Hg] Martha Santamaria APRN.CNM Work Phone: [facility] 04-14-2024 10:19-0500 Systolic blood pressure 102 mm[Hg] Martha Rosalio GUTHRIE.CNM Work Phone: [facility] 04-08-2024 08:59-0500 Body mass index (BMI) [Ratio] 25.69 kg/m2 Ambreen Romero MD Work Phone: [facility] 04-08-2024 08:59-0500 Body weight 62.69 kg Ambreen Romero MD Work Phone: [facility] 04-08-2024 08:59-0500 Diastolic blood pressure 70 mm[Hg] Ambreen Romero MD Work Phone: [facility] 04-08-2024 08:59-0500 Systolic blood pressure 106 mm[Hg] Ambreen Romero MD Work Phone: [facility] 03-28-2024 09:35-0500 Body height 156.2 cm Jay Byrd MD Work Phone: [facility] 03-28-2024 09:35-0500 Body mass index (BMI) [Ratio] 24.7 kg/m2 Jay Byrd MD Work Phone: [facility] 03-28-2024 09:35-0500 Body weight 60.28 kg Jay Byrd MD Work Phone: [facility] 03-28-2024 09:35-0500 Diastolic blood pressure 71 mm[Hg] Jay Byrd MD Work Phone: [facility] 03-28-2024 09:35-0500 Heart rate 79 /min Jay Byrd MD Work Phone: [facility] 03-28-2024 09:35-0500 Systolic blood pressure 114 mm[Hg] Jay Byrd MD Work Phone: [facility] 03-24-2024 21:00-0500 Diastolic blood pressure 65 mm[Hg] No Primary Care Physician [facility] 03-24-2024 21:00-0500 Heart rate 66 /min No Primary Care Physician [facility] 03-24-2024 21:00-0500 Respiratory rate 16 /min No Primary Care Physician [facility] 03-24-2024 21:00-0500 SaO2% (BldA) [Mass fraction] 98 % No Primary Care Physician [facility] 03-24-2024 21:00-0500 Systolic blood pressure 124 mm[Hg] No Primary Care Physician [facility] 03-24-2024 17:41-0500 Body mass index (BMI) [Ratio] 25.9 kg/m2 No Primary Care Physician [facility] 03-24-2024 17:41-0500 Body temperature 97.7 [degF] No Primary Care Physician [facility] 03-24-2024 17:41-0500 Body weight 62.14 kg No Primary Care Physician [facility] 03-18-2024 13:28-0500 Body mass index (BMI) [Ratio] 26.02 kg/m2 Glendybraden Cardona MOGUL OPERATOR.PREPARED FOODS SUPERVISOR Work Phone: [facility] 03-18-2024 13:28-0500 Body temperature 98.29 [degF] Glendy Ever MOGUL OPERATOR.PREPARED FOODS SUPERVISOR Work Phone: [facility] 03-18-2024 13:28-0500 Body weight 63.5 kg Glendy Ever MOGUL OPERATOR.PREPARED FOODS SUPERVISOR Work Phone: [facility] 03-18-2024 13:28-0500 Diastolic blood pressure 83 mm[Hg] Glendy Ball MOGUL OPERATOR.PREPARED FOODS SUPERVISOR Work Phone: [facility] 03-18-2024 13:28-0500 Heart rate 84 /min Glendy Ball MOGUL OPERATOR.PREPARED FOODS SUPERVISOR Work Phone: [facility] 03-18-2024 13:28-0500 Respiratory rate 18 /min Glendy Ball MOGUL OPERATOR.PREPARED FOODS SUPERVISOR Work Phone: [facility] 03-18-2024 13:28-0500 SaO2% (BldA) [Mass fraction] 98 % Glendy Ball MOGUL OPERATOR.PREPARED FOODS SUPERVISOR Work Phone: [facility] 03-18-2024 13:28-0500 Systolic blood pressure 121 mm[Hg] Glendy Ball MOGUL OPERATOR.PREPARED FOODS SUPERVISOR Work Phone: [facility] 03-17-2024 08:28-0500 Body mass index (BMI) [Ratio] 26.25 kg/m2 Milly Singh MD Work Phone: [facility] 03-17-2024 08:28-0500 Body weight 64.05 kg Milly Singh MD Work Phone: [facility] 03-17-2024 08:28-0500 Diastolic blood pressure 64 mm[Hg] Milly Singh MD Work Phone: [facility] 03-17-2024 08:28-0500 Systolic blood pressure 110 mm[Hg] Milly Singh MD Work Phone: [facility] 03-06-2024 13:05-0500 Body mass index (BMI) [Ratio] 26.1 kg/m2 Georgia Lino MD Work Phone: [facility] 03-06-2024 13:05-0500 Body weight 63.69 kg Georgia Lion MD Work Phone: [facility] 03-06-2024 13:05-0500 Diastolic blood pressure 78 mm[Hg] Georgia Lino MD Work Phone: [facility] 03-06-2024 13:05-0500 Systolic blood pressure 110 mm[Hg] Georgia Lino MD Work Phone: [facility] 02-18-2024 08:30-0500 Body mass index (BMI) [Ratio] 25.47 kg/m2 Martha Santamaria APRN.CNM Work Phone: [facility] 02-18-2024 08:30-0500 Body weight 62.14 kg Martha Santamaria APRN.CNM Work Phone: [facility] 02-18-2024 08:30-0500 Diastolic blood pressure 74 mm[Hg] Martha Santamaria APRN.CNM Work Phone: [facility] 02-18-2024 08:30-0500 Systolic blood pressure 116 mm[Hg] Martha Santamaria APRN.CNM Work Phone: [facility] 01-14-2024 08:23-0500 Body mass index (BMI) [Ratio] 25.76 kg/m2 Angie Swayzee MOGUL OPERATOR.PREPARED FOODS SUPERVISOR Work Phone: [facility] 01-14-2024 08:23-0500 Body weight 62.87 kg Angie Bhargavi MOGUL OPERATOR.PREPARED FOODS SUPERVISOR Work Phone: [facility] 01-14-2024 08:23-0500 Diastolic blood pressure 74 mm[Hg] Angie Bhargavi MOGUL OPERATOR.PREPARED FOODS SUPERVISOR Work Phone: [facility] 01-14-2024 08:23-0500 Respiratory rate 16 /min Angie Swayzee MOGUL OPERATOR.PREPARED FOODS SUPERVISOR Work Phone: [facility] 01-14-2024 08:23-0500 Systolic blood pressure 126 mm[Hg] Angie Bhargavi MOGUL OPERATOR.PREPARED FOODS SUPERVISOR Work Phone: [facility] 12-24-2023 08:32-0400 Body height 156.2 cm Jay Byrd MD Work Phone: [facility] 12-24-2023 08:32-0400 Body mass index (BMI) [Ratio] 25.41 kg/m2 Jay Byrd MD Work Phone: [facility] 12-24-2023 08:32-0400 Body weight 62.01 kg Jay Byrd MD Work Phone: [facility] 12-24-2023 08:32-0400 Diastolic blood pressure 84 mm[Hg] Jay Byrd MD Work Phone: [facility] 12-24-2023 08:32-0400 Heart rate 99 /min Jay Byrd MD Work Phone: [facility] 12-24-2023 08:32-0400 Systolic blood pressure 134 mm[Hg] Jay Byrd MD Work Phone: [facility] 07-06-2023 11:32-0400 Body temperature 97.6 [degF] Dr. Kayleen Mckay Work Phone: [facility] 07-06-2023 11:32-0400 Diastolic blood pressure 78 mm[Hg] Dr. Kayleen Mckay Work Phone: 0(978)[phone] [place] [address] 07-06-2023 11:32-0400 Heart rate 64 /min Dr. Kayleen Mckay Work Phone: 9(501)[phone] [place] [address] 07-06-2023 11:32-0400 Respiratory rate 18 /min Dr. Kayleen Mckay Work Phone: 0(215)[phone] [place] [address] 07-06-2023 11:32-0400 SaO2% (BldA) [Mass fraction] 99 % Dr. Kayleen Mckay Work Phone: 3(725)[phone] [place] [address] 07-06-2023 11:32-0400 Systolic blood pressure 118 mm[Hg] Dr. Kayleen Mckay Work Phone: 9(412)[phone] [place] [address] 07-06-2023 10:32-0400 Body height 154.[address] Kayleen Mckay Work Phone: 7(697)[phone] [place] [address] 07-06-2023 10:32-0400 Body mass index (BMI) [Ratio] 25.8 kg/m2 Dr. Kayleen Mckay Work Phone: 0(546)[phone] [place] [address] 07-06-2023 10:32-0400 Body weight [address] Kayleen Mckay Work Phone: 9(956)[phone] [place] [address] 06-19-2023 12:18-0400 Body temperature 98.3 [degF] Dr. Kayleen Mckay Work Phone: 1(666)[phone] [place] [address] 06-19-2023 12:18-0400 Diastolic blood pressure 70 mm[Hg] Dr. Kayleen Mckay Work Phone: 8(325)167-299400 [place] [address] 06-19-2023 12:18-0400 Heart rate 86 /min Dr. Kayleen Mckay Work Phone: 1(970)[phone] [place] [address] 06-19-2023 12:18-0400 Respiratory rate 12 /min Dr. Kayleen Mckay Work Phone: 7(858)[phone] [place] [address] 06-19-2023 12:18-0400 SaO2% (BldA) [Mass fraction] 99 % Dr. Kayleen Mckay Work Phone: 8(605)[phone] [place] [address] 06-19-2023 12:18-0400 Systolic blood pressure 116 mm[Hg] Dr. Kayleen Mckay Work Phone: [facility] 04-14-2023 12:52-0500 Body temperature 98.4 [degF] Michelet Barreto MD Work Phone: [facility] 04-14-2023 12:52-0500 Body weight 64.86 kg Michelet Barreto MD Work Phone: [facility] 04-14-2023 12:52-0500 Diastolic blood pressure 87 mm[Hg] Michelet Barreto MD Work Phone: [facility] 04-14-2023 12:52-0500 Heart rate 88 /min Michelet Barreto MD Work Phone: [facility] 04-14-2023 12:52-0500 Respiratory rate 18 /min Michelet Barreto MD Work Phone: [facility] 04-14-2023 12:52-0500 SaO2% (BldA) [Mass fraction] 99 % Michelet Barreto MD Work Phone: [facility] 04-14-2023 12:52-0500 Systolic blood pressure 138 mm[Hg] Michelet Barreto MD Work Phone: [facility] 10-22-2022 20:18-0400 Diastolic blood pressure 65 mm[Hg] Dr. Kayleen Mckay Work Phone: [facility] 10-22-2022 20:18-0400 Heart rate 72 /min Dr. Kayleen Mckay Work Phone: [facility] 10-22-2022 20:18-0400 Respiratory rate 18 /min Dr. Kayleen Mckay Work Phone: [facility] 10-22-2022 20:18-0400 SaO2% (BldA) [Mass fraction] 100 % Dr. Kayleen Mckay Work Phone: [facility] 10-22-2022 20:18-0400 Systolic blood pressure 116 mm[Hg] Dr. Kayleen Mckay Work Phone: 9(117)628-603100 [place] [address] 10-22-2022 17:39-0400 Body height 154.[address] Kayleen Mckay Work Phone: 7(901)101-473700 [place] [address] 10-22-2022 17:39-0400 Body mass index (BMI) [Ratio] 27.6 kg/m2 Dr. Kayleen Mckay Work Phone: 7(442)556-692000 [place] [address] 10-22-2022 17:39-0400 Body temperature 98.6 [degF] Dr. Kayleen Mckay Work Phone: 3(413)256-058000 [place] [address] 10-22-2022 17:39-0400 Body weight 66.[address] Kayleen Mckay Work Phone: 9(153)715-883700 [place] [address] 09-14-2022 12:18-0400 Diastolic blood pressure 64 mm[Hg] Dr. Kayleen Mckay Work Phone: 5(357)886-282100 [place] [address] 09-14-2022 12:18-0400 Systolic blood pressure 128 mm[Hg] Dr. Kayleen Mckay Work Phone: 4(799)932-128400 [place] [address] 09-14-2022 12:16-0400 Body temperature 98 [degF] Dr. Kayleen Mckay Work Phone: 6(725)911-454200 [place] [address] 09-14-2022 12:16-0400 Heart rate 100 /min Dr. Kayleen Mckay Work Phone: 2(224)901-165000 [place] [address] 09-14-2022 12:16-0400 Respiratory rate 12 /min Dr. Kayleen Mckay Work Phone: 0(320)817-030400 [place] [address] 09-14-2022 12:16-0400 SaO2% (BldA) [Mass fraction] 98 % Dr. Kayleen Mckay Work Phone: 5(517)651-044500 [place] [address] 03-19-2022 10:15-0500 Body temperature 97.5 [degF] Dr. Kayleen Mckay Work Phone: 1(434)042-621400 [place] [address] 03-19-2022 10:15-0500 Diastolic blood pressure 70 mm[Hg] Dr. Kayleen Mckay Work Phone: 0(310)754-539000 [place] [address] 03-19-2022 10:15-0500 Heart rate 109 /min Dr. Kayleen Mckay Work Phone: [facility] 03-19-2022 10:15-0500 Respiratory rate 15 /min Dr. Kayleen Mckay Work Phone: [facility] 03-19-2022 10:15-0500 SaO2% (BldA) [Mass fraction] 98 % Dr. Kayleen Mckay Work Phone: [facility] 03-19-2022 10:15-0500 Systolic blood pressure 108 mm[Hg] Dr. Kayleen Mckay Work Phone: 7(835)260-790427 [place] [address] 03-16-2022 09:11-0500 Body temperature 99.4 [degF] Dr. Kayleen Mckay Work Phone: 8(857)472-240127 [place] [address] 03-16-2022 09:11-0500 Diastolic blood pressure 78 mm[Hg] Dr. Kayleen Mckay Work Phone: 1(625)721-779327 [place] [address] 03-16-2022 09:11-0500 Heart rate 113 /min Dr. Kayleen Mckay Work Phone: 9(596)726-750327 [place] [address] 03-16-2022 09:11-0500 Respiratory rate 16 /min Dr. Kayleen Mckay Work Phone: 4(970)629-660327 [place] [address] 03-16-2022 09:11-0500 SaO2% (BldA) [Mass fraction] 94 % Dr. Kayleen Mckay Work Phone: 7(323)312-635427 [place] [address] 03-16-2022 09:11-0500 Systolic blood pressure 128 mm[Hg] Dr. Kayleen Mckay Work Phone: [facility] 12-07-2021 13:34-0400 Body temperature 98.4 [degF] Dr. Kayleen Mckay Work Phone: [facility] Work Phone: 12-07-2021 13:34-0400 Diastolic blood pressure 74 mm[Hg] Dr. Kayleen Mckay Work Phone: [facility] Work Phone: 12-07-2021 13:34-0400 Heart rate 83 /min Dr. Kayleen Mckay Work Phone: [facility] Work Phone: 12-07-2021 13:34-0400 Respiratory rate 14 /min Dr. Kayleen Mckay Work Phone: [facility] Work Phone: 12-07-2021 13:34-0400 SaO2% (BldA) [Mass fraction] 99 % Dr. Kayleen Mckay Work Phone: [facility] Work Phone: 12-07-2021 13:34-0400 Systolic blood pressure 114 mm[Hg] Dr. Kayleen Mckay Work Phone: [facility] Work Phone: 09-26-2021 13:19-0400 Body temperature 98.4 [degF] Dr. Kayleen Mckay Work Phone: [facility] Work Phone: 09-26-2021 13:19-0400 Diastolic blood pressure 74 mm[Hg] Dr. Kayleen Mckay Work Phone: [facility] Work Phone: 09-26-2021 13:19-0400 Heart rate 96 /min Dr. Kayleen Mckay Work Phone: [facility] Work Phone: 09-26-2021 13:19-0400 Respiratory rate 14 /min Dr. Kayleen Mckay Work Phone: [facility] Work Phone: 09-26-2021 13:19-0400 SaO2% (BldA) [Mass fraction] 99 % Dr. Kayleen Mckay Work Phone: [facility] Work Phone: 09-26-2021 13:19-0400 Systolic blood pressure 120 mm[Hg] Dr. Kayleen Mckay Work Phone: [facility] Work Phone: 05-05-2021 08:34-0500 Body height 154.[address] Kayleen Mckay Work Phone: [facility] Work Phone: 05-05-2021 08:34-0500 Body mass index (BMI) [Percentile] Per age and sex 86.8 % Dr. Kayleen Mckay Work Phone: [facility] Work Phone: 05-05-2021 08:34-0500 Body mass index (BMI) [Ratio] 26.6 kg/m2 Dr. Kayleen Mckay Work Phone: [facility] Work Phone: 05-05-2021 08:34-0500 Body weight 63.[address] Kayleen Mckay Work Phone: [facility] Work Phone: 05-05-2021 07:34-0500 Body height 154.[address] Kayleen Mckay Work Phone: [facility] Work Phone: 05-05-2021 07:34-0500 Body mass index (BMI) [Ratio] 26.6 kg/m2 Dr. Kayleen Mckay Work Phone: [facility] Work Phone: 05-05-2021 07:34-0500 Body weight 63.[address] Kayleen Mckay Work Phone: [facility] Work Phone: 02-08-2021 10:20-0500 Body temperature 98.1 [degF] Dr. Kayleen Mckay Work Phone: [facility] Work Phone: 02-08-2021 10:20-0500 Diastolic blood pressure 82 mm[Hg] Dr. Kayleen Mckay Work Phone: [facility] Work Phone: 02-08-2021 10:20-0500 Heart rate 90 /min Dr. Kayleen Mckay Work Phone: [facility] Work Phone: 02-08-2021 10:20-0500 Respiratory rate 16 /min Dr. Kayleen Mckay Work Phone: [facility] Work Phone: 02-08-2021 10:20-0500 SaO2% (BldA) [Mass fraction] 99 % Dr. Kayleen Mckay Work Phone: [facility] Work Phone: 02-08-2021 10:20-0500 Systolic blood pressure 124 mm[Hg] Dr. Kayleen Mckay Work Phone: [facility] Work Phone: Encounters Encounter Date Encounter Type Care Provider Facility Start: 11-14-2024 End: 11-14-2024 Office outpatient visit 15 minutes Georgia Lino MD Work Phone: OB/Gynecology Comment on above: Encounter for lakshmi jean baptiste prescription of contraceptive pills (Primary Dx) Start: 11-14-2024 End: 11-14-2024 ambulatory GEORGIA LINO Facility:[facility] Start: 11-12-2024 End: 11-12-2024 Patient encounter procedure Flaquita Romero APRN.CNP Work Phone: [facility] [place] [facility] Comment on above: LLQ abdominal pain ( Primary Dx) Start: 11-12-2024 End: 11-13-2024 ambulatory Georgia Lino MD Work Phone: OB/Gynecology Comment on above: Good morning Start: 10-24-2024 End: 10-24-2024 Telephone encounter Genesis Martinez MD Work Phone: OB/Gynecology Comment on above: Patient Update Start: 10-21-2024 End: 10-21-2024 E-mail encounter from caregiver Genesis Martinez MD Work Phone: OB/Gynecology Start: 10-21-2024 End: 10-21-2024 Patient encounter procedure Genesis Martinez MD Work Phone: OB/Gynecology Comment on above: Abnormal uterine ble eding (AUB) (Primary Dx); Episode of heavy vaginal bleeding; Intractable tension-type headache, unspecified chronicity pattern Start: 10-21-2024 End: 10-21-2024 ambulatory Genesis Martinez MD Work Phone: OB/Gynecology Comment on above: headache Start: 10-20-2024 End: 10-20-2024 ambulatory Genesis Martinez MD Work Phone: OB/Gynecology Comment on above: Question Start: 10-13-2024 End: 10-13-2024 Patient encounter procedure Angie Bhargavi MOGUL OPERATOR.PREPARED FOODS SUPERVISOR Work Phone: OB/Gynecology Comment on above: Episode of heavy vag inal bleeding (Primary Dx) Start: 10-13-2024 End: 10-13-2024 ambulatory [facility] Facility:[facility] Start: 10-06-2024 End: 10-06-2024 Patient encounter procedure Amilcar Elanameri MOGUL OPERATOR.CNM Work Phone: OB/Gynecology Comment on above: Migraine without sta tus migrainosus, not intractable, unspecified migraine type (Primary Dx); Lactating mother (HCC) Start: 10-06-2024 End: 10-06-2024 [facility] Facility:[facility] Start: 09-29-2024 End: 09-29-2024 Patient encounter procedure Naren Hosea MOGUL OPERATOR.PREPARED FOODS SUPERVISOR Work Phone: OB/Gynecology Comment on above: care and examination (HCC) (Primary Dx); History of ; Encounter for counseling regarding contraception Start: 09-29-2024 End: 09-29-2024 [facility] Facility:[facility] Start: 09-24-2024 End: 09-24-2024 ambulatory [facility] Facility:[facility] Start: 09-24-2024 End: 09-24-2024 Patient encounter procedure Moise Tanhu MOGUL OPERATOR.PREPARED FOODS SUPERVISOR Work Phone: Psychiatry Comment on above: No-show for appointm ent (Primary Dx) Start: 09-24-2024 End: 09-24-2024 Telemedicine consultation with patient Moise Meade MOGUL OPERATOR.PREPARED FOODS SUPERVISOR Work Phone: Psychiatry Start: 09-17-2024 End: 09-17-2024 ambulatory [facility] Facility:[facility] Start: 09-17-2024 End: 09-17-2024 Patient encounter procedure Moise Meade APRN.PREPARED FOODS SUPERVISOR Work Phone: Psychiatry Comment on above: No-show for appointm ent (Primary Dx); History of depression; History of anxiety Start: 09-17-2024 End: 09-17-2024 Telemedicine consultation with patient Moise Meade APRN.PREPARED FOODS SUPERVISOR Work Phone: Psychiatry Start: 09-11-2024 End: 09-11-2024 Patient encounter procedure Milly Singh MD Work Phone: OB/Gynecology Comment on above: S/P section (Primary Dx); History of depression; History of anxiety; state (HCC) Start: 09-11-2024 End: 09-11-2024 ambulatory [facility] Facility:[facility] Start: 09-02-2024 End: 09-02-2024 Patient encounter procedure Georgia Lino MD Work Phone: OB/Gynecology Comment on above: pain (HCC ) (Primary Dx); care and examination (HCC) Start: 09-02-2024 End: 09-02-2024 ambulatory GEORGIA LINO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 07/31/2024 (Approximate) Start: 07-29-2024 End: 07-29-2024 Patient encounter procedure 07/29/2024 11:10 AM EDT Routine Office Visit OB/Gynecology [address] [place] [id number] Georgia Lino MD [address] [place] [address] OB OB/Gynecology Comment on above: OB Start: 07-25-2024 End: 07-25-2024 Patient encounter procedure 07/25/2024 3:45 PM EDT Routine Office Visit OB/Gynecology [address] [place] [address] Naren Jc APRN.PREPARED FOODS SUPERVISOR [address] [place] [address] NABIL OB/Gynecology Comment on above: NABIL Start: 07-22-2024 End: 07-22-2024 Patient encounter procedure 07/22/2024 9:50 AM EDT Routine Office Visit OB/Gynecology [address] [place] [address] Georgia Lino MD [address] [place] [address] OB OB/Gynecology Comment on above: OB Start: 07-15-2024 Nonstress test [facility] Start: 07-15-2024 Obstetric monitoring [facility] Start: 07-15-2024 [facility] Start: 07-15-2024 Vital signs measurements [facility] Start: 07-15-2024 Patient discharge [facility] Start: 07-14-2024 Nonstress test [facility] Start: 07-14-2024 Obstetric monitoring [facility] Start: 07-14-2024 End: 07-14-2024 [facility] Start: 07-14-2024 Vital signs measurements [facility] Start: 07-14-2024 Bacteria identified in Urine by Culture Urine Culture [facility] Start: 07-14-2024 Patient discharge [facility] Start: 07-11-2024 End: 07-11-2024 Patient encounter procedure 07/11/2024 2:40 PM EDT Routine Office Visit OB/Gynecology [address] [place] [address] Genesis Martinez MD [address] [place] [address] Ob OB/Gynecology Comment on above: Ob Start: 07-08-2024 End: 07-08-2024 Patient encounter procedure 07/08/2024 9:00 AM EDT Appointment OB/Gynecology [address] [place] [address] L&[place] [address] [place] [address] [employer] phone consult OB/Gynecology Comment on above: [employer] phone consult Start: 06-27-2024 End: 06-27-2024 Patient encounter procedure 06/27/2024 2:30 PM EDT Routine Office Visit OB/Gynecology [address] [place] [address] Martha Santamaria APRN.CN [address] [place] [address] OB OB/Gynecology Comment on above: OB Start: 06-15-2024 [facility] Start: 06-15-2024 [facility] Start: 06-15-2024 Iv infusion hydration initial 31 min-1 hour HYDRATION IV INFUSION INIT [facility] Start: 06-13-2024 End: 06-13-2024 Patient encounter procedure 06/13/2024 1:30 PM EDT Routine Office Visit OB/Gynecology [address] [place] [address] Milly Singh MD [address] [place] [address] OB Routine OB/Gynecology Comment on above: OB Routine Start: 06-13-2024 End: 06-13-2024 ambulatory 06/13/2024 1:15 PM EDT Results Only [place] [facility] [address] [place] [address] Glucose test and LABs [facility] Comment on above: Glucose test and LABs Start: 05-13-2024 End: 05-13-2024 Patient encounter procedure 05/13/2024 1:30 PM EDT Routine Office Visit OB/Gynecology [address] [place] [address] Georgia Lino MD [address] [place] [address] OB Routine OB/Gynecology Comment on above: OB Routine Start: 05-08-2024 End: 08-07-2024 ANEMIA REFLEX PANEL ANEMIA REFLEX PANEL Lab Routine 23 weeks gestation of Encounter for supervision of normal first in second trimester PVC's (premature ventricular contractions) Depression with anxiety Rh negative state in antepartum period Expected: 05/08/2024, Expires: 08/07/2024 [facility] Comment on above: Expected: 05/08/2024, Expires: Start: 05-08-2024 End: 05-08-2025 GESTATIONAL GLUCOSE SCREEN, 1-HOUR, 50 GRAM, NON-FASTING GESTATIONAL GLUCOSE SCREEN, 1-HOUR, 50 GRAM, NON-FASTING Lab Routine Screening for diabetes mellitus 23 weeks gestation of Encounter for supervision of normal first in second trimester PVC's (premature ventricular contractions) Depression with anxiety Rh negative state in antepartum period Expected: 05/08/2024, Expires: 05/08/2025 [facility] Work Phone: Comment on above: Expected: 05/08/2024, Expires: Start: 05-08-2024 End: 05-08-2025 SYPHILIS TREPONEMAL W/REFLEX SYPHILIS TREPONEMAL W/REFLEX Lab Routine 23 weeks gestation of Encounter for supervision of normal first in second trimester PVC's (premature ventricular contractions) Depression with anxiety Rh negative state in antepartum period Expected: 05/08/2024, Expires: 05/08/2025 [facility] Comment on above: Expected: 05/08/2024, Expires: Start: 05-08-2024 End: 08-07-2024 TYPE + SCREEN TYPE + SCREEN Blood Bank Routine 23 weeks gestation of Encounter for supervision of normal first in second trimester PVC's (premature ventricular contractions) Depression with anxiety Rh negative state in antepartum period Expected: 05/08/2024, Expires: 08/07/2024 [facility] Comment on above: Expected: 05/08/2024, Expires: Start: 05-08-2024 End: 05-08-2024 Patient encounter procedure 05/08/2024 10:10 AM EST Routine Office Visit OB/Gynecology [address] [place] [address] Georgia Lino MD [address] [place] [address] OB Routine OB/Gynecology Comment on above: OB Routine Start: 04-14-2024 End: 04-14-2024 Patient encounter procedure M[facility] al [facility] Comment on above: Anatomy OB Start: 04-08-2024 End: 04-08-2024 Patient encounter procedure 04/08/2024 9:00 AM EST Routine Office Visit OB/Gynecology [address] [place] [address] Ambreen Romero MD [address] [place] [address] OB-N/V OB/Gynecology Comment on above: OB-N/V Start: 03-28-2024 End: 03-28-2024 Patient encounter procedure 03/28/2024 9:15 AM EST Office Visit Cardiology [address] [place] [address] Jay Byrd MD [address] [facility] [address] [place] [address] 3 MONTH FOLLOW UP Cardiology Comment on above: 3 MONTH FOLLOW UP Start: 03-28-2024 End: 03-28-2024 Follow-up encounter 03/28/2024 8:45 AM EST Results Only Cardiology [address] [id number] 3 MONTH FOLLOW UP Cardiology Comment on above: 3 MONTH FOLLOW UP Start: 03-24-2024 [facility] Start: 03-24-2024 Enteric precautions [facility] Start: 03-17-2024 End: 03-17-2024 Patient encounter procedure 03/17/2024 8:30 AM EST Routine Office Visit OB/Gynecology [address] [place] [address] Milly Singh MD [address] [place] [address] OB OB/Gynecology Comment on above: OB Start: 02-18-2024 End: 05-19-2024 Chromosome 21 trisomy [Presence] in Blood or Tissue by Cytogenetics [facility] Work Phone: Comment on above: Expected: 02/18/2024, Expires: 5 Start: 02-18-2024 End: 02-17-2025 OBSTETRIC ULTRASOUND [facility] OBSTETRIC ULTRASOUND [facility] Anc Imaging Routine 12 weeks gestation of Encounter for supervision of normal first in second trimester Expected: 02/18/2024, Expires: 02/17/2025 [facility] Work Phone: Comment on above: Expected: 02/18/2024, Expires: 5 Start: 02-18-2024 End: 02-18-2024 Patient encounter procedure 02/18/2024 10:20 AM EST Routine Office Visit OB/Gynecology [address] [place] [address] Genesis Martinez MD [address] [place] [address] ob lmp 11/22 OB/Gynecology Comment on above: ob lmp 11/22 Start: 02-18-2024 End: 02-18-2024 Patient encounter procedure Maternal Fet al Medicine Comment on above: Nuchal Est New OB/lmp11/22 Start: 02-18-2024 End: 02-18-2024 ambulatory [facility] Comment on above: Lab Start: 01-14-2024 End: 04-14-2024 ANEMIA REFLEX PANEL ANEMIA REFLEX PANEL Lab Routine 7 weeks gestation of Expected: 01/14/2024, Expires: 04/14/2024 [facility] Work Phone: Comment on above: Expected: 01/14/2024, Expires: Start: 01-14-2024 End: 04-14-2024 Hemoglobin A1c in Blood HEMOGLOBIN A1C Lab Routine 7 weeks gestation of Expected: 01/14/2024, Expires: 04/14/2024 [facility] Comment on above: Expected: 01/14/2024, Expires: Start: 01-14-2024 End: 04-14-2024 Hepatitis B virus surface Ag [Presence] in Serum HEPATITIS B SURFACE ANTIGEN Lab Routine 7 weeks gestation of Expected: 01/14/2024, Expires: 04/14/2024 [facility] Comment on above: Expected: 01/14/2024, Expires: Start: 01-14-2024 End: 04-14-2024 Hepatitis C virus Ab [Presence] in Serum HEPATITIS C ANTIBODY IA WITH CONFIRMATION Lab Routine 7 weeks gestation of Expected: 01/14/2024, Expires: 04/14/2024 [facility] Comment on above: Expected: 01/14/2024, Expires: Start: 01-14-2024 End: 04-14-2024 HIV 1+2 Ab [Presence] in Serum or Plasma by Immunoassay HIV 1/2 COMBO WITH REFLEX TO DIFFERENTIATION Lab Routine 7 weeks gestation of Expected: 01/14/2024, Expires: 04/14/2024 [facility] Comment on above: Expected: 01/14/2024, Expires: Start: 01-14-2024 End: 01-13-2025 NUCHAL TRANSLUCENCY WHI NUCHAL TRANSLUCENCY WHI Anc Imaging Routine 7 weeks gestation of Expected: 01/14/2024, Expires: 01/13/2025 [facility] Comment on above: Expected: 01/14/2024, Expires: Start: 01-14-2024 End: 04-14-2024 RUBELLA IGG ANTIBODY RUBELLA IGG ANTIBODY Lab Routine 7 weeks gestation of Expected: 01/14/2024, Expires: 04/14/2024 [facility] Comment on above: Expected: 01/14/2024, Expires: Start: 01-14-2024 End: 04-14-2024 SYPHILIS TREPONEMAL W/REFLEX SYPHILIS TREPONEMAL W/REFLEX Lab Routine 7 weeks gestation of Expected: 01/14/2024, Expires: 04/14/2024 [facility] Comment on above: Expected: 01/14/2024, Expires: Start: 01-14-2024 End: 04-14-2024 TYPE + SCREEN TYPE + SCREEN Blood Bank Routine 7 weeks gestation of Expected: 01/14/2024, Expires: 04/14/2024 [facility] Comment on above: Expected: 01/14/2024, Expires: Start: 12-24-2023 End: 03-24-2024 CBC panel - Blood by Automated count COMPLETE BLOOD COUNT Lab Routine PVC (premature ventricular contraction) Tachycardia Expected: 12/24/2023, Expires: 03/24/2024 [facility] Comment on above: Expected: 12/24/2023, Expires: Start: 12-24-2023 End: 03-24-2024 Comprehensive metabolic 2000 panel - Serum or Plasma COMPREHENSIVE METABOLIC PANEL Lab Routine PVC (premature ventricular contraction) Tachycardia Expected: 12/24/2023, Expires: 03/24/2024 [facility] Comment on above: Expected: 12/24/2023, Expires: Start: 12-24-2023 End: 03-24-2024 Thyrotropin [Units/volume] in Serum or Plasma THYROID STIMULATING HORMONE Lab Routine PVC (premature ventricular contraction) Tachycardia Expected: 12/24/2023, Expires: 03/24/2024 [facility] Comment on above: Expected: 12/24/2023, Expires: Start: 12-24-2023 End: 03-24-2024 Thyroxine (T4) free [Mass/volume] in Serum or Plasma T4 FREE/FREE THYROXINE Lab Routine PVC (premature ventricular contraction) Tachycardia Expected: 12/24/2023, Expires: 03/24/2024 [facility] Comment on above: Expected: 12/24/2023, Expires: Start: 12-24-2023 End: 03-24-2024 Triiodothyronine (T3) Free [Mass/volume] in Serum or Plasma T3, FREE Lab Routine PVC (premature ventricular contraction) Tachycardia Expected: 12/24/2023, Expires: 03/24/2024 [facility] Work Phone: Comment on above: Expected: 12/24/2023, Expires: Start: 12-24-2023 End: 12-24-2023 ambulatory 12/24/2023 7:45 AM EDT Results Only Cardiology [address] [place] [address] [facility] Comment on above: [facility] Start: 12-24-2023 End: 12-24-2023 Patient encounter procedure Cardiology Comment on above: [facility] Start: 11-04-2023 Covid-19 Vaccine ( season) Covid-19 Vaccine () [facility] Start: 11-04-2023 Covid-19 Vaccine () Covid-19 Vaccine () [facility] Start: 11-04-2023 Influenza vaccination Influenza Vaccine (#1) [facility] Start: 07-06-2023 [facility] Start: 2023 Screening for malignant neoplasm of cervix Cervical Cancer Screening [facility] Start: 03-05-2023 Depression Assessment Depression Assessment [facility] Start: 11-03-2022 Influenza vaccination Influenza Vaccine (#1) [facility] Start: 12-07-2021 Patient referral [facility] Work Phone: Start: 2020 Anxiety Screening Anxiety Screening [facility] Start: 2020 Depression Screening Depression Screening [facility] Start: 2020 GC (Gonorrhea) Screening (18-24) GC (Gonorrhea) Screening (18-24) [facility] Start: 2020 Hepatitis C screening Hepatitis C Screening [facility] Start: 2020 HIV screening HIV Screening [facility] Start: 2020 Screening for Chlamydia trachomatis Chlamydia Screening (18-) [facility] Start: 2018 Meningococcal B Vaccine (1 of 2 - Standard) Meningococcal B Vaccine (1 of 2 - Standard) [facility] Start: 2018 Meningococcal B Vaccine: Consider Based On Risk (1 of 2 - Patient Seeks Protection) Meningococcal B Vaccine: Consider Based On Risk (1 of 2 - Patient Seeks Protection) [facility] Start: 2017 HPV Vaccine (1 - 3-dose series) HPV Vaccine (1 - 3-dose series) [facility] Start: 2016 Peds To Adult Transition Annual Assessment Peds To Adult Transition Annual Assessment [facility] Start: 2014 Peds To Adult Transition Initial Discussion Peds To Adult Transition Initial Discussion [facility] Start: 2011 HPV Vaccine (1 - 2-dose series) HPV Vaccine (1 - 2-dose series) [facility] Start: 2002 Covid-19 Vaccine (#1) Covid-19 Vaccine (#1) [facility] Bacteria identified in Urine by Culture URINE CULTURE Microbiology Routine 7 weeks gestation of 01/14/2024 9:13 AM EST [facility] BACTERIAL VAGINOSIS NAAT BACTERI AL VAGINOSIS NAAT Lab Routine Vaginal discharge 07/14/2024 1:44 PM EDT [facility] IRENE/TRICHOMONAS NAAT IRENE /TRICHOMONAS NAAT Lab Routine Vaginal discharge 07/14/2024 1:44 PM EDT [facility] Chlamydia trachomatis+Neisseria gonorrhoeae DNA [Presence] in Unspecified specimen by RICHARD with probe detection GONORRHEA/CHLAMYDIA NAAT Lab Routine 7 weeks gestation of 01/14/2024 9:13 AM EST [facility] End: 11-12-2024 ECG COMPLETE ECG COMPLETE ECG Routine PVC's (premature ventricular contractions) 1 Occurrences starting 11/13/2023 until 11/12/2024 [facility] Work Phone: Comment on above: 1 Occurrences starting 11/13/2023 until 11/12/2024 End: 03-27-2025 ECG COMPLETE ECG COMPLETE ECG Routine EKG abnormalities 1 Occurrences starting 03/27/2024 until 03/27/2025 [facility] Work Phone: Comment on above: 1 Occurrences starting 03/27/2024 until 03/27/2025 Hemoglobin F [Presen ce] in Blood by Kleihauer-Betneelam method [facility] OUTSIDE VENDOR CARDI AC OUTPATIENT EXTENDED RHYTHM RECORDING (WITHOUT TELEMETRY) OUTSIDE VENDOR CARDIAC OUTPATIENT EXTENDED RHYTHM RECORDING (WITHOUT TELEMETRY) Holter Routine PVC (premature ventricular contraction) Tachycardia Ordered: 12/24/2023 [facility] Comment on above: Ordered: 12/24/2023 PAP TEST PAP TEST Lab Rou shar Screening for cervical cancer 7 weeks gestation of 01/14/2024 9:13 AM EST [facility] Patient Education [facility] Work Phone: Patient referral [facility] Work Phone: ROUTINE, GR OUP B STREPTOCOCCUS BY PCR ROUTINE, GROUP B STREPTOCOCCUS BY PCR Microbiology Routine Supervision of high risk in third trimester ([facility]) 37 weeks gestation of ([facility]) 08/11/2024 10:31 AM EDT [facility] UA DIP, URINE (POC) UA DIP, URIN E (POC) Lab Routine Low back pain during in third trimester ([facility]) Ordered: 07/14/2024 [facility] Work Phone: Comment on above: Ordered: 07/14/2024 Urine culture [facility] URINE OB DIP B/O URINE OB DIP B/ O Lab Routine Supervision of high risk in third trimester ([facility]) 37 weeks gestation of ([facility]) Ordered: 08/11/2024 [facility] Work Phone: Comment on above: Ordered: 08/11/2024 End: 05-13-2024 XR Shoulder - left 3 Views XR SHOULDER GENERAL 3V OR MORE AP/TRUE AP/OTHER LEFT Radiology Routine Acute pain of left shoulder 1 Occurrences starting 04/14/2023 until 05/13/2024 [facility] Work Phone: Comment on above: 1 Occurrences starting 04/14/2023 until 05/13/2024 Immunizations Immunization Date Immunization Notes Care Provider [facility] 06-13-2024 RHO(D) immune globul in- IV or IM Milly Singh MD Work Phone: [facility] 04-14-2024 influenza virus vacc ine, unspecified formulation Georgia Lino MD Work Phone: [facility] 08-15-2018 meningococcal polysaccharide (groups A, C, Y and W-135) diphtheria toxoid conjugate vaccine (MCV4P) Georgia Lino MD Work Phone: [facility] 07-23-2015 meningococcal oligosaccharide (groups A, C, Y and W-135) diphtheria toxoid conjugate vaccine (MCV4O) Georgia Lino MD Work Phone: [facility] 07-23-2015 tetanus toxoid, redu ayaka diphtheria toxoid, and acellular pertussis vaccine, adsorbed Dr. Kayleen Mckay Work Phone: [facility] 2007 diphtheria, tetanus toxoids and acellular pertussis vaccine, unspecified formulation Georgia Lino MD Work Phone: [facility] 2007 hepatitis A vaccine, pediatric/adolescent dosage, 2 dose schedule Georgia Lino MD Work Phone: [facility] 2007 measles, mumps and rubella virus vaccine Dr. Kayleen Mckay Work Phone: [facility] 2007 poliovirus vaccine, inactivated Georgia Lino MD Work Phone: [facility] [address] Kayleen Mckay Work Phone: [facility] 2006 hepatitis A vaccine, pediatric/adolescent dosage, 2 dose schedule Georgia Lino MD Work Phone: [facility] 04-28-2004 pneumococcal conjuga te vaccine, 7 valent Georgia Lino MD Work Phone: [facility] 07-30-2003 diphtheria, tetanus toxoids and acellular pertussis vaccine, unspecified formulation Georgia Lino MD Work Phone: [facility] 07-30-2003 poliovirus vaccine, inactivated Georgia Lino MD Work Phone: [facility] 07-30-[address] Kayleen Mckay Work Phone: [facility] 05-01-2003 haemophilus influenz ae type b conjugate and Hepatitis B vaccine Dr. Kayleen Mckay Work Phone: [facility] 05-01-2003 haemophilus influenz ae type b vaccine, PRP-T conjugate Georgia Lino MD Work Phone: [facility] 05-01-2003 hepatitis B vaccine, pediatric or pediatric/adolescent dosage Georgia Lino MD Work Phone: [facility] 05-01-2003 measles, mumps and rubella virus vaccine Dr. Kayleen Mckay Work Phone: [facility] 2002 diphtheria, tetanus toxoids and acellular pertussis vaccine, unspecified formulation Georgia Lino MD Work Phone: [facility] 2002 haemophilus influenz ae type b vaccine, PRP-T conjugate Georgia Lino MD Work Phone: [facility] 2002 pneumococcal conjuga te vaccine, 7 valent Georgia Lino MD Work Phone: [facility] 2002 diphtheria, tetanus toxoids and acellular pertussis vaccine, unspecified formulation Georgia Lino MD Work Phone: [facility] 2002 haemophilus influenz ae type b vaccine, PRP-T conjugate Georgia Lino MD Work Phone: [facility] 2002 pneumococcal conjuga te vaccine, 7 valent Georgia Lino MD Work Phone: [facility] 2002 poliovirus vaccine, inactivated Georgia Lino MD Work Phone: [facility] 2002 diphtheria, tetanus toxoids and acellular pertussis vaccine, unspecified formulation Georgia Lino MD Work Phone: [facility] 2002 haemophilus influenz ae type b vaccine, PRP-T conjugate Georgia Lino MD Work Phone: [facility] 2002 hepatitis B vaccine, pediatric or pediatric/adolescent dosage Dr. Kayleen Mckay Work Phone: [facility] 2002 pneumococcal conjuga te vaccine, 7 valent Georgia Lion MD Work Phone: [facility] 2002 poliovirus vaccine, inactivated Georgia Lino MD Work Phone: [facility] 2002 hepatitis B vaccine, pediatric or pediatric/adolescent dosage Dr. Kayleen Mckay Work Phone: [facility] Payers Date Payer Category Payer Private Health Insurance [id number] 2023 Self-pay [id number] 2023 Private Health Insurance [id number] 2023 Private Health Insurance [id number] 2002 Unknown [id number] 2002 Unknown [id number] 2002 Unknown [id number] Private Health Insurance [facility] [id number] Private Health Insurance [id number] Unknown [id number] Unknown [id number] 62 Unknown [id number] 62 Unknown [id number] 62 Unknown [id number] 62 Unknown [id number] 62 Unknown [id number] 62 Unknown [id number] 62 Unknown [id number] 62 Unknown [id number] 62 Unknown [id number] 62 Unknown [id number] 62 Unknown [id number] 62 Unknown [id number] 62 Social History Date Type Detail Facility Start: 05-25-2021 End: 07-06-2023 Tobacco smoking status [facility] Unknown if ever smoked [facility] Start: 07-12-2020 Non-smoker [facility] Start: 2002 Sex Assigned At Female [facility] Start: 04-13-2011 End: 08-22-2024 Tobacco smoking status [facility] Never smoked tobacco [facility] Work Phone: Start: 04-13-2011 Tobacco use and exposure Smokeless tobacco non-user [facility] Work Phone: Start: 04-14-2023 Alcohol intake Not Asked [facility] Start: 04-14-2023 End: 12-24-2023 History of Social function [facility] Start: 04-14-2023 End: 12-24-2023 Tobacco use panel [facility] Start: 02-04-2012 National Score (1-100), lower number is lower risk Not on file [facility] Start: 2002 Sex Assigned At Not on file [facility] Start: 12-24-2023 End: 11-14-2024 Alcoholic beverage intake Lifetime non-drinker (finding) [facility] Start: 12-07-2023 [facility] Start: 01-09-2024 Gender identity Identifies as female gender (finding) [facility] Start: 01-09-2024 Sexual orientation Heterosexual (negrita gutierrez) [facility] The thought of chyna norton myself has occurred to me Never [facility] Start: 06-15-2024 End: 06-16-2024 Sex Female (finding) [facility] NEGATED: Highlighted row [facility] Goals Date Patient Goal Desired Activity /State Personal health goal Personal health goal Functional Status Date Assessment Result Facility 10-21-2024 Total score [AUDIT-C] 0 10/22/19 25 10:20 AM EDT Sahara Landis MA [facility] 07-17-2024 Are you deaf, or do you have serious difficulty hearing No 07/17/2024 1:27 PM EDT Ramona Baker RN No [facility] 07-17-2024 Are you blind, or do you have serious difficulty seeing, even when wearing glasses No 07/17/2024 1:27 PM EDT Ramona Baker RN [facility] 07-17-2024 Do you have serious difficulty walking or climbing stairs No 07/17/2024 1:27 PM EDT Ramona Baker RN No [facility] 07-17-2024 Do you have difficul ty dressing or bathing No 07/17/2024 1:27 PM EDT Ramona Baker, RN [facility] 07-17-2024 Because of a physica l, mental, or emotional condition, do you have difficulty doing errands alone such as visiting a physician's office or shopping No 07/17/2024 1:27 PM EDT Ramona Baker RN No [facility] Mental Status Date Assessment Result Facility 08-24-2024 Cognitive function Level Of Cons ciousness Awake;Alert;Appropriate;Fol lows Commands [facility] Work Phone: 08-24-2024 Cognitive function Arousable To Voice/Nam e [facility] Work Phone: 07-17-2024 Because of a physica l, mental, or emotional condition, do you have serious difficulty concentrating, remembering, or making decisions No 07/17/2024 1:27 PM EDT Ramona Baker RN No [facility] Clinical Notes 03-28-2023 to 11-14-2024 Georgia Lino MD - 11/14/2024 2:13 PM Flaquita Delvalle APRN.[employer]PARED [employer]ODS SUPERVISOR - 11/12/2024 11:30 AM EDTTelephone Encounter - Khloeaiden KoriROYA - 10/24/2024 3:30 PM EDTPatient Instructions Note Date & Type Note Facility 11-14-2024 Note HNO ID: [id number] Author: GEORGIA LINO MD Service: ? Author Type: Physician Type: Progress Notes Filed: 11/14/2024 14:39 Note Text: Stewart Zuniga is a 24 year old female who presents for problem visit control issues HPI: Wants to go back to a combo OCP. Currently on POP and having irregualr bleeding. 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 History Comments: Sexual Activity: Not Currently; Male Contraception: Pill PAST MEDICAL HISTORY Diagnosis Date Anxiety PVC's (premature ventricular contractions) PAST SURGICAL HISTORY Procedure Laterality Date DELIVERY ONLY 08/24/2024 Failure of Descent KNEE ARTHROSCOPY Right 01/2022 meniscus repair FAMILY HISTORY Problem Relation Age of Onset No Known Problems Mother No Known Problems Father Heart Maternal Grandmother SOCIAL HISTORY[1] Current Outpatient Medications Medication Sig SUMAtriptan (IMITREX) 50 mg tablet Take 1 tablet by mouth as needed for migraine headache (see administration instructions). May repeat dose after 2 hours if needed. Maximum daily dose is 200 mg per day. naproxen (NAPROSYN) 375 mg tablet Take 1 tablet by mouth three times a day as needed (headache). Norethindrone, Contraceptive, 0.35 mg tablet Take 1 tablet by mouth once daily. sertraline (ZOLOFT) 50 mg tablet Take 1.5 tablets by mouth once daily. (Patient taking differently: Take 50 mg by mouth once daily.) [id number] acid ( 19) 29 mg iron- 1 mg Take 1 tablet by mouth once daily. metoprolol succinate ER (TOPROL XL) 25 mg 24 hr tablet Take by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 headaches since 2 weeks ; no prior history of migraines. - Neurology appointment scheduled for February. - Advised to continue current management and follow up with neurology as scheduled. trial of imitrex w/ NSAID Genesis Martinez MD [1] Social History Tobacco Use Smoking status: Never Smokeless tobacco: Never Vaping Use Vaping status: Never Used Substance Use Topics Alcohol use: Never Drug use: Never documented in this encounter [facility] 10-20-2024 Telephone encounter Note Patient scheduled [facility] 10-20-2024 Miscellaneous Notes Patient scheduled Left message to call office for appointment yes needs appointment next available. Genesis Martinez MD Does patient need an appointment to discuss? C/s was 08/24/[address] Lino documented in this encounter [facility] 10-20-2024 Telephone encounter Note Left message to call office for appointment [facility] 10-20-2024 Telephone encounter Note yes needs appointment next available. Geensis Martinez MD [facility] 10-20-2024 Telephone encounter Note See other 10/20 mychart message encounter. Sharon Yusuf RN [facility] 10-20-2024 Miscellaneous Notes See other 10/20 mychart message encounter. Sharon Yusuf RN documented in this encounter [facility] 10-20-2024 Telephone encounter Note Does patient need an appointment to discuss? C/s was 08/24/[address] Lino [facility] 10-13-2024 Note HNO ID: [id number] Author: ANGIE OCASIO APRN.PREPARED FOODS SUPERVISOR Service: ? Author Type: Nurse Practitioner Type: Progress Notes Filed: 10/13/2024 13:19 Note Text: Obstetrics and Gynecology [place] MEDICAL TECHNOLOGIST PRN Visit Subjective Recording using ambient AI software for draft documentation of the visit was discussed with the patient/authorized medical collections representative; all questions welcomed and answered. Patient/authorized medical collections representative agreed to proceed CHIEF COMPLAINT: The patient is a 24-year-old female presenting with concerns about heavy menstrual bleeding. HPI: Menstrual Irregularities - Onset: Began on evening. - Initial Flow: Described as normal on and Sunday. - Current Flow: Became extremely heavy on Sunday and Sunday. - Clots: Passed two small clots, approximately the size of a dime, on Sunday morning. - Bleeding Management: Saturated a thick pad and subsequently a diaper due to the volume of bleeding. - Associated Symptoms: Reports a persistent headache for several days, which began before the onset of her period. Denies lightheadedness or dizziness. - Current Medication: Taking a progesterone-only control pill, norethindrone. 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 PHYSICAL EXAM: BP 110/68 Wt 143 lb 6.4 oz (65.0kg) LMP 10/09/2024 GENERAL: Pleasant; in no apparent distress PULMONARY: normal inspiratory effort NEURO: alert and oriented x3 EXTREMITIES: normal Assessment AND Plan ASSESSMENT AND PLAN: 1. Episode of heavy vaginal bleeding (N93.9) - Heavy vaginal bleeding since , initially light but became heavier over the weekend; currently on norethindrone (progesterone-only control pill). - Start additional norethindrone 5 mg PO daily for 10 days. - Advised patient to monitor for signs of anemia (lightheadedness, dizziness, syncope) and to report if bleeding does not improve within 24-48 hours or worsens. - Educated patient that bleeding can be irregular and that it may take several months for cycles to regulate, even with control. - Follow-up as needed if bleeding persists or worsens. Angie Ocasio APRN.IVETH Medical Decision Making: Problems: Low: Acute, uncomplicated illness or injury Risk: Moderate: Drug management Medical Decision Making Level: 3 - Low [1] Past Medical History: No date: Anxiety No date: PVC's (premature ventricular contractions) [2] Review of patient's family history indicates: Problem: No Known Problems Relation: Mother Age of Onset: (Not Specified) Problem: No Known Problems Relation: Father Age of Onset: (Not Specified) Problem: Heart Relation: Maternal Grandmother Age of Onset: (Not Specified) [3] Social History Tobacco Use Smoking status: Never Smokeless tobacco: Never Vaping Use Vaping status: Never Used Substance Use Topics Alcohol use: Never Drug use: Never [4] Current Outpatient Medications Medication Sig Norethindrone, Contraceptive, 0.35 mg tablet Take 1 tablet by mouth once daily. sertraline (ZOLOFT) 50 mg tablet Take 1.5 tablets by mouth once daily. [id number] acid ( 19) 29 mg iron- 1 mg Take 1 tablet by mouth once daily. metoprolol succinate ER (TOPROL XL) 25 mg 24 hr tablet Take by mouth. norethindrone (AYGESTIN) 5 mg tablet Take 1 tablet by mouth once daily. No current facility-administered medications for this visit. [5] Allergies Allergen Reactions Adhesive Hives Lactose GI Upset [facility] 10-13-2024 History of Present illness Narrative Images from the original note were not included. Obstetrics and Gynecology [place] MEDICAL TECHNOLOGIST PRN Visit Subjective Recording using [employer] software for draft documentation of the visit was discussed with the patient/authorized medical collections representative; all questions welcomed and answered. Patient/authorized medical collections representative agreed to proceed CHIEF COMPLAINT: The patient is a 24-year-old female presenting with concerns about heavy menstrual bleeding. HPI: Menstrual Irregularities - Onset: Began on evening. - Initial Flow: Described as normal on and Sunday. - Current Flow: Became extremely heavy on Sunday and Sunday. - Clots: Passed two small clots, approximately the size of a dime, on Sunday morning. - Bleeding Management: Saturated a thick pad and subsequently a diaper due to the volume of bleeding. - Associated Symptoms: Reports a persistent headache for several days, which began before the onset of her period. Denies lightheadedness or dizziness. - Current Medication: Taking a progesterone-only control pill, norethindrone. 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 PHYSICAL EXAM: BP 110/68 Wt 143 lb 6.4 oz (65.0kg) LMP 10/09/2024 GENERAL: Pleasant; in no apparent distress PULMONARY: normal inspiratory effort NEURO: alert and oriented x3 EXTREMITIES: normal Assessment & Plan ASSESSMENT AND PLAN: 1. Episode of heavy vaginal bleeding (N93.9) - Heavy vaginal bleeding since , initially light but became heavier over the weekend; currently on norethindrone (progesterone-only control pill). - Start additional norethindrone 5 mg PO daily for 10 days. - Advised patient to monitor for signs of anemia (lightheadedness, dizziness, syncope) and to report if bleeding does not improve within 24-48 hours or worsens. - Educated patient that bleeding can be irregular and that it may take several months for cycles to regulate, even with control. - Follow-up as needed if bleeding persists or worsens. Angie Ocasio APRN.CNP Medical Decision Making: Problems: Low: Acute, uncomplicated illness or injury Risk: Moderate: Drug management Medical Decision Making Level: 3 - Low [1] Past Medical History: No date: Anxiety No date: PVC's (premature ventricular contractions) [2] Review of patient's family history indicates: Problem: No Known Problems Relation: Mother Age of Onset: (Not Specified) Problem: No Known Problems Relation: Father Age of Onset: (Not Specified) Problem: Heart Relation: Maternal Grandmother Age of Onset: (Not Specified) [3] Social History Tobacco Use Smoking status: Never Smokeless tobacco: Never Vaping Use Vaping status: Never Used Substance Use Topics Alcohol use: Never Drug use: Never [4] Current Outpatient Medications Medication Sig Norethindrone, Contraceptive, 0.35 mg tablet Take 1 tablet by mouth once daily. sertraline (ZOLOFT) 50 mg tablet Take 1.5 tablets by mouth once daily. [id number] acid ( 19) 29 mg iron- 1 mg Take 1 tablet by mouth once daily. metoprolol succinate ER (TOPROL XL) 25 mg 24 hr tablet Take by mouth. norethindrone (AYGESTIN) 5 mg tablet Take 1 tablet by mouth once daily. No current facility-administered medications for this visit. [5] Allergies Allergen Reactions Adhesive Hives Lactose GI Upset documented in this encounter [facility] 10-06-2024 Note HNO ID: [id number] Author: AMILCAR MÉNDEZ APRN.CNM Service: ? Author Type: Shoe Associate Type: Progress Notes Filed: 10/06/2024 16:47 Note Text: Headaches Stewart Zuniga is a 24 year old here for post headache. C/O migraine that started several days ago. She reports light sensitivity and nausea. Took Tylenol without relief. Delivery Summary: 08/24/24 39w2d primary c/s, arrest of descent, Dr. Lino ROS: General: Denies any fever or chills Hypertension Screening: Headache? Yes. Was it successfully treated with Tylenol? no Visual Changes? No Epigastric Pain? No Increased Swelling? No Taking any BP medications at home? Yes Monitoring BP at home? No Other issues: None Discharge Medications: Norethindrone, Contraceptive, 0.35 mg tablet Take 1 tablet by mouth once daily. sertraline (ZOLOFT) 50 mg tablet Take 1.5 tablets by mouth once daily. [id number]-[id number] acid ( 19) 29 mg iron- 1 mg Take 1 tablet by mouth once daily. metoprolol succinate ER (TOPROL XL) 25 mg 24 hr tablet Take by mouth. ALLERGIES Allergen Reactions Adhesive Hives Lactose GI Upset HISTORY REVIEW PAST MEDICAL HISTORY Diagnosis Date Anxiety PVC's (premature ventricular contractions) PAST SURGICAL HISTORY Procedure Laterality Date DELIVERY ONLY 08/24/2024 Failure of Descent KNEE ARTHROSCOPY Right 01/2022 meniscus repair SENSITIVE EXAM: Sensitive exam not performed. PHYSICAL EXAMINATION: General: pleasant,female in no apparent distress, AANDO x 3. 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 C/O migraine that started several days ago. She reports light sensitivity and nausea. Took Tylenol without relief. Delivery Summary: 08/24/24 39w2d primary c/s, arrest of descent, Dr. Lino ROS: General: Denies any fever or chills Hypertension Screening: Headache? Yes. Was it successfully treated with Tylenol? no Visual Changes? No Epigastric Pain? No Increased Swelling? No Taking any BP medications at home? Yes Monitoring BP at home? No Other issues: None Discharge Medications: Norethindrone, Contraceptive, 0.35 mg tablet Take 1 tablet by mouth once daily. sertraline (ZOLOFT) 50 mg tablet Take 1.5 tablets by mouth once daily. [id number]-ngqi-wlcus acid ( 19) 29 mg iron- 1 mg Take 1 tablet by mouth once daily. metoprolol succinate ER (TOPROL XL) 25 mg 24 hr tablet Take by mouth. ALLERGIES Allergen Reactions Adhesive Hives Lactose GI Upset HISTORY REVIEW PAST MEDICAL HISTORY Diagnosis Date Anxiety PVC's (premature ventricular contractions) PAST SURGICAL HISTORY Procedure Laterality Date DELIVERY ONLY 08/24/2024 Failure of Descent KNEE ARTHROSCOPY Right 01/2022 meniscus repair SENSITIVE EXAM: Sensitive exam not performed. PHYSICAL EXAMINATION: General: pleasant,female in no apparent distress, A&O x 3. 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 Support provided Possible consult to headache clinic Amilcar Méndez APRN.CNM documented in this encounter [facility] 09-29-2024 Instructions Naren Jc APRN.CNP - 09/29/2024 9:21 AM EDT Psychotherapy Services at [facility] Call Behavioral Health Access Line at [phone] to schedule Individual psychotherapy In-person or virtual Wait time for first evaluation may be 12 or more weeks. Wait list spots may be available. Due to the high volume of patients this option is recommended if you are looking for short term acute symptom coping strategies. 4-365-3-UDYK5BQNU - [facility] Mental Health Hotline If you are in suicidal crisis, please call or text 8-997-218-TALK ( ) or visit the National Suicide Prevention Lifeline website. mchb.rusta.gov If you are in crisis, call 911 or go to your nearest Emergency Department Here are some links for wonderful Providers here in the community and surrounding areas. Do not hesitate to contact their offices, many are offering virtual visits during this time. Psychotherapy Services outside of [facility] Support International Online Provider Directory https://Yassets/ - can assist in finding providers in your area that might be more extensive then the list below. [facility] [place], [place] [address] [place] [address] [facility] [address] [place] [address] [facility] [address] [place] [address] [facility] [address], [place] [id number] Pedro Ferreira MD [address] [place] [address] [facility] [address] [facility], [address] [place] [address] [facility] [address] [place] [address] [facility] Counseling Services [place] / [place] [phone]/ [phone] [facility] [address] [facility] [phone] Aves of Counseling and Mediation [place] / [place] [phone] Behavioral health services of [facility] [address] [place] [address]/ [place] [phone] Gina Alvares, NATALEE, CLC [facility] Workshops, telehealth and at home visits. [phone] Humanistic counseling center 20 locations [facility], [place], [place], [place], [place], [place], [facility], [place], [place], [place], [place], [place], [place], [facility], [place], [place] ,[facility], [place], [place],[facility], south [place], [place], basia gallegos, [place], Best www.Meta Data Analytics 360.co [phone] Psychotherapy resources outside of [facility] are listed below [facility] Web: https://www.Adskom/ Support International Online Provider Directory https://Yassets/ [facility] https://Fyusion/ [facility] Web: https://Pombai/ PEPperPRINT for Effective Living Web: https://iCharts.Vixlo/ [facility] Web: https://Matchmaker Videos/location/s flash/[place]/ [facility] Web: https://www.Presence Networks.or / [facility] Web: https://SRC Computers.Rapportive/ Recovery Resources Mental health and substance abuse help Web: https://www.Molecular Imagings.Rapportive & RESOURCES Support International Direct peer support and connection to professional resources Non-Emergency Helpline Phone: / Text: [phone] Web: https://www..net/ Online Provider Directory: https://Yassets/ Online Support Meetings: https://www..net/get-he lp/vtt-yulnoy-euwiccd-meetings/ YANIV Baby and Die Polisher Services Web: https://wwwHotelQuickly/ MotherToBaby Expert information on medication use during and Text: [phone] Web: https://ReplyBuy.Rapportive/ NATIONAL REGISTRY FOR PSYCHIATRIC MEDICATIONS Currently studying the safety of antidepressants, ADHD medications and atypical antipsychotics taken during TO PARTICIPATE CALL TOLL-FREE: Web: https://womensmentalhealth.org/re search/pregnancyregistry/ Support Groups: [facility]- Follow on facebook Baby Bistro support group led by [facility] department Resilient Mamas - Support Group [facility].org The POEM support group [phone] Www.poemonline.org Follow on facebook - DAINA magallanes chapter Online support meetings PSI https://www..net/get-he lp/ovv-jfvrze-teayuet-meetings/ [facility] mommy and me virtual support group 11:30-1pm Support for mothers and new babies and toddlers [place] childbirth education: Childbirth @[facility].org or call [phone] CRISIS: CRISIS HOTLINE [phone], 911 or go to the nearest ER. [facility] [phone] / [facility] [phone] https://www.[facility].org Crisis text line text the word HOME to 280367 [facility] [address] [facility] [address] www.Gabstr Zenaida Carrizales clinical counseling [address] [address] www.BrightQube [phone] Holding space psychotherapy Ana Chao BUTTONHOLER MANPOWER DEVELOPMENT MANAGER-S [address] [facility] www.Cohealo [phone]/ [place] [phone] They all offer virtual. All work with trauma Support groups Online support meetings PSI https://www..net/get-he lp/nxq-kdoipt-bzuhvfc-meetings/ Here are the support groups they offer: Support of parents of 1 to 4 years old children POEM ( Outreach and Encouragement for Moms) offers free support for mothers experiencing depression, anxiety, and other mood and anxiety disorders. Masks are recommended but not required. No pre-registration required. Babies in arms welcome. meetings now take place on the and Sunday of each month Location: [facility] [address], [place] [address] Room 122 (library room) 7-8:00 p.m. When you enter the moravian parking lot off of [address] , the entrance door closest to our meeting room is on the front of the building toward the right. For those who are more comfortable with a virtual platform, POTRAN offers online support group options several days of the week. To register for an online group or to find out more about POEM, website at: https://aoalo.org/get-help/[facility] hospitalxbjk-xziwxm-zacyir/poem-services/ offer a confidential helpline: private Facebook group is called DAINA Alban Mcclelland Here are the groups they offer: Traumatic childbirth resources: Http://patHomeforswap.org/ https://www.KitchInangelIntervalZero.Vixlo/ Name Location (s) Phone # (s) Services Website [facility] [address] [facility] [phone]; [address] [phone] In-Person GROUPS INDIVIDUAL THERAPY MATERNAL- MENTAL HEALTH MEDICATION MANAGEMENT PLAY AND ART THERAPY TELETHERAPY https://www.Adskom/s ervices/ [facility]? [address] [address] ? [address] [place], [place] [address] ? PALACIO [address] [address]? Grief Support Groups Individual Grief Counseling Spiritual Care Memorial Events https://alban.[facility].org/grief-services [facility] [address] [place], [place] [address]; ; Email: elie@[email or web address] Women's Mental Health; Couples Counseling; Trauma (EMDR); Stress Management; Mood and Anxiety Related Disorders- and much more https://www.Youcruit.com/ LifeStance Numerous as they have contract providers: access website to find specific providers near you Counseling including CBT and EMDR as well as many more modalities; Medication Management; Telehealth and In-Person https://Minimally invasive devices.Vixlo/ [facility] [address] [place], [place] [address]; [phone] Personal, Family and Group Therapy; Psychological Testing and Diagnosis; Medication Management; Life and Career Coaching; Psychoanalysis; Literacy Testing; Yoga and Meditation https://Floor64.Vixlo/ Fit [facility] [address] [facility] [address], [place] [address] [address] ; [address] [facility], [address] [place] [address]; Office # for both sites: Individual and Couples Counseling https://www.360incentives.comunc health rex.Vixlo/ paymentinsurance.html OCD & Anxiety [facility] [address] [facility], [address], [place] [address]; Specialize in Cognitive-Behavioral Therapy (CBT) for the treatment of anxiety disorders across the lifespan. TELEHEALTH ONLY. https://ocdandanxietycenteroThe Virtual Pulp Companylev Zenkars/faqs [facility] [address] [facility] [address]th [place], [address] [place] [address] [facility] [place] [place], [address] [place] [address] [facility] [place], [address] [place] [address] [place], [address], [address] [place], [address] [facility] [address] [place], [address] Transportation Services To minimize patient barriers, [facility] provides transportation services to patients who qualify. If you are unable to get to your appointment at any of our facilities, please let us know. Need help now? Stop by one of our walk-in clinics to establish behavioral health care. Counseling Indvidual, Group, Couples and Family Counseling and EMDR. Medication Management Case Management benefits applications housing assistance Substance abuse treatment Medication assisted treatment https://www.signaturehealthinc.or g/mental-health/ [facility] OFFICE AT [facility] [address] [place] [address] [facility] OFFICE [address] [place] [address] [facility] OFFICE [address] [place] [address] [facility] OFFICE (at [facility]) [address] [place] [address] [facility] EXCHANGE PROGRAM & HIV SCREENING [address] [place] [address] [facility] [facility] EXCHANGE PROGRAM [address] [place] [address] Behavioral Health Urgent Care: [facility] Sites Counseling Indvidual and Group Medication Management Case Management benefits applications housing assistance Substance abuse treatment Medication assisted treatment Employment Services/ Job Training https://theKelly Van Gogh Hair Colour.org/ Recovery Resources [address] [place], [place] [address]: P: [phone] [address] [facility], [address], [place] [address] P: [phone] Our services include: Addiction Mental Health Treatment Assessment Psychiatry Medical Care Employment Housing Drug and Alcohol Prevention HIV/AIDS Prevention https://www.recres.org/ [facility] [place] [address] [facility] [address] [place] [address] [place], [place] [address] [place], [place] [address] [place] [address] [place] [address] [place] [address] [facility] [address] [place] [address] [place] [address] [address] [place] [address] TMS Therapy/ Counseling Psychocological Testing for ADHD Medication Management In-Person/ Telemedicine https://www.NewsCrafted.com/mica ents-depression Memory & Psychological services [address] [place] [address], [place] [address] Neuropsychological Testing For ADHD https://www.memoryandpsych.com/ [facility] - Main Office [address] [place] [address] [address] Providing qepn-yu-ygkr and telehealth services. Adult Case Management Community Education and Prevention Employment Outpatient Treatment - Counseling & Psychotherapy Psychiatric Services http://www.[facility].org/ Ebb And Flow Counseling and Wellness [facility] [address] [place] [address] [facility]) [address] [place] [address] Virtual Appointments! Now offering safe and convenient virtual client appointments to anyone in [place]! Individual Therapy Couples/Relationship Therapy Trauma/EMDR Therapy Art Therapy Play Therapy Casserole Preparer Support: Parenting Skills, Parent Child Interaction Therapy, Parent Interaction Therapy Meditation Dietitian/Lap Machine Tender Services Group Therapy Yoga https://www.Qminder/ Kelli Camacho [phone] Private Practice: Telehealth Only Specializes in EMDR for Trauma None documented in this encounter [facility] 09-29-2024 Note HNO ID: [id number] Author: NAREN JC APRN.CNP Service: ? Author Type: Nurse Practitioner Type: Progress Notes Filed: 09/29/2024 09:28 Note Text: VISIT Stewart Zuniga is a 24 year old year old here for visit. Delivery Summary: 08/24/24 39w2d primary c/s, arrest of descent, Dr. Lino ROS/ Recovery: Feeding: Breast feeding problems: None Menses since delivery: resolved Menstrual pattern prior to : Regular periods [place] since delivery: Not resumed Depression: admits to symptoms of anxiety OB Depression and Anxiety Screening- This Encounter Feeling down, depressed, or hopeless: Not at all Little interest or pleasure in doing things: Not at all Feeling nervous, anxious, or on edge Several days Not being able to stop or control worrying Not at all Anxiety Pre-Screening Total (If >/= 3 additional questions will be reviewed) 1 Worrying too much about different things Several days Trouble relaxing Not at all Being so restless that it is hard to sit still Not at all Becoming easily annoyed or irritable Nearly Everyday Feeling afraid, as if something awful might happen Several days How difficult to do work, care for home, get along with people Somewhat difficult GALINA-7 Score 8 Emotional support: Yes Bowel symptoms: Negative for abdominal discomfort, blood in stools or black stools and change in bowel habits Abdomen: She reports no incisional redness, tenderness, erythema Bladder symptoms: No dysuria, gross hematuria, urinary frequency, urinary urgency, or incontinence Other issues: Some musculoskeletal back pain, some occasional pain of incision Last Pap: 2023 normal HPV: N/A PAST MEDICAL HISTORY Diagnosis Date PVC's (premature ventricular contractions) PAST SURGICAL HISTORY Procedure Laterality Date DELIVERY ONLY 08/24/2024 Failure of Descent KNEE ARTHROSCOPY Right 01/2022 meniscus repair FAMILY HISTORY Problem Relation Age of Onset No Known Problems Mother No Known Problems Father Heart Maternal Grandmother Social History Tobacco Use Smoking status: Never Smokeless tobacco: Never Vaping Use Vaping status: Never Used Substance Use Topics Alcohol use: Never Drug use: Never PHYSICAL EXAMINATION: SENSITIVE EXAM: The sensitive examination was discussed with the Patient or Patient's Authorized Ice Resurfacing Machine Operators. As applicable, any other physician, advance practice provider, medical student, or other health professional student that will be observing or involved in the sensitive examination for educational or training purposes was discussed with the Patient or Authorized Ice Resurfacing Machine Operators. The Patient or Authorized Ice Resurfacing Machine Operators has agreed to proceed with the sensitive examination. (Sensitive examination includes inspection and/or palpation of the breasts, pelvis, prostate and anorectal regions). BP 116/82 Ht 5' 1 (1.55m) Wt 142 lb (64.4kg) LMP 11/23/2023 BMI 26.84 kg/(m2). GENERAL: pleasant, female in no apparent distress HEENT: Normocephalic, atraumatic, mucus membranes moist, and no lesions NECK: Supple, full range of motion, no adenopathy, and thyroid normal DERMATOLOGY: Normal, without lesions, non-icteric, and non-hirsute BREAST: soft, non-tender, symmetric, no dominant mass, normal nipple-areolar complex, no lymphadenopathy, and no nipple discharge CHEST: Normal inspiratory effort ABDOMEN: soft, non-tender, and no masses. INCISION: No incisional redness, swelling, or drainage PELVIC: external genitalia normal, normal Bartholin's glands, urethra, [place]'s glands, no vulvar lesions, normal appearing perineal body and perianal region. (Deferred internal exam due to past history of trauma) BIMANUAL: deferred (declines, past history of trauma) NEURO: alert and oriented x3,exam grossly non-focal EXTREMITIES: normal ASSESSMENT AND PLAN: 24 year old status post CS with course complicated by anxiety. Contraception plan: progesterone only pill. Reviewed r/b. Follow up: Anxiety: Reports improving. Denies thoughts of self harm or harming others. Was not able to attend psych appointments. Reports symptoms improving on current Zoloft dose. Mental health resources provided. Declines counseling at this time. weight loss: Goal set for 10% of body weight over 6 months. Discussed diet and exercise., Progesterone only OCP - patient will call when no longer , RTC for annual exams and PRN Can resume intercourse when physically, emotionally, and mentally ready. Reviewed the physical and mental changes that occur after having a baby. Recommend waiting 12-18 months after delivery for any subsequent pregnancies. Reviewed expectations with c/s scar. Reviewed what to expect first year and when to follow up. Naren Jc APRN.[facility] 09-29-2024 History of Present illness Narrative VISIT Stewart Zuniga is a 24 year old year old here for visit. Delivery Summary: 08/24/24 39w2d primary c/s, arrest of descent, Dr. Lino ROS/ Recovery: Feeding: Breast feeding problems: None Menses since delivery: resolved Menstrual pattern prior to : Regular periods [place] since delivery: Not resumed Depression: admits to symptoms of anxiety OB Depression and Anxiety Screening- This Encounter Feeling down, depressed, or hopeless: Not at all Little interest or pleasure in doing things: Not at all Feeling nervous, anxious, or on edge Several days Not being able to stop or control worrying Not at all Anxiety Pre-Screening Total (If >/= 3 additional questions will be reviewed) 1 Worrying too much about different things Several days Trouble relaxing Not at all Being so restless that it is hard to sit still Not at all Becoming easily annoyed or irritable Nearly Everyday Feeling afraid, as if something awful might happen Several days How difficult to do work, care for home, get along with people Somewhat difficult GALINA-7 Score 8 Emotional support: Yes Bowel symptoms: Negative for abdominal discomfort, blood in stools or black stools and change in bowel habits Abdomen: She reports no incisional redness, tenderness, erythema Bladder symptoms: No dysuria, gross hematuria, urinary frequency, urinary urgency, or incontinence Other issues: Some musculoskeletal back pain, some occasional pain of incision Last Pap: 2023 normal HPV: N/A PAST MEDICAL HISTORY Diagnosis Date PVC's (premature ventricular contractions) PAST SURGICAL HISTORY Procedure Laterality Date DELIVERY ONLY 08/24/2024 Failure of Descent KNEE ARTHROSCOPY Right 01/2022 meniscus repair FAMILY HISTORY Problem Relation Age of Onset No Known Problems Mother No Known Problems Father Heart Maternal Grandmother Social History Tobacco Use Smoking status: Never Smokeless tobacco: Never Vaping Use Vaping status: Never Used Substance Use Topics Alcohol use: Never Drug use: Never PHYSICAL EXAMINATION: SENSITIVE EXAM: The sensitive examination was discussed with the Patient or Patient's Authorized Ice Resurfacing Machine Operators. As applicable, any other physician, advance practice provider, medical student, or other health professional student that will be observing or involved in the sensitive examination for educational or training purposes was discussed with the Patient or Authorized Ice Resurfacing Machine Operators. The Patient or Authorized Ice Resurfacing Machine Operators has agreed to proceed with the sensitive examination. (Sensitive examination includes inspection and/or palpation of the breasts, pelvis, prostate and anorectal regions). BP 116/82 Ht 5' 1 (1.55m) Wt 142 lb (64.4kg) LMP 11/23/2023 BMI 26.84 kg/(m^2). GENERAL: pleasant, female in no apparent distress HEENT: Normocephalic, atraumatic, mucus membranes moist, and no lesions NECK: Supple, full range of motion, no adenopathy, and thyroid normal DERMATOLOGY: Normal, without lesions, non-icteric, and non-hirsute BREAST: soft, non-tender, symmetric, no dominant mass, normal nipple-areolar complex, no lymphadenopathy, and no nipple discharge CHEST: Normal inspiratory effort ABDOMEN: soft, non-tender, and no masses. INCISION: No incisional redness, swelling, or drainage PELVIC: external genitalia normal, normal Bartholin's glands, urethra, [place]'s glands, no vulvar lesions, normal appearing perineal body and perianal region. (Deferred internal exam due to past history of trauma) BIMANUAL: deferred (declines, past history of trauma) NEURO: alert and oriented x3,exam grossly non-focal EXTREMITIES: normal ASSESSMENT AND PLAN: 24 year old status post CS with course complicated by anxiety. Contraception plan: progesterone only pill. Reviewed r/b. Follow up: Anxiety: Reports improving. Denies thoughts of self harm or harming others. Was not able to attend psych appointments. Reports symptoms improving on current Zoloft dose. Mental health resources provided. Declines counseling at this time. weight loss: Goal set for 10% of body weight over 6 months. Discussed diet and exercise., Progesterone only OCP - patient will call when no longer , RTC for annual exams and PRN Can resume intercourse when physically, emotionally, and mentally ready. Reviewed the physical and mental changes that occur after having a baby. Recommend waiting 12-18 months after delivery for any subsequent pregnancies. Reviewed expectations with c/s scar. Reviewed what to expect first year and when to follow up. Naren Jc APRN.[employer] documented in this encounter [facility] 09-24-2024 Instructions Moise Meade APRN.CNP - 09/24/2024 9:40 AM EDT Dear Stewart Zuniga, Our office had you scheduled for an appointment for 09/24/2024 at 9 am. Please don't hesitate to call [phone] in order to reschedule. If you have questions or concerns prior to your next appointment, you can reach me on FamilyLeaf or by calling [phone] ext [phone]. If you have trouble logging onto a FamilyLeaf visit, please call the virtual support line at [phone]. Thank you for choosing the [facility] for your care! Sincerely, David Meade APRN.[employer]PAR[employer] SUPER[employer]OR For those experiencing a suicidal crisis: Call the National Suicide Prevention Lifeline at 986 (524-776-5288) Text the Crisis Text Line (text HOME to 275805) Call 911 and let them know you are having a mental health crisis or go to your nearest Emergency Room for stabilization. You can also call Mobile Crisis at [phone]. YOU SHOULD SEEK IMMEDIATE MEDICAL ATTENTION AT THE NEAREST EMERGENCY DEPARTMENT OR BY CALLING 911, IF ANY OF THE FOLLOWING OCCURS: New or worsening thoughts of harming yourself (suicidal thoughts) or others (homicidal thoughts) Not feeling safe at home or worrying about your ability to remain safe at home documented in this encounter [facility] 09-24-2024 History of Present illness Narrative Patient did not come to appointment today, September 24, 2024. Patient messaged on FamilyLeaf with instructions on how to reschedule and guidance on what to do in case of psychiatric emergency. documented in this encounter [facility] 09-24-2024 Note HNO ID: [id number] Author: MOISE MEADE APRN.CNP Service: ? Author Type: Nurse Practitioner Type: Progress Notes Filed: 09/24/2024 09:40 Note Text: Patient did not come to appointment today, September 24, 2024. Patient messaged on FamilyLeaf with instructions on how to reschedule and guidance on what to do in case of psychiatric emergency. [facility] 09-17-2024 Instructions Moise Meade APRN.CNP - 09/17/2024 9:52 AM EDT Dear Stewart Zuniga, Our office had you scheduled for an appointment for 09/17/2024 at 9 am. Please don't hesitate to call [phone] in order to reschedule. If you have questions or concerns prior to your next appointment, you can reach me on FamilyLeaf or by calling [phone] ext [phone]. If you have trouble logging onto a FamilyLeaf visit, please call the [employer] support line at [phone]. Thank you for choosing the [facility] for your care! Sincerely, David Meade APRN.CNP For those experiencing a suicidal crisis: Call the National Suicide Prevention Lifeline at 988 (500.417.4045) Text the Crisis Text Line (text HOME to 514386) Call 911 and let them know you are having a mental health crisis or go to your nearest Emergency Room for stabilization. You can also call Mobile Crisis at [phone]. YOU SHOULD SEEK IMMEDIATE MEDICAL ATTENTION AT THE NEAREST EMERGENCY DEPARTMENT OR BY CALLING 911, IF ANY OF THE FOLLOWING OCCURS: New or worsening thoughts of harming yourself (suicidal thoughts) or others (homicidal thoughts) Not feeling safe at home or worrying about your ability to remain safe at home documented in this encounter [facility] 09-17-2024 History of Present illness Narrative Patient did not come to appointment today, September 17, 2024. Patient messaged on FamilyLeaf with instructions on how to reschedule and guidance on what to do in case of psychiatric emergency. documented in this encounter [facility] 09-17-2024 Note HNO ID: [id number] Author: MOISE MEADE APRN.CNP Service: ? Author Type: Nurse Practitioner Type: Progress Notes Filed: 09/17/2024 09:53 Note Text: Patient did not come to appointment today, September 17, 2024. Patient messaged on FamilyLeaf with instructions on how to reschedule and guidance on what to do in case of psychiatric emergency. [facility] 09-11-2024 Note HNO ID: [id number] Author: MILLY SINGH MD Service: ? Author Type: Physician Type: Progress Notes Filed: 09/11/2024 12:37 Note Text: Stewart Zuniga is a 24 year old female who presents for problem visit for incision check. HPI: Pain above the incision but not at the incision site for last 2 days. She notices a bump above the incision that is staying the same in size for the last 2 days. No bleeding or drainage from the incision. Denies fever, chills, malaise, difficulty with urination or BM's. Bleeding scant. Eating well. No nausea or vomiting. Feels the Zoloft is working but does not notice a big change after the increase from 25 mg to 50 mg. Not established with a counselor but would like to be established with . She denies SI or HI. Has a history of underlying depression and anxiety. 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 History Comments: Sexual Activity: Yes; Male Contraception: No contraception data on record PAST MEDICAL HISTORY Diagnosis Date PVC's (premature ventricular contractions) PAST SURGICAL HISTORY Procedure Laterality Date DELIVERY ONLY 08/24/2024 Failure of Descent KNEE ARTHROSCOPY Right 01/2022 meniscus repair FAMILY HISTORY Problem Relation Age of Onset No Known Problems Mother No Known Problems Father Heart Maternal Grandmother Social History Tobacco Use Smoking status: Never Smokeless tobacco: Never Vaping Use Vaping status: Never Used Substance Use Topics Alcohol use: Never Drug use: Never Current Outpatient Medications Medication Sig [id number] acid ( 19) 29 mg iron- 1 mg Take 1 tablet by mouth once daily. metoprolol succinate ER (TOPROL XL) 25 mg 24 hr tablet Take by mouth. sertraline (ZOLOFT) 50 mg tablet Take 1.5 tablets by mouth once daily. ondansetron (ZOFRAN) 4 mg tablet Take 1 tablet by mouth every 8 hours as needed for nausea/vomiting. (Patient not taking: Reported on 09/11/2024) No current facility-administered medications for this visit. Allergies As of Date: 09/11/2024 Allergen Noted Reaction ADHESIVE 10/23/2023 Hives LACTOSE 10/23/2023 GI Upset Fully Assessed 09/11/2024 REVIEW OF SYSTEMS Expanded ROS: See HPI. Allergies and current medication updated:Yes SENSITIVE EXAM: Sensitive exam not performed. EXAM: BP 110/72 Wt 143 lb 3.2 oz (65.0kg) LMP 11/23/2023 GENERAL: pleasant, female in no apparent distress HEENT: Normocephalic and atraumatic NECK: full range of motion CHEST: Normal inspiratory effort ABDOMEN: soft, non-tender, no masses, and incision well healed. No erythema, swelling, fluctuance, or drainage at incision site. No rebounding, guarding, rigidity. NEURO: exam grossly non-focal EXTREMITIES: normal ASSESSMENT AND PLAN: Assessment AND Plan History of depression Orders: CONSULT TO WOMEN'S BEHAVIORAL HEALTH; Future History of anxiety Orders: CONSULT TO WOMEN'S BEHAVIORAL HEALTH; Future S/P section state (HCC) Incision well healed. Discussed care and expectations. Reviewed reasons to call. Increase Zoloft from 50 mg to 75 mg, and consult placed to women's behavorial health. Milly Singh DO [facility] 09-11-2024 History of Present illness Narrative Stewart Zuniga is a 24 year old female who presents for problem visit for incision check. HPI: Pain above the incision but not at the incision site for last 2 days. She notices a bump above the incision that is staying the same in size for the last 2 days. No bleeding or drainage from the incision. Denies fever, chills, malaise, difficulty with urination or BM's. Bleeding scant. Eating well. No nausea or vomiting. Feels the Zoloft is working but does not notice a big change after the increase from 25 mg to 50 mg. Not established with a counselor but would like to be established with . She denies SI or HI. Has a history of underlying depression and anxiety. 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 History Comments: Sexual Activity: Yes; Male Contraception: No contraception data on record PAST MEDICAL HISTORY Diagnosis Date PVC's (premature ventricular contractions) PAST SURGICAL HISTORY Procedure Laterality Date DELIVERY ONLY 08/24/2024 Failure of Descent KNEE ARTHROSCOPY Right 01/2022 meniscus repair FAMILY HISTORY Problem Relation Age of Onset No Known Problems Mother No Known Problems Father Heart Maternal Grandmother Social History Tobacco Use Smoking status: Never Smokeless tobacco: Never Vaping Use Vaping status: Never Used Substance Use Topics Alcohol use: Never Drug use: Never Current Outpatient Medications Medication Sig [id number] acid ( 19) 29 mg iron- 1 mg Take 1 tablet by mouth once daily. metoprolol succinate ER (TOPROL XL) 25 mg 24 hr tablet Take by mouth. sertraline (ZOLOFT) 50 mg tablet Take 1.5 tablets by mouth once daily. ondansetron (ZOFRAN) 4 mg tablet Take 1 tablet by mouth every 8 hours as needed for nausea/vomiting. (Patient not taking: Reported on 09/11/2024) No current facility-administered medications for this visit. Allergies As of Date: 09/11/2024 Allergen Noted Reaction ADHESIVE 10/23/2023 Hives LACTOSE 10/23/2023 GI Upset Fully Assessed 09/11/2024 REVIEW OF SYSTEMS Expanded ROS: See HPI. Allergies and current medication updated:Yes SENSITIVE EXAM: Sensitive exam not performed. EXAM: BP 110/72 Wt 143 lb 3.2 oz (65.0kg) LMP 11/23/2023 GENERAL: pleasant, female in no apparent distress HEENT: Normocephalic and atraumatic NECK: full range of motion CHEST: Normal inspiratory effort ABDOMEN: soft, non-tender, no masses, and incision well healed. No erythema, swelling, fluctuance, or drainage at incision site. No rebounding, guarding, rigidity. NEURO: exam grossly non-focal EXTREMITIES: normal ASSESSMENT AND PLAN: Assessment & Plan History of depression Orders: CONSULT TO WOMEN'S BEHAVIORAL HEALTH; Future History of anxiety Orders: CONSULT TO WOMEN'S BEHAVIORAL HEALTH; Future S/P section state (HCC) Incision well healed. Discussed care and expectations. Reviewed reasons to call. Increase Zoloft from 50 mg to 75 mg, and consult placed to women's behavorial health. Milly Singh DO documented in this encounter [facility] 09-02-2024 Note HNO ID: [id number] Author: GEORGIA LINO MD Service: ? Author Type: Physician Type: Progress Notes Filed: 09/02/2024 16:56 Note Text: Stewart Zuniga is a 24 year old female who presents for problem visit for post back pain for 4-5 days. HPI: Back pain starting in the lower back and radiating up on either side of the spine. Delivered by on 08/24/24. Abdomen has been ok. No incisional problems. Breast feeding well. 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 History Comments: Sexual Activity: Yes; Male Contraception: No contraception data on record PAST MEDICAL HISTORY Diagnosis Date PVC's (premature ventricular contractions) PAST SURGICAL HISTORY Procedure Laterality Date DELIVERY ONLY 08/24/2024 Failure of Descent KNEE ARTHROSCOPY Right 01/2022 meniscus repair FAMILY HISTORY Problem Relation Age of Onset No Known Problems Mother No Known Problems Father Heart Maternal Grandmother Social History Tobacco Use Smoking status: Never Smokeless tobacco: Never Vaping Use Vaping status: Never Used Substance Use Topics Alcohol use: Never Drug use: Never Current Outpatient Medications Medication Sig sertraline (ZOLOFT) 50 mg tablet Take 1 tablet by mouth once daily. [id number]-[id number] acid ( 19) 29 mg iron- 1 mg Take 1 tablet by mouth once daily. ondansetron (ZOFRAN) 4 mg tablet Take 1 tablet by mouth every 8 hours as needed for nausea/vomiting. metoprolol succinate ER (TOPROL XL) 25 mg 24 hr tablet Take by mouth. No current facility-administered medications for this visit. Allergies As of Date: 09/02/2024 Allergen Noted Reaction ADHESIVE 10/23/2023 Hives LACTOSE 10/23/2023 GI Upset Fully Assessed 09/02/2024 REVIEW OF SYSTEMS Abdomen: No bloating, early satiety, indigestion, or increased flatulence. No abdominal pain, nausea, vomiting, diarrhea, or constipation. Bladder: No dysuria, gross hematuria, urinary frequency, urinary urgency, or incontinence. Breast: No breast lumps, nipple d/c, overlying skin changes, redness or skin retraction. Expanded ROS: N/A Allergies and current medication updated:Yes SENSITIVE EXAM: Sensitive exam not performed. EXAM: BP 122/66 Wt 151 lb (68.5kg) LMP 11/23/2023 GENERAL: pleasant, female in no apparent distress HEENT: Normocephalic, atraumatic, mucus membranes moist, and no lesions NECK: Supple, full range of motion, and no adenopathy DERMATOLOGY: Normal, without lesions, non-icteric, and non-hirsute BREAST: deferred CHEST: Normal inspiratory effort ABDOMEN: Deferred Back: Tender along spinal muscles bilaterally. No spine deformity. PELVIC: deferred BIMANUAL: deferred NEURO: alert and oriented x3,exam grossly non-focal EXTREMITIES: normal ASSESSMENT AND PLAN: Assessment AND Plan pain (HCC) Back pain. Likely from muscle spasms. Reviewed Motrin/tylenol and massage of the muscles involved. Georgia Lino MD [facility] 09-02-2024 History of Present illness Narrative Stewart Zuniga is a 24 year old female who presents for problem visit for post back pain for 4-5 days. HPI: Back pain starting in the lower back and radiating up on either side of the spine. Delivered by on 08/24/24. Abdomen has been ok. No incisional problems. Breast feeding well. 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 History Comments: Sexual Activity: Yes; Male Contraception: No contraception data on record PAST MEDICAL HISTORY Diagnosis Date PVC's (premature ventricular contractions) PAST SURGICAL HISTORY Procedure Laterality Date DELIVERY ONLY 08/24/2024 Failure of Descent KNEE ARTHROSCOPY Right 01/2022 meniscus repair FAMILY HISTORY Problem Relation Age of Onset No Known Problems Mother No Known Problems Father Heart Maternal Grandmother Social History Tobacco Use Smoking status: Never Smokeless tobacco: Never Vaping Use Vaping status: Never Used Substance Use Topics Alcohol use: Never Drug use: Never Current Outpatient Medications Medication Sig sertraline (ZOLOFT) 50 mg tablet Take 1 tablet by mouth once daily. [id number]-[id number]-[id number] acid ( 19) 29 mg iron- 1 mg Take 1 tablet by mouth once daily. ondansetron (ZOFRAN) 4 mg tablet Take 1 tablet by mouth every 8 hours as needed for nausea/vomiting. metoprolol succinate ER (TOPROL XL) 25 mg 24 hr tablet Take by mouth. No current facility-administered medications for this visit. Allergies As of Date: 09/02/2024 Allergen Noted Reaction ADHESIVE 10/23/2023 Hives LACTOSE 10/23/2023 GI Upset Fully Assessed 09/02/2024 REVIEW OF SYSTEMS Abdomen: No bloating, early satiety, indigestion, or increased flatulence. No abdominal pain, nausea, vomiting, diarrhea, or constipation. Bladder: No dysuria, gross hematuria, urinary frequency, urinary urgency, or incontinence. Breast: No breast lumps, nipple d/c, overlying skin changes, redness or skin retraction. Expanded ROS: N/A Allergies and current medication updated:Yes SENSITIVE EXAM: Sensitive exam not performed. EXAM: BP 122/66 Wt 151 lb (68.5kg) LMP 11/23/2023 GENERAL: pleasant, female in no apparent distress HEENT: Normocephalic, atraumatic, mucus membranes moist, and no lesions NECK: Supple, full range of motion, and no adenopathy DERMATOLOGY: Normal, without lesions, non-icteric, and non-hirsute BREAST: deferred CHEST: Normal inspiratory effort ABDOMEN: Deferred Back: Tender along spinal muscles bilaterally. No spine deformity. PELVIC: deferred BIMANUAL: deferred NEURO: alert and oriented x3,exam grossly non-focal EXTREMITIES: normal ASSESSMENT AND PLAN: Assessment & Plan pain (HCC) Back pain. Likely from muscle spasms. Reviewed Motrin/tylenol and massage of the muscles involved. Georgia Lino MD documented in this encounter [facility] 08-29-2024 Note HNO ID: [id number] Author: GENESIS MARTINEZ MD Service: ? Author Type: Physician Type: Progress Notes Filed: 08/29/2024 14:03 Note Text: EARLY VISIT Stewart Zuniga is a 24 year old here for 2 week visit. Delivery Summary: failed vacuum, then primary c/s ROS: General: Denies any fever or chills Hypertension Screening: Headache? No. Visual Changes? No Epigastric Pain? No Increased Swelling? No Taking any BP medications at home? No If applicable, monitoring BP at home? (If Yes, include results) No Mood: sad, more so at night Depression: denies symptoms of depression. OB Depression and Anxiety Screening- This Encounter Feeling down, depressed, or hopeless: Several days Little interest or pleasure in doing things: Not at all Feeling nervous, anxious, or on edge Several days Not being able to stop or control worrying Not at all Anxiety Pre-Screening Total (If >/= 3 additional questions will be reviewed) 1 Feeding: Breast feeding problems: None Bladder: No dysuria, gross hematuria, urinary frequency, urinary urgency, or incontinence Bowel symptoms: No nausea, vomiting, or diarrhea, No heartburn or reflux symptoms, Negative for abdominal discomfort, blood in stools or black stools, and change in bowel habits Abdomen: redness, had a dog jump on incision a couple days after c/s. Bleeding: spotting Bottom and Perineum: No issues Sleep: no sleep concerns and sleeps in bassinet/crib in parent's room, feels rested [place] since delivery: Not resumed Emotional support: Yes Exercise: N/A Other issues: None Reviewed above. Struggling mood rivero end o f . Has good support. Some increased anxiety and sadness. SENSITIVE EXAM: Sensitive exam not performed. PHYSICAL EXAMINATION: BP 112/70 Wt 69.9 kg (154 lb) LMP 11/23/2023 (Exact Date) Yes BMI 29.10 kg/m? General: pleasant,female in no apparent distress, AANDO x 3. Skin warm and intact. Breast: Deferred Abdomen: soft, non-tender, and no masses /Incision: No incisional redness, swelling, or drainage Pelvic: Deferred Bimanual: Deferred ASSESSMENT AND PLAN: 24 year old status post CS with normal course. Contraception plan: considering . Reinforced 6-week pelvic rest. Encouraged condom usage should patient deviate. Education: resources provided - see MA/RN note 4. Increase zoloft to 50 mg daily. F/u in 1-2 weeks Follow up: Return to Clinic for 6 week visit and as needed Genesis Martinez MD [facility] 08-29-2024 History of Present illness Narrative EARLY VISIT Stewart Zuniga is a 24 year old here for 2 week visit. Delivery Summary: failed vacuum, then primary c/s ROS: General: Denies any fever or chills Hypertension Screening: Headache? No. Visual Changes? No Epigastric Pain? No Increased Swelling? No Taking any BP medications at home? No If applicable, monitoring BP at home? (If Yes, include results) No Mood: sad, more so at night Depression: denies symptoms of depression. OB Depression and Anxiety Screening- This Encounter Feeling down, depressed, or hopeless: Several days Little interest or pleasure in doing things: Not at all Feeling nervous, anxious, or on edge Several days Not being able to stop or control worrying Not at all Anxiety Pre-Screening Total (If >/= 3 additional questions will be reviewed) 1 Feeding: Breast feeding problems: None Bladder: No dysuria, gross hematuria, urinary frequency, urinary urgency, or incontinence Bowel symptoms: No nausea, vomiting, or diarrhea, No heartburn or reflux symptoms, Negative for abdominal discomfort, blood in stools or black stools, and change in bowel habits Abdomen: redness, had a dog jump on incision a couple days after c/s. Bleeding: spotting Bottom and Perineum: No issues Sleep: no sleep concerns and sleeps in bassinet/crib in parent's room, feels rested [place] since delivery: Not resumed Emotional support: Yes Exercise: N/A Other issues: None Reviewed above. Struggling mood rivero end o f . Has good support. Some increased anxiety and sadness. SENSITIVE EXAM: Sensitive exam not performed. PHYSICAL EXAMINATION: BP 112/70 Wt 69.9 kg (154 lb) LMP 11/23/2023 (Exact Date) Yes BMI 29.10 kg/m General: pleasant,female in no apparent distress, A&O x 3. Skin warm and intact. Breast: Deferred Abdomen: soft, non-tender, and no masses /Incision: No incisional redness, swelling, or drainage Pelvic: Deferred Bimanual: Deferred ASSESSMENT AND PLAN: 24 year old status post CS with normal course. Contraception plan: considering . Reinforced 6-week pelvic rest. Encouraged condom usage should patient deviate. Education: resources provided - see MA/RN note 4. Increase zoloft to 50 mg daily. F/u in 1-2 weeks Follow up: Return to Clinic for 6 week visit and as needed Genesis Martinez MD documented in this encounter [facility] 08-25-2024 Hospital Discharge instructions Additional Instructions Date of Discharge: 08/25/24 [facility] Work Phone: 08-25-2024 Discharge summary Note Date/Time August 25, 2024 7:15am [facility] Medical Records Department [address] [place] [address] Discharge Summary 08/25/24 0712 MR#: [id number] Acct: [id number] Name: STEWART ZUNIGA Rep #:[id number] : 2000 24 From: Georgia Lino MD PCP: Care Physician,No Primary Status :ADM IN Location: SV186-4 Providers Date of Admission: 08/22/24 Date of Discharge: 08/25/24 Primary Care Physician: No Primary Care Phys Reason For Visit: LABOR Diagnosis Discharge Diagnosis (1) S/P : Status: Acute Code(s): Z98.891 - History of uterine scar from previous surgery (2) Rh negative state in antepartum period: Status: Acute Code(s): O26.899 - Other specified related conditions, unspecified trimester; Z67.91 - Unspecified blood type, Rh negative Plan discharge home Medications at Discharge Home Medications acetaminophen 325 mg tablet (Tylenol) 325 mg PO ONCE PRN fever or pain 12/08/21 metoprolol succinate 25 mg tablet,extended release 24 hr 25 mg PO DAILY PVC 07/14/24 vit no.95-ferrous fumarate 28 mg-folic acid 800 mcg tablet () 1tab PO DAILY 07/14/24 pantoprazole 20 mg tablet,delayed release (Protonix) 20 mg PO DAILY heartburn 08/07/24 sertraline 25 mg tablet (Zoloft) 25 mg PO DAILY depression and anxiety 08/07/24 Hospital Course Operations section Procedures None Summary of Care Provided Minutes Spent on Discharge: 20 Hospital Course: Induction of labor. Failed vacuum. PCS without complication. breast feeding Physical Exam Const alert General Appearance: cooperative GI GI Narrative: soft, moderate distention, fundus firm, appropriately tender. Abdominal bandageclean dry and intact Weight / BMI Weight Weight: 76.827 kg Body Mass Index (BMI) 32.0 ABG / Lab / Microbiology Data 08/25/24 06:30 Laboratory: Laboratory Results - last 24 hr 08/25/24 05:40: WBC Cancelled, Corrected WBC Cancelled, RBC Cancelled, Hgb Cancelled, Hct Cancelled, MCV Cancelled, MCH Cancelled, MCHC Cancelled, RDW Std Deviation Cancelled, RDW Coeff of Karrie Cancelled, Plt Count Cancelled, MPV Cancelled, Diff Path Review Cancelled 08/25/24 06:30: WBC 14.9 H, RBC 3.02 L, Hgb 9.6 L, Hct 28.9 L, MCV 95.7, MCH 31.8, MCHC 33.2, RDW Std Deviation 48.1 H, RDW Coeff of Karrie 13.8, Plt Count 179,MPV 10.3, Immature Gran % (Auto) 0.600, Neut % (Auto) 74.1 H, Lymph % (Auto) 15.8 L, [place] % (Auto) 6.7, Eos % (Auto) 2.5, Baso % (Auto) 0.3, Absolute Neuts (auto) 11.1 H, Absolute Lymphs (auto) 2.36, Nucleated RBC % 0 D/C Instructions Discharge Diet: No restrictions May resume sexual activity in: 4-6 weeks Lifting Restrictions: 20 pounds Additional Activity Instructions: Nothing in the vagina for 4-6 weeks. You may return to work/school in 6 weeks. Call your doctor if your incision/area has: Continuous Slow Oozing, Sudden Increased Bleeding, Increased Pain/ Swelling, Increased Redness and Foul Smelling Discharge Call your doctor if you observe: Fever of 101 or Higher and Using more than 1 pad per hour (for 2 hours) Suture Line Care: Avoid Pulling/Pushing and Avoid Pinching/Bending Cleanse incision/area with: Keep Dressing Clean & Dry DC O2, CPAP, BIPAP Needs Home O2 Discharge instructions: No Please Follow Up With: Genesis Martinez MD When: Call to make an appointment for an incision check in 1-2 [phone]. You will need a post check in 6 weeks. Meaningful Use Info Meaningful Use Meaningful Use Diagnoses (Choose all that apply): None applicable Ischemic Stroke Statin Dosing Therapy Reference: STATIN DOSE THERAPY REFERENCE: * Patients > 75 years receive moderate or high dose statin therapy. * Patients 75 years or YOUNGER should receive HIGH intensity statin dose unless contraindicated. You will be required to document reason for non-treatment if statin daily dose does not meet guidelines. HIGH DOSE STATIN THERAPY DAILY Atorvastatin > than or = to 40 mg Rosuvastatin > than or = to 20 mg Amlodipine + Atorvastatin > than or = to 2.5/40 mg Ezetimibe + Simvastatin 10/80 mg Simvastatin 80mg Discharge Plan Admission Admit Date/Time: 08/22/24 19:18 Primary Reason for Your Visit: induction Attending Provider: Georgia Lino Primary Care Provider: Care Physician,No Primary Discharge Orders/Prescriptions Prescriptions: Continued acetaminophen [Tylenol] 325 mg tablet 325 mg PO ONCE PRN (Reason: fever or pain) pantoprazole [Protonix] 20 mg tablet,delayed release (DR/EC) 20 mg PO DAILY sertraline [Zoloft] 25 mg tablet 25 mg PO DAILY PNV cmb#95-ferrous fumarate-FA [] 28 mg iron- 800 mcg tablet 1 tab PO DAILY metoprolol succinate 25 mg tablet extended release 24 hr 25 mg PO DAILY Discontinued ondansetron 4 mg tablet,disintegrating 4 mg PO Q8H PRN PRN (Reason: Nausea) Qty: 10 0RF aspirin [Children's Aspirin] 81 mg tablet,chewable 1 tab PO DAILY Referrals / Follow Up: Care Physician,No Primary [Primary Care Provider] - Disposition Disposition (needs filled in before D/C Order can be placed): Home, Self Care 08/25/24 0715 <Electronically signed by Georgia Lino MD> Cosigner Signature (if applicable): CC: Dr. Georgia Lino MD; No Primary Care Physician~ Signed [facility] Work Phone: 1(279) 419-583506-23-2025 Progress note Author Georgia Lino [facility] Note Date/Time August 25, 2024 7:12 am [facility] Medical Records Department [address] [place] [address] Progress Note - OBGYN 08/25/24 0711 MR#: [id number] Acct: [id number] Name: STEWART ZUNIGA Rep #:[id number] : 2000 24 From: Georgia Lino MD PCP: Care Physician,No Primary Status :ADM IN [id number] Subjective Subjective Doing well. Ambulating and voiding without difficulty. Mild lochia. Breast feeding. Objective Data Objective Data Vital Signs: Vital Signs Temp Pulse Resp BP Pulse Ox O2 Del Method 97.7 F L 77 14 109/62 97 Room Air 08/25/24 03:30 08/25/24 03:30 08/25/24 03:30 08/25/24 03:30 08/25/24 03:30 08/25/24 03:30 Oxygen Delivery Method Room Air Weight: 76.827 kg Body Mass Index (BMI) 32.0 Intake & Output: Intake and Output for Last 24 Hours 08/23/24 08/24/24 08/25/24 23:59 23:59 23:59 Intake Total 3093.07 / 3093.07 1941.61 / 1941.61 Output Total 900 / 900 2650 / 2650 Balance 2193.07 / 2193.07 -708.39 / -708.39 Lab / Micro Data 08/25/24 06:30 Labs: Laboratory Results - last 24 hr 08/25/24 05:40: WBC Cancelled, Corrected WBC Cancelled, RBC Cancelled, Hgb Cancelled, Hct Cancelled, MCV Cancelled, MCH Cancelled, MCHC Cancelled, RDW Std Deviation Cancelled, RDW Coeff of Karrie Cancelled, Plt Count Cancelled, MPV Cancelled, Diff Path Review Cancelled 08/25/24 06:30: WBC 14.9 H, RBC 3.02 L, Hgb 9.6 L, Hct 28.9 L, MCV 95.7, MCH 31.8, MCHC 33.2, RDW Std Deviation 48.1 H, RDW Coeff of Karrie 13.8, Plt Count 179,MPV 10.3, Immature Gran % (Auto) 0.600, Neut % (Auto) 74.1 H, Lymph % (Auto) 15.8 L, [place] % (Auto) 6.7, Eos % (Auto) 2.5, Baso % (Auto) 0.3, Absolute Neuts (auto) 11.1 H, Absolute Lymphs (auto) 2.36, Nucleated RBC % 0 ROS Constitutional Constitutional: Denies headache(s) Cardiovascular Cardiovascular: Denies chest pain or dyspnea Gastrointestinal Gastrointestinal: Denies nausea or vomiting Genitourinary Genitourinary: Denies dysuria Physical Exam Const alert, oriented x3 and no apparent distress General Appearance: cooperative and comfortable Eyes PERRL and EOMs intact bilaterally Resp normal respiratory effort GI soft to palpation and non-tender GI Narrative: soft, moderate distention, fundus firm, appropriately tender. Abdominal bandageclean dry and intact Uterus Palpation: uterus fundus firm ( below umbilicus) Extremity normal to inspection and full ROM Neuro oriented x3 and CN's II-XII intact bilaterally Psych mental status grossly normal Assessment & Plan (1) S/P : (2) Rh negative state in antepartum period: PLAN: Plan discharge home 08/25/24 0712 <Electronically signed by Georgia Lino MD> Cosigner Signature (if applicable): CC: ~ Signed [facility] Work Phone: 1(891) 471-648306-23-2025 NoteHNO ID: [id number] Author: GEORGIA WREN RN Service: ? Author Type: Registered Nurse Type: Progress Notes Filed: 08/25/2024 08:54 Note Text: Patient delivered via C/S at [facility] on 08/24/24 per Georgia Lino MD . See OB Outcome note. [facility] of Present illness Narrative* Georgia Wren RN - 08/25/2024 8:51 AM EDT Patient delivered via C/S at [facility] on 08/24/24 per Georgia Lino MD . See OB Outcome note. PEACE Arenas [facility] Discharge summary [facility] Medical Records Department [address] [place] [address] Discharge Summary 08/25/24 0712 MR#: [id number] Acct: [id number] Name: STEWART ZUNIGA Rep #:[id number] : 2000 24 From: Georgia Lino MD PCP: Care Physician,No Primary Status :ADM IN [facility] Providers Date of Admission: 08/22/24 Date of Discharge: 08/25/24 Primary Care Physician: No Primary Care Phys Reason For Visit: LABOR Diagnosis Discharge Diagnosis (1) S/P : Status: Acute Code(s): Z98.891 - History of uterine scar from previous surgery (2) Rh negative state in antepartum period: Status: Acute Code(s): O26.899 - Other specified related conditions, unspecified trimester; Z67.91 - Unspecifiedblood type, Rh negative Plan discharge home Medications at Discharge Home Medications acetaminophen 325 mg tablet (Tylenol) 325 mg PO ONCE PRN fever or pain 12/08/21 metoprolol succinate 25 mg tablet,extended release 24 hr 25 mg PO DAILY PVC 07/14/24 vit no.95-ferrous fumarate 28 mg-folic acid 800 mcg tablet () 1tab PO DAILY 07/14/24 pantoprazole 20 mg tablet,delayed release (Protonix) 20 mg PO DAILY heartburn 08/07/24 sertraline 25 mg tablet (Zoloft) 25 mg PO DAILY depression and anxiety 08/07/24 Hospital Course Operations section Procedures None Summary of Care Provided Minutes Spent on Discharge: 20 Hospital Course: Induction of labor. Failed vacuum. PCS without complication. breast feeding Physical Exam Const alert General Appearance: cooperative GI GI Narrative: soft, moderate distention, fundus firm, appropriately tender. Abdominal bandageclean dry and intact Weight / BMI Weight Weight: 76.827 kg Body Mass Index (BMI) 32.0 ABG / Lab / Microbiology Data 08/25/24 06:30 Laboratory: Laboratory Results - last 24 hr 08/25/24 05:40: WBC Cancelled, Corrected WBC Cancelled, RBC Cancelled, Hgb Cancelled, Hct Cancelled, MCV Cancelled, MCH Cancelled, MCHC Cancelled, RDW Std Deviation Cancelled, RDW Coeff of Karrie Cancelled, Plt Count Cancelled, MPV Cancelled, Diff Path Review Cancelled 08/25/24 06:30: WBC 14.9 H, RBC 3.02 L, Hgb 9.6 L, Hct 28.9 L, MCV 95.7, MCH 31.8, MCHC 33.2, RDW Std Deviation 48.1 H, RDW Coeff of Karrie 13.8, Plt Count 179,MPV 10.3, Immature Gran % (Auto) 0.600, Neut % (Auto) 74.1 H, Lymph % (Auto) 15.8 L, [place] % (Auto) 6.7, Eos % (Auto) 2.5, Baso % (Auto) 0.3, Absolute Neuts (auto) 11.1 H, Absolute Lymphs (auto) 2.36, Nucleated RBC % 0 D/C Instructions Discharge Diet: No restrictions May resume sexual activity in: 4-6 weeks Lifting Restrictions: 20 pounds Additional Activity Instructions: Nothing in the vagina for 4-6 weeks. You may return to work/school in 6 weeks. Call your doctor if your incision/area has: Continuous Slow Oozing, Sudden Increased Bleeding, Increased Pain/ Swelling, Increased Redness and Foul Smelling Discharge Call your doctor if you observe: Fever of 101 or Higher and Using more than 1 pad per hour (for 2 hours) Suture Line Care: Avoid Pulling/Pushing and Avoid Pinching/Bending Cleanse incision/area with: Keep Dressing Clean & Dry DC O2, CPAP, BIPAP Needs Home O2 Discharge instructions: No Please Follow Up With: Genesis Martinez MD When: Call to make an appointment for an incision check in 1-2 [phone]. You will need a post check in 6 weeks. Meaningful Use Info Meaningful Use Meaningful Use Diagnoses (Choose all that apply): None applicable Ischemic Stroke Statin Dosing Therapy Reference: STATIN DOSE THERAPY REFERENCE: * Patients > 75 years receive moderate or high dose statin therapy. * Patients 75 years or YOUNGER should receive HIGH intensity statin dose unless contraindicated. You will be required to document reason for non-treatment if statin daily dose does not meet guidelines. HIGH DOSE STATIN THERAPY DAILY Atorvastatin > than or = to 40 mg Rosuvastatin > than or = to 20 mg Amlodipine + Atorvastatin > than or = to 2.5/40 mg Ezetimibe + Simvastatin 10/80 mg Simvastatin 80mg Discharge Plan Admission Admit Date/Time: 08/22/24 19:18 Primary Reason for Your Visit: induction Attending Provider: Georgia Lino Primary Care Provider: Care Physician,No Primary Discharge Orders/Prescriptions Prescriptions: Continued acetaminophen [Tylenol] 325 mg tablet 325 mg PO ONCE PRN (Reason: fever or pain) pantoprazole [Protonix] 20 mg tablet,delayed release (DR/EC) 20 mg PO DAILY sertraline [Zoloft] 25 mg tablet 25 mg PO DAILY PNV cmb#95-ferrous fumarate-FA [] 28 mg iron- 800 mcg tablet 1 tab PO DAILY metoprolol succinate 25 mg tablet extended release 24 hr 25 mg PO DAILY Discontinued ondansetron 4 mg tablet,disintegrating 4 mg PO Q8H PRN PRN (Reason: Nausea) Qty: 10 0RF aspirin [Children's Aspirin] 81 mg tablet,chewable 1 tab PO DAILY Referrals / Follow Up: Care Physician,No Primary [Primary Care Provider] - Disposition Disposition (needs filled in before D/C Order can be placed): Home, Self Care 08/25/24714 Cosigner Signature (if applicable): CC: Dr. Georgia Lino MD; No Primary Care Physician~ Signed [facility]06-23-2025 [facility] Medical Records Department [address] [place] [address] Discharge Summary 08/25/24711 MR#: [id number] Acct: [id number] Name: STEWART ZUNIGA Rep #: [id number] : 2000 24 From: Georgia Lino MD PCP: Care Physician,No Primary Status:ADM IN Location: [place] [address]-1 Providers Date of Admission: 08/22/24 Date of Discharge: 08/25/24 Primary Care Physician: No Primary Care Phys Reason For Visit: LABOR Diagnosis Discharge Diagnosis (1) S/P : Status: Acute Code(s): Z98.891 - History of uterine scar from previous surgery (2) Rh negative state in antepartum period: Status: Acute Code(s): O26.899 - Other specified related conditions, unspecified trimester; Z67.91 - Unspecified blood type, Rh negative Plan discharge home Medications at Discharge Home Medications acetaminophen 325 mg tablet (Tylenol) 325 mg PO ONCE PRN fever or pain 12/08/21 metoprolol succinate 25 mg tablet,extended release 24 hr 25 mg PO DAILY PVC 07/14/24 vit no.95-ferrous fumarate 28 mg-folic acid 800 mcg tablet () 1 tab PO DAILY 07/14/24 pantoprazole 20 mg tablet,delayed release (Protonix) 20 mg PO DAILY heartburn 08/07/24 sertraline 25 mg tablet (Zoloft) 25 mg PO DAILY depression and anxiety 08/07/24 Hospital Course Operations section Procedures None Summary of Care Provided Minutes Spent on Discharge: 20 Hospital Course: Induction of labor. Failed vacuum. PCS without complication. breast feeding Physical Exam Const alert General Appearance: cooperative GI GI Narrative: soft, moderate distention, fundus firm, appropriately tender. Abdominal bandage clean dry and intact Weight / BMI Weight Weight: 76.827 kg Body Mass Index (BMI) 32.0 ABG / Lab / Microbiology Data 08/25/24 06:30 Laboratory: Laboratory Results - last 24 hr 08/25/24 05:40: WBC Cancelled, Corrected WBC Cancelled, RBC Cancelled, Hgb Cancelled, Hct Cancelled, MCV Cancelled, MCH Cancelled, MCHC Cancelled, RDW Std Deviation Cancelled, RDW Coeff of Karrie Cancelled, Plt Count Cancelled, MPV Cancelled, Diff Path Review Cancelled 08/25/24 06:30: WBC 14.9 H, RBC 3.02 L, Hgb 9.6 L, Hct 28.9 L, MCV 95.7, MCH 31.8, MCHC 33.2, RDW Std Deviation 48.1 H, RDW Coeff of Karrie 13.8, Plt Count 179, MPV 10.3, Immature Gran % (Auto) 0.600, Neut % (Auto) 74.1 H, Lymph % (Auto) 15.8 L, [place] % (Auto) 6.7, Eos % (Auto) 2.5, Baso % (Auto) 0.3, Absolute Neuts (auto) 11.1 H, Absolute Lymphs (auto) 2.36, Nucleated RBC % 0 D/C Instructions Discharge Diet: No restrictions May resume sexual activity in: 4-6 weeks Lifting Restrictions: 20 pounds Additional Activity Instructions: Nothing in the vagina for 4-6 weeks. You may return to work/school in 6 weeks. Call your doctor if your incision/area has: Continuous Slow Oozing, Sudden Increased Bleeding, Increased Pain/ Swelling, Increased Redness and Foul Smelling Discharge Call your doctor if you observe: Fever of 101 or Higher and Using more than 1 pad per hour (for 2 hours) Suture Line Care: Avoid Pulling/Pushing and Avoid Pinching/Bending Cleanse incision/area with: Keep Dressing Clean Dry DC O2, CPAP, BIPAP Needs Home O2 Discharge instructions: No Please Follow Up With: Genesis Martinez MD When: Call to make an appointment for an incision check in 1-2 [phone]. You will need a post check in 6 weeks. Meaningful Use Info Meaningful Use Meaningful Use Diagnoses (Choose all that apply): None applicable Ischemic Stroke Statin Dosing Therapy Reference: STATIN DOSE THERAPY REFERENCE: * Patients > 75 years receive moderate or high dose statin therapy. * Patients 75 years or YOUNGER should receive HIGH intensity statin dose unless contraindicated. You will be required to document reason for non-treatment if statin daily dose does not meet guidelines. HIGH DOSE STATIN THERAPY DAILY Atorvastatin > than or = to 40 mg Rosuvastatin > than or = to 20 mg Amlodipine + Atorvastatin > than or = to 2.5/40 mg Ezetimibe + Simvastatin 10/80 mg Simvastatin 80mg Discharge Plan Admission Admit Date/Time: 08/22/24 19:18 Primary Reason for Your Visit: induction Attending Provider: Georgia Lino Primary Care Provider: Care Physician,No Primary Discharge Orders/Prescriptions Prescriptions: Continued acetaminophen [Tylenol] 325 mg tablet 325 mg PO ONCE PRN (Reason: fever or pain) pantoprazole [Protonix] 20 mg tablet,delayed release (DR/EC) 20 mg PO DAILY sertraline [Zoloft] 25 mg tablet 25 mg PO DAILY PNV cmb#95-ferrous fumarate-FA [] 28 mg iron- 800 mcg tablet 1 tab PO DAILY metoprolol succinate 25 mg tablet extended release 24 hr 25 mg PO DAILY Discontinued ondansetron 4 mg tablet,disintegrating 4 mg P (more content not included)...[facility]06-23-2025 Progress note [facility] Medical Records Department [address] [place] [address] Progress Note - OBGYN 08/25/24 0711 MR#: [id number] Acct: [id number] Name: STEWART ZUNIGA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 Miscellaneous Notes* Quick Notes - Amilcar Méndez APRN.CNM - 07/14/2024 1:42 PM EDT S: Stewart Zuniga is a 24 year old female who presents at 33 weeks gestation as an add on for contractions, lower back pain and light pink discharge after wiping. She reports last week losing her mucous plug and began having irregular cramps. This past weekend continued to have cramps every couple ofhours. Today, feeling increase in frequency and pain of cramps. Rates pain 6/10. Positive move ments. Denies headache, visual changes, chest pain, shortness of breath, vaginal bleeding, leakage of fluid, or dysuria. Denies any recent intercourse. O: See flow sheet Gen: No apparent distress Abd: Gravid, non tender MEDICAL TECHNOLOGIST PRN: SSE - cervix closed, no active bleeding. [...] IV hydration, and possible steroid injection - control room technician provided notified Amilcar Méndez APRN.CNM documented in this encounterTogus [facility] Center05-12-2025 Instructions* Patient Instructions* Shantanu Gordon MA - 07/14/2024 12:57 PM EDT SEQUENTIAL SCREENINGS The [facility] offers sequential screenings for women who are [...] testing. It will require an appointment withour electrocardiogram technician. This is not an ultrasound performed [...] the above symptoms, contact our office at [phone] and ask to speak with anurse. After hours, you can call doctors registry at [phone] OR call [facility] at [phone] ask to have the doctor decision science analyst paged. If you consider this an emergency, dial 0-1-8 or go to your nearest emergency department. NEED HELP? Are you dealing with a violent or abusive relationship? Are you a victim of rape or sexual assult? Call [facility] [place] ([place]) 24 hour Crisis Hotline: 998.553.1300 or 399-451-0471. MANUAL Your Guide to a Healthy manual is now on-line. Visit [email or web address]/HealthyPregnancyGuide to download your free copy documented [facility] Telephone encounter Note * Telephone Encounter - Juju You RN - 07/14/2024 11:21 AM EDT 33w3d Later last night twice Pt had [...] stronger. Scheduled Pt with SW at 1pm. Juju You RN [facility]05-12-2025 Miscellaneous Notes* Telephone Encounter - Juju You RN - 07/14/2024 11:21 AM EDT 33w3d Later last night twice Pt had [...] stronger. Scheduled Pt with SW at 1pm. Juju You RN documented in this encounterT[facility]05-09-2025 Progress note* Quick Notes - Genesis Martinez MD - 07/11/2024 3:11 PM EDT RR- VB No. LOF No. CTXS No. Movement: present. Other c/o: No. Medication list reviewed. SENSITIVE EXAM: Sensitive exam not performed. Physical Exam See Flow Sheet Abd: soft, nontender, gravid Ext: edema: no A/P 33w0d Estimated Date of Delivery: 08/29/24 Assessment & Plan 33 weeks gestation of ([facility]) Supervision of high risk in third trimester ([facility]) cont. pnv. f/u in 2 weeks or prn birthing plan reviewed Genesis Martinez M.D. [facility]05-09-2025 Miscellaneous Notes* Quick Notes - Genesis Martinez MD - 07/11/2024 3:11 PM EDT RR- VB No. LOF No. CTXS No. Movement: present. Other c/o: No. Medication list reviewed. SENSITIVE EXAM: Sensitive exam not performed. Physical Exam See Flow Sheet Abd: soft, nontender, gravid Ext: edema: no A/P 33w0d Estimated Date of Delivery: 08/29/24 Assessment & Plan 33 weeks gestation of ([facility]) Supervision of high risk in third trimester ([facility]) cont. pnv. f/u in 2 weeks or prn birthing plan reviewed Genesis Martinez M.D. documented in this encounterTog[facility]05-09-2025 Instructions* Patient Instructions* Sahara Landis MA - 07/11/2024 2:38 PM EDT SEQUENTIAL SCREENINGS The [facility] offers sequential screenings for women who are [...] testing. It will require an appointment withour electrocardiogram technician. This is not an ultrasound performed [...] the above symptoms, contact our office at [phone] and ask to speak with anurse. After hours, you can call [facility] at [phone] OR call [facility] at [phone] ask to have the doctor decision science analyst paged. If you consider this an emergency, dial 9--1 or go to your nearest emergency department. NEED HELP? Are you dealing with a violent or abusive relationship? Are you a victim of rape or sexual assult? Call [facility] ([place]) 24 hour Crisis Hotline: 155.135.6006 or 602-019-2646. MANUAL Your Guide to a Healthy manual is now on-line. Visit [email or web address]/[email or web address] to download your free copy documented in this encounterTog[facility] Center05-08-2025 Telephone encounter Note * Telephone Encounter - Sharon Yusuf RN - 07/10/2024 10:47 AM EDT Signed and faxed. Sharon Yusuf RN [facility]05-08-2025 Miscellaneous Notes* Telephone Encounter - Sharon Yusuf RN - 07/10/2024 10:47 AM EDT Signed and faxed. Sharon Yusuf RN * Telephone Encounter - Sharon Yusuf RN - 07/10/2024 8:50 AM EDT Breast pump order received from [employer]. To CP to sign. Sharon Yusuf RN documented in this encounterTog[facility]05-08-2025 Telephone encounter Note * Telephone Encounter - Sharon Yusuf RN - 07/10/2024 8:50 AM EDT Breast pump order received from [employer]. To CP to sign. Sharon Yusuf RN [facility]05-05-2025 Progress note* Quick Notes - Georgia Lino MD - 07/07/2024 4:38 PM EDT S: Stewart Zuniga is a 24 year old female [...] Low back pain during in third trimester ([facility]) - ICD9: 646.80, 724.2, ICD10: O26.893, M54.50 (primary diagnosis) - UA DIP, URINE (POC) 2. 32 weeks gestation of ([facility]) - ICD9: V22.2, ICD10: Z3A.32 3. Encounter for supervision of normal first in third trimester ([facility]) - ICD9: V22.0, ICD10: Z34.03 Georgia Lino MD [facility]05-05-2025 Miscellaneous Notes* Quick Notes - Georgia Lino MD - 07/07/2024 4:38 PM EDT S: Stewart Zuniga is a 24 year old female [...] Low back pain during in third trimester ([facility]) - ICD9: 646.80, 724.2, ICD10: O26.893, M54.50 (primary diagnosis) - UA DIP, URINE (POC) 2. 32 weeks gestation of ([facility]) - ICD9: V22.2, ICD10: Z3A.32 3. Encounter for supervision of normal first in third trimester ([facility]) - ICD9: V22.0, ICD10: Z34.03 Georgia Lino MD documented in this encounterTogus [facility] Center05-05-2025 Instructions* Patient Instructions* Sahara Landis MA - 07/07/2024 4:02 PM EDT SEQUENTIAL SCREENINGS The [facility] offers sequential screenings for women who are [...] testing. It will require an appointment withour electrocardiogram technician. This is not an ultrasound performed [...] the above symptoms, contact our office at [phone] and ask to speak with anurse. After hours, you can call doctors registry at [phone] OR call [facility] at [phone] ask to have the doctor decision science analyst paged. If you consider this an emergency, dial 9--1 or go to your nearest emergency department. NEED HELP? Are you dealing with a violent or abusive relationship? Are you a victim of rape or sexual assult? Call [facility] ([place]) 24 hour Crisis Hotline: 949.653.5002 or 410-130-7251. MANUAL Your Guide to a Healthy manual is now on-line. Visit [email or web address] to download your free copy documented in this encounterTog[facility] Center04-15-2025 Telephone encounter Note * Telephone Encounter - Juju You RN - 06/17/2024 12:17 PM EDT Pt notified and voiced understanding. Juju You RN [facility]04-15-2025 Miscellaneous Notes* Telephone Encounter - Juju You RN - 06/17/2024 12:17 PM EDT Pt notified and voiced understanding. Juju You RN * Telephone Encounter - Georgia Lino MD - 06/17/2024 12:04 PM EDT Her CBC is fine. There is nothing of concern. The labs values are established for non patient so they will flag as abnormal even when they are not * Telephone Encounter - Juju You RN - 06/17/2024 11:53 AM EDT 29w4d Pt calling re: lab results from 06/13/24. States she received notification from J that she was not anemic; however, she [...] of range. Please advise and will send [employer] message to Pt with response. Juju You RN documented in this encounterTog[facility] Center04-15-2025 Telephone encounter Note * Telephone Encounter - Georgia Lino MD - 06/17/2024 12:04 PM EDT Her CBC is fine. There is nothing of concern. The labs values are established for non patient so they will flag as abnormal even when they are not [facility] Work Phone: 1(539) 391-903404-15-2025 Telephone encounter Note* Telephone Encounter - Juju You RN - 06/17/2024 11:53 AM EDT 29w4d Pt calling re: lab results from [...] of range. Please advise and will send [employer] message to Pt with response. Juju You RN [facility]04-13-2025 Radiology Diagnostic study note [facility] Imaging Services [address], [place] [address] CTA Chest W/WO Contrast MR#: [id number] Acct: [id number] Name: STEWART ZUNIGA Rep #: [id number] : 2000 F 24 From: Nabil Tran DO PCP: Care Physician,No Primary Status: REG ER Study:CTA Chest W/WO Contrast Date of Exam: 06/15/24 Exam# [id number] Ordering Dr: Frankie Jesus DO PROCEDURE: CTA [...] dissection. Normal caliber pulmonary arteries without filling defects.Somewhat limited evaluation of the peripheral pulmonary arteries [...] Mcdaniel DO; No Primary Care Physician ~ Rotor [employer]il Taper: Signed [facility]04-13-2025 Evaluation note* Diagnosis Onset Date Resolution Status Admit Date Abdominal pain acute June 7:56pm acute June 15 7:56pm Shortness of breath acute June 15, 2024 7:56pm [facility] Work Phone: 1(379) 666-809604-13-2025 Evaluation note* Diagnosis Onset Date Resolution Status Admit Date 29 weeks gestation of acut e June 15, 2024 7:56pm Abdominal pain acute June 7:56pm Cramping affecting , antepartum acute June 15, 2024 7:56pm acute June 15 7:56pm Shortness of breath acute June 15, 2024 7:56pm 33 weeks gestation of acut e July 14, 2024 2:17pm Uterine contractions acute July 14, 2024 2:17pm [facility] Work Phone: 1(602) 691-454804-13-2025 Evaluation note* Diagnosis Onset Date Resolution Status [...] Uterine contractions acute July 15, 2024 8:50am [facility] Work Phone: 1(439) 435-473004-13-2025 Evaluation note* Diagnosis Onset Date Resolution Status [...] Uterine contractions acute July 15, 2024 8:50am 36 weeks gestation of acut e August 07, 2024 4:31pm Abdominal trauma acute August 4:31pm Rh negative state in antepar naima period acute August 07, 2024 4 :31pm 39 weeks gestation of acut e August 22, 2024 7:18pm Elective induction of labor planned acute August 22, 2024 7:18pm Rh negative state in antepar naima period acute August 22, 2024 7:18pm S/P acute August 22, 2024 7:18pm [facility] Work Phone: 1(976) 562-818104-11-2025 NoteHNO ID: [id number] Author: MILLY SINGH MD Service: ? Author [...] - Rhogam today - Discussed classes at [facility] and peds - RTO 2 wks Milly Singh [facility]04-11-2025 History of Present illness Narrative* Milly [...] - Rhogam today - Discussed classes at [facility] and peds - RTO 2 wks Milly Singh DO documented in this encounterTogus [facility] Center04-11-2025 Instructions* Patient Instructions* Shantanu Gordon MA - 06/13/2024 1:23 PM EDT SEQUENTIAL SCREENINGS The [facility] offers sequential screenings for women who are [...] testing. It will require an appointment withour electrocardiogram technician. This is not an ultrasound performed [...] the above symptoms, contact our office at [phone] and ask to speak with anurse. After hours, you can call doctors registry at [phone] OR call [facility] at [phone] ask to have the doctor decision science analyst paged. If you consider this an emergency, dial 9-1-5 or go to your nearest emergency department. NEED HELP? Are you dealing with a violent or abusive relationship? Are you a victim of rape or sexual assult? Call [facility] ([place]) 24 hour Crisis Hotline: 211.412.7042 or 687-875-1868. MANUAL Your Guide to a Healthy manual is now on-line. Visit [email or web address] to download your free copy documented in this encounterTogus [facility] Center04-08-2025 Telephone encounter Note * Telephone Encounter - Manas Vogel MA - 06/10/2024 10:48 AM EDT Submitted PA for Eddiesec. Received immediate response that Your PA has been resolved. No additional PA is required. Manas Vogel MA [facility]04-08-2025 Miscellaneous Notes* Telephone Encounter - Manas Vogel MA - 06/10/2024 10:48 AM EDT Submitted PA for Prilosec. Received immediate response that Your PA has been resolved. No additional PA is required. Manas Vogel MA * Telephone Encounter - Izabela Collins - 06/10/2024 9:46 AM EDT Pt called in stating [facility] needs prior auth for Prilosec. Please advise, Thank you documented in this encounterTogus [facility] Medical Center04-08-2025 Telephone encounter Note * Telephone Encounter - Izabela Collins - 06/10/2024 9:46 AM EDT Pt called in stating [facility] needs prior auth for Prilosec. Please advise, Thank you [facility]04-08-20[facility] Telephone encounter Note* Telephone Encounter - Sharon Yuusf RN - 06/10/2024 9:06 AM EDT Left message for patient to check mychart message or call office. Sharon Yusuf RN [facility]04-08-2025 Miscellaneous Notes* Telephone Encounter - Sharon Yusuf RN - 06/10/2024 9:06 AM EDT Left message for patient to check mychart message or call office. Sharon Yusuf RN * Telephone Encounter - Kahlil Escobar MD - 06/10/2024 8:42 AM EDT [...] Sunday. Georgia Wren RN documented in this encounterTogus [facility] Center04-08-2025 Telephone encounter Note * Telephone Encounter - Kahlil Escobar MD - 06/10/2024 8:42 AM EDT I would also try warm shower again or warm soak in tub, stretching 3 x day , heating pad. Sounds like it could be MSK in nature. If any further concerns or if pain is not relieved please notify office. [facility] Work Phone: 1(616) 943-846304-08-2025 Telephone encounter Note* Telephone Encounter - Georgia [...] OB visit is Sunday. Georgia Wren RN [facility]04-02-2025 Telephone encounter Note* Telephone Encounter - Sharon Yusuf RN - 06/04/2024 4:59 PM EDT 27w5d Pharmacy requesting alternative for pantoprazole. See note below. Pharmacy comment: Alternative Requested:THE PRESCRIBED MEDICATION IS NOT COVERED BY INSURANCE. PLEASE CONSIDER CHANGING TO ONE OF THE SUGGESTED COVERED ALTERNATIVES. All Pharmacy Suggested Alternatives: Esomeprazole Magnesium 10 mg packet omeprazole (PRILOSEC) 10 mg capsule lansoprazole (PREVACID) 15 mg capsule [facility]04-02-2025 Miscellaneous Notes* Telephone Encounter - Sharon Yusuf RN - 06/04/2024 4:59 PM EDT 27w5d Pharmacy requesting alternative for pantoprazole. See note below. Pharmacy comment: Alternative Requested:THE PRESCRIBED MEDICATION IS NOT COVERED BY INSURANCE. PLEASE CONSIDER CHANGING TO ONE OF THE SUGGESTED COVERED ALTERNATIVES. All Pharmacy Suggested Alternatives: Esomeprazole Magnesium 10 mg packet omeprazole (PRILOSEC) 10 mg capsule lansoprazole (PREVACID) 15 mg capsule documented in this encounterTogus Va Medical Center04-02-2025 Progress note* Quick Notes - Amilcar Méndez APRN.CNM - 06/04/2024 4:49 PM EDT S: Stewart Zuniga is a 24 year old female [...] regular OB visit with 1 hour GCT Amilcar Méndez APRN.CNM [facility]04-02-2025 Miscellaneous Notes* Quick Notes - Amilcar Méndez APRN.CNM - 06/04/2024 4:49 PM EDT S: Stewart Zuniga is a 24 year old female [...] regular OB visit with 1 hour GCT Amilcar Méndez APRN.CNM documented in this encounterTogus [facility] Medical Center04-02-2025 Instructions* Patient Instructions* Manas Vogel MA - 06/04/2024 4:34 PM EDT SEQUENTIAL SCREENINGS The [facility] offers sequential screenings for women who are [...] testing. It will require an appointment withour electrocardiogram technician. This is not an ultrasound performed [...] the above symptoms, contact our office at [phone] and ask to speak with anurse. After hours, you can call doctors registry at [phone] OR call [facility] at [phone] ask to have the doctor decision science analyst paged. If you consider this an emergency, dial 3-8-2 or go to your nearest emergency department. NEED HELP? Are you dealing with a violent or abusive relationship? Are you a victim of rape or sexual assult? Call [facility] ([place]) 24 hour Crisis Hotline: 564.356.6282 or 647-632-1062. MANUAL Your Guide to a Healthy manual is now on-line. Visit [email or web address] to download your free copy documented in this encounterTogus [facility] Center04-02-2025 Telephone encounter Note * Telephone Encounter - Georgia Wren RN - 06/04/2024 3:54 PM EDT Called patient. Scheduled an appointment for today. Georgia Wren RN [facility]04-02-2025 Miscellaneous Notes* Telephone Encounter - Georgia Wren RN - 06/04/2024 3:54 PM EDT Called patient. Scheduled an appointment for today. Georgia Wren RN documented in this encounterTogus [facility] Medical Center04-02-2025 Telephone encounter Note * Telephone Encounter - Georgia Wren RN - 06/04/2024 3:50 PM EDT Spoke with CP. Ok for patient to come to office instead of L&d. Appointment given. Advised thatpatient call the office for urgent request such as decreased FM instead of a Mychart message. Georgia Wren RN [facility]04-02-2025 Miscellaneous Notes* Telephone Encounter - Georgia Wren [...] for an office visit? documented in this encounterTogus Va Medical Center04-02-2025 Telephone encounter Note * Telephone Encounter - Georgia Wren RN - 06/04/2024 2:44 PM EDT 27w5d Do you want her seen for an office visit? [facility]03-[facility] Progress note* Quick Notes - Georgia Lino MD - 05/08/2024 10:05 AM EST S: Stewart Zuniga is a 24 year old female [...] - TYPE + SCREEN Georgia Lino MD [facility]03-06-2025 Miscellaneous Notes* Quick Notes - Georgia Lino MD - 05/08/2024 10:05 AM EST S: Stewart Zuniga is a 24 year old female [...] SCREEN Georgia Lino MD documented in this encounterTogus Va Medical Center03-06-2025 Instructions* Patient Instructions* Manas Vogel MA - 05/08/2024 9:52 AM EST SEQUENTIAL SCREENINGS The [facility] offers sequential screenings for women who are [...] testing. It will require an appointment withour electrocardiogram technician. This is not an ultrasound performed [...] the above symptoms, contact our office at [phone] and ask to speak with anurse. After hours, you can call doctors registry at [phone] OR call [facility] at [phone] ask to have the doctor decision science analyst paged. If you consider this an emergency, dial 3-1-0 or go to your nearest emergency department. NEED HELP? Are you dealing with a violent or abusive relationship? Are you a victim of rape or sexual assult? Call [facility] ([place]) 24 hour Crisis Hotline: 392.425.5512 or 798-062-5285. MANUAL Your Guide to a Healthy manual is now on-line. Visit [email or web address] to download your free copy documented in this encounterTogus [facility] Center02-28-2025 Progress note* Quick Notes - Milly Singh [...] routine visit next week Milly Singh DO [facility]02-28-2025 Miscellaneous Notes* Quick Notes - Milly Singh [...] week Milly Singh DO documented in this encounterTogus Va Medical Center02-28-2025 Instructions* Patient Instructions* Amada Duran LPN - 05/02/2024 4:05 PM EST SEQUENTIAL SCREENINGS The [facility] offers sequential screenings for women who are [...] testing. It will require an appointment withour electrocardiogram technician. This is not an ultrasound performed [...] the above symptoms, contact our office at [phone] and ask to speak with anurse. After hours, you can call doctors registry at [phone] OR call [facility] at [phone] ask to have the doctor decision science analyst paged. If you consider this an emergency, dial 11-03-8 or go to your nearest emergency department. NEED HELP? Are you dealing with a violent or abusive relationship? Are you a victim of rape or sexual assult? Call [facility] ([place]) 24 hour Crisis Hotline: 533.133.7537 or 762-026-7341. MANUAL Your Guide to a Healthy manual is now on-line. Visit [email or web address] to download your free copy documented in this encounterTogus [facility] Center02-20-2025 Telephone encounter Note * Telephone Encounter - Sharon Yusuf RN - 2024 12:43 PM EST Patient's mother notified. Sharon Yusuf RN [facility]02-20-2025 Miscellaneous Notes* Telephone Encounter - Sharon Yusuf RN - 2024 12:43 PM EST Patient's mother notified. Sharon Yusuf RN * Telephone Encounter - Mathew Gaviria RN - 2024 12:16 PM EST Left message to call office. Mathew Gaviria RN * Telephone Encounter - Ambreen Romero MD - 2024 11:52 AM EST Zofran and imodium are her main options. I would recommend going to ED if any signs of dehydration. Ambreen Romero MD * Telephone Encounter - Sharon Yusuf RN - 2024 11:44 AM EST 21w6d Patient's mother calling for her. She has GI virus with vomiting and diarrhea for over 24 hours. Mother talked to provider decision science analyst early this morning and gave 2 imodium [...] to avoid ER if possible. Please advise. Sharon Yusuf RN documented in this encounterTogus [facility] Center02-20-2025 Telephone encounter Note * Telephone Encounter - Mathew Gaviria RN - 2024 12:16 PM EST Left message to call office. Mathew Gaviria RN [facility]02-20-2025 Telephone encounter Note* Telephone Encounter - Ambreen Romero MD - 2024 11:52 AM EST Zofran and imodium are her main options. I would recommend going to ED if any signs of dehydration. Ambreen Romero MD [facility] Work Phone: 1(225) 847-926802-20-2025 Telephone encounter Note* Telephone Encounter - Sharon Yusuf RN - 2024 11:44 AM EST 21w6d Patient's mother calling for her. She has GI virus with vomiting and diarrhea for over 24 hours. Mother talked to provider decision science analyst early this morning and gave 2 imodium [...] to avoid ER if possible. Please advise. Sharon Yusuf RN [facility]02-10-2025 Progress note* Quick Notes - Martha Santamaria APRN.DESTINEY - 04/14/2024 10:26 AM EST TAVARES-S: Stewart Zuniga is a 23 year old female [...] RTO in 4 weeks Martha Santamaria APRN.CNM [facility]02-[facility] Miscellaneous Notes* Quick Notes - Martha Santamaria APRN.CNM - 04/14/2024 10:26 AM EST TAVARES-S: Stewart Zuniga is a 23 year old female [...] weeks Martha Santamaria APRN.CNM documented in this encounterTogus Va Medical Center02-10-2025 Instructions* Patient Instructions* Bruno Srivastava MA - 04/14/2024 10:18 AM EST SEQUENTIAL SCREENINGS The [facility] offers sequential screenings for women who are [...] testing. It will require an appointment withour electrocardiogram technician. This is not an ultrasound performed [...] the above symptoms, contact our office at [phone] and ask to speak with anurse. After hours, you can call doctors registry at [phone] OR call [facility] at [phone] ask to have the doctor decision science analyst paged. If you consider this an emergency, dial 9-4-7 or go to your nearest emergency department. NEED HELP? Are you dealing with a violent or abusive relationship? Are you a victim of rape or sexual assult? Call [facility] ([place]) 24 hour Crisis Hotline: 648.687.8654 or 227-872-0747. MANUAL Your Guide to a Healthy manual is now on-line. Visit [email or web address] to download your free copy documented in this encounterTogus [facility] Medical Center02-04-2025 Progress note* Quick Notes - Ambreen Romero MD - 04/08/2024 9:07 AM EST [...] US scheduled Advised on hydration and zofran Ambreen Romero MD [facility] Work Phone: 1(313) 175-158402-04-2025 Miscellaneous Notes* Quick Notes - Ambreen Romero MD - 04/08/2024 9:07 AM EST [...] Anatomy US scheduled Advised on hydration and roberto Romero MD documented in this encounterTogus Va Medical Center02-04-2025 Instructions* Patient Instructions* Shantanu Gordon MA - 04/08/2024 8:57 AM EST SEQUENTIAL SCREENINGS The [facility] offers sequential screenings for women who are [...] testing. It will require an appointment withour electrocardiogram technician. This is not an ultrasound performed [...] the above symptoms, contact our office at [phone] and ask to speak with anurse. After hours, you can call [facility] at [phone] OR call [facility] at [phone] ask to have the doctor decision science analyst paged. If you consider this an emergency, dial 9-1-1 or go to your nearest emergency department. NEED HELP? Are you dealing with a violent or abusive relationship? Are you a victim of rape or sexual assult? Call [facility] ([place])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 Byrd MD [address] [place] [address] Primary Staff Physician Cardiology 12/24/23 Arnoldo Pablo MD [address] [place] [address] Line Fixer Pediatric Cardiology 12/24/23 Financial Representative Relationship Specialty Start Date End Date Kayleen Mckay MD (Fax) PCP - General Pediatrics 01/28/11 Jay Byrd MD [address] [place] [address] Primary Staff Physician Cardiology 12/24/23 Arnoldo Pablo MD [address] [place] [address] Line Fixer Pediatric Cardiology 12/24/23 Financial Representative Relationship Specialty Start Date End Date Kayleen Mckay MD (Fax) PCP - General Pediatrics 01/28/11 Jay Byrd MD [address] [place] [address] Primary Staff Physician Cardiology 12/24/23 Arnoldo Pablo MD [address] [facility] 5 [place], [place] [id number] Line Fixer Pediatric Cardiology 12/24/23 Team Status: Inactive Member Role Status Dates No Primary Care Physician Primary Care Provider Active Start: July 14, 2024 End: July 14, 2024 Amilcar Méndez CNM Attending Provider Active Start: July 14, 2024 End: July 14, 2024 Amilcar Méndez CNM Referring Provider Active Start: July 14, 2024 End: July 14, 2024 Financial Representative Relationship Specialty Start Date End Date Kayleen Mckay MD PCP - General Pediatrics 01/28/11 Jay Byrd MD [address] [place] [address] Primary Staff Physician Cardiology 12/24/23 Arnoldo Pablo MD [address] [facility] 5 [place] [address] Line Fixer Pediatric Cardiology 12/24/23 Team Status: Inactive Member Role Status Dates No Primary Care Physician Primary Care Provider Active Start: July 15, 2024 End: July 15, 2024 Dr. Ambreen Romero MD Attending Provider Active Start: July 15, 2024 End: July 15, 2024 Dr. Ambreen Romero MD Referring Provider Active Start: July 15, 2024 End: July 15, 2024 Financial Representative Relationship Specialty Start Date End Date Kayleen Mckay MD PCP - General Pediatrics 01/28/11 Jay Byrd MD [address] [place] [address] Primary Staff Physician Cardiology 12/24/23 Arnoldo Pablo MD [address] [place] [address] Line Fixer Pediatric Cardiology 12/24/23 Financial Representative Relationship Specialty Start Date End Date Kayleen Mckay MD PCP - General Pediatrics 01/28/11 Jay Byrd MD [address] [place] [address] Primary Staff Physician Cardiology 12/24/23 Arnoldo Pablo MD [address] [place] [address] Line Fixer Pediatric Cardiology 12/24/23 Financial Representative Relationship Specialty Start Date End Date Kayleen Mckay MD PCP - General Pediatrics 01/28/11 Jay Byrd MD [address] [place] [address] Primary Staff Physician Cardiology 12/24/23 Arnoldo Pablo MD [address] [place] [address] Line Fixer Pediatric Cardiology 12/24/23 Financial Representative Relationship Specialty Start Date End Date Kayleen Mckay MD (Fax) PCP - General Pediatrics 01/28/11 Jay Byrd MD [address] [place] [address] Primary Staff Physician Cardiology 12/24/23 Arnoldo Pablo MD [address] [place], [place] [id number] Line Fixer Pediatric Cardiology 12/24/23 Team Status: Inactive Member Role Status Dates No Primary Care Physician Primary Care Provider Active Start: August 07, 2024 End: August 07, 2024 Dr. [place] Lino MD Attending Provider Active Start: August 07, 2024 End: August 07, 2024 Dr. [place] Lino MD Referring Provider Active Start: August 07, 2024 End: August 07, 2024 Financial Representative Relationship Specialty Start Date End Date Kayleen Mckay MD PCP - General Pediatrics 01/28/11 Jay Byrd MD [address] [place] [address] Primary Staff Physician Cardiology 12/24/23 Arnoldo Pablo MD [address] [place], [place] [id number] Line Fixer Pediatric Cardiology 12/24/23 Financial Representative Relationship Specialty Start Date End Date Kayleen Mckay MD PCP - General Pediatrics 01/28/11 Jay Byrd MD [address] [place], [place] [address] Primary Staff Physician Cardiology 12/24/23 Arnoldo Pablo MD [address] [place] [address] Line Fixer Pediatric Cardiology 12/24/23 Financial Representative Relationship Specialty Start Date End Date Kayleen Mckay MD PCP - General Pediatrics 01/28/11 Jay Byrd MD [address] [place] [address] Primary Staff Physician Cardiology 12/24/23 Arnoldo Pablo MD [address] [place] [address] Line Fixer Pediatric Cardiology 12/24/23 Financial Representative Relationship Specialty Start Date End Date Kayleen Mckay MD (Fax) PCP - General Pediatrics 01/28/11 Jay Byrd MD [address] [place] [address] Primary Staff Physician Cardiology 12/24/23 Arnoldo Pablo MD [address] [place] [address] Line Fixer Pediatric Cardiology 12/24/23 Financial Representative Relationship Specialty Start Date End Date Kayleen Mckay MD (Fax) PCP - General Pediatrics 01/28/11 Jay Byrd MD [address] [place] [address] Primary Staff Physician Cardiology 12/24/23 Arnoldo Pablo MD [address] [place] [address] Line Fixer Pediatric Cardiology 12/24/23 Financial Representative Relationship Specialty Start Date End Date Kayleen Mckay MD (Fax) PCP - General Pediatrics 01/28/11 Jay Byrd MD [address] [place] [address] Primary Staff Physician Cardiology 12/24/23 Arnoldo Pablo MD [address] [place], [place] [id number] Line Fixer Pediatric Cardiology 12/24/23 Team Status: Active Member Role Status Dates No Primary Care Physician Primary Care Provider Active Start: August 07, 2024 End: August 07, 2024 Dr. Cailin Joy MD Attending Provider Activ e Start: August 07, 2024 End: August 07, 2024 Dr. [place] Lino MD Referring Provider Active Start: August 07, 2024 End: August 07, 2024 Team Status: Inactive Member Role Status Dates No Primary Care Physician Primary Care Provider Active Start: August 22, 2024 End: August 25, 2024 Dr. [place] Lino MD Admit Provider Active S tart: August 22, 2024 End: August 25, 2024 Dr. [place] Lino MD Attending Provider Active Start: August 22, 2024 End: August 25, 2024 Dr. [place] Lino MD Referring Provider Active Start: August 22, 2024 End: August 25, 2024 Financial Representative Relationship Specialty Start Date End Date Kayleen Mckay MD PCP - General Pediatrics 01/28/11 Jay Byrd MD [address] [place] [address] Primary Staff Physician Cardiology 12/24/23 Arnoldo Pablo MD [address] [place] [address] Line Fixer Pediatric Cardiology 12/24/23 Financial Representative Relationship Specialty Start Date End Date Kayleen Mckay MD PCP - General Pediatrics 01/28/11 Jay Byrd MD [address] [place] [address] Primary Staff Physician Cardiology 12/24/23 Arnoldo Pablo MD [address] [place] [address] Line Fixer Pediatric Cardiology 12/24/23 Financial Representative Relationship Specialty Start Date End Date Kayleen Mckay MD PCP - General Pediatrics 01/28/11 Jay Byrd MD [address] [place] [address] Primary Staff Physician Cardiology 12/24/23 Arnoldo Pablo MD [address] [place] [address] Line Fixer Pediatric Cardiology 12/24/23 Financial Representative Relationship Specialty Start Date End Date Kayleen Mckay MD PCP - General Pediatrics 01/28/11 Jay Byrd MD [address] [place] [address] Primary Staff Physician Cardiology 12/24/23 Arnoldo Pablo MD [address] [place] [address] Line Fixer Pediatric Cardiology 12/24/23 Financial Representative Relationship Specialty Start Date End Date Kayleen Mckay MD PCP - General Pediatrics 01/28/11 Jay Byrd MD [address] [place] [address] Primary Staff Physician Cardiology 12/24/23 Arnoldo Pablo MD [address] [place] [address] Line Fixer Pediatric Cardiology 12/24/23 Financial Representative Relationship Specialty Start Date End Date Kayleen Mckay MD PCP - General Pediatrics 01/28/11 Jay Byrd MD [address] [place] [address] Primary Staff Physician Cardiology 12/24/23 Arnoldo Pablo MD [address] [place] [address] Line Fixer Pediatric Cardiology 12/24/23 Financial Representative Relationship Specialty Start Date End Date Kayleen Mckay MD PCP - General Pediatrics 01/28/11 Jay Byrd MD [address] [place] [address] Primary Staff Physician Cardiology 12/24/23 Arnoldo Pablo MD [address] [place] [address] Line Fixer Pediatric Cardiology 12/24/23 Financial Representative Relationship Specialty Start Date End Date Kayleen Mckay MD PCP - General Pediatrics 01/28/11 Jay Byrd MD [address] [place], [place] [address] Primary Staff Physician Cardiology 12/24/23 Arnoldo Pablo MD [address] [facility] [address] [place] [address] Line Fixer Pediatric Cardiology 12/24/23 Source Comments (unrecognize d section and content) In the event this informatio n is protected by the Federal Confidentiality of Alcohol and Drug Abuse Patient Records regulations: The Federal rules restrict any use of the information to criminally investigate or prosecute any alcohol or drug abuse patient.[facility] CenterIn the event this information is protected by the Federal Confidentiality of Alcohol and Drug Abuse Patient Records regulations: The Federal rules restrict any use of the information to criminally investigate or prosecute any alcohol or drug abuse patient.[facility] CenterIn the event this information is protected by the Federal Confidentiality of Alcohol and Drug Abuse Patient Records regulations: The Federal rules restrict any use of the information to criminally investigate or prosecute any alcohol or drug abuse patient.[facility] CenterIn the event this information is protected by the Federal Confidentiality of Alcohol and Drug Abuse Patient Records regulations: The Federal rules restrict any use of the information to criminally investigate or prosecute any alcohol or drug abuse patient.[facility] CenterIn the event this information is protected by the Federal Confidentiality of Alcohol and Drug Abuse Patient Records regulations: The Federal rules restrict any use of the information to criminally investigate or prosecute any alcohol or drug abuse patient.[facility] CenterIn the event this information is protected by the Federal Confidentiality of Alcohol and Drug Abuse Patient Records regulations: The Federal rules restrict any use of the information to criminally investigate or prosecute any alcohol or drug abuse patient.[facility] CenterIn the event this information is protected by the Federal Confidentiality of Alcohol and Drug Abuse Patient Records regulations: The Federal rules restrict any use of the information to criminally investigate or prosecute any alcohol or drug abuse patient.[facility] CenterIn the event this information is protected by the Federal Confidentiality of Alcohol and Drug Abuse Patient Records regulations: The Federal rules restrict any use of the information to criminally investigate or prosecute any alcohol or drug abuse patient.[facility] CenterIn the event this information is protected by the Federal Confidentiality of Alcohol and Drug Abuse Patient Records regulations: The Federal rules restrict any use of the information to criminally investigate or prosecute any alcohol or drug abuse patient.[facility] CenterIn the event this information is protected by the Federal Confidentiality of Alcohol and Drug Abuse Patient Records regulations: The Federal rules restrict any use of the information to criminally investigate or prosecute any alcohol or drug abuse patient.[facility] CenterIn the event this information is protected by the Federal Confidentiality of Alcohol and Drug Abuse Patient Records regulations: The Federal rules restrict any use of the information to criminally investigate or prosecute any alcohol or drug abuse patient.[facility] CenterIn the event this information is protected by the Federal Confidentiality of Alcohol and Drug Abuse Patient Records regulations: The Federal rules restrict any use of the information to criminally investigate or prosecute any alcohol or drug abuse patient.[facility] CenterIn the event this information is protected by the Federal Confidentiality of Alcohol and Drug Abuse Patient Records regulations: The Federal rules restrict any use of the information to criminally investigate or prosecute any alcohol or drug abuse patient.[facility] CenterIn the event this information is protected by the Federal Confidentiality of Alcohol and Drug Abuse Patient Records regulations: The Federal rules restrict any use of the information to criminally investigate or prosecute any alcohol or drug abuse patient.[facility] CenterIn the event this information is protected by the Federal Confidentiality of Alcohol and Drug Abuse Patient Records regulations: The Federal rules restrict any use of the information to criminally investigate or prosecute any alcohol or drug abuse patient.[facility] CenterIn the event this information is protected by the Federal Confidentiality of Alcohol and Drug Abuse Patient Records regulations: The Federal rules restrict any use of the information to criminally investigate or prosecute any alcohol or drug abuse patient.[facility] CenterIn the event this information is protected by the Federal Confidentiality of Alcohol and Drug Abuse Patient Records regulations: The Federal rules restrict any use of the information to criminally investigate or prosecute any alcohol or drug abuse patient.[facility] CenterIn the event this information is protected by the Federal Confidentiality of Alcohol and Drug Abuse Patient Records regulations: The Federal rules restrict any use of the information to criminally investigate or prosecute any alcohol or drug abuse patient.[facility] CenterIn the event this information is protected by the Federal Confidentiality of Alcohol and Drug Abuse Patient Records regulations: The Federal rules restrict any use of the information to criminally investigate or prosecute any alcohol or drug abuse patient.[facility] CenterIn the event this information is protected by the Federal Confidentiality of Alcohol and Drug Abuse Patient Records regulations: The Federal rules restrict any use of the information to criminally investigate or prosecute any alcohol or drug abuse patient.[facility] CenterIn the event this information is protected by the Federal Confidentiality of Alcohol and Drug Abuse Patient Records regulations: The Federal rules restrict any use of the information to criminally investigate or prosecute any alcohol or drug abuse patient.[facility] CenterIn the event this information is protected by the Federal Confidentiality of Alcohol and Drug Abuse Patient Records regulations: The Federal rules restrict any use of the information to criminally investigate or prosecute any alcohol or drug abuse patient.[facility] CenterIn the event this information is protected by the Federal Confidentiality of Alcohol and Drug Abuse Patient Records regulations: The Federal rules restrict any use of the information to criminally investigate or prosecute any alcohol or drug abuse patient.[facility] CenterIn the event this information is protected by the Federal Confidentiality of Alcohol and Drug Abuse Patient Records regulations: The Federal rules restrict any use of the information to criminally investigate or prosecute any alcohol or drug abuse patient.[facility] CenterIn the event this information is protected by the Federal Confidentiality of Alcohol and Drug Abuse Patient Records regulations: The Federal rules restrict any use of the information to criminally investigate or prosecute any alcohol or drug abuse patient.[facility] CenterIn the event this information is protected by the Federal Confidentiality of Alcohol and Drug Abuse Patient Records regulations: The Federal rules restrict any use of the information to criminally investigate or prosecute any alcohol or drug abuse patient.[facility] CenterIn the event this information is protected by the Federal Confidentiality of Alcohol and Drug Abuse Patient Records regulations: The Federal rules restrict any use of the information to criminally investigate or prosecute any alcohol or drug abuse patient.[facility] CenterIn the event this information is protected by the Federal Confidentiality of Alcohol and Drug Abuse Patient Records regulations: The Federal rules restrict any use of the information to criminally investigate or prosecute any alcohol or drug abuse patient.[facility] CenterIn the event this information is protected by the Federal Confidentiality of Alcohol and Drug Abuse Patient Records regulations: The Federal rules restrict any use of the information to criminally investigate or prosecute any alcohol or drug abuse patient.[facility] CenterIn the event this information is protected by the Federal Confidentiality of Alcohol and Drug Abuse Patient Records regulations: The Federal rules restrict any use of the information to criminally investigate or prosecute any alcohol or drug abuse patient.[facility] CenterIn the event this information is protected by the Federal Confidentiality of Alcohol and Drug Abuse Patient Records regulations: The Federal rules restrict any use of the information to criminally investigate or prosecute any alcohol or drug abuse patient.[facility] CenterIn the event this information is protected by the Federal Confidentiality of Alcohol and Drug Abuse Patient Records regulations: The Federal rules restrict any use of the information to criminally investigate or prosecute any alcohol or drug abuse patient.[facility] CenterIn the event this information is protected by the Federal Confidentiality of Alcohol and Drug Abuse Patient Records regulations: The Federal rules restrict any use of the information to criminally investigate or prosecute any alcohol or drug abuse patient.[facility] CenterIn the event this information is protected by the Federal Confidentiality of Alcohol and Drug Abuse Patient Records regulations: The Federal rules restrict any use of the information to criminally investigate or prosecute any alcohol or drug abuse patient.[facility] Center[facility] the event this information is protected by the Federal Confidentiality of Alcohol and Drug Abuse Patient Records regulations: The Federal rules restrict any use of the information to criminally investigate or prosecute any alcohol or drug abuse patient.[facility] CenterIn the event this information is protected by the Federal Confidentiality of Alcohol and Drug Abuse Patient Records regulations: The Federal rules restrict any use of the information to criminally investigate or prosecute any alcohol or drug abuse patient.[facility] CenterIn the event this information is protected by the Federal Confidentiality of Alcohol and Drug Abuse Patient Records regulations: The Federal rules restrict any use of the information to criminally investigate or prosecute any alcohol or drug abuse patient.[facility] CenterIn the event this information is protected by the Federal Confidentiality of Alcohol and Drug Abuse Patient Records regulations: The Federal rules restrict any use of the information to criminally investigate or prosecute any alcohol or drug abuse patient.[facility] CenterIn the event this information is protected by the Federal Confidentiality of Alcohol and Drug Abuse Patient Records regulations: The Federal rules restrict any use of the information to criminally investigate or prosecute any alcohol or drug abuse patient.[facility] CenterIn the event this information is protected by the Federal Confidentiality of Alcohol and Drug Abuse Patient Records regulations: The Federal rules restrict any use of the information to criminally investigate or prosecute any alcohol or drug abuse patient.[facility] CenterIn the event this information is protected by the Federal Confidentiality of Alcohol and Drug Abuse Patient Records regulations: The Federal rules restrict any use of the information to criminally investigate or prosecute any alcohol or drug abuse patient.[facility] CenterIn the event this information is protected by the Federal Confidentiality of Alcohol and Drug Abuse Patient Records regulations: The Federal rules restrict any use of the information to criminally investigate or prosecute any alcohol or drug abuse patient.[facility] the event this information is protected by the Federal Confidentiality of Alcohol and Drug Abuse Patient Records regulations: The Federal rules restrict any use of the information to criminally investigate or prosecute any alcohol or drug abuse patient.[facility] CenterIn the event this information is protected by the Federal Confidentiality of Alcohol and Drug Abuse Patient Records regulations: The Federal rules restrict any use of the information to criminally investigate or prosecute any alcohol or drug abuse patient.[facility] CenterIn the event this information is protected by [...] or prosecute any alcohol or drug abuse patient.[facility] CenterIn the event this information is protected by the Federal Confidentiality of Alcohol and Drug Abuse Patient Records regulations: The Federal rules restrict any use of the information to criminally investigate or prosecute any alcohol or drug abuse patient.[facility] CenterIn the event this information is protected by the Federal Confidentiality of Alcohol and Drug Abuse Patient Records regulations: The Federal rules restrict any use of the information to criminally investigate or prosecute any alcohol or drug abuse patient.[facility] CenterIn the event this information is protected by the Federal Confidentiality of Alcohol and Drug Abuse Patient Records regulations: The Federal rules restrict any use of the information to criminally investigate or prosecute any alcohol or drug abuse patient.[facility] CenterIn the event this information is protected by the Federal Confidentiality of Alcohol and Drug Abuse Patient Records regulations: The Federal rules restrict any use of the information to criminally investigate or prosecute any alcohol or drug abuse patient.[facility] CenterIn the event this information is protected by the Federal Confidentiality of Alcohol and Drug Abuse Patient Records regulations: The Federal rules restrict any use of the information to criminally investigate or prosecute any alcohol or drug abuse patient.[facility] CenterIn the event this information is protected by the Federal Confidentiality of Alcohol and Drug Abuse Patient Records regulations: The Federal rules restrict any use of the information to criminally investigate or prosecute any alcohol or drug abuse patient.[facility] CenterIn the event this information is protected by the Federal Confidentiality of Alcohol and Drug Abuse Patient Records regulations: The Federal rules restrict any use of the information to criminally investigate or prosecute any alcohol or drug abuse patient.[facility] CenterIn the event this information is protected by the Federal Confidentiality of Alcohol and Drug Abuse Patient Records regulations: The Federal rules restrict any use of the information to criminally investigate or prosecute any alcohol or drug abuse patient.[facility] CenterIn the event this information is protected by the Federal Confidentiality of Alcohol and Drug Abuse Patient Records regulations: The Federal rules restrict any use of the information to criminally investigate or prosecute any alcohol or drug abuse patient.[facility] CenterIn the event this information is protected by the Federal Confidentiality of Alcohol and Drug Abuse Patient Records regulations: The Federal rules restrict any use of the information to criminally investigate or prosecute any alcohol or drug abuse patient.[facility] CenterIn the event this information is protected by the Federal Confidentiality of Alcohol and Drug Abuse Patient Records regulations: The Federal rules restrict any use of the information to criminally investigate or prosecute any alcohol or drug abuse patient.[facility] CenterIn the event this information is protected by the Federal Confidentiality of Alcohol and Drug Abuse Patient Records regulations: The Federal rules restrict any use of the information to criminally investigate or prosecute any alcohol or drug abuse patient.[facility] CenterIn the event this information is protected by the Federal Confidentiality of Alcohol and Drug Abuse Patient Records regulations: The Federal rules restrict any use of the information to criminally investigate or prosecute any alcohol or drug abuse patient.[facility] CenterIn the event this information is protected by the Federal Confidentiality of Alcohol and Drug Abuse Patient Records regulations: The Federal rules restrict any use of the information to criminally investigate or prosecute any alcohol or drug abuse patient.[facility] CenterIn the event this information is protected by the Federal Confidentiality of Alcohol and Drug Abuse Patient Records regulations: The Federal rules restrict any use of the information to criminally investigate or prosecute any alcohol or drug abuse patient.[facility] CenterIn the event this information is protected by the Federal Confidentiality of Alcohol and Drug Abuse Patient Records regulations: The Federal rules restrict any use of the information to criminally investigate or prosecute any alcohol or drug abuse patient.[facility] CenterIn the event this information is protected by the Federal Confidentiality of Alcohol and Drug Abuse Patient Records regulations: The Federal rules restrict any use of the information to criminally investigate or prosecute any alcohol or drug abuse patient.[facility] CenterIn the event this information is protected by the Federal Confidentiality of Alcohol and Drug Abuse Patient Records regulations: The Federal rules restrict any use of the information to criminally investigate or prosecute any alcohol or drug abuse patient.[facility] CenterIn the event this information is protected by the Federal Confidentiality of Alcohol and Drug Abuse Patient Records regulations: The Federal rules restrict any use of the information to criminally investigate or prosecute any alcohol or drug abuse patient.[facility] CenterIn the event this information is protected by the Federal Confidentiality of Alcohol and Drug Abuse Patient Records regulations: The Federal rules restrict any use of the information to criminally investigate or prosecute any alcohol or drug abuse patient.[facility] CenterIn the event this information is protected by the Federal Confidentiality of Alcohol and Drug Abuse Patient Records regulations: The Federal rules restrict any use of the information to criminally investigate or prosecute any alcohol or drug abuse patient.[facility] CenterIn the event this information is protected by the Federal Confidentiality of Alcohol and Drug Abuse Patient Records regulations: The Federal rules restrict any use of the information to criminally investigate or prosecute any alcohol or drug abuse patient.[facility] CenterIn the event this information is protected by the Federal Confidentiality of Alcohol and Drug Abuse Patient Records regulations: The Federal rules restrict any use of the information to criminally investigate or prosecute any alcohol or drug abuse patient.[facility] CenterIn the event this information is protected by the Federal Confidentiality of Alcohol and Drug Abuse Patient Records regulations: The Federal rules restrict any use of the information to criminally investigate or prosecute any alcohol or drug abuse patient.[facility] CenterIn the event this information is protected by the Federal Confidentiality of Alcohol and Drug Abuse Patient Records regulations: The Federal rules restrict any use of the information to criminally investigate or prosecute any alcohol or drug abuse patient.[facility] CenterIn the event this information is protected by the Federal Confidentiality of Alcohol and Drug Abuse Patient Records regulations: The Federal rules restrict any use of the information to criminally investigate or prosecute any alcohol or drug abuse patient.[facility] CenterIn the event this information is protected by the Federal Confidentiality of Alcohol and Drug Abuse Patient Records regulations: The Federal rules restrict any use of the information to criminally investigate or prosecute any alcohol or drug abuse patient.[facility] CenterIn the event this information is protected by the Federal Confidentiality of Alcohol and Drug Abuse Patient Records regulations: The Federal rules restrict any use of the information to criminally investigate or prosecute any alcohol or drug abuse patient.[facility] CenterIn the event this information is protected by the Federal Confidentiality of Alcohol and Drug Abuse Patient Records regulations: The Federal rules restrict any use of the information to criminally investigate or prosecute any alcohol or drug abuse patient.[facility] CenterIn the event this information is protected by the Federal Confidentiality of Alcohol and Drug Abuse Patient Records regulations: The Federal rules restrict any use of the information to criminally investigate or prosecute any alcohol or drug abuse patient.[facility] Reason for Visit (unrecogniz ed section and content) Reason Comments Shoulder Injury L shoulder Reason Onset Date Comments Palpitations 12/24/2023 Reason Comments Event ZIO PATCH Reason Onset Date Comments Care 02/18/2024 Reason Comments US Specialty Diagnoses / Procedures Referred By Contac t Referred To Contact [facility] Diagnoses 7 weeks gestation of Procedures NUCHAL TRANSLUCENCY WHI US NUCHAL TRANSLUCENCY 1ST GESTATION Angie Ocasio, [place].[employer]OR [address] [place] [address] [place] [phone] Referral ID Status Reason Start Date Expiration Date V isits Requested Visits Authorized [id number] Closed Auto-Generate d Referral 01/14/2024 01/13/2025 1 1 Reason Onset Date Comments Care 03/06/2024 Reason Onset Date Comments Care 03/17/2024 Reason Comments Knee Injury R knee injury x toda y Reason Onset Date Comments Arrhythmia 03/28/2024 Reason Onset Date Comments Care 04/08/2024 Reason Onset Date Comments Care 04/14/2024 Specialty Diagnoses / Procedures Referred By Contac t Referred To Contact [facility] Diagnoses 12 weeks gestation of Encounter for supervision of normal first in second trimester Procedures OBSTETRIC ULTRASOUND WHI US PREG UTERUS AFTER 1ST TRIMEST GESTATION Martha Santamaria APRN.CNM [address] [place] [address] Phone: tel: fax: [address] [phone] Referral ID Status Reason Start Date Expiration Date V isits Requested Visits Authorized [id number] Closed Auto-Generate d Referral 02/18/2024 02/17/2025 1 [...] 08/19/2024 Reason Onset Date Comments Care 08/22/2024 Reason Comments Patient Update Reason Comments Early Reason Comments Routine Back pain Reason Comments Follow Up Incision Check Reason Comments No Show Specialty Diagnoses / Procedures Referred By Contac t Referred To Contact Diagnoses History of depression History of anxiety Procedures CONSULT TO [facility]OM[facility] OFFICE/OUTPATIENT [facility] 60 MINUTES Milly Singh MD [address] [place] [address] Phone: tel: fax: Referral ID Status Reason Start Date Expiration Date V isits Requested Visits Authorized [id number] Closed PCP Requested Referral 09/11/2024 09/11/2025 1 1 Reason Comments Care Headaches Reason Comments Problem Visit Patient reported hea vy menses, with small clotting. Reason Comments AUB C/s 08/24/2024- start ed bleeding 10/10/2024 on and off since then- when on its very heavy going through 12 pads/tampons in a 24 hr period Reason Comments Patient Update Reason Comments Derm Problem redness and tender o n lower left abdominal area from seat belt hitting incision x 10 days Reason Comments Contraception INFORMATION SOURCE (unrecogn ized section and content) DATE CREATED AUTHOR 05/03/2023 [facility] DATE CREATED AUTHOR AUTHOR'S ORGANIZ ATION 07/11/2024 [facility] DATE CREATED AUTHOR AUTHOR'S ORGANIZ ATION 07/18/2024 [facility] DATE CREATED AUTHOR AUTHOR'S ORGANIZ ATION 09/28/2024 [facility] DATE CREATED AUTHOR AUTHOR'S ORGANIZ ATION 10/11/2024 [facility] DATE CREATED AUTHOR AUTHOR'S ORGANANGELINA ATION 11/14/2024 [facility] FOR RECORDS PERTAINING TO PATIENTS WHO [...] BE BASED ON THE PRIMARY CLINICAL RECORDS. [employer] [facility]. provides no warranty or guarantee of the accuracy or completeness of information in this document.
== END 2024-11-15 12:45 | disposition home or self-care (01) ==
LOC: ED 12:40
PROVIDERS: Emergency Provider Emergency Medicine; Visit Provider Emergency Medicine
DX: M25.552 Pain in left hip (principal)
CPT/HCPCS: 73502; 99282

== ENCOUNTER 2024-11-15 17:26 | Emergency (ER) | payer OTHER, SELFPAY ==
[2024-11-15 17:28] VITALS: BP 139/91; PULSE 78; RESP 16; TEMP 37.1; O2SAT 98; BMI 27.9
--- NOTE | 2024-11-15 17:50 | EDS_ITS ---
HPI History of Present Illness Chief Complaint: Abd Pain Detail of Chief Complaint: Left inguinal pain that is 50, 000 times worse. Informant: patient Onset/Context/Timing Onset: Weeks (Pain has been intermittent past 2 weeks. She does have increased pain when she sits and moves compared to just standing still. She denies radicular pain. She denies paresthesia or anesthesia. She denies) Context: Gradual Onset Timing: Intermittent Quality: Pain Location: Left inguinal region inferior lateral aspect of incision Current Severity: Mild Maximum Severity: Severe Worsened by: Walking and palpation Relieved by: Standing still Associated Symptoms Associated Symptoms: No nausea or vomiting. No urologic symptoms. Narrative Narrative: Patient is a 24-year-old female. She was seen earlier today by Dr. Dandy diaz. Dr. Diaz thought she had problems with her anterior inferior and superior iliac spine and felt this pain was musculoskeletal. She dysuria, frequency, urgency or hematuria. Denies vaginal bleeding or discharge. She denies fever, chills night sweats. Prior similar symptoms: Yes Recent [facility] Medical History delivery delivered Depression Anxiety Physical exam, pre-employment Palpitations Chest pain PVCs (premature ventricular contractions) Cephalgia Contact with and (suspected) exposure to other viral communicable diseases Strain of right knee Home Medications ?Medication ?Instructions ?Recorded ?Last Taken ?Type acetaminophen 325 mg tablet 325 mg PO ONCE PRN fever o r pain 12/08/21 Unknown History (Tylenol) metoprolol succinate 25 mg 25 mg PO DAILY PVC 07/14/24 08/22/24 History tablet,extended release 24 hr vit no.95-ferrous 1 tab PO DAILY 08/22/24 History fumarate 28 mg-folic acid 800 mcg tablet () pantoprazole 20 mg tablet,delayed 20 mg PO DAILY heart burn 08/07/24 08/21/24 History release (Protonix) sertraline 25 mg tablet (Zoloft) 25 mg PO DAILY depres arturo and 08/07/24 08/06/24 History anxiety hydrocodone-acetaminophen 5-325mg 1 tab PO Q6H PRN PRN Pain 2 days 11/15/24 Unknown Rx 5mg-325mg #5 TABLETS naproxen 500 mg tablet 500 mg PO BID PRN pain #14 t abs 11/15/24 Unknown Rx Allergy/AdvReac Type Severity Reaction Status Date / Time lactose Allergy Mild Unknown Verified 11/15/24 17:27 adhesive (adhesives) AdvReac Severe Rash Verified 11/15/24 17:27 Family History Grandmother Heart disease Parkinsons Cancer Grandfather Cancer Surgical History Hx of arthroscopy of right knee Social History household members: spouse housing: house Smoking Status: Never smoker alcohol intake: never substance use type: does not use caffeine: Yes ROS ROS ED Constitutional Constitutional ED: Denies chills, fever(s), subjective or sweats Gastrointestinal Gastrointestinal: Denies abdominal pain, constipation, diarrhea, melena, nausea or vomiting Genitourinary Genitourinary ED: Denies dysuria, hematuria or urinary frequency Musculoskeletal Musculoskeletal: Denies back pain Integumentary Denies rash Neurologic Neurologic: Denies paresthesias or weakness EXAM Physical Exam Const Vital Signs: 11/15/24 17:28 Temperature 98.7 F Temperature Source Oral Pulse Rate 78 Respiratory Rate 16 Blood Pressure 139/91 H Blood Pressure Mean 107 Pulse Ox 98 Oxygen Delivery Method Room Air Positive well nourished and well developed Constitutional Narrative: Patient does not look He walked in from the restroom to her examination room, room 8. There is no limp. There is no grimacing with gait. General Appearance ED: well developed and pallor HEENT Reports moist mucous membranes HEENT Narrative: Head is atraumatic normocephalic. Ears are normal. Eyes PERRL and EOMs intact bilaterally Resp normal respiratory effort Cardio regular rate and regular rhythm GI normal to inspection, nondistended, normoactive bowel sounds, non-tender and non-distended; Negative for hepatosplenomegaly or no masses Narrative: scar healing without evidence of infection. Inferior to the left lateral aspect of the incision is point tenderness. There is minimal tenderness over the anterior superior iliac spine. I elicited no tenderness over the anterior inferior iliac spine. More importantly Flaco Jeff 4 test did not cause any discomfort. Having her abduct and adduct against resistance did not cause any groin pain. She has a bulge in area of tenderness that is suggestive of a direct hernia on the left. I informed her I am concerned she may have a small hernia she informing that Dr. Genesis Islas thought she had a hernia as well. Femoral pulses palpable. There is no inguinal lymphadenopathy. Back/Spine no CVA tenderness Extremity normal to inspection General Extremety ED: Negative for edema or tenderness General Extremity: Negative for edema Neuro oriented x3 and CN's II-XII intact bilaterally Sensorium / Orientation: alert Psych Psych Narrative: Affect is flat. Skin no rashes or lesions noted, no wounds and skin turgor normal General Skin Exam: elasticity normal and pallor; Negative for jaundice MDM MDM MDM Narrative Medical decision making narrative: Patient was prescribed NSAID. She admitted she has not filled the prescription. Suspect patient has a small direct hernia. Will treat with opiate analgesic here in the department. She will be discharged home with appropriate home-going instruction and instructed to follow-up with Dr. Rosas who is on for general surgery since she has never seen a surgeon. History & Record Review Additional record(s) reviewed:: Prior ED visit Discharge Plan Triage Chief Complaint: Abd Pain ED Provider: Chapin Wagner Dx/Rx/DC Orders Clinical Impression: Direct inguinal hernia of left side, Elevated blood-pressure reading without diagnosis of hypertension Instructions: ED Hernia (Adult) Prescriptions: New hydrocodone-acetaminophen 5-325 mg tablet 1 tab PO Q6H PRN PRN (Reason: Pain) 2 Days Qty: 5 0RF No Action acetaminophen [Tylenol] 325 mg tablet 325 mg PO ONCE PRN (Reason: fever or pain) pantoprazole [Protonix] 20 mg tablet,delayed release (DR/EC) 20 mg PO DAILY sertraline [Zoloft] 25 mg tablet 25 mg PO DAILY PNV no.95-ferrous fumarate-FA [] 28 mg iron- 800 mcg tablet 1 tab PO DAILY metoprolol succinate 25 mg tablet extended release 24 hr 25 mg PO DAILY naproxen 500 mg tablet 500 mg PO BID PRN (Reason: pain) Qty: 14 0RF Primary Care Provider: Care Physician,No Primary Referrals: Jose Haywood MD [Med Staff - Active Staff] - 1-2 Weeks Care Physician,No Primary [Primary Care Provider] - Activity Restrictions/Additional Instructions: Return if you have a bulge in your groin, severe pain that is intolerable, have a bulge with nausea and vomiting return immediately Print Language: [place] Disposition Disposition: Home, Self Care
--- OUTSIDE RECORDS SUMMARY | 2024-11-15 18:02 | XMS RPT_ITS | CCD ---
Author Organization [facility] Care Team Providers Care Ob Gyn Name Role Phone Dr. Kayleen Mckay Primary [...] Primary Care Provider Jay Byrd MD Unavailable Arnoldo Pablo MD Unavailable [phone] Care Physician, No Primary Primary Care Provider Unavailable Lazara ALBERTS, Dr. Harrington Attending Provider [phone] Len Haile DO Emergency Provider Violeta ALBERTS, Dr. David Emergency Provider Holland [...] Unavailable Rufino SANTIAGO, Dr. Simeon Attending Provider Holland SANTIAGO, Dr. Ho Admit Provider MOISE MEADE Attending Unavailable MILLY SINGH Referring Unavailable KAYLEEN MCKAY Primary Care Unavailable MOISE MEADE Attending Unavailable KAYLEEN MCKAY Primary Care Unavailable Rubio Paulino Attending Unavailable Rubio Paulino Referring Unavailable Care Physician, No Primary Primary Care Unava ilable Kayleen Mckay Primary Care Unavailable Antoine Dodson [...] Unava ilable Leo, Kayleen Primary Care Unavailable Mckay, Kayleen Referring Unavailable Nilton Garcia Attending Unavailable Leo, Kayleen Primary Care Unavailable Mckay, Kayleen Referring Unavailable Nilton Garcia Attending Unavailable Ambreen Romero Attending Unavailable Ambreen Romero Referring Unavailable Care Physician, No Primary Primary Care Unava ilable Georgia Lino Referring Unavailable Care Physician, No Primary Primary Care Unava ilable Georgia Lino Attending Unavailable Georgia Lino Admitting Unavailable Care Physician, No Primary Primary Care Unava ilable Georgia Lino Attending Unavailable Georgia Lino Referring Unavailable MCKAYCLARIBELE MARIAJOSE Primary Care Unavailable NAREN JC Attending Unavailable CLARIBEL MCKAYE MARIAJOSE Primary Care Unavailable ANGIE OCASIO Referring Unavailable MCKAYKAYLEEN Primary Care Unavailable KAYLEEN MCKAY Primary Care Unavailable DULCE GLENDY Referring Unavailable MCKAYKAYLEEN Primary Care Unavailable GENESIS MARTINEZ Attending Unavailable GEORGIA LINO Attending Unavailable KAYLEEN MCKAY MARIAJOSE Primary Care Unavailable MCKAYKAYLEEN MARIAJOSE Primary Care Unavailable MILLY SINGH Attending Unavailable MARTHA SANTAMARIA Attending Unavailable KAYLEEN MCKAY MARIAJOSE Primary Care Unavailable GEORGIA LINO Attending Unavailable KAYLEEN MCKAY Primary Care Unavailable MARTHA SANTAMARIA Referring Unavailable KAYLEEN MCKAY Primary Care Unavailable AMBREEN ROMERO Attending Unavailable KAYLEEN MCKAY MARIAJOSE Primary Care Unavailable JAY BYRD Attending Unavailable KAYLEEN MCKAY Primary Care Unavailable JAY BYRD Referring Unavailable MCKAYKAYLEEN MARIAJOSE Primary Care Unavailable GEORGIA LINO Attending Unavailable KAYLEEN MCKAY MARIAJOSE Primary Care Unavailable AMILCAR MÉNDEZ Attending Unavailable CLARIBEL MCKAYE MARIAJOSE Primary Care Unavailable MCKAY, KAYLEEN MARIAJOSE Primary Care Unavailable ROSENDO MILLY Attending Unavailable GEORGIA LINO Attending Unavailable MCKAY, KAYLEEN MARIAJOSE Primary Care Unavailable AMILCAR MÉNDEZ Attending Unavailable MCKAY, KAYLEEN MARIAJOSE Primary Care Unavailable GEORGIA LINO Attending Unavailable MCKAY, KAYLEEN MARIAJOSE Primary Care Unavailable MCKAY, KAYLEEN MARIAJOSE Primary Care Unavailable KAHLIL ESCOBAR Attending Unavail able GEORGIA LINO Attending Unavailable MCKAY, KAYLEEN MARIAJOSE Primary Care Unavailable GEORGIA LINO Attending Unavailable MCKAY, KAYLEEN MARIAJOSE Primary Care Unavailable ARMAAN BYRDIN Z Referring Unavailable MCKAY, KAYLEEN MARIAJOSE Primary Care Unavailable MICHELLE JAY Z Referring Unavailable MCKAY, KAYLEEN MARIAJOSE Primary Care Unavailable AMILCAR MÉNDEZ Attending Unavailable MCKAY, KAYLEEN MARIAJOSE Primary Care Unavailable GEORGIA LINO Attending Unavailable MCKAY, KAYLEEN MARIAJOSE Primary Care Unavailable ERIC SANTAMARIASSICA Referring Unavailable MCKAY, KAYLEEN MARIAJOSE Primary Care Unavailable ARMAAN BYRDIN Z Referring Unavailable MCKAY, KAYLEEN MARIAJOSE Primary Care Unavailable MCKAY, KAYLEEN MARIAJOSE Primary Care Unavailable GENESIS MARTINEZ Attending Unavailable MCKAY, KAYLEEN MARIAJOSE Primary Care Unavailable GENESIS MARTINEZ Attending Unavailable MCKAY, KAYLEEN MARIAJOSE Primary Care Unavailable FLAQUITA ROMERO Attending Unavailable GEORGIA LINO Attending Unavailable MCKAY, KAYLEEN MARIAJOSE Primary Care Unavailable MCKAY, KAYLEEN MARIAJOSE Primary Care Unavailable BHARGAVIALVAREZEE Attending Unavailable MCKAY, KAYLEEN MARIAJOSE Primary Care Unavailable BHARGAVI ANGIE Attending Unavailable MCKAY, KAYLEEN MARIAJOSE Primary Care Unavailable BHARGAVI, ANGIE Referring Unavailable ALLY SANTAMARIAICA Attending Unavailable MCKAY, KAYLEEN MARIAJOSE Primary Care Unavailable BHARGAVI, ANGIE Referring Unavailable MCKAY, KAYLEEN MARIAJOSE Primary Care Unavailable BHARGAVI, ANGIE Referring Unavailable GEORGIA LINO Attending Unavailable MCKAY, KAYLEEN MARIAJOSE Primary Care Unavailable MCKAY, KAYLEEN MARIAJOSE Primary Care Unavailable ROSENDO MILLY Attending Unavailable SANTAMARIA, MARTHA Referring Unavailable WAGNER MARTHA Attending Unavailable MCKAY, KAYLEEN MARIAJOSE Primary Care Unavailable MCKAY, KAYLEEN MARIAJOSE Primary Care Unavailable ROSENDO MILLY Attending Unavailable ARMAAN BYRDIN Z Attending Unavailable MCKAY, KAYLEEN MARIAJOSE Primary Care Unavailable ARNOLDO PABLO Referring Unavailable Care Physician, No Primary Primary Care Provider Unavailable Holland SANTIAGO, Dr. Ho Attending Provider Dr. Georgia Lino MD Referring Provider Reginald SANTIAGO, Dr. Dorman Emergency Provider Allergies Allergy Classification Reported Allergen(s) Allergy Type Date of Onset Reaction(s) Facility (20 sources) Lactose; Translations: [LACTOSE] Drug Allergy 2 GI Upset [facility] (1 source) MILK-RELATED COMPOUNDS; Translations: [MILK-RELATED COMPOUNDS] Propensity to adverse reactions to drug (disorder) [facility] Repository (20 sources) Adhesive agent; Translations: [ADHESIVE] Drug Allergy [address] [facility] Comment on above: holter patches (1 source) Adhesive agent Drug allergy (disorder) 5 [facility] Repository (1 source) Lactose Drug Allergy 5 [facility] (8 sources) Adhesive agent Drug Allergy [address] [facility] Medications Current Medications Medication Drug Class(es) Dates Sig (Normalized) Sig (Original) acetaminophen 325 mg oral tablet (13 sources) Start: 12-08-2021 take 1 tablet by [...] mg PO DAILY July 14, 2024 12:00am PVC Start: 10-22-2022 End: 08-10-2023 take 2 tablets by mouth every twenty-four hours at bedtime Metoprolol Succinate 25 mg tablet extended release 24 hr Discontinued 12.5 mg PO AT BEDTIME October 22, 2022 12:00am August 10, 2023 10:44am Start: 10-22-2022 take 12.5 mg by mouth at bedti ga Metoprolol Succinate Active 12.5 MG PO AT BEDTIME October 22, 2022 12:00am Start: 07-26-2022 take 1 tablet by lizeth th every twenty-four hours metoprolol succinate ER (TOPROL XL) 25 mg 24 hr tablet Take by mouth. 07/26/2022 Active Comment on above: Take by mouth. naproxen 500 mg oral tablet (7 sources) Nonsteroidal Anti-inflammatory Drug Start: 11-15-2024 take 1 tablet by mouth twice daily as needed for pain Naproxen 500 mg tablet Active 500 mg PO TWICE A DAY as needed for pain 14 0 November 15, 2024 12:00am Start: 10-21-2024 take 1 tablet by lizeth every eight hours as needed naproxen (NAPROSYN) 375 mg tablet Take 1 tablet by mouth three times a day as needed (headache). 60 tablet 1 10/21/2024 Active pantoprazole 20 mg delayed release oral tablet (20 sources) Proton Pump Inhibitor Start: 06-13-2024 End: 08-29-2024 take 1 tablet by mouth once daily Pantoprazole (Protonix) 20 mg tablet,delayed release (DR/EC) Active 20 mg PO DAILY August 07, 2024 12:00am heartburn Start: 06-04-2024 End: 06-04-2024 take 1 tablet by mouth once daily pantoprazole DR (PROTONIX) 20 mg tablet Take 1 tablet by mouth once daily. 90 tablet 06/04/2024 06/04/2024 Discontinued Pnv Cmb#95-Ferrous Fumarate-Fa () 28 mg iron- 800 mcg tablet (4 sources) Start: 07-14-2024 Pnv Cmb#95-Ferrous Fumarate-Fa () 28 mg iron- 800 mcg tablet Active 1 {tbl} PO DAILY July 14, 2024 12:00am Pnv No.95-Ferrous Fumarate-Fa () 28 mg iron- 800 mcg tablet (1 source) Start: 07-14-2024 Pnv No.95-Ferrous Fumarate-Fa () 28 mg iron- 800 mcg tablet Active 1 {tbl} PO DAILY July 14, 2024 12:00am [id number] acid ( 19) 29 mg iron- 1 mg (20 sources) Start: 05-02-2024 take 1 tablet by mouth once daily [id number] acid ( 19) 29 mg iron- 1 mg Take 1 tablet by mouth once daily. 100 tablet 3 05/02/2024 Active sertraline 50 mg oral tablet (20 sources) Serotonin Reuptake Inhibitor Start: 09-11-2024 take 1.5 tablets by mouth once daily [...] take 1 tablet by mouth once daily Sertraline (Zoloft) 25 mg tablet Active 25 mg PO DAILY August 07, 2024 12:00am depression and anxiety SUMAtriptan 50 mg oral tablet (6 sources) [...] mg PO THREE TIMES A DAY 30 10 0 September 25, 2019 12:00am October 04, 2019 12:00am October 05, 2019 12:03am Start: 05-01-2019 End: 05-11-2019 take 2 capsules by mouth twice daily Amoxicillin 500 mg capsule Discontinued 1000 mg PO TWICE A DAY 40 10 May 01, 2019 1:00am May 10, 2019 [...] tablet Discontinued 1 {tbl} PO Q12H 20 10 0 January 10, 2024 1:00am January 19, 2024 1:00am January 20, 2024 1:09am Acute sinusitis, unspecified Start: 06-15-2023 End: 06-25-2023 Amoxicillin-Pot Clavulanate 875-125 mg tablet Discontinued 1 {tbl} PO Q12H 20 10 0 June 15, 2023 12:00am June 24, 2023 12:00am June 25, 2023 12:05am Acute sinusitis, unspecified Start: 01-10-2021 End: 01-20-2021 Amoxicillin-Pot Clavulanate (Augmentin) 875-125 mg tablet Discontinued 1 {tbl} PO Q12H 20 10 0 January 10, 2021 1:00am January 19, 2021 1:00am January 20, 2021 1:01am Acute sinusitis, unspecified Start: 10-15-2018 End: 01-31-2019 take 1 tablet by mouth every twelve hours Amoxicillin-Pot Clavulanate 875 MG tablet Discontinued 875 mg PO Q12H 20 0 October 15, 2018 12:00am January 31, 2019 [...] 14, 2024 12:00am August 25, 2024 7:14am prophylatic Start: 01-14-2024 End: 08-29-2024 take 1 tablet by mouth once daily aspirin, enteric coated (ECOTRIN LOW STRENGTH) 81 mg EC tablet Indications: 7 weeks gestation of (HCC) Take 1 tablet by mouth once daily. 90 tablet 3 01/14/2024 08/29/2024 Discontinued atropine sulfate 0.025 mg / diphenoxylate hydrochloride 2.5 mg oral tablet (10 sources) Anticholinergic, Cholinergic Muscarinic Antagonist, Antidiarrheal Start: 10-22-2022 End: 08-10-2023 Diphenoxylate-Atropine 2.5-0.025 mg tablet Discontinued {tbl} October 22, 2022 12:00am August 10, 2023 10:44am Start: 10-22-2022 Diphenoxylate- Atropine Active TABLET October 22, 2022 12:00am bisoprolol fumarate 5 mg oral tablet (7 sources) beta-Adrenergic Reuben Start: 08-10-2023 End: 07-14-2024 take 1 tablet by mouth once daily Bisoprolol Fumarate 5 mg tablet Discontinued 5 mg PO DAILY 30 5 August 10, 2023 12:00am July 14, 2024 2:45pm cefdinir 300 mg oral capsule (12 sources) Cephalosporin Antibacterial Start: 03-19-2022 End: 10-22-2022 take 1 capsule by mouth twice daily Cefdinir 300 mg capsule Discontinued 300 mg PO TWICE A DAY 20 0 March 19, 2022 1:00am October 22, 2022 5:47pm Right otitis media Otitis media, unspecified, right ear cephalexin 500 mg oral capsule (15 sources) Cephalosporin Antibacterial Start: 02-08-2021 End: 02-18-2021 take 1 capsule by mouth every twelve hours Cephalexin 500 mg capsule Discontinued 500 mg PO Q12H 20 10 0 February 08, 2021 1:00am February 17, 2021 1:00am February 18, 2021 1:02am cyclobenzaprine hydrochloride 5 mg oral tablet (13 sources) Muscle Relaxant Start: 12-07-2021 End: 03-16-2022 take 1 tablet by mouth at bedtime as needed for muscle spasms Cyclobenzaprine 5 mg tablet Discontinued 5 mg PO AT BEDTIME as needed for muscle spasm 14 0 December 07, 2021 12:00am March 16, 2022 10:04am dicyclomine hydrochloride 10 mg oral capsule (10 sources) Anticholinergic Start: 10-22-2022 End: 08-10-2023 Dicyclomine 10 mg capsule Discontinued mg October 22, 2022 12:00am August 10, 2023 10:44am Start: 10-22-2022 Dicyclomine Ac tive MG October 22, 2022 12:00am Ethinyl Estradiol / norgestimate (16 sources) Progestin, Estrogen Start: 12-25-2018 End: 04-14-2023 [...] daily. fexofenadine hydrochloride 180 mg oral tablet (7 sources) Histamine-1 Receptor Antagonist Start : 08-09 End: 07-14 take 1 tablet by mouth once daily as needed Fexofenadine (Raquel Allergy) 180 mg tablet Discontinued 180 mg PO DAILY as needed August 10, 2023 12:00am July 14, 2024 2:45pm fluticasone propionate 0.05 mg/actuat metered dose nasal spray (7 sources) Corticosteroid Start : 01-09 End: 07-14 take 50 ug nasal route once daily Fluticasone Propionate (Flonase Allergy Relief) 50 mcg/actuation spray,suspension Discontinued 2 NMA INTRANASAL daily 16 0 January 10, 2024 1:00am July 14, 2024 2:45pm administer into each nostril methylPREDNISolone 4 mg oral tablet (13 sources) Corticosteroid Start : 09-26 End: 10-02 take 1 tablet by mouth once Methylprednisolone (Medrol (Pineda)) 4 mg tablets,dose pack Discontinued 4 mg PO per package directions 21 6 0 September 26, 2021 12:00am October 01, 2021 12:00am October 02, 2021 12:04am nitrofurantoin, macrocrystals 25 mg / nitrofurantoin, monohydrate 75 mg oral capsule (16 sources) Nitrofuran Antibacterial Start : 07-14 End: 08-29 take 1 capsule by mouth twice daily at mealtime Nitrofurantoin Monohyd/M-Cryst (Macrobid) 100 mg capsule Discontinued 100 mg PO TWICE A DAY 10 5 0 July 14, 2024 12:00am August 07, 2024 [...] omeprazole 10 mg delayed release oral capsule (19 sources) Proton Pump Inhibitor Start: 06-04-2024 End: [...] 8 HOURS NEEDED as needed for Nausea 10 March 24, 2024 1:00am August 25, 2024 [...] Ac tive MG October 22, 2022 12:00am predniSONE 10 mg oral tablet (20 sources) Start: 10-23-2023 End: 01-10-2024 take 3 tablets by mouth once daily, then take 2 tablets by mouth once daily, then take 1 tablet by mouth once daily Prednisone 10 mg tablet Discontinued 10 mg PO DAILY 18 0 October 23, 2023 12:00am January 10, 2024 [...] pain] Onset: 11-12-2024 10-22-2022 Episodic Administrative/social admission (10 sources) Patient encounter status; Translations: [Encounter for pre-employment examination] Onset: 10-23-2023 10-17-2023 Episodic Anxiety disorders (20 sources) Mixed anxiety and depressive disorder; Translations: [Other specified anxiety disorders] Onset: 01-31-2021 01-14-2024 Chronic Cardiac dysrhythmias (20 sources) Multiple premature ventricular complexes; Translations: [Ventricular premature depolarization] Onset: 12-24-2023 11-13-2023 Chronic Cardiac dysrhythmias (19 sources) Tachycardia; Translations: [Tachycardia, unspecified] Onset: 12-18-2023 12-24-2023 Episodic Contraceptive and procreative management (2 sources) Encounter for initial prescription of contraceptive pills; Translations: [Encounter for other general counseling and advice on contraception] Onset: 09-29-2024 Episodic E Codes: Fall (8 sources) Fall; Translations: [Unspecified fall, initial encounter] 07-06-2023 Episodic Early or threatened labor (20 sources) Uterine contractions present; Translations: [False labor, unspecified] Onset: 07-14-2024 Resolved: 08-29-2024 07-14-2024 Episodic Headache; including migraine (1 source) Migraine; Translations: [Migraine, unspecified, not intractable, without status migrainosus] 10-06-2024 Chronic Headache; including migraine (2 sources) Tension-type headache; Translations: [Tension-type headache, unspecified, intractable] Onset: 10-21-2024 10-21-2024 Episodic Immunizations and screening for infectious disease (15 sources) Contact with and (suspected) exposure to [...] involving emotional state] Onset: 08-29-2024 05-02-2024 Episodic Nonspecific chest pain (20 sources) Chest pain; Translations: [Chest pain, unspecified] Onset: 11-24-2023 07-12-2020 Episodic Other complications of ; puerperium affecting management of mother (1 source) Complication of , childbirth and/or the puerperium; Translations: [Other complications of the puerperium, not elsewhere classified] 09-02-2024 Episodic Other complications of ; puerperium affecting management of mother (1 source) Other complications of the puerperium, not elsewhere classified; Translations: [ pain (HCC)] Onset: 09-02-2024 Episodic Other complications of (20 sources) Vomiting of , unspecified; Translations: [Unspecified vomiting of , unspecified as to episode of care or not applicable] Onset: 02-18-2024 Resolved: 08-29-2024 02-18-2024 Episodic Other complications of (20 sources) RhD negative; Translations: [Other specified related conditions, unspecified trimester] Onset: 03-18-2024 Resolved: 08-29-2024 03-18-2024 Episodic Other complications of (2 sources) Low back pain in ; Translations: [Other specified related conditions, third trimester] 07-07-2024 Episodic Other complications of (11 sources) High risk ; Translations: [Supervision of high risk , unspecified, third trimester] 07-11-2024 Episodic Other complications of (9 sources) Uterine contractions problem; Translations: [Other specified [...] [Patellar tendinitis] Episodic Other connective tissue disease (7 sources) Tendonitis of right patellar tendon; Translations: [...] of vagina] 07-14-2024 Episodic Other gastrointestinal disorders (10 sources) Constipation; Translations: [Constipation, unspecified] 10-22-2022 Episodic Other injuries and conditions due to external causes (2 sources) Injury of right knee; Translations: [Unspecified injury of right lower leg, initial encounter] 03-18-2024 Episodic Other injuries and conditions due to external causes (4 sources) Injury of abdomen; Translations: [Unspecified injury of abdomen, initial encounter] 08-07-2024 Episodic Other injuries and conditions due to external causes (2 sources) Other specified injuries of thorax, initial encounter; Translations: [Contusion of rib on right side] 03-13-2017 Episodic Other lower respiratory disease (12 sources) Dyspnea; Translations: [Shortness of breath] 06-15-2024 [...] in joint, shoulder region] 04-14-2023 Episodic Other non-traumatic joint disorders (1 source) Hip pain; Translations: [Pain in left hip] 11-15-2024 Episodic Other and delivery including normal (20 sources) with uncertain dates; Translations: [Encounter for supervision of normal , unspecified, unspecified trimester] Onset: 01-14-2024 Resolved: 08-29-2024 01-14-2024 Episodic Other upper respiratory infections (20 sources) Acute ethmoidal sinusitis; Translations: [Acute ethmoidal sinusitis, unspecified] Episodic Otitis media and related conditions (14 sources) Otitis media; Translations: [Otitis media, unspecified, right ear] 03-19-2022 Episodic Residual codes; unclassified (15 sources) Pain; Translations: [Pain, unspecified] 05-05-2021 Episodic [...] of ] 06-04-2024 Episodic Residual codes; unclassified (10 sources) Gestation period, 29 weeks; Translations: [29 [...] of ] 08-19-2024 Episodic Residual codes; unclassified (5 sources) Gestation period, 39 weeks; Translations: [39 weeks gestation of ] 08-22-2024 Episodic Residual codes; unclassified (4 sources) Gestation period, 36 weeks; Translations: [36 [...] of ; Translations: [38 weeks gestation of ([facility])] Onset: 08-19-2024 Episodic Screening and history of [...] [place] Onset: 01-14-2024 01-14-2024 Unclassified (1 source) No-show for appointment; Translations: [No-show for appointment] Onset: 09-17-2024 Unclassified (1 source) Other specified diseases and conditions complicating ; Translations: [Other specified diseases and conditions complicating ] Onset: 06-19-2024 Unclassified (1 source) Low back pain during in third trimester ([facility]); Translations: [Low back pain during in third trimester ([facility])] Onset: 07-07-2024 Past or Other Problems Problem Classification Problem Date Documented Da te Episodic/Chronic Other complications of (20 sources) Complication occurring during ; Translations: [ complication before ] Onset: 02-19-2024 Resolved: 08-29-2024 02-19-2024 Episodic Other complications of (20 sources) Heartburn; Translations: [Other specified related conditions, second trimester] Onset: 06-04-2024 Resolved: 08-29-2024 06-04-2024 Episodic Other complications of (20 sources) Reduced movement; Translations: [Decreased movements, second trimester, not applicable or unspecified] Onset: 06-04-2024 Resolved: 06-27-2024 06-04-2024 Episodic Other complications of (1 source) Supervision of high risk , unspecified, third trimester; Translations: [Supervision of high risk in third trimester ([facility])] Onset: 07-24-2024 Episodic Other complications of (2 sources) Other specified related conditions, third trimester; Translations: [Low back pain during in third trimester ([facility])] Onset: 06-04-2024 Episodic Other complications of (1 source) Other specified related conditions, unspecified trimester; Translations: [Rh negative state in antepartum period ([facility])] Onset: 03-18-2024 Episodic Other female genital disorders (1 source) Other specified noninflammatory disorders of vagina; Translations: [Vaginal discharge] Onset: 07-14-2024 Episodic Other gastrointestinal disorders (1 source) Heartburn; Translations: [Heartburn during in third trimester ([facility])] Onset: 06-04-2024 Episodic Other injuries and conditions [...] Resolved: 08-29-2024 06-27-2024 Episodic Residual codes; unclassified (1 source) 37 weeks gestation of ; Translations: [37 weeks gestation of ([facility])] Onset: 08-11-2024 Episodic Residual codes; unclassified (1 source) 34 weeks gestation of ; Translations: [34 weeks gestation of ([facility])] Onset: 07-24-2024 Episodic Residual codes; unclassified (1 source) 33 weeks gestation of ; Translations: [33 weeks gestation of ([facility])] Onset: 07-14-2024 Episodic Residual codes; unclassified (1 source) 32 weeks gestation of ; Translations: [32 weeks gestation of ([facility])] Onset: 07-07-2024 Episodic Residual codes; unclassified (1 source) 31 weeks gestation of ; Translations: [31 weeks gestation of ([facility])] Onset: 06-27-2024 Episodic Residual codes; unclassified (1 source) Unspecified blood type, Rh negative; Translations: [Rh negative state in antepartum period ([facility])] Onset: 03-18-2024 Episodic Residual codes; unclassified (1 source) 23 weeks gestation of ; Translations: [23 weeks gestation of ([facility])] Onset: 06-13-2024 Episodic Residual codes; unclassified (1 source) 12 weeks gestation of ; Translations: [12 weeks gestation of ] Onset: 02-18-2024 Episodic Residual codes; unclassified (1 source) Less than 8 weeks gestation of ; Translations: [7 weeks gestation of ] Onset: 03-17-2024 Episodic Unclassified (4 sources) Planned procedure 08-22-2024 Results Test Name Value Interpretation Reference Range Facil ity CNOVon 11-14-2024 CNOV Office Visit (OBGYWM) KENIASTEWART ALCALA ([id number]) 4 F Date Time Provider Department 11/14/24 2:20 PM GEORGIA LINO [id number] During your visit today, we recorded the [...] Living1 SAB0 IAB0 Ectopic0 Multiple0 Live Births1 Hairspring Truer History LMP: 11/11/2024 (Exact Date), Age at Menarche: Age at First : Age at Menopause: Hairspring Truer History Comments: Sexual Activity: Not Currently; Male [...] Take 50 mg by mouth once daily.) [id number] acid ( 19) 29 mg iron- 1 [...] Prescriptions as of 11/14/2024 - Drospirenone-Ethinyl Estradiol (RONNIE 28,) 3-0.02 mg per tablet Take 1 [...] 1.5 tablets by mouth once daily. - [id number] acid ( 19) 29 mg iron- 1 mg Take 1 tablet by mouth once daily. - metoprolol succinate ER (TOPROL XL) 25 mg 24 hr tablet Take by mouth. Problem List As Of Date 11/14/2024 Noted Resolved Encounter for supervision of ivanna (more content not included)... Normal [facility] CNOVon 11-12-2024 CNOV Office Visit (WOUCA) STEWART ZUNIGA ([id number]) 4 F Date Time Provider Department 11/12/24 11:30 AM FLAQUITA ROMERO During your visit today, we recorded the following information about you: Temperature Pulse Respiration Blood pressure 98.1 degrees 116/minute 16/minute 110/72 Weight 66.2 kg Flaquita Romero APRN.CNP 11/12/2024 12:39 PM Signed URGENT CARE WARNER Subjective Stewart Zuniga is a 24 year old [...] Procedures Cecille Forrest NP student TEACHING PROVIDER (Physician/PA/PET STORE MERCHANDISER) NOTE OF PERSONAL INVOLVEMENT IN CARE: I have personally seen and examined the patient and performed the medical decision-making components. I have reviewed the Advanced Practice Registered Nurse (PET STORE MERCHANDISER) Student's documentation and verified the findings in [...] 1.5 tablets by mouth once daily. - ns252-uuze-hmhsy acid ( 19) 29 mg iron- 1 [...] adulthood [Z91.410] 02/18/2024 Nausea and vomiting in ([facility]) [O21.9] 02/18/2024 08/29/2024 31 weeks gestation of ([facility]) [Z3A.31] 02/18/2024 08/29/2024 M-Power [O99.891] 02/19/2024 08/29/2024 Rh negative state in antepartum period ([facility]) [O*03/18/2024 08/29/2024 Heartburn during in second trimester *06/04/2024 08/29/2024 Decreased movements in second trimester (*06/04/2024 06/27/2024 Threatened premature labor in third trimester (*07/17/2024 (more content not included)... 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 Patient reports changing [...] uterine bleeding (AUB) [N93.9] Order(s):PELVIC US WHI [6329113] Order #: [id number]: 1 FUTURE Prescriptions as of 10/24/2024 - [...] 1.5 tablets by mouth once daily. - sf308-fbha-jnlyi acid ( 19) 29 mg iron- 1 [...] 08/29/2024 Rh negative state in antepartum period ([facility]) [O*03/18/2024 08/29/2024 Heartburn during in second trimester *06/04/2024 08/29/2024 Decreased movements in second trimester (*06/04/2024 06/27/2024 Threatened premature labor in third trimester (*07/17/2024 08/29/2024 33 weeks gestation of (HCC) [Z3A.33] 07/17/2024 08/29/2024 History of [Z98.891] 09/29/2024 Encounter Status:Closed by KORI FORTUNE on 10/24/24 [facility] CNOVon 10-21-2024 CNOV Office Visit (OBGYWM) STEWART ZUNIGA ([id number]) 4 F Date Time Provider Department 10/21/24 11:10 AM GENESIS MARTINEZ OBGYWM During your visit today, we recorded the following information about you: Blood pressure Weight Last Period 110/74 65.3 kg 10/10/24 Genesis Martinez MD 10/21/2024 11:10 AM Signed Obstetrics and Gynecology [place] WATER/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 Patient/authorized insurance claims representative agreed to proceed CHIEF COMPLAINT: The [...] Living1 SAB0 IAB0 Ectopic0 Multiple0 Live Births1 Hairspring Truer History LMP: 10/10/2024 (Exact Date), Age at Menarche: Age at First : Age at Menopause: Hairspring Truer History Comments: Sexual Activity: Not Currently; Male [...] Take 1.5 tablets by mouth once daily. je468-ffsu-nkkmk acid ( 19) 29 mg iron- 1 [...] discussed with the Patient or Patient's Authorized Picture Booker. As applicable, any other physician, advance practice provider, medical student, or other health professional student that will be observing or involved in the sensitive examination for educational or training purposes was discussed with the Patient or Authorized Picture Booker. The Patient or Authorized Picture Booker has agreed to proceed with the sensitive examination. (Sensitive examination includes inspection and/or pal (more content not included)... Normal [facility] CNOVon 10-13-2024 CNOV Office Visit (OBGYWM) STEWART ZUNIGA ([id number]) 4 F Date Time Provider Department 10/13/24 1:00 PM ANGIE OCASIO OBGYWM During your visit today, we recorded the following information about you: Blood pressure Weight Last Period 110/68 65 kg 10/09/24 Angie Ocasio APRN.STUDIO SET UP WORKER 10/13/2024 1:19 PM Signed Obstetrics and Gynecology [place] WATER/WASTEWATER ENGINEER Visit Subjective Recording using IRIS.TV software for draft documentation of the visit was discussed with the patient/authorized insurance claims representative; all questions welcomed and answered. Patient/authorized insurance claims representative agreed to proceed CHIEF COMPLAINT: The [...] Living1 SAB0 IAB0 Ectopic0 Multiple0 Live Births1 Hairspring Truer History LMP: 10/09/2024 (Exact Date), Age at Menarche: Age at First : Age at Menopause: Hairspring Truer History Comments: Sexual Activity: Yes; Male Contraception: [...] Take 1.5 tablets by mouth once daily. xy419-cruh-ibthe acid ( 19) 29 mg iron- 1 [...] mg tab (more content not included)... Normal [facility] CNOVon 10-06-2024 CNOV Office Visit (OBGYWM) STEWART ZUNIGA ([id number]) 4 F Date Time Provider Department 10/06/24 2:45 PM AMILCAR MÉNDEZ OBGYWM During your visit today, we recorded [...] Take 1.5 tablets by mouth once daily. gx293-imei-auspz acid ( 19) 29 mg iron- 1 [...] or vision changes- notify office BP stable care consultant Support provided Possible consult to headache clinic Amilcar Méndez APRN.CNM Allergies As of Date: 10/06/2024 Noted Allergy Reaction ADHESIVE 10/23/2023 4 - Hives LACTOSE 10/23/2023 8 - GI Upset Date Reviewed: 10/06/2024 Reviewed by: Amilcar Méndez APRN.CNM - Fully Assessed Reason for Visit: Care [85] Cmt: Headaches Primary Visit Diagnosis:Migraine without status migrainosus, not intractable, unspecified migraine type [G43.909] Other Visit Diagnosis:Lactating mother (HCC) [Z39.1] Prescriptions as of 10/06/2024 - Norethindrone, Contraceptive, 0.35 mg tablet Take 1 tablet by mouth once daily. - sertraline (ZOLOFT) 50 mg tablet Take 1.5 tablets by mouth once daily. - oh524-sjsn-ajuwe acid ( 19) 29 mg iron- 1 [...] 08/29/2024 Rh negative state in antepartum period ([facility]) [O*03/18/2024 08/29/2024 Heartburn during in second trimester *06/04/2024 08/29/2024 Decreased movements in second trimester (*06/04/2024 06/27/2024 Threatened premature labor in third trimester (*07/17/2024 08/29/2024 33 weeks gestation of (HCC) [Z3A.33] 07/17/2024 08/29/2024 History of [Z98.891] 09/29/2024 Encounter Status:Closed by AMILCAR MÉNDEZ on 10/06/24 Normal [facility] Sheila 10-06-2024 CNPN Telephone (CAMERONGYWM) STEWART ZUNIGA ([id number]) 4 F Date Time Provider Department 10/06/24 MARTHA SANTAMARIA During your visit today, we recorded the following information about you: Juju You, PEACE 10/06/2024 12:47 PM Signed Delivered 08/24/24 c/s at [facility]. Last 4 days has had headache-located temporal and radiates to frontal-described as sharp/stabbing. Staying hydrated. Getting enough sleep. Does not feel like under more stress than normal. Has tried taking tylenol 1000mg o6xlbdh PRN, ibuprofen 400mg v5nogfh PRN, heat, ice. Nothing working. Denies vision [...] - Fully Assessed Reason for Visit: Headaches [3461] Prescriptions as of 10/09/2024 - Norethindrone, Contraceptive, 0.35 mg tablet Take 1 tablet by mouth once daily. - sertraline (ZOLOFT) 50 mg tablet Take 1.5 tablets by mouth once daily. 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 - zy899-cpya-gvftl acid ( 19) 29 mg iron- 1 [...] [O21.9] 02/18/2024 08/29/2024 31 weeks gestation of ([facility]) [Z3A.31] 02/18/2024 08/29/2024 M-Power [O99.891] 02/19/2024 08/29/2024 Rh negative state in antepartum period ([facility]) [O*03/18/2024 08/29/2024 Heartburn during in second trimester *06/04/2024 08/29/2024 Decreased movements in second trimester (*06/04/2024 06/27/2024 Threatened premature labor in third trimester (*07/17/2024 08/29/2024 33 weeks gestation of (HCC) [Z3A.33] 07/17/2024 08/29/2024 Encounter Status:Closed by BLANCA RAMIREZ on 09/12/24 Normal [facility] Absolute lymphocyte countOrd ered By: Georgia Lino on 08-25-2024 Lymphocytes Auto (Unsp spec) [#/Vol] 2.36 10*3/uL 0.83-4.51 [facility] Absolute neutrophil countOrd ered By: Georgia Lino on 08-25-2024 Neutrophils (Bld) [#/Vol] 11.1 10*3/uL High 2.0-7.7 [facility] Automated lymphocyte count a s percentage of total leukocytesOrdered By: Georgia Lino on 08-25-2024 Lymphocytes/100 WBC Auto (Unsp spec) 15.8 % Low 19-41 [facility] Basophil percentageOrdered B y: Georgia Lino on 08-25-2024 Basophils/100 WBC (Bld) 0.3 % 0-1 [facility] CBC W/Diff, Automatedon 08-04 Absolute Lymph 2.36 X10 3/uL Normal 0.83-4.51 [facility] Comment on above: Performed By: #### L 100.0100 #### [facility] [address] [place], [address] Absolute Neut 11.1 X10 3/uL High 2.0-7.7 [facility] Comment on above: Performed By: #### L 100.0100 #### [facility] [address] [place], [address] Basophils/100 WBC (Bld) 0.3 % Normal 0-1 [facility] Comment on above: Performed By: #### L 100.0100 #### [facility] [address] [place], [address] Eosinophils/100 WBC (Bld) 2.5 % Normal 0-5 [facility] Comment on above: Performed By: #### L 100.0100 #### [facility] [address] [place], [address] Erythrocyte distribution width (RBC) [Ratio] 13.8 % Normal 11.6-14.6 [facility] Comment on above: Performed By: #### L 100.0100 #### [facility] [address] [place], [address] Hematocrit (Bld) [Volume fraction] 28.9 % Low 37-47 [facility] Comment on above: Performed By: #### L 100.0100 #### [facility] [address] [place], [address] Hemoglobin (Bld) [Mass/Vol] 9.6 g/dL Low 12.0-15.0 [facility] Comment on above: Performed By: #### L 100.0100 #### [facility] [address] [place], [address] IG% 0.600 Normal 0.0-0.9 [facility] Comment on above: Result Comment: IG% - Immature Granulocytes (promyelocytes, myelocytes and metamyelocytes) > 1% indicates that a LEFT SHIFT is Present. Performed By: #### L 100.0100 #### [facility] [address] [place], [address] Lymphocytes/100 WBC (Bld) 15.8 % Low 19-41 [facility] Comment on above: Performed By: #### L 100.0100 #### [facility] [address] [place], [address] MCH (RBC) [Entitic mass] 31.8 pg Normal 27.0-32.0 [facility] Comment on above: Performed By: #### L 100.0100 #### [facility] [address] [place], [address] MCHC (RBC) [Mass/Vol] 33.2 g/dL Normal 32-36 [facility] Comment on above: Performed By: #### L 100.0100 #### [facility] [address] [place], [address] MCV (RBC) [Entitic vol] 95.7 fL Normal 81-99 [facility] Comment on above: Performed By: #### L 100.0100 #### [facility] [address] [place], [address] Monocytes/100 WBC (Bld) 6.7 % Normal 0-10 [facility] Comment on above: Performed By: #### L 100.0100 #### [facility] [address] [place], [address] Neutrophils/100 WBC (Bld) 74.1 % High 47-70 [facility] Comment on above: Performed By: #### L 100.0100 #### [facility] [address] [place], [address] Nucleated RBC (Bld) [#/Vol] 0 10*3/uL Normal 0-5 [facility] Comment on above: Performed By: #### L 100.0100 #### [facility] [address] [place], [address] Platelet mean volume (Bld) [Entitic vol] 10.3 fL Normal 6.2-12.0 [facility] Comment on above: Performed By: #### L 100.0100 #### [facility] [address] [place], [address] Platelets (Bld) [#/Vol] 179 10*3/uL Normal 150-450 [facility] Comment on above: Performed By: #### L 100.0100 #### [facility] [address] [place], [address] RBC (Bld) [#/Vol] 3.02 10*6/uL Low 4.2-5.[address] [facility] Comment on above: Performed By: #### L 100.0100 #### [facility] [address] [place], [address] RDW SD 48.1 fl High 35.1-43.9 [facility] Comment on above: Performed By: #### L 100.0100 #### [facility] [address] [place], [address] WBC (Bld) [#/Vol] 14.9 10*3/uL High 4.4-11.[address] [facility] Comment on above: Performed By: #### L 100.0100 #### [facility] [address] [place], [place], [id number] CBC-Complete Blood Cnt No Di ffon 08-25-2024 Erythrocyte distribution width (RBC) [Ratio] 14.6 % Normal 11.6-14.6 [facility] Comment on above: Order Comment: Comme nts: Day #1Reason for Laboratory Test Result Comment: @PER BRANDIE KESSLER TO CANCEL TEST. WRONG PATIENT.08/25/2024 0612-TPARSONS Performed By: #### L 100.0500 ####[facility] [address] [place], [place], [phone](085) Hematocrit (Bld) [Volume fraction] 29.3 % Low 37-47 [facility] Comment on above: Order Comment: Comme nts: Day #1Reason for Laboratory Test Result Comment: @PER BRANDIE KESSLER TO CANCEL TEST. WRONG PATIENT.08/25/2024 0612-TPARSONS Performed By: #### L 100.0500 ####[facility] [address] [place], [place], [address] Hemoglobin (Bld) [Mass/Vol] 9.7 g/dL Low 12.0-15.0 [facility] Comment on above: Order Comment: Comme nts: Day #1Reason for Laboratory Test Result Comment: @PER BRANDIE KESSLER TO CANCEL TEST. WRONG PATIENT.08/25/2024 0612-TPARSONS Performed By: #### L 100.0500 ####[facility] [address] [place], [place], [phone](925) MCH (RBC) [Entitic mass] 29.1 pg Normal 27.0-32.0 [facility] Comment on above: Order Comment: Comme nts: Day #1Reason for Laboratory Test Result Comment: @PER BRANDIE KESSLER TO CANCEL TEST. WRONG PATIENT.08/25/2024 0612-TPARSONS Performed By: #### L 100.0500 ####[facility] [address] [place], [address](261) MCHC (RBC) [Mass/Vol] 33.1 g/dL Normal 32-36 [facility] Comment on above: Order Comment: Comme nts: Day #1Reason for Laboratory Test Result Comment: @PER BRANDIE KESSLER TO CANCEL TEST. WRONG PATIENT.08/25/2024 0612-TPARSONS Performed By: #### L 100.0500 ####[facility] [address] [place], [address](514) MCV (RBC) [Entitic vol] 88.0 fL Normal 81-99 [facility] Comment on above: Order Comment: Comme nts: Day #1Reason for Laboratory Test Result Comment: @PER BRANDIE KESSLER TO CANCEL TEST. WRONG PATIENT.08/25/2024 0612-TPARSONS Performed By: #### L 100.0500 ####[facility] [address] [place], [place], [phone](843) Platelet mean volume (Bld) [Entitic vol] 11.7 fL Normal 6.2-12.0 [facility] Comment on above: Order Comment: Comme nts: Day #1Reason for Laboratory Test Result Comment: @PER BRANDIE KESSLER TO CANCEL TEST. WRONG PATIENT.08/25/2024 0612-TPARSONS Performed By: #### L 100.0500 ####[facility] [address] [place], [address] Platelets (Bld) [#/Vol] 166 10*3/uL Normal 150-450 [facility] Comment on above: Order Comment: Comme nts: Day #1Reason for Laboratory Test Result Comment: @PER BRANDIE KESSLER TO CANCEL TEST. WRONG PATIENT.08/25/2024 0612-TPARSONS Performed By: #### L 100.0500 ####[facility] [address] [place], [address] RBC (Bld) [#/Vol] 3.33 10*6/uL Low 4.2-5.[address] [facility] Comment on above: Order Comment: Comme nts: Day #1Reason for Laboratory Test Result Comment: @PER BRANDIE KESSLER TO CANCEL TEST. WRONG PATIENT.08/25/2024 0612-TPARSONS Performed By: #### L 100.0500 ####[facility] [address] [place], [address] RDW SD 46.3 fl High 35.1-43.9 [facility] Comment on above: Order Comment: Comme nts: Day #1Reason for Laboratory Test Result Comment: @PER BRANDIE KESSLER TO CANCEL TEST. WRONG PATIENT.08/25/2024 0612-TPARSONS Performed By: #### L 100.0500 ####[facility] [address] [place], [place], [phone]([phone] WBC (Bld) [#/Vol] 22.1 10*3/uL High 4.4-11.[address] [facility] Comment on above: Order Comment: Comme nts: Day #1Reason for Laboratory Test Result Comment: @PER BRANDIE KESSLER TO CANCEL TEST. WRONG PATIENT.08/25/2024 0612-TPARSONS Performed By: #### L 100.0500 ####[facility] [address] [place], [place], [phone] Eosinophil percentageOrdered By: Georgia Lino on 08-25-2024 Eosinophils/100 WBC (Bld) 2.5 % 0-5 [facility] Erythrocyte distribution wid th ratioOrdered By: Georgia Lino on 08-25-2024 Erythrocyte distribution width (RBC) [Ratio] 13.8 % 11.6-14.6 [facility] Erythrocyte distribution wid th standard deviationOrdered By: Georgia Lino on 08-25-2024 Erythrocyte distribution width (RBC) [Ratio] 48.1 fl High 35.1-43.9 [facility] Hematocrit Auto (Bld) [Volum e fraction]Ordered By: Georgia Lino on 08-25-2024 Hematocrit (Bld) [Volume fraction] 28.9 % Low 37-47 [facility] Hemoglobin measurementOrdere d By: Georgia Lino on 08-25-2024 Hemoglobin (Bld) [Mass/Vol] 9.6 g/dL Low 12.0-15.0 [facility] Immature granulocytes/100 WB C Auto (Bld)Ordered By: Georgia Lino on 08-25-2024 Immature granulocytes/100 WBC (Bld) 0.600 % 0.0-0.9 [facility] Comment on above: IG% - Immature Granu locytes (promyelocytes, myelocytes and metamyelocytes) > 1% indicates that a LEFT SHIFT is Present. MCV (mean corpuscular volume ) determinationOrdered By: Georgia Lino on 08-25-2024 MCV (RBC) [Entitic vol] 95.7 fL 81-99 [facility] Mean corpuscular hemoglobin (MCH) determinationOrdered By: Georgia Lino on 08-25-2024 MCH (RBC) [Entitic mass] 31.8 pg 27.0-32.0 [facility] Mean corpuscular hemoglobin concentration (MCHC) determinationOrdered By: Georgia Lino on 08-25-2024 MCHC (RBC) [Mass/Vol] 33.2 g/dL 32-36 [facility] Mean platelet volume determi nationOrdered By: Georgia Lino on 08-25-2024 Platelet mean volume (Bld) [Entitic vol] 10.3 fL 6.2-12.0 [facility] Monocyte percentageOrdered B y: Georgia Lino on 08-25-2024 Monocytes/100 WBC (Bld) 6.7 % 0-10 [facility] Neutrophil percentageOrdered By: Georgia Lino on 08-25-2024 Neutrophils/100 WBC (Bld) 74.1 % High 47-70 [facility] Nucleated red blood cell per centageOrdered By: Georgia Lino on 08-25-2024 Nucleated RBC/100 WBC (Bld) [Ratio] 0 % 0-5 [facility] Platelet countOrdered By: Eric jono [place] on 08-25-2024 Platelets (Bld) [#/Vol] 179 10*3/uL 150-450 [facility] RBC Auto (Bld) [#/Vol]Ordere d By: Georgia Lino on 08-25-2024 RBC (Bld) [#/Vol] 3.02 10*6/uL Low 4.2-5.[address] [facility] White blood cell (WBC) count Ordered By: Georgia Lino on 08-25-2024 WBC (Bld) [#/Vol] 14.9 10*3/uL High 4.4-11.[address] [facility] BRho(D) IGon 08-24-2024 Rho(D) IG Normal [facility] Comment on above: Result Comment: RH10 7105 Rho(D) IG PRSMD TRFSD 08/24/24 1024 Performed By: #### B RHNM, PAYAM(D) IG ####[facility] [address] [place], [address] Operative Reporton 5 Operative Report [facility] Medical Records Department [address] [place] [address] Operative Report 08/24/24 0319 MR#: [id number] Acct: [id number] Name: STEWART ZUNIGA Rep #: [id number] : 2000 24 From: Georgia Lino MD PCP: Care Physician,No Primary Status:ADM IN Location: [id number] Assessment Plan (1) S/P : (2) Rh [...] (5 minute): 9 Delayed Cord Clamping: Yes 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 Georgia Lino MD; No Primary Care Physician Signed Normal [facility] Rh Negative Mom Workupon ABO and Rh group Nom (Bld) Blood group O Rh(D) negative Normal [facility] Comment on above: Order Comment: Comme nts: Age > 13 WeeksNorman,[id number] Performed By: #### B RHNM, BRho(D) IG ####[facility] [address] [place], [address] ABO and Rh group Nom (Bld) Blood group O Rh(D) positive Normal [facility] Comment on above: Order Comment: Comme nts: Age > 13 WeeksNorman,[id number] Performed By: #### B RHNM, BRho(D) IG ####[facility] [address] [place], [address] DIRECT ANTIGLOB Negative Normal NEGATIVE [facility] Comment on above: Order Comment: Comme nts: Age > 13 WeeksNorman,[id number] Performed By: #### B RHNM, BRho(D) IG ####[facility] [address] [place], [address] SCREEN Negative Normal NEGATIVE [facility] Comment on above: Order Comment: Comme nts: Age > 13 WeeksNorman,[id number] Performed By: #### B RHNM, BRho(D) IG ####[facility] [address] [place], [address] MOM'S ABS Positive Normal [facility] Comment on above: Order Comment: Comme nts: Age > 13 WeeksNorman,[id number] Performed By: #### B RHNM, BRho(D) IG ####[facility] [address] [place], [address] [id number] 08-22-2024 ANTIBODY ID D Normal [facility] Comment on above: Order Comment: Labor Performed By: #### L 499.0042 #### [facility] [address] [place], [address] CBC W/Diff, Automatedon 06-2 0-2024 Absolute Lymph 2.28 X10 3/uL Normal 0.83-4.51 [facility] Comment on above: Performed By: #### L 499.0042 #### [facility] [address] [place], [address] Absolute Neut 10.4 X10 3/uL High 2.0-7.7 [facility] Comment on above: Performed By: #### L 499.0042 #### [facility] [address] [place], [address] Basophils/100 WBC (Bld) 0.4 % Normal 0-1 [facility] Comment on above: Performed By: #### L 499.0042 #### [facility] [address] [place], [address] Eosinophils/100 WBC (Bld) 1.9 % Normal 0-5 [facility] Comment on above: Performed By: #### L 499.0042 #### [facility] [address] [place], [address] Erythrocyte distribution width (RBC) [Ratio] 13.2 % Normal 11.6-14.6 [facility] Comment on above: Performed By: #### L 499.0042 #### [facility] [address] [place], [address] Hematocrit (Bld) [Volume fraction] 36.0 % Low 37-47 [facility] Comment on above: Performed By: #### L 499.0042 #### [facility] [address] [place], [address] Hemoglobin (Bld) [Mass/Vol] 12.5 g/dL Normal 12.0-15.0 [facility] Comment on above: Performed By: #### L 499.0042 #### [facility] [address] [place], [address] IG% 1.000 High 0.0-0.9 [facility] Comment on above: Result Comment: IG% - Immature Granulocytes (promyelocytes, myelocytes and metamyelocytes) > 1% indicates that a LEFT SHIFT is Present. Performed By: #### L 499.0042 #### [facility] [address] [place], [address] Lymphocytes/100 WBC (Bld) 16.3 % Low 19-41 [facility] Comment on above: Performed By: #### L 499.0042 #### [facility] [address] [place], [address] MCH (RBC) [Entitic mass] 31.9 pg Normal 27.0-32.0 [facility] Comment on above: Performed By: #### L 499.0042 #### [facility] [address] [place], [address] MCHC (RBC) [Mass/Vol] 34.7 g/dL Normal 32-36 [facility] Comment on above: Performed By: #### L 499.0042 #### [facility] [address] [place], [address] MCV (RBC) [Entitic vol] 91.8 fL Normal 81-99 [facility] Comment on above: Performed By: #### L 499.0042 #### [facility] [address] [place], [address] Monocytes/100 WBC (Bld) 6.2 % Normal 0-10 [facility] Comment on above: Performed By: #### L 499.0042 #### [facility] [address] [place], [address] Neutrophils/100 WBC (Bld) 74.2 % High 47-70 [facility] Comment on above: Performed By: #### L 499.0042 #### [facility] [address] [place], [address] Nucleated RBC (Bld) [#/Vol] 0 10*3/uL Normal 0-5 [facility] Comment on above: Performed By: #### L 499.0042 #### [facility] [address] [place], [address] Platelet mean volume (Bld) [Entitic vol] 10.5 fL Normal 6.2-12.0 [facility] Comment on above: Performed By: #### L 499.0042 #### [facility] [address] [place], [address] Platelets (Bld) [#/Vol] 209 10*3/uL Normal 150-450 [facility] Comment on above: Performed By: #### L 499.0042 #### [facility] [address] [place], [address] RBC (Bld) [#/Vol] 3.92 10*6/uL Low 4.2-5.[address] [facility] Comment on above: Performed By: #### L 499.0042 #### [facility] [address] [place], [address] RDW SD 44.1 fl High 35.1-43.9 [facility] Comment on above: Performed By: #### L 499.0042 #### [facility] [address] [place], [address] WBC (Bld) [#/Vol] 14.0 10*3/uL High 4.4-11.[address] [facility] Comment on above: Performed By: #### L 499.0042 #### [facility] [address] [place], [address] H AND P Exam - OB/GYNon 06-2 0 H&P Exam - [employer] SAL[employer] MANAGER [facility] Medical Records Department [address] [place] [address] H P Exam - [employer] 08/22/242057 MR#: [id number] Acct: [id number] Name: STEWART ZUNIGA Rep #: [id number] : 2000 24 From: Georgia Lino MD PCP: Care Physician,No Primary Status:ADM IN Location: [place] [id number] HPI - General General Date of Admission: [...] MD; No Primary Care Physician Signed Normal [facility] Syphilis Antibodieson 2024 Syphilis Abs Non-Reactive Normal Nonreactive [facility] Comment on above: Performed By: #### L 499.0042 #### [facility] [address] [place], [place], [address] Type AND Screenon 08-22-2024 Ab SCREEN GEL Positive Normal [facility] Comment on above: Order Comment: Labor Performed By: #### L 499.0042 #### [facility] [address] [place], [place], [address] URINE OB DIP B/Oon 5 Glucose Ql (U) Negative Neg mg/dL [facility] Interpretation and review of laboratory results Normal [facility] Protein.monoclonal (U) [Mass/Vol] Negative Neg mg/dL [facility] CNPNon 08-12-2024 CNPN Telephone (OBGYWM) STEWART ZUNIGA ([id number]) 4 F Date Time Provider Department 08/12/24 AMBREEN ROMERO During your visit today, we recorded the following information about you: Georgia Wren, RN 08/12/2024 12:03 PM Signed 37w4d Patient [...] or would you rather her go to [facility]? Thank you. PEACE Beatty Karmon, MD 08/12/2024 12:10 PM Signed The pelvic pressure with standing is a common occurrence. I would recommend rest and hydration. If having regular contractions, red bleeding beyond 24 hours or LOF should go to [facility]. MD Siena Pires Jennifer, RN [...] 1 tablet by mouth once daily. - mc818-uylv-ubhjh acid ( 19) 29 mg iron- 1 [...] third trimester (*07/17/2024 33 weeks gestation of ([facility]) [Z3A.33] 07/17/2024 Encounter Status:Closed by GEORGIA WREN on 08/12/24 Normal [facility] ROUTINE, GROUP B ST REPTOCOCCUS BY PCRon 08-11-2024 ROUTINE, GROUP B STREPTOCOCCUS BY PCR Not detected Normal [facility] Comment on above: Performed By: #### G BPCR ####[facility] [id number] [address] STATES OF [facility] Jose Luis 08-09-2024 DIANE Negative Normal [facility] Comment on above: Result Comment: Storm Hair Reference: Negative No cells seen. TESTING PERFORMED AT [facility]. ORIGINAL REPORT ON FILE IN LAB CONTAINS ADDITIONAL TEST SITE INFORMATION. AMENDED REPORT 08/09/24 0738 DELVIN GEIGER previously reported as: Ramakrishna Geiger Study Reference: Negative No cells seen. TESTING PERFORMED AT [facility]. ORIGINAL REPORT ON FILE IN LAB CONTAINS ADDITIONAL TEST SITE INFORMATION. Performed By: #### L 400.0001 #### [facility] [address] [place], [address] 12 Lead EKGon 08-07-2024 12 Lead EKG [facility] Cardiovascular Services [address] [place] [address] 12 Lead EKG 08/07/24 2205 MR#: [id number] Acct: [id number] Name: STEWART ZUNIGA Rep #: [id number] : 2000 24 From: Cailin Joy MD Attending Dr: Dr. Georgia Lino MD Status: D EP CLI Ordering Dr: Georgia Lino MD Date: 08/07/24 Location: [facility] Sex: F C Admitted: Test [...] Confirmed by RUFINO SANTIAGO, JOSE M ([id number]), online editor SHANTANU HARRIS ([id number]) on 08/11/2024 6:56:33 AM Referred By: Georgia Lino Confirmed By: JOSE M JOY MD 08/11/24 0656 Date Cailin Joy MD CC: Dr. Georgia Lino MD; No Primary Care Physician Signed Normal [facility] [id number] 08-07-2024 ABO and Rh group Nom (Bld) Blood group O Rh(D) negative Normal [facility] Comment on above: Performed By: #### L 499.0042 #### [facility] [address] [place], [place], [address] BRho(D) IGon 08-07-2024 Rho(D) IG Normal [facility] Comment on above: Result Comment: RH10 7102 Rho(D) IG PRSMD TRFSD 08/07/241930 Performed By: #### L 499.0042 #### [facility] [address] [place], [address] CNPNon 08-07-2024 [facility] Telephone (OBGYWM) STEWART ZUNIGA ([id number]) 4 F Date Time Provider Department 08/07/24 [...] of fluid. Patient instructed to go to [facility] for evaluation. Patient voiced understanding. [facility] notified. Mathew Gaviria RN Allergies As of [...] 1 tablet by mouth once daily. - ig668-lxni-jcotw acid ( 19) 29 mg iron- 1 [...] Status:Closed by MATHEW GAVIRIA on 08/07/24 Normal [facility] OB Triage Physician Noteon 0 6- OB Triage Physician Note [facility] Medical Records Department [address] [place] [address] OB Triage Physician Note 08/07/241914 MR#: [id number] Acct: [id number] Name: STEWART ZUNIGA Rep #: [id number] : 2000 24 From: Georgia Lino MD PCP: Care Physician,No Primary Status:DEP CLI Y Location: [facility] HPI - General General Date [...] MD; No Primary Care Physician Signed Normal [facility] Type AND Screenon 08-07-2024 A1 CELL Not performed Normal [facility] Comment on above: Order Comment: Has p t arrived? [id number] fell on abdomen Result Comment: Canc elled via OM: Order Changed Performed By: #### B TS ####[facility] [address] [place], [address] Ab SCREEN GEL Not performed Normal [facility] Comment on above: Order Comment: Has p t arrived? [id number] fell on abdomen Result Comment: Canc elled via OM: Order Changed Performed By: #### B TS ####[facility] [address] [place], [address] ABO and Rh group Nom (Bld) Test Not Performed Normal [facility] Comment on above: Order Comment: Has p t arrived? [id number] fell on abdomen Result Comment: Canc elled via OM: Order Changed Performed By: #### B TS ####[facility] [address] [place], [address] ANTI A Not performed Normal [facility] Comment on above: Order Comment: Has p t arrived? [id number] fell on abdomen Result Comment: Canc elled via OM: Order Changed Performed By: #### B TS ####[facility] [address] [place], [address] ANTI B Not performed Normal [facility] Comment on above: Order Comment: Has p t arrived? [id number] fell on abdomen Result Comment: Canc elled via OM: Order Changed Performed By: #### B TS ####[facility] [address] [place], [address] ANTI D Not performed Normal [facility] Comment on above: Order Comment: Has p t arrived? [id number] fell on abdomen Result Comment: Canc elled via OM: Order Changed Performed By: #### B TS ####[facility] [address] [place], [address] B CELLS Not performed Normal [facility] Comment on above: Order Comment: Has p t arrived? [id number] fell on abdomen Result Comment: Canc elled via OM: Order Changed Performed By: #### B TS ####[facility] [address] [place], [address] [facility] 07-17-2024 [facility] Telephone (OBGYWM) STEWART ZUNIGA ([id number]) 4 F Date Time Provider Department 07/17/24 [...] leaking fluid since Sunday. States she told [facility] nurse, but swab was not done. Spoke with DM regarding plan of care. Offered patient a visit here, go to [facility] (risk that baby could be transported if she delivers) or go to [place]. For peace of mind, patient said, she is going to [place]. JEZ Wren, Juju Jacobo RN 07/17/2024 2:45 PM Signed Pt calls back stating she went to [facility]. Was told she was 1cm dilated; [...] doing and to call the office/return to [facility] if she has LOF/vaginal bleeding, decreased movement, increase in frequency of contractions-increas ed pain despite measures above, or abdominal pain. Pt voiced understanding. Informed her message would be forwarded to RR to inform her of this and see if any further recommendations are needed. Juju You, Genesis Perera MD 07/17/2024 4:25 PM Signed Called [...] 1 tablet by mouth once daily. - sn781-xwmk-ugkel acid ( 19) 29 mg iron- 1 [...] Status:Closed by GEORGIA WREN on 07/17/24 Normal [facility] ED Triage Noteon 07-17-2024 ED Triage Note HNO ID: [id number] Author: DAVID MCKAY APRN.CNP Service: Emergency Medicine Author Type: [...] placed in this encounter. 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 Normal [facility] OB Triage Physician Noteon 0 07-17-2024 OB Triage Physician Note [facility] Medical Records Department [address] [place] [address] OB Triage Physician Note 07/17/24 0857 MR#: [id number] Acct: [id number] Name: STEWART ZUNIGA Rep #: [id number] : 2000 24 From: Genesis Martinez MD PCP: Care Physician,No Primary Status:DEP CLI Y Location: [facility] HPI - General General Date [...] Martinez MD; No Primary Care Physician Signed [facility] Urine Cultureon 07-16-2024 [facility] Mixed Gram Positive Organisms Warren Count 11,000-25,000 MIXC Mixed contaminants. Submit a new specimen if indicated. Normal [facility] Comment on above: Performed By: #### M 100.2200 ####[facility] [address] [place], [place], [address] [facility] 07-15-2024 [facility] Telephone (CARDMN) STEWART ZUNIGA ([id number]) 4 F Date Time Provider Department 07/15/24 JAY BYRD CARDIN During your visit today, we recorded the following information about you: Maribel Joaquin 07/15/2024 11:23 AM Signed July 15, 2024 Patient Contact Number: [phone] (home) [phone] (cell) Patient last seen within the last year: Yes Reason for Call: Dizziness and Other Issue: Pt is 33.5 weeks . States she experience having contractions and went to local ED ([facility]) yesterday and today and was sent [...] 1 tablet by mouth once daily. - gs944-fiju-iqntg acid ( 19) 29 mg iron- 1 [...] Status:Closed by NACHO KWAN on 07/15/24 Normal [facility] Amorphous sediment detection in urine sediment by light microscopyOrdered By: Amilcar Méndez on 07-14-2024 Amorphous sediment LM Ql (Urine sed) 2+ [facility] BACTERIAL VAGINOSIS NAATon 0 07-14-2024 Lactobacillus crispatus+gasseri+jense patrick + Gardnerella vaginalis + Atopobium vaginae rRNA RICHARD+probe Ql (Vag fld) Not detected Normal Not detected [facility] Comment on above: Order Comment: Speci men Type: SWABOrdering Facility: [facility] Address: [address] [place] [address] Performed By: #### B VAMP, CVTV ####[facility] [id number] [place] [address] [place] Bilirubin Test strip Ql (U)O rdered By: Amilcar Méndez on 07-14-2024 Bilirubin Ql (U) Negative Negative [facility] IRENE/TRICHOMONAS NAATon 0 07-14-2024 C. glabrata RNA RICHARD+probe Ql (Vag fld) Not detected Normal Not detected [facility] Comment on above: Order Comment: Speci men Type: SWABOrdering Facility: [facility] Address: [address] [place] [address] Performed By: #### B VAMP, CVTV ####[facility] [id number] [address] [place] Irene sp DNA RICHARD+probe Ql (Vag fld) Not detected Normal Not detected [facility] Comment on above: Order Comment: Speci men Type: SWABOrdering Facility: [facility] Address: [address] [place] [address] Result Comment: The Irene species group target includes C. albicans, C. tropicalis, C. parapsilosis, and C. dubliniensis. Performed By: #### B VAMP, CVTV ####[facility] [id number] [place] [address] [place] T. vaginalis DNA RICHARD+probe Ql (Unsp spec) Not detected Normal Not detected [facility] Comment on above: Order Comment: Speci men Type: SWABOrdering Facility: [facility] Address: [address] [place] [address] Performed By: #### B VAMP, CVTV ####[facility] [id number] [place] [address] [place] Ketones Test strip Ql (U)Ord ered By: Amilcar Méndez on 07-14-2024 Ketones Ql (U) Negative Negative [facility] Microscopic analysis of urin e for red blood cells (RBC)Ordered By: Amilcar Méndez on 07-14-2024 Microscopic analysis of urine for red blood cells (RBC) 0 SEEN /hpf 0-5 [facility] Mucus LM Ql (Urine sed)Order ed By: Amilcar Méndez on 07-14-2024 Mucus Ql (Urine sed) 0 SEEN /hpf [facility] Nitrite Test strip Ql (U)Ord ered By: Amilcar Méndez on 07-14-2024 Nitrite Ql (U) Negative Negative [facility] OB Triage Physician Noteon 0 07-14-2024 OB Triage Physician Note [facility] Medical Records Department [address] [place] [address] OB Triage Physician Note 07/14/24 1630 MR#: [id number] Acct: [id number] Name: STEWART ZUNIGA Rep #: [id number] : 2000 24 From: Milly Singh DO PCP: Care Physician,No Primary Status:REG CLI Y Location: [address] HPI - General General Date of Admission: 07/14/24 Date of Service: 07/14/24 Chief Complaint: ctx's HPI Narrative STEWART ZUNIGA, is a 24 F who presents from the office with ctx's. Improved after PO hydration. Spotting yesterday and no bleeding since. No LOF. No urinary symptoms of changes in bowel movements. [facility] Medical History Physical exam, pre-employment Palpitations Chest [...] DO; No Primary Care Physician Signed Normal [facility] Protein Test strip Ql (U)Ord ered By: Amilcar Méndez on 07-14-2024 Protein Ql (U) 30 mg/dl High Negative [facility] Squamous epithelial cells de tection in urine sediment by light microscopyOrdered By: Amilcar Méndez on 07-14-2024 Epithelial cells.squamous LM Ql (Urine sed) 0-5 SEEN /hpf 5-10 [facility] Urinalysis, Completeon 07-14 WBC 0-5 SEEN Normal 0-5 [facility] Comment on above: Order Comment: CLEAN CATCH Performed By: #### L 400.0001 #### [facility] [address] [place], [place], [address] AMORPHOUS 2+ Normal [facility] Comment on above: Order Comment: CLEAN CATCH Performed By: #### L 400.0001 #### [facility] [address] [place], [place], [address] BACTERIA 2+ /hpf Normal None Seen [facility] Comment on above: Order Comment: CLEAN CATCH Performed By: #### L 400.0001 #### [facility] [address] [place], [address] EPI,SQUAMOUS 0-5 SEEN Normal 5-10 [facility] Comment on above: Order Comment: CLEAN CATCH Performed By: #### L 400.0001 #### [facility] [address] [place], [address] Mucus Ql (Urine sed) 0 SEEN Normal [facility] Comment on above: Order Comment: CLEAN CATCH Performed By: #### L 400.0001 #### [facility] [address] [place], [address] RBC 0 SEEN Normal 0-5 [facility] Comment on above: Order Comment: CLEAN CATCH Performed By: #### L 400.0001 #### [facility] [address] [place], [place], [address] Urine clarityOrdered By: Madan Méndez on 07-14-2024 Clarity (U) Sl. Cloudy Clear [facility] Urine color determinationOrd ered By: Amilcar Méndez on 07-14-2024 Color (U) Yellow Yellow [facility] Urine cultureOrdered By: Mireille Singh on 07-14-2024 Bacteria identified Cx Nom (U) Positive Abnormal [facility] Urine glucose detectionOrder ed By: Amilcar Méndez on 07-14-2024 Glucose Ql (U) Normal mg/dl Normal [facility] Urine leukocyte esterase det ection by dipstickOrdered By: Amilcar Méndez on 07-14-2024 Leukocyte esterase Test strip Ql (U) 25 /ul High Negative [facility] Urine pHOrdered By: Amilcar Méndez on 07-14-2024 pH (U) 7.0 [pH] 5.0 - 8.0 [facility] Urine sediment bacteria coun t by microscopy (number/high power field)Ordered By: Amilcar Méndez on 07-14-2024 Bacteria LM.HPF (Urine sed) [#/Area] 2 /[HPF] None Seen [facility] Urine specific gravity measu rementOrdered By: Amilcar Méndez on 07-14-2024 Specific gravity (U) [Rel density] 1.015 1.002-1.030 [facility] Urine urobilinogen measureme ntOrdered By: Amilcar Méndez on 07-14-2024 Urobilinogen Ql (U) 4 mg/dl High Normal [facility] White blood cell countOrdere d By: Amilcar Méndez on 07-14-2024 White blood cell count 0-5 SEEN /hpf 0-5 [facility] CNPNon 07-10-2024 CNPN Telephone (OBGYWM) STEWART ZUNIGA ([id number]) 4 F Date Time Provider Department 07/10/24 AMILCAR MÉNDEZ OBSHERRILL During your visit today, we recorded the following information about you: Sharon Yusuf RN 07/10/2024 8:50 AM Signed Breast pump order received from [facility]. To to sign. PEACE Hou Trisha, RN [...] 1 tablet by mouth once daily. - eh707-tbcb-omgsr acid ( 19) 29 mg iron- 1 [...] Status:Closed by SHARON YUSUF on 07/10/24 Normal [facility] CNPSoledad 07-08-2024 CNPN Telephone (FV3L+D) STEWART ZUNIGA ([id number]) 4 F Date Time Provider Department 07/08/24 MPOWER FV OB LANDD FV3L+D During your visit today, we recorded the following information about you: Allergies As of Date: 07/08/2024 Noted Allergy Reaction ADHESIVE 10/23/2023 4 - Hives LACTOSE 10/23/2023 8 - GI Upset Date Reviewed: 07/07/2024 Reviewed by: Georgia Lino MD - Fully Assessed Reason for Visit: Care Coordination [2267] Cmt: M-Power Consult Called pt for scheduled consult, no answer Prescriptions as of 07/08/2024 - pantoprazole DR (PROTONIX) 20 mg tablet Take 1 tablet by mouth once daily. - us410-hzfm-vlqvp acid ( 19) 29 mg iron- 1 [...] Encounter Status:Closed by BRENDA HENRIQUEZ on 07/08/24 [facility] UA DIP, URINE (POC)on 2024 BILIRUBIN UA (POCT) Negative Negative [facility] CLARITY UA (POCT) Clear [facility] COLOR UA (POCT) Yellow [facility] GLUCOSE UA (POCT) Negative Negative mg/dL [facility] Hemoglobin Ql (U) Negative Negative [facility] Interpretation and review of laboratory results Abnormal [facility] KETONE UA (POCT) Negative Negative mg/dL [facility] LEUKOCYTES UA (POCT) Trace Abnormal Negative [facility] NITRITE UA (POCT) Negative Negative [facility] PH UA (POCT) 6.5 4.5 - 8.0 [facility] Protein Ql (U) Negative Negative mg/dL [facility] SPECIFIC GRAVITY UA (POCT) 1.015 1.005 - 1.030 [facility] UROBILINOGEN UA (POCT) 4 Abnormal Normal E.U./d L [facility] Location:[facility], [address] , [place], [address] [facility] POINT OF CARE [facility] CNPNon 06-17-2024 CNPN Telephone (OBGYWM) STEWART ZUNIGA ([id number]) 4 F Date Time Provider Department 06/17/24 GEORGIA LINOWShashi During your visit today, we recorded the [...] of range. Please advise and will send Xceedium message to Pt with response. PEACE Osborn [...] Fully Assessed Reason for Visit: Patient Question [9367] Prescriptions as of 06/17/2024 - pantoprazole DR (PROTONIX) 20 mg tablet Take 1 tablet by mouth once daily. - ze018-vzyp-sbeck acid ( 19) 29 mg iron- 1 [...] Status:Closed by JUJU YOU on 06/17/24 Normal [facility] OB Triage Physician Noteon 0 06-16-2024 OB Triage Physician Note [facility] Medical Records Department [address] [place] [address] OB Triage Physician Note 06/16/24 0607 MR#: [id number] Acct: [id number] Name: STEWART ZUNIGAHELLE Rep #: [id number] : 2000 24 From: Georgia Lino MD PCP: Care Physician,No Primary Status:DEP CLI Y Location: [facility] HPI - General General Date of Admission: [...] MD; No Primary Care Physician Signed Normal [facility] 12 Lead EKGon 06-15-2024 12 Lead EKG [facility] Cardiovascular Services [address] [place] [address] 12 Lead EKG 06/15/24 2125 MR#: [id number] Acct: [id number] Name: STEWART ZUNIGA Rep #: [id number] : 2000 24 From: Rubio Paulino MD Attending Dr: Dr. Georgia Lino MD Status: D EP CLI Ordering Dr: Frankie Mcdanile DO Date: 5 Location: [facility] Sex: F C Admitted: Test Reason : Blood Pressure : */* mmHG Vent. Rate : 85 BPM Atrial Rate : 85 BPM P-R Int : 138 ms QRS Dur : 70 ms QT Int : 344 ms P-R-T Axes : 41 57 38 degrees QTcB Int : 409 ms Normal sinus rhythm Normal ECG Confirmed by Rubio Paulino ([id number]), online editor SHANTANU HARRIS ([id number]) on 06/16/2024 1:15:49 PM Referred By: Georgia Lino Confirmed By: Rubio Paulino 06/16/24 1315 Date Rubio Paulino MD CC: Dr. Frankie Mcdaniel DO; Dr. Georgia Lino MD; No Primary Care Physician Signed Normal [facility] Absolute lymphocyte countOrd ered By: Frankie Mcdaniel on 06-15-2024 Lymphocytes Auto (Unsp spec) [#/Vol] 3.28 10*3/uL 0.83-4.51 [facility] Absolute neutrophil countOrd ered By: Frankie Mcdaniel on 06-15-2024 Neutrophils (Bld) [#/Vol] 9.9 10*3/uL High 2.0-7.7 [facility] Anion gap in Serum or Plasma Ordered By: Frankiestarla Mcdaniel on 06-15-2024 Anion gap [Moles/Vol] 12 mmol/L 5-15 [facility] Automated lymphocyte count a s percentage of total leukocytesOrdered By: Frankie Mcdaniel on 06-15-2024 Lymphocytes/100 WBC Auto (Unsp spec) 21.7 % 19-41 [facility] BUN/creatinine ratioOrdered By: Frankie Mcdaniel on 06-15-2024 Urea nitrogen/Creatinine [Mass ratio] 5.0 mg/mg Low 10-20 [facility] Basophil percentageOrdered B y: Frankie Mcdaniel on 06-15-2024 Basophils/100 WBC (Bld) 0.3 % 0-1 [facility] Bilirubin Test strip Ql (U)O rdered By: Frankie Mcdaniel on 06-15-2024 Bilirubin Ql (U) Negative Negative [facility] Bilirubin, totalOrdered By: Frankie Mcdaniel on 06-15-2024 Bilirubin [Mass/Vol] 0.20 mg/dL 0.00-1.30 [facility] CBC W/Diff, Automatedon 06-03 Absolute Lymph 3.28 X10 3/uL Normal 0.83-4.51 [facility] Comment on above: Performed By: #### L 499.0042 #### [facility] [address] [place], [place] [address], [address] Absolute Neut 9.9 X10 3/uL High 2.0-7.7 [facility] Comment on above: Performed By: #### L 499.0042 #### [facility] [address] [place], [address] Basophils/100 WBC (Bld) 0.3 % Normal 0-1 [facility] Comment on above: Performed By: #### L [id number] #### [facility] [address] [place], [address] Eosinophils/100 WBC (Bld) 4.9 % Normal 0-5 [facility] Comment on above: Performed By: #### L [id number] #### [facility] [address] [place], [address] Erythrocyte distribution width (RBC) [Ratio] 13.6 % Normal 11.6-14.6 [facility] Comment on above: Performed By: #### L 499.0042 #### [facility] [address] [place], [address] Hematocrit (Bld) [Volume fraction] 38.5 % Normal 37-47 [facility] Comment on above: Performed By: #### L 499.0042 #### [facility] [address] [place], [address] Hemoglobin (Bld) [Mass/Vol] 12.9 g/dL Normal 12.0-15.0 [facility] Comment on above: Performed By: #### L 499.0042 #### [facility] [address] [place], [address] IG% 1.300 High 0.0-0.9 [facility] Comment on above: Result Comment: IG% - Immature Granulocytes (promyelocytes, myelocytes and metamyelocytes) > 1% indicates that a LEFT SHIFT is Present. Performed By: #### L 499.0042 #### [facility] [address] [place], [address] Lymphocytes/100 WBC (Bld) 21.7 % Normal 19-41 [facility] Comment on above: Performed By: #### L [id number] #### [facility] [address] [place], [address] MCH (RBC) [Entitic mass] 30.9 pg Normal 27.0-32.0 [facility] Comment on above: Performed By: #### L [id number] #### [facility] [address] [place], [address] MCHC (RBC) [Mass/Vol] 33.5 g/dL Normal 32-36 [facility] Comment on above: Performed By: #### L [id number] #### [facility] [address] [place], [address] MCV (RBC) [Entitic vol] 92.3 fL Normal 81-99 [facility] Comment on above: Performed By: #### L [id number] #### [facility] [address] [place], [address] Monocytes/100 WBC (Bld) 6.4 % Normal 0-10 [facility] Comment on above: Performed By: #### L 499.0042 #### [facility] [address] [place], [address] Neutrophils/100 WBC (Bld) 65.4 % Normal 47-70 [facility] Comment on above: Performed By: #### L [id number] #### [facility] [address] [place], [address] Nucleated RBC (Bld) [#/Vol] 0 10*3/uL Normal 0-5 [facility] Comment on above: Performed By: #### L 499.0042 #### [facility] [address] [place], [address] Platelet mean volume (Bld) [Entitic vol] 10.2 fL Normal 6.2-12.0 [facility] Comment on above: Performed By: #### L 499.0042 #### [facility] [address] [place], [address] Platelets (Bld) [#/Vol] 264 10*3/uL Normal 150-450 [facility] Comment on above: Performed By: #### L 499.0042 #### [facility] [address] [place], [address] RBC (Bld) [#/Vol] 4.17 10*6/uL Low 4.2-5.[address] [facility] Comment on above: Performed By: #### L 499.0042 #### [facility] [address] [place], [address] RDW SD 45.6 fl High 35.1-43.9 [facility] Comment on above: Performed By: #### L 499.0042 #### [facility] [address] [place], [address] WBC (Bld) [#/Vol] 15.1 10*3/uL High 4.4-11.[address] [facility] Comment on above: Performed By: #### L 499.0042 #### [facility] [address] [place], [address] CTA Chest W/WO Contraston CTA Chest W/WO Contrast [facility] [address] [place] [address] CTA Chest W/WO Contrast MR#: [id number] Acct: [id number] Name: STEWART ZUNIGA Rep #: [id number] : 2000 F 24 From: Joshua Dawson PCP: Care Physician,No Primary Status: [facility] ER Study: CTA Chest W/WO Contrast Date of Exam: 06/15/24 Exam# [id number] Ordering Dr: Frankie Mcdaniel DO PROCEDURE: CTA [...] 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 Glove Operator: Signed Normal [facility] Carbon dioxide, total [Moles /volume] in Central venous bloodOrdered By: Frankie Mcdaniel on 06-15-2024 CO2 [Moles/Vol] 20.9 mmol/L Low 21.0-32.0 [facility] Chloride assayOrdered By: Joseph Mcdaniel on 06-15-2024 Chloride [Moles/Vol] 104 mmol/L 98-108 [facility] Comprehensive Metabolic Prof ilon 06-15-2024 Albumin [Mass/Vol] 3.8 g/dL Normal 3.5-5.0 [facility] Comment on above: Performed By: #### L 499.0042 #### [facility] [address] [place], [address] Albumin/Globulin [Mass ratio] 1.5 {ratio} Normal 0.9-2.4 [facility] Comment on above: Performed By: #### L 499.0042 #### [facility] [address] [place], [address] ALK PHOS 84 U/L Normal 35-104 [facility] Comment on above: Performed By: #### L 499.0042 #### [facility] [address] [place], [address] ALT [Catalytic activity/Vol] 8 U/L Normal <=34 [facility] Comment on above: Performed By: #### L 499.0042 #### [facility] [address] [place], [address] AST [Catalytic activity/Vol] 14 U/L Normal <=31 [facility] Comment on above: Performed By: #### L 499.0042 #### [facility] [address] [place], [address] Bilirubin [Mass/Vol] 0.20 mg/dL Normal 0.00-1.30 [facility] Comment on above: Performed By: #### L 499.0042 #### [facility] [address] [place], [address] BUN/CRE 5.0 RATIO Low 10-20 [facility] Comment on above: Performed By: #### L 499.0042 #### [facility] [address] [place], [address] Calcium [Mass/Vol] 9.0 mg/dL Normal 7.6-11.0 [facility] Comment on above: Performed By: #### L 499.0042 #### [facility] [address] [place], [address] Chloride [Moles/Vol] 104 mmol/L Normal 98-108 [facility] Comment on above: Performed By: #### L [id number] #### [facility] [address] [place], [address] CO2 [Moles/Vol] 20.9 mmol/L Low 21.0-32.0 [facility] Comment on above: Performed By: #### L [id number] #### [facility] [address] [place], [address] Creatinine [Mass/Vol] 0.88 mg/dL Normal 0.70-1.20 [facility] Comment on above: Performed By: #### L 499.0042 #### [facility] [address] [place], [address] ECRCL 91.07 ml/min Normal 50-250 [facility] Comment on above: Performed By: #### L 499.0042 #### [facility] [address] [place], [address] GAP 12 Normal 5-15 [facility] Comment on above: Performed By: #### L 499.0042 #### [facility] [address] [place], [address] GFR/1.73 sq M.predicted among non-blacks MDRD (S/P/Bld) [Vol rate/Area] 95 mL/min/{1.73_m2} Normal >60 [facility] Comment on above: Result Comment: mL/m in/1.73m2 CKD-EPI Creatinine Equation (2020) Performed By: #### L 499.0042 #### [facility] [address] [place], [address] Globulin (S) [Mass/Vol] 2.6 g/dL Normal 2.2-4.2 [facility] Comment on above: Performed By: #### L 499.0042 #### [facility] [address] [place], [address] Glucose [Mass/Vol] 86 mg/dL Normal 70-99 [facility] Comment on above: Performed By: #### L 499.0042 #### [facility] [address] [place], [address] Potassium [Moles/Vol] 3.2 mmol/L Low 3.3-5.1 [facility] Comment on above: Performed By: #### L 499.0042 #### [facility] [address] [place], [address] Sodium [Moles/Vol] 137 mmol/L Normal 133-145 [facility] Comment on above: Performed By: #### L 499.0042 #### [facility] [address] [place], [address] T PROT 6.4 g/dL Normal 5.9-8.4 [facility] Comment on above: Performed By: #### L 499.0042 #### [facility] [address] [place], [address] Urea nitrogen [Mass/Vol] 4 mg/dL Normal 4-19 [facility] Comment on above: Performed By: #### L 499.0042 #### [facility] [address] [place], [address] Emergency Department Summary on 06-15-2024 Emergency Department Summary [facility] Medical Records Department [address] [place] [address] Emergency Department Summary 06/15/24 MR#: [id number] Acct: [id number] Name: STEWART ZUNIGA Rep #: [id number] : 2000 24 From: Frankie Mcdaniel DO PCP: Care Physician,No Primary Status:DEP CLI Location: [facility] HPI History of Present Illness Chief Complaint: Shortness of Breath Narrative Narrative: Chief complaint and HPI: 24-year-old female who is G1, P0 and 29 weeks who follows with [facility] [employer] presents for evaluation of shortness of breath and abdominal cramping. Patient states she received RhoGAM shot on Sunday given that she is O-. She states since then she has had increased shortness of breath and intermittent abdominal/pelvic cramping. She denies any vaginal bleeding or discharge. Shortness of breath is worse with exertion and walking. She states that she attempted to call the [employer]NA[employer] but did not get a return call [...] intact Psych: Cooperative, appropriate mood and affect [facility] Medical History Physical exam, pre-employment [...] Blood Pressur (more content not included)... Normal [facility] Eosinophil percentageOrdered By: Frankie Mcdaniel on 06-15-2024 Eosinophils/100 WBC (Bld) 4.9 % 0-5 [facility] Epithelial cells.squamous LM Ql (Urine sed)Ordered By: Frankie Mcdaniel on 06-15-2024 Epithelial cells.squamous LM.HPF (Urine sed) [#/Area] 0 /[HPF] 5-10 [facility] Erythrocyte distribution wid th (RBC) [Ratio]Ordered By: Frankie Mcdaniel on 06-15-2024 Erythrocyte distribution width (RBC) [Entitic vol] 45.6 fL High 35.1-43.9 [facility] Erythrocyte distribution wid th ratioOrdered By: Kelford Violeta on 06-15-2024 Erythrocyte distribution width (RBC) [Ratio] 13.6 % 11.6-14.6 [facility] Erythrocyte distribution wid th standard deviationOrdered By: Kelford Abram Tanner on 06-15-2024 Erythrocyte distribution width (RBC) [Ratio] 45.6 fl High 35.1-43.9 [facility] Estimation of creatinine elvis aranceOrdered By: Frankie Mcdaniel on 06-15-2024 Estimated Creatinine Clearance Calc 91.07 ml/min 50-250 [facility] GFR/1.73 sq M.predicted robyn g non-blacks MDRD (S/P/Bld) [Vol rate/Area]Ordered By: Frankie Mcdaniel on 06-15-2024 Estimated GFR (MDRD) Non-Af Amer 95 >60 [facility] Comment on above: mL/min/1.73m2 CKD-EP I Creatinine Equation (2020) Glomerular filtration rate ( GFR) estimation/1.73 sq m using serum, plasma, or whole bOrdered By: Frankie Mcdaniel on 06-15-2024 GFR/1.73 sq M.predicted among non-blacks MDRD (S/P/Bld) [Vol rate/Area] 95 mL/min/{1.73_m2} >60 [facility] Comment on above: mL/min/1.73m2 CKD-EP I Creatinine Equation (2020) Glucose Ql (U)Ordered By: Joseph Mcdaniel on 06-15-2024 Urine Glucose (UA) Normal mg/dl Normal [facility] Hematocrit Auto (Bld) [Volum e fraction]Ordered By[facility] on 06-15-2024 Hematocrit (Bld) [Volume fraction] 38.5 % 37-47 [facility] Hemoglobin measurementOrdere d By: [facility] on 06-15-2024 Hemoglobin (Bld) [Mass/Vol] 12.9 g/dL 12.0-15.0 [facility] Immature granulocytes/100 WB C Auto (Bld)Ordered By: [facility] on 06-15-2024 Immature granulocytes/100 WBC (Bld) 1.300 % High 0.0-0.9 [facility] Comment on above: IG% - Immature Granu locytes (promyelocytes, myelocytes and metamyelocytes) > 1% indicates that a LEFT SHIFT is Present. Ketones Test strip Ql (U)Ord ered By: [facility] on 06-15-2024 Ketones Ql (U) Negative Negative [facility] L499.0042on 06-15-2024 Trop T High Sen Normal <=14 [facility] Comment on above: Result Comment: Nestor russell via OM: Ordered Performed By: #### L [id number] #### [facility] [address] [place], [address] L501.4021on 06-15-2024 Trop T High Sen < 6 Normal <=14 [facility] Comment on above: Performed By: #### L 501.4021 #### [facility] [address] [place], [address] L503.7505on 06-15-2024 Natriuretic peptide B (Bld) [Mass/Vol] 59 pg/mL Normal <=450 [facility] Comment on above: Result Comment: Hear t Failure Unlikely: < 300 pg/mL Heart Failure Likely < 50 Years: > 450 pg/mL 50-75 Years: > 900 pg/mL >75 Years: > 1800 pg/mL Performed By: #### L 501.4021 #### [facility] [address] [facility] [place], [place], [address] LDHon 06-15-2024 LDH 169 U/L Normal 84-246 [facility] Comment on above: Performed By: #### L 501.4021 #### [facility] [address] [place], [place], [address] Laboratory - Chemistry and C hemistry - challengeOrdered By: Frnakie Mcdaniel on 06-15-2024 AST [Catalytic activity/Vol] 14 U/L <32 [facility] Lactate dehydrogenase (LDH) measurementOrdered By: Frankie Mcdaniel on 06-15-2024 LDH [Catalytic activity/Vol] 169 U/L 84-246 [facility] Lipaseon 06-15-2024 Lipase [Catalytic activity/Vol] 26 U/L Normal 13-75 [facility] Comment on above: Result Comment: Bacilio casarez note: LIPASE revised reference range effective 22. New Lipase methodology. Expected to produce lower values than the previous assay method. NEW Reference Range: 13 - 75 U/L Performed By: #### L 501.4021 #### [facility] [address] [place], [place], [address] Lipase measurementOrdered By : Frankie Mcdaniel on 06-15-2024 Lipase [Catalytic activity/Vol] 26 U/L 13-75 [facility] Comment on above: Please note:LIPASE r evised reference range effective 22. New Lipase methodology. Expected to produce lower values than the previous assay method. NEW Reference Range: 13 - 75 U/L Lymphocytes Auto (Unsp spec) [#/Vol]Ordered By: Frankie Mcdaniel on 06-15-2024 Lymphocytes (Bld) [#/Vol] 3.28 10*3/uL 0.83-4.51 [facility] Lymphocytes/100 WBC Auto (Un sp spec)Ordered By: Frankie Mcdaniel on 06-15-2024 Lymphocytes/100 WBC (Bld) 21.7 % 19-41 [facility] MCV (mean corpuscular volume ) determinationOrdered By: Frankie Mcdaniel on 06-15-2024 MCV (RBC) [Entitic vol] 92.3 fL 81-99 [facility] Mean corpuscular hemoglobin (MCH) determinationOrdered By: Frankie Mcdaniel on 06-15-2024 MCH (RBC) [Entitic mass] 30.9 pg 27.0-32.0 [facility] Mean corpuscular hemoglobin concentration (MCHC) determinationOrdered By: Frankie Mcdaniel on 06-15-2024 MCHC (RBC) [Mass/Vol] 33.5 g/dL 32-36 [facility] Mean platelet volume determi nationOrdered By: Frankie Mcdaniel on 06-15-2024 Platelet mean volume (Bld) [Entitic vol] 10.2 fL 6.2-12.0 [facility] Microscopic analysis of urin e for red blood cells (RBC)Ordered By: Frankie Mcdaniel on 06-15-2024 Microscopic analysis of urine for red blood cells (RBC) 0 SEEN /hpf 0-5 [facility] Urine RBC 0 SEEN /hpf 0-5 [facility] Monocyte percentageOrdered B y: Frankie Mcdaniel on 06-15-2024 Monocytes/100 WBC (Bld) 6.4 % 0-10 [facility] Mucus LM Ql (Urine sed)Order ed By: Frankie Mcdaniel on 06-15-2024 Mucus Ql (Urine sed) 0 SEEN /hpf [facility] Natriuretic peptide.B prohor nathaly N-Terminal [Mass/Vol]Ordered By: Frankie Mcdaniel on 06-15-2024 Natriuretic peptide B (Bld) [Mass/Vol] 59 pg/mL <450 [facility] Comment on above: Heart Failure Unlike ly: < 300 pg/mLHeart Failure Likely< 50 Years: > 450 pg/mL50-75 Years: > 900 pg/mL>75 Years: > 1800 pg/mL Natriuretic peptide.B prohor nathaly N-Terminal [Mass/volume] in Serum or PlasmaOrdered By: Frankie Mcdaniel on 06-15-2024 Natriuretic peptide.B prohormone N-Terminal [Mass/Vol] 59 pg/mL <450 [facility] Comment on above: Heart Failure Unlike ly: < 300 pg/mLHeart Failure Likely< 50 Years: > 450 pg/mL50-75 Years: > 900 pg/mL>75 Years: > 1800 pg/mL Neutrophil percentageOrdered By: Frankie Mcdaniel on 06-15-2024 Neutrophils/100 WBC (Bld) 65.4 % 47-70 [facility] Nitrite Test strip Ql (U)Ord ered By: Frankie Mcdaniel on 06-15-2024 Nitrite Ql (U) Negative Negative [facility] Nucleated red blood cell per centageOrdered By: Frankie Mcdaniel on 06-15-2024 Nucleated RBC/100 WBC (Bld) [Ratio] 0 % 0-5 [facility] Platelet countOrdered By: Joseph Mcdaniel on 06-15-2024 Platelets (Bld) [#/Vol] 264 10*3/uL 150-450 [facility] Potassium (Unsp spec) [Mass/ Vol]Ordered By: Frankie Violeta on 06-15-2024 Potassium [Moles/Vol] 3.2 mmol/L Low 3.3-5.1 [facility] Potassium measurement (mass/ volume)Ordered By: Frankie Mcdaniel on 06-15-2024 Potassium (Unsp spec) [Mass/Vol] 3.2 mmol/L Low 3.3-5.1 [facility] Protein Test strip Ql (U)Ord ered By: Frankie Mcdaniel on 06-15-2024 Protein Ql (U) 15 mg/dl High Negative [facility] RBC Auto (Bld) [#/Vol]Ordere d By: Frankie Mcdaniel on 06-15-2024 RBC (Bld) [#/Vol] 4.17 10*6/uL Low 4.2-5.[address] [facility] Serum creatinine measurement (mass/volume)Ordered By: Frankie Mcdaniel on 06-15-2024 Creatinine [Mass/Vol] 0.88 mg/dL 0.70-1.20 [facility] Serum globulin measurementOr dered By: Frankie Mcdaniel on 06-15-2024 Globulin (S) [Mass/Vol] 2.6 g/dL 2.2-4.2 [facility] Serum glucose measurement (m ass/volume)Ordered By: Frankie Mcdaniel on 06-15-2024 Glucose [Mass/Vol] 86 mg/dL 70-99 [facility] Serum or plasma alanine bobo otransferase (ALT) measurementOrdered By: Frankie Mcdaniel on 06-15-2024 ALT [Catalytic activity/Vol] 8 U/L <35 [facility] Serum or plasma albumin noa urement (mass/volume)Ordered By: Frankie Tanner on 06-15-2024 Albumin [Mass/Vol] 3.8 g/dL 3.5-5.0 [facility] Serum or plasma albumin/glob ulin mass ratioOrdered By: Frankie Mcdaniel on 06-15-2024 Albumin/Globulin [Mass ratio] 1.5 {ratio} 0.9-2.4 [facility] Serum or plasma alkaline nancy sphatase measurementOrdered By: Frankie Mcdaniel on 06-15-2024 ALP [Catalytic activity/Vol] 84 U/L 35-104 [facility] Serum or plasma calcium noa urement (mass/volume)Ordered By: Frankie Tanner on 06-15-2024 Calcium [Mass/Vol] 9.0 mg/dL 7.6-11.0 [facility] Serum or plasma urea nitroge n measurement (mass/volume)Ordered By: Frankie Mcdaniel on 06-15-2024 Urea nitrogen [Mass/Vol] 4 mg/dL 4-19 [facility] Sodium levelOrdered By: Jeff Mcdaniel on 06-15-2024 Sodium [Moles/Vol] 137 mmol/L 133-145 [facility] Squamous epithelial cells de tection in urine sediment by light microscopyOrdered By: Frankie Mcdaniel on 06-15-2024 Epithelial cells.squamous LM Ql (Urine sed) 0-5 SEEN /hpf 5-10 [facility] Total proteinOrdered By: Jc Mcdaniel on 06-15-2024 Protein [Mass/Vol] 6.4 g/dL 5.9-8.4 [facility] Troponin T.cardiac High sens itivity method [Mass/Vol]Ordered By: Frankie Tanner on 06-15-2024 Troponin T High Sensitivity < 6 ng/L <14 [facility] Troponin T.cardiac [Mass/vol ume] in Serum or Plasma by High sensitivity methodOrdered By: Frankie Mcdaniel on 06-15-2024 Troponin T.cardiac High sensitivity method [Mass/Vol] < 6 ng/L <14 [facility] Urinalysis, Completeon 06-15 EPI,SQUAMOUS 0-5 SEEN Normal -10 [facility] Comment on above: Order Comment: CLEAN CATCH Performed By: #### L 400.0001 #### [facility] [address] [place], [address] BACTERIA 0 SEEN Normal None Seen [facility] Comment on above: Order Comment: CLEAN CATCH Performed By: #### L 400.0001 #### [facility] [address] [place], [address] Mucus Ql (Urine sed) 0 SEEN Normal [facility] Comment on above: Order Comment: CLEAN CATCH Performed By: #### L 400.0001 #### [facility] [address] [place], [address] RBC 0 SEEN Normal 0-5 [facility] Comment on above: Order Comment: CLEAN CATCH Performed By: #### L 400.0001 #### [facility] [address] [place], [address] WBC 0 SEEN Normal 0-5 [facility] Comment on above: Order Comment: CLEAN CATCH Performed By: #### L 400.0001 #### [facility] [address] [place], [address] Urine blood detectionOrdered By: Frankie Mcdaniel on 06-15-2024 Urine Occult Blood Negative Negative [facility] Urine clarityOrdered By: Jc Mcdaniel on 06-15-2024 Clarity (U) Sl. Cloudy Clear [facility] Urine color determinationOrd ered By: Frankie Mcdaniel on 06-15-2024 Color (U) Yellow Yellow [facility] Urine glucose detectionOrder ed By: Frankie Mcdaniel on 06-15-2024 Glucose Ql (U) Normal mg/dl Normal [facility] Urine leukocyte esterase det ection by dipstickOrdered By: Frankie Mcdaniel on 06-15-2024 Leukocyte esterase Test strip Ql (U) Negative Negative [facility] Urine pHOrdered By: Frankie Darnell on 06-15-2024 pH (U) 7.0 [pH] 5.0 - 8.0 [facility] Urine sediment bacteria coun t by microscopy (number/high power field)Ordered By: Frankie Mcdaniel on 06-15-2024 Bacteria LM.HPF (Urine sed) [#/Area] 0 /[HPF] None Seen [facility] Urine specific gravity measu rementOrdered By: Frankie Mcdaniel on 06-15-2024 Specific gravity (U) [Rel density] 1.005 1.002-1.030 [facility] Urine urobilinogen measureme ntOrdered By: Frankie Mcdaniel on 06-15-2024 Urobilinogen Ql (U) Normal mg/dl Normal [facility] Urobilinogen Ql (U)Ordered B y: Frankie Mcdaniel on 06-15-2024 Urine Urobilinogen Normal mg/dl Normal [facility] White blood cell (WBC) count Ordered By: Frankie Mcdaniel on 06-15-2024 WBC (Bld) [#/Vol] 15.1 10*3/uL High 4.4-11.[address] [facility] White blood cell countOrdere d By: Frankie Mcdaniel on 06-15-2024 Urine WBC 0 SEEN /hpf 0-5 [facility] White blood cell count 0 SEEN /hpf 0-5 [facility] CBC W Auto Differential pane l (Bld)on 06-13-2024 Basophils (Bld) [#/Vol] 0.04 10*3/uL Normal <0.11 [facility] Comment on above: Order Comment: Speci men Type: BLOOD SPECIMENOrdering Facility: [facility] Address: [address] [place] [address] Performed By: #### 5 7021-8 ####[facility] [id number] [place] [address] [place] Basophils/100 WBC (Bld) 0.3 % Normal C [facility] Comment on above: Order Comment: Speci men Type: BLOOD SPECIMENOrdering Facility: [facility] Address: [address] [place] [address] Performed By: #### 5 7021-8 ####[facility] [id number] [place] [address] [place] Differential cell count method Nom (Bld) Auto Normal [facility] Comment on above: Order Comment: Speci men Type: BLOOD SPECIMENOrdering Facility: [facility] Address: [address] [place] [address] Performed By: #### 5 7021-8 ####[facility] [id number] [place] [address] [place] Eosinophils (Bld) [#/Vol] 0.47 10*3/uL High <0.46 [facility] Comment on above: Order Comment: Speci men Type: BLOOD SPECIMENOrdering Facility: [facility] Address: [address] [place] [address] Performed By: #### 5 7021-8 ####[facility] [id number] [place] [address] [place] Eosinophils/100 WBC (Bld) 3.5 % Normal [facility] Comment on above: Order Comment: Speci men Type: BLOOD SPECIMENOrdering Facility: [facility] Address: [address] [place] [address] Performed By: #### 5 7021-8 ####[facility] [id number] [place] [address] [place] Erythrocyte distribution width (RBC) [Ratio] 13.7 % Normal 11.5-15.0 [facility] Comment on above: Order Comment: Speci men Type: BLOOD SPECIMENOrdering Facility: [facility] Address: [address] [place] [address] Performed By: #### 5 7021-8 ####[facility] [id number] [place] [address] [place] Hematocrit (Bld) [Volume fraction] 37.4 % Normal 36.0-46.0 [facility] Comment on above: Order Comment: Speci men Type: BLOOD SPECIMENOrdering Facility: [facility] Address: [address] [place] [address] Performed By: #### 5 7021-8 ####[facility] [id number] [place] [address] [place] Hemoglobin (Bld) [Mass/Vol] 13.1 g/dL Normal 11.5-15.5 [facility] Comment on above: Order Comment: Speci men Type: BLOOD SPECIMENOrdering Facility: [facility] Address: [address] [place] [address] Performed By: #### 5 7021-8 ####[facility] [id number] [place] [address] [place] Immature granulocytes (Bld) [#/Vol] 0.35 10*3/uL High <0.10 [facility] Comment on above: Order Comment: Speci men Type: BLOOD SPECIMENOrdering Facility: [facility] Address: [address] [place] [address] Performed By: #### 5 7021-8 ####[facility] MILLTOWNCLIA [id number] [place] [address] [place] Immature granulocytes/100 WBC (Bld) 2.6 % Normal [facility] Comment on above: Order Comment: Speci men Type: BLOOD SPECIMENOrdering Facility: [facility] Address: [address] [place] [address] Performed By: #### 5 7021-8 ####[facility] ERNCLIA [id number] [place] [address] [place] Lymphocytes (Bld) [#/Vol] 2.24 10*3/uL Normal 1.00-4.00 [facility] Comment on above: Order Comment: Speci men Type: BLOOD SPECIMENOrdering Facility: [facility] Address: [address] [place] [address] Performed By: #### 5 7021-8 ####[facility] [id number] [place] [address] [place] Lymphocytes/100 WBC (Bld) 16.7 % Normal [facility] Comment on above: Order Comment: Speci men Type: BLOOD SPECIMENOrdering Facility: [facility] Address: [address] [place] [address] Performed By: #### 5 7021-8 ####[facility] ERNCLIA [id number] [place] [address] [place] MCH (RBC) [Entitic mass] 31.6 pg Normal 26.0-34.0 [facility] Comment on above: Order Comment: Speci men Type: BLOOD SPECIMENOrdering Facility: [facility] Address: [address] [place] [address] Performed By: #### 5 7021-8 ####[facility] ERNCLIA [id number] [place] [address] [place] MCHC (RBC) [Mass/Vol] 35.0 g/dL Normal 30.5-36.0 [facility] Comment on above: Order Comment: Speci men Type: BLOOD SPECIMENOrdering Facility: [facility] Address: [address] [place] [address] Performed By: #### 5 7021-8 ####[facility] [id number] [place] [address] [place] MCV (RBC) [Entitic vol] 90.1 fL Normal 80.0-100.0 C [facility] Comment on above: Order Comment: Speci men Type: BLOOD SPECIMENOrdering Facility: [facility] Address: [address] [place] [address] Performed By: #### 5 7021-8 ####[facility] [id number] [place] [address] [place] Monocytes (Bld) [#/Vol] 0.90 10*3/uL High <0.87 [facility] Comment on above: Order Comment: Speci men Type: BLOOD SPECIMENOrdering Facility: [facility] Address: [address] [place] [address] Performed By: #### 5 7021-8 ####[facility] [id number] [place] [address] [place] Monocytes/100 WBC (Bld) 6.7 % Normal C [facility] Comment on above: Order Comment: Speci men Type: BLOOD SPECIMENOrdering Facility: [facility] Address: [address] [place] [address] Performed By: #### 5 7021-8 ####[facility] ERNCLIA [id number] [place] [address] [place] Neutrophils (Bld) [#/Vol] 9.38 10*3/uL High 1.45-7.50 [facility] Comment on above: Order Comment: Speci men Type: BLOOD SPECIMENOrdering Facility: [facility] Address: [address] [place] [address] Performed By: #### 5 7021-8 ####[facility] [id number] [place] [address] [place] Neutrophils/100 WBC (Bld) 70.2 % Normal [facility] Comment on above: Order Comment: Speci men Type: BLOOD SPECIMENOrdering Facility: [facility] Address: [address] [place] [address] Performed By: #### 5 7021-8 ####[facility] [id number] [place] [address] [place] Nucleated RBC (Bld) [#/Vol] 10*3/uL Normal <0.01 [facility] Comment on above: Order Comment: Speci men Type: BLOOD SPECIMENOrdering Facility: [facility] Address: [address] [place] [address] Performed By: #### 5 7021-8 ####[facility] [id number] [place] [address] [place] Nucleated RBC/100 WBC (Bld) [Ratio] 0.0 /100 WBC Normal [facility] Comment on above: Order Comment: Speci men Type: BLOOD SPECIMENOrdering Facility: [facility] Address: [address] [place] [address] Performed By: #### 5 7021-8 ####[facility] [id number] [place] [address] [place] Platelet mean volume (Bld) [Entitic vol] 9.6 fL Normal 9.0-12.7 [facility] Comment on above: Order Comment: Speci men Type: BLOOD SPECIMENOrdering Facility: [facility] Address: [address] [place] [address] Performed By: #### 5 7021-8 ####[facility] MACKNCLIA [id number] [place] [address] [place] Platelets (Bld) [#/Vol] 241 10*3/uL Normal 150-400 [facility] Comment on above: Order Comment: Speci men Type: BLOOD SPECIMENOrdering Facility: [facility] Address: [address] [place] [address] Performed By: #### 5 7021-8 ####[facility] TRACIVESUVIUSNCLIA [id number] [place] [address] [place] RBC (Bld) [#/Vol] 4.15 10*6/uL Normal 3.90-5.20 [facility] Comment on above: Order Comment: Speci men Type: BLOOD SPECIMENOrdering Facility: [facility] Address: [address] [place] [address] Performed By: #### 5 7021-8 ####[facility] ERNCLIA [id number] [place] [address] [place] WBC (Bld) [#/Vol] 13.38 10*3/uL High 3.70-11.00 [facility] Comment on above: Order Comment: Speci men Type: BLOOD SPECIMENOrdering Facility: [facility] Address: [address] [place] [address] Performed By: #### 5 7021-8 ####[facility] ERNCLIA [id number] [place] [address] [place] GESTATIONAL GLUCOSE SCREEN, 1-HOUR, 50 GRAM, NON-FASTINGon 06-13-2024 Glucose [Mass/Vol] 102 mg/dL Normal 74-134 [facility] Comment on above: Order Comment: Speci men Type: BLOOD SPECIMENOrdering Facility: [facility] Address: [address] [place] [address] Result Comment: [facility] Congress of Obstetricians and Gynecologists (Claudio/Berry) guidelines state a gestational diabetes mellitus positive screen is made, in women not previously diagnosed with overt diabetes, when the 1 hr plasma glucose level is equal to or above 140 mg/dL. [facility] recommends a 135 mg/dL cutoff. Performed By: #### G LTGST ####[facility] [id number] [place] [address] [place] Reagin and Treponema pallidu m IgG and IgM [Interp]on 06-13-2024 T. pallidum IgG+IgM IA Ql (S) Non-Reactive Normal Nonreactive [facility] Comment on above: Order Comment: Speci men Type: BLOOD SPECIMENOrdering Facility: [facility] Address: [address] [place] [address] Performed By: #### 7 3752-8 ####[facility] [id number] [place] [address] [place] Reagin+T pallidum IgG+IgM Se rPl-Impon 06-13-2024 Reagin and Treponema pallidum IgG and IgM [Interp] Cannot exclude recent Treponemal infection if specimen collected within 7-10 days after appearance of suspect lesions or 2-3 weeks after an exposure. Clinical correlation is required. Normal [facility] Comment on above: Order Comment: Speci men Type: BLOOD SPECIMENOrdering Facility: [facility] Address: [address] [place] [address] Performed By: #### 7 3752-8 ####[facility] [id number] [place] [id number] [place] TYPE + SCREEN PRENATALon ABO O Normal [facility] Comment on above: Order Comment: Speci men Type: BLOOD SPECIMENOrdering Facility: [facility] Address: [address], [place] [address] Performed By: #### T SPN ####[facility] BLO[facility] BANKCLIA [id number] [address] Rh Nom (Bld) Negative Normal [facility] Comment on above: Order Comment: Speci men Type: BLOOD SPECIMENOrdering Facility: [facility] Address: [address] [place] [address] Performed By: #### T SPN ####[facility] BLOOD BANKCLIA [id number] [address] TYPE AND SCREEN EXPIRATION 06/16/2024 23:59 Normal [facility] Comment on above: Order Comment: Speci men Type: BLOOD SPECIMENOrdering Facility: [facility] Address: [address] [place] [address] Performed By: #### T SPN ####[facility] BLOOD BANKCLIA [id number] [address] CNPNon 06-10-2024 CNPN Telephone (4CQ) STEWART ZUNIGA ([id number]) 4 F Date Time Provider Department 06/10/24 [...] 1 capsule by mouth once daily. - [id number]-[id number] acid ( 19) 29 mg iron- 1 [...] Encounter Status:Closed by SHARON YUSUF on 06/10/24 Normal [facility] CNPN Telephone (OBGYWM) STEWART ZUNIGA ([id number]) 4 F Date Time Provider Department 06/10/24 [...] Signed Left message for patient to check [employer] message or call office. Sharon Yusuf RN Allergies As of Date: 06/10/2024 Noted Allergy Reaction ADHESIVE 10/23/2023 4 - Hives LACTOSE 10/23/2023 8 - GI Upset Date Reviewed: 06/04/2024 Reviewed by: Manas Vogel MA - Fully Assessed Reason for Visit: OB back pain [Other] Prescriptions as of 06/10/2024 - omeprazole (PRILOSEC) 10 mg capsule Take 1 capsule by mouth once daily. - dd014-jhkg-[id number] acid ( 19) 29 mg iron- 1 [...] Encounter Status:Closed by GEORGIA WREN on 06/10/24 [facility] Sheila 2024 CNPN Telephone (OBGYWM) STEWART ZUNIGA ([id number]) 4 F Date Time Provider Department 04/24/24 AMBREEN ROMERO OBGUCCIWShashi During your visit today, we recorded the following information about you: Sharon Yusuf, RN 2024 11:49 AM Signed 21w6d Patient's mother calling for her. She has GI virus with vomiting and diarrhea for over 24 hours. Mother talked to provider sales receptionist early this morning and gave 2 imodium [...] Status:Closed by SHARON YUSUF on 04/24/24 Normal [facility] Examination level ultrasound on 04-14-2024 Indication [...] 13 oz EFW by: Hadlock (HC-AC-FL) Extended [employer] Specialist 6.6 mm CM 3.3 mm 5% Nicolaides [...] normal LVOT view: normal 3-vessel view: normal 7-ppdexz-kzwntgv view: normal Heart / Thorax Situs: situs [...] Read By: Marlene Prakash M.D. MATERNAL MEDICINE [facility] Radiology Study observation (narrative) Adriana irby [facility] CNCOon 03-31-2024 CNCO Letter Text Normal [facility] CNOVon 03-28-2024 CNOV Office Visit (CARDMN) STEWART ZUNIGA ([id number]) 4 F Date Time Provider Department 03/28/24 9:15 AM JAY BYRD CARDMN During your visit today, we recorded the following information about you: Pulse Blood pressure Weight Height 79/minute 114/71 60.3 kg 1.562 m Jay Byrd MD 03/28/2024 10:26 AM Signed [facility]ell[facility] Department of Cardiovascular Medicine SECTION OF CARDIAC PACING and ELECTROPHYSIOLOGY OUTPATIENT VISIT DATE March 28, 2024 OUTPATIENT VISIT TYPE ESTABLISHED PRIMARY CARE PHYSICIAN: Kayleen Mckay MD [facility] [place] [id number] CHIEF COMPLAINT: Follow-up for tachycardia and syncope [...] in office 12/24/2023. She was given a [employer] monitor and mailed it back but monitor was never received by [employer] (confirmed with company). Echo 12/24/2023 showed EF=63% [...] visit a (more content not included)... Normal [facility] ECG COMPLETEon 03-28-2024 ECG COMPLETE Ventricular Rate : 72 BPM Atrial Rate : 72 BPM P-R Interval : 130 ms QRS Duration : 84 ms Q-T Interval : 368 ms QTC Calculation(Bazett) : 402 ms Calculated P [place] : 21 degrees Calculated R [place] : 64 degrees Calculated T [place] : 48 degrees NORMAL SINUS RHYTHM NORMAL ECG Confirmed by ALISTAIR MARTINEZ MD ([id number]) on 04/15/2024 9:35:54 AM NAME : STEWART ZUNIGA PID : [id number] : 2000 Gender : Female Race : ORD : [id number] Procedure Date : Mar 28 2024 08:33:06 Edit Date : Apr 15 2024 09:35:55 Diagnosis: NORMAL SINUS RHYTHM NORMAL ECG Confirmed by ALISTAIR MARTINEZ MD ([id number]) on 04/15/2024 9:35:54 AM Test Reason : Location : 314 : J14 Overread By : ALISTAIR MARTINEZ MD Edited By : ALISTAIR MARTINEZ MD Referred By : JAY BYRD Acquired by : MEGAN WARREN Normal [facility] 12 Lead EKGon 03-24-2024 12 Lead EKG [facility] [address] [place] [address] 12 Lead EKG 03/24/24 1830 MR#: [id number] Acct: [id number] Name: STEWART ZUNIGA Rep #: [id number] : 2000 23 From: Cailin Joy MD [...] Confirmed by RUFINO SANTIAGO, JOSE M ([id number]), online editor AGUSTIN MCCLURE ([id number]) on 03/31/2024 2:24:00 PM Referred By: Confirmed By: JOSE M JOY MD 03/31/24 1424 Date Cailin Joy MD CC: Dr. Len Haile DO; No Primary Care Physician Signed Normal [facility] Absolute lymphocyte countOrd ered By: Len Haile on 03-24-2024 Lymphocytes Auto (Unsp spec) [#/Vol] 2.49 10*3/uL 0.83-4.51 [facility] Absolute neutrophil countOrd ered By: Len Haile on 03-24-2024 Neutrophils (Bld) [#/Vol] 11.5 10*3/uL High 2.0-7.7 [facility] Albumin to globulin ratioOrd ered By: Len Haile on 03-24-2024 Albumin/Globulin [Mass ratio] 1.0 {ratio} 0.9-2.4 [facility] Automated lymphocyte count a s percentage of total leukocytesOrdered By: Len Haile on 03-24-2024 Lymphocytes/100 WBC Auto (Unsp spec) 16.4 % Low 19-41 [facility] Basophil percentageOrdered B y: Len Haile on 03-24-2024 Basophils/100 WBC (Bld) 0.2 % 0-1 [facility] Bilirubin, totalOrdered By: Len Haile on 03-24-2024 Bilirubin [Mass/Vol] 0.40 mg/dL 0.20-1.00 [facility] Comment on above: For patients on eltr ombopag therapy, use of Dimension [place] TBIL is not recommended. Blood urea nitrogen (BUN)/cr eatinine ratioOrdered By: Len Haile on 03-24-2024 Urea nitrogen/Creatinine [Mass ratio] 7.2 mg/mg Low 10-20 [facility] CBC W/Diff, Automatedon 03-06 Absolute Lymph 2.49 X10 3/uL Normal 0.83-4.51 [facility] Comment on above: Performed By: #### L 501.4021 #### [facility] [address] [place], [address] Absolute Neut 11.5 X10 3/uL High 2.0-7.7 [facility] Comment on above: Performed By: #### L 501.4021 #### [facility] [address] [place], [address] Basophils/100 WBC (Bld) 0.2 % Normal 0-1 [facility] Comment on above: Performed By: #### L 501.4021 #### [facility] [address] [place], [address] Eosinophils/100 WBC (Bld) 2.6 % Normal 0-5 [facility] Comment on above: Performed By: #### L 501.4021 #### [facility] [address] [place], [address] Erythrocyte distribution width (RBC) [Ratio] 13.3 % Normal 11.6-14.6 [facility] Comment on above: Performed By: #### L 501.4021 #### [facility] [address] [place], [address] Hematocrit (Bld) [Volume fraction] 39.2 % Normal 37-47 [facility] Comment on above: Performed By: #### L 501.4021 #### [facility] [address] [place], [address] Hemoglobin (Bld) [Mass/Vol] 13.5 g/dL Normal 12.0-15.0 [facility] Comment on above: Performed By: #### L 501.4021 #### [facility] [address] [place], [address] IG% 0.300 Normal 0.0-0.9 [facility] Comment on above: Result Comment: IG% - Immature Granulocytes (promyelocytes, myelocytes and metamyelocytes) > 1% indicates that a LEFT SHIFT is Present. Performed By: #### L 501.4021 #### [facility] [address] [place], [address] Lymphocytes/100 WBC (Bld) 16.4 % Low 19-41 [facility] Comment on above: Performed By: #### L 501.4021 #### [facility] [address] [place], [address] MCH (RBC) [Entitic mass] 29.9 pg Normal 27.0-32.0 [facility] Comment on above: Performed By: #### L 501.4021 #### [facility] [address] [place], [address] MCHC (RBC) [Mass/Vol] 34.4 g/dL Normal 32-36 [facility] Comment on above: Performed By: #### L 501.4021 #### [facility] [address] [place], [address] MCV (RBC) [Entitic vol] 86.9 fL Normal 81-99 [facility] Comment on above: Performed By: #### L 501.4021 #### [facility] [address] [place], [address] Monocytes/100 WBC (Bld) 4.7 % Normal 0-10 [facility] Comment on above: Performed By: #### L 501.4021 #### [facility] [address] [place], [address] Neutrophils/100 WBC (Bld) 75.8 % High 47-70 [facility] Comment on above: Performed By: #### L 501.4021 #### [facility] [address] [place], [address] Nucleated RBC (Bld) [#/Vol] 0 10*3/uL Normal 0-5 [facility] Comment on above: Performed By: #### L 501.4021 #### [facility] [address] [place], [address] Platelet mean volume (Bld) [Entitic vol] 9.5 fL Normal 6.2-12.0 [facility] Comment on above: Performed By: #### L 501.4021 #### [facility] [address] [place], [address] Platelets (Bld) [#/Vol] 309 10*3/uL Normal 150-450 [facility] Comment on above: Performed By: #### L 501.4021 #### [facility] [address] [place], [address] RBC (Bld) [#/Vol] 4.51 10*6/uL Normal 4.2-5.[address] [facility] Comment on above: Performed By: #### L 501.4021 #### [facility] [address] [place], [address] RDW SD 42.0 fl Normal 35.1-43.9 [facility] Comment on above: Performed By: #### L 501.4021 #### [facility] [address] [place], [address] WBC (Bld) [#/Vol] 15.2 10*3/uL High 4.4-11.[address] [facility] Comment on above: Performed By: #### L 501.4021 #### [facility] [address] [place], [address] Carbon dioxide measurementOr dered By: Len Haile on 03-24-2024 CO2 [Moles/Vol] 22.0 mmol/L 21.0-32.0 [facility] Chloride measurementOrdered By: Len Haile on 03-24-2024 Chloride [Moles/Vol] 109 mmol/L High 98-107 [facility] Comprehensive Metabolic Prof ilon 03-24-2024 Albumin [Mass/Vol] 3.4 g/dL Normal 3.2-5.0 [facility] Comment on above: Performed By: #### L 501.4021 #### [facility] [address] [place], [address] Albumin/Globulin [Mass ratio] 1.0 {ratio} Normal 0.9-2.4 [facility] Comment on above: Performed By: #### L 501.4021 #### [facility] [address] [place], [address] ALK P 59 U/L Normal 45-117 [facility] Comment on above: Performed By: #### L 501.4021 #### [facility] [address] [place], [address] ALT [Catalytic activity/Vol] 21 U/L Normal 13-56 [facility] Comment on above: Performed By: #### L 501.4021 #### [facility] [address] [place], [address] AST [Catalytic activity/Vol] 14 U/L Low 15-37 [facility] Comment on above: Performed By: #### L 501.4021 #### [facility] [address] [place], [address] Bilirubin [Mass/Vol] 0.40 mg/dL Normal 0.20-1.00 [facility] Comment on above: Result Comment: For patients on eltrombopag therapy, use of Dimension [place] TBIL is not recommended. Performed By: #### L 501.4021 #### [facility] [address] [place], [address] BUN/CRE 7.2 RATIO Low 10-20 [facility] Comment on above: Performed By: #### L 501.4021 #### [facility] [address] [place], [address] CA,Total 9.2 mg/dL Normal 8.5-10.1 [facility] Comment on above: Performed By: #### L 501.4021 #### [facility] [address] [place], [address] Chloride [Moles/Vol] 109 mmol/L High 98-107 [facility] Comment on above: Performed By: #### L 501.4021 #### [facility] [address] [place], [address] CO2 [Moles/Vol] 22.0 mmol/L Normal 21.0-32.0 [facility] Comment on above: Performed By: #### L 501.4021 #### [facility] [address] [place], [address] Creatinine [Mass/Vol] 0.55 mg/dL Normal 0.55-1.02 [facility] Comment on above: Result Comment: The validity of the calculated GFR GFRAA in patients over 70 years has not been determined. Clinical correlation is essential. Performed By: #### L 501.4021 #### [facility] [address] [place], [address] ECRCL 136.75 ml/min Normal [facility] Comment on above: Performed By: #### L 501.4021 #### [facility] [address] [place], [address] EST GFR - AA 177 mL/min Normal >60 [facility] Comment on above: Result Comment: Afri can Icelandic GFR Calc Performed By: #### L 501.4021 #### [facility] [address] [place], [address] GAP 8 Normal 5-15 [facility] Comment on above: Performed By: #### L 501.4021 #### [facility] [address] [place], [address] GFR/1.73 sq M.predicted among non-blacks MDRD (S/P/Bld) [Vol rate/Area] 146 mL/min/{1.73_m2} Normal >60 [facility] Comment on above: Result Comment: Non- GFR Calc Performed By: #### L 501.4021 #### [facility] [address] [place], [address] Globulin (S) [Mass/Vol] 3.4 g/dL Normal 2.2-4.2 [facility] Comment on above: Performed By: #### L 501.4021 #### [facility] [address] [place], [address] Glucose [Mass/Vol] 98 mg/dL Normal 74-106 [facility] Comment on above: Performed By: #### L 501.4021 #### [facility] [address] [place], [address] Potassium [Moles/Vol] 3.2 mmol/L Low 3.5-5.1 [facility] Comment on above: Performed By: #### L 501.4021 #### [facility] [address] [place], [place], [address] Sodium [Moles/Vol] 139 mmol/L Normal 136-145 [facility] Comment on above: Performed By: #### L 501.4021 #### [facility] [address] [place], [place], [address] T PROT 6.8 g/dL Normal 6.4-8.2 [facility] Comment on above: Performed By: #### L 501.4021 #### [facility] [address] [place], [place], [address] Urea nitrogen [Mass/Vol] 4 mg/dL Low 7-18 [facility] Comment on above: Performed By: #### L 501.4021 #### [facility] [address] [place], [place], [address] Emergency Department Summary on 03-24-2024 Emergency Department Summary [facility] Medical Records Department [address] [place] [address] Emergency Department Summary 03/24/24 MR#: [id number] Acct: [id number] Name: STEWART ZUNIGA Rep #: [id number] : 2000 23 From: Len Haile DO PCP: Care Physician,No Primary Status:REG ER Location: ED HPI History of Present Illness Chief Complaint: Nausea/Vomiting/Diar nereida [facility] Medical History Physical exam, pre-employment [...] History obtained from others: none Consults: none MDM Narrative: Patient was initially tachycardic rate of 122, otherwise afebrile and nontoxic-appearing. Exam with benign abdomen. No peritoneal signs. Gravid uterus. No significant tenderness noted. I considered the following differential diagnosis: loss, dehydration, viral gastroenteritis, electrolyte disturbances, UTI I obtained a broad lab and imaging workup to further elucidate etiology of patient complaints. I gave patient IV fluids (more content not included)... Normal [facility] Eosinophil percentageOrdered By: Len Haile on 03-24-2024 Eosinophils/100 WBC (Bld) 2.6 % 0-5 [facility] Erythrocyte distribution wid th (RBC) [Ratio]Ordered By: Len Haile on 03-24-2024 Erythrocyte distribution width (RBC) [Entitic vol] 42.0 fL 35.1-43.9 [facility] Erythrocyte distribution wid th ratioOrdered By: Len Haile on 03-24-2024 Erythrocyte distribution width (RBC) [Ratio] 13.3 % 11.6-14.6 [facility] Erythrocyte distribution wid th standard deviationOrdered By: Len Haile on 03-24-2024 Erythrocyte distribution width (RBC) [Ratio] 42.0 fl 35.1-43.9 [facility] Estimated glomerular filtrat ion rate (GFR) AmericanOrdered By: Len Haile on 03-24-2024 Estimated GFR (MDRD) Amer 177 mL/min >60 [facility] Comment on above: GFR Calc Estimation of creatinine elvis aranceOrdered By: Len Haile on 03-24-2024 Estimated Creatinine Clearance Calc 136.75 ml/min [facility] Glomerular filtration rate ( GFR) estimationOrdered By: Len Haile on 03-24-2024 Estimated GFR (MDRD) Non-Af Amer 146 mL/min >60 [facility] Comment on above: Non- GFR Calc GFR/1.73 sq M.predicted among non-blacks MDRD (S/P/Bld) [Vol rate/Area] 146 mL/min/{1.73_m2} >60 [facility] Comment on above: Non- GFR Calc Glucose measurementOrdered B y: Len Haile on 03-24-2024 Glucose [Mass/Vol] 98 mg/dL 74-106 [facility] Hematocrit Auto (Bld) [Volum e fraction]Ordered By: Len Haile on 03-24-2024 Hematocrit (Bld) [Volume fraction] 39.2 % 37-47 [facility] Hemoglobin measurementOrdere d By: Len Haile on 03-24-2024 Hemoglobin (Bld) [Mass/Vol] 13.5 g/dL 12.0-15.0 [facility] Immature granulocytes/100 WB C Auto (Bld)Ordered By: Len Haile on 03-24-2024 Immature granulocytes/100 WBC (Bld) 0.300 % 0.0-0.9 [facility] Comment on above: IG% - Immature Granu locytes (promyelocytes, myelocytes and metamyelocytes) > 1% indicates that a LEFT SHIFT is Present. Laboratory - Chemistry and C hemistry - challengeOrdered By: Len Haile on 03-24-2024 AST [Catalytic activity/Vol] 14 U/L Low 15-37 [facility] Lipaseon 03-24-2024 Lipase [Catalytic activity/Vol] 19 U/L Normal 13-75 [facility] Comment on above: Result Comment: Bacilio casarez note: LIPASE revised reference range effective 22. New Lipase methodology. Expected to produce lower values than the previous assay method. NEW Reference Range: 13 - 75 U/L Performed By: #### L 501.4021 #### [facility] [address] [place], [address] Lipase measurementOrdered By : Len Haile on 03-24-2024 Lipase [Catalytic activity/Vol] 19 U/L 13-75 [facility] Comment on above: Please note:LIPASE r evised reference range effective 22. New Lipase methodology. Expected to produce lower values than the previous assay method. NEW Reference Range: 13 - 75 U/L Lymphocytes Auto (Unsp spec) [#/Vol]Ordered By: Len Haile on 03-24-2024 Lymphocytes (Bld) [#/Vol] 2.49 10*3/uL 0.83-4.51 [facility] Lymphocytes/100 WBC Auto (Un sp spec)Ordered By: Len Haile on 03-24-2024 Lymphocytes/100 WBC (Bld) 16.4 % Low 19-41 [facility] MCV (mean corpuscular volume ) determinationOrdered By: Len Haile on 03-24-2024 MCV (RBC) [Entitic vol] 86.9 fL 81-99 [facility] Mean corpuscular hemoglobin (MCH) determinationOrdered By: Len Haile on 03-24-2024 MCH (RBC) [Entitic mass] 29.9 pg 27.0-32.0 [facility] Mean corpuscular hemoglobin concentration (MCHC) determinationOrdered By: Len Haile on 03-24-2024 MCHC (RBC) [Mass/Vol] 34.4 g/dL 32-36 [facility] Mean platelet volume determi nationOrdered By: Len Haile on 03-24-2024 Platelet mean volume (Bld) [Entitic vol] 9.5 fL 6.2-12.0 [facility] Monocyte percentageOrdered B y: Len Haile on 03-24-2024 Monocytes/100 WBC (Bld) 4.7 % 0-10 [facility] Neutrophil percentageOrdered By: Len Haile on 03-24-2024 Neutrophils/100 WBC (Bld) 75.8 % High 47-70 [facility] Nucleated red blood cell per centageOrdered By: Len Haile on 03-24-2024 Nucleated RBC/100 WBC (Bld) [Ratio] 0 % 0-5 [facility] Platelet countOrdered By: Paul Haile on 03-24-2024 Platelets (Bld) [#/Vol] 309 10*3/uL 150-450 [facility] Potassium measurementOrdered By: Len Haile on 03-24-2024 Potassium [Moles/Vol] 3.2 mmol/L Low 3.5-5.1 [facility] RBC Auto (Bld) [#/Vol]Ordere d By: Len Haile on 03-24-2024 RBC (Bld) [#/Vol] 4.51 10*6/uL 4.2-5.[address] [facility] Serum anion gap measurementO rdered By: Len Haile on 03-24-2024 Anion gap [Moles/Vol] 8 mmol/L 5-15 [facility] Serum globulin measurementOr dered By: Len Haile on 03-24-2024 Globulin (S) [Mass/Vol] 3.4 g/dL 2.2-4.2 [facility] Serum or plasma alanine bobo otransferase (ALT) measurementOrdered By: Len Haile on 03-24-2024 ALT [Catalytic activity/Vol] 21 U/L 13-56 [facility] Serum or plasma albumin noa urement (mass/volume)Ordered By: Len Haile on 03-24-2024 Albumin [Mass/Vol] 3.4 g/dL 3.2-5.0 [facility] Serum or plasma alkaline nancy sphatase measurementOrdered By: Len Haile on 03-24-2024 ALP [Catalytic activity/Vol] 59 U/L 45-117 [facility] Serum or plasma calcium noa urement (mass/volume)Ordered By: Len Haile on 03-24-2024 Calcium [Mass/Vol] 9.2 mg/dL 8.5-10.1 [facility] Serum or plasma creatinine m easurement (mass/volume)Ordered By: Len Haile on 03-24-2024 Creatinine [Mass/Vol] 0.55 mg/dL 0.55-1.02 [facility] Comment on above: The validity of the calculated GFR & GFRAA in patients over 70 years has not been determined. Clinical correlation is essential. Serum or plasma urea nitroge n measurement (mass/volume)Ordered By: Len Haile on 03-24-2024 Urea nitrogen [Mass/Vol] 4 mg/dL Low 7-18 [facility] Sodium levelOrdered By: Carlos Eduardo Haile on 03-24-2024 Sodium [Moles/Vol] 139 mmol/L 136-145 [facility] Total proteinOrdered By: Madeline Haile on 03-24-2024 Protein [Mass/Vol] 6.8 g/dL 6.4-8.2 [facility] Urinalysis, Completeon 03-24 BACTERIA Normal None Seen [facility] Comment on above: Order Comment: CLEAN CATCH Result Comment: Canc elled via OM: Pt refuses the test Performed By: #### L 501.4021 #### [facility] [address] [place], [address] BILIRUBIN URINE Normal Negative [facility] Comment on above: Order Comment: CLEAN CATCH Result Comment: Canc elled via OM: Pt refuses the test Performed By: #### L 501.4021 #### [facility] [address] [place], [address] Clarity (U) Normal Clear [facility] Comment on above: Order Comment: CLEAN CATCH Result Comment: Canc elled via OM: Pt refuses the test Performed By: #### L 501.4021 #### [facility] [address] [place], [address] Color (U) Normal Yellow [facility] Comment on above: Order Comment: CLEAN CATCH Result Comment: Canc elled via OM: Pt refuses the test Performed By: #### L 501.4021 #### [facility] [address] [place], [address] EPI,SQUAMOUS Normal 5-10 [facility] Comment on above: Order Comment: CLEAN CATCH Result Comment: Canc elled via OM: Pt refuses the test Performed By: #### L 501.4021 #### [facility] [address] [place], [address] GLUCOSE, UR Normal Normal [facility] Comment on above: Order Comment: CLEAN CATCH Result Comment: Canc elled via OM: Pt refuses the test Performed By: #### L 501.4021 #### [facility] [address] [place], [address] KETONE UR Normal Negative [facility] Comment on above: Order Comment: CLEAN CATCH Result Comment: Canc elled via OM: Pt refuses the test Performed By: #### L 501.4021 #### [facility] [address] [place], [address] LEUK ESTERASE Normal Negative [facility] Comment on above: Order Comment: CLEAN CATCH Result Comment: Canc elled via OM: Pt refuses the test Performed By: #### L 501.4021 #### [facility] [address] [place], [address] Mucus Ql (Urine sed) Normal [facility] Comment on above: Order Comment: CLEAN CATCH Result Comment: Canc elled via OM: Pt refuses the test Performed By: #### L 501.4021 #### [facility] [address] [place], [address] Nitrite Ql (U) Normal Negative [facility] Comment on above: Order Comment: CLEAN CATCH Result Comment: Canc elled via OM: Pt refuses the test Performed By: #### L 501.4021 #### [facility] [address] [place], [address] OCCULT BLOOD-UR Normal Negative [facility] Comment on above: Order Comment: CLEAN CATCH Result Comment: Canc elled via OM: Pt refuses the test Performed By: #### L 501.4021 #### [facility] [address] [place], [address] pH UR Normal 5.0 - 8.0 [facility] Comment on above: Order Comment: CLEAN CATCH Result Comment: Canc elled via OM: Pt refuses the test Performed By: #### L 501.4021 #### [facility] [address] [place], [address] PROT DIPSTX Normal Negative [facility] Comment on above: Order Comment: CLEAN CATCH Result Comment: Canc elled via OM: Pt refuses the test Performed By: #### L 501.4021 #### [facility] [address] [place], [address] RBC Normal 0-5 [facility] Comment on above: Order Comment: CLEAN CATCH Result Comment: Canc elled via OM: Pt refuses the test Performed By: #### L 501.4021 #### [facility] [address] [place], [address] SP.GR. DIPSTX Normal 1.002-1.030 [facility] Comment on above: Order Comment: CLEAN CATCH Result Comment: Canc elled via OM: Pt refuses the test Performed By: #### L 501.4021 #### [facility] [address] [place], [address] UR Preservative Normal [facility] Comment on above: Order Comment: CLEAN CATCH Result Comment: Canc elled via OM: Pt refuses the test Performed By: #### L 501.4021 #### [facility] [address] [place], [address] UROBILI Normal Normal [facility] Comment on above: Order Comment: CLEAN CATCH Result Comment: Canc elled via OM: Pt refuses the test Performed By: #### L 501.4021 #### [facility] [address] [place], [address] WBC Normal 0-5 [facility] Comment on above: Order Comment: CLEAN CATCH Result Comment: Canc elled via OM: Pt refuses the test Performed By: #### L 501.4021 #### [facility] [address] [place], [address] White blood cell (WBC) count Ordered By: Len Haile on 03-24-2024 WBC (Bld) [#/Vol] 15.2 10*3/uL High 4.4-11.[address] [facility] CNOVon 03-18-2024 CNOV Office Visit (UCWSTR) STEWART ZUNIGA ([id number]) 4 F Date Time Provider Department 03/18/24 1:30 PM GLENDY CARDONA [facility] During your visit today, we recorded the following information about you: Temperature Pulse Respiration Blood pressure 98.3 degrees 84/minute 18/minute 121/83 Weight 63.5 kg Glendy Cardona 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 Subjective Stewart Zuniga is a 23 year [...] [S89.91XA] Order(s):XR KNEE LIMITED 2V AP/LAT RIGHT [7057760] Order #: [id number] FUTURE CONSULT TO ORTHOPAEDICS [9000] Order #: [id number]: 1 FUTURE Prescriptions as of 03/18/2024 - [...] [O26.899*03/18/2024 Level of Service: OFFICE/OUTPATIENT ESTABLISHED MOD [facility] 30 MIN [50508] Encounter Status:Closed by GLENDY CARDONA on 03/18/24 Normal [facility] XR KNEE 2V AP/LAT RTon 03-18 [...] are maintained. IMPRESSION: No acute osseous abnormality. Glove Operator: KENYA Transcribe Date/Time: Mar 18 2024 2:03P Dictated by : NAJMA MCDONOUGH DO This examination was interpreted and the report reviewed and electronically signed by: NAJMA MCDONOUGH DO on Mar 18 2024 2:04PM EST [id number] Normal [facility] XR Knee - right AP and Later essence 03-18-2024 IMPRESSION: No acute osseous abnormality. Glove Operator: KENYA Transcribe Date/Time: Mar 18 2024 2:03P [...] spaces are maintained. DIVISION OF RADIOLOGY Provider, [facility] - 03/18/2024 * * *Final Report* * [...] maintained. IMPRESSION IMPRESSION: No acute osseous abnormality. Glove Operator: KENYA Transcribe Date/Time: Mar 18 2024 2:03P Dictated by : NAJMA MCDONOUGH DO This examination was interpreted and the report reviewed and electronically signed by: NAJMA MCDONOUGH DO on Mar 18 2024 2:04PM EST [facility] Radiology Study observation (narrative) Adriana [facility] XR Knee - right AP and Later alOrdered By: Ccf Provider on 03-18-2024 [facility] TYPE + SCREEN PRENATALon ABO O Normal [facility] Comment on above: Order Comment: Speci men Type: BLOOD SPECIMENOrdering Facility: [facility] Address: [address] [place] [address] Performed By: #### T SPN ####CC MAIN BLOOD BANKCLIA [id number] [place] [address] [place] Rh Nom (Bld) Negative Normal [facility] Comment on above: Order Comment: Speci men Type: BLOOD SPECIMENOrdering Facility: [facility] Address: [address] [place] [address] Performed By: #### T SPN ####CC MAIN BLOOD BANKCLIA [id number] [place] [address] [place] TYPE AND SCREEN EXPIRATION 03/20/2024 23:59 Normal [facility] Comment on above: Order Comment: Speci men Type: BLOOD SPECIMENOrdering Facility: [facility] Address: [address] [place] [address] Performed By: #### T SPN ####[facility] MAIN BLOOD BANKCLIA [id number] [place] [address] [place] CBC W Auto Differential pane l (Bld)on 02-18-2024 Basophils (Bld) [#/Vol] 0.03 10*3/uL Normal <0.11 [facility] Comment on above: Order Comment: Speci men Type: BLOOD SPECIMENOrdering Facility: [facility] Address: [address] [place] [address] Performed By: #### 5 7021-8 ####[facility] [place] [facility] [id number] [place] [address] [place] Basophils/100 WBC (Bld) 0.3 % Normal C [facility] Comment on above: Order Comment: Speci men Type: BLOOD SPECIMENOrdering Facility: [facility] Address: [address] [place] [address] Performed By: #### 5 7021-8 ####[facility] ROBERTOWNCLIA [id number] [place] [address] [place] Differential cell count method Nom (Bld) Auto Normal [facility] Comment on above: Order Comment: Speci men Type: BLOOD SPECIMENOrdering Facility: [facility] Address: [address] [place] [address] Performed By: #### 5 7021-8 ####[facility] MILLVESUVIUSNCLIA [id number] [place] [address] [place] Eosinophils (Bld) [#/Vol] 0.45 10*3/uL Normal <0.46 [facility] Comment on above: Order Comment: Speci men Type: BLOOD SPECIMENOrdering Facility: [facility] Address: [address] [place] [address] Performed By: #### 5 7021-8 ####[facility] ERNCLIA [id number] [place] [address] [place] Eosinophils/100 WBC (Bld) 4.1 % Normal [facility] Comment on above: Order Comment: Speci men Type: BLOOD SPECIMENOrdering Facility: [facility] Address: [address] [place] [address] Performed By: #### 5 7021-8 ####[facility] GORDAWNCLIA [id number] [place] [address] [place] Erythrocyte distribution width (RBC) [Ratio] 12.9 % Normal 11.5-15.0 [facility] Comment on above: Order Comment: Speci men Type: BLOOD SPECIMENOrdering Facility: [facility] Address: [address] [place] [address] Performed By: #### 5 7021-8 ####[facility]VESUVIUSNCST[facility] [id number] [place] [address] [place] Hematocrit (Bld) [Volume fraction] 41.2 % Normal 36.0-46.0 [facility] Comment on above: Order Comment: Speci men Type: BLOOD SPECIMENOrdering Facility: [facility] Address: [address] [place] [address] Performed By: #### 5 7021-8 ####[facility] [id number] [place] [address] [place] Hemoglobin (Bld) [Mass/Vol] 14.4 g/dL Normal 11.5-15.5 [facility] Comment on above: Order Comment: Speci men Type: BLOOD SPECIMENOrdering Facility: [facility] Address: [address] [place] [address] Performed By: #### 5 7021-8 ####[facility] [id number] [place] [address] [place] Immature granulocytes (Bld) [#/Vol] 0.03 10*3/uL Normal <0.10 [facility] Comment on above: Order Comment: Speci men Type: BLOOD SPECIMENOrdering Facility: [facility] Address: [address] [place] [address] Performed By: #### 5 7021-8 ####[facility] [id number] [place] [address] [place] Immature granulocytes/100 WBC (Bld) 0.3 % Normal [facility] Comment on above: Order Comment: Speci men Type: BLOOD SPECIMENOrdering Facility: [facility] Address: [address] [place] [address] Performed By: #### 5 7021-8 ####[facility] ERNCLI [id number] [place] [address] [place] Lymphocytes (Bld) [#/Vol] 2.91 10*3/uL Normal 1.00-4.00 [facility] Comment on above: Order Comment: Speci men Type: BLOOD SPECIMENOrdering Facility: [facility] Address: [address] [place] [address] Performed By: #### 5 7021-8 ####[facility] [id number] [place] [address] [place] Lymphocytes/100 WBC (Bld) 26.6 % Normal [facility] Comment on above: Order Comment: Speci men Type: BLOOD SPECIMENOrdering Facility: [facility] Address: [address] [place] [address] Performed By: #### 5 7021-8 ####[facility] [id number] [place] [address] [place] MCH (RBC) [Entitic mass] 30.0 pg Normal 26.0-34.0 [facility] Comment on above: Order Comment: Speci men Type: BLOOD SPECIMENOrdering Facility: [facility] Address: [address] [place] [address] Performed By: #### 5 7021-8 ####[facility] [id number] [place] [address] [place] MCHC (RBC) [Mass/Vol] 35.0 g/dL Normal 30.5-36.0 [facility] Comment on above: Order Comment: Speci men Type: BLOOD SPECIMENOrdering Facility: [facility] Address: [address] [place] [address] Performed By: #### 5 7021-8 ####[facility] [id number] [address] [place] MCV (RBC) [Entitic vol] 85.8 fL Normal 80.0-100.0 C [facility] Comment on above: Order Comment: Speci men Type: BLOOD SPECIMENOrdering Facility: [facility] Address: [address] [place] [address] Performed By: #### 5 7021-8 ####[facility] MILLTOWNCLIA [id number] [place] [address] [place] Monocytes (Bld) [#/Vol] 0.67 10*3/uL Normal <0.87 [facility] [facility] Comment on above: Order Comment: Speci men Type: BLOOD SPECIMENOrdering Facility: [facility] Address: [address] [place] [address] Performed By: #### 5 7021-8 ####[facility] MILLWNCLIA [id number] [place] [address] [place] Monocytes/100 WBC (Bld) 6.1 % Normal [facility] Comment on above: Order Comment: Speci men Type: BLOOD SPECIMENOrdering Facility: [facility] Address: [address] [place] [address] Performed By: #### 5 7021-8 ####[facility] TRACIWNCLIA [id number] [place] [address] [place] Neutrophils (Bld) [#/Vol] 6.83 10*3/uL Normal 1.45-7.50 [facility] Comment on above: Order Comment: Speci men Type: BLOOD SPECIMENOrdering Facility: [facility] Address: [address] [place] [address] Performed By: #### 5 7021-8 ####[facility] MILLTOWNCLIA [id number] [place] [address] [place] Neutrophils/100 WBC (Bld) 62.6 % Normal [facility] Comment on above: Order Comment: Speci men Type: BLOOD SPECIMENOrdering Facility: [facility] Address: [address] [place] [address] Performed By: #### 5 7021-8 ####[facility] [id number] [place] [address] [place] Nucleated RBC (Bld) [#/Vol] 10*3/uL Normal <0.01 [facility] Comment on above: Order Comment: Speci men Type: BLOOD SPECIMENOrdering Facility: [facility] Address: [address] [place] [address] Performed By: #### 5 7021-8 ####[facility] [id number] [place] [address] [place] Nucleated RBC/100 WBC (Bld) [Ratio] 0.0 /100 WBC Normal [facility] Comment on above: Order Comment: Speci men Type: BLOOD SPECIMENOrdering Facility: [facility] Address: [address] [place] [address] Performed By: #### 5 7021-8 ####[facility] [id number] [place] [address] [place] Platelet mean volume (Bld) [Entitic vol] 9.7 fL Normal 9.0-12.7 [facility] Comment on above: Order Comment: Speci men Type: BLOOD SPECIMENOrdering Facility: [facility] Address: [address] [place] [address] Performed By: #### 5 7021-8 ####[facility] CENTERFABI [id number] [place] [address] [place] Platelets (Bld) [#/Vol] 320 10*3/uL Normal 150-400 [facility] Comment on above: Order Comment: Speci men Type: BLOOD SPECIMENOrdering Facility: [facility] Address: [address] [place] [address] Performed By: #### 5 7021-8 ####[facility] CENTERLIA [id number] [place] [address] [place] RBC (Bld) [#/Vol] 4.80 10*6/uL Normal 3.90-5.20 [facility] Comment on above: Order Comment: Speci men Type: BLOOD SPECIMENOrdering Facility: [facility] Address: [address] [place], [place] [address] Performed By: #### 5 7021-8 ####[facility] GORDAWNCLIA [id number] [place] [address] [facility] OF [place] WBC (Bld) [#/Vol] 10.92 10*3/uL Normal 3.70-11.00 [facility] Comment on above: Order Comment: Speci men Type: BLOOD SPECIMENOrdering Facility: [facility] Address: [address] [place] [address] Performed By: #### 5 7021-8 ####[facility] ERNCLIA [id number] [place] [address] [place] nuchal translucency me asured by USon 02-18-2024 Indication First trimester anatomic survey Impression REMOTE READ The patient is referred for a first trimester anatomy scan including nuchal translucency measurement as clinically indicated. - Single, live, intrauterine . - Joanna rump length measurement is consistent with the [...] view: visualized 4-chamber view with color: visualized 2-jlxyhd-tapncrq view: normal Abdominal cord insertion: normal Stomach: [...] Read By: Marlene Prakash M.D. MATERNAL MEDICINE [facility] Radiology Study observation (narrative) [facility] HBV surface Ag Ser Qlon 02-02 HBV surface Ag Ql (S) Negative Normal Negative [facility] Comment on above: Order Comment: Speci men Type: BLOOD SPECIMENOrdering Facility: [facility] Address: [address] [place] [address] Performed By: #### 5 195-3, 09627-9, 73309-5 ####[facility] LABCLIA [id number] [place] [address] [place] HCV Ab Ser Qlon 02-18-2024 HCV Ab Ql (S) Negative Normal Negative [facility] Comment on above: Order Comment: Speci men Type: BLOOD SPECIMENOrdering Facility: [facility] Address: [address] [place], [place] [address] Result Comment: The result suggests no evidence of active infection with Hepatitis C virus. Should recent infection be suspected, repeat testing may be considered 4-6 weeks after this draw. Performed By: #### 1 6128-1 ####[facility] LABCLIA [id number] [place] [address] [place] HIV 1+2 Ab IA Qlon 4 HIV 1 and 2 Ab IA.rapid Nom (S/P/Bld) Normal [facility] Comment on above: Order Comment: Speci men Type: BLOOD SPECIMENOrdering Facility: [facility] Address: [address] [place] [address] Result Comment: Test not indicated. Performed By: #### 5 195-3, 32833-0, 17979-7 ####[facility] LABIA [id number] [place] [address] [place] HIV 1+2 Ab+HIV1 p24 Ag IA Ql Non-Reactive Normal Nonreactive [facility] Comment on above: Order Comment: Speci men Type: BLOOD SPECIMENOrdering Facility: [facility] Address: [address] [place] [address] Performed By: #### 5 195-3, 39345-6, 09367-5 ####[facility]ENTERIA [id number] [place] [address] [place] HIV immunoassay testing algorithm interpretation (S/P/Bld) [Interp] Normal [facility] Comment on above: Order Comment: Speci men Type: BLOOD SPECIMENOrdering Facility: [facility] Address: [address] [place] [address] Result Comment: No e vidence of HIV-1 or HIV-2 infection. Should recent infection be suspected, repeat testing may be considered 2-3 weeks after this draw. [place] Rev. Code 3701.243(E): This information has been [...] or diagnoses. Performed By: #### 5 195-3, 48610-9, 18404-1 ####[facility] LABCLIA [id number] [place] HbA1c (Bld)on 02-18-2024 Average glucose Estimated from glycated hemoglobin (Bld) [Mass/Vol] 80 mg/dL Normal [facility] Comment on above: Order Comment: Speci men Type: BLOOD SPECIMENOrdering Facility: [facility] Address: [address] [place] [address] Result Comment: eAG: (Estimated average glucose) is a calculated value from HgbA1c and is insurance claims representative of the average blood glucose level in the last 2-3 month period. Performed By: #### 5 5454-3 ####[facility] LABIA [id number] [address] STATES OF [facility] HbA1c (Bld) [Mass fraction] 4.4 % Normal 4.3-5.6 [facility] Comment on above: Order Comment: Speci men Type: BLOOD SPECIMENOrdering Facility: [facility] Address: [address] [place] [address] Result Comment: Amer ican Diabetes Association guidelines indicate that patients with HgbA1c in the range 5.7-6.4% are at increased risk for development of diabetes, and intervention by lifestyle modification may be beneficial. HgbA1c greater or equal to 6.5% is considered diagnostic of diabetes. Performed By: #### 5 5454-3 ####[facility] CENTERIA [id number] [place] [address] [place] [id number] PLUSon 02-18-2024 Cell-free DNA./Cell-free DNA.total Dosage of chromosome-specific cfDNA (cfDNA) [Molar fraction] 20% Normal [facility] Comment on above: Order Comment: Speci men Type: BLOOD SPECIMENOrdering Facility: [facility] Address: [address] [place] [address] Performed By: #### M AT21 ####[facility] LABCLIA [id number] [place] [address] Chr 13+18+21+X+Y aneuploidy Dosage of chromosome-specific cfDNA Ql (cfDNA) Negative Normal [facility] Comment on above: Order Comment: Speci men Type: BLOOD SPECIMENOrdering Facility: [facility] Address: [address] [place] [address] Performed By: #### M AT21 ####[facility] LABCLIA [id number] [place] [address] Chr 21 trisomy Dosage of chromosome-specific cfDNA Ql (cfDNA) Negative Normal [facility] Comment on above: Order Comment: Speci men Type: BLOOD SPECIMENOrdering Facility: [facility] Address: [address] [place] [address] Performed By: #### M AT21 ####[facility] LABCLIA [id number] [place] [address] Chr X and Y aneuploidy risk Sequencing Ql (cfDNA) [Interp] Not detected Normal [facility] Comment on above: Order Comment: Speci men Type: BLOOD SPECIMENOrdering Facility: [facility] Address: [address] [place] [address] Result Comment: Not Detected Not Detected Performed By: #### M AT21 ####[facility] LABCLIA [id number] [place] [address] Citation Jalen (Reference lab test) Comment Normal [facility] Comment on above: Order Comment: Speci men Type: BLOOD SPECIMENOrdering Facility: [facility] Address: [address] [place] [address] Result Comment: 1. P anita SAEED, et al. Gabrielle Med. 2012;14(3):296-305. 2. Castillo RUFFIN et al. Prenat Diag. 2013;33(6):591-597. 3. Jono C, et al. Clin Chem. 2015 Apr;61(4):608-616. 4. Kimmy SAEED et al. Gabrielle Med. 2011;13(11):913-920. 5. ACOG/SMFM Practice Bulletin No. 226, Dec 2019. Performed By: #### M AT21 ####[facility] LABCLIA [id number] [place] [address] Gestational age Estimated from conception date Sánchez Normal [facility] Comment on above: Order Comment: Speci men Type: BLOOD SPECIMENOrdering Facility: [facility] Address: [address] [place] [address] Performed By: #### M AT21 ####[facility] LABCLIA [id number] [place] [address] GESTATIONALAGE AGE > OR = 9W Yes Normal [facility] Comment on above: Order Comment: Speci men Type: BLOOD SPECIMENOrdering Facility: [facility] Address: [address] [place] [address] Performed By: #### M AT21 ####[facility] LABCLIA [id number] [place] [address] Laboratory comment Jalen (Report) Comment Normal [facility] Comment on above: Order Comment: Speci men Type: BLOOD SPECIMENOrdering Facility: [facility] Address: [address] [place] [address] Result Comment: The MaterniT(R) 21 PLUS laboratory-developed test (LDT) analyzes circulating cell-free DNA from a maternal blood sample. This test is used for screening purposes and not diagnostic. Clinical correlation is recommended. Validation data on twin pregnancies is limited and the ability of this test to detect aneuploidy in higher multiple gestations has not yet been validated. Performed By: #### M AT21 ####[facility] LABCLIA [id number] [place] [address] director [employer] retail name Nom (Provider) Comment Normal [facility] Comment on above: Order Comment: Speci men Type: BLOOD SPECIMENOrdering Facility: [facility] Address: [address] [place] [address] Result Comment: This specimen showed an expected representation of chromosome 21, 18 and 13 material. Clinical correlation is suggested. Comment Scott Euceda MD, PhD, Director, [employer] Performed By: #### M AT21 ####[facility] LABCLIA [id number] [place] [address] LIMITATIONS OF THE TEST Comment Normal C [facility] Comment on above: Order Comment: Speci men Type: BLOOD SPECIMENOrdering Facility: [facility] Address: [address] [place] [address] Result Comment: Abelardo robert the results of [...] and Fragmin(R)). Performed By: #### M AT21 ####[facility] LABCLIA [id number] [place] [address] Monosomy X risk Dosage of chromosome-specific cfDNA Ql (Plasma cell-free+WBC DNA) [Interp] Not detected Normal [facility] Comment on above: Order Comment: Speci men Type: BLOOD SPECIMENOrdering Facility: [facility] Address: [address] [place] [address] Performed By: #### M AT21 ####[facility] LABCLIA [id number] [place] [address] NEGATIVE PREDICTIVE VALUE Note Normal [facility] Comment on above: Order Comment: Speci men Type: BLOOD SPECIMENOrdering Facility: [facility] Address: [address] [place] [address] Result Comment: The Negative Predictive Value (NPV) for trisomy 21, 18, and 13 is greater than 99%. The NPV for SCA and ESS cannot be calculated as SCA and ESS are only reported when an abnormality is detected. Performed By: #### M AT21 ####[facility] LABCLIA [id number] [place] [address] NOTE Comment Normal [facility] Comment on above: Order Comment: Speci men Type: BLOOD SPECIMENOrdering Facility: [facility] Address: [address] [place] [address] Result Comment: See Notes [employer]. is a subsidiary of [employer], using the brand [employer]. This test was developed and its performance characteristics determined by [employer]. It has not been cleared or approved by the Food and Drug Administration. This laboratory is certified under the Clinical Laboratory Improvement Amendments (CLIA) as qualified to perform high complexity clinical laboratory testing and accredited by the College of [place] (CAP). If there is future clinical need for adding MaterniT GENOME testing, this specimen will be available until term. [facility] samples will not be retained beyond 60 days. [facility] patients will have to send a new sample for re-sequencing ([facility] Test Code: [id number]). Performed By: #### M AT21 ####[facility] LABCLIA [id number] [place] [address] PERFORMANCE CHARACTERISTICS Note Normal [facility] Comment on above: Order Comment: Hilda barry Type: BLOOD SPECIMENOrdering Facility: [facility] Address: [address] [place] [address] Result Comment: ! Sex ! Accuracy: 99.4% [...] ! ! ! * As reported in [facility] database nstd37 [https://www.ncbi.nlm.nih.gov/dbvar/studies/nstd37/ ] # Estimated Sensitivity. Sensitivity estimated across the observed size distribution of each syndrome [per [facility] database nstd37] and across the range of fractions observed in routine clinical NIPT. Actual sensitivity can also be influenced by other factors such as the size of the event, total sequence counts, amplification bias, or sequence bias. ## Sánchez gestation only. Performed By: #### M AT21 ####WandoujiaIA [id number] [place] [address] POSITIVE PREDICTIVE VALUE N/A Normal [facility] Comment on above: Order Comment: Hilda barry Type: BLOOD SPECIMENOrdering Facility: [facility] Address: [address] [place] [address] Performed By: #### M AT21 ####[employer] LABCLIA [id number] [place] [address] Reference Lab Test Method Comment Normal [facility] Comment on above: Order Comment: Hilda barry Type: BLOOD SPECIMENOrdering Facility: [facility] Address: [address] [place] [address] Result Comment: See Notes Circulating cell-free DNA [...] and 22. Performed By: #### M AT21 ####[employer] LABHealth Revenue Assurance HoldingsIA [id number] [place] [address] Sex Dosage of chromosome-specific cfDNA Nom (cfDNA) Comment Normal [facility] Comment on above: Order Comment: Speci men Type: BLOOD SPECIMENOrdering Facility: [facility] Address: [address] [place] [address] Result Comment: Cons istent with Male Performed By: #### M AT21 ####[employer] LABCLIA [id number] [place] [address] Test performance information Jalen (Unsp spec) Comment Normal [facility] Comment on above: Order Comment: Speci men Type: BLOOD SPECIMENOrdering Facility: [facility] Address: [address] [place] [address] Result Comment: The performance characteristics of the MaterniT(R) 21 PLUS laboratory-developed test (LDT) have been determined in a clinical validation study with women at increased risk for chromosomal aneuploidy.[1-4] Performed By: #### M AT21 ####[facility] LABCLIA [id number] [place] [address] Trisomy 13 risk Dosage of chromosome-specific cfDNA Ql (cfDNA) [Interp] Negative Normal [facility] Comment on above: Order Comment: Speci men Type: BLOOD SPECIMENOrdering Facility: [facility] Address: [address] [place] [address] Performed By: #### M AT21 ####[facility] LABCLIA [id number] [place] [address] Trisomy 18 risk Dosage of chromosome-specific cfDNA Ql (Plasma cell-free+WBC DNA) [Interp] Negative Normal [facility] Comment on above: Order Comment: Speci men Type: BLOOD SPECIMENOrdering Facility: [facility] Address: [address] [place] [address] Performed By: #### M AT21 ####[facility] LABCLIA [id number] [place] [address] RUBELLA IGG ANTIBODYon 02-17 RUBELLA IGG AB, QUAL Positive Normal Positive [facility] Comment on above: Order Comment: Speci men Type: BLOOD SPECIMENOrdering Facility: [facility] Address: [address] [place] [address] Result Comment: The result suggests recent or past exposure to Rubella virus or history of Rubella vaccination. Positive result may also be seen due to presence of passively-transferred antibodies. Please correlate with patient's history. Performed By: #### R UBIGG ####[facility] LABCLIA [id number] [place] [address] [place] Reagin and Treponema pallidu m IgG and IgM [Interp]on 02-18-2024 T. pallidum IgG+IgM IA Ql (S) Non-Reactive Normal Nonreactive [facility] Comment on above: Order Comment: Speci men Type: BLOOD SPECIMENOrdering Facility: [facility] Address: [address] [place] [address] Performed By: #### 5 195-3, 81712-9, 16306-5 ####[facility] LABCLIA [id number] [place] [address] [place] Reagin+T pallidum IgG+IgM Se rPl-Impon 02-18-2024 Reagin and Treponema pallidum IgG and IgM [Interp] Cannot exclude recent Treponemal infection if specimen collected within 7-10 days after appearance of suspect lesions or 2-3 weeks after an exposure. Clinical correlation is required. Normal [facility] Comment on above: Order Comment: Speci men Type: BLOOD SPECIMENOrdering Facility: [facility] Address: [address] [place] [address] Performed By: #### 5 195-3, 01281-4, 99412-3 ####[facility] LABIA [id number] [place] [address] [place] Bacteria Ur Culton 4 Bacteria identified Cx Nom (U) ORGANISM ID: 1 <10,000 CFU/ml Normal urogenital rzea Normal [facility] Comment on above: Performed By: #### 6 30-4 ####[facility] LABCLIA [id number] [place] [address] [place] C. trachomatis+N. gonorrhoea e DNA RICHARD+probe Ql (Unsp spec)on 01-14-2024 C. trachomatis rRNA RICHARD+probe Ql (Unsp spec) Negative Normal Negative for Chlamydia trachomatis by amplificaton [facility] Comment on above: Order Comment: Speci men Type: SWABOrdering Facility: [facility] Address: [address] [place] [address] Performed By: #### 3 6902-5 ####[facility] LABIA [id number] [place] [address] [place] N. gonorrhoeae rRNA RICHRAD+probe Ql (Unsp spec) Negative Normal Negative for Neisseria gonorrhoeae by amplification [facility] Comment on above: Order Comment: Speci men Type: SWABOrdering Facility: [facility] Address: [address] [place] [address] Performed By: #### 3 6902-5 ####[facility] LABIA [id number] [place] [address] [place] PAP TESTon 01-14-2024 ADEQUACY Normal [facility] Comment on above: Order Comment: Speci men Type: FLUID SPECIMENOrdering Facility: [facility] Address: [address] [place] [address] Result Comment: Sati sfactory for interpretation. No endocervical component Performed By: #### L [id number] ####[facility] LABCLIA [id number] [place] [address] [place] CASE REPORT Normal [facility] Comment on above: Order Comment: Speci men Type: FLUID SPECIMENOrdering Facility: [facility] Address: [address] [place] [address] Result Comment: Gyne cologic Cytology Report Case: [id number] Authorizing Provider: Angie Ocasio APRN.STUDIO SET UP WORKER Collected: 01/14/2024 09:13 AM Ordering Location: OB/Gynecology Received: 01/14/2024 01:06 PM First Screen: Gareth Swanson Tech Specimen: Pap Test, ThinPrep, Cervix Performed By: #### L [id number] ####[facility] LABCLIA [id number] [place] [address] [place] CLINICAL HISTORY, CYTOLOGY, WATER/WASTEWATER ENGINEER Routine Exam Normal [facility] Comment on above: Order Comment: Speci men Type: FLUID SPECIMENOrdering Facility: [facility] Address: [address] [place] [address] Performed By: #### L [id number] ####[facility] LABCLIA [id number] [place] [address] [place] FINAL PERFORMING LAB Normal [facility] Comment on above: Order Comment: Speci men Type: FLUID SPECIMENOrdering Facility: [facility] Address: [address] [place] [address] Result Comment: Tech nical component, applique sewer screening performed at [facility], [address] [place], [place] [address] CLIA# [id number] Diagnostic interpretation performed at [facility], [address] [place], [place] [address] CLIA# [id number] [employer] Buyer: Julien Link M.D. Performed By: #### L [id number] ####[facility] LABCLIA [id number] [id number] [address] [place] INTERPRETATION, CYTOLOGY, WATER/WASTEWATER ENGINEER Normal [facility] Comment on above: Order Comment: Speci men Type: FLUID SPECIMENOrdering Facility: [facility] Address: [address] [place] [address] Result Comment: Nega tive for intraepithelial lesion or malignancy. Performed By: #### L [id number] ####[facility] LABCLIA [id number] [place] [address] [place] LMP 11/23/2023 Normal [facility] Comment on above: Order Comment: Speci men Type: FLUID SPECIMENOrdering Facility: [facility] Address: [address] [place] [address] Performed By: #### L [id number] ####[facility] LABCLIA [id number] [place] [address] [place] PAP DISCLAIMER COMMENT The Pap Smear is a screening test for cervical cancer. False negative results occur with all screening tests, emphasizing the need for rescreening at recommended intervals, and clinical correlation. Normal [facility] Comment on above: Order Comment: Speci men Type: FLUID SPECIMENOrdering Facility: [facility] Address: [address] [place] [address] Performed By: #### L [id number] ####[facility] [id number] [place] [address] [place] PAP UTILIZATION REVIEW COORDINATOR COMMENT This specimen has been analyzed by the ThinPrep Imaging System, an automated imaging and review system, which assists the laboratory in evaluating cells on ThinPrep Pap tests. Following automated imaging, selected villanueva from every slide are reviewed by a applique sewer. Normal [facility] Comment on above: Order Comment: Speci men Type: FLUID SPECIMENOrdering Facility: [facility] Address: [address] [place] [address] Performed By: #### L [id number] ####[facility] [id number] [place] [id number] [place] POC ALCOHOLISM WORKER ULTRASOUNDon 01-14-20 Indication Confirmation of intrauterine . [...] Read By: Angie Ocasio CNP MATERNAL MEDICINE [facility] Radiology Study observation (narrative) Adriana irby [facility] Urgent Care Visit Reporton 1 03-11-2023 Urgent Care Visit Report [facility] [address], [address] [place] [address] OFFICE VISIT Date of Service: 01/10/24 MR#: [id number] Acct: [id number] Name: STEWART ZUNIGA Rep #: [id number] : 2000 Provider: ARDEN Baldwin Age/Sex: 23/F Location[facility] Status: Signed Intake Vital Signs 11/01/23 11:55 01/10/24 08:43 Height 5 ft 1 in BP 126/68 H Blood Pressure Location Rt brachial Position Sitting Respiration 15 Pulse 89 Pulse Source NIBP Temp 98.7 F Temp Source Oral Pulse Oximetry (%) 98 Oxygen Delivery Method room air Intake Visit Reasons: BILAT EAR PAIN/POLLOCK/SINUS COMPLAINT Chief Complaint: ear pain, PND, POLLOCK, grn mucus Philosophy Faculty Required: No Is patient in pain?: Yes [...] info given to provider. [facility] Medical History Physical exam, pre-employment Palpitations Chest [...] Exam Const General: cooperative and healthy appearing [facility] Head: normal to inspection Ears: hearing grossly [...] past year?: No 01/10/24 0907 Date Rick HER Cosigner Signature: Date (if ap (more content not included)... Normal [facility] CNCOon 12-24-2023 CNCO Letter Text Normal [facility] CNOVon 12-24-2023 CNOV Office Visit (CARDMN) STEWART ZUNIGA ([id number]) 4 F Date Time Provider Department 12/24/23 8:30 AM JAY BYRD CARDMN During your visit today, we recorded the following information about you: Pulse Blood pressure Weight Height 99/minute 134/84 62 kg 1.562 m Jay Byrd MD 12/24/2023 9:21 AM Signed [facility] Department of Cardiovascular Medicine SECTION OF CARDIAC PACING and ELECTROPHYSIOLOGY OUTPATIENT VISIT DATE December 24, 2023 OUTPATIENT VISIT TYPE NEW PRIMARY CARE PHYSICIAN: Kayleen Mckay MD [facility] [place] [address] REFERRING PHYSICIAN: Arnoldo Pablo [place] [phone] CHIEF COMPLAINT: Consultation for tachycardias and syncope [...] 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 She has caffeine a few times [...] MEDICINE TESTING: (more content not included)... Normal [facility] ECG COMPLETEon 12-24-2023 ECG COMPLETE Ventricular Rate : 93 BPM Atrial Rate : 93 BPM P-R Interval : 144 ms QRS Duration : 82 ms Q-T Interval : 330 ms QTC Calculation(Bazett) : 410 ms Calculated P [place] : 68 degrees Calculated R [place] : 64 degrees Calculated T [place] : 39 degrees SINUS RHYTHM WITH PREMATURE SUPRAVENTRICULAR COMPLEXES OTHERWISE NORMAL ECG Confirmed by MD VASQUEZ HEBA ([id number]) on 01/07/2024 8:38:02 PM NAME : STEWART ZUNIGA PID : [id number] : 2000 Gender : Female Race : ORD : [id number] Procedure Date : Dec 24 2023 08:04:19 Edit Date : Jan 07 2024 20:38:04 Diagnosis: SINUS RHYTHM WITH PREMATURE SUPRAVENTRICULAR COMPLEXES OTHERWISE NORMAL ECG Confirmed by MD VASQUEZ HEBA ([id number]) on 01/07/2024 8:38:02 PM Test Reason : Location : 314 : J14 J1-4 Overread By : MD VASQUEZ HEBA Edited By : MD VASQUEZ HEBA Referred By : JAY BYRD Acquired by : MINERVA SAHA Normal [facility] ECHOon 12-24-2023 CONCLUSIONS: - Exam indication: [...] [facility] Echocardiography Report: Transthoracic Echo [facility] Date of service: 12/24/2023 10:56:13 AM SPECIAL EDUCATION TEACHER Ordering physician: JAY BYRD Indication: Syncope, Tachycardia, PVC's Technologist: Dominguez Pinto [facility] Interpreting physician: Sylvie Romero MD PATIENT: Name: [...] epicardial fat pad. [facility] Echocardiography Echocardiography Report: Transthoracic Echo [facility] Date of service: 12/24/2023 10:56:13 AM SPECIAL EDUCATION TEACHER Ordering physician: JAY BYRD Indication: Syncope, Tachycardia, PVC's Technologist: Dominguez Pinto [facility] Interpreting physician: Sylvie Romero MD PATIENT: Name: [...] * * Final * * * CC [employer] Image : [id number]. [id number] DynamicsSISUID Normal [facility] 12 Lead EKGon 11-01-2023 12 Lead EKG [facility] Cardiovascular Services [address] [place] [address] 12 Lead EKG 11/01/23 1200 MR#: [id number] Acct: [id number] Name: STEWART ZUNIGA Rep #: [id number] : 2000 From: Rubio Paulino MD Attending Dr: Status: [...] POSSIBLY AGE RELATED Confirmed by Rubio Paulino ([id number]), online editor AGUSTIN MCCLURE ([id number]) on 11/02/2023 8:19:05 AM Referred By: RUTHIE/ROBIN Confirmed By:Rubio Paulino 11/02/23818 Date Rubio Paulino MD CC: Dr. Antoine Dodson MD; Dr. Kayleen Mckay MD Signed Normal [facility] Basic Metabolic Profile (BMP )on 11-01-2023 BUN/CRE 6.8 RATIO Low 10-20 [facility] Comment on above: Order Comment: 1Y Performed By: #### L 501.4021 #### [facility] [address] [place], [address] CA,Total 9.3 mg/dL Normal 8.5-10.1 [facility] Comment on above: Order Comment: 1Y Performed By: #### L 501.4021 #### [facility] [address] [place], [address] Chloride [Moles/Vol] 107 mmol/L Normal 98-107 [facility] Comment on above: Order Comment: 1Y Performed By: #### L 501.4021 #### [facility] [address] [place], [address] CO2 [Moles/Vol] 23.0 mmol/L Normal 21.0-32.0 [facility] Comment on above: Order Comment: 1Y Performed By: #### L 501.4021 #### [facility] [address] [place], [address] Creatinine [Mass/Vol] 0.74 mg/dL Normal 0.55-1.02 [facility] [place] [facility] Comment on above: Order Comment: 1Y Result Comment: The validity of the calculated GFR GFRAA in patients over 70 years has not been determined. Clinical correlation is essential. Performed By: #### L 501.4021 #### [facility] [address] [place], [address] ECRCL 103.66 ml/min Normal [facility] Comment on above: Order Comment: 1Y Performed By: #### L 501.4021 #### [facility] [address] [place], [address] EST GFR - AA 127 mL/min Normal >60 [facility] Comment on above: Order Comment: 1Y Result Comment: Afri can Icelandic GFR Calc Performed By: #### L 501.4021 #### [facility] [address] [place], [address] GAP 7 Normal 5-15 [facility] Comment on above: Order Comment: 1Y Performed By: #### L 501.4021 #### [facility] [address] [place], [address] GFR/1.73 sq M.predicted among non-blacks MDRD (S/P/Bld) [Vol rate/Area] 105 mL/min/{1.73_m2} Normal >60 [facility] Comment on above: Order Comment: 1Y Result Comment: Non- GFR Calc Performed By: #### L 501.4021 #### [facility] [address] [place], [address] Glucose [Mass/Vol] 112 mg/dL High 74-106 [facility] Comment on above: Order Comment: 1Y Result Comment: Fast ing Glucose result from 100 to 125 mg/dL suggests IMPAIRED HOMEOSTASIS per A.D.A. criteria. Performed By: #### L 501.4021 #### [facility] [address] [place], [address] Potassium [Moles/Vol] 3.3 mmol/L Low 3.5-5.1 [facility] [place] [facility] Comment on above: Order Comment: 1Y Performed By: #### L 501.4021 #### [facility] [address] [place], [address] Sodium [Moles/Vol] 137 mmol/L Normal 136-145 [facility] Comment on above: Order Comment: 1Y Performed By: #### L 501.4021 #### [facility] [address] [place], [address] Urea nitrogen [Mass/Vol] 5 mg/dL Low 7-18 [facility] Comment on above: Order Comment: 1Y Performed By: #### L 501.4021 #### [facility] [address] [place], [address] CBC W/Diff, Automatedon 08-2 Absolute Lymph 0.44 X10 3/uL Low 0.83-4.51 [facility] Comment on above: Performed By: #### L 501.4021 #### [facility] [address] [place], [address] Absolute Neut 9.2 X10 3/uL High 2.0-7.7 [facility] Comment on above: Performed By: #### L 501.4021 #### [facility] [address] [place], [address] Basophils/100 WBC (Bld) 0.3 % Normal 0-1 [facility] Comment on above: Performed By: #### L 501.4021 #### [facility] [address] [place], [address] Eosinophils/100 WBC (Bld) 3.5 % Normal 0-5 [facility] Comment on above: Performed By: #### L 501.4021 #### [facility] [address] [place], [address] Erythrocyte distribution width (RBC) [Ratio] 12.2 % Normal 11.6-14.6 [facility] Comment on above: Performed By: #### L 501.4021 #### [facility] [address] [place], [address] Hematocrit (Bld) [Volume fraction] 40.5 % Normal 37-47 [facility] Comment on above: Performed By: #### L 501.4021 #### [facility] [address] [place], [address] Hemoglobin (Bld) [Mass/Vol] 14.1 g/dL Normal 12.0-15.0 [facility] Comment on above: Performed By: #### L 501.4021 #### [facility] [address] [place], [address] IG% 0.200 Normal 0.0-0.9 [facility] Comment on above: Result Comment: IG% - Immature Granulocytes (promyelocytes, myelocytes and metamyelocytes) > 1% indicates that a LEFT SHIFT is Present. Performed By: #### L 501.4021 #### [facility] [address] [place], [address] Lymphocytes/100 WBC (Bld) 4.1 % Low 19-41 [facility] Comment on above: Performed By: #### L 501.4021 #### [facility] [address] [place], [address] MCH (RBC) [Entitic mass] 29.9 pg Normal 27.0-32.0 [facility] Comment on above: Performed By: #### L 501.4021 #### [facility] [address] [place], [address] MCHC (RBC) [Mass/Vol] 34.8 g/dL Normal 32-36 [facility] Comment on above: Performed By: #### L 501.4021 #### [facility] [address] [place], [address] MCV (RBC) [Entitic vol] 86.0 fL Normal 81-99 [facility] Comment on above: Performed By: #### L 501.4021 #### [facility] [address] [place], [address] Monocytes/100 WBC (Bld) 6.3 % Normal 0-10 [facility] Comment on above: Performed By: #### L 501.4021 #### [facility] [address] [place], [address] Neutrophils/100 WBC (Bld) 85.6 % High 47-70 [facility] Comment on above: Performed By: #### L 501.4021 #### [facility] [address] [place], [address] Nucleated RBC (Bld) [#/Vol] 0 10*3/uL Normal 0-5 [facility] Comment on above: Performed By: #### L 501.4021 #### [facility] [address] [place], [address] Platelet mean volume (Bld) [Entitic vol] 9.6 fL Normal 6.2-12.0 [facility] Comment on above: Performed By: #### L 501.4021 #### [facility] [address] [place], [address] Platelets (Bld) [#/Vol] 274 10*3/uL Normal 150-450 [facility] Comment on above: Performed By: #### L 501.4021 #### [facility] [address] [place], [address] RBC (Bld) [#/Vol] 4.71 10*6/uL Normal 4.2-5.[address] [facility] Comment on above: Performed By: #### L 501.4021 #### [facility] [address] [place], [address] RDW SD 38.5 fl Normal 35.1-43.9 [facility] Comment on above: Performed By: #### L 501.4021 #### [facility] [address] [place], [address] WBC (Bld) [#/Vol] 10.7 10*3/uL Normal 4.4-11.[address] [facility] Comment on above: Performed By: #### L 501.4021 #### [facility] [address] [place], [address] Chest 1 View (Portable)on Chest 1 View (Portable) [facility] Imaging Services [address] [place] [address] Chest 1 View (Portable) MR#: [id number] Acct: [id number] Name: STEWART ZUNIGA Rep #: [id number] : 2000 F 23 From: Neville Cardenas MD PCP: Dr. Kayleen Mckay MD Status: [facility] ER Study: Chest 1 View (Portable) Date of Exam: 11/01/23 Exam# [id number] Ordering Dr: Antoine Dodson MD [id number] STUDY: X-RAY CHEST REASON FOR EXAM: Female, [...] Antoine Dodson MD; Dr. Kayleen Mckay MD Glove Operator: Signed Normal [facility] D-Dimer Quantitative (DVT/PE )on 11-01-2023 D-DIMER QUANT < 0.27 Low 0.27-0.49 [facility] Comment on above: Result Comment: NORM AL D-Dimer level (<0.50) indicates no DVT or PE. Performed By: #### L 400.0001 #### [facility] [address] [place], [address] Emergency Department Summary on 11-01-2023 Emergency Department Summary [facility] Medical Records Department [address] [place] [address] Emergency Department Summary 11/01/23 MR#: [id number] Acct: [id number] Name: STEWART ZUNIGA Rep #: [id number] : 2000 23 From: Antoine Dodson MD PCP: Dr. 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 Non-smoker. [facility] Medical History Physical exam, pre-employment [...] of 10. (more content not included)... Normal [facility] L501.4020on 11-01-2023 TROPONIN-I HS 4 pg/mL Normal 3.0-54.0 [facility] Comment on above: Result Comment: Bacilio casarez Note: New Test Units and Gender Specific Reference Ranges. For more information see Policy Stat Procedure [place] High Sensitivity Troponin (TNIH) and attachments. Performed By: #### L 501.4020 #### [facility] [address] [place], [address] Order Comment: CLEAN CATCH Performed By: #### L 400.0001 #### [facility] [address] [place], [place], [address] Lipaseon 11-01-2023 Lipase [Catalytic activity/Vol] 15 U/L Normal 13-75 [facility] Comment on above: Result Comment: Bacilio casarez note: LIPASE revised reference range effective 22. New Lipase methodology. Expected to produce lower values than the previous assay method. NEW Reference Range: 13 - 75 U/L Performed By: #### L 499.0042 #### [facility] [address] [place], [place], [address] Magnesiumon 11-01-2023 Magnesium [Mass/Vol] 1.8 mg/dL Normal 1.6-2.6 [facility] Comment on above: Order Comment: 1Y Performed By: #### L 501.4021 #### [facility] [address] [place], [address] ,Serum,hCG Quali.on 11-01-2023 HCG, SERUM QUAL Negative Normal [facility] Comment on above: Performed By: #### L 499.0042 #### [facility] [address] [place], [place], [address] Urinalysis, Completeon 10-31 BACTERIA 1+ /hpf Normal None Seen [facility] Comment on above: Order Comment: CLEAN CATCH Performed By: #### L 400.0001 #### [facility] [address] [place], [address] EPI,SQUAMOUS 5-10 SEEN Normal 5-10 [facility] Comment on above: Order Comment: CLEAN CATCH Performed By: #### L 400.0001 #### [facility] [address] [place], [address] Mucus Ql (Urine sed) 0 SEEN Normal [facility] Comment on above: Order Comment: CLEAN CATCH Performed By: #### L 400.0001 #### [facility] [address] [place], [address] RBC 0 SEEN Normal 0-5 [facility] Comment on above: Order Comment: CLEAN CATCH Performed By: #### L 400.0001 #### [facility] [address] [place], [address] WBC 0 SEEN Normal 0-5 [facility] Comment on above: Order Comment: CLEAN CATCH Performed By: #### L 400.0001 #### [facility] [address] [place], [address] Urgent Care Visit Reporton 0 10-23-2023 Urgent Care Visit Report [facility] [address], [address] [place], [place] [address] OFFICE VISIT Date of Service: 10/23/23 MR#: [id number] Acct: [id number] Name: STEWART ZUNIGA SCOUT Rep #: [id number] : 2000 Provider: ARDEN Berkowitz Age/Sex: 23/F Location: [facility] Status: Signed Intake Vital Signs 08/10/23 10:41 [...] Reasons: RASH/CONCREN FOR BITE Chief Complaint: rash Philosophy Faculty Required: No Is patient in pain?: No [...] and bendadryl without relief. [facility] Medical History (Updated 10/17/23 @ 16:05 by [...] DPs. Patient states she has used multiple dmhc-[id number]-[id number] topical applications as well as oral Benadryl [...] should symptoms (more content not included)... Normal [facility] Urgent Care Visit Reporton 0 10-17-2023 Urgent Care Visit Report [facility] [address], [address] [place] [address] OFFICE VISIT Date of Service: 10/17/23 MR#: [id number] Acct: [id number] Name: STEWART ZUNIGA Rep #: [id number] : 2000 Provider: ARDEN Berkowitz Age/Sex: 23/F Location: [facility] Status: Signed Intake Vital Signs 08/10/23 10:41 [...] Adverse Reaction (Severe, Verified 08/10/23 11:28) Rash PFSH Medical History (Updated 10/17/23 @ 16:05 by [...] Adan Signature: Date (if applicable) CC: Normal [facility] Progress Noteon 05-02-2023 Office Receptionist Authentication Interface Message Text We had the pleasure of seeing Stewart Zuniga in the [facility] on May 02, 2023. As you know, [...] review of social history Stewart lives in [place], [place]. 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 Physical exam showed: Weight - Scale: [...] complexes and a ventricular rate of 86, [place] interval of 147 msec, QRS duration of [...] counseling, documentation and/or coordination of care. Normal [facility] Progress Noteon 04-25-2023 Office Receptionist Authentication Interface Message Text Patient ID: Stewart Zuniga is a 23 y.o. female. Her [...] highschool graduate. (Going to start working at [employer]. Was working at [employer]). Eating: Stewart eats regular meals including fruits [...] (more content not included)... Invalid Interpretation Code [facility] Absolute lymphocyte countOrd ered By: Thea Luque on 10-22-2022 Lymphocytes Auto (Unsp spec) [#/Vol] 2.68 10*3/uL 0.83-4.51 [facility] Basophil percentageOrdered B y: Thea Ene on 10-22-2022 Basophil percentage 5-10 SEEN /hpf 0-5 [facility] Basophils/100 WBC (Bld) 0.4 % 0-1 [facility] Chloride [Moles/Vol] 109 mmol/L 98-107 [facility] Eosinophils/100 WBC (Bld) 2.0 % 0-5 [facility] Glucose [Mass/Vol] 113 mg/dL 74-106 [facility] Comment on above: Fasting Glucose resu lt from 100 to 125 mg/dL suggests IMPAIRED HOMEOSTASIS per A.D.A. criteria. Lactate [Moles/Vol] 1.1 mmol/L 0.4-2.[address] [facility] Neutrophils (Bld) [#/Vol] 9.4 10*3/uL 2.0-7.7 [facility] Neutrophils/100 WBC (Bld) 70.5 % 47-70 [facility] Potassium [Moles/Vol] 3.3 mmol/L 3.5-5.1 [facility] Sodium [Moles/Vol] 139 mmol/L 136-145 [facility] WBC (Bld) [#/Vol] 13.3 10*3/uL 4.4-11.[address] [facility] Beta hCG serum qualOrdered B y: Thea Ibarraradha on 10-22-2022 Beta HCG ( test) Ql Negative [facility] Bilirubin Test strip Ql (U)O rdered By: Thea Luque on 10-22-2022 Bilirubin Ql (U) 1 mg/dL Negative [facility] Comment on above: COLOR OF URINE MAY A FFECT DIPSTICK RESULTS. Blood erythrocytes count (nu mber/volume)Ordered By: Thea Luque on 10-22-2022 RBC (Bld) [#/Vol] 4.81 10*6/uL 4.2-5.[address] [facility] Blood hemoglobin measurement (mass/volume)Ordered By: Thea Luque on 10-22-2022 Hemoglobin (Bld) [Mass/Vol] 14.1 g/dL 12.0-15.0 [facility] Blood lymphocytes/100 leukoc ytesOrdered By: Thea Luque on 10-22-2022 Lymphocytes/100 WBC (Bld) 20.1 % 19-41 [facility] Blood monocytes/100 leukocyt esOrdered By: Thea Luque on 10-22-2022 Monocytes/100 WBC (Bld) 6.5 % 0-10 [facility] Blood platelet mean volumeOr dered By: Thea Luque on 10-22-2022 Platelet mean volume (Bld) [Entitic vol] 10.7 fL 6.2-12.0 [facility] Determination of erythrocyte mean corpuscular volume (MCV)Ordered By: Thea Luque on 10-22-2022 MCV (RBC) [Entitic vol] 87.1 fL 81-99 [facility] Hematocrit Auto (Bld) [Volum e fraction]Ordered By: Thea Luque on 10-22-2022 Hematocrit (Bld) [Volume fraction] 41.9 % 37-47 [facility] Ketones Test strip Ql (U)Ord ered By: Thea Luque on 10-22-2022 Ketones Ql (U) 150 mg/dl Negative [facility] Comment on above: CRITICAL VALUE *HCRI TICAL VALUE VERIFIED. CALLED TO ORLIN ESTRADA10/22/221856 Nancy Guzman.RESULTS READ BACK BY SAME . Laboratory - Chemistry and C hemistry - challengeOrdered By: Thea Luque on 10-22-2022 CO2 [Moles/Vol] 21.0 mmol/L 21.0-32.0 [facility] Urea nitrogen/Creatinine [Mass ratio] 11.8 mg/mg 10-20 [facility] Laboratory - Hematology and Cell countsOrdered By: Thea Luque on 10-22-2022 Erythrocyte distribution width (RBC) [Entitic vol] 38.5 fL 35.1-43.9 [facility] Erythrocyte distribution width (RBC) [Ratio] 12.1 % 11.6-14.6 [facility] Immature granulocytes/100 WBC (Bld) 0.500 % 0.0-0.9 [facility] Comment on above: IG% - Immature Granu locytes (promyelocytes, myelocytes and metamyelocytes) > 1% indicates that a LEFT SHIFT is Present. MCH (RBC) [Entitic mass] 29.3 pg 27.0-32.0 [facility] Nucleated RBC/100 WBC (Bld) [Ratio] 0 % 0-5 [facility] MCHC Auto (RBC) [Mass/Vol]Or dered By: Thea Ene on 10-22-2022 MCHC (RBC) [Mass/Vol] 33.7 g/dL 32-36 [facility] [place] [facility] Mucus LM Ql (Urine sed)Order ed By: Thea Luque on 10-22-2022 Mucus Ql (Urine sed) 1+ /hpf [facility] Nitrite Test strip Ql (U)Ord ered By: Remus Luque on 10-22-2022 Nitrite Ql (U) Negative Negative [facility] No Panel InformationOrdered By: Thea Luque on 10-22-2022 Estimated Creatinine Clearance Calc 66.39 ml/min [facility] Estimated GFR (MDRD) Amer 88 mL/min >60 [facility] Comment on above: GFR Calc Estimated GFR (MDRD) Non-Af Amer 73 mL/min >60 [facility] Comment on above: Non- GFR Calc Platelets bldOrdered By: Tanya Ene on 10-22-2022 Platelets (Bld) [#/Vol] 418 10*3/uL 150-450 [facility] Protein Test strip Ql (U)Ord ered By: Thea Ene on 10-22-2022 Protein Ql (U) 100 mg/dl Negative [facility] Serum or plasma calcium noa urement (mass/volume)Ordered By: Thea Luque on 10-22-2022 Calcium [Mass/Vol] 9.6 mg/dL 8.5-10.1 [facility] Serum or plasma creatinine m easurement (mass/volume)Ordered By: Remus Luque on 10-22-2022 Creatinine [Mass/Vol] 1.02 mg/dL 0.55-1.02 [facility] [place] [facility] Comment on above: The validity of the calculated GFR & GFRAA in patients over 70 years has not been determined. Clinical correlation is essential. Serum or plasma urea nitroge n measurement (mass/volume)Ordered By: Thea Luque on 10-22-2022 Urea nitrogen [Mass/Vol] 12 mg/dL 7-18 [facility] Squamous epithelial cells de tection in urine sediment by light microscopyOrdered By: Thea Luque on 10-22-2022 Epithelial cells.squamous LM Ql (Urine sed) 0-5 SEEN /hpf 5-10 [facility] Thin prep Papanicolaou smear with manual screeningOrdered By: Remus Luque on 10-22-2022 Thin prep Papanicolaou smear with manual screening 9 5-15 [facility] Urine blood detectionOrdered By: Remus Luque on 10-22-2022 RBC Ql (U) 250 /ul Negative [facility] RBC Ql (U) 10-25 SEEN /hpf 0-5 [facility] Urine clarityOrdered By: Rem us Ene on 10-22-2022 Clarity (U) Cloudy Clear [facility] Urine color determinationOrd ered By: Thea Luque on 10-22-2022 Color (U) Brown Yellow [facility] Urine glucose detectionOrder ed By: Thea Luque on 10-22-2022 Glucose Ql (U) Normal mg/dl Normal [facility] Urine leukocyte esterase det ection by dipstickOrdered By: Thea Luque on 10-22-2022 Leukocyte esterase Test strip Ql (U) 100 /ul Negative [facility] Urine pHOrdered By: Thea Pendleton gur on 10-22-2022 pH (U) 7.0 [pH] 5.0 - 8.0 [facility] Urine sediment bacteria coun t by microscopy (number/high power field)Ordered By: Thea Luque on 10-22-2022 Bacteria LM.HPF (Urine sed) [#/Area] 2 /[HPF] None Seen [facility] Urine specific gravity measu rementOrdered By: Thea Luque on 10-22-2022 Specific gravity (U) [Rel density] 1.015 1.002-1.030 [facility] Urobilinogen Auto test strip Ql (U)Ordered By: Thea Luque on 10-22-2022 Urobilinogen Ql (U) 12 mg/dl Normal [facility] Progress Noteon 07-26-2022 Office Receptionist Authentication Interface Message Text We had the pleasure of seeing Stewart Zuniga in the [facility] on July 26, 2022. As you know, [...] history Stewart lives with her family in [place], [place]. Physical exam showed: Weight - Scale: [...] complexes and a ventricular rate of 108, [place] interval of 172 msec, QRS duration of [...] counseling, documentation and/or coordination of care. Normal [facility] Laboratory - Microbiology an d Antimicrobial susceptibilityon 03-16-2022 SARS-CoV-2 (COVID-19) RNA RICHARD+probe Ql (Unsp spec) Not detected [facility] No Panel Informationon 03-16 Influenza Types A,B Rapid (Clinic) Not detected [facility] Vital Signs Date Time Vital Sign Value Performing Clinician Facility 11-15-2024 12:44-0400 Body temperature 97.5 [degF] No Primary Care Physician [facility] 11-15-2024 12:44-0400 Diastolic blood pressure 61 mm[Hg] No Primary Care Physician [facility] 11-15-2024 12:44-0400 Heart rate 69 /min No Primary Care Physician [facility] 11-15-2024 12:44-0400 Respiratory rate 16 /min No Primary Care Physician [facility] 11-15-2024 12:44-0400 SaO2% (BldA) [Mass fraction] 100 % No Primary Care Physician [facility] 11-15-2024 12:44-0400 Systolic blood pressure 107 mm[Hg] No Primary Care Physician [facility] 11-15-2024 11:35-0400 Body height 154.94 cm No Primary Care Physician [facility] 11-15-2024 11:35-0400 Body mass index (BMI) [Ratio] 26.9 kg/m2 No Primary Care Physician [facility] 11-15-2024 11:35-0400 Body weight 64.6 kg No Primary Care Physician [facility] 11-14-2024 14:15-0400 Body mass index (BMI) [Ratio] 27.02 kg/m2 Georgia Lino MD Work Phone: [facility] 11-14-2024 14:15-0400 Body weight 64.86 kg Georgia Lino MD Work Phone: [facility] 11-14-2024 14:15-0400 Diastolic blood pressure 74 mm[Hg] Georgia Lino MD Work Phone: [facility] 11-14-2024 14:15-0400 Systolic blood pressure 114 mm[Hg] Georgia Lino MD Work Phone: [facility] 11-12-2024 11:36-0400 Body mass index (BMI) [Ratio] 27.58 kg/m2 Flaquita Romero APRN.[employer]UDIO [employer] UP WORKER Work Phone: [facility] 11-12-2024 11:36-0400 Body temperature 98.1 [degF] Flaquita Romero APRN.[employer]UDIO [employer] UP WORKER Work Phone: [facility] 11-12-2024 11:36-0400 Body weight 66.2 kg Flaquita Romero APRN.[employer]UDIO [employer] UP WORKER Work Phone: [facility] 11-12-2024 11:36-0400 Diastolic blood pressure 72 mm[Hg] Flaquita Romero APRN.STUDIO [employer] UP WORKER Work Phone: [facility] 11-12-2024 11:36-0400 Heart rate 116 /min Flaquita Romero APRN.[employer]UDIO [employer] UP WORKER Work Phone: [facility] 11-12-2024 11:36-0400 Respiratory rate 16 /min Flaquita Romero APRN.[employer]UDIO [employer] WORKER Work Phone: [facility] 11-12-2024 11:36-0400 SaO2% (BldA) [Mass fraction] 98 % Flaquita Romero APRN.STUDIO SET UP WORKER Work Phone: [facility] 11-12-2024 11:36-0400 Systolic blood pressure 110 mm[Hg] Flaquita Romero APRN.STUDIO SET UP WORKER Work Phone: [facility] 10-21-2024 10:23-0400 Body mass index (BMI) [Ratio] 27.21 kg/m2 Genesis Martinez MD Work Phone: [facility] 10-21-2024 10:23-0400 Body weight 65.32 kg Geneiss Martinez MD Work Phone: [facility] 10-21-2024 10:23-0400 Diastolic blood pressure 74 mm[Hg] Genesis Martinez MD Work Phone: [facility] 10-21-2024 10:23-0400 Systolic blood pressure 110 mm[Hg] Genesis Martinez MD Work Phone: [facility] 10-13-2024 13:03-0400 Body mass index (BMI) [Ratio] 27.1 kg/m2 Angie [place] [employer]UDIO SET UP WORKER Work Phone: [facility] 10-13-2024 13:03-0400 Body weight 65.05 kg Angie Bhargavi [employer]UDIO SET UP WORKER Work Phone: [facility] 10-13-2024 13:03-0400 Diastolic blood pressure 68 mm[Hg] Angie Bhargavi [employer].STUDIO [employer] UP WORKER Work Phone: [facility] 10-13-2024 13:03-0400 Systolic blood pressure 110 mm[Hg] Angie Bhargavi [employer].STUDIO SET UP WORKER Work Phone: [facility] 10-06-2024 14:49-0400 Body mass index (BMI) [Ratio] 27.02 kg/m2 Amilcar Plotts [employer].CNM Work Phone: [facility] 10-06-2024 14:49-0400 Body weight 64.86 kg Amilcar Plotts [employer].CNM Work Phone: [facility] 10-06-2024 14:49-0400 Diastolic blood pressure 78 mm[Hg] Amilcar Plotts [employer].CNM Work Phone: [facility] 10-06-2024 14:49-0400 Heart rate 82 /min Amilcar Plotts [employer].CNM Work Phone: [facility] 10-06-2024 14:49-0400 SaO2% (BldA) [Mass fraction] 98 % Amilcar Plotts [employer].CNM Work Phone: [facility] 10-06-2024 14:49-0400 Systolic blood pressure 116 mm[Hg] Amilcar Plotts [employer].CNM Work Phone: [facility] 09-29-2024 08:50-0400 Body height 154.9 cm Naren Haury [employer]IO SET UP WORKER Work Phone: [facility] 09-29-2024 08:50-0400 Body mass index (BMI) [Ratio] 26.83 kg/m2 Naren Haury [employer].STUDIO SET UP WORKER Work Phone: [facility] 09-29-2024 08:50-0400 Body weight 64.41 kg Naren Haury [employer].STUDIO SET UP WORKER Work Phone: [facility] 09-29-2024 08:50-0400 Diastolic blood pressure 82 mm[Hg] Naren Haury [employer].STUDIO SET UP WORKER Work Phone: [facility] 09-29-2024 08:50-0400 Systolic blood pressure 116 mm[Hg] Naren Haury [employer].STUDIO SET UP WORKER Work Phone: [facility] 09-11-2024 11:02-0400 Body mass index (BMI) [Ratio] 27.06 kg/m2 Milly Singh MD Work Phone: [facility] 09-11-2024 11:02-0400 Body weight 64.95 kg Milly Singh MD Work Phone: [facility] 09-11-2024 11:02-0400 Diastolic blood pressure 72 mm[Hg] Milly Singh MD Work Phone: [facility] 09-11-2024 11:02-0400 Systolic blood pressure 110 mm[Hg] Milly Singh MD Work Phone: [facility] 09-02-2024 09:01-0400 Body mass index (BMI) [Ratio] 28.53 kg/m2 Georgia Lino MD Work Phone: [facility] 09-02-2024 09:01-0400 Body weight 68.49 kg Georgia Lino MD Work Phone: [facility] 09-02-2024 09:01-0400 Diastolic blood pressure 66 mm[Hg] Georgia Lino MD Work Phone: [facility] 09-02-2024 09:01-0400 Systolic blood pressure 122 mm[Hg] Georgia Lino MD Work Phone: [facility] 08-29-2024 13:47-0400 Body mass index (BMI) [Ratio] 29.1 kg/m2 Genesis Martinez MD Work Phone: [facility] 08-29-2024 13:47-0400 Body weight 69.85 kg Genesis Martinez MD Work Phone: [facility] 08-29-2024 13:47-0400 Diastolic blood pressure 70 mm[Hg] Genesis Martinez MD Work Phone: [facility] 08-29-2024 13:47-0400 Systolic blood pressure 112 mm[Hg] Genesis Martinez MD Work Phone: [facility] 08-25-2024 14:10-0400 Heart rate 100 /min No Primary Care Physician [facility] 08-25-2024 12:00-0400 Body temperature 98.6 [degF] No Primary Care Physician [facility] 08-25-2024 12:00-0400 Diastolic blood pressure 87 mm[Hg] No Primary Care Physician [facility] 08-25-2024 12:00-0400 Respiratory rate 18 /min No Primary Care Physician [facility] 08-25-2024 12:00-0400 SaO2% (BldA) [Mass fraction] 98 % No Primary Care Physician [facility] 08-25-2024 12:00-0400 Systolic blood pressure 128 mm[Hg] No Primary Care Physician [facility] 08-22-2024 19:23-0400 Body height 154.94 cm No Primary Care Physician [facility] 08-22-2024 19:23-0400 Body mass index (BMI) [Ratio] 32 kg/m2 No Primary Care Physician [facility] 08-22-2024 19:23-0400 Body weight 76.82 kg No Primary Care Physician [facility] 08-22-2024 08:25-0400 Body mass index (BMI) [Ratio] 32.01 kg/m2 Georgia Lino MD Work Phone: [facility] 08-22-2024 08:25-0400 Body weight 76.84 kg Georgia Lino MD Work Phone: [facility] 08-22-2024 08:25-0400 Diastolic blood pressure 84 mm[Hg] Georgia Lino MD Work Phone: [facility] 08-22-2024 08:25-0400 Systolic blood pressure 124 mm[Hg] Georgia Lino MD Work Phone: [facility] 08-19-2024 14:52-0400 Body mass index (BMI) [Ratio] 32.12 kg/m2 Georgia Lino MD Work Phone: [facility] 08-19-2024 14:52-0400 Body weight 77.11 kg Georgia Lino MD Work Phone: [facility] 08-19-2024 14:52-0400 Diastolic blood pressure 70 mm[Hg] Georgia Lino MD Work Phone: [facility] 08-19-2024 14:52-0400 Systolic blood pressure 126 mm[Hg] Georgia Lion MD Work Phone: [facility] 08-11-2024 10:14-0400 Body mass index (BMI) [Ratio] 32.12 kg/m2 Kahlil Ramsey MD Work Phone: [facility] 08-11-2024 10:14-0400 Body weight 77.11 kg Kahlil Ramsey MD Work Phone: [facility] 08-11-2024 10:14-0400 Diastolic blood pressure 76 mm[Hg] Kahlil Ramsey MD Work Phone: [facility] 08-11-2024 10:14-0400 Systolic blood pressure 122 mm[Hg] Kahlil Ramsey MD Work Phone: [facility] 08-07-2024 22:15-0400 Diastolic blood pressure 80 mm[Hg] No Primary Care Physician [facility] 08-07-2024 22:15-0400 Heart rate 67 /min No Primary Care Physician [facility] 08-07-2024 22:15-0400 SaO2% (BldA) [Mass fraction] 97 % No Primary Care Physician [facility] 08-07-2024 22:15-0400 Systolic blood pressure 122 mm[Hg] No Primary Care Physician [facility] 08-07-2024 20:39-0400 Respiratory rate 16 /min No Primary Care Physician [facility] 08-07-2024 19:45-0400 Body temperature 98.8 [degF] No Primary Care Physician [facility] 08-07-2024 16:50-0400 Body height 154.94 cm No Primary Care Physician [facility] 08-07-2024 16:50-0400 Body mass index (BMI) [Ratio] 31.1 kg/m2 No Primary Care Physician [facility] 08-07-2024 16:50-0400 Body weight 74.84 kg No Primary Care Physician [facility] 07-29-2024 10:29-0400 Body mass index (BMI) [Ratio] 31.29 kg/m2 Georgia Lino MD Work Phone: [facility] 07-29-2024 10:29-0400 Body weight 75.12 kg Georgia Lino MD Work Phone: [facility] 07-29-2024 10:29-0400 Diastolic blood pressure 62 mm[Hg] Georgia Lino MD Work Phone: [facility] 07-29-2024 10:29-0400 Systolic blood pressure 120 mm[Hg] Georgia Lino MD Work Phone: [facility] 07-15-2024 10:10-0400 Heart rate 95 /min No Primary Care Physician [facility] 07-15-2024 10:10-0400 SaO2% (BldA) [Mass fraction] 98 % No Primary Care Physician [facility] 07-15-2024 09:04-0400 Body temperature 97 [degF] No Primary Care Physician [facility] 07-15-2024 09:04-0400 Diastolic blood pressure 76 mm[Hg] No Primary Care Physician [facility] 07-15-2024 09:04-0400 Systolic blood pressure 124 mm[Hg] No Primary Care Physician [facility] 07-15-2024 09:02-0400 Body height 156.21 cm No Primary Care Physician [facility] 07-15-2024 09:02-0400 Body mass index (BMI) [Ratio] 30 kg/m2 No Primary Care Physician [facility] 07-15-2024 09:02-0400 Body weight 73.4 kg No Primary Care Physician [facility] 07-14-2024 15:15-0400 Heart rate 95 /min No Primary Care Physician [facility] 07-14-2024 15:15-0400 SaO2% (BldA) [Mass fraction] 98 % No Primary Care Physician [facility] 07-14-2024 14:44-0400 Diastolic blood pressure 84 mm[Hg] No Primary Care Physician [facility] 07-14-2024 14:44-0400 Systolic blood pressure 129 mm[Hg] No Primary Care Physician [facility] 07-14-2024 14:32-0400 Body height 156.21 cm No Primary Care Physician [facility] 07-14-2024 14:32-0400 Body mass index (BMI) [Ratio] 29.9 kg/m2 No Primary Care Physician [facility] 07-14-2024 14:32-0400 Body weight 73.2 kg No Primary Care Physician [facility] 07-14-2024 12:57-0400 Body mass index (BMI) [Ratio] 29.59 kg/m2 Amilcar Huitronts [employer].CNM Work Phone: [facility] 07-14-2024 12:57-0400 Body weight 72.21 kg Amilcar Huitronts [employer].CNM Work Phone: [facility] 07-14-2024 12:57-0400 Diastolic blood pressure 70 mm[Hg] Amilcar Plotts [employer].CNM Work Phone: [facility] 07-14-2024 12:57-0400 Systolic blood pressure 110 mm[Hg] Amilcar Huitronts [employer].CNM Work Phone: [facility] 07-11-2024 14:57-0400 Body mass index (BMI) [Ratio] 29.56 kg/m2 Genesis Martinez MD Work Phone: [facility] 07-11-2024 14:57-0400 Body weight 72.12 kg Genesis Martinez MD Work Phone: [facility] 07-11-2024 14:57-0400 Diastolic blood pressure 64 mm[Hg] Genesis Martinez MD Work Phone: [facility] 07-11-2024 14:57-0400 Systolic blood pressure 118 mm[Hg] Genesis Martinez MD Work Phone: [facility] 07-07-2024 16:07-0400 Body mass index (BMI) [Ratio] 29.74 kg/m2 Georgia Lino MD Work Phone: [facility] 07-07-2024 16:07-0400 Body weight 72.58 kg Georgia Lino MD Work Phone: [facility] 07-07-2024 16:07-0400 Diastolic blood pressure 80 mm[Hg] Georgia Lino MD Work Phone: [facility] 07-07-2024 16:07-0400 Systolic blood pressure 122 mm[Hg] Georgia Lino MD Work Phone: [facility] 06-16-2024 10:25-0400 Diastolic blood pressure 64 mm[Hg] No Primary Care Physician [facility] 06-16-2024 10:25-0400 Heart rate 96 /min No Primary Care Physician [facility] 06-16-2024 10:25-0400 SaO2% (BldA) [Mass fraction] 100 % No Primary Care Physician [facility] 06-16-2024 10:25-0400 Systolic blood pressure 117 mm[Hg] No Primary Care Physician [facility] 06-16-2024 00:39-0400 Body height 154.94 cm No Primary Care Physician [facility] 06-16-2024 00:39-0400 Body mass index (BMI) [Ratio] 29.8 kg/m2 No Primary Care Physician [facility] 06-16-2024 00:39-0400 Body weight 71.66 kg No Primary Care Physician [facility] 06-15-2024 23:26-0400 Diastolic blood pressure 86 mm[Hg] No Primary Care Physician [facility] 06-15-2024 23:26-0400 Heart rate 107 /min No Primary Care Physician [facility] 06-15-2024 23:26-0400 Systolic blood pressure 128 mm[Hg] No Primary Care Physician [facility] 06-15-2024 23:25-0400 Body temperature 99.9 [degF] No Primary Care Physician [facility] 06-15-2024 23:25-0400 Respiratory rate 16 /min No Primary Care Physician [facility] 06-15-2024 23:25-0400 SaO2% (BldA) [Mass fraction] 97 % No Primary Care Physician [facility] 06-15-2024 22:53-0400 Body temperature 98 [degF] No Primary Care Physician [facility] 06-15-2024 22:53-0400 Diastolic blood pressure 83 mm[Hg] No Primary Care Physician [facility] 06-15-2024 22:53-0400 Heart rate 100 /min No Primary Care Physician [facility] 06-15-2024 22:53-0400 Respiratory rate 18 /min No Primary Care Physician [facility] 06-15-2024 22:53-0400 SaO2% (BldA) [Mass fraction] 99 % No Primary Care Physician [facility] 06-15-2024 22:53-0400 Systolic blood pressure 123 mm[Hg] No Primary Care Physician [facility] 06-15-2024 19:56-0400 Body height 154.94 cm No Primary Care Physician [facility] 06-15-2024 19:56-0400 Body mass index (BMI) [Ratio] 30 kg/m2 No Primary Care Physician [facility] 06-15-2024 19:56-0400 Body weight 72.12 kg No Primary Care Physician [facility] 06-13-2024 13:23-0400 Body mass index (BMI) [Ratio] 29.52 kg/m2 Milly Singh MD Work Phone: [facility] 06-13-2024 13:23-0400 Body weight 72.03 kg Milly Singh MD Work Phone: [facility] 06-13-2024 13:23-0400 Diastolic blood pressure 76 mm[Hg] Milly Singh MD Work Phone: [facility] 06-13-2024 13:23-0400 Systolic blood pressure 120 mm[Hg] Milly Singh MD Work Phone: [facility] 06-04-2024 16:35-0400 Body mass index (BMI) [Ratio] 29 kg/m2 Amilcar Méndez APRN.CNM Work Phone: [facility] 06-04-2024 16:35-0400 Body weight 70.76 kg Amilcar Méndez APRN.CNShashi Work Phone: [facility] 06-04-2024 16:35-0400 Diastolic blood pressure 70 mm[Hg] Amilcar Méndez APRN.CNM Work Phone: [facility] 06-04-2024 16:35-0400 Systolic blood pressure 108 mm[Hg] Amilcar Méndez APRN.CNShashi Work Phone: [facility] 05-08-2024 09:54-0500 Body mass index (BMI) [Ratio] 27.51 kg/m2 Georgia Lino MD Work Phone: [facility] 05-08-2024 09:54-0500 Body weight 67.13 kg Georgia Lino MD Work Phone: [facility] 05-08-2024 09:54-0500 Diastolic blood pressure 62 mm[Hg] Georgia Lino MD Work Phone: [facility] 05-08-2024 09:54-0500 Systolic blood pressure 106 mm[Hg] Georgia Lino MD Work Phone: [facility] 05-02-2024 16:14-0500 Body mass index (BMI) [Ratio] 27.07 kg/m2 Milly Singh MD Work Phone: [facility] 05-02-2024 16:14-0500 Body weight 66.04 kg Milly Singh MD Work Phone: [facility] 05-02-2024 16:14-0500 Diastolic blood pressure 62 mm[Hg] Milly Singh MD Work Phone: [facility] 05-02-2024 16:14-0500 Systolic blood pressure 112 mm[Hg] Milly Singh MD Work Phone: [facility] 04-14-2024 10:19-0500 Body mass index (BMI) [Ratio] 25.84 kg/m2 Martha Santamaria APRN.CNM Work Phone: [facility] 04-14-2024 10:19-0500 Body weight 63.05 kg Martha Santamaria APRN.CNM Work Phone: [facility] 04-14-2024 10:19-0500 Diastolic blood pressure 70 mm[Hg] Martha Santamaria APRN.CNM Work Phone: [facility] 04-14-2024 10:19-0500 Systolic blood pressure 102 mm[Hg] Martha Santamaria APRN.CNM Work Phone: [facility] 04-08-2024 08:59-0500 Body mass index (BMI) [Ratio] 25.69 kg/m2 Ambreen Romero MD Work Phone: [facility] 04-08-2024 08:59-0500 Body weight 62.69 kg Ambreen Romero MD Work Phone: [facility] 04-08-2024 08:59-0500 Diastolic blood pressure 70 mm[Hg] Ambreen Romero MD Work Phone: [facility] 04-08-2024 08:59-0500 Systolic blood pressure 106 mm[Hg] Ambreen Romero MD Work Phone: [facility] 03-28-2024 09:35-0500 Body height 156.2 cm Jay Byrd MD Work Phone: [facility] 03-28-2024 09:35-0500 Body mass index (BMI) [Ratio] 24.7 kg/m2 Jay Byrd MD Work Phone: [facility] 03-28-2024 09:35-0500 Body weight 60.28 kg Jay Byrd MD Work Phone: [facility] 03-28-2024 09:35-0500 Diastolic blood pressure 71 mm[Hg] Jay Byrd MD Work Phone: [facility] 03-28-2024 09:35-0500 Heart rate 79 /min Jay Byrd MD Work Phone: [facility] 03-28-2024 09:35-0500 Systolic blood pressure 114 mm[Hg] Jay Byrd MD Work Phone: [facility] 03-24-2024 21:00-0500 Diastolic blood pressure 65 mm[Hg] No Primary Care Physician [facility] 03-24-2024 21:00-0500 Heart rate 66 /min No Primary Care Physician [facility] 03-24-2024 21:00-0500 Respiratory rate 16 /min No Primary Care Physician [facility] 03-24-2024 21:00-0500 SaO2% (BldA) [Mass fraction] 98 % No Primary Care Physician [facility] 03-24-2024 21:00-0500 Systolic blood pressure 124 mm[Hg] No Primary Care Physician [facility] 03-24-2024 17:41-0500 Body mass index (BMI) [Ratio] 25.9 kg/m2 No Primary Care Physician [facility] 03-24-2024 17:41-0500 Body temperature 97.7 [degF] No Primary Care Physician [facility] 03-24-2024 17:41-0500 Body weight 62.14 kg No Primary Care Physician [facility] 03-18-2024 13:28-0500 Body mass index (BMI) [Ratio] 26.02 kg/m2 Glendy Ball [employer] WORKER Work Phone: [facility] 03-18-2024 13:28-0500 Body temperature 98.29 [degF] Glendy Ball [employer] WORKER Work Phone: [facility] 03-18-2024 13:28-0500 Body weight 63.5 kg Glendy Ball [employer] WORKER Work Phone: [facility] 03-18-2024 13:28-0500 Diastolic blood pressure 83 mm[Hg] Glendy Ball [employer] WORKER Work Phone: [facility] 03-18-2024 13:28-0500 Heart rate 84 /min Glendy Ball [employer] WORKER Work Phone: [facility] 03-18-2024 13:28-0500 Respiratory rate 18 /min Glendy Ball [employer] WORKER Work Phone: [facility] 03-18-2024 13:28-0500 SaO2% (BldA) [Mass fraction] 98 % Glendy Ball [employer] WORKER Work Phone: [facility] 03-18-2024 13:28-0500 Systolic blood pressure 121 mm[Hg] Glendy Ball [employer]UD[employer] WORKER Work Phone: [facility] 03-17-2024 08:28-0500 Body mass index (BMI) [Ratio] 26.25 kg/m2 Milly Singh MD Work Phone: [facility] 03-17-2024 08:28-0500 Body weight 64.05 kg Milly Singh MD Work Phone: [facility] 03-17-2024 08:28-0500 Diastolic blood pressure 64 mm[Hg] Milly Singh MD Work Phone: [facility] 03-17-2024 08:28-0500 Systolic blood pressure 110 mm[Hg] Milly Singh MD Work Phone: [facility] 03-06-2024 13:05-0500 Body mass index (BMI) [Ratio] 26.1 kg/m2 Georgia Lino MD Work Phone: [facility] 03-06-2024 13:05-0500 Body weight 63.69 kg Georgia Lino MD Work Phone: [facility] 03-06-2024 13:05-0500 Diastolic blood pressure 78 mm[Hg] Georgia Lino MD Work Phone: [facility] 03-06-2024 13:05-0500 Systolic blood pressure 110 mm[Hg] Georgia Lino MD Work Phone: [facility] 02-18-2024 08:30-0500 Body mass index (BMI) [Ratio] 25.47 kg/m2 Martha Santamaria APRN.CNM Work Phone: [facility] 02-18-2024 08:30-0500 Body weight 62.14 kg Martha Santamaria APRN.CNM Work Phone: [facility] 02-18-2024 08:30-0500 Diastolic blood pressure 74 mm[Hg] Martha Santamaria APRN.CNM Work Phone: [facility] 02-18-2024 08:30-0500 Systolic blood pressure 116 mm[Hg] Martha Santamaria APRN.CNM Work Phone: [facility] 01-14-2024 08:23-0500 Body mass index (BMI) [Ratio] 25.76 kg/m2 Angie [place] [employer]IO [employer] UP WORKER Work Phone: [facility] 01-14-2024 08:23-0500 Body weight 62.87 kg Angie [place] [employer]IO [employer] UP WORKER Work Phone: [facility] 01-14-2024 08:23-0500 Diastolic blood pressure 74 mm[Hg] Angie [place] [employer] WORKER Work Phone: [facility] 01-14-2024 08:23-0500 Respiratory rate 16 /min Angie [place] [employer] UP WORKER Work Phone: [facility] 01-14-2024 08:23-0500 Systolic blood pressure 126 mm[Hg] Angie Bhargavi [employer] UP WORKER Work Phone: [facility] 12-24-2023 08:32-0400 Body height 156.2 cm Jay Byrd MD Work Phone: [facility] 12-24-2023 08:32-0400 Body mass index (BMI) [Ratio] 25.41 kg/m2 Jay Byrd MD Work Phone: [facility] 12-24-2023 08:32-0400 Body weight 62.01 kg Jay Byrd MD Work Phone: [facility] 12-24-2023 08:32-0400 Diastolic blood pressure 84 mm[Hg] Jay Byrd MD Work Phone: [facility] 12-24-2023 08:32-0400 Heart rate 99 /min Jay Byrd MD Work Phone: [facility] 12-24-2023 08:32-0400 Systolic blood pressure 134 mm[Hg] Jay Byrd MD Work Phone: [facility] 07-06-2023 11:32-0400 Body temperature 97.6 [degF] Dr. Kayleen Mckay Work Phone: [facility] 07-06-2023 11:32-0400 Diastolic blood pressure 78 mm[Hg] Dr. Kayleen Mckay Work Phone: 9(464)090-474546 [place] [address] 07-06-2023 11:32-0400 Heart rate 64 /min Dr. Kayleen Mckay Work Phone: 6(336)372-661846 [place] [address] 07-06-2023 11:32-0400 Respiratory rate 18 /min Dr. Kayleen Mckay Work Phone: 1(809)174-319746 [place] [address] 07-06-2023 11:32-0400 SaO2% (BldA) [Mass fraction] 99 % Dr. Kayleen Mckay Work Phone: 6(793)910-793646 [place] [address] 07-06-2023 11:32-0400 Systolic blood pressure 118 mm[Hg] Dr. Kayleen Mckay Work Phone: 9(149)022-741146 [place] [address] 07-06-2023 10:32-0400 Body height 154.[address] Kayleen Mckay Work Phone: 1(968)990-775346 [place] [address] 07-06-2023 10:32-0400 Body mass index (BMI) [Ratio] 25.8 kg/m2 Dr. Kayleen Mckay Work Phone: 2(037)554-785746 [place] [address] 07-06-2023 10:32-0400 Body weight [address] Kayleen Mckay Work Phone: 2(608)194-167946 [place] [address] 06-19-2023 12:18-0400 Body temperature 98.3 [degF] Dr. Kayleen Mckay Work Phone: 8(670)724-709846 [place] [address] 06-19-2023 12:18-0400 Diastolic blood pressure 70 mm[Hg] Dr. Kayleen Mckay Work Phone: 6(510)199-083346 [place] [address] 06-19-2023 12:18-0400 Heart rate 86 /min Dr. Kayleen Mckay Work Phone: 9(671)910-829246 [place] [address] 06-19-2023 12:18-0400 Respiratory rate 12 /min Dr. Kayleen Mckay Work Phone: 7(071)933-174446 [place] [address] 06-19-2023 12:18-0400 SaO2% (BldA) [Mass fraction] 99 % Dr. Kayleen Mckay Work Phone: 1(245)810-983646 [place] [address] 06-19-2023 12:18-0400 Systolic blood pressure 116 mm[Hg] Dr. Kayleen Mckay Work Phone: [facility] 04-14-2023 12:52-0500 Body temperature 98.4 [degF] Michelet Barreto MD Work Phone: [facility] 04-14-2023 12:52-0500 Body weight 64.86 kg Michelet Barreto MD Work Phone: [facility] 04-14-2023 12:52-0500 Diastolic blood pressure 87 mm[Hg] Michelet Barreto MD Work Phone: [facility] 04-14-2023 12:52-0500 Heart rate 88 /min Michelet Barreto MD Work Phone: [facility] 04-14-2023 12:52-0500 Respiratory rate 18 /min Michelet Barreto MD Work Phone: [facility] 04-14-2023 12:52-0500 SaO2% (BldA) [Mass fraction] 99 % Michelet Barreto MD Work Phone: [facility] 04-14-2023 12:52-0500 Systolic blood pressure 138 mm[Hg] Michelet Barreto MD Work Phone: [facility] 10-22-2022 20:18-0400 Diastolic blood pressure 65 mm[Hg] Dr. Kayleen Mckay Work Phone: [facility] 10-22-2022 20:18-0400 Heart rate 72 /min Dr. Kayleen Mckay Work Phone: [facility] 10-22-2022 20:18-0400 Respiratory rate 18 /min Dr. Kayleen Mckay Work Phone: [facility] 10-22-2022 20:18-0400 SaO2% (BldA) [Mass fraction] 100 % Dr. Kayleen Mckay Work Phone: [facility] 10-22-2022 20:18-0400 Systolic blood pressure 116 mm[Hg] Dr. Kayleen Mckay Work Phone: 2(817)090-336525 [place] [address] 10-22-2022 17:39-0400 Body height 154.[address] Kayleen Mckay Work Phone: 5(512)348-192746 [place] [address] 10-22-2022 17:39-0400 Body mass index (BMI) [Ratio] 27.6 kg/m2 Dr. Kayleen Mckay Work Phone: 4(839)394-837946 [place] [address] 10-22-2022 17:39-0400 Body temperature 98.6 [degF] Dr. Kayleen Mckay Work Phone: 7(353)021-159146 [place] [address] 10-22-2022 17:39-0400 Body weight 66.[address] Kayleen Mckay Work Phone: 1(850)095-355946 [place] [address] 09-14-2022 12:18-0400 Diastolic blood pressure 64 mm[Hg] Dr. Kayleen Mckay Work Phone: 2(220)535-782846 [place] [address] 09-14-2022 12:18-0400 Systolic blood pressure 128 mm[Hg] Dr. Kayleen Mckay Work Phone: 4(618)713-661146 [place] [address] 09-14-2022 12:16-0400 Body temperature 98 [degF] Dr. Kayleen Mckay Work Phone: 6(795)297-881746 [place] [address] 09-14-2022 12:16-0400 Heart rate 100 /min Dr. Kayleen Mckay Work Phone: 2(857)203-936546 [place] [address] 09-14-2022 12:16-0400 Respiratory rate 12 /min Dr. Kayleen Mckay Work Phone: 3(783)496-999046 [place] [address] 09-14-2022 12:16-0400 SaO2% (BldA) [Mass fraction] 98 % Dr. Kayleen Mckay Work Phone: 4(702)071-915346 [place] [address] 03-19-2022 10:15-0500 Body temperature 97.5 [degF] Dr. Kayleen Mckay Work Phone: 8(473)025-054346 [place] [address] 03-19-2022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 10/21/2024 11:10 AM EDT Office Visit OB/Gynecology [address] [place], [place] [id number] Genesis Martinez MD [address] [place], [place] [id number] pain and bleeding concerns OB/Gynecology Comment on above: pain and bleeding concerns Start: 09-29-2024 End: 09-29-2024 Patient encounter procedure 09/29/2024 9:20 AM EDT Office Visit OB/Gynecology [address] [place] [address] Georgia Lino MD [address] [place] [address] PP OB/Gynecology Comment on above: PP Start: 09-26-2024 End: 09-26-2024 Patient encounter procedure 09/26/2024 2:45 PM EDT Office Visit OB/Gynecology [address] [place] [address] Naren Jc, PET STORE MERCHANDISER.STUDIO SET UP WORKER [address] [place] [address] PP OB/Gynecology Comment on above: PP Start: 09-17-2024 End: 09-17-2024 ambulatory 09/17/2024 9:00 AM EDT [facility] Psychiatry [address] [facility] [address] [place] [address] Moise Meade PET STORE MERCHANDISER.STUDIO SET UP WORKER [address] [place] [address] Depression and Anxiety Psychiatry Comment on above: Depression and Anxiety Start: 09-10-2024 End: 09-10-2024 Patient encounter procedure 09/10/2024 7:00 AM EDT Office Visit OB/Gynecology [address] [place] [address] Naren Jc, PET STORE MERCHANDISER.STUDIO SET UP WORKER [address] [place] [address] PP/ med check VV OB/Gynecology Comment on above: PP/ med check VV Start: 08-29-2024 End: 08-29-2024 Patient encounter procedure 08/29/2024 4:30 PM EDT Routine Office Visit OB/Gynecology [address] [place] [address] Amilcar Méndez APRN.[facility] [address] [place] [address] NABIL OB/Gynecology Comment on above: NABIL Start: 08-27-2024 End: 08-27-2024 Patient encounter procedure 08/27/2024 3:50 PM EDT Routine Office Visit OB/Gynecology [address] [place] [address] Georgia Lino MD [address] [place] [address] NABIL OB/Gynecology Comment on above: NABIL Start: 08-25-2024 Patient discharge [facility] Start: 08-25-2024 [facility] Start: 08-25-2024 Application of abdominal corset [facility] Start: 08-24-2024 End: 08-25-2024 [facility] Start: 08-24-2024 Continuous pulse oximetry [facility] Start: 08-24-2024 End: 08-24-2024 Notification of physician [facility] Start: 08-24-2024 Oxygen therapy [facility] Start: 08-24-2024 End: 08-24-2024 Administration of blood product [facility] Start: 08-24-[address] [facility] Start: 08-24-2024 Ambulation therapy management [facility] Start: 08-24-2024 Application of device [facility] Start: 08-24-2024 Application of intermittent pneumatic compression device [facility] Start: 08-24-2024 Assessment of risk of venous thromboembolism [facility] Start: 08-24-2024 Catheterization of vein [facility] Start: 08-24-2024 Deep breathing and coughing exercises [facility] Start: 08-24-2024 Exercises [facility] Start: 08-24-2024 Measuring intake and output [facility] Start: 08-24-2024 Procedure discontinued [facility] Start: 08-24-2024 Provision of activity privileges [facility] Start: 08-24-2024 Skin care [facility] Start: 08-24-2024 Vital signs measurements [facility] Start: 08-24-2024 Wound care [facility] Start: 08-24-2024 Application of abdominal corset [facility] Start: 08-24-2024 Consultation [facility] Start: 08-22-2024 Admission procedure [facility] Start: 08-22-2024 End: 08-22-2024 Patient encounter procedure 08/22/2024 4:30 PM EDT Routine Office Visit OB/Gynecology [address] [place] [address] Amilcar Méndez APRN.CN [address] [place] [address] NABIL OB/Gynecology Comment on above: NABIL Start: 08-22-2024 End: 08-22-2024 Patient encounter procedure 08/22/2024 8:50 AM EDT Routine Office Visit OB/Gynecology [address] [place] [address] Georgia Lino MD [address] [place] [address] OB - schedule induction - time per RR OB/Gynecology Comment on above: OB - schedule induction - time per RR Start: 08-19-2024 End: 08-19-2024 Patient encounter procedure 08/19/2024 2:50 PM EDT Routine Office Visit OB/Gynecology [address] [place] [address] Georgia Lino MD [address] [place] [address] NABIL OB/Gynecology Comment on above: NABIL Start: 08-11-2024 End: 08-11-2024 Patient encounter procedure 08/11/2024 10:40 AM EDT Routine Office Visit OB/Gynecology [address] [place] [address] Kahlil Escobar MD [address] [place] [address] NABIL OB/Gynecology Comment on above: NABIL Start: 08-08-2024 End: 08-08-2024 Patient encounter procedure 08/08/2024 3:45 PM EDT Routine Office Visit OB/Gynecology [address] [place] [address] Naren Jc, [place].STUDIO SET UP WORKER [address] [place] [address] NABIL OB/Gynecology Comment on above: NABIL Start: 08-07-2024 Electrocardiographic procedure [facility] Start: 08-07-2024 Administration of blood product [facility] Start: 08-07-2024 End: 08-07-2024 [facility] Start: 08-07-2024 Nonstress test [facility] Start: 08-07-2024 Obstetric monitoring [facility] Start: 08-07-2024 Vital signs measurements [facility] Start: 08-07-2024 Patient discharge [facility] Start: 07-31-2024 End: 07-31-2024 Nursing evaluation of patient and report 07/31/2024 4:00 PM EDT Nurse Visit OB/Gynecology [address] [place] [address] Wstr, Nurse Assemblyman Or Woman [facility] [address] [facility] [place] [address] Nurse appt - T-DAP vaccine OB/Gynecology Comment on above: Nurse appt - T-DAP vaccine Start: 07-31-2024 Tdap vaccine 7 yrs/> im TDAP VACCINE, AGE 7+ YR (ADACEL, BOOSTRIX) Immunization/Injection Routine Need for vaccination Expected: 07/31/2024 (Approximate) [facility] Work Phone: Comment on above: Expected: 07/31/2024 (Approximate) Start: 07-29-2024 End: 07-29-2024 Patient encounter procedure 07/29/2024 11:10 AM EDT Routine Office Visit OB/Gynecology [address] [place] [address] Georgia Lino MD [address] [place] [address] OB OB/Gynecology Comment on above: OB Start: 07-25-2024 End: 07-25-2024 Patient encounter procedure 07/25/2024 3:45 PM EDT Routine Office Visit OB/Gynecology [address] [place] [address] Naren Jc APRN.STUDIO SET UP WORKER [address] [place] [address] NABIL OB/Gynecology Comment on above: NABIL Start: 07-22-2024 End: 07-22-2024 Patient encounter procedure 07/22/2024 9:50 AM EDT Routine Office Visit OB/Gynecology [address] [place] [address] Georgia Lino MD [address] [place] [address] OB OB/Gynecology Comment on above: OB Start: 07-15-2024 Nonstress test [facility] Start: 07-15-2024 Obstetric monitoring [facility] Start: 07-15-2024 [facility] Start: 07-15-2024 Vital signs measurements [facility] Start: 07-15-2024 Patient discharge [facility] Start: 07-14-2024 Nonstress test [facility] Start: 07-14-2024 Obstetric monitoring [facility] Start: 07-14-2024 End: 07-14-2024 [facility] Start: 07-14-2024 Vital signs measurements [facility] Start: 07-14-2024 Bacteria identified in Urine by Culture Urine Culture [facility] Start: 07-14-2024 Patient discharge [facility] Start: 07-11-2024 End: 07-11-2024 Patient encounter procedure 07/11/2024 2:40 PM EDT Routine Office Visit OB/Gynecology [address] [place] [address] Genesis Martinez MD [address] [place] [address] Ob OB/Gynecology Comment on above: Ob Start: 07-08-2024 End: 07-08-2024 Patient encounter procedure 07/08/2024 9:00 AM EDT Appointment OB/Gynecology [address] [place] [address] L&D, [place] [address] [place] [address] [employer]Power phone consult OB/Gynecology Comment on above: [employer] phone consult Start: 06-27-2024 End: 06-27-2024 Patient encounter procedure 06/27/2024 2:30 PM EDT Routine Office Visit OB/Gynecology [address] [place] [address] Martha Santamaria APRN.CN [address] [place] [address] OB OB/Gynecology Comment on above: OB Start: 06-15-2024 [facility] Start: 06-15-2024 [facility] Start: 06-15-2024 Iv infusion hydration initial 31 min-1 hour HYDRATION IV INFUSION INIT [facility] Start: 06-13-2024 End: 06-13-2024 Patient encounter procedure 06/13/2024 1:30 PM EDT Routine Office Visit OB/Gynecology [address] [place] [address] Milly Singh MD [address] [place] [address] OB Routine OB/Gynecology Comment on above: OB Routine Start: 06-13-2024 End: 06-13-2024 ambulatory 06/13/2024 1:15 PM EDT Results Only [place] [facility] [address] [place] [address] Glucose test and LABs [facility] Comment on above: Glucose test and LABs Start: 05-13-2024 End: 05-13-2024 Patient encounter procedure 05/13/2024 1:30 PM EDT Routine Office Visit OB/Gynecology [address] [place] [address] Georgia Lino MD [address] [place] [address] OB Routine OB/Gynecology Comment on above: OB Routine Start: 05-08-2024 End: 08-07-2024 ANEMIA REFLEX PANEL ANEMIA REFLEX PANEL Lab Routine 23 weeks gestation of Encounter for supervision of normal first in second trimester PVC's (premature ventricular contractions) Depression with anxiety Rh negative state in antepartum period Expected: 05/08/2024, Expires: 08/07/2024 [facility] Comment on above: Expected: 05/08/2024, Expires: Start: 05-08-2024 End: 05-08-2025 GESTATIONAL GLUCOSE SCREEN, 1-HOUR, 50 GRAM, NON-FASTING GESTATIONAL GLUCOSE SCREEN, 1-HOUR, 50 GRAM, NON-FASTING Lab Routine Screening for diabetes mellitus 23 weeks gestation of Encounter for supervision of normal first in second trimester PVC's (premature ventricular contractions) Depression with anxiety Rh negative state in antepartum period Expected: 05/08/2024, Expires: 05/08/2025 [facility] Work Phone: Comment on above: Expected: 05/08/2024, Expires: Start: 05-08-2024 End: 05-08-2025 SYPHILIS TREPONEMAL W/REFLEX SYPHILIS TREPONEMAL W/REFLEX Lab Routine 23 weeks gestation of Encounter for supervision of normal first in second trimester PVC's (premature ventricular contractions) Depression with anxiety Rh negative state in antepartum period Expected: 05/08/2024, Expires: 05/08/2025 [facility] Comment on above: Expected: 05/08/2024, Expires: 6 Start: 05-08-2024 End: 08-07-2024 TYPE + SCREEN TYPE + SCREEN Blood Bank Routine 23 weeks gestation of Encounter for supervision of normal first in second trimester PVC's (premature ventricular contractions) Depression with anxiety Rh negative state in antepartum period Expected: 05/08/2024, Expires: 08/07/2024 [facility] Comment on above: Expected: 05/08/2024, Expires: 5 Start: 05-08-2024 End: 05-08-2024 Patient encounter procedure 05/08/2024 10:10 AM EST Routine Office Visit OB/Gynecology [address] [place] [address] Georgia Lino MD [address] [place] [address] OB Routine OB/Gynecology Comment on above: OB Routine Start: 04-14-2024 End: 04-14-2024 Patient encounter procedure [facility] al [facility] Comment on above: Anatomy OB Start: 04-08-2024 End: 04-08-2024 Patient encounter procedure 04/08/2024 9:00 AM EST Routine Office Visit OB/Gynecology [address] [place] [address] Ambreen Romero MD [address] [place] [address] OB-N/V OB/Gynecology Comment on above: OB-N/V Start: 03-28-2024 End: 03-28-2024 Patient encounter procedure 03/28/2024 9:15 AM EST Office Visit Cardiology [address] [place] [address] Jay Byrd MD [address] [facility] [address] [place] [address] 3 MONTH FOLLOW UP Cardiology Comment on above: 3 MONTH FOLLOW UP Start: 03-28-2024 End: 03-28-2024 Follow-up encounter 03/28/2024 8:45 AM EST Results Only Cardiology [address] [place] [address] 3 MONTH FOLLOW UP Cardiology Comment on above: 3 MONTH FOLLOW UP Start: 03-24-2024 [facility] Start: 03-24-2024 Enteric precautions [facility] Start: 03-17-2024 End: 03-17-2024 Patient encounter procedure 03/17/2024 8:30 AM EST Routine Office Visit OB/Gynecology [address] [place] [address] Milly Singh MD [address] [place] [address] OB OB/Gynecology Comment on above: OB Start: 02-18-2024 End: 05-19-2024 Chromosome 21 trisomy [Presence] in Blood or Tissue by Cytogenetics [facility] Work Phone: Comment on above: Expected: 02/18/2024, Expires: Start: 02-18-2024 End: 02-17-2025 OBSTETRIC ULTRASOUND WHI OBSTETRIC ULTRASOUND [facility] Anc Imaging Routine 12 weeks gestation of Encounter for supervision of normal first in second trimester Expected: 02/18/2024, Expires: 02/17/2025 [facility] Work Phone: Comment on above: Expected: 02/18/2024, Expires: Start: 02-18-2024 End: 02-18-2024 Patient encounter procedure 02/18/2024 10:20 AM EST Routine Office Visit OB/Gynecology [address] [place] [address] Genesis Martinez MD [address] [place] [address] ob lmp 11/22 OB/Gynecology Comment on above: ob lmp 11/22 Start: 02-18-2024 End: 02-18-2024 Patient encounter procedure Maternal Fet al Medicine Comment on above: Nuchal Est New OB/lmp11/22 Start: 02-18-2024 End: 02-18-2024 ambulatory [place] [facility] Station Comment on above: Lab Start: 01-14-2024 End: 04-14-2024 ANEMIA REFLEX PANEL ANEMIA REFLEX PANEL Lab Routine 7 weeks gestation of Expected: 01/14/2024, Expires: 04/14/2024 [facility] Work Phone: Comment on above: Expected: 01/14/2024, Expires: Start: 01-14-2024 End: 04-14-2024 Hemoglobin A1c in Blood HEMOGLOBIN A1C Lab Routine 7 weeks gestation of Expected: 01/14/2024, Expires: 04/14/2024 [facility] Comment on above: Expected: 01/14/2024, Expires: Start: 01-14-2024 End: 04-14-2024 Hepatitis B virus surface Ag [Presence] in Serum HEPATITIS B SURFACE ANTIGEN Lab Routine 7 weeks gestation of Expected: 01/14/2024, Expires: 04/14/2024 [facility] Comment on above: Expected: 01/14/2024, Expires: Start: 01-14-2024 End: 04-14-2024 Hepatitis C virus Ab [Presence] in Serum HEPATITIS C ANTIBODY IA WITH CONFIRMATION Lab Routine 7 weeks gestation of Expected: 01/14/2024, Expires: 04/14/2024 [facility] Comment on above: Expected: 01/14/2024, Expires: Start: 01-14-2024 End: 04-14-2024 HIV 1+2 Ab [Presence] in Serum or Plasma by Immunoassay HIV 1/2 COMBO WITH REFLEX TO DIFFERENTIATION Lab Routine 7 weeks gestation of Expected: 01/14/2024, Expires: 04/14/2024 [facility] Comment on above: Expected: 01/14/2024, Expires: Start: 01-14-2024 End: 01-13-2025 NUCHAL TRANSLUCENCY WHI NUCHAL TRANSLUCENCY WHI Anc Imaging Routine 7 weeks gestation of Expected: 01/14/2024, Expires: 01/13/2025 [facility] Comment on above: Expected: 01/14/2024, Expires: Start: 01-14-2024 End: 04-14-2024 RUBELLA IGG ANTIBODY RUBELLA IGG ANTIBODY Lab Routine 7 weeks gestation of Expected: 01/14/2024, Expires: 04/14/2024 [facility] Comment on above: Expected: 01/14/2024, Expires: Start: 01-14-2024 End: 04-14-2024 SYPHILIS TREPONEMAL W/REFLEX SYPHILIS TREPONEMAL W/REFLEX Lab Routine 7 weeks gestation of Expected: 01/14/2024, Expires: 04/14/2024 [facility] Comment on above: Expected: 01/14/2024, Expires: Start: 01-14-2024 End: 04-14-2024 TYPE + SCREEN TYPE + SCREEN Blood Bank Routine 7 weeks gestation of Expected: 01/14/2024, Expires: 04/14/2024 [facility] Comment on above: Expected: 01/14/2024, Expires: Start: 12-24-2023 End: 03-24-2024 CBC panel - Blood by Automated count COMPLETE BLOOD COUNT Lab Routine PVC (premature ventricular contraction) Tachycardia Expected: 12/24/2023, Expires: 03/24/2024 [facility] Comment on above: Expected: 12/24/2023, Expires: Start: 12-24-2023 End: 03-24-2024 Comprehensive metabolic 2000 panel - Serum or Plasma COMPREHENSIVE METABOLIC PANEL Lab Routine PVC (premature ventricular contraction) Tachycardia Expected: 12/24/2023, Expires: 03/24/2024 [facility] Comment on above: Expected: 12/24/2023, Expires: Start: 12-24-2023 End: 03-24-2024 Thyrotropin [Units/volume] in Serum or Plasma THYROID STIMULATING HORMONE Lab Routine PVC (premature ventricular contraction) Tachycardia Expected: 12/24/2023, Expires: 03/24/2024 [facility] Comment on above: Expected: 12/24/2023, Expires: Start: 12-24-2023 End: 03-24-2024 Thyroxine (T4) free [Mass/volume] in Serum or Plasma T4 FREE/FREE THYROXINE Lab Routine PVC (premature ventricular contraction) Tachycardia Expected: 12/24/2023, Expires: 03/24/2024 [facility] Comment on above: Expected: 12/24/2023, Expires: Start: 12-24-2023 End: 03-24-2024 Triiodothyronine (T3) Free [Mass/volume] in Serum or Plasma T3, FREE Lab Routine PVC (premature ventricular contraction) Tachycardia Expected: 12/24/2023, Expires: 03/24/2024 [facility] Work Phone: Comment on above: Expected: 12/24/2023, Expires: Start: 12-24-2023 End: 12-24-2023 ambulatory 12/24/2023 7:45 AM EDT Results Only Cardiology [address] [place] [address] [facility] Comment on above: [facility] Start: 12-24-2023 End: 12-24-2023 Patient encounter procedure Cardiology Comment on above: [facility] Start: 11-04-2023 Covid-19 Vaccine ( season) Covid-19 Vaccine ( season) [facility] Start: 11-04-2023 Covid-19 Vaccine ( season) Covid-19 Vaccine ( season) [facility] Start: 11-04-2023 Influenza vaccination Influenza Vaccine (#1) [facility] Start: 07-06-2023 [facility] Start: 2023 Screening for malignant neoplasm of cervix Cervical Cancer Screening [facility] Start: 03-05-2023 Depression Assessment Depression Assessment [facility] Start: 11-03-2022 Influenza vaccination Influenza Vaccine (#1) [facility] Start: 12-07-2021 Patient referral [facility] Work Phone: Start: 2020 Anxiety Screening Anxiety Screening [facility] Start: 2020 Depression Screening Depression Screening [facility] Start: 2020 GC (Gonorrhea) Screening (18-24) GC (Gonorrhea) Screening (18-24) [facility] Start: 2020 Hepatitis C screening Hepatitis C Screening [facility] Start: 2020 HIV screening HIV Screening [facility] Start: 2020 Screening for Chlamydia trachomatis Chlamydia Screening (18-24) [facility] Start: 2018 Meningococcal B Vaccine (1 of 2 - Standard) Meningococcal B Vaccine (1 of 2 - Standard) [facility] Start: 2018 Meningococcal B Vaccine: Consider Based On Risk (1 of 2 - Patient Seeks Protection) Meningococcal B Vaccine: Consider Based On Risk (1 of 2 - Patient Seeks Protection) [facility] Start: 2017 HPV Vaccine (1 - 3-dose series) HPV Vaccine (1 - 3-dose series) [facility] Start: 2016 Peds To Adult Transition Annual Assessment Peds To Adult Transition Annual Assessment [facility] Start: 2014 Peds To Adult Transition Initial Discussion Peds To Adult Transition Initial Discussion [facility] Start: 2011 HPV Vaccine (1 - 2-dose series) HPV Vaccine (1 - 2-dose series) [facility] Start: 2002 Covid-19 Vaccine (#1) Covid-19 Vaccine (#1) [facility] Bacteria identified in Urine by Culture URINE CULTURE Microbiology Routine 7 weeks gestation of 01/14/2024 9:13 AM [facility] BACTERIAL VAGINOSIS NAAT BACTERI AL VAGINOSIS NAAT Lab Routine Vaginal discharge 07/14/2024 1:44 PM EDT [facility] IRENE/TRICHOMONAS NAAT IRENE /TRICHOMONAS NAAT Lab Routine Vaginal discharge 07/14/2024 1:44 PM EDT [facility] Chlamydia trachomatis+Neisseria gonorrhoeae DNA [Presence] in Unspecified specimen by RICHARD with probe detection GONORRHEA/CHLAMYDIA NAAT Lab Routine 7 weeks gestation of 01/14/2024 9:13 AM EST [facility] End: 11-12-2024 ECG COMPLETE ECG COMPLETE ECG Routine PVC's (premature ventricular contractions) 1 Occurrences starting 11/13/2023 until 11/12/2024 [facility] Work Phone: Comment on above: 1 Occurrences starting 11/13/2023 until 11/12/2024 End: 03-27-2025 ECG COMPLETE ECG COMPLETE ECG Routine EKG abnormalities 1 Occurrences starting 03/27/2024 until 03/27/2025 [facility] Work Phone: Comment on above: 1 Occurrences starting 03/27/2024 until 03/27/2025 Hemoglobin F [Presen ce] in Blood by Kletusharauer-Betneelam method [facility] OUTSIDE VENDOR CARDI AC OUTPATIENT EXTENDED RHYTHM RECORDING (WITHOUT TELEMETRY) OUTSIDE VENDOR CARDIAC OUTPATIENT EXTENDED RHYTHM RECORDING (WITHOUT TELEMETRY) Holter Routine PVC (premature ventricular contraction) Tachycardia Ordered: 12/24/2023 [facility] Comment on above: Ordered: 12/24/2023 PAP TEST PAP TEST Lab [facility] Screening for cervical cancer 7 weeks gestation of 01/14/2024 9:13 AM EST [facility] Patient Education [facility] Work Phone: Patient referral [facility] Work Phone: ROUTINE, GR OUP B STREPTOCOCCUS BY PCR ROUTINE, GROUP B STREPTOCOCCUS BY PCR Microbiology Routine Supervision of high risk in third trimester ([facility]) 37 weeks gestation of ([facility]) 08/11/2024 10:31 AM EDT [facility] UA DIP, URINE (POC) UA DIP, URIN E (POC) Lab Routine Low back pain during in third trimester ([facility]) Ordered: 07/14/2024 [facility] Work Phone: Comment on above: Ordered: 07/14/2024 Urine culture [facility] URINE OB DIP B/O URINE OB DIP B/ O Lab Routine Supervision of high risk in third trimester (HCC) 37 weeks gestation of ([facility]) Ordered: 08/11/2024 [facility] Work Phone: Comment on above: Ordered: 08/11/2024 End: 05-13-2024 XR Shoulder - left 3 Views XR SHOULDER GENERAL 3V OR MORE AP/TRUE AP/OTHER LEFT Radiology Routine Acute pain of left shoulder 1 Occurrences starting 04/14/2023 until 05/13/2024 [facility] Work Phone: Comment on above: 1 Occurrences starting 04/14/2023 until 05/13/2024 Immunizations Immunization Date Immunization Notes Care Provider [facility] 06-13-2024 RHO(D) immune globul in- IV or IM Milly Singh MD Work Phone: [facility] 04-14-2024 influenza virus vacc ine, unspecified formulation Georgia Lino MD Work Phone: [facility] 08-15-2018 meningococcal polysaccharide (groups A, C, Y and W-135) diphtheria toxoid conjugate vaccine (MCV4P) Georgia Lino MD Work Phone: [facility] 07-23-2015 meningococcal oligosaccharide (groups A, C, Y and W-135) diphtheria toxoid conjugate vaccine (MCV4O) Georgia Lino MD Work Phone: [facility] 07-23-2015 tetanus toxoid, redu ayaka diphtheria toxoid, and acellular pertussis vaccine, adsorbed Dr. Kayleen Mckay Work Phone: [facility] 2007 diphtheria, tetanus toxoids and acellular pertussis vaccine, unspecified formulation Georgia Lino MD Work Phone: [facility] 2007 hepatitis A vaccine, pediatric/adolescent dosage, 2 dose schedule Georgia Lino MD Work Phone: [facility] 2007 measles, mumps and rubella virus vaccine Dr. Kayleen Mckay Work Phone: [facility] 2007 poliovirus vaccine, inactivated Georgia Lino MD Work Phone: [facility] [address] Kayleen Mckay Work Phone: [facility] 2006 hepatitis A vaccine, pediatric/adolescent dosage, 2 dose schedule Georgia Lino MD Work Phone: [facility] 04-28-2004 pneumococcal conjuga te vaccine, 7 valent Georgia Lino MD Work Phone: [facility] 07-30-2003 diphtheria, tetanus toxoids and acellular pertussis vaccine, unspecified formulation Georgia Lino MD Work Phone: [facility] 07-30-2003 poliovirus vaccine, inactivated Georgia Lino MD Work Phone: [facility] 07-30-[address] Kayleen Mckay Work Phone: [facility] 05-01-2003 haemophilus influenz ae type b conjugate and Hepatitis B vaccine Dr. Kayleen Mckay Work Phone: [facility] 05-01-2003 haemophilus influenz ae type b vaccine, PRP-T conjugate Georgia iLno MD Work Phone: [facility] 05-01-2003 hepatitis B vaccine, pediatric or pediatric/adolescent dosage Georgia Lino MD Work Phone: [facility] 05-01-2003 measles, mumps and rubella virus vaccine Dr. Kayleen Mckay Work Phone: [facility] 2002 diphtheria, tetanus toxoids and acellular pertussis vaccine, unspecified formulation Georgia Lino MD Work Phone: [facility] 2002 haemophilus influenz ae type b vaccine, PRP-T conjugate Georgia Lino MD Work Phone: [facility] 2002 pneumococcal conjuga te vaccine, 7 valent Georgia Lino MD Work Phone: [facility] 2002 diphtheria, tetanus toxoids and acellular pertussis vaccine, unspecified formulation Georgia Lino MD Work Phone: [facility] 2002 haemophilus influenz ae type b vaccine, PRP-T conjugate Georgia Lino MD Work Phone: [facility] 2002 pneumococcal conjuga te vaccine, 7 valent Georgia Lino MD Work Phone: [facility] 2002 poliovirus vaccine, inactivated Georgia Lino MD Work Phone: [facility] 2002 diphtheria, tetanus toxoids and acellular pertussis vaccine, unspecified formulation Georgia Lino MD Work Phone: [facility] 2002 haemophilus influenz ae type b vaccine, PRP-T conjugate Georgia Lino MD Work Phone: [facility] 2002 hepatitis B vaccine, pediatric or pediatric/adolescent dosage Dr. Kayleen Mckay Work Phone: [facility] 2002 pneumococcal conjuga te vaccine, 7 valent Georgia Lino MD Work Phone: [facility] 2002 poliovirus vaccine, inactivated Georgia Lino MD Work Phone: [facility] 2002 hepatitis B vaccine, pediatric or pediatric/adolescent dosage Dr. Kayleen Mckay Work Phone: [facility] Payers Date Payer Category Payer Private Health Insurance [id number] 2023 Self-pay [id number] 2023 Private Health Insurance [id number] 2023 Private Health Insurance [id number] 2002 Unknown [id number] 2002 Unknown [id number] 2002 Unknown [id number] Private Health Insurance [facility] [id number] Private Health Insurance [id number] Unknown [id number] Unknown [id number] 62 Unknown [id number] 62 Unknown [id number] 62 Unknown [id number] 62 Unknown [id number] 62 Unknown [id number] 62 Unknown [id number] 62 Unknown [id number] 62 Unknown [id number] 62 Unknown [id number] 62 Unknown [id number] 62 Unknown [id number] 62 Unknown [id number] 62 Social History Date Type Detail Facility Start: 05-25-2021 End: 07-06-2023 Tobacco smoking status RIIS Unknown if ever smoked [facility] Start: 07-12-2020 Non-smoker [facility] Start: 2002 Sex Assigned At Female [facility] Start: 04-13-2011 End: 11-15-2024 Tobacco smoking status NHIS Never smoked tobacco [facility] Work Phone: Start: 04-13-2011 Tobacco use and exposure Smokeless tobacco non-user [facility] Work Phone: Start: 04-14-2023 Alcohol intake Not Asked [facility] Start: 04-14-2023 End: 12-24-2023 History of Social function [facility] Start: 04-14-2023 End: 12-24-2023 Tobacco use panel [facility] Start: 02-04-2012 National Score (1-100), lower number is lower risk Not on file [facility] Start: 2002 Sex Assigned At Not on file [facility] Start: 12-24-2023 End: 11-14-2024 Alcoholic beverage intake Lifetime non-drinker (finding) [facility] Start: 12-07-2023 [facility] Start: 01-09-2024 Gender identity Identifies as female gender (finding) [facility] Start: 01-09-2024 Sexual orientation Heterosexual (negrita gutierrez) [facility] The thought of chyna norton myself has occurred to me Never [facility] Start: 06-15-2024 End: 06-16-2024 Sex Female (finding) [facility] NEGATED: Highlighted row [facility] Goals Date Patient Goal Desired Activity /State Personal health goal Personal health goal Functional Status Date Assessment Result Facility 10-21-2024 Total score [AUDIT-C] 0 10/22/19 25 10:20 AM EDT Sahara Landis MA [facility] 07-17-2024 Are you deaf, or do you have serious difficulty hearing No 07/17/2024 1:27 PM Ramona Suero RN No [facility] 07-17-2024 Are you blind, or do you have serious difficulty seeing, even when wearing glasses No 07/17/2024 1:27 PM Ramona Suero RN No [facility] 07-17-2024 Do you have serious difficulty walking or climbing stairs No 07/17/2024 1:27 PM Ramona Suero RN No [facility] 07-17-2024 Do you have difficul ty dressing or bathing No 07/17/2024 1:27 PM Ramona Suero RN No [facility] 07-17-2024 Because of a physica l, mental, or emotional condition, do you have difficulty doing errands alone such as visiting a physician's office or shopping No 07/17/2024 1:27 PM Ramona Suero RN No [facility] Mental Status Date Assessment Result Facility 08-24-2024 Cognitive function Level Of Cons ciousness Awake;Alert;Appropriate;Fol lows Commands [facility] Work Phone: 08-24-2024 Cognitive function Arousable To Voice/Nam e [facility] Work Phone: 07-17-2024 Because of a physica l, mental, or emotional condition, do you have serious difficulty concentrating, remembering, or making decisions No 07/17/2024 1:27 PM EDT Ramona Baker RN No [facility] Clinical Notes 03-28-2023 to 11-15-2024 Georgia Lino MD - 11/14/2024 2:13 PM RONALDOTFlaquita Romero APRN.STUDIO SET UP WORKER - 11/12/2024 11:30 AM EDTTelephone Encounter - Kori Fortune LPN - 10/24/2024 3:30 PM EDTPatient Instructions Note Date & Type Note Facility 11-15-2024 Discharge summary [facility] 11-14-2024 Note HNO ID: [id number] Author: GEORGIA LINO MD Service: ? Author [...] Living1 SAB0 IAB0 Ectopic0 Multiple0 Live Births1 Hairspring Truer History LMP: 11/11/2024 (Exact Date), Age at Menarche: Age at First : Age at Menopause: Hairspring Truer History Comments: Sexual Activity: Not Currently; Male [...] Take 50 mg by mouth once daily.) [id number] acid ( 19) 29 mg iron- 1 [...] Topics Alcohol use: Never Drug use: Never [facility] 11-14-2024 History of Present illness Narrative Stewart Zuniga is a 24 year old female who presents for problem visit control issues HPI: Wants to go back to a combo OCP. Currently on POP and having irregualr bleeding. Was previously on [facility] History Gravida1 Para1 Term1 Preterm0 AB0 Living1 SAB0 IAB0 Ectopic0 Multiple0 Live Births1 Hairspring Truer History LMP: 11/11/2024 (Exact Date), Age at Menarche: Age at First : Age at Menopause: Hairspring Truer History Comments: Sexual Activity: Not Currently; Male [...] Take 50 mg by mouth once daily.) [id number] acid ( 19) 29 mg iron- 1 [...] Drug use: Never documented in this encounter [facility] 11-12-2024 History of Present illness Narrative URGENT [...] Procedures Cecille Forrest NP student TEACHING PROVIDER (Physician/PA/PET STORE MERCHANDISER) NOTE OF PERSONAL INVOLVEMENT IN CARE: I have personally seen and examined the patient and performed the medical decision-making components. I have reviewed the Advanced Practice Registered Nurse (PET STORE MERCHANDISER) Student's documentation and verified the findings in the note as written. Any additions or changes are noted in bold/italics. Signature: Flaquita Romero Date: 11/12/2024 Time: 12:38 PM documented in this encounter [facility] 11-12-2024 Note HNO ID: [id number] Author: FLAQUITA ROMERO APRN.IVETH Service: ? Author [...] Procedures Cecille Forrest NP student TEACHING PROVIDER (Physician/PA/PET STORE MERCHANDISER) NOTE OF PERSONAL INVOLVEMENT IN CARE: I have personally seen and examined the patient and performed the medical decision-making components. I have reviewed the Advanced Practice Registered Nurse (PET STORE MERCHANDISER) Student's documentation and verified the findings in the note as written. Any additions or changes are noted in bold/italics. Signature: Flaquita Romero Date: 11/12/2024 Time: 12:38 PM [facility] 10-24-2024 Telephone encounter Note Patient notified. Ultrasound scheduled [facility] 10-24-2024 Miscellaneous Notes Patient notified. Ultrasound scheduled [...] in PM and bleeding has not gotten senior quality technician with taking med BID. Patient reports changing her pad every hour currently and is c/o feeling nauseated. Patient is getting today and asking for recommendations to stop bleeding. documented in this encounter [facility] 10-24-2024 Telephone encounter Note I am so sorry I was hoping taking the norethindrone would keep it at bay. She can take aygestin 5 mg every hr until bleeding slows, up to 5 doses today then for 3 day.s US ordered, schedule in next 2 weeks. Genesis Martinez MD T [facility] 10-24-2024 Telephone encounter Note Patient seen at [...] in PM and bleeding has not gotten senior quality technician with taking med BID. Patient reports changing her pad every hour currently and is c/o feeling nauseated. Patient is getting today and asking for recommendations to stop bleeding. T [facility] 10-21-2024 Instructions Genesis Martinez MD - 10/21/2024 [...] of your norethindrone has been sent to [facility] in [place]. - Continue with your scheduled neurology appointment in February for further headache evaluation. - 2 prescriptions were sent for your headache, you may use them the same day or trial both to see which one helps more. documented in this encounter [facility] 10-21-2024 Note HNO ID: [id number] Author: GENESIS MARTINEZ MD Service: ? Author Type: Physician Type: Progress Notes Filed: 10/21/2024 11:10 Note Text: Obstetrics and Gynecology [place] WATER/WASTEWATER ENGINEER Visit Subjective Recording using [email or web address].TV software for draft documentation of the visit was discussed with the patient/authorized insurance claims representative; all questions welcomed and answered. Patient/authorized insurance claims representative agreed to proceed CHIEF COMPLAINT: The [...] Living1 SAB0 IAB0 Ectopic0 Multiple0 Live Births1 Hairspring Truer History LMP: 10/10/2024 (Exact Date), Age at Menarche: Age at First : Age at Menopause: Hairspring Truer History Comments: Sexual Activity: Not Currently; Male [...] Take 1.5 tablets by mouth once daily. [id number] acid ( 19) 29 mg iron- 1 [...] discussed with the Patient or Patient's Authorized Picture Booker. As applicable, any other physician, advance practice provider, medical student, or other health professional student that will be observing or involved in the sensitive examination for educational or training purposes was discussed with the Patient or Authorized Picture Booker. The Patient or Authorized Picture Booker has agreed to proceed with the sensitive examination. (Sensitive examination includes inspection and/or palpation of the breasts, pelvis, prostate and anorectal regions). PHYSICAL EXAM: BP 110/74 Wt 144 lb (65.3kg) LMP 10/10/2024 GENERAL: Pleasant; in no apparent distress ABDOMEN: soft, non-tender, no masses, no hernia , incision clean, dry and intac (more content not included)... [facility] 10-21-2024 History of Present illness Narrative Images from the original note were not included. Obstetrics and Gynecology [place] W[employer]/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 Patient/authorized insurance claims representative agreed to proceed CHIEF COMPLAINT: The [...] Living1 SAB0 IAB0 Ectopic0 Multiple0 Live Births1 Hairspring Truer History LMP: 10/10/2024 (Exact Date), Age at Menarche: Age at First : Age at Menopause: Hairspring Truer History Comments: Sexual Activity: Not Currently; Male [...] Take 1.5 tablets by mouth once daily. [id number] acid ( 19) 29 mg iron- 1 [...] discussed with the Patient or Patient's Authorized Picture Booker. As applicable, any other physician, advance practice provider, medical student, or other health professional student that will be observing or involved in the sensitive examination for educational or training purposes was discussed with the Patient or Authorized Picture Booker. The Patient or Authorized Picture Booker has agreed to proceed with the sensitive examination. (Sensitive examination includes inspection and/or palpation of the breasts, pelvis, prostate and anorectal regions). PHYSICAL EXAM: BP 110/74 Wt 144 lb (65.3kg) LMP 10/10/2024 GENERAL: Pleasant; in no apparent distress ABDOMEN: soft, non-tender, no masses, no hernia , incision clean, dry and intact, well healed : - PELVIC: external genitalia normal, normal Bartholin's glands, urethra, Latty's glands, no vulvar lesions, no cervical lesions, [...] Drug use: Never documented in this encounter [facility] 10-20-2024 Telephone encounter Note Patient scheduled [facility] 10-20-2024 Miscellaneous Notes Patient scheduled Left message to call office for appointment yes needs appointment next available. Genesis Martinez MD Does patient need an appointment to discuss? C/s was 08/24/[address] Lino documented in this encounter [facility] 10-20-2024 Telephone encounter Note Left message to call office for appointment [facility] 10-20-2024 Telephone encounter Note yes needs appointment next available. Genesis Martinez MD [facility] 10-20-2024 Telephone encounter Note See other 10/20 mychart message encounter. Sharon Yusuf RN [facility] 10-20-2024 Miscellaneous Notes See other 10/20 mychart message encounter. Sharon Yusuf RN documented in this encounter [facility] 10-20-2024 Telephone encounter Note Does patient need an appointment to discuss? C/s was 08/24/[address] Lino [facility] 10-13-2024 Note HNO ID: [id number] Author: ANGIE OCASIO APRN.STUDIO SET UP WORKER Service: ? Author Type: Nurse Practitioner Type: Progress Notes Filed: 10/13/2024 13:19 Note Text: Obstetrics and Gynecology [place] WATER/WASTEWATER ENGINEER Visit Subjective Recording using IRIS.TV software for draft documentation of the visit was discussed with the patient/authorized insurance claims representative; all questions welcomed and answered. Patient/authorized insurance claims representative agreed to proceed CHIEF COMPLAINT: The [...] Living1 SAB0 IAB0 Ectopic0 Multiple0 Live Births1 Hairspring Truer History LMP: 10/09/2024 (Exact Date), Age at Menarche: Age at First : Age at Menopause: Hairspring Truer History Comments: Sexual Activity: Yes; Male Contraception: [...] Take 1.5 tablets by mouth once daily. tu684-tvov-tprup acid ( 19) 29 mg iron- 1 mg Take 1 tablet by mouth once daily. metoprolol succinate ER (TOPROL XL) 25 mg 24 hr tablet Take by mouth. norethindrone (AYGESTIN) 5 mg tablet Take 1 tablet by mouth once daily. No current facility-administered medications for this visit. [5] Allergies Allergen Reactions Adhesive Hives Lactose GI Upset [facility] 10-13-2024 History of Present illness Narrative Images from the original note were not included. Obstetrics and Gynecology [place] WATER/WASTEWATER ENGINEER Visit Subjective Recording using IRIS.TV software for draft documentation of the visit was discussed with the patient/authorized insurance claims representative; all questions welcomed and answered. Patient/authorized insurance claims representative agreed to proceed CHIEF COMPLAINT: The [...] Living1 SAB0 IAB0 Ectopic0 Multiple0 Live Births1 Hairspring Truer History LMP: 10/09/2024 (Exact Date), Age at Menarche: Age at First : Age at Menopause: Hairspring Truer History Comments: Sexual Activity: Yes; Male Contraception: [...] Take 1.5 tablets by mouth once daily. hx787-ltna-vzatw acid ( 19) 29 mg iron- 1 mg Take 1 tablet by mouth once daily. metoprolol succinate ER (TOPROL XL) 25 mg 24 hr tablet Take by mouth. norethindrone (AYGESTIN) 5 mg tablet Take 1 tablet by mouth once daily. No current facility-administered medications for this visit. [5] Allergies Allergen Reactions Adhesive Hives Lactose GI Upset documented in this encounter [facility] 10-06-2024 Note HNO ID: [id number] Author: AMILCAR MÉNDEZ APRN.CNM Service: ? Author Type: Lead Section Supervisor Type: Progress Notes Filed: 10/06/2024 16:47 Note [...] Take 1.5 tablets by mouth once daily. pv974-ukia-uruab acid ( 19) 29 mg iron- 1 [...] or vision changes- notify office BP stable care consultant Support provided Possible consult to headache clinic Amilcar Méndez APRN.CNM [facility] 10-06-2024 History of Present illness Narrative [...] Take 1.5 tablets by mouth once daily. bu731-xhsq-tfgyt acid ( 19) 29 mg iron- 1 [...] or vision changes- notify office BP stable care consultant Support provided Possible consult to headache clinic Amilcar Méndez APRN.CNM documented in this encounter [facility] 09-29-2024 Instructions Naren Jc APRN.CNP - 09/29/2024 9:21 AM EDT Psychotherapy Services at [facility] Call Behavioral Health Access Line at [phone] to schedule Individual psychotherapy In-person or virtual Wait time for first evaluation may be 12 or more weeks. Wait list spots may be available. Due to the high volume of patients this option is recommended if you are looking for short term acute symptom coping strategies. 0-539-3-QYGV1AHTP - [place] Maternal Mental Health Hotline If you are in suicidal crisis, please call or text 5-353-363-TALK ( ) or visit the National Suicide Prevention Lifeline website. mchb.[facility] hospital[facility].gov If you are in crisis, call 911 or go to your nearest Emergency Department Here are some links for wonderful Providers here in the community and surrounding areas. Do not hesitate to contact their offices, many are offering virtual visits during this time. Psychotherapy Services outside of [facility] Support International Online Provider Directory https://Satin Creditcare Network Limited (SCNL).PhoneAndPhone/ - can assist in finding providers in your area that might be more extensive then the list below. [facility] - [place], [place] [address] [place], [facility]691 [facility] [address] [place] [address] [facility] [address] [place] [address] [facility] [address] [place], [place] [id number] Pedro Ferreira MD [address] [place] [address] [facility] [address] [facility], [address] [place] [address] [facility] [address] [place] [address] [facility] [place] / [place] [phone]/ [phone] Sharonda Mathur [address] [facility] [phone] Aves of Counseling and Mediation Cindy / Thalia [phone] [facility] [address] [place] [address]/ [facility] [phone] NATALEE Flores, TI Bump and Beyond Family Therapy Workshops, telehealth and at home visits. [phone] [facility] counseling [place] 20 locations [place], [place], [place], [place], [place], [place], [place], [facility], [place], [place], [place], [place], [place], [place], [facility], [place], [place] ,[facility], [place], [place],[facility], [facility] [place], [place], [facility], [facility], [place] www.gunnison valley hospitalAudioEye [phone] Psychotherapy resources outside of [facility] are listed below [facility] Web: https://www.DevonWay/ Support International Online Provider Directory https://SNUPI Technologies/ [facility] Counseling https://broadbandchoices/ Kid Bunch for Behavioral Health and Wellness Web: https://GeoDigital/ StackIQ for Effective Living Web: https://University of MichiganlivingAllegory Law/ LifeStance Web: https://LiquiGlide.PhoneAndPhone/location/[facility]/[place]/ Signature [facility] Web: https://www.[facility].org/ [facility] Web: https://POI.org/ Recovery Resources Mental health and substance abuse help Web: https://www.Cyber Solutions Internationals.Jiubang Digital Technology Co. & RESOURCES Support International Direct peer support and connection to professional resources Non-Emergency Helpline Phone: / Text: [phone] Web: https://www..net/ Online Provider Directory: https://SNUPI Technologies/ Online Support Meetings: https://www..net/get-help /zfk-wooewk-bkmqdsi-meetings/ [facility] Aide Services Web: https://www.Berggi/ MotherToBaby Expert information on medication use during and Text: [phone] Web: https://motherJimubox.org/ NATIONAL REGISTRY FOR PSYCHIATRIC MEDICATIONS Currently studying the safety of antidepressants, ADHD medications and atypical antipsychotics taken during TO PARTICIPATE CALL TOLL-FREE: Web: https://womensmentalhealth.org/rese arch/pregnancyregistry/ Support Groups: [facility]- Follow on facebook Baby Bistro support group led by [facility] department [facility] Mamas - Support Group [facility].org The POEM support group [phone] Www.poemonline.org Follow on facebook - DAINA mcclelland Online support meetings PSI https://www..net/get-help /hcc-gbaobn-nsnyyrz-meetings/ [facility] mommy and me virtual support group 11:30-1pm Support for mothers and new babies and toddlers [place] childbirth education: Childbirth @[facility].org or call [phone] CRISIS: CRISIS HOTLINE [phone], 911 or go to the nearest . [facility] [phone] / [facility] [phone] https://www.[facility].org Crisis text line text the word HOME to 950362 [facility] [address] asif [address] [facility] [address] www.Blowtorch Zenaida Carrizales clinical counseling [address] [address] www.iOnRoadriFoodie Media Network.PhoneAndPhone Holding space psychotherapy Ana Chao SCOOP FILLER AIRPLANE RENTAL CLERK-S [address] [facility] www.Cloud Content [phone]/ [place] [phone] They all offer virtual. All work with trauma Support groups Online support meetings PSI https://www..net/get-help /yha-myfydj-icszzfy-meetings/ Here are the support groups they offer: Support of parents of 1 to 4 years old children POEM ( Outreach and Encouragement for Moms) offers free support for mothers experiencing depression, anxiety, and other mood and anxiety disorders. Masks are recommended but not required. No pre-registration required. Babies in arms welcome. meetings now take place on the and Sunday of each month Location: [facility] [address] [place] [address] Room 122 (library room) 7-8:00 p.m. When you enter the [facility] parking lot off of [address] the entrance door closest to our meeting room is on the front of the building toward the right. For those who are more comfortable with a virtual platform, POEM offers online support group options several days of the week. To register for an online group or to find out more about POEM, website at: https://mhaohio.org/get-help/matern vx-vskrxm-wveotw/poem-services/ offer a confidential helpline: private Facebook group is called DAINA Mcclelland Here are the groups they offer: Traumatic childbirth resources: Http://pattch.org/ https://www.Reg TechnologiesangelAlton Lane .PhoneAndPhone/ Name Location (s) Phone # (s) Services Website [facility] [address] [place], [place] - [phone]; [address] [phone] In-Person GROUPS INDIVIDUAL THERAPY MATERNAL-INFANT MENTAL HEALTH MEDICATION MANAGEMENT PLAY AND ART THERAPY TELETHERAPY https://www.DevonWay/ser vices/ [facility] DOTSON? [address] [place], [place] [address] ? [address], [address] [place], [place] [address] ? PALACIO [address] [place], [place] [address]? Grief Support Groups Individual Grief Counseling Spiritual Care Memorial Events https://alban.[facility] .org/grief-services [facility] [address] [place], [place] [address]; ; Email: elie@Moat Women's Mental Health; Couples Counseling; Trauma (EMDR); Stress Management; Mood and Anxiety Related Disorders- and much more https://www.KTM Advance/ LifeStance Numerous as they have contract providers: access website to find specific providers near you Counseling including CBT and EMDR as well as many more modalities; Medication Management; Telehealth and In-Person https://ResQ™ Medical/ AdventureDrop [facility]al [facility] and Wellness [address] [place], [place] [address]; [phone] Personal, Family and Group Therapy; Psychological Testing and Diagnosis; Medication Management; Life and Career Coaching; Psychoanalysis; Literacy Testing; Yoga and Meditation https://GeoDigital/ HealthQx [facility] [address] [facility] [address], [place] [address] [address] ; [address] [place] [address] [address] [place] [address]; Office # for both sites: Individual and Couples Counseling https://www.The Etailers.PhoneAndPhone/arden ymentinsurance.html OCD & Anxiety [facility] [address] [facility], [address], [place] [address]; Specialize in Cognitive-Behavioral Therapy (CBT) for the treatment of anxiety disorders across the lifespan. TELEHEALTH ONLY. https://ocdandanxietycentSuperSonic ImagineOctonotco/faqs [facility] [address] [facility] [address]th [place], [address] [place] [address] [facility], [facility], [address] [place] [address] [facility] [place], [address] [place] [address] [place], [place], [address] [address], [address] [address] [place], [address] [place] [address] [place], [address] Transportation Services To minimize patient barriers, [facility] provides transportation services to patients who qualify. If you are unable to get to your appointment at any of our facilities, please let us know. Need help now? Stop by one of our walk-in clinics to establish behavioral health care. Counseling Indvidual, Group, Couples and Family Counseling and EMDR. Medication Management Case Management benefits applications housing assistance Substance abuse treatment Medication assisted treatment https://www.[facility].org/ mental-health/ [facility] OFF[facility] AT [facility] [address] [place] [address] [facility] OFFICE [address] [place] [address] [facility] OFFICE [address] [place] [address] [place] OFFICE (at [facility]) [address] [place] [address] [facility] SYRINGE EXCHANGE PROGRAM & HIV SCREENING [address] [place] [address] [facility] [facility] EXCHANGE PROGRAM [address] [place] [address] Behavioral Health Urgent Care: [facility] Sites Counseling Indvidual and Group Medication Management Case Management benefits applications housing assistance Substance abuse treatment Medication assisted treatment Employment Services/ Job Training https://theHighTower AdvisorsnjWistone.org/ Recovery Resources [address] [place], [place] [address]: P: [phone] [address] [facility], [address], [place], [place] [address] P: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06-13-2025 History of Present illness Narrative* Sharonda Bustamante - 08/15/2024 8:42 AM EDT POPULATION HEALTH NAVIGATION OUTREACH Action/FYI Spoke to patient added chief compressor station engineer to OB provider field Reason for Outreach Medicaid OB/Peds Care Gaps due: N/A Patient Contacted: Spoke to patient/parent/or legal guardian Patient identified by name and : Yes Medicaid OB/Peds actions taken: /Flight Attendant/Inflight Supervisor added Navigation Signature: Sharonda Bustamante Population Health Navigator August 15, 2024 8:43 AM documented in this encounterSam[facility]06-13-2025 NotePatient Outreach (NETNAV) STEWART ZUNIGA ([id number]) 4 F Date Time Provider Department 08/15/24 SHARONDA BUSTAMANTE During your visit today, we recorded the following information about you: Sharonda Bustamante 08/15/2024 8:44 AM Signed POPULATION HEALTH NAVIGATION OUTREACH Action/FYI Spoke to patient added chief compressor station engineer to OB provider field Reason for Outreach Medicaid OB/Peds Care Gaps due: N/A Patient Contacted: Spoke to patient/parent/or legal guardian Patient identified by name and : Yes Medicaid OB/Peds actions taken: [place]/Flight Attendant/Inflight Supervisor added Navigation Signature: Sharonda Bustamante Population Health [...] 1 tablet by mouth once daily. - nu897-wzpl-zljyo acid ( 19) 29 mg iron- 1 [...] 07/17/2024 Encounter Status:Closed by SHARONDA BUSTAMANTE on 08/15/24[facility] 08-12-2024 Telephone encounter Note* Telephone Encounter - Georgia Wren RN - 08/12/2024 12:55 PM EDT Patient notified. Voiced understanding. Georgia Wren RN [facility]06-10-2025 Miscellaneous Notes* Telephone Encounter - Georgia Wren [...] you. Georgia Wren RN documented in [facility] encounterSam[facility]06-10-2025 Telephone encounter Note * Telephone Encounter - Ambreen Romero MD - 08/12/2024 12:09 PM EDT The pelvic pressure with standing is a common occurrence. I would recommend rest and hydration. If having regular contractions, red bleeding beyond 24 hours or LOF should go to L&D. Ambreen Romero MD [facility] Work Phone: 1(936) 430-470406-10-2025 Telephone encounter Note* Telephone Encounter - Georgia [...] her go to L&D? Thank you. Georgia Highman, RN [facility]06-09-2025 Progress note* Quick Notes - Kahlil Escobar [...] STREPTOCOCCUS BY PCR 37 weeks gestation of ([facility]) Kick counts and labor reviewed RTO weekly Vertex confirmed on ultrasound Orders: URINE OB DIP B/O ROUTINE, GROUP B STREPTOCOCCUS BY PCR Kahlil Marina MD [facility] Work Phone: 1(322) 967-307606-09-2025 Miscellaneous Notes* Quick Notes - Kahlil Escobar [...] STREPTOCOCCUS BY PCR 37 weeks gestation of ([facility]) Kick counts and labor reviewed RTO weekly Vertex confirmed on ultrasound Orders: URINE OB DIP B/O ROUTINE, GROUP B STREPTOCOCCUS BY PCR Kahlil Marina MD documented in this encounter[facility]06-[facility]-2025 Instructions* Patient Instructions* Shelli Chapin MA - 08/11/2024 10:10 AM EDT SEQUENTIAL SCREENINGS [facility] offers sequential screenings for women who [...] testing. It will require an appointment withour coroner forensic technician. This is not an ultrasound performed [...] the above symptoms, contact our office at [phone] and ask to speak with anurse. After hours, you can call doctors registry at [phone] OR call [facility] at [phone] ask to have the doctor sales receptionist paged. If you consider this an emergency, dial 9-1-5 or go to your nearest emergency department. NEED HELP? Are you dealing with a violent or abusive relationship? Are you a victim of rape or sexual assult? Call [facility] ([place]) 24 hour Crisis Hotline: 721.727.5130 or 811-256-2737. MANUAL Your Guide to a Healthy manual is now on-line. Visit [email or web address] to download your free copy documented in this encounterSam[facility]itan Hospital06-05-2025 Evaluation note* Diagnosis Onset Date Resolution Status Admit Date 36 weeks gestation of acut e August 07, 2024 4:31pm Abdominal trauma acute August 4:31pm Rh negative state in antepar naima period resolved August 07, 2024 4 :31pm S/P acute August 22, 2024 7:18pm 39 weeks gestation of reso lved August 22, 2024 7:18pm Elective induction of labor planned resolved August 22, 2024 7:18pm Rh negative state in antepar naima period resolved August 22, 2024 7:18pm [facility] Work Phone: 1([phone]) 448-770706-05-2025 Telephone encounter Note* Telephone Encounter - Mathew Gaviria RN - [...] voiced understanding. L&D notified. Mathew Gaviria RN [facility]06-05-2025 Miscellaneous Notes* Telephone Encounter - Mathew Gaviria [...] notified. Mathew Gaviria RN documented in this encounterSam[facility]05-27-2025 Progress note* Quick Notes - Georgia Lino [...] nontender ASSESSMENT/PLAN: 1. 35 weeks gestation of ([facility]) - ICD9: V22.2, ICD10: Z3A.35 (primary diagnosis) PTL precautions 2. Supervision of high risk in third trimester ([facility]) - ICD9: V23.9, ICD10: O09.93 3. Need for vaccination - ICD9: V05.9, ICD10: Z23 - TDAP VACCINE, AGE 7+ YR (ADACEL, BOOSTRIX) Georgia Lino MD [facility]05-27-2025 Miscellaneous Notes* Quick Notes - Georgia Lino [...] nontender ASSESSMENT/PLAN: 1. 35 weeks gestation of ([facility]) - ICD9: V22.2, ICD10: Z3A.35 (primary diagnosis) PTL precautions 2. Supervision of high risk in third trimester ([facility]) - ICD9: V23.9, ICD10: O09.93 3. Need for vaccination - ICD9: V05.9, ICD10: Z23 - TDAP VACCINE, AGE 7+ YR (ADACEL, BOOSTRIX) Georgia Lino MD documented in this encounterSam[facility]05-22-2025 NoteHNO ID: [id number] Author: GEORGIA LINO MD Service: ? Author Type: Physician Type: Progress Notes Filed: 07/24/2024 20:15 Note Text: NST SUMMARY PROVIDER ASSESSMENT AND INTERPRETATION Indications for NST: Decreased Movement Baseline: 145 Variability: Moderate Accelerations: Present 15 X 15 Decelerations: None Interpretation: Reactive SIGNATURE: Georgia Lino, [facility]05-15-2025 Telephone encounter Note* Telephone Encounter - Genesis [...] as scheduled or prn. Genesis Martinez MD [facility] Work Phone: 1(201) 238-416805-15-2025 Miscellaneous Notes* Telephone Encounter - Genesis Martinez [...] Pt calls back stating she went to [facility]. Was told she was 1cm dilated; [...] any further recommendations areneeded. Juju You RN * Telephone Encounter - Georgia Wren [...] Offered patient a visit here, go to [facility] (risk that baby could be transported if she delivers) or go to [place]. For peace of mind, patient said, she is going to [place]. JEZ Wren RN documented in this encounterSamaritan Hospital05-15-2025 Telephone encounter Note * Telephone Encounter - Juju You RN - 07/17/2024 2:17 PM EDT Pt calls back stating she went to [facility]. Was told she was 1cm dilated; [...] any further recommendations areneeded. Juju You RN [facility]05-15-2025 NoteHNO ID: [id number] Author: ALEJANDRO MATUTE DO Service: Obstetrics Author Type: Resident Type: Plan of Care Filed: 07/17/2024 14:37 Note Text: Prior to discharge, the following Plan of care discussed with: Provider, RN, Patient. Cervical exam: closed. CL US: 4.43, 4.75, 4.75cm. Schubert: irregular contractions. Overall reassuring with low suspicion [...] Dept Phone 07/22/2024 9:50 AM GEORGIA LINO [phone] 07/29/2024 11:10 AM [place] LINO [phone] 08/22/2024 4:30 PM AMILCAR MÉNDEZ [phone] 08/29/2024 4:30 PM AMILCAR MÉNDEZ [phone] Precautions: OB Precautions: increase in contractions vs gushes of fluid Discussed with primary Ob Provider/Group: Dr. Clemencia Matute DO [facility] NoteHNO ID: [id number] Author: JARRETT KEYES MD Service: Obstetrics Author [...] found under the Get Images tab in Epic. SIGNATURE: Genesis Byrd DO PATIENT NAME: Stewart Zuniga DATE: July 17, 2024 TIME: 1:21 PM PAGER/CONTACT #:[facility]05-15-2025 NoteHNO ID: [id number] Author: JARRETT KEYES MD Service: Obstetrics Author [...] She was previously assessed at [facility], where they completed prolonged monitoring and [...] was discussed with the patient or authorized insurance claims representative. The patient or authorized insurance claims representative has agreed to proceed with the [...] 1234 : Genesis Byrd DO) MONITORING/ASSESSMENT: 145/moderate/+Accels/-Decels Schubert: Irregular, irregular NST Reactive Ultrasound: See formal [...] 17, 2024 TIME: 12:19 PM [facility]CON[facility]23[facility] Note HNO ID: [id number] Author: JARRETT KEYES MD Service: Obstetrics Author Type: Physician Type: Procedures Filed: 07/17/2024 12:17 Note Text: OBSTETRICS NST SUMMARY SERVICE DATE: July 17, 2024 The patient is a 24 year old female, , who is at 33w6d with an JEM of 08/29/2024, by Last Menstrual Period dating method. NST OBJECTIVE FINDINGS PER NURSE: Start Time: 1138 (07/17/24 1158 : Ramona Baker RN) Complete Time: 1158 (07/17/24 1158 : Ramona Baker RN) Indications: Other: Comment (triage pt) (07/17/24 1158 : Ramona Baker RN) Patient Reason For: monitor baby (07/17/24 1158 : Ramona Baker, PEACE) NST Explanation: Procedure Explained, Monitor Explained, Verbalizes Understanding (07/17/24 1158 : Ramona Baker, [place]ACE) Acoustic Stimulator: No (07/17/24 1158 : Ramona Baker, PEACE) Interventions: MONITORING/ASSESSMENT: Baseline: 145 bpm (07/17/24 1158 : Ramona Baker, PEACE) Variability: Moderate (6-25 bpm) (07/17/24 1158 : Ramona Baker, PEACE) Accelerations: Present (07/17/24 1158 : Ramona Baker, PEACE) Decelerations: Decelerations: None (07/17/24 1158 : Ramona Baker, PEACE) Contractions: Irregular (07/17/24 1158 : Ramona Baker, PEACE) Frequency: x1 (07/17/24 1158 : Ramona Baker, PEACE) Above information forwarded to Dr. Keyes (07/17/24 1158 : Ramona Baker RN) for final review and interpretation. SIGNATURE: Ramona Baker RN PATIENT NAME: Stewart Zuniga DATE: July 17, 2024 TIME: 11:59 AM PROVIDER INTERPRETATION: Reactive SIGNATURE: Jarrett Keyes MD DATE: July 17, 2024 TIME: 12:17 [facility]05-15-2025 Telephone encounter Note* Telephone Encounter - [...] Offered patient a visit here, go to [facility] (risk that baby could be transported if she delivers) or go to [place]. For peace of mind, patient said, she is going to [place]. JEZ Wren RN [facility]05-14-2025 Telephone encounter Note* Telephone Encounter - Juju You RN - 07/16/2024 12:02 PM EDT Left message for patient to call office & advised Pt that Frodiot message was sent by Dr. Genesis Martinez. Juju You RN [facility]05-14-2025 Miscellaneous Notes* Telephone Encounter - Juju You RN - 07/16/2024 12:02 PM EDT Left message for patient to call office & advised Pt that [employer] message was sent by Dr. Genesis Martinez. Juju You RN * Telephone Encounter - Genesis Martinez MD - 07/16/2024 11:45 AM EDT offer appointment end of day w/ CP. Genesis Martinez MD * Telephone Encounter - Georgia Wren RN - 07/16/2024 11:02 AM EDT 33w5d Next OB visit is 07/25 [facility] Telephone encounter Note * Telephone Encounter - Genesis Martinez MD - 07/16/2024 11:45 AM EDT offer appointment end of day w/ CP. Genesis Martinez MD [facility] Work Phone: 1(149) 892-817105-14-2025 Telephone encounter Note* Telephone Encounter - Georgia Wren RN - 07/16/2024 11:02 AM EDT 33w5d Next OB visit is 07/25 [facility]05-13-2025 Telephone encounter Note* Telephone Encounter - Ambreen Romero MD - 07/15/2024 1:26 PM EDT Noted & agree Ambreen Romero MD [facility] Work Phone: 1(262) 763-994005-13-2025 Miscellaneous Notes* Telephone Encounter - Ambreen Romero [...] her Toprol last night. Spoke with provider sales receptionist and patient instructed to go to ER if she feels symptoms are not tolerable as she has been cleared from an obstetrical stand point. Patient is agreeable to plan. Mathew Gaviria RN * Telephone Encounter - Sharno Yusuf RN - 07/15/2024 12:36 PM EDT Attempted to call patient. Unable to leave message because mailbox is full Sharon Yusuf RN documented in [facility] encounterSam[facility]05-[facility]-2025 Telephone encounter Note * Telephone Encounter - [...] her Toprol last night. Spoke with provider sales receptionist and patient instructed to go to ER if she feels symptoms are not tolerable as she has been cleared from an obstetrical stand point. Patient is agreeable to plan. Mathew Gaviria RN [facility]05-13-2025 Telephone encounter Note* Telephone Encounter - Sharon Yusuf RN - 07/15/2024 12:36 PM EDT Attempted to call patient. Unable to leave message because mailbox is full Sharon Yusuf RN [facility]05-13-2025 Telephone encounter Note* Telephone Encounter - Nacho Kwan RN - 07/15/2024 11:41 AM EDT Attempted to reach patient. Went to . Left message advising patient to go to the ED. Nacho Kwan RN [facility]05-13-2025 Miscellaneous Notes* Telephone Encounter - Nacho Kwan RN - 07/15/2024 11:41 AM EDT Attempted to reach patient. Went to . Left message advising patient to go to the ED. Nacho Kwan RN * Telephone Encounter - Maribel Joaquin - 07/15/2024 11:20 AM EDT July 15, 2024 Patient Contact Number: [phone] (home) [phone] (cell) Patient last seen within the last year: Yes Reason for Call: Dizziness and Other Issue: Pt is 33.5 weeks . States she experience having contractions and went to local ED ([facility]) yesterday and today and was sent home. States her HR is high, she has dizziness and sees stars, and resulting in contractions. Please advise, patient is concerned. Thank you, Maribel Joaquin, Doug documented [facility]05-[facility]-2025 Telephone encounter Note * Telephone Encounter - Maribel Joaquin - 07/15/2024 11:20 AM EDT July 15, 2024 Patient Contact Number: [phone] (home) [phone] (cell) Patient last seen within the last year: Yes Reason for Call: Dizziness and Other Issue: Pt is 33.5 weeks . States she experience having contractions and went to local ED ([facility]) yesterday and today and was sent home. States her HR is high, she has dizziness and sees stars, and resulting in contractions. Please advise, patient is concerned. Thank you, Maribel Joaquin, Admin [facility]05-12-2025 History and physical note [facility] Medical Records Department [address] [place] [address] OB Triage Physician Note 07/14/24 1630 MR#: [id number] Acct: [id number] Name: STEWART ZUNIGA Rep #:[id number] : 2000 24 From: Milly Singh DO PCP: Care Physician,No Primary Status :REG CLI Y Location: [place] [address]1 HPI - General General Date of Admission: 07/14/24 Date of Service: 07/14/24 Chief Complaint: ctx's HPI Narrative STEWART ZUNIGA, is a 24 F who presents from the office with ctx's. Improved after PO hydration. Spotting yesterday and no bleeding since. No LOF. No urinary symptoms of changes in bowel movements. [facility] Medical History Physical exam, pre-employment [...] home. 07/14/24 1634 DO> Date _ Milly Wiswell DO Cosigner Signature (if applicable): Date CC: Dr. Milly Singh DO; No Primary Care Physician ~ Signed [facility]05-12-2025 NoteHNO ID: [id number] Author: AMILCAR MÉNDEZ APRN.CNM Service: ? Author Type: Lead Section Supervisor Type: Progress Notes Filed: 07/14/2024 14:08 Note [...] SENT TO [facility] for extended monitoring SIGNATURE: Amilcar Méndez [facility] History of Present illness Narrative* Amilcar [...] SIGNATURE: Amilcar Méndez APRN.CNM documented in this encounterSam[facility]05-12-2025 Progress note* Quick Notes - Amilcar Méndez [...] No apparent distress Abd: Gravid, non tender WATER/WASTEWATER ENGINEER: SSE - cervix closed, no active bleeding. [...] hydration, and possible steroid injection - call person provided notified Amilcar Méndez APRN.CNM [facility]05-12-2025 Miscellaneous Notes* Quick Notes - Amilcar Méndez [...] No apparent distress Abd: Gravid, non tender WATER/WASTEWATER ENGINEER: SSE - cervix closed, no active bleeding. [...] hydration, and possible steroid injection - call person provided notified Amilcar Méndez APRN.CNM documented in this encounterSamaritan Hospital05-12-2025 Instructions* Patient Instructions* Shantanu Gordon MA - 07/14/2024 12:57 PM EDT SEQUENTIAL SCREENINGS The [facility] offers sequential screenings for women who [...] testing. It will require an appointment withour coroner forensic technician. This is not an ultrasound performed [...] the above symptoms, contact our office at [phone] and ask to speak with anurse. After hours, you can call doctors registry at [phone] OR call [facility] at [phone] ask to have the doctor sales receptionist paged. If you consider this an emergency, dial 9-1-1 or go to your nearest emergency department. NEED HELP? Are you dealing with a violent or abusive relationship? Are you a victim of rape or sexual assult? Call [facility] ([place]) 24 hour Crisis Hotline: 396.630.3212 or 277-319-0462. MANUAL Your Guide to a Healthy manual is now on-line. Visit [email or web address] to download your free copy documented in this encounterSamaritan Hospital05-12-2025 Telephone encounter Note * Telephone Encounter - [...] stronger. Scheduled Pt with SW at 1pm. Jjuu You RN [facility]05-12-2025 Miscellaneous Notes* Telephone Encounter - Juju You [...] Scheduled Pt with SW at 1pm. Juju You, RN documented in [facility] encounterSam[facility]itan [facility]05-09-2025 Progress note* Quick Notes - Genesis Martinez MD - 07/11/2024 3:11 PM EDT RR- VB No. LOF No. CTXS No. Movement: present. Other c/o: No. Medication list reviewed. SENSITIVE EXAM: Sensitive exam not performed. Physical Exam See Flow Sheet Abd: soft, nontender, gravid Ext: edema: no A/P 33w0d Estimated Date of Delivery: 08/29/24 Assessment & Plan 33 weeks gestation of ([facility]) Supervision of high risk in third trimester ([facility]) cont. pnv. f/u in 2 weeks or prn birthing plan reviewed Genesis Martinez M.D. [facility]05-09-2025 Miscellaneous Notes* Quick Notes - Genesis Martinez MD - 07/11/2024 3:11 PM EDT RR- VB No. LOF No. CTXS No. Movement: present. Other c/o: No. Medication list reviewed. SENSITIVE EXAM: Sensitive exam not performed. Physical Exam See Flow Sheet Abd: soft, nontender, gravid Ext: edema: no A/P 33w0d Estimated Date of Delivery: 08/29/24 Assessment & Plan 33 weeks gestation of ([facility]) Supervision of high risk in third trimester ([facility]) cont. pnv. f/u in 2 weeks or prn birthing plan reviewed Genesis Martinez M.D. documented in this encounterSamaritan Hospital05-09-2025 Instructions* Patient Instructions* Sahara Landis MA - 07/11/2024 2:38 PM EDT SEQUENTIAL SCREENINGS [facility] offers sequential screenings for women who [...] testing. It will require an appointment withour coroner forensic technician. This is not an ultrasound performed [...] the above symptoms, contact our office at [phone] and ask to speak with anurse. After hours, you can call doctors registry at [phone] OR call [facility] at [phone] ask to have the doctor sales receptionist paged. If you consider this an emergency, dial 3-8-6 or go to your nearest emergency department. NEED HELP? Are you dealing with a violent or abusive relationship? Are you a victim of rape or sexual assult? Call [facility] ([place]) 24 hour Crisis Hotline: 748.910.7796 or 164-938-9071. MANUAL Your Guide to a Healthy manual is now on-line. Visit [email or web address] to download your free copy documented in this encounterSamaritan Hospital05-08-2025 Telephone encounter Note * Telephone Encounter - Sharon Yusuf RN - 07/10/2024 10:47 AM EDT Signed and faxed. Sharon Yusuf RN [facility]05-08-2025 Miscellaneous Notes* Telephone Encounter - Sharon Yusuf RN - 07/10/2024 10:47 AM EDT Signed and faxed. Sharon Yusuf RN * Telephone Encounter - Sharon Yusuf RN - 07/10/2024 8:50 AM EDT Breast pump order received from [employer]. To CP to sign. Sharon Yusuf RN documented in this encounterSamaritan Hospital05-08-2025 Telephone encounter Note * Telephone Encounter - Sharon Yusuf RN - 07/10/2024 8:50 AM EDT Breast pump order received from [employer]. To CP to sign. Sharon Yusuf RN [facility]05-05-2025 Progress note* Quick Notes - Georgia Lino [...] back pain during in third trimester ([facility]) - ICD9: 646.80, 724.2, ICD10: O26.893, M54.50 (primary diagnosis) - UA DIP, URINE (POC) 2. 32 weeks gestation of ([facility]) - ICD9: V22.2, ICD10: Z3A.32 3. Encounter for supervision of normal first in third trimester ([facility]) - ICD9: V22.0, ICD10: Z34.03 Georgia Lino MD [facility]05-05-2025 Miscellaneous Notes* Quick Notes - Georgia Lino [...] back pain during in third trimester ([facility]) - ICD9: 646.80, 724.2, ICD10: O26.893, M54.50 (primary diagnosis) - UA DIP, URINE (POC) 2. 32 weeks gestation of ([facility]) - ICD9: V22.2, ICD10: Z3A.32 3. Encounter for supervision of normal first in third trimester ([facility]) - ICD9: V22.0, ICD10: Z34.03 Georgia Lino MD documented in this encounterSam[facility]itan Hospital05-05-2025 Instructions* Patient Instructions* Sahara Landis MA - 07/07/2024 4:02 PM EDT SEQUENTIAL SCREENINGS The [facility] offers sequential screenings for women who [...] testing. It will require an appointment withour coroner forensic technician. This is not an ultrasound performed [...] the above symptoms, contact our office at [phone] and ask to speak with anurse. After hours, you can call doctors registry at [phone] OR call [facility] at [phone] ask to have the doctor sales receptionist paged. If you consider this an emergency, dial 9--1 or go to your nearest emergency department. NEED HELP? Are you dealing with a violent or abusive relationship? Are you a victim of rape or sexual assult? Call [facility] ([place]) 24 hour Crisis Hotline: 493.566.5179 or 039-091-7890. MANUAL Your Guide to a Healthy manual is now on-line. Visit [email or web address] to download your free copy documented in this encounterSamaritan Hospital04-15-2025 Telephone encounter Note * Telephone Encounter - Juju You RN - 06/17/2024 12:17 PM EDT Pt notified and voiced understanding. Juju You RN [facility]04-15-2025 Miscellaneous Notes* Telephone Encounter - Juju You [...] from 06/13/24. States she received notification from [facility] that she was not anemic; however, she [...] of range. Please advise and will send Xceedium message to Pt with response. Juju You RN documented in this encounterSamaritan Hospital04-15-2025 Telephone encounter Note * Telephone Encounter - Georgia Lino MD - 06/17/2024 12:04 PM EDT Her CBC is fine. There is nothing of concern. The labs values are established for non patient so they will flag as abnormal even when they are not [facility] Work Phone: [phone] Telephone encounter Note* Telephone Encounter - Juju [...] of range. Please advise and will send Frodiot message to Pt with response. Juju You RN [facility]04-13-2025 Radiology Diagnostic study note [facility] Imaging Services [address] [place] [address] CTA Chest W/WO Contrast MR#: [id number] Acct: [id number] Name: STEWART ZUNIGA Rep #: [id number] : 2000 F 24 From: Nabil Tran DO PCP: Care Physician,No Primary Status: REG ER Study:CTA Chest W/WO Contrast Date of Exam: 06/15/24 Exam# [id number] Ordering Dr: Frankie Jesus DO PROCEDURE: CTA [...] pelvis. Reading Location: [facility], ; No Primary Care Physician ~ Glove Operator: Signed [facility]04-13-2025 Evaluation note* Diagnosis Onset Date Resolution Status Admit Date Abdominal pain acute June 7:56pm acute June 15 7:56pm Shortness of breath acute June 15, 2024 7:56pm [facility] Work Phone: 1(131) 725-133604-13-2025 Evaluation note* Diagnosis Onset Date Resolution Status Admit Date 29 weeks gestation of acut e June 15, 2024 7:56pm Abdominal pain acute June 7:56pm Cramping affecting , antepartum acute June 15, 2024 7:56pm acute June 15 7:56pm Shortness of breath acute June 15, 2024 7:56pm 33 weeks gestation of acut e July 14, 2024 2:17pm Uterine contractions acute July 14, 2024 2:17pm [facility] Work Phone: 1(136) 903-348004-13-2025 Evaluation note* Diagnosis Onset Date Resolution Status [...] Uterine contractions acute July 15, 2024 8:50am [facility] Work Phone: 1(260) 371-961604-13-2025 Evaluation note* Diagnosis Onset Date Resolution Status [...] 7:18pm S/P acute August 22, 2024 7:18pm [facility] Work Phone: 1(466) 225-225104-11-2025 NoteHNO ID: [id number] Author: MILLY SINGH MD Service: ? Author [...] - Rhogam today - Discussed classes at [facility] and peds - RTO 2 wks Milly Singh [facility]04-11-2025 History of Present illness Narrative* Milly [...] - Rhogam today - Discussed classes at [facility] and peds - RTO 2 wks Milly Singh DO documented in this encounterSam[facility]itan Hospital04-11-2025 Instructions* Patient Instructions* Shantanu Gordon MA - 06/13/2024 1:23 PM EDT SEQUENTIAL SCREENINGS The [facility] offers sequential screenings for women who [...] testing. It will require an appointment withour coroner forensic technician. This is not an ultrasound performed [...] the above symptoms, contact our office at [phone] and ask to speak with anurse. After hours, you can call doctors registry at [phone] OR call [facility] at [phone] ask to have the doctor sales receptionist paged. If you consider this an emergency, dial or go to your nearest emergency department. NEED HELP? Are you dealing with a violent or abusive relationship? Are you a victim of rape or sexual assult? Call [facility] ([place]) 24 hour Crisis Hotline: 150.530.6110 or 739-936-2030. MANUAL Your Guide to a Healthy manual is now on-line. Visit [email or web address] to download your free copy documented in this encounterSamaritan Hospital04-08-2025 Telephone encounter Note * Telephone Encounter - Manas Vogel MA - 06/10/2024 10:48 AM EDT Submitted PA for Prilosec. Received immediate response that Your PA has been resolved. No additional PA is required. Manas Vogel MA [facility]04-08-2025 Miscellaneous Notes* Telephone Encounter - Manas Vogel MA - 06/10/2024 10:48 AM EDT Submitted PA for Prilosec. Received immediate response that Your PA has been resolved. No additional PA is required. Manas Vogel MA * Telephone Encounter - Izabela Collins - 06/10/2024 9:46 AM EDT Pt called in stating [facility] needs prior auth for Prilosec. Please advise, Thank you documented in this encounterSamaritan Hospital04-08-2025 Telephone encounter Note * Telephone Encounter - Izabela Collins - 06/10/2024 9:46 AM EDT Pt called in stating [facility] needs prior auth for Prilosec. Please advise, Thank you [address]08-2025 Telephone encounter Note* Telephone Encounter - Sharon Yusuf RN - 06/10/2024 9:06 AM EDT Left message for patient to check mychart message or call office. Sharon Yusuf RN [facility]04-08-2025 Miscellaneous Notes* Telephone Encounter - Sharon Yusuf [...] Sunday. [place] Wren RN documented in this encounterSamaritan Hospital04-08-2025 Telephone encounter Note * Telephone Encounter - Kahlil Escobar MD - 06/10/2024 8:42 AM EDT I would also try warm shower again or warm soak in tub, stretching 3 x day , heating pad. Sounds like it could be MSK in nature. If any further concerns or if pain is not relieved please notify office. [facility] Work Phone: 1(246) 728-335004-08-2025 Telephone encounter Note* Telephone Encounter - Georgia [...] OB visit is Sunday. [place] Wren RN [facility]04-02-2025 Telephone encounter Note* Telephone Encounter - Sharon Yusuf RN - 06/04/2024 4:59 PM EDT 27w5d Pharmacy requesting alternative for pantoprazole. See note below. Pharmacy comment: Alternative Requested:THE PRESCRIBED MEDICATION IS NOT COVERED BY INSURANCE. PLEASE CONSIDER CHANGING TO ONE OF THE SUGGESTED COVERED ALTERNATIVES. All Pharmacy Suggested Alternatives: Esomeprazole Magnesium 10 mg packet omeprazole (PRILOSEC) 10 mg capsule lansoprazole (PREVACID) 15 mg capsule [facility]04-02-2025 Miscellaneous Notes* Telephone Encounter - Sharon Yusuf [...] (PREVACID) 15 mg capsule documented in this encounterSamaritan Hospital04-02-2025 Progress note* Quick Notes - Amilcar Méndez [...] with 1 hour GCT Amilcar Méndez APRN.CNM [facility]04-02-2025 Miscellaneous Notes* Quick Notes - Amilcar Méndez [...] GCT Amilcar Méndez APRN.CNM documented in this encounterSam[facility]itan Hospital04-02-2025 Instructions* Patient Instructions* Manas Vogel MA - 06/04/2024 4:34 PM EDT SEQUENTIAL SCREENINGS The [facility] offers sequential screenings for women who [...] testing. It will require an appointment withour coroner forensic technician. This is not an ultrasound performed [...] the above symptoms, contact our office at [phone] and ask to speak with anurse. After hours, you can call doctors registry at [phone] OR call [facility] at [phone] ask to have the doctor sales receptionist paged. If you consider this an emergency, dial 9-1-1 or go to your nearest emergency department. NEED HELP? Are you dealing with a violent or abusive relationship? Are you a victim of rape or sexual assult? Call [facility] ([place]) 24 hour Crisis Hotline: 291.977.3045 or 584-516-5257. MANUAL Your Guide to a Healthy manual is now on-line. Visit [email or web address] to download your free copy documented in this encounterSamaritan Hospital04-02-2025 Telephone encounter Note * Telephone Encounter - Georgia Wren RN - 06/04/2024 3:54 PM EDT Called patient. Scheduled an appointment for today. Georgia Wren RN [facility]04-02-2025 Miscellaneous Notes* Telephone Encounter - Georgia Wren RN - 06/04/2024 3:54 PM EDT Called patient. Scheduled an appointment for today. Georgia Wren RN documented in this encounterSamaritan Hospital04-02-2025 Telephone encounter Note * Telephone Encounter - Georgia Wren RN - 06/04/2024 3:50 PM EDT Spoke with CP. Ok for patient to come to office instead of L&d. Appointment given. Advised thatpatient call the office for urgent request such as decreased FM instead of a Mychart message. Georgia Wren RN [facility]04-02-2025 Miscellaneous Notes* Telephone Encounter - Georgia [...] for an office visit? documented in this encounterSam[facility]itan Hospital04-02-2025 Telephone encounter Note * Telephone Encounter - Georgia Wren RN - 06/04/2024 2:44 PM EDT 27w5d Do you want her seen for an office visit? [facility]03-06-[facility]25 Progress note* Quick Notes - Georgia [...] - TYPE + SCREEN Georgia Lino MD [facility]03-06-2025 Miscellaneous Notes* Quick Notes - [place] [...] SCREEN Georgia Lino MD documented [facility] encounterSam[facility]03[facility] Instructions* Patient Instructions* Manas Vogel MA - 05/08/2024 9:52 AM EST SEQUENTIAL SCREENINGS [facility] offers sequential screenings for women who [...] testing. It will require an appointment withour coroner forensic technician. This is not an ultrasound performed [...] the above symptoms, contact our office at [phone] and ask to speak with anurse. After hours, you can call doctors registry at [phone] OR call [facility] at [phone] ask to have the doctor sales receptionist paged. If you consider this an emergency, dial 9--0 or go to your nearest emergency department. NEED HELP? Are you dealing with a violent or abusive relationship? Are you a victim of rape or sexual assult? Call [facility] ([place]) 24 hour Crisis Hotline: 695.484.4034 or 285-382-7683. MANUAL Your Guide to a Healthy manual is now on-line. Visit [email or web address]/[email or web address] to download your free copy documented in this encounterSamaritan Hospital02-28-2025 Progress note* Quick Notes - Milly [...] routine visit next week Milly Singh DO [facility] Miscellaneous Notes* Quick Notes - Milly [...] week Milly Singh DO documented in this encounterSam[facility]02-28-2025 Instructions* Patient Instructions* Amada Duran LPN - 05/02/2024 4:05 PM EST SEQUENTIAL SCREENINGS [facility] offers sequential screenings for women who [...] testing. It will require an appointment withour coroner forensic technician. This is not an ultrasound performed [...] the above symptoms, contact our office at [phone] and ask to speak with anurse. After hours, you can call doctors registry at [phone] OR call [facility] at [phone] ask to have the doctor sales receptionist paged. If you consider this an emergency, dial 9--1 or go to your nearest emergency department. NEED HELP? Are you dealing with a violent or abusive relationship? Are you a victim of rape or sexual assult? Call [facility] ([place]) 24 hour Crisis Hotline: 174.929.5682 or 076-664-6252. MANUAL Your Guide to a Healthy manual is now on-line. Visit [email or web address] to download your free copy documented in this encounterSamaritan Hospital02-20-2025 Telephone encounter Note * Telephone Encounter - Sharon Yusuf RN - 2024 12:43 PM EST Patient's mother notified. Sharon Yusuf RN [facility]02-20-2025 Miscellaneous Notes* Telephone Encounter - Sharon Yusuf [...] over 24 hours. Mother talked to provider sales receptionist early this morning and gave 2 imodium [...] advise. Sharon Yusuf RN documented in this encounterSam[facility]itan Hospital02-20-2025 Telephone encounter Note * Telephone Encounter - Mathew Gaviria RN - 2024 12:16 PM EST Left message to call office. Mathew Gaviria RN [facility]02-20-2025 Telephone encounter Note* Telephone Encounter - Ambreen Romero MD - 2024 11:52 AM EST Zofran and imodium are her main options. I would recommend going to ED if any signs of dehydration. Ambreen Romero MD [facility] Work Phone: [phone] Telephone encounter Note* Telephone Encounter - Sharon Yusuf RN - 2024 11:44 AM EST 21w6d Patient's mother calling for her. She has GI virus with vomiting and diarrhea for over 24 hours. Mother talked to provider sales receptionist early this morning and gave 2 imodium [...] if possible. Please advise. Sharon Yusuf RN [facility]02-10-2025 Progress note* Quick Notes - Martha [...] RTO in 4 weeks Martha Santamaria APRN.CNM [facility]02-10-2025 Miscellaneous Notes* Quick Notes - Martha [...] weeks Martha Santamaria APRN.CNM documented in this encounterSam[facility]02-10-2025 Instructions* Patient Instructions* Bruno Srivastava MA - 04/14/2024 10:18 AM EST SEQUENTIAL SCREENINGS [facility] offers sequential screenings for women who [...] testing. It will require an appointment withour coroner forensic technician. This is not an ultrasound performed [...] the above symptoms, contact our office at [phone] and ask to speak with anurse. After hours, you can call doctors registry at [phone] OR call [facility] at [phone] ask to have the doctor sales receptionist paged. If you consider this an emergency, dial 9-1-1 or go to your nearest emergency department. NEED HELP? Are you dealing with a violent or abusive relationship? Are you a victim of rape or sexual assult? Call [facility] ([place]) 24 hour Crisis Hotline: 959.135.1498 or 065-252-2955. MANUAL Your Guide to a Healthy manual is now on-line. Visit [email or web address]/[email or web address] to download your free copy documented in this encounterSamaritan Hospital02-04-2025 Progress note* Quick Notes - Ambreen Romero [...] on hydration and zofran Ambreen Romero MD [facility] Work Phone: 1(134) 472-246402-04-2025 Miscellaneous Notes* Quick Notes - Ambreen Romero [...] and roberto Romero MD documented in this encounterSamaritan Hospital02-04-2025 Instructions* Patient Instructions* Shantanu Gordon MA - 04/08/2024 8:57 AM EST SEQUENTIAL SCREENINGS [facility] offers sequential screenings for women who [...] testing. It will require an appointment withour coroner forensic technician. This is not an ultrasound performed [...] the above symptoms, contact our office at [phone] and ask to speak with anurse. After hours, you can call doctors registry at [phone] OR call [facility] at [phone] ask to have the doctor sales receptionist paged. If you consider this an emergency, dial 7-1-8 or go to your nearest emergency department. NEED HELP? Are you dealing with a violent or abusive relationship? Are you a victim of rape or sexual assult? Call [facility] ([place]) 24 hour Crisis Hotline: 553.616.7832 or 112-044-0675. MANUAL Your Guide to a Healthy manual is now on-line. Visit [email or web address]/[email or web address] to download your free copy documented in this encounterSamaritan Hospital02-03-2025 Telephone encounter Note * Telephone Encounter - Mathew Gaviria RN - 04/07/2024 4:54 PM EST Patient called back and appointment scheduled. Mathew Gaviria RN [facility]02-03-[facility]25 Miscellaneous Notes* Telephone Encounter - Mathew Gaviria [...] appointment. Martha Santamaria APRN.CNM documented in this encounterSamaritan Hospital02-03-2025 Telephone encounter Note * Telephone Encounter - Sharon Yusuf RN - 04/07/2024 4:48 PM EST Left message for patient to call office. Sharon Yusuf RN [facility]-03-[facility] Telephone encounter Note* Telephone Encounter - Martha Santamaria APRN.CNM - 04/07/2024 4:45 PM EST I would recommend appointment. Martha Santamaria APRN.CNM [facility]01-24-[facility] Instructions* Patient Instructions* Jay Byrd MD - 03/28/2024 9:56 AM EST The echocardiogram in December showed that the heart pumping function is 63%. This is very good. EKG is also normal. Therefore, please do not worry too much about heart arrhythmias. We can plan for a return visit as needed. documented in this encounterSamaritan Hospital01-24-2025 History of Present illness Narrative* Jay Byrd MD - 03/28/2024 9:15 AM EST Images from the original note were not included. [facility] Department of Cardiovascular Medicine SECTION OF CARDIAC PACING and ELECTROPHYSIOLOGY OUTPATIENT VISIT DATE March 28, 2024 OUTPATIENT VISIT TYPE ESTABLISHED PRIMARY CARE PHYSICIAN: Kayleen Mckay MD [facility] [place] [address] CHIEF COMPLAINT: Follow-up for tachycardia and syncope [...] in office 12/24/2023. She was given a [employer] monitor and mailed it back but monitor was never received by [employer] (confirmed with company). Echo 12/24/2023 showed EF=63% [...] INFORMATION: Jay Byrd MD documented in this encounterSamaritan Hospital01-24-2025 NoteHNO ID: [id number] Author: JAY BYRD MD Service: ? Author Type: Physician Type: Progress Notes Filed: 03/28/2024 10:26 Note Text: [facility] Department of Cardiovascular Medicine SECTION OF CARDIAC PACING and ELECTROPHYSIOLOGY OUTPATIENT VISIT DATE March 28, 2024 OUTPATIENT VISIT TYPE ESTABLISHED PRIMARY CARE PHYSICIAN: Kayleen Mckay MD [facility] [place] [id number] CHIEF COMPLAINT: Follow-up for tachycardia and syncope [...] in office 12/24/2023. She was given a [employer] monitor and mailed it back but monitor was never received by [employer] (confirmed with company). Echo 12/24/2023 showed EF=63% [...] obtained by others. CONTACT INFORMATION: Jay Byrd, [facility]01-14-2025 History of Present illness Narrative* Duke Fairchild [...] PATIENT PRESENTS WITH AN IMPLANTABLE OR ATTACHED LOTTERY MANAGER: No RADIOLOGY DEPARTMENT: General X-ray: Exam(s) Completed: Lower Extremity X- Ray(s): Knee, AP / LAT Right PERIPHERAL IV DATA: Not applicable SIGNED BY: RT Min(R) March 18, 2024 1:54 PM documented in this encounterSamaritan Hospital01-14-2025 NoteHNO ID: [id number] Author: DUKE FAIRCHILD RT(R) Service: ? Author Type: Engineer Design And Construction Type: Progress Notes Filed: 03/18/2024 14:02 Note [...] PATIENT PRESENTS WITH AN IMPLANTABLE OR ATTACHED LOTTERY MANAGER: No RADIOLOGY DEPARTMENT: General X-ray: Exam(s) Completed: Lower Extremity X-Ray(s): Knee, AP / LAT Right PERIPHERAL IV DATA: Not applicable SIGNED BY: RT Min(R) March 18, 2024 1:54 [facility]01-14-2025 NoteHNO ID: [id number] Author: GLENDY CARDONA APRN.STUDIO SET UP WORKER Service: ? Author Type: Nurse Practitioner Type: Progress Notes Filed: 03/18/2024 14:14 Note Text: This note was created using LogicLoopriter. Subjective Stewart Zuniga is a 23 year [...] in Jorge wrap after xray Glendy Cardona APRN.IVETH Medical Decision Making: Problems: Moderate: New problem with uncertain prognosis Data: Unique test(s) ordered: 1 Risk: Moderate: Moderate risk from testing/treatment Medical Decision Making Level: 4 - [facility]erate[facility] History of Present illness Narrative* Glendy Cardona APRN.CNP - 03/18/2024 1:33 PM EST Images from the original note were not included. This note was created using [employer]Loopriter. Subjective Stewart Zuniga is a 23 year [...] Level: 4 - Moderate documented in this encounterSamaritan Hospital01-13-2025 Progress note* Quick Notes - Milly [...] - RTO 4 wks Milly Singh DO [facility]01-13-2025 Miscellaneous Notes* Quick Notes - Milly [...] wks Milly Singh DO documented in this encounterSamaritan Hospital01-13-2025 Instructions* Patient Instructions* Shantanu Gordon MA - 03/17/2024 8:24 AM EST SEQUENTIAL SCREENINGS [facility] offers sequential screenings for women who [...] testing. It will require an appointment withour coroner forensic technician. This is not an ultrasound performed [...] the above symptoms, contact our office at [phone] and ask to speak with anurse. After hours, you can call doctors registry at [phone] OR call [facility] at [phone] ask to have the doctor sales receptionist paged. If you consider this an emergency, dial 9--5 or go to your nearest emergency department. NEED HELP? Are you dealing with a violent or abusive relationship? Are you a victim of rape or sexual assult? Call [facility] ([place]) 24 hour Crisis Hotline: 466.284.4149 or 886-827-7065. MANUAL Your Guide to a Healthy manual is now on-line. Visit [email or web address] to download your free copy documented in this encounterSamaritan Hospital01-02-2025 Progress note* Quick Notes - [place] [...] ICD9: V22.0, ICD10: Z34.02 [place] Lino MD [facility]01-02-2025 Miscellaneous Notes* Quick Notes - Georgia [...] Z34.02 Georgia Lino MD documented in this encounterSamaritan Hospital01-02-2025 Instructions* Patient Instructions* Shantanu Gordon MA - 03/06/2024 1:03 PM EST SEQUENTIAL SCREENINGS [facility] offers sequential screenings for women who [...] testing. It will require an appointment withour coroner forensic technician. This is not an ultrasound performed [...] the above symptoms, contact our office at [phone] and ask to speak with anurse. After hours, you can call doctors registry at [phone] OR call [facility] at [phone] ask to have the doctor sales receptionist paged. If you consider this an emergency, dial 9-1-1 or go to your nearest emergency department. NEED HELP? Are you dealing with a violent or abusive relationship? Are you a victim of rape or sexual assult? Call [facility] ([place]) 24 hour Crisis Hotline: 194.241.6091 or 464-369-7716. MANUAL Your Guide to a Healthy manual is now on-line. Visit [email or web address] to download your free copy documented in this encounterSamaritan Hospital12-16-2024 Telephone encounter Note * Telephone Encounter - Mathew Gaviria RN - 02/18/2024 12:02 PM EST Lab order pended. Patient 12w3d, seen in office today. Mathew Gaviria RN [facility]12-16-2024 Miscellaneous Notes* Telephone Encounter - Mathew Gaviria RN - 02/18/2024 12:02 PM EST Lab order pended. Patient 12w3d, seen in office today. Mathew Gaviria RN documented in this encounterSamaritan Hospital12-16-2024 Progress note* Quick Notes - Martha [...] RTO in 4 weeks Martha Santamaria APRN.CNM [facility]12-16-2024 Miscellaneous Notes* Quick Notes - Martha [...] weeks Martha Santamaria APRN.CNM documented in this encounterSamaritan Hospital12-16-2024 Instructions* Patient Instructions* Martha Santamaria APRN.CNM [...] to help control my nausea and vomiting? [employer] has a helpful fact sheet on nausea in with recommendations. You can review it here: https://[employer].org/fact-sheets/ewyuwh-pvjevllb-nrigfdqzm-nvp/pdf/. Also, eating small meals often, drinking plenty [...] the MotherToBaby fact sheet Paternal Exposures at https://mothertobaby.org/fact-sheets/cpwbgsxz-ckslmllaa-wlklhmspm/pdf/. SEQUENTIAL SCREENINGS [facility] offers sequential screenings for women who [...] testing. It will require an appointment withour coroner forensic technician. This is not an ultrasound performed [...] the above symptoms, contact our office at [phone] and ask to speak with anurse. After hours, you can call doctors registry at [phone] OR call [facility] at [phone] ask to have the doctor sales receptionist paged. If you consider this an emergency, dial 4-3-1 or go to your nearest emergency department. NEED HELP? Are you dealing with a violent or abusive relationship? Are you a victim of rape or sexual assult? Call [facility] ([place]) 24 hour Crisis Hotline: 222.284.2643 or 370-082-2687. MANUAL Your Guide to a Healthy manual is now on-line. Visit [email or web address]/HealthyPregnancyGuide to download your free copy documented in this encounterSamaritan Hospital12-02-2024 Telephone encounter Note * Telephone Encounter - Martha Santamaria APRN.CNM - 02/04/2024 11:20 AM EST Round ligament pain and normal discomfort. Good body mechanics, not to stretch or sudden movements which can make this worse. Warm bath, chiropractic can help. Martha Santamaria APRN.CNM [facility] Work Phone: 1(820) 533-434912-02-2024 Miscellaneous Notes* Telephone Encounter - Martha Santamaria APRN.CNM - 02/04/2024 11:20 AM EST Round ligament pain and normal discomfort. Good body mechanics, not to stretch or sudden movements which can make this worse. Warm bath, chiropractic can help. Martha Santamaria APRN.CNM * Telephone Encounter - Angie Ocasio APRN.CNP - 02/04/2024 11:04 AM EST I have no further recommendation. Should refer to sales receptionist provider. Angie Ocasio APRN.CNP * Telephone Encounter - Sharon Yusuf RN - 02/04/2024 10:57 AM EST 10w3d Responded to patient. Please advise if any further recommendations. Sharon Yusuf RN documented in this encounterSamaritan Hospital12-02-2024 Telephone encounter Note * Telephone Encounter - Angie Ocasio APRN.CNP - 02/04/2024 11:04 AM EST I have no further recommendation. Should refer to sales receptionist provider. Angie Ocasio APRN.CNP [facility]12-02-2024 Telephone encounter Note* Telephone Encounter - Sharon Yusuf RN - 02/04/2024 10:57 AM EST 10w3d Responded to patient. Please advise if any further recommendations. Sharon Yusuf RN [facility]11-11-2024 NoteHNO ID: [id number] Author: ANGIE OCASIO APRN.STUDIO SET UP WORKER Service: ? Author Type: Nurse Practitioner Type: Progress Notes Filed: 01/14/2024 09:06 Note Text: Patient declined international relations professor. INITIAL OB ASSESSMENT HPI: Stewart is a [...] the following (please check all that apply)? Rehab Services Aide; Lead Section Supervisor care Social History: Do you have any [...] Partner: Name: Jose Koehler Age: 22 Occupation: [employer] Gender: Male PAST MEDICAL HISTORY Diagnosis Date [...] discussed with the Patient or Patient's Authorized Picture Booker. As applicable, any other physician, advance practice provider, medical student, or other health professional student that will be observing or involved in the sensitive examination for educational or t (more content not included)...[facility]11-11-2024 History of Present illness Narrative* Angie Ocasio APRN.IVETH - 01/14/2024 7:53 AM EST Patient declined international relations professor. INITIAL OB ASSESSMENT HPI: Stewart is a [...] the following (please check all that apply)? Rehab Services Aide; Lead Section Supervisor care Social History: Do you have any [...] Partner: Name: Jose Koehler Age: 22 Occupation: [employer] working Gender: Male PAST MEDICAL HISTORY Diagnosis [...] discussed with the Patient or Patient's Authorized Picture Booker. As applicable, any other physician, advance practice provider, medical student, or other health professional student that will be observing or involved in the sensitive examination for educational or training purposes was discussed with the Patient or Authorized Picture Booker. The Patient or Authorized Picture Booker has agreed to proceed with the sensitive [...] activity, CRL consistent with LMP. Angie Ocasio, PET STORE MERCHANDISER.STUDIO SET UP WORKER ASSESSMENT: 23 year old No obstetric history on file. at Unknown wks gestational age PLAN: 1) Patient oriented to practice. Patient given new OB orientation folder. Discussed nutrition, folic acid supplementation, dietary guidelines, exercise, smoking, alcohol, caffeine, and drug use. Discussed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 07, 2024 Dr. Cailin Joy MD Attending Provider Activ e Start: August 07, 2024 End: August 07, 2024 Dr. Georgia Lino MD Referring Provider Active Start: August 07, 2024 End: August 07, 2024 Team Status: Inactive Member Role/Relationship Status Dates No Primary Care Physician Primary [...] August 22, 2024 End: August 25, 2024 Team Status: Inactive Member Role/Relationship Status Dates No Primary Care Physician Primary Care Provider Active Start: November 15, 2024 End: November 15, 2024 Dr. Dandy Montelongo MD Emergency Provider Active Start: November 15, 2024 End: November 15, 2024 Source Comments (unrecognize d section and content) In the event this informatio n is protected by the Federal Confidentiality of Alcohol and Drug Abuse Patient Records regulations: The Federal rules restrict any use of the information to criminally investigate or prosecute any alcohol or drug abuse patient.[facility] HospitalIn the event this information is protected by the Federal Confidentiality of Alcohol and Drug Abuse Patient Records regulations: The Federal rules restrict any use of the information to criminally investigate or prosecute any alcohol or drug abuse patient.[facility] HospitalIn the event this information is protected by the Federal Confidentiality of Alcohol and Drug Abuse Patient Records regulations: The Federal rules restrict any use of the information to criminally investigate or prosecute any alcohol or drug abuse patient.[facility] HospitalIn the event this information is protected by the Federal Confidentiality of Alcohol and Drug Abuse Patient Records regulations: The Federal rules restrict any use of the information to criminally investigate or prosecute any alcohol or drug abuse patient.[facility] HospitalIn the event this information is protected by the Federal Confidentiality of Alcohol and Drug Abuse Patient Records regulations: The Federal rules restrict any use of the information to criminally investigate or prosecute any alcohol or drug abuse patient.[facility] HospitalIn the event this information is protected by the Federal Confidentiality of Alcohol and Drug Abuse Patient Records regulations: The Federal rules restrict any use of the information to criminally investigate or prosecute any alcohol or drug abuse patient.[facility] HospitalIn the event this information is protected by the Federal Confidentiality of Alcohol and Drug Abuse Patient Records regulations: The Federal rules restrict any use of the information to criminally investigate or prosecute any alcohol or drug abuse patient.[facility] HospitalIn the event this information is protected by the Federal Confidentiality of Alcohol and Drug Abuse Patient Records regulations: The Federal rules restrict any use of the information to criminally investigate or prosecute any alcohol or drug abuse patient.[facility] HospitalIn the event this information is protected by the Federal Confidentiality of Alcohol and Drug Abuse Patient Records regulations: The Federal rules restrict any use of the information to criminally investigate or prosecute any alcohol or drug abuse patient.[facility] HospitalIn the event this information is protected by the Federal Confidentiality of Alcohol and Drug Abuse Patient Records regulations: The Federal rules restrict any use of the information to criminally investigate or prosecute any alcohol or drug abuse patient.[facility] HospitalIn the event this information is protected by the Federal Confidentiality of Alcohol and Drug Abuse Patient Records regulations: The Federal rules restrict any use of the information to criminally investigate or prosecute any alcohol or drug abuse patient.[facility] HospitalIn the event this information is protected [...] or prosecute any alcohol or drug abuse patient.[facility] HospitalIn the event this information is protected by the Federal Confidentiality of Alcohol and Drug Abuse Patient Records regulations: The Federal rules restrict any use of the information to criminally investigate or prosecute any alcohol or drug abuse patient.[facility] HospitalIn the event this information is protected by the Federal Confidentiality of Alcohol and Drug Abuse Patient Records regulations: The Federal rules restrict any use of the information to criminally investigate or prosecute any alcohol or drug abuse patient.[facility] HospitalIn the event this information is protected by the Federal Confidentiality of Alcohol and Drug Abuse Patient Records regulations: The Federal rules restrict any use of the information to criminally investigate or prosecute any alcohol or drug abuse patient.[facility] HospitalIn the event this information is protected by the Federal Confidentiality of Alcohol and Drug Abuse Patient Records regulations: The Federal rules restrict any use of the information to criminally investigate or prosecute any alcohol or drug abuse patient.[facility] HospitalIn the event this information is protected by the Federal Confidentiality of Alcohol and Drug Abuse Patient Records regulations: The Federal rules restrict any use of the information to criminally investigate or prosecute any alcohol or drug abuse patient.[facility] HospitalIn the event this information is protected by the Federal Confidentiality of Alcohol and Drug Abuse Patient Records regulations: The Federal rules restrict any use of the information to criminally investigate or prosecute any alcohol or drug abuse patient.[facility] HospitalIn the event this information is protected by the Federal Confidentiality of Alcohol and Drug Abuse Patient Records regulations: The Federal rules restrict any use of the information to criminally investigate or prosecute any alcohol or drug abuse patient.[facility] HospitalIn the event this information is protected by the Federal Confidentiality of Alcohol and Drug Abuse Patient Records regulations: The Federal rules restrict any use of the information to criminally investigate or prosecute any alcohol or drug abuse patient.[facility] HospitalIn the event this information is protected by the Federal Confidentiality of Alcohol and Drug Abuse Patient Records regulations: The Federal rules restrict any use of the information to criminally investigate or prosecute any alcohol or drug abuse patient.[facility] HospitalIn the event this information is protected by the Federal Confidentiality of Alcohol and Drug Abuse Patient Records regulations: The Federal rules restrict any use of the information to criminally investigate or prosecute any alcohol or drug abuse patient.[facility] HospitalIn the event this information is protected by the Federal Confidentiality of Alcohol and Drug Abuse Patient Records regulations: The Federal rules restrict any use of the information to criminally investigate or prosecute any alcohol or drug abuse patient.[facility] HospitalIn the event this information is protected by the Federal Confidentiality of Alcohol and Drug Abuse Patient Records regulations: The Federal rules restrict any use of the information to criminally investigate or prosecute any alcohol or drug abuse patient.[facility] HospitalIn the event this information is protected by the Federal Confidentiality of Alcohol and Drug Abuse Patient Records regulations: The Federal rules restrict any use of the information to criminally investigate or prosecute any alcohol or drug abuse patient.[facility] HospitalIn the event this information is protected by the Federal Confidentiality of Alcohol and Drug Abuse Patient Records regulations: The Federal rules restrict any use of the information to criminally investigate or prosecute any alcohol or drug abuse patient.[facility] HospitalIn the event this information is protected by the Federal Confidentiality of Alcohol and Drug Abuse Patient Records regulations: The Federal rules restrict any use of the information to criminally investigate or prosecute any alcohol or drug abuse patient.[facility] HospitalIn the event this information is protected by the Federal Confidentiality of Alcohol and Drug Abuse Patient Records regulations: The Federal rules restrict any use of the information to criminally investigate or prosecute any alcohol or drug abuse patient.[facility] HospitalIn the event this information is protected by the Federal Confidentiality of Alcohol and Drug Abuse Patient Records regulations: The Federal rules restrict any use of the information to criminally investigate or prosecute any alcohol or drug abuse patient.[facility] HospitalIn the event this information is protected by the Federal Confidentiality of Alcohol and Drug Abuse Patient Records regulations: The Federal rules restrict any use of the information to criminally investigate or prosecute any alcohol or drug abuse patient.[facility] HospitalIn the event this information is protected by the Federal Confidentiality of Alcohol and Drug Abuse Patient Records regulations: The Federal rules restrict any use of the information to criminally investigate or prosecute any alcohol or drug abuse patient.[facility] HospitalIn the event this information is protected by the Federal Confidentiality of Alcohol and Drug Abuse Patient Records regulations: The Federal rules restrict any use of the information to criminally investigate or prosecute any alcohol or drug abuse patient.[facility] HospitalIn the event this information is protected by the Federal Confidentiality of Alcohol and Drug Abuse Patient Records regulations: The Federal rules restrict any use of the information to criminally investigate or prosecute any alcohol or drug abuse patient.[facility] HospitalIn the event this information is protected by the Federal Confidentiality of Alcohol and Drug Abuse Patient Records regulations: The Federal rules restrict any use of the information to criminally investigate or prosecute any alcohol or drug abuse patient.[facility] HospitalIn the event this information is protected by the Federal Confidentiality of Alcohol and Drug Abuse Patient Records regulations: The Federal rules restrict any use of the information to criminally investigate or prosecute any alcohol or drug abuse patient.[facility] HospitalIn the event this information is protected by the Federal Confidentiality of Alcohol and Drug Abuse Patient Records regulations: The Federal rules restrict any use of the information to criminally investigate or prosecute any alcohol or drug abuse patient.[facility] HospitalIn the event this information is protected by the Federal Confidentiality of Alcohol and Drug Abuse Patient Records regulations: The Federal rules restrict any use of the information to criminally investigate or prosecute any alcohol or drug abuse patient.[facility] HospitalIn the event this information is protected by the Federal Confidentiality of Alcohol and Drug Abuse Patient Records regulations: The Federal rules restrict any use of the information to criminally investigate or prosecute any alcohol or drug abuse patient.[facility] HospitalIn the event this information is protected by the Federal Confidentiality of Alcohol and Drug Abuse Patient Records regulations: The Federal rules restrict any use of the information to criminally investigate or prosecute any alcohol or drug abuse patient.[facility] HospitalIn the event this information is protected by the Federal Confidentiality of Alcohol and Drug Abuse Patient Records regulations: The Federal rules restrict any use of the information to criminally investigate or prosecute any alcohol or drug abuse patient.[facility] HospitalIn the event this information is protected by the Federal Confidentiality of Alcohol and Drug Abuse Patient Records regulations: The Federal rules restrict any use of the information to criminally investigate or prosecute any alcohol or drug abuse patient.[facility] HospitalIn the event this information is protected by the Federal Confidentiality of Alcohol and Drug Abuse Patient Records regulations: The Federal rules restrict any use of the information to criminally investigate or prosecute any alcohol or drug abuse patient.[facility] HospitalIn the event this information is protected by the Federal Confidentiality of Alcohol and Drug Abuse Patient Records regulations: The Federal rules restrict any use of the information to criminally investigate or prosecute any alcohol or drug abuse patient.[facility] HospitalIn the event this information is protected by the Federal Confidentiality of Alcohol and Drug Abuse Patient Records regulations: The Federal rules restrict any use of the information to criminally investigate or prosecute any alcohol or drug abuse patient.[facility] HospitalIn the event this information is protected by the Federal Confidentiality of Alcohol and Drug Abuse Patient Records regulations: The Federal rules restrict any use of the information to criminally investigate or prosecute any alcohol or drug abuse patient.[facility] HospitalIn the event this information is protected by the Federal Confidentiality of Alcohol and Drug Abuse Patient Records regulations: The Federal rules restrict any use of the information to criminally investigate or prosecute any alcohol or drug abuse patient.[facility] HospitalIn the event this information is protected by the Federal Confidentiality of Alcohol and Drug Abuse Patient Records regulations: The Federal rules restrict any use of the information to criminally investigate or prosecute any alcohol or drug abuse patient.[facility] HospitalIn the event this information is protected by the Federal Confidentiality of Alcohol and Drug Abuse Patient Records regulations: The Federal rules restrict any use of the information to criminally investigate or prosecute any alcohol or drug abuse patient.[facility] HospitalIn the event this information is protected by the Federal Confidentiality of Alcohol and Drug Abuse Patient Records regulations: The Federal rules restrict any use of the information to criminally investigate or prosecute any alcohol or drug abuse patient.[facility] HospitalIn the event this information is protected by the Federal Confidentiality of Alcohol and Drug Abuse Patient Records regulations: The Federal rules restrict any use of the information to criminally investigate or prosecute any alcohol or drug abuse patient.[facility] HospitalIn the event this information is protected by the Federal Confidentiality of Alcohol and Drug Abuse Patient Records regulations: The Federal rules restrict any use of the information to criminally investigate or prosecute any alcohol or drug abuse patient.[facility] HospitalIn the event this information is protected by the Federal Confidentiality of Alcohol and Drug Abuse Patient Records regulations: The Federal rules restrict any use of the information to criminally investigate or prosecute any alcohol or drug abuse patient.[facility] HospitalIn the event this information is protected by the Federal Confidentiality of Alcohol and Drug Abuse Patient Records regulations: The Federal rules restrict any use of the information to criminally investigate or prosecute any alcohol or drug abuse patient.[facility] HospitalIn the event this information is protected by the Federal Confidentiality of Alcohol and Drug Abuse Patient Records regulations: The Federal rules restrict any use of the information to criminally investigate or prosecute any alcohol or drug abuse patient.[facility] HospitalIn the event this information is protected by the Federal Confidentiality of Alcohol and Drug Abuse Patient Records regulations: The Federal rules restrict any use of the information to criminally investigate or prosecute any alcohol or drug abuse patient.[facility] HospitalIn the event this information is protected by the Federal Confidentiality of Alcohol and Drug Abuse Patient Records regulations: The Federal rules restrict any use of the information to criminally investigate or prosecute any alcohol or drug abuse patient.[facility] HospitalIn the event this information is protected by the Federal Confidentiality of Alcohol and Drug Abuse Patient Records regulations: The Federal rules restrict any use of the information to criminally investigate or prosecute any alcohol or drug abuse patient.[facility] HospitalIn the event this information is protected by the Federal Confidentiality of Alcohol and Drug Abuse Patient Records regulations: The Federal rules restrict any use of the information to criminally investigate or prosecute any alcohol or drug abuse patient.[facility] HospitalIn the event this information is protected by the Federal Confidentiality of Alcohol and Drug Abuse Patient Records regulations: The Federal rules restrict any use of the information to criminally investigate or prosecute any alcohol or drug abuse patient.[facility] HospitalIn the event this information is protected by the Federal Confidentiality of Alcohol and Drug Abuse Patient Records regulations: The Federal rules restrict any use of the information to criminally investigate or prosecute any alcohol or drug abuse patient.[facility] HospitalIn the event this information is protected [...] or prosecute any alcohol or drug abuse patient.[facility] HospitalIn the event this information is protected by the Federal Confidentiality of Alcohol and Drug Abuse Patient Records regulations: The Federal rules restrict any use of the information to criminally investigate or prosecute any alcohol or drug abuse patient.[facility] HospitalIn the event this information is protected by the Federal Confidentiality of Alcohol and Drug Abuse Patient Records regulations: The Federal rules restrict any use of the information to criminally investigate or prosecute any alcohol or drug abuse patient.[facility] HospitalIn the event this information is protected by the Federal Confidentiality of Alcohol and Drug Abuse Patient Records regulations: The Federal rules restrict any use of the information to criminally investigate or prosecute any alcohol or drug abuse patient.[facility] HospitalIn the event this information is protected by the Federal Confidentiality of Alcohol and Drug Abuse Patient Records regulations: The Federal rules restrict any use of the information to criminally investigate or prosecute any alcohol or drug abuse patient.[facility] HospitalIn the event this information is protected by the Federal Confidentiality of Alcohol and Drug Abuse Patient Records regulations: The Federal rules restrict any use of the information to criminally investigate or prosecute any alcohol or drug abuse patient.[facility] HospitalIn the event this information is protected by the Federal Confidentiality of Alcohol and Drug Abuse Patient Records regulations: The Federal rules restrict any use of the information to criminally investigate or prosecute any alcohol or drug abuse patient.[facility] HospitalIn the event this information is protected by the Federal Confidentiality of Alcohol and Drug Abuse Patient Records regulations: The Federal rules restrict any use of the information to criminally investigate or prosecute any alcohol or drug abuse patient.[facility] HospitalIn the event this information is protected by the Federal Confidentiality of Alcohol and Drug Abuse Patient Records regulations: The Federal rules restrict any use of the information to criminally investigate or prosecute any alcohol or drug abuse patient.[facility] HospitalIn the event this information is protected by the Federal Confidentiality of Alcohol and Drug Abuse Patient Records regulations: The Federal rules restrict any use of the information to criminally investigate or prosecute any alcohol or drug abuse patient.[facility] HospitalIn the event this information is protected by the Federal Confidentiality of Alcohol and Drug Abuse Patient Records regulations: The Federal rules restrict any use of the information to criminally investigate or prosecute any alcohol or drug abuse patient.[facility] HospitalIn the event this information is protected by the Federal Confidentiality of Alcohol and Drug Abuse Patient Records regulations: The Federal rules restrict any use of the information to criminally investigate or prosecute any alcohol or drug abuse patient.[facility] HospitalIn the event this information is protected by the Federal Confidentiality of Alcohol and Drug Abuse Patient Records regulations: The Federal rules restrict any use of the information to criminally investigate or prosecute any alcohol or drug abuse patient.[facility] HospitalIn the event this information is protected by the Federal Confidentiality of Alcohol and Drug Abuse Patient Records regulations: The Federal rules restrict any use of the information to criminally investigate or prosecute any alcohol or drug abuse patient.[facility] Reason for Visit (unrecogniz ed section and content) Reason Comments Shoulder Injury L shoulder Reason Onset Date Comments Palpitations 12/24/2023 Reason Comments Event ZIO PATCH Reason Onset Date Comments Care 02/18/2024 Reason Comments US Specialty Diagnoses / Procedures Referred By Contac t [facility]oses 7 weeks gestation of Procedures NUCHAL TRANSLUCENCY WHI US NUCHAL TRANSLUCENCY 1ST GESTATION Bhargavi, Angie, [employer] WORK[employer] [address] [place] [address] [address] Referral ID Status Reason Start Date Expiration Date V isits Requested Visits Authorized [id number] Closed Auto-Generate d Referral 01/14/2024 01/13/2025 1 1 Reason Onset Date Comments Care 03/06/2024 Reason Onset Date Comments Care 03/17/2024 Reason Comments Knee Injury R knee injury x toda y Reason Onset Date Comments Arrhythmia 03/28/2024 Reason Onset Date Comments Care 04/08/2024 Reason Onset Date Comments Care 04/14/2024 Specialty Diagnoses / Procedures Referred By Vaibhav giraldo Referred To Contact [facility] Diagnoses 12 weeks gestation of Encounter for supervision of normal first in second trimester Procedures OBSTETRIC ULTRASOUND WHI US PREG UTERUS AFTER 1ST TRIMEST GESTATION Martha Santamaria APRN.CNM [address] [place] [address] Phone: tel: fax: [address] [phone] Referral ID Status Reason Start Date Expiration Date V isits Requested Visits Authorized [id number] Closed Auto-Generate d Referral 02/18/2024 02/17/2025 1 [...] Procedures CONSULT TO [facility]/OUTPATIENT [facility] 60 MINUTES Milly Singh MD [address] [place] [address] Phone: tel: fax: Referral ID Status Reason Start Date Expiration Date V isits Requested Visits Authorized [id number] Closed PCP Requested Referral 09/11/2024 09/11/2025 1 [...] section and content) DATE CREATED AUTHOR 05/03/2023 [facility] DATE CREATED AUTHOR AUTHOR'S ORGANIZ ATION 07/11/2024 [facility] DATE CREATED AUTHOR AUTHOR'S ORGANIZ ATION 07/18/2024 [facility] DATE CREATED AUTHOR AUTHOR'S ORGANIZ ATION 09/28/2024 [facility] DATE CREATED AUTHOR AUTHOR'S ORGANIZ ATION 10/11/2024 [facility] DATE CREATED AUTHOR AUTHOR'S ORGANIZ ATION 11/14/2024 [facility] FOR RECORDS PERTAINING TO PATIENTS WHO [...] BE BASED ON THE PRIMARY CLINICAL RECORDS. [facility]. provides no warranty or guarantee of the accuracy or completeness of information in this document.
[2024-11-15] MEDS: HYDROcodone Bitartrate/Apap 5/325 Tablet PO (18:15)
[2024-11-15 18:16] VITALS: BP 133/85; PULSE 110; RESP 16; TEMP 37.1; O2SAT 97
== END 2024-11-15 18:20 | disposition home or self-care (01) ==
PROVIDERS: Emergency Provider Emergency Medicine; Visit Provider Emergency Medicine
DX: K40.90 Unilateral inguinal hernia, without obstruction or gangrene, not specified as recurrent (principal); R03.0 Elevated blood-pressure reading, without diagnosis of hypertension
CPT/HCPCS: 99284

== ENCOUNTER 2024-11-20 17:22 | Emergency (ER) | payer OTHER, SELFPAY ==
[2024-11-20 17:23] VITALS: BP 132/91; PULSE 100; RESP 16; TEMP 37; O2SAT 98
--- NOTE | 2024-11-20 17:55 | RAD_ITS ---
PROCEDURE: RIGHT KNEE 4 OR MORE VIEWS 11/20/2024 REASON FOR EXAM: INJURY/PAIN TECHNIQUE: Procedure Code: RADKN Modality: DX Procedure: KNEE 4 OR MORE VIEWS Laterality: Right COMPARISON: 07/06/2023 FINDINGS: No acute fracture or dislocation. Alignment is anatomic. Preserved joint spaces. No joint effusion. No aggressive osseous lesion. No marked soft tissue swelling or radiopaque foreign body. RAD/Knee 4 or More Views IMPRESSION: No acute fracture or dislocation. Reading Location: [facility]
--- NOTE | 2024-11-20 18:06 | EX.ED.GENINJ ---
HPI History of Present Illness Chief Complaint: Lower Extremity Injury Detail of Chief Complaint: Right knee pain after blunt trauma Informant: patient Onset/Context/Timing Onset: Today and Hours Mechanism/Context: Blunt Injury and Fall (Onto right knee.) Location of pain/injuries: Right Knee Quality of Pain: Dull and Aching Location: Right knee inferior to the patella Current Severity: Mild Maximum Severity: Severe Worsened by: Movement and walking Relieved by: Nothing per patient Associated Symptoms Associated Symptoms: Negative for Parasthesias, Weakness, Loss of function, Inability to ambulate, Loss of consciousness or Amnesia Narrative Narrative: Patient is a 24-year-old female. Last normal menstrual period November 09. She presents with right knee pain after blunt trauma. She passed out . She fell onto the knee. She denies paresthesia, anesthesia or motor weakness. She denies hip pain or ankle pain. She has injured that knee in the past. Had a meniscus injury and had arthroscopic surgery. Recent Illness/Hospitalization: No [facility] Medical History delivery delivered Depression Anxiety Physical exam, pre-employment Palpitations Chest pain PVCs (premature ventricular contractions) Cephalgia Contact with and (suspected) exposure to other viral communicable diseases Strain of right knee Home Medications ?Medication ?Instructions ?Recorded ?Last Taken ?Type acetaminophen 325 mg tablet 325 mg PO ONCE PRN fever or pain 12/08/21 Unknown History (Tylenol) metoprolol succinate 25 mg 25 mg PO DAILY PVC 07/14/24 08/22/24 History tablet,extended release 24 hr vit no.95-ferrous 1 tab PO DAILY 07/14/24 08/22/24 History fumarate 28 mg-folic acid 800 mcg tablet () pantoprazole 20 mg tablet,delayed 20 mg PO DAILY heartburn 08/07/24 08/21/24 History release (Protonix) sertraline 25 mg tablet (Zoloft) 25 mg PO DAILY depression and 08/07/24 08/06/24 History anxiety hydrocodone-acetaminophen 5-325mg 1 tab PO Q6H PRN PRN Pain 2 days 11/15/24 Unknown Rx 5mg-325mg #5 TABLETS naproxen 500 mg tablet 500 mg PO BID PRN pain #14 tabs 11/15/24 Unknown Rx cephalexin 500 mg capsule 500 mg PO TID 11/20/24 Unknown History drospirenone 3 mg-ethinyl 1 tab PO DAILY 11/20/24 Unknown History estradiol 0.02 mg tablet (Loryna (28)) naproxen 500 mg tablet 500 mg PO BID #14 tabs 11/20/24 Unknown Rx naproxen sodium 550 mg tablet 550 mg PO BID 11/20/24 Unknown History Allergy/AdvReac Type Severity Reaction Status Date / Time lactose Allergy Mild Unknown Verified 11/20/24 17:25 adhesive (adhesives) AdvReac Severe Rash Verified 11/20/24 17:25 Family History Grandmother Heart disease Parkinsons Cancer Grandfather Cancer Surgical History Hx of arthroscopy of right knee Social History household members: spouse housing: house Smoking Status: Never smoker alcohol intake: never substance use type: does not use caffeine: Yes ROS ROS ED Musculoskeletal Musculoskeletal: Reports other Details: Right knee pain. ; Denies arthralgias, back pain, myalgias or neck pain Integumentary Denies Abrasions or rash Neurologic Neurologic: Denies paresthesias or weakness EXAM Physical Exam Const Vital Signs: 11/20/24 17:23 Temperature 98.6 F Temperature Source Oral Pulse Rate 100 Respiratory Rate 16 Blood Pressure 132/91 H Blood Pressure Mean 104 Pulse Ox 98 Oxygen Delivery Method Room Air Positive well nourished and well developed General Appearance ED: well developed HEENT Negative for atraumatic Eyes PERRL and EOMs intact bilaterally Resp normal respiratory effort Cardio regular rhythm Rate: regular rate Extremity normal to inspection; Negative for full ROM Extremity Narrative: Limited flexion extension because of pain. Patient is able to extend to 180 degrees and hold it for 3 seconds. He is able to flex to approximately 100 degrees. There is no pain ovation of the patella. The patellas not blottable. There is no obvious effusion. There is pain outpatient inferior to the patella. She complains of pain with varus and valgus stress testing. There is no laxity. Modified Luz Maria's test was negative. She complains of pain however. Kamari's test was negative. Again she complained of pain. There is no pain patient to popliteal fossa or fullness in the popliteal fossa. DP pulses palpable and 2+.. No General Extremety ED: Yes tenderness; Negative for deformity or edema General Extremity: Negative for deformity or edema Neuro oriented x3, CN's II-XII intact bilaterally and moves all extremities Psych mental status grossly normal and thought process normal Skin no rashes or lesions noted, skin turgor normal and no jaundice MDM MDM MDM Narrative Medical decision making narrative: 4 view x-ray of the knee was obtained to rule out patella fracture versus contusion. Radiography Chest X-Ray - ED: Read by ED Physician (4 view x-ray of the knee reveals no effusion. The patella is in proper position. There is no fracture, subluxation dislocation.) Treatment and Re-Evaluation Narrative: NSAIDs and ice Discharge Plan Triage Chief Complaint: Lower Extremity Injury ED Provider: Chapin Wagner Dx/Rx/DC Orders Clinical Impression: Contusion of right knee, initial encounter, Injury due to fall Instructions: ED Contusion, Lower Extremity Prescriptions: New naproxen 500 mg tablet 500 mg PO BID Qty: 14 0RF No Action acetaminophen [Tylenol] 325 mg tablet 325 mg PO ONCE PRN (Reason: fever or pain) pantoprazole [Protonix] 20 mg tablet,delayed release (DR/EC) 20 mg PO DAILY sertraline [Zoloft] 25 mg tablet 25 mg PO DAILY hydrocodone-acetaminophen 5-325 mg tablet 1 tab PO Q6H PRN PRN (Reason: Pain) 2 Days Qty: 5 0RF cephalexin 500 mg capsule 500 mg PO TID naproxen sodium 550 mg tablet 550 mg PO BID drospirenone-ethinyl estradiol [Loryna (28)] 3-0.02 mg tablet 1 tab PO DAILY PNV no.95-ferrous fumarate-FA [] 28 mg iron- 800 mcg tablet 1 tab PO DAILY metoprolol succinate 25 mg tablet extended release 24 hr 25 mg PO DAILY naproxen 500 mg tablet 500 mg PO BID PRN (Reason: pain) Qty: 14 0RF Primary Care Provider: Aby Puckett Referrals: Aby Puckett, PACristhianC [Primary Care Provider, Medical] - 1 Week if not improving Activity Restrictions/Additional Instructions: Apply ice to your right knee 6-8 times per day for the next 3 to 5 days. Print Language: Khmer Disposition Disposition: Home, Self Care
[2024-11-20 18:20] VITALS: BP 122/61; PULSE 86; RESP 18; TEMP 36.6; O2SAT 100
== END 2024-11-20 18:21 | disposition home or self-care (01) ==
PROVIDERS: Emergency Provider Emergency Medicine; PCP Family Medicine; Visit Provider Emergency Medicine
DX: S80.01XA Contusion of right knee, initial encounter (principal); F41.9 Anxiety disorder, unspecified; F32.A Depression, unspecified; W19.XXXA Unspecified fall, initial encounter; Z79.899 Other long term (current) drug therapy
CPT/HCPCS: 73564; 99282